=== PATIENT | male | born 1945 | race Caucasian/White ===

== ENCOUNTER 2016-10-26 10:37 | Inpatient (IN) | payer OTHER ==
[2016-10-26] VITALS (12 sets, daily range): BP systolic 69–127; BP diastolic 43–55
[~2016-10-26] VITALS: Ht 170.2 cm; Wt 90.1 kg
--- NOTE | 2016-10-26 15:00 | HP ---
ADMIT DATE: 10/26/2016 CHIEF COMPLAINT: CHF. HISTORY OF PRESENT ILLNESS: The patient is a pleasant 71-year-old male who is a . Basically, he was at the [place] this past week. He has been there for a few days. They were treating him for CHF and I think possibly for a GI bleed, although when they called me from the [place], they told me they are transferring him for CHF. He has now been accepted here. He has just got up to the floor where he is a little hypotensive. We started a little bit of fluid. PAST SURGICAL HISTORY: Per the patient, he had a permanent pacemaker at within the past couple of years. He also had bypass surgery at [facility] within the past few years. PAST MEDICAL HISTORY: He has a history of chronic CHF, diabetes, hypertension, hyperlipidemia. ALLERGIES: None. FAMILY HISTORY: Hypertension. SOCIAL HISTORY: He is a retired . He fought in [place]. He does not smoke or take drugs. MEDICATIONS: Reviewed, please refer to the MRAD. REVIEW OF SYSTEMS: GENERAL: No history of weight change or fevers. He complains of weakness. SKIN: No bruising, hair changes or rashes. EYES: No blurred, double or loss of vision. NOSE AND THROAT: No history of nosebleeds, hoarseness or sore throat. HEART: No history of palpitations, chest pain or shortness of breath on exertion. LUNGS: Denies cough, hemoptysis, or wheezing. He complains of shortness of breath. GASTROINTESTINAL: Denies changes in appetite, nausea, vomiting, diarrhea or constipation. GENITOURINARY: No history of frequency, urgency, hesitancy or nocturia. NEUROLOGIC: Denies history of numbness, tingling, tremor or weakness. PSYCHIATRIC: No history of panic, anxiety or depression. ENDOCRINE: No history of heat or cold intolerance, polyuria or polydipsia. EXTREMITIES: Denies muscle weakness, joint pain, pain on walking or stiffness. PHYSICAL EXAMINATION: VITAL SIGNS: Temperature afebrile, pulse 68, respirations 18, blood pressure 100/80. GENERAL: He is alert, cooperative. HEART: Normal S1, S2 with a soft S3. LUNGS: Clear. GASTROINTESTINAL: Abdomen is soft, decreased bowel sounds, minimal tenderness. EXTREMITIES: 1+ edema. SKIN: No rashes. PSYCHIATRIC: He is a little bit anxious. VASCULAR: Good capillary refill. ENDOCRINE: No thyromegaly. LYMPHATICS: No cervical nodes. HEMATOPOIETIC: No bruising. LABORATORY DATA: Pending. ASSESSMENT AND PLAN: Pmezw-lj-tfmsaol systolic and diastolic heart failure and xbmvc-bx-tofpuga anemia. The patient ____. We will try to give him diuretics, but he is hypotensive, so we are actually having to give him some fluids at this point. Consult cardiology, serial enzymes, serial EKGs, echocardiogram, consult GI. We will check a CBC and a CMP. PROGNOSIS: Guarded. ARGENIS BURT DO DR: ERIC/pepper JOB#: [id number] / [id number]
--- NOTE | 2016-10-26 15:35 | PDOC2 ---
CARDIAC CONSULT DATE OF CONSULT Date of Consult DATE: 10/26/16 TIME: 15:28 HISTORY OF PRESENT ILLNESS HISTORY OF PRESENT ILLNESS ALLERGIES ALLERGIES: Coded Allergies: Ppthvsw-Tvj-Ymo Reductase Inhibitor (Verified Allergy, Intermediate, ) bupropion (Verified Allergy, Intermediate, 10/26/16) isosorbide (Verified Allergy, Intermediate, 10/26/16) metformin (Verified Allergy, Intermediate, 10/26/16) mupirocin (Verified Allergy, Intermediate, 10/26/16) terazosin (Verified Allergy, Intermediate, 10/26/16) VITALS VITALS Vital Signs Date Time Temp Pulse Resp B/P Pulse Ox O2 Delivery O2 Flow Rate FiO2 10/26/16 14:56 59 69/43 Nasal Cannula 4.0 MEHDI GALVAN VOCATIONAL NURSE LVN Oct 26, 2016 15:35
[2016-10-26 15:48] LABS: CALCIUM 7.6 mg/dL (8.5-10.1); CREATININE 3.3 mg/dL (0.7-1.3); GFR 18.5; POTASSIUM 4.4 mmol/L (3.5-5.1); TOTAL BILIRUBIN 0.5 mg/dL (0.2-1.0); TOTAL PROTEIN 6.1 g/dL (6.4-8.2)
[2016-10-26 15:59] LABS: MAGNESIUM 2.4 mg/dL (1.8-2.4)
--- NOTE | 2016-10-26 16:01 | EKG ---
[facility] [address] [place] [address] Test Date: 2016-10-26 Test Time: 15:59:19 Pat Name: EMI YIN Department: Room: 205 1 Gender: M Settlement Technician: FLAKITO : 1945 Requested By: MEHDI GALVAN Order Number: [id number] Reading MD: Ventura Singh Measurements Intervals [place] Rate: 60 P: DE: QRS: -85 QRSD: 154 T: -72 QT: 502 QTc: 502 Interpretive Statements V-PACED Electronically Signed On 10-27-2016 17:56:46 CDT by Ventura Singh
[2016-10-26 16:07] LABS: CHOLESTEROL/HDL RATIO 7.8
--- NOTE | 2016-10-26 16:30 | PDOC2 ---
GI CONSULT Reason For Consult: GI Bleed? HPI: HPI: Seen earlier this afternoon just before transfer to ICU for hypotension. 71 y/ o transferred from [facility], admitted diagnosis CHF. Was apparently admitted there for CHF, had chest pain and elevated troponin, and was hypotensive on nitro drip. EGD and cardiac cath discussed, neither performed. History from pt , daughter, RN, and records. GI-ghosh, has been anemic on Plavix and ASA since CABGx5 in 08/2016 w/o obvious bleeding. Reports last EGD and colonoscopy in 2016 at [facility], unsure why performed or results. H/o GERD controlled w / omeprazole. Currently has some abd discomfort, vaguely describes. Denies chest pain currently. Thinks has been eating okay w/o n/v. No weight loss. Has had some diarrhea (can't tell me consistently of stools or frequency) x 3 days. Per daughter, has been confused at home; found sleeping on box springs instead of mattress, another time found naked. 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) Drugs: None ROS: GEN: Denies fevers, chills, sweats HEENT: Denies blurred vision, sore throat CV: CP resolved RESP: Denies shortness of air, cough GI: Per HPI : Denies hematuria, dysuria ENDO: Denies weight changes NEURO: confusion MSK: weakness SKIN: Denies jaundice, pruritus VItals: Vitals: Vital Signs Date Time Temp Pulse Resp B/P Pulse Ox O2 Delivery O2 Flow Rate FiO2 10/26/16 14:56 59 69/43 Nasal Cannula 4.0 Labs: Labs: Laboratory Tests Test 10/26/16 15:10 Sodium Level 129mmol/L (136-145) Potassium Level 4.4mmol/L (3.5-5.1) Chloride Level 97mmol/L (98-107) Carbon Dioxide Level 18mmol/L (21-32) Anion Gap 14 (6-14) Blood Urea Nitrogen 80mg/dL (8-26) Creatinine 3.3mg/dL (0.7-1.3) Estimated GFR (Cockcroft-Gault) 18.5 BUN/Creatinine Ratio 24 (6-20) Glucose Level 168mg/dL (70-99) Calcium Level 7.6mg/dL (8.5-10.1) Magnesium Level 2.4mg/dL (1.8-2.4) Total Bilirubin 0.5mg/dL (0.2-1.0) Aspartate Amino Transf (AST/SGOT) 62U/L (15-37) Alanine Aminotransferase (ALT/SGPT) 47U/L (16-63) Alkaline Phosphatase 40U/L (46-116) Troponin I Quantitative 0.051ng/mL (0.000-0.055) Total Protein 6.1g/dL (6.4-8.2) Albumin 3.0g/dL (3.4-5.0) Albumin/Globulin Ratio 1.0 (1.0-1.7) Triglycerides Level 184mg/dL (0-150) Cholesterol Level 109mg/dL (0-200) LDL Cholesterol, Calculated 58mg/dL (0-100) VLDL Cholesterol, Calculated 37mg/dL (0-40) Non-HDL Cholesterol Calculated 95mg/dL (0-129) HDL Cholesterol 14mg/dL (40-60) Cholesterol/HDL Ratio 7.8 Allergies: Coded Allergies: Mmzivyr-Hxt-Iro Reductase Inhibitor (Verified Allergy, Intermediate, ) bupropion (Verified Allergy, Intermediate, 10/26/16) isosorbide (Verified Allergy, Intermediate, 10/26/16) metformin (Verified Allergy, Intermediate, 10/26/16) mupirocin (Verified Allergy, Intermediate, 10/26/16) terazosin (Verified Allergy, Intermediate, 10/26/16) Medications: Please see EMR. Imaging: Imaging: - PE: GEN: NAD HEENT: atraumatic, PERRL LUNGS: clear anteriorly HEART: distant ABD: BS+, diffuse discomfort EXTREMITY: no edema SKIN: no rashes, no jaundice NEURO/PSYCH: A & O 3 A/P: A/P: Hypotension CHF, CAD s/p CABG -had chest pain and elevated troponin at [place], transferred here Anemia -apparently history of since 08/2016, since on Plavix after CABG -denies overt bleeding GERD -controlled w/ PPI, reports EGD in 08/2016, unsure results CRC screen -reports colonoscopy in 08/2016, unsure results ?AMS -per family -- Labs and cardiology consult pending, [facility] H[facility] 9.6. Will start IV PPI. Observe w/ recent EGD and colonoscopy - will request records. CECILIA DOWD Oct 26, 2016 16:30
--- NOTE | 2016-10-26 16:51 | RAD ---
Portable chest, 10/26/2016: History: Congestive heart failure No previous chest radiographs are available at this time for comparison purposes. There has been a previous median sternotomy. A right-sided transvenous pacemaker is in place with a single lead extending into the right ventricle. The heart size and pulmonary vascularity are normal. No pulmonary infiltrates are seen. There is no evidence of pleural fluid. IMPRESSION: No acute cardiopulmonary abnormality is detected.
[2016-10-26] MEDS: PANTOPRAZOLE IV PUSH 40 MG VIAL. IVP SCH (17:18)
[2016-10-27] VITALS (24 sets, daily range): BP systolic 82–153; BP diastolic 33–76
[2016-10-27 04:50] LABS: BASO % 0 % (0-3); EOS % 0 % (0-3); HEMATOCRIT 29.6 % (39.0-53.0); HEMOGLOBIN 9.4 g/dL (13.0-17.5); LYMPH # 0.7 x10^3/uL (1.0-4.8); LYMPH % 9 % (24-48); MEAN CORPUSCULAR HEMOGLOBIN 26 pg (25-35); MEAN CORPUSCULAR HGB CONC 32 g/dL (31-37); MEAN CORPUSCULAR VOLUME 81 fL (79-100); MONO % 16 % (0-9); NEUT % 75 % (31-73); PLATELET COUNT 110 x10^3/uL (140-400); RED BLOOD COUNT 3.64 x10^6/uL (4.30-5.70); WHITE BLOOD COUNT 8.3 x10^3/uL (4.0-11.0)
[2016-10-27] MEDS: PANTOPRAZOLE IV PUSH 40 MG VIAL. IVP SCH (07:47)
[2016-10-27] MEDS ORDERED: FUROSEMIDE 20 MG/2 ML VIAL. IVP ONE (08:30)
[2016-10-27 08:32] LABS: HCO3 ABG 13 mmol/L (21-28); PH ABG 7.46 (7.35-7.45); PO2 ABG 84 mmHg (65-108); SAT O2 ABG 96 % (92-99)
[2016-10-27 08:41] LABS: % BLASTS 1 % (0-0); ANISOCYTOSIS SLIGHT; PLT ESTIMATE DECREASED (ADEQUATE)
[2016-10-27 08:42] LABS: BURR CELLS FEW; OVALOCYTES FEW
[2016-10-27 08:44] LABS: PCO2 ABG 19 mmHg (35-46)
[2016-10-27 08:45] LABS: FIO2 ABG 5 lpm cpap
--- NOTE | 2016-10-27 09:49 | PDOC2 ---
CONSULT Date of Consult Date of Consult DATE: 10/27/16 TIME: 09:16 Reason for Consult Reason for Consult: BELINDA/ CKD III Referring Physician Referring Physician: Dr Soto Identification/Chief Complaint Chief Complaint SOB/ GI BLeed Problems: Source Source: Chart review, Patient History of Present Illness Reason for Visit: Transfer from [place]; Records reviewed Past Medical History Cardiovascular: CAD, CHF, HTN, Hyperlipidemia Endocrine: Diabetes (2) Past Surgical History Past Surgical History: Pacemaker, CABG Social History Social History [place] Vet Quit ALCOHOL: other (previously drank heavily, 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) Drugs: None Current Medications Current Medications Current Medications Pantoprazole Sodium 40 mg 40 mg DAILYAC IVP Last administered on 10/27/16 07: 47; Start 10/26/16 at 17:00 Dobutamine HCl/ Dextrose 250 ml @ 0 mls/hr CONT PRN IV SEE I/O RECORD Last administered on 10/27/16 08:15; Start 10/26/16 at 17:00 Furosemide (Lasix) 60 mg 1X ONCE IVP Last administered on 10/27/16 08:15; Start 10/27/16 at 08:30; Stop 10/27/16 at 08:31; Status DC Allergies Allergies: Coded Allergies: Iyikmta-Noa-Qrd Reductase Inhibitor (Verified Allergy, Intermediate, ) bupropion (Verified Allergy, Intermediate, 10/26/16) isosorbide (Verified Allergy, Intermediate, 10/26/16) metformin (Verified Allergy, Intermediate, 10/26/16) mupirocin (Verified Allergy, Intermediate, 10/26/16) terazosin (Verified Allergy, Intermediate, 10/26/16) ROS Review of System GEN: no Fevers no Chills EYES: no Visual Complaints ENT: no EN Drainage no Hearing deficiets CVS: ? Orthopnea no CP RESP: ++ SOB + RAPHAEL GI: no Nausea no Vomiting : no Dysuria no Urgency HEME: no easy bruising no Palp Ly Nodes NEURO no Focal Weakness no Sz PSYCH: no Suicidal Ideation no Depression SKIN: no Rashes ENDO: no Polyuria or Polydipsia no Hot/Cold Intolerance MU SK: ch Back Arthraigia no Myalgia Physical Exam Physical Exam General Appearance: Awake Alert Oriented x 3 In mod Distress Eyes: VIsion Unchanged Conjunctiva Normal EN: No EN Drainage Mucous Memb. dry Neck: no JVD min JVP Supple no Thyromegaly CVS: S1 S2 no audible Murmur No Gallop No Rub no Edema Resp: no Rales end exp Rhonchi + Acc. Muscle use GI: BAS +ve NO Bruit Non Tender Non Distended : no CVA tenderness; no Suprapubic Tenderness SKIN: no Rashes Breast Exam deferred Mu.Sk: Adequate ROM no Muscle Atrophy Heme: Unable to palpate Obvious LAD no palp Splenomegaly NEURO: Good Strength and Tone Cranial Nerves II - XII grossly intact Psych: not Depressed no Active hallucination Vital Signs Vital Signs Date Time Temp Pulse Resp B/P Pulse Ox O2 Delivery O2 Flow Rate FiO2 10/27/16 09:05 67 33 136/45 93 BiPAP/CPAP 10/27/16 08:20 4.0 10/27/16 04:00 98.3 98.3 Assessment & Plan ARF/ ATN ? : May still be somewhat pre-renal from [facility] (not [facility] ) Lasix and Cmyopathy too. Current FLuid and E-lyte status does not necessitate emergent need for Dialysis. Will re-evaluate for Dialysis in am. ? BELINDA due to Saxagliptin Oliguria - better with IVF - suspect intrvascularly dry. CmyoPahty with ^ed BNP - now on Doubtamine Met ACidosis - may be contributing to SOB. IV Bicarb (Current ABG was done on CPAP and hence may be overcompensated from resp standpoint) SOB/ ? Orthopnea - Consider Pulm Eval; Nebs for possible COPD exac; nebs ordered hypoNatremia - reval after IV Bicarb - may need IVF Anemia: GI eval ongoing h/o HTN with recent Hypotension: Current BP meds reviewed. defer to cardiology to optmize Discussed Plan of Care and prognosis etc. at length with pt and RN Labs Labs Laboratory Tests Test 10/26/16 15:10 10/27/16 03:30 10/27/16 08:25 Sodium Level 129mmol/L (136-145) Potassium Level 4.4mmol/L (3.5-5.1) Chloride Level 97mmol/L (98-107) Carbon Dioxide Level 18mmol/L (21-32) Anion Gap 14 (6-14) Blood Urea Nitrogen 80mg/dL (8-26) Creatinine 3.3mg/dL (0.7-1.3) Estimated GFR (Cockcroft-Gault) 18.5 BUN/Creatinine Ratio 24 (6-20) Glucose Level 168mg/dL (70-99) Calcium Level 7.6mg/dL (8.5-10.1) Magnesium Level 2.4mg/dL (1.8-2.4) Total Bilirubin 0.5mg/dL (0.2-1.0) Aspartate Amino Transf (AST/SGOT) 62U/L (15-37) Alanine Aminotransferase (ALT/SGPT) 47U/L (16-63) Alkaline Phosphatase 40U/L (46-116) Creatine Kinase 220U/L (39-308) Creatine Kinase MB (Mass) 1.0ng/mL (0.0-3.6) Creatine Kinase MB Relative Index 0.5% (0-4) Troponin I Quantitative 0.051ng/mL (0.000-0.055) YS-Mpv-F-Type Natriuretic Peptide 7777pg/mL (0-124) Total Protein 6.1g/dL (6.4-8.2) Albumin 3.0g/dL (3.4-5.0) Albumin/Globulin Ratio 1.0 (1.0-1.7) Triglycerides Level 184mg/dL (0-150) Cholesterol Level 109mg/dL (0-200) LDL Cholesterol, Calculated 58mg/dL (0-100) VLDL Cholesterol, Calculated 37mg/dL (0-40) Non-HDL Cholesterol Calculated 95mg/dL (0-129) HDL Cholesterol 14mg/dL (40-60) Cholesterol/HDL Ratio 7.8 White Blood Count 8.3x10^3/uL (4.0-11.0) Red Blood Count 3.64x10^6/uL (4.30-5.70) Hemoglobin 9.4g/dL (13.0-17.5) Hematocrit 29.6% (39.0-53.0) Mean Corpuscular Volume 81fL (79-100) Mean Corpuscular Hemoglobin 26pg (25-35) Mean Corpuscular Hemoglobin Concent 32g/dL (31-37) Red Cell Distribution Width 19.0% (11.5-14.5) Platelet Count 110x10^3/uL (140-400) Neutrophils (%) (Auto) 75% (31-73) Lymphocytes (%) (Auto) 9% (24-48) Monocytes (%) (Auto) 16% (0-9) Eosinophils (%) (Auto) 0% (0-3) Basophils (%) (Auto) 0% (0-3) Neutrophils # (Auto) 6.2x10^3uL (1.8-7.7) Lymphocytes # (Auto) 0.7x10^3/uL (1.0-4.8) Monocytes # (Auto) 1.4x10^3/uL (0.0-1.1) Eosinophils # (Auto) 0.0x10^3/uL (0.0-0.7) Basophils # (Auto) 0.0x10^3/uL (0.0-0.2) Segmented Neutrophils % 80% (35-66) Lymphocytes % 8% (24-48) Monocytes % 10% (0-10) Metamyelocytes % 1% (0-0) Blast Cells % (Manual) 1% (0-0) Platelet Estimate Decreased (ADEQUATE) Anisocytosis Slight Ovalocytes Few [place] Cells Few O2 Saturation 96% (92-99) Arterial Blood pH 7.46 (7.35-7.45) Arterial Blood pCO2 at Patient Temp 19mmHg (35-46) Arterial Blood pO2 at Patient Temp 84mmHg (65-108) Arterial Blood HCO3 13mmol/L (21-28) Arterial Blood Base Excess -9mmol/L (-3-3) FiO2 5 lpm cpap Laboratory Tests Test 10/26/16 15:10 10/27/16 03:30 10/27/16 08:25 Sodium Level 129mmol/L (136-145) Potassium Level 4.4mmol/L (3.5-5.1) Chloride Level 97mmol/L (98-107) Carbon Dioxide Level 18mmol/L (21-32) Anion Gap 14 (6-14) Blood Urea Nitrogen 80mg/dL (8-26) Creatinine 3.3mg/dL (0.7-1.3) Estimated GFR (Cockcroft-Gault) 18.5 BUN/Creatinine Ratio 24 (6-20) Glucose Level 168mg/dL (70-99) Calcium Level 7.6mg/dL (8.5-10.1) Magnesium Level 2.4mg/dL (1.8-2.4) Total Bilirubin 0.5mg/dL (0.2-1.0) Aspartate Amino Transf (AST/SGOT) 62U/L (15-37) Alanine Aminotransferase (ALT/SGPT) 47U/L (16-63) Alkaline Phosphatase 40U/L (46-116) Creatine Kinase 220U/L (39-308) Creatine Kinase MB (Mass) 1.0ng/mL (0.0-3.6) Creatine Kinase MB Relative Index 0.5% (0-4) Troponin I Quantitative 0.051ng/mL (0.000-0.055) WD-Dav-N-Type Natriuretic Peptide 7777pg/mL (0-124) Total Protein 6.1g/dL (6.4-8.2) Albumin 3.0g/dL (3.4-5.0) Albumin/Globulin Ratio 1.0 (1.0-1.7) Triglycerides Level 184mg/dL (0-150) Cholesterol Level 109mg/dL (0-200) LDL Cholesterol, Calculated 58mg/dL (0-100) VLDL Cholesterol, Calculated 37mg/dL (0-40) Non-HDL Cholesterol Calculated 95mg/dL (0-129) HDL Cholesterol 14mg/dL (40-60) Cholesterol/HDL Ratio 7.8 White Blood Count 8.3x10^3/uL (4.0-11.0) Red Blood Count 3.64x10^6/uL (4.30-5.70) Hemoglobin 9.4g/dL (13.0-17.5) Hematocrit 29.6% (39.0-53.0) Mean Corpuscular Volume 81fL (79-100) Mean Corpuscular Hemoglobin 26pg (25-35) Mean Corpuscular Hemoglobin Concent 32g/dL (31-37) Red Cell Distribution Width 19.0% (11.5-14.5) Platelet Count 110x10^3/uL (140-400) Neutrophils (%) (Auto) 75% (31-73) Lymphocytes (%) (Auto) 9% (24-48) Monocytes (%) (Auto) 16% (0-9) Eosinophils (%) (Auto) 0% (0-3) Basophils (%) (Auto) 0% (0-3) Neutrophils # (Auto) 6.2x10^3uL (1.8-7.7) Lymphocytes # (Auto) 0.7x10^3/uL (1.0-4.8) Monocytes # (Auto) 1.4x10^3/uL (0.0-1.1) Eosinophils # (Auto) 0.0x10^3/uL (0.0-0.7) Basophils # (Auto) 0.0x10^3/uL (0.0-0.2) Segmented Neutrophils % 80% (35-66) Lymphocytes % 8% (24-48) Monocytes % 10% (0-10) Metamyelocytes % 1% (0-0) Blast Cells % (Manual) 1% (0-0) Platelet Estimate Decreased (ADEQUATE) Anisocytosis Slight Ovalocytes Few [place] Cells Few O2 Saturation 96% (92-99) Arterial Blood pH 7.46 (7.35-7.45) Arterial Blood pCO2 at Patient Temp 19mmHg (35-46) Arterial Blood pO2 at Patient Temp 84mmHg (65-108) Arterial Blood HCO3 13mmol/L (21-28) Arterial Blood Base Excess -9mmol/L (-3-3) FiO2 5 lpm cpap AILIN MCBRIDE MD Oct 27, 2016 09:49
[2016-10-27] MEDS ORDERED: FERR324T5 PO (10:00)
[2016-10-27] MEDS ORDERED: OMEP20TA PO (10:00)
[2016-10-27] MEDS ORDERED: LISI40TA PO (10:00)
[2016-10-27] MEDS ORDERED: POTA20TA82 PO (10:00)
[2016-10-27] MEDS ORDERED: CHOL10003 PO (10:00)
[2016-10-27] MEDS ORDERED: CRESTOR10 MG PO (10:00)
[2016-10-27] MEDS ORDERED: TAMS0.4C2 PO (10:00)
[2016-10-27] MEDS ORDERED: MENT1ADH29 TP (10:00)
[2016-10-27] MEDS ORDERED: NITR0.3T SL (10:00)
[2016-10-27] MEDS ORDERED: SAXA5TAB PO (10:00)
[2016-10-27] MEDS ORDERED: IPRA4AER IH (10:00)
[2016-10-27] MEDS ORDERED: LEVO125T5 PO (10:00)
[2016-10-27] MEDS ORDERED: INSU100I17 SQ (10:00)
[2016-10-27] MEDS ORDERED: ALBU2.5V14 NEB (10:00)
[2016-10-27] MEDS ORDERED: METH500T7 PO (10:00)
[2016-10-27] MEDS ORDERED: CARB10DR OP (10:00)
[2016-10-27] MEDS ORDERED: BRIM5DRO3 EACHEYE (10:00)
[2016-10-27] MEDS ORDERED: FURO40TA4 PO (10:00)
[2016-10-27] MEDS ORDERED: DILT300C2 PO (10:00)
[2016-10-27] MEDS ORDERED: GABA-586 PO (10:00)
[2016-10-27] MEDS ORDERED: ASPI325T4 PO (10:00)
[2016-10-27] MEDS ORDERED: LIDOCAINE 1% / SOD BICARB 8.4% 20 ML VIAL. IJ ONE ×2 (10:01→10:15)
[2016-10-27] MEDS ORDERED: HEPARIN for IV BOLUS 10,000 UNIT/10 ML VIAL. ONE (10:01)
--- NOTE | 2016-10-27 10:57 | ACF ---
Admit Criteria Forms Admit Criteria Forms Admit Criteria Forms HEART FAILURE: COMMON COMPLICATIONS Clinical Indications for Inpatient Care (Place 'X' for any and all applicable criteria): Ongoing inpatient care may be indicated for heart failure with ANY ONE of the following (1)(2)(3)(4)(5): [ ]I. Ongoing need for care for primary condition requiring frequent therapy adjustments because of changes in cardiac function (eg, drug dosage changes for drugs that are renally metabolized) [ ]II. New-onset heart failure [ ]III. Heart failure with decreased urine output not responsive to attempts to optimize volume status [ ]IV. Acute cardiac ischemia causing or associated with failure [ ]V. Complications of heart failure, including ANY ONE of the following: [ ]a) Pericardial effusion [ ]b) Symptomatic pleural effusion [ ]c) O2 saturation <90% or PO2 < 60 mm Hg (8.0 kPa) on room air or require baseline supplemental O2 [ ]d) Tachypnea [ ]e) Dyspnea [ ]f) Syncope [ ]g) Change in mental status [ ]h) Acute renal insufficiency that is severe (reduction of more than 50% in estimated glomerular filtration rate from baseline) or progressive reduction of more than 25% in estimated glomerular filtration rate from baseline, with creatinine continuing to rise) [ ]i) Hemodynamic instability [ ]j) Anasarca [ ]k) Clinically significant metabolic abnormalities due to heart failure (eg, new-onset metabolic acidosis) Extended stay beyond goal length of stay for primary condition may be needed until ALL of the following are present(1)(3): [ ]a) Stable and effective diuretic regimen established (or patient on stable dialysis regimen if in chronic renal failure) [ ]b) Breathing comfortably at rest [ ]c) Saturation of arterial oxygen greater than 90% or at acceptable baseline [ ]d) Pulmonary edema absent or improved [ ]e) Hemodynamic stability [ ]f) Volume status acceptable on oral medication [ ]g) Peripheral or sacral edema absent or improved [ ]h) Renal function stable and manageable at a lower level of care [ ]i) Complications (eg, pleural effusion) resolved or manageable at a lower level of care [ ]j) Patient or caregiver has received written discharge instructions or educational material addressing activity level, diet, discharge medications, follow-up appointment, weight monitoring, and what to do if symptoms worsen The original [facility] content created by [employer]ade [employer]ar has been revised. The portions of the content which have been revised are identified through the use of italic text or in bold, and Sade Tobar has neither reviewed nor approved the modified material.All other unmodified content is copyright Sade Tobar. Please see references footnoted in the original Sade Tobar edition 2016 KIA AGUILLON Oct 27, 2016 10:57
[2016-10-27] MEDS: SODIUM BICARB ADULT 8.4% 50 MEQ/50 ML DISP.SYRIN. IV SCH ×2 (11:05→12:38)
--- NOTE | 2016-10-27 11:15 | PDOC ---
Subjective: Subjective: No abd pain. Objective: Objective: Per RN - 1 stool, brownish/greenish, liquid. Tolerating clears. [facility] re: [facility]. ?dialysis cath insertion today Vital Signs: Vital Signs Date Time Temp Pulse Resp B/P Pulse Ox O2 Delivery O2 Flow Rate FiO2 10/27/16 11:03 67 30 140/50 92 BiPAP/CPAP 10/27/16 10:35 98.8 98.8 10/27/16 09:49 5.0 Labs: Laboratory Tests Test 10/26/16 15:10 10/27/16 03:30 10/27/16 08:25 Sodium Level 129mmol/L Potassium Level 4.4mmol/L Chloride Level 97mmol/L Carbon Dioxide Level 18mmol/L Anion Gap 14 Blood Urea Nitrogen 80mg/dL Creatinine 3.3mg/dL Estimated GFR (Cockcroft-Gault) 18.5 BUN/Creatinine Ratio 24 Glucose Level 168mg/dL Calcium Level 7.6mg/dL Magnesium Level 2.4mg/dL Total Bilirubin 0.5mg/dL Aspartate Amino Transf (AST/SGOT) 62U/L Alanine Aminotransferase (ALT/SGPT) 47U/L Alkaline Phosphatase 40U/L Creatine Kinase 220U/L Creatine Kinase MB (Mass) 1.0ng/mL Creatine Kinase MB Relative Index 0.5% Troponin I Quantitative 0.051ng/mL IA-Boa-J-Type Natriuretic Peptide 7777pg/mL Total Protein 6.1g/dL Albumin 3.0g/dL Albumin/Globulin Ratio 1.0 Triglycerides Level 184mg/dL Cholesterol Level 109mg/dL LDL Cholesterol, Calculated 58mg/dL VLDL Cholesterol, Calculated 37mg/dL Non-HDL Cholesterol Calculated 95mg/dL HDL Cholesterol 14mg/dL Cholesterol/HDL Ratio 7.8 White Blood Count 8.3x10^3/uL Red Blood Count 3.64x10^6/uL Hemoglobin 9.4g/dL Hematocrit 29.6% Mean Corpuscular Volume 81fL Mean Corpuscular Hemoglobin 26pg Mean Corpuscular Hemoglobin Concent 32g/dL Red Cell Distribution Width 19.0% Platelet Count 110x10^3/uL Neutrophils (%) (Auto) 75% Lymphocytes (%) (Auto) 9% Monocytes (%) (Auto) 16% Eosinophils (%) (Auto) 0% Basophils (%) (Auto) 0% Neutrophils # (Auto) 6.2x10^3uL Lymphocytes # (Auto) 0.7x10^3/uL Monocytes # (Auto) 1.4x10^3/uL Eosinophils # (Auto) 0.0x10^3/uL Basophils # (Auto) 0.0x10^3/uL Segmented Neutrophils % 80% Lymphocytes % 8% Monocytes % 10% Metamyelocytes % 1% Blast Cells % (Manual) 1% Platelet Estimate Decreased Anisocytosis Slight Ovalocytes Few [place] Cells Few O2 Saturation 96% Arterial Blood pH 7.46 Arterial Blood pCO2 at Patient Temp 19mmHg Arterial Blood pO2 at Patient Temp 84mmHg Arterial Blood HCO3 13mmol/L Arterial Blood Base Excess -9mmol/L FiO2 5 lpm cpap Imaging: CXR 10/26/16 IMPRESSION: No acute cardiopulmonary abnormality is detected. PE: GEN: BiPAP LUNGS: CTAB HEART: distant ABD: S/ND/NT NEURO/PSYCH: A & O 3 OTHER: stool on floor, liquid, dark brown/green A/P: CHF Resp failure on BiPAP BELINDA/CKD Anemia -apparently history of since 08/2016, previously on Plavix -no obvious bleeding -h/o GERD on PPI -EGD and colonoscopy at [facility] in 07/2016 ---> recs requested -- Await records, continue PPI. Will check Hgb again. CECILIA DOWD Oct 27, 2016 11:14
[2016-10-27] MEDS ORDERED: POLYVINYL ALCOHOL 1.4% OPHTH SOLUTION 15ML BOTTLE. OU PRN (11:30)
[2016-10-27] MEDS ORDERED: ALBUTEROL SULFATE 2.5 MG/3 ML NEBU. NEB PRN (11:30)
[2016-10-27] MEDS: INSULIN ASPART 300 UNITS/3 ML INSULN.PEN SQ SCH ×2 (12:00→17:00)
[2016-10-27] MEDS: FUROSEMIDE 40 MG TABLET. PO SCH ×3 (12:00→16:29)
[2016-10-27] MEDS: IPRATRPIUM/ALBUTEROL 0.5/2.5MG 3 ML NEBU. NEB SCH ×3 (12:00→19:49)
--- NOTE | 2016-10-27 12:27 | PDOC ---
Exam Web Applications Developer Web Applications Developer Leida Recreation Therapy Aide Recreation Therapy Aide V Merry Pre-Procedure Diagnosis Pre-Procedure Diagnosis 71 YO male ICU patient with respiratory failure on BiPAP and with BELINDA on CKD, with oliguria. Bedside ICU temp HDC requested by Renal. Post-Procedure Diagnosis Post-Procedure Diagnosis Same Procedure Performed Procedure Performed Bedside ICU sono guided temp HDC insertion. Type of Anesthesia Type of Anesthesia Local Estimated Blood Loss EBL: Minimal Drain/Tubes Drains/Tubes Left IJ 14F 24cm Schon Temp HDC Condition of Patient Condition of Patient No change. No apparent complication. Disposition Disposition STAT pCXR requested for HDC position. Full report to follow. LIANE KENNY MD Oct 27, 2016 12:27
[2016-10-27] MEDS ORDERED: NON FORMULARY ITEM (Ipratropium/Albuterol Sulfate (Combivent Respimat Inhal) 1 INH) IH SCH (13:00)
--- NOTE | 2016-10-27 13:09 | RAD ---
Exam: AP portable chest. History: Status post temporary hemodialysis catheter insertion. Comparison: 10/26/2016. Findings: The heart and mediastinal structures are within normal limits for size. Lungs are without infiltrate. No pneumothorax or pleural effusion is appreciated. Median sternotomy wires are present. Single lead pacemaker right subclavian approach is present. There has been interval placement of left internal jugular dialysis catheter with tip projecting at the superior aspect of the right atrium. Impression: 1. No acute cardiopulmonary process. 2. Left internal jugular dialysis catheter tip projects at the superior aspect of the right atrium.
[2016-10-27] MEDS: LINAGLIPTIN 5 MG TABLET PO SCH (13:21)
[2016-10-27] MEDS: CHOLECALCIFEROL (VITAMIN D3) 1,000 UNIT TABLET PO SCH (13:21)
[2016-10-27] MEDS: FERROUS SULFATE 325 MG TABLET. PO SCH ×2 (13:21→17:01)
[2016-10-27] MEDS: GABAPENTIN 300 MG CAPSULE. PO SCH ×2 (13:22→20:58)
[2016-10-27] MEDS: ASPIRIN 325 MG TABLET PO SCH (13:22)
[2016-10-27] MEDS: LISINOPRIL 40 MG TABLET. PO SCH (13:22)
[2016-10-27] MEDS: LEVOTHYROXINE 125 MCG TABLET PO SCH (13:22)
[2016-10-27] MEDS: BRIMONIDINE 0.2% OPHTH SOLUTION 5ML BOTTLE. OU SCH ×2 (13:22→20:58)
--- NOTE | 2016-10-27 13:24 | PDOC ---
PULMONARY PROGRESS NOTES Vitals Vital Signs Date Time Temp Pulse Resp B/P Pulse Ox O2 Delivery O2 Flow Rate FiO2 10/27/16 12:24 67 29 126/47 89 BiPAP/CPAP 10/27/16 11:50 5.0 10/27/16 10:35 98.8 98.8 Labs Laboratory Tests Test 10/26/16 15:10 10/27/16 03:30 10/27/16 08:25 Sodium Level 129mmol/L (136-145) Potassium Level 4.4mmol/L (3.5-5.1) Chloride Level 97mmol/L (98-107) Carbon Dioxide Level 18mmol/L (21-32) Anion Gap 14 (6-14) Blood Urea Nitrogen 80mg/dL (8-26) Creatinine 3.3mg/dL (0.7-1.3) Estimated GFR (Cockcroft-Gault) 18.5 BUN/Creatinine Ratio 24 (6-20) Glucose Level 168mg/dL (70-99) Calcium Level 7.6mg/dL (8.5-10.1) Magnesium Level 2.4mg/dL (1.8-2.4) Total Bilirubin 0.5mg/dL (0.2-1.0) Aspartate Amino Transf (AST/SGOT) 62U/L (15-37) Alanine Aminotransferase (ALT/SGPT) 47U/L (16-63) Alkaline Phosphatase 40U/L (46-116) Creatine Kinase 220U/L (39-308) Creatine Kinase MB (Mass) 1.0ng/mL (0.0-3.6) Creatine Kinase MB Relative Index 0.5% (0-4) Troponin I Quantitative 0.051ng/mL (0.000-0.055) US-Ohz-V-Type Natriuretic Peptide 7777pg/mL (0-124) Total Protein 6.1g/dL (6.4-8.2) Albumin 3.0g/dL (3.4-5.0) Albumin/Globulin Ratio 1.0 (1.0-1.7) Triglycerides Level 184mg/dL (0-150) Cholesterol Level 109mg/dL (0-200) LDL Cholesterol, Calculated 58mg/dL (0-100) VLDL Cholesterol, Calculated 37mg/dL (0-40) Non-HDL Cholesterol Calculated 95mg/dL (0-129) HDL Cholesterol 14mg/dL (40-60) Cholesterol/HDL Ratio 7.8 White Blood Count 8.3x10^3/uL (4.0-11.0) Red Blood Count 3.64x10^6/uL (4.30-5.70) Hemoglobin 9.4g/dL (13.0-17.5) Hematocrit 29.6% (39.0-53.0) Mean Corpuscular Volume 81fL (79-100) Mean Corpuscular Hemoglobin 26pg (25-35) Mean Corpuscular Hemoglobin Concent 32g/dL (31-37) Red Cell Distribution Width 19.0% (11.5-14.5) Platelet Count 110x10^3/uL (140-400) Neutrophils (%) (Auto) 75% (31-73) Lymphocytes (%) (Auto) 9% (24-48) Monocytes (%) (Auto) 16% (0-9) Eosinophils (%) (Auto) 0% (0-3) Basophils (%) (Auto) 0% (0-3) Neutrophils # (Auto) 6.2x10^3uL (1.8-7.7) Lymphocytes # (Auto) 0.7x10^3/uL (1.0-4.8) Monocytes # (Auto) 1.4x10^3/uL (0.0-1.1) Eosinophils # (Auto) 0.0x10^3/uL (0.0-0.7) Basophils # (Auto) 0.0x10^3/uL (0.0-0.2) Segmented Neutrophils % 80% (35-66) Lymphocytes % 8% (24-48) Monocytes % 10% (0-10) Metamyelocytes % 1% (0-0) Blast Cells % (Manual) 1% (0-0) Platelet Estimate Decreased (ADEQUATE) Anisocytosis Slight Ovalocytes Few [place] Cells Few O2 Saturation 96% (92-99) Arterial Blood pH 7.46 (7.35-7.45) Arterial Blood pCO2 at Patient Temp 19mmHg (35-46) Arterial Blood pO2 at Patient Temp 84mmHg (65-108) Arterial Blood HCO3 13mmol/L (21-28) Arterial Blood Base Excess -9mmol/L (-3-3) FiO2 5 lpm cpap Laboratory Tests Test 10/26/16 15:10 10/27/16 03:30 10/27/16 08:25 Sodium Level 129mmol/L (136-145) Potassium Level 4.4mmol/L (3.5-5.1) Chloride Level 97mmol/L (98-107) Carbon Dioxide Level 18mmol/L (21-32) Anion Gap 14 (6-14) Blood Urea Nitrogen 80mg/dL (8-26) Creatinine 3.3mg/dL (0.7-1.3) Estimated GFR (Cockcroft-Gault) 18.5 BUN/Creatinine Ratio 24 (6-20) Glucose Level 168mg/dL (70-99) Calcium Level 7.6mg/dL (8.5-10.1) Magnesium Level 2.4mg/dL (1.8-2.4) Total Bilirubin 0.5mg/dL (0.2-1.0) Aspartate Amino Transf (AST/SGOT) 62U/L (15-37) Alanine Aminotransferase (ALT/SGPT) 47U/L (16-63) Alkaline Phosphatase 40U/L (46-116) Creatine Kinase 220U/L (39-308) Creatine Kinase MB (Mass) 1.0ng/mL (0.0-3.6) Creatine Kinase MB Relative Index 0.5% (0-4) Troponin I Quantitative 0.051ng/mL (0.000-0.055) OX-Wkt-Z-Type Natriuretic Peptide 7777pg/mL (0-124) Total Protein 6.1g/dL (6.4-8.2) Albumin 3.0g/dL (3.4-5.0) Albumin/Globulin Ratio 1.0 (1.0-1.7) Triglycerides Level 184mg/dL (0-150) Cholesterol Level 109mg/dL (0-200) LDL Cholesterol, Calculated 58mg/dL (0-100) VLDL Cholesterol, Calculated 37mg/dL (0-40) Non-HDL Cholesterol Calculated 95mg/dL (0-129) HDL Cholesterol 14mg/dL (40-60) Cholesterol/HDL Ratio 7.8 White Blood Count 8.3x10^3/uL (4.0-11.0) Red Blood Count 3.64x10^6/uL (4.30-5.70) Hemoglobin 9.4g/dL (13.0-17.5) Hematocrit 29.6% (39.0-53.0) Mean Corpuscular Volume 81fL (79-100) Mean Corpuscular Hemoglobin 26pg (25-35) Mean Corpuscular Hemoglobin Concent 32g/dL (31-37) Red Cell Distribution Width 19.0% (11.5-14.5) Platelet Count 110x10^3/uL (140-400) Neutrophils (%) (Auto) 75% (31-73) Lymphocytes (%) (Auto) 9% (24-48) Monocytes (%) (Auto) 16% (0-9) Eosinophils (%) (Auto) 0% (0-3) Basophils (%) (Auto) 0% (0-3) Neutrophils # (Auto) 6.2x10^3uL (1.8-7.7) Lymphocytes # (Auto) 0.7x10^3/uL (1.0-4.8) Monocytes # (Auto) 1.4x10^3/uL (0.0-1.1) Eosinophils # (Auto) 0.0x10^3/uL (0.0-0.7) Basophils # (Auto) 0.0x10^3/uL (0.0-0.2) Segmented Neutrophils % 80% (35-66) Lymphocytes % 8% (24-48) Monocytes % 10% (0-10) Metamyelocytes % 1% (0-0) Blast Cells % (Manual) 1% (0-0) Platelet Estimate Decreased (ADEQUATE) Anisocytosis Slight Ovalocytes Few [place] Cells Few O2 Saturation 96% (92-99) Arterial Blood pH 7.46 (7.35-7.45) Arterial Blood pCO2 at Patient Temp 19mmHg (35-46) Arterial Blood pO2 at Patient Temp 84mmHg (65-108) Arterial Blood HCO3 13mmol/L (21-28) Arterial Blood Base Excess -9mmol/L (-3-3) FiO2 5 lpm cpap Medications Active Scripts Medications Dose Route/Sig Days Date Category Tamsulosin Hcl 0.4 Mg Cap.er.24h 0.4 Mg PO QHS 10/27/16 Reported Onglyza (Saxagliptin Hcl) 5 Mg Tablet 1 Tab PO DAILY 10/27/16 Reported Crestor (Rosuvastatin Calcium) 10 Mg Tablet 0.5 Tab PO DAILY 10/27/16 Reported Potassium Chloride 20 Meq Tablet.er 10 Meq PO DAILY 10/27/16 Reported Omeprazole 20 Mg Tablet.dr 1 Tab PO BID 10/27/16 Reported Nitrostat (Nitroglycerin) 0.3 Mg Tab.subl 0.3 Mg SL PRN Q5MIN PRN 10/27/16 Reported Methocarbamol 500 Mg Tablet 500 Mg PO PRN TID PRN 10/27/16 Reported [place] Ultra Strength (Menthol) 1 Each Adh..patch 1 Each TP TID 10/27/16 Reported Lisinopril 40 Mg Tablet 1 Tab PO DAILY 10/27/16 Reported Levothyroxine Sodium 125 Mcg Tablet 1 Tab PO DAILY 10/27/16 Reported Novolog Flexpen (Insulin Aspart) 100 Unit/1 Ml Insuln.pen 11 Unit SQ TIDWMEALS 10/27/16 Reported Gabapentin 300 Mg Capsule 300 Mg PO TID 10/27/16 Reported Furosemide 40 Mg Tablet 40 Mg PO BID 10/27/16 Reported Ferrous Sulfate 324 Mg Tablet. 324 Mg PO BID 10/27/16 Reported Cardizem Cd (Diltiazem Hcl) 300 Mg Cap.er.24h 300 Mg PO DAILY 10/27/16 Reported Vitamin D3 (Cholecalciferol (Vitamin D3)) 1,000 Unit Tablet 1 Tab PO DAILY 10/27/16 Reported Refresh Optive Advanced Drops (Carboxymethyl/Glycerin/Poly80) 10 Ml Drops 1 Drop OP PRN QID PRN 10/27/16 Reported Alphagan P (Brimonidine Tartrate) 5 Ml Drops 1 Drop EACHEYE BID 10/27/16 Reported Aspirin 325 Mg Tablet 1 Tab PO DAILY 10/27/16 Reported Albuterol Sulfate Conc Neb Soln (Albuterol Sulfate) 2.5 Mg/0.5 Ml Vial.neb 1 Vial NEB Q4HRS 10/27/16 Reported Combivent Respimat Inhal (Ipratropium/Albuterol Sulfate) 4 Gm Aer.w.adap 1 Inh IH QID 10/27/16 Reported Impression . FULL NOTE DICTATED SEE ORDERS JANEE MAYBERRY MD Oct 27, 2016 13:24
--- NOTE | 2016-10-27 13:26 | RAD ---
Abdominal ultrasound - limited to the kidneys Indication: Acute renal insufficiency. Comparison: None. Procedure: Transabdominal ultrasound images are obtained of the kidneys and bladder. Findings: Left kidney measures 11.3 cm in length. Left kidney is without obstruction or stone. Parenchymal echogenicity appears appropriate. Right kidney measures 11.6 cm in length. Right kidney is without evidence of obstruction or stone. Parenchymal echogenicity appears appropriate. Toro catheter is present in the urinary bladder. Urinary bladder wall is not well evaluated as urinary bladder is collapsed. Impression: Unremarkable renal ultrasound.
[2016-10-27] MEDS ORDERED: MENTHOL TP SCH (14:00)
--- NOTE | 2016-10-27 15:52 | PDOC2 ---
CONSULT Date of Consult Date of Consult DATE: 10/27/16 TIME: 15:46 Reason for Consult Reason for Consult: CHF Referring Physician Referring Physician: Dr. Soto Identification/Chief Complaint Chief Complaint CHF Source Source: Chart review, Patient History of Present Illness Reason for Visit: Mr. Hanks is a 66 year old male who was transferred [facility] for CHF and GI bleed. He was transferred because of his CHF. At the [facility], the pt was complaining of chest pain and had an elevated troponin level. He became hypotensive on a nitro drip. Pt reports he is feeling a little better since arriving. His BP's have stabilized. Pt complains of SOB and has been on BiPAP most the day. 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) Drugs: None Current Problem List Problem List Problems Medical Problems: (1) CHF exacerbation Status: Acute Current Medications Current Medications Current Medications Pantoprazole Sodium 40 mg 40 mg DAILYAC IVP Last administered on 10/27/16 07: 47; Start 10/26/16 at 17:00 Dobutamine HCl/ Dextrose 250 ml @ 0 mls/hr CONT PRN IV SEE I/O RECORD Last administered on 10/27/16 08:15; Start 10/26/16 at 17:00 Furosemide (Lasix) 60 mg 1X ONCE IVP Last administered on 10/27/16 08:15; Start 10/27/16 at 08:30; Stop 10/27/16 at 08:31; Status DC Sodium Bicarbonate 50 meq Q2HR IV Last administered on 10/27/16 12:38; Start 10/27/16 at 10:00; Stop 10/27/16 at 12:01; Status DC Albuterol/ Ipratropium (Duoneb) 3 ml RTQID NEB Last administered on 10/27/16 15:37; Start 10/27/16 at 12:00 Heparin Sodium (Porcine) (Heparin Sodium) 10,000 unit STK-MED ONCE .ROUTE ; Start 10/27/16 at 10:01; Stop 10/27/16 at 10:02; Status DC Lidocaine/Sodium Bicarbonate 20 ml 20 ml STK-MED ONCE IJ ; Start 10/27/16 at 10: 01; Stop 10/27/16 at 10:02; Status DC Heparin Sodium/ Sodium Chloride 500 ml @ As Directed STK-MED ONCE .ROUTE ; Start 10/27/16 at 10:01; Stop 10/27/16 at 10:02; Status DC Lidocaine/Sodium Bicarbonate (Buffered Lidocaine 1%) 3 ml 1X ONCE IJ Last administered on 10/27/16 12:16; Start 10/27/16 at 10:15; Stop 10/27/16 at 10:16 ; Status DC Heparin Sodium/ Sodium Chloride 60 unit 1X ONCE IV Last administered on 12:14; Start 10/27/16 at 10:15; Stop 10/27/16 at 10:16; Status DC Heparin Sodium (Porcine) (Heparin Sodium) 2,500 unit 1X ONCE INT CAT Last administered on 10/27/16 12:16; Start 10/27/16 at 10:15; Stop 10/27/16 at 10:16 ; Status DC Aspirin (Krystian Aspirin) 325 mg DAILY PO Last administered on 10/27/16 13:22; Start 10/27/16 at 12:00 Vitamin D (Vitamin D3) 1,000 unit DAILY PO Last administered on 10/27/16 13:21 ; Start 10/27/16 at 12:00 Diltiazem HCl (Cardizem Cd) 300 mg DAILY PO Last administered on 10/27/16 13: 21; Start 10/27/16 at 12:00 Furosemide (Lasix) 40 mg BID94 PO ; Start 10/27/16 at 12:00 Insulin Aspart (Novolog) 11 units TIDWMEALS SQ ; Start 10/27/16 at 12:00 Levothyroxine Sodium (Synthroid) 125 mcg DAILY07 PO Last administered on 13:22; Start 10/27/16 at 12:00 Lisinopril (Prinivil) 40 mg DAILY PO Last administered on 10/27/16 13:22; Start 10/27/16 at 12:00 Methocarbamol (Robaxin) 500 mg PRN TID PRN PO MUSCLE SPASMS; Start 10/27/16 at 11:15 Tamsulosin HCl (Flomax) 0.4 mg QHS PO ; Start 10/27/16 at 21:00 Albuterol Sulfate (Ventolin Neb Soln) 2.5 mg PRN Q4HRS PRN NEB SHORTNESS OF BREATH; Start 10/27/16 at 11:30 Brimonidine Tartrate (Alphagan) 1 drop BID OU Last administered on 10/27/16 13 :22; Start 10/27/16 at 12:00 Artificial Tears (Artificial Tears) 1 drop PRN Q15MIN PRN OU DRY EYE; Start at 11:30 Ferrous Sulfate (Feosol) 325 mg BIDWMEALS PO Last administered on 10/27/16 13: 21; Start 10/27/16 at 12:00 Gabapentin (Neurontin) 300 mg BID PO Last administered on 10/27/16 13:22; Start 10/27/16 at 12:00 Non-Formulary Medication 1 inh QID IH ; Start 10/27/16 at 13:00; Status UNV Non-Formulary Medication 1 each TID TP ; Start 10/27/16 at 14:00; Status UNV Non-Formulary Medication 1 tab BID PO ; Start 10/27/16 at 21:00; Status UNV Potassium Chloride (Klor-Con) 10 meq DAILYWBKFT PO ; Start 10/28/16 at 08:00 Atorvastatin Calcium (Lipitor) 20 mg QHS PO ; Start 10/27/16 at 21:00 Linagliptin (Tradjenta) 5 mg DAILY PO Last administered on 10/27/16 13:21; Start 10/27/16 at 12:00 Active Scripts Active Reported Tamsulosin Hcl 0.4 Mg Cap.er.24h 0.4 Mg PO QHS Onglyza (Saxagliptin Hcl) 5 Mg Tablet 1 Tab PO DAILY Crestor (Rosuvastatin Calcium) 10 Mg Tablet 0.5 Tab PO DAILY Potassium Chloride 20 Meq Tablet.er 10 Meq PO DAILY Omeprazole 20 Mg Tablet.dr 1 Tab PO BID Nitrostat (Nitroglycerin) 0.3 Mg Tab.subl 0.3 Mg SL PRN Q5MIN PRN Methocarbamol 500 Mg Tablet 500 Mg PO PRN TID PRN [place] Ultra Strength (Menthol) 1 Each Adh..patch 1 Each TP TID Lisinopril 40 Mg Tablet 1 Tab PO DAILY Levothyroxine Sodium 125 Mcg Tablet 1 Tab PO DAILY Novolog Flexpen (Insulin Aspart) 100 Unit/1 Ml Insuln.pen 11 Unit SQ TIDWMEALS Gabapentin 300 Mg Capsule 300 Mg PO TID Furosemide 40 Mg Tablet 40 Mg PO BID Ferrous Sulfate 324 Mg Tablet.dr 324 Mg PO BID Cardizem Cd (Diltiazem Hcl) 300 Mg Cap.er.24h 300 Mg PO DAILY Vitamin D3 (Cholecalciferol (Vitamin D3)) 1,000 Unit Tablet 1 Tab PO DAILY Refresh Optive Advanced Drops (Carboxymethyl/Glycerin/Poly80) 10 Ml Drops 1 Drop OP PRN QID PRN Alphagan P (Brimonidine Tartrate) 5 Ml Drops 1 Drop EACHEYE BID Aspirin 325 Mg Tablet 1 Tab PO DAILY Albuterol Sulfate Conc Neb Soln (Albuterol Sulfate) 2.5 Mg/0.5 Ml Vial.neb 1 Vial NEB Q4HRS Combivent Respimat Inhal (Ipratropium/Albuterol Sulfate) 4 Gm Aer.w.adap 1 Inh IH QID Allergies Allergies: Coded Allergies: Ibatshr-Uix-Uwj Reductase Inhibitor (Verified Allergy, Intermediate, ) bupropion (Verified Allergy, Intermediate, 10/26/16) colestipol (Verified Allergy, Intermediate, 10/27/16) dabigatran etexilate (Verified Allergy, Intermediate, 10/27/16) isosorbide (Verified Allergy, Intermediate, 10/26/16) lovastatin (Verified Allergy, Intermediate, 10/27/16) metformin (Verified Allergy, Intermediate, 10/26/16) mupirocin (Verified Allergy, Intermediate, 10/26/16) niacin (Verified Allergy, Intermediate, 10/27/16) pravastatin (Verified Allergy, Intermediate, 10/27/16) rosuvastatin (Verified Allergy, Intermediate, 10/27/16) simvastatin (Verified Allergy, Intermediate, 10/27/16) terazosin (Verified Allergy, Intermediate, 10/26/16) ROS General: No: Appetite, Chills, Fatigue, Malaise, Night Sweats, Other Respiratory: YES: Shortness of breath, No: Cough, Hemoptysis, Orthopnea, Other, Pleuritic Pain, SOB with excertion, Sputum Changes, Stridor, Tachypnea, Wheezing Cardiovascular: yes Chest Pain Gastrointestinal: No Abdominal Pain, No Constipation, No Diarrhea, No Hematochezia, No Melena, No Nausea, No Other, No Vomiting Genitourinary: No , No , No , No , No , No , No , No Discharge, No Dysuria, No Flank Pain, No Frequency, No Hematuria, No Incontinence, No Other, No Pain, No Retention, No Urgency Neurological: No Behavorial Changes, No Bowel/Bladder ControlChng, No Confusion , No Dizziness, No Gait Disturbance, No Headaches, No Impaired Coord/balance, No Memory Loss, No Numbness/Tingling, No Other, No Seizures, No Speech Problems , No Tremors, No Visual Changes, No Weakness Physical Exam General: Alert, Cooperative HEENT: Atraumatic, PERRLA Lungs: Other (Crackles heard throughout) Heart: Normal S1, Normal S2, Other (soft S3 ) Abdomen: Normal bowel sounds, Soft, No tenderness Extremities: Other (+1 edema) Vitals VITALS Vital Signs Date Time Temp Pulse Resp B/P Pulse Ox O2 Delivery O2 Flow Rate FiO2 10/27/16 15:43 Nasal Cannula 3.5 10/27/16 15:43 99 10/27/16 15:00 66 25 82/39 10/27/16 10:35 98.8 98.8 Labs Labs Laboratory Tests Test 10/26/16 15:10 10/27/16 03:30 10/27/16 08:25 10/27/16 13:24 Sodium Level 129mmol/L (136-145) Potassium Level 4.4mmol/L (3.5-5.1) Chloride Level 97mmol/L (98-107) Carbon Dioxide Level 18mmol/L (21-32) Anion Gap 14 (6-14) Blood Urea Nitrogen 80mg/dL (8-26) Creatinine 3.3mg/dL (0.7-1.3) Estimated GFR (Cockcroft-Gault) 18.5 BUN/Creatinine Ratio 24 (6-20) Glucose Level 168mg/dL (70-99) Calcium Level 7.6mg/dL (8.5-10.1) Magnesium Level 2.4mg/dL (1.8-2.4) Total Bilirubin 0.5mg/dL (0.2-1.0) Aspartate Amino Transf (AST/SGOT) 62U/L (15-37) Alanine Aminotransferase (ALT/SGPT) 47U/L (16-63) Alkaline Phosphatase 40U/L (46-116) Creatine Kinase 220U/L (39-308) Creatine Kinase MB (Mass) 1.0ng/mL (0.0-3.6) Creatine Kinase MB Relative Index 0.5% (0-4) Troponin I Quantitative 0.051ng/mL (0.000-0.055) KR-Omj-V-Type Natriuretic Peptide 7777pg/mL (0-124) Total Protein 6.1g/dL (6.4-8.2) Albumin 3.0g/dL (3.4-5.0) Albumin/Globulin Ratio 1.0 (1.0-1.7) Triglycerides Level 184mg/dL (0-150) Cholesterol Level 109mg/dL (0-200) LDL Cholesterol, Calculated 58mg/dL (0-100) VLDL Cholesterol, Calculated 37mg/dL (0-40) Non-HDL Cholesterol Calculated 95mg/dL (0-129) HDL Cholesterol 14mg/dL (40-60) Cholesterol/HDL Ratio 7.8 White Blood Count 8.3x10^3/uL (4.0-11.0) Red Blood Count 3.64x10^6/uL (4.30-5.70) Hemoglobin 9.4g/dL (13.0-17.5) Hematocrit 29.6% (39.0-53.0) Mean Corpuscular Volume 81fL (79-100) Mean Corpuscular Hemoglobin 26pg (25-35) Mean Corpuscular Hemoglobin Concent 32g/dL (31-37) Red Cell Distribution Width 19.0% (11.5-14.5) Platelet Count 110x10^3/uL (140-400) Neutrophils (%) (Auto) 75% (31-73) Lymphocytes (%) (Auto) 9% (24-48) Monocytes (%) (Auto) 16% (0-9) Eosinophils (%) (Auto) 0% (0-3) Basophils (%) (Auto) 0% (0-3) Neutrophils # (Auto) 6.2x10^3uL (1.8-7.7) Lymphocytes # (Auto) 0.7x10^3/uL (1.0-4.8) Monocytes # (Auto) 1.4x10^3/uL (0.0-1.1) Eosinophils # (Auto) 0.0x10^3/uL (0.0-0.7) Basophils # (Auto) 0.0x10^3/uL (0.0-0.2) Segmented Neutrophils % 80% (35-66) Lymphocytes % 8% (24-48) Monocytes % 10% (0-10) Metamyelocytes % 1% (0-0) Blast Cells % (Manual) 1% (0-0) Platelet Estimate Decreased (ADEQUATE) Anisocytosis Slight Ovalocytes Few [place] Cells Few O2 Saturation 96% (92-99) Arterial Blood pH 7.46 (7.35-7.45) Arterial Blood pCO2 at Patient Temp 19mmHg (35-46) Arterial Blood pO2 at Patient Temp 84mmHg (65-108) Arterial Blood HCO3 13mmol/L (21-28) Arterial Blood Base Excess -9mmol/L (-3-3) FiO2 5 lpm cpap Glucose (Fingerstick) 134mg/dL (70-99) Laboratory Tests Test 10/27/16 03:30 10/27/16 08:25 10/27/16 13:24 White Blood Count 8.3x10^3/uL (4.0-11.0) Red Blood Count 3.64x10^6/uL (4.30-5.70) Hemoglobin 9.4g/dL (13.0-17.5) Hematocrit 29.6% (39.0-53.0) Mean Corpuscular Volume 81fL (79-100) Mean Corpuscular Hemoglobin 26pg (25-35) Mean Corpuscular Hemoglobin Concent 32g/dL (31-37) Red Cell Distribution Width 19.0% (11.5-14.5) Platelet Count 110x10^3/uL (140-400) Neutrophils (%) (Auto) 75% (31-73) Lymphocytes (%) (Auto) 9% (24-48) Monocytes (%) (Auto) 16% (0-9) Eosinophils (%) (Auto) 0% (0-3) Basophils (%) (Auto) 0% (0-3) Neutrophils # (Auto) 6.2x10^3uL (1.8-7.7) Lymphocytes # (Auto) 0.7x10^3/uL (1.0-4.8) Monocytes # (Auto) 1.4x10^3/uL (0.0-1.1) Eosinophils # (Auto) 0.0x10^3/uL (0.0-0.7) Basophils # (Auto) 0.0x10^3/uL (0.0-0.2) Segmented Neutrophils % 80% (35-66) Lymphocytes % 8% (24-48) Monocytes % 10% (0-10) Metamyelocytes % 1% (0-0) Blast Cells % (Manual) 1% (0-0) Platelet Estimate Decreased (ADEQUATE) Anisocytosis Slight Ovalocytes Few [place] Cells Few O2 Saturation 96% (92-99) Arterial Blood pH 7.46 (7.35-7.45) Arterial Blood pCO2 at Patient Temp 19mmHg (35-46) Arterial Blood pO2 at Patient Temp 84mmHg (65-108) Arterial Blood HCO3 13mmol/L (21-28) Arterial Blood Base Excess -9mmol/L (-3-3) FiO2 5 lpm cpap Glucose (Fingerstick) 134mg/dL (70-99) Assessment/Plan Assessment/Plan A/P: - Acute on chronic heart failure exacerbation - Formal echo performed this morning - Continue dobutamine drip - Received 60 mg IV lasix instead of his daily 40 for increase in work of breathing will continue to monitor while in the hospital At some point he will need a R & L Heart Cath but he needs to be in better condition. No chest pains at this time. Thank you for your consultation and allowing me to participate in the care of this patient! WENDIE ANGEL MD Oct 27, 2016 15:52
[2016-10-27 16:00] LABS: BILIRUBIN,URINE NEGATIVE (NEG); GLUCOSE,URINE NEGATIVE (NEG); NITRITE,URINE NEGATIVE (NEG); PH,URINE 5.5; PROTEIN,URINE 30 mg/dL (NEG-TRACE); UROBILINOGEN,URINE 0.2 mg/dL (0.2 mg/dL)
[2016-10-27 16:16] LABS: BACTERIA,URINE 0 /HPF (0-FEW); RBC,URINE 20-40 /HPF (0-2); WBC,URINE 0 /HPF (0-4)
--- NOTE | 2016-10-27 17:34 | CARD ---
APPROVED REPORT EXAM: Two-dimensional and M-mode echocardiogram with Doppler and color Doppler. Other Information Quality : GoodHR: 58bpm Rhythm : Arrhythmia INDICATION Congestive Heart Failure 2D DIMENSIONS RVDd2.9 (2.9-3.5cm)Left Atrium(2D)5.5 (1.6-4.0cm) IVSd1.0 (0.7-1.1cm)Aortic Root(2D)3.9 (2.0-3.7cm) LVDd4.5 (3.9-5.9cm)LVOT Diameter2.3 (1.8-2.4cm) PWd1.0 (0.7-1.1cm)LVDs2.6 (2.5-4.0cm) FS (%) 42.9 %SV69.3 ml Aortic Valve AoV Peak Christophe.250.0cm/sAoV VTI37.0cm AO Peak GR.25.0mmHgLVOT Peak Christophe.129.3cm/s AO Mean GR.14mmHgAVA (VMAX)2.07cm2 Mitral Valve MV E Peak Gr.8mmHgMV E Mean Gr.2mmHg Pulmonary Valve PV Peak Brxzahfn160.6cm/s Tricuspid Valve TR P. [id number] Peak Gr.54mmHg LEFT VENTRICLE The left ventricle is mildly dilated There is normal left ventricular wall thickness. The left ventri cular systolic function is markedly increased from the echo done yesterday before the dobutamine drip was started, it was 25% yesterday and over 50% today after 24 hrs of the drip There is normal LV seg mental wall motion. Arrhythmia noted, unable to assess left ventricular diastolic function. RIGHT VENTRICLE The right ventricle is normal size. There is normal right ventricular wall thickness. The right ventr icular systolic function is normal. ATRIA The left atrium is severely dilated. The right atrium size is normal. The interatrial septum is intac t with no evidence for an atrial septal defect or patent foramen ovale as noted on 2-D or Doppler nandini ging. AORTIC VALVE The aortic valve is not well visualized. The aortic valve is mildly sclerotic. Doppler and Color Flow revealed no significant aortic regurgitation. There is no significant aortic valvular stenosis. MITRAL VALVE Mitral annular calcification is mild. The mitral valve leaflets are thickened. There is no evidence o f mitral valve prolapse. There is no mitral valve stenosis. Doppler and Color Flow revealed mild mitr al regurgitation. TRICUSPID VALVE Doppler and Color Flow revealed moderate tricuspid regurgitation. The pulmonary artery systolic press ure is estimated at 62 mmHg. There is severe pulmonary hypertension. PULMONIC VALVE The pulmonary valve was obscured, unable to assess. GREAT VESSELS The aortic root is normal in size. The ascending aorta is normal in size. The IVC is normal in size a nd collapses >50% with inspiration. PERICARDIAL EFFUSION There is no evidence of significant pericardial effusion. Critical Notification Critical Value: No <Conclusion> The left ventricle is mildly dilated Arrhythmia noted, unable to assess left ventricular diastolic function. The left atrium is severely dilated. The right atrium size is normal. The aortic valve is not well visualized. The aortic valve is mildly sclerotic. Doppler and Color Flow revealed mild mitral regurgitation. Doppler and Color Flow revealed moderate tricuspid regurgitation. The pulmonary artery systolic pressure is estimated at 62 mmHg. There is severe pulmonary hypertension. The pulmonary valve was obscured, unable to assess. There is no evidence of significant pericardial effusion. The left ventricular systolic function is markedly increased from the echo done yesterday before the dobutamine drip was started, it was 25% yesterday and over 50% today after 24 hrs of the drip
[2016-10-27] MEDS: ATORVASTATIN CALCIUM 20 MG TABLET PO SCH (20:58)
[2016-10-27] MEDS: TAMSULOSIN 0.4 MG CAP.ER.24H. PO SCH (20:58)
[2016-10-27] MEDS ORDERED: NON FORMULARY ITEM (Omeprazole 1 TAB) PO SCH (21:00)
--- NOTE | 2016-10-27 22:55 | PDOC ---
PROGRESS NOTES Chief Complaint Chief Complaint GI bleed Critical Hypotention CHF PPM CABG Diabetes, Hypertension, Hyperlipidemia. Debility History of Present Illness History of Present Illness Pt on face mask O2. Pleasantly confused. Very weak DW RN Pt has a large BM while I was there. Appears dark and liquid. Smells of Iron. Over all he is extremely ill. . Vitals Vitals Vital Signs Date Time Temp Pulse Resp B/P Pulse Ox O2 Delivery O2 Flow Rate FiO2 10/27/16 22:00 60 22 125/76 100 Nasal Cannula 3.5 10/27/16 20:00 100.2 100.2 Physical Exam General: Other (Extremely ill, weak) Heart: Normal S1, Normal S2, Other (soft S3 ) Lungs: Crackles Abdomen: Normal bowel sounds, Soft, No tenderness Extremities: Other (+1 edema) Skin: No rashes, Other (thin , frail) Labs LABS Laboratory Tests Test 10/27/16 03:30 10/27/16 08:25 10/27/16 13:24 10/27/16 15:00 White Blood Count 8.3x10^3/uL (4.0-11.0) Red Blood Count 3.64x10^6/uL (4.30-5.70) Hemoglobin 9.4g/dL (13.0-17.5) Hematocrit 29.6% (39.0-53.0) Mean Corpuscular Volume 81fL (79-100) Mean Corpuscular Hemoglobin 26pg (25-35) Mean Corpuscular Hemoglobin Concent 32g/dL (31-37) Red Cell Distribution Width 19.0% (11.5-14.5) Platelet Count 110x10^3/uL (140-400) Neutrophils (%) (Auto) 75% (31-73) Lymphocytes (%) (Auto) 9% (24-48) Monocytes (%) (Auto) 16% (0-9) Eosinophils (%) (Auto) 0% (0-3) Basophils (%) (Auto) 0% (0-3) Neutrophils # (Auto) 6.2x10^3uL (1.8-7.7) Lymphocytes # (Auto) 0.7x10^3/uL (1.0-4.8) Monocytes # (Auto) 1.4x10^3/uL (0.0-1.1) Eosinophils # (Auto) 0.0x10^3/uL (0.0-0.7) Basophils # (Auto) 0.0x10^3/uL (0.0-0.2) Segmented Neutrophils % 80% (35-66) Lymphocytes % 8% (24-48) Monocytes % 10% (0-10) Metamyelocytes % 1% (0-0) Blast Cells % (Manual) 1% (0-0) Platelet Estimate Decreased (ADEQUATE) Anisocytosis Slight Ovalocytes Few [place] Cells Few O2 Saturation 96% (92-99) Arterial Blood pH 7.46 (7.35-7.45) Arterial Blood pCO2 at Patient Temp 19mmHg (35-46) Arterial Blood pO2 at Patient Temp 84mmHg (65-108) Arterial Blood HCO3 13mmol/L (21-28) Arterial Blood Base Excess -9mmol/L (-3-3) FiO2 5 lpm cpap Glucose (Fingerstick) 134mg/dL (70-99) Urine Collection Type Unknown Urine Color Yellow Urine Clarity Turbid Urine pH 5.5 Urine Specific [place] 1.015 Urine Protein 30mg/dL (NEG-TRACE) Urine Glucose (UA) Negativemg/dL (NEG) Urine Ketones (Stick) Negativemg/dL (NEG) Urine Blood Large (NEG) Urine Nitrite Negative (NEG) Urine Bilirubin Negative (NEG) Urine Urobilinogen Dipstick 0.2mg/dL (0.2 mg/dL) Urine Leukocyte Esterase Trace (NEG) Urine RBC 20-40/HPF (0-2) Urine WBC 0/HPF (0-4) Urine Amorphous Sediment Present/HPF Urine Bacteria 0/HPF (0-FEW) Urine Hyaline Casts Many/HPF Urine Granular Casts Moderate/HPF Urine Mucus Marked/LPF Test 10/27/16 17:01 Glucose (Fingerstick) 162mg/dL (70-99) Review of Systems Review of Systems Unobtainable Assessment and Plan Assessmemt and Plan Problems Medical Problems: (1) CHF exacerbation Status: Acute Severe GI bleed Critical Hypotention CHF PPM CABG Diabetes, Hypertension, Hyperlipidemia. Debility Plan ICU monitoring Follow HgB closely Transfuse O2 to keep sat >90% Home meds GI and Cards and Pulm following Prognosis poor ferry terminal agent Total time 32 minutes Problems: Comment Review of Relevant I have reviewed the following items dorian (where applicable) has been applied. Labs Laboratory Tests Test 10/26/16 15:10 10/26/16 17:30 10/27/16 03:30 10/27/16 08:25 Sodium Level 129mmol/L (136-145) Potassium Level 4.4mmol/L (3.5-5.1) Chloride Level 97mmol/L (98-107) Carbon Dioxide Level 18mmol/L (21-32) Anion Gap 14 (6-14) Blood Urea Nitrogen 80mg/dL (8-26) Creatinine 3.3mg/dL (0.7-1.3) Estimated GFR (Cockcroft-Gault) 18.5 BUN/Creatinine Ratio 24 (6-20) Glucose Level 168mg/dL (70-99) Calcium Level 7.6mg/dL (8.5-10.1) Magnesium Level 2.4mg/dL (1.8-2.4) Total Bilirubin 0.5mg/dL (0.2-1.0) Aspartate Amino Transf (AST/SGOT) 62U/L (15-37) Alanine Aminotransferase (ALT/SGPT) 47U/L (16-63) Alkaline Phosphatase 40U/L (46-116) Creatine Kinase 220U/L (39-308) Creatine Kinase MB (Mass) 1.0ng/mL (0.0-3.6) Creatine Kinase MB Relative Index 0.5% (0-4) Troponin I Quantitative 0.051ng/mL (0.000-0.055) LQ-Qxr-X-Type Natriuretic Peptide 7777pg/mL (0-124) Total Protein 6.1g/dL (6.4-8.2) Albumin 3.0g/dL (3.4-5.0) Albumin/Globulin Ratio 1.0 (1.0-1.7) Triglycerides Level 184mg/dL (0-150) Cholesterol Level 109mg/dL (0-200) LDL Cholesterol, Calculated 58mg/dL (0-100) VLDL Cholesterol, Calculated 37mg/dL (0-40) Non-HDL Cholesterol Calculated 95mg/dL (0-129) HDL Cholesterol 14mg/dL (40-60) Cholesterol/HDL Ratio 7.8 Nasal Screen MRSA (PCR) Negative (Negative) White Blood Count 8.3x10^3/uL (4.0-11.0) Red Blood Count 3.64x10^6/uL (4.30-5.70) Hemoglobin 9.4g/dL (13.0-17.5) Hematocrit 29.6% (39.0-53.0) Mean Corpuscular Volume 81fL (79-100) Mean Corpuscular Hemoglobin 26pg (25-35) Mean Corpuscular Hemoglobin Concent 32g/dL (31-37) Red Cell Distribution Width 19.0% (11.5-14.5) Platelet Count 110x10^3/uL (140-400) Neutrophils (%) (Auto) 75% (31-73) Lymphocytes (%) (Auto) 9% (24-48) Monocytes (%) (Auto) 16% (0-9) Eosinophils (%) (Auto) 0% (0-3) Basophils (%) (Auto) 0% (0-3) Neutrophils # (Auto) 6.2x10^3uL (1.8-7.7) Lymphocytes # (Auto) 0.7x10^3/uL (1.0-4.8) Monocytes # (Auto) 1.4x10^3/uL (0.0-1.1) Eosinophils # (Auto) 0.0x10^3/uL (0.0-0.7) Basophils # (Auto) 0.0x10^3/uL (0.0-0.2) Segmented Neutrophils % 80% (35-66) Lymphocytes % 8% (24-48) Monocytes % 10% (0-10) Metamyelocytes % 1% (0-0) Blast Cells % (Manual) 1% (0-0) Platelet Estimate Decreased (ADEQUATE) Anisocytosis Slight Ovalocytes Few [place] Cells Few O2 Saturation 96% (92-99) Arterial Blood pH 7.46 (7.35-7.45) Arterial Blood pCO2 at Patient Temp 19mmHg (35-46) Arterial Blood pO2 at Patient Temp 84mmHg (65-108) Arterial Blood HCO3 13mmol/L (21-28) Arterial Blood Base Excess -9mmol/L (-3-3) FiO2 5 lpm cpap Test 10/27/16 13:24 10/27/16 15:00 10/27/16 17:01 Glucose (Fingerstick) 134mg/dL (70-99) 162mg/dL (70-99) Urine Collection Type Unknown Urine Color Yellow Urine Clarity Turbid Urine pH 5.5 Urine Specific [place] 1.015 Urine Protein 30mg/dL (NEG-TRACE) Urine Glucose (UA) Negativemg/dL (NEG) Urine Ketones (Stick) Negativemg/dL (NEG) Urine Blood Large (NEG) Urine Nitrite Negative (NEG) Urine Bilirubin Negative (NEG) Urine Urobilinogen Dipstick 0.2mg/dL (0.2 mg/dL) Urine Leukocyte Esterase Trace (NEG) Urine RBC 20-40/HPF (0-2) Urine WBC 0/HPF (0-4) Urine Amorphous Sediment Present/HPF Urine Bacteria 0/HPF (0-FEW) Urine Hyaline Casts Many/HPF Urine Granular Casts Moderate/HPF Urine Mucus Marked/LPF Laboratory Tests Test 10/27/16 03:30 10/27/16 08:25 10/27/16 13:24 10/27/16 15:00 White Blood Count 8.3x10^3/uL (4.0-11.0) Red Blood Count 3.64x10^6/uL (4.30-5.70) Hemoglobin 9.4g/dL (13.0-17.5) Hematocrit 29.6% (39.0-53.0) Mean Corpuscular Volume 81fL (79-100) Mean Corpuscular Hemoglobin 26pg (25-35) Mean Corpuscular Hemoglobin Concent 32g/dL (31-37) Red Cell Distribution Width 19.0% (11.5-14.5) Platelet Count 110x10^3/uL (140-400) Neutrophils (%) (Auto) 75% (31-73) Lymphocytes (%) (Auto) 9% (24-48) Monocytes (%) (Auto) 16% (0-9) Eosinophils (%) (Auto) 0% (0-3) Basophils (%) (Auto) 0% (0-3) Neutrophils # (Auto) 6.2x10^3uL (1.8-7.7) Lymphocytes # (Auto) 0.7x10^3/uL (1.0-4.8) Monocytes # (Auto) 1.4x10^3/uL (0.0-1.1) Eosinophils # (Auto) 0.0x10^3/uL (0.0-0.7) Basophils # (Auto) 0.0x10^3/uL (0.0-0.2) Segmented Neutrophils % 80% (35-66) Lymphocytes % 8% (24-48) Monocytes % 10% (0-10) Metamyelocytes % 1% (0-0) Blast Cells % (Manual) 1% (0-0) Platelet Estimate Decreased (ADEQUATE) Anisocytosis Slight Ovalocytes Few [place] Cells Few O2 Saturation 96% (92-99) Arterial Blood pH 7.46 (7.35-7.45) Arterial Blood pCO2 at Patient Temp 19mmHg (35-46) Arterial Blood pO2 at Patient Temp 84mmHg (65-108) Arterial Blood HCO3 13mmol/L (21-28) Arterial Blood Base Excess -9mmol/L (-3-3) FiO2 5 lpm cpap Glucose (Fingerstick) 134mg/dL (70-99) Urine Collection Type Unknown Urine Color Yellow Urine Clarity Turbid Urine pH 5.5 Urine Specific [place] 1.015 Urine Protein 30mg/dL (NEG-TRACE) Urine Glucose (UA) Negativemg/dL (NEG) Urine Ketones (Stick) Negativemg/dL (NEG) Urine Blood Large (NEG) Urine Nitrite Negative (NEG) Urine Bilirubin Negative (NEG) Urine Urobilinogen Dipstick 0.2mg/dL (0.2 mg/dL) Urine Leukocyte Esterase Trace (NEG) Urine RBC 20-40/HPF (0-2) Urine WBC 0/HPF (0-4) Urine Amorphous Sediment Present/HPF Urine Bacteria 0/HPF (0-FEW) Urine Hyaline Casts Many/HPF Urine Granular Casts Moderate/HPF Urine Mucus Marked/LPF Test 10/27/16 17:01 Glucose (Fingerstick) 162mg/dL (70-99) Medications Current Medications Pantoprazole Sodium 40 mg 40 mg DAILYAC IVP Last administered on 10/27/16 07: 47; Start 10/26/16 at 17:00 Dobutamine HCl/ Dextrose 250 ml @ 0 mls/hr CONT PRN IV SEE I/O RECORD Last administered on 10/27/16 08:15; Start 10/26/16 at 17:00 Furosemide (Lasix) 60 mg 1X ONCE IVP Last administered on 10/27/16 08:15; Start 10/27/16 at 08:30; Stop 10/27/16 at 08:31; Status DC Sodium Bicarbonate 50 meq Q2HR IV Last administered on 10/27/16 12:38; Start 10/27/16 at 10:00; Stop 10/27/16 at 12:01; Status DC Albuterol/ Ipratropium (Duoneb) 3 ml RTQID NEB Last administered on 10/27/16 19:49; Start 10/27/16 at 12:00 Heparin Sodium (Porcine) (Heparin Sodium) 10,000 unit STK-MED ONCE .ROUTE ; Start 10/27/16 at 10:01; Stop 10/27/16 at 10:02; Status DC Lidocaine/Sodium Bicarbonate 20 ml 20 ml STK-MED ONCE IJ ; Start 10/27/16 at 10: 01; Stop 10/27/16 at 10:02; Status DC Heparin Sodium/ Sodium Chloride 500 ml @ As Directed STK-MED ONCE .ROUTE ; Start 10/27/16 at 10:01; Stop 10/27/16 at 10:02; Status DC Lidocaine/Sodium Bicarbonate (Buffered Lidocaine 1%) 3 ml 1X ONCE IJ Last administered on 10/27/16 12:16; Start 10/27/16 at 10:15; Stop 10/27/16 at 10:16 ; Status DC Heparin Sodium/ Sodium Chloride 60 unit 1X ONCE IV Last administered on 12:14; Start 10/27/16 at 10:15; Stop 10/27/16 at 10:16; Status DC Heparin Sodium (Porcine) (Heparin Sodium) 2,500 unit 1X ONCE INT CAT Last administered on 10/27/16 12:16; Start 10/27/16 at 10:15; Stop 10/27/16 at 10:16 ; Status DC Aspirin (Krystian Aspirin) 325 mg DAILY PO Last administered on 10/27/16 13:22; Start 10/27/16 at 12:00 Vitamin D (Vitamin D3) 1,000 unit DAILY PO Last administered on 10/27/16 13:21 ; Start 10/27/16 at 12:00 Diltiazem HCl (Cardizem Cd) 300 mg DAILY PO Last administered on 10/27/16 13: 21; Start 10/27/16 at 12:00 Furosemide (Lasix) 40 mg BID94 PO ; Start 10/27/16 at 12:00 Insulin Aspart (Novolog) 11 units TIDWMEALS SQ ; Start 10/27/16 at 12:00 Levothyroxine Sodium (Synthroid) 125 mcg DAILY07 PO Last administered on 13:22; Start 10/27/16 at 12:00 Lisinopril (Prinivil) 40 mg DAILY PO Last administered on 10/27/16 13:22; Start 10/27/16 at 12:00 Methocarbamol (Robaxin) 500 mg PRN TID PRN PO MUSCLE SPASMS; Start 10/27/16 at 11:15 Tamsulosin HCl (Flomax) 0.4 mg QHS PO Last administered on 10/27/16 20:58; Start 10/27/16 at 21:00 Albuterol Sulfate (Ventolin Neb Soln) 2.5 mg PRN Q4HRS PRN NEB SHORTNESS OF BREATH; Start 10/27/16 at 11:30 Brimonidine Tartrate (Alphagan) 1 drop BID OU Last administered on 10/27/16 20 :58; Start 10/27/16 at 12:00 Artificial Tears (Artificial Tears) 1 drop PRN Q15MIN PRN OU DRY EYE; Start at 11:30 Ferrous Sulfate (Feosol) 325 mg BIDWMEALS PO Last administered on 10/27/16 17: 01; Start 10/27/16 at 12:00 Gabapentin (Neurontin) 300 mg BID PO Last administered on 10/27/16 20:58; Start 10/27/16 at 12:00 Non-Formulary Medication 1 inh QID IH ; Start 10/27/16 at 13:00; Status UNV Non-Formulary Medication 1 each TID TP ; Start 10/27/16 at 14:00; Status UNV Non-Formulary Medication 1 tab BID PO ; Start 10/27/16 at 21:00; Status UNV Potassium Chloride (Klor-Con) 10 meq DAILYWBKFT PO ; Start 10/28/16 at 08:00 Atorvastatin Calcium (Lipitor) 20 mg QHS PO Last administered on 10/27/16 20: 58; Start 10/27/16 at 21:00 Linagliptin (Tradjenta) 5 mg DAILY PO Last administered on 10/27/16t 13:21; Start 10/27/16 at 12:00 Furosemide (Lasix) 60 mg 1X ONCE IVP ; Start 10/28/16 at 08:00; Stop 10/28/16 at 08:01 Active Scripts Active Reported Tamsulosin Hcl 0.4 Mg Cap.er.24h 0.4 Mg PO QHS Onglyza (Saxagliptin Hcl) 5 Mg Tablet 1 Tab PO DAILY Crestor (Rosuvastatin Calcium) 10 Mg Tablet 0.5 Tab PO DAILY Potassium Chloride 20 Meq Tablet.er 10 Meq PO DAILY Omeprazole 20 Mg Tablet.dr 1 Tab PO BID Nitrostat (Nitroglycerin) 0.3 Mg Tab.subl 0.3 Mg SL PRN Q5MIN PRN Methocarbamol 500 Mg Tablet 500 Mg PO PRN TID PRN [place] Ultra Strength (Menthol) 1 Each Adh..patch 1 Each TP TID Lisinopril 40 Mg Tablet 1 Tab PO DAILY Levothyroxine Sodium 125 Mcg Tablet 1 Tab PO DAILY Novolog Flexpen (Insulin Aspart) 100 Unit/1 Ml Insuln.pen 11 Unit SQ TIDWMEALS Gabapentin 300 Mg Capsule 300 Mg PO TID Furosemide 40 Mg Tablet 40 Mg PO BID Ferrous Sulfate 324 Mg Tablet.dr 324 Mg PO BID Cardizem Cd (Diltiazem Hcl) 300 Mg Cap.er.24h 300 Mg PO DAILY Vitamin D3 (Cholecalciferol (Vitamin D3)) 1,000 Unit Tablet 1 Tab PO DAILY Refresh Optive Advanced Drops (Carboxymethyl/Glycerin/Poly80) 10 Ml Drops 1 Drop OP PRN QID PRN Alphagan P (Brimonidine Tartrate) 5 Ml Drops 1 Drop EACHEYE BID Aspirin 325 Mg Tablet 1 Tab PO DAILY Albuterol Sulfate Conc Neb Soln (Albuterol Sulfate) 2.5 Mg/0.5 Ml Vial.neb 1 Vial NEB Q4HRS Combivent Respimat Inhal (Ipratropium/Albuterol Sulfate) 4 Gm Aer.w.adap 1 Inh IH QID Vitals/I & O Vital Sign - Last 24 Hours 10/26/16 10/27/16 10/27/16 10/27/16 23:00 00:00 00:00 01:00 Temp 97.7 97.7 Pulse 62 62 62 Resp 30 27 28 B/P 111/55 113/46 137/47 O2 Delivery BiPAP/CPAP Bi-pap BiPAP/CPAP BiPAP/CPAP 10/27/16 10/27/16 10/27/16 10/27/16 02:00 03:06 04:00 04:00 Temp 98.3 98.3 Pulse 63 63 63 Resp 37 30 B/P 142/51 136/59 153/56 O2 Delivery BiPAP/CPAP BiPAP/CPAP Bi-pap BiPAP/CPAP 10/27/16 10/27/16 10/27/16 10/27/16 05:00 06:00 07:25 08:20 Pulse 63 68 63 Resp B/P 149/60 125/50 135/62 Pulse Ox 93 O2 Delivery BiPAP/CPAP BiPAP/CPAP BiPAP/CPAP Bi-pap O2 Flow Rate 4.0 10/27/16 10/27/16 10/27/16 10/27/16 08:22 09:05 09:49 10:35 Temp 98.8 98.8 Pulse 63 67 67 Resp 33 31 B/P 125/42 136/45 132/50 Pulse Ox 100 93 89 O2 Delivery BiPAP/CPAP BiPAP/CPAP Nasal Cannula BiPAP/CPAP O2 Flow Rate 5.0 10/27/16 10/27/16 10/27/16 10/27/16 11:03 11:50 12:24 13:21 Pulse 67 67 68 Resp 29 B/P 140/50 126/47 126/47 Pulse Ox 92 89 O2 Delivery BiPAP/CPAP Bi-pap BiPAP/CPAP O2 Flow Rate 5.0 10/27/16 10/27/16 10/27/16 10/27/16 13:22 13:35 14:00 15:00 Pulse 67 67 66 66 Resp 30 25 B/P 126/47 135/52 107/35 82/39 Pulse Ox 93 93 99 O2 Delivery Nasal Cannula Nasal Cannula Nasal Cannula O2 Flow Rate 3.5 3.5 3.5 10/27/16 10/27/16 10/27/16 10/27/16 15:43 15:43 15:50 17:05 Temp 99.5 99.5 Pulse 67 67 Resp 22 B/P 93/35 102/44 Pulse Ox 99 99 98 O2 Delivery Nasal Cannula Nasal Cannula Nasal Cannula Nasal Cannula O2 Flow Rate 3.0 3.5 3.5 3.5 10/27/16 10/27/16 10/27/16 10/27/16 17:59 19:00 19:49 20:00 Pulse 60 60 Resp 22 B/P 103/41 89/35 Pulse Ox 98 100 100 O2 Delivery Nasal Cannula Nasal Cannula Nasal Cannula Nasal Cannula O2 Flow Rate 3.5 3.5 3.0 3.5 10/27/16 10/27/16 10/27/16 20:00 21:00 22:00 Temp 100.2 100.2 Pulse 60 60 60 Resp 20 22 B/P 85/33 90/36 125/76 Pulse Ox 100 100 100 O2 Delivery Nasal Cannula Nasal Cannula Nasal Cannula O2 Flow Rate 3.5 3.5 3.5 Intake and Output 10/26/16 10/26/16 10/27/16 15:00 23:00 07:00 Intake Total 599.2 ml 371 ml Output Total 375 ml 420 ml Balance 224.2 ml -49 ml ARGENIS BURT III DO Oct 27, 2016 22:55
[2016-10-28] VITALS (24 sets, daily range): BP systolic 90–147; BP diastolic 32–59
--- NOTE | 2016-10-28 00:13 | CONS ---
DATE OF CONSULTATION: PRIMARY PHYSICIAN: Dr. Soto. REASON FOR CONSULTATION: [id number] renal insufficiency. HISTORY OF PRESENT ILLNESS: The patient is a 71-year-old gentleman from the [place]. He was transferred to [facility] for further evaluation of possible GI bleed and ____ potentially needing heart catheterization. On my conversation with the patient, it appears that he was extremely short of breath and was unable to function due to that and presented to the ER. He was initially diagnosed with CHF exacerbation at the [place]. He has had mild increase in his troponins and did have some hypotension overnight also. He is currently not hypotensive. He is noted to have an EF of 25% when echo was done here. He was placed on dobutamine drip by Dr. Ceballos who was his regular signal circuit designer. He has also had a recent CABG and is known to have a history of atrial fibrillation with biventricular pacemaker placement. His baseline creatinine runs about 1.69 as of 10/12/2016. His creatinine was 2.9 at the [place] and is up to 3.3 this morning. Attempts of diuresis have been made. PAST MEDICAL HISTORY: Significant for dyslipidemia, hypertension, GERD, gallbladder stone, type 2 diabetes, hypothyroidism, bilateral pseudophakia, diabetic renal disease including CKD stage 3, if not mentioned previously, sleep apnea, lumbar radiculopathy, carpal tunnel syndrome, BPH, shoulder bursitis, amaurosis fugax, glaucoma, history of epistaxis in the past, secondary osteoarthritis, anemia of unknown etiology, obstructive sleep apnea, coronary artery disease status post CABG, atrial fibrillation, diastolic heart failure, systolic heart failure based on most recent EF, chronic atrial fibrillation and atherosclerotic heart disease, angina pectoris, chronic anticoagulation and BiV ____ ICD placement. FAMILY HISTORY: Negative for known kidney problems that the patient admits to at this time. SOCIAL HISTORY: Previous smoker, lives by himself. He is a [employer] vet. Denies drug use, no heavy alcohol use. For rest of details, see electronic records. AILIN MCBRIDE MD DR: MARANDA/pepper JOB#: [id number] / [id number]
--- NOTE | 2016-10-28 01:50 | CONS ---
DATE OF CONSULTATION: 10/27/2016 ATTENDING PHYSICIAN: Dr. Soto. REASON FOR CONSULTATION: The patient was seen in pulmonary consultation at the request of Dr. Soto for acute respiratory failure. HISTORY OF PRESENT ILLNESS: The patient is a 71-year-old that was transferred from the [facility]. He has been having periods of dyspnea, O2 saturations that are low. He normally wears CPAP at home with no oxygen supplementation. He is currently on CPAP. When he is taken off the CPAP, his O2 sats dropped into the 70s and 80s. The patient is somewhat of a poor historian. He had been short of breath for quite sometime. Some of his shortness of breath is acute. He does have a history of cardiomyopathy with low ejection fraction. He also has chronic renal insufficiency. He was transferred with initial arterial blood gas revealing pH of 7.46, PaCO2 of 19, pO2 of 84 on 5 liters with CPAP. His white count was normal. I reviewed his chest x-ray, there is no acute infiltrate. There is previous sternotomy, a right-sided pacemaker. PAST MEDICAL HISTORY: Coronary artery disease, status post coronary artery bypass grafting, previous permanent pacemaker implantation, cardiomyopathy, chronic renal insufficiency, diabetes, hypertension. PAST SURGICAL HISTORY: As above. ALLERGIES: No known drug allergies. FAMILY HISTORY: Hypertension. SOCIAL HISTORY: He is retired, , quit tobacco many years ago. Denies any alcohol intake. REVIEW OF SYSTEMS: As indicated above, otherwise, a 10-point system was reviewed and negative. CURRENT MEDICATIONS: List was reviewed. PHYSICAL EXAMINATION: GENERAL: On exam, the patient is currently in the intensive care unit. If he is taken off his CPAP, his saturations drop. HEENT: Eyes, the sclerae were nonicteric. NECK: Jugular venous distention was not elevated. No lymphadenopathy. CHEST: Full expansion. LUNGS: Poor airway flow with no wheezes. CARDIOVASCULAR: Regular rate and rhythm with S1, S2, no S3. ABDOMEN: Soft, nontender, nondistended. EXTREMITIES: No clubbing, cyanosis or edema. NEUROLOGIC: The patient was awake, alert, following commands. A detailed neuro exam was not performed. LABORATORY DATA: Reviewed as indicated above. Chest x-ray as indicated above. IMPRESSION: 1. Acute hypoxemic respiratory failure. 2. Acute on chronic kidney failure. 3. Chronic heart failure, possible acute systolic heart failure. 4. Cardiomyopathy. 5. Status post pacemaker. 6. Coronary artery disease, status post coronary artery bypass grafting. 7. Hypertension. 8. Obstructive sleep apnea. 9. Acute on chronic blood-loss anemia. 10. Metabolic acidosis, suspect secondary to renal tubular acidosis, chronic kidney disease. PLAN: 1. We will switch from CPAP to BiPAP with oxygen supplementation. 2. Venous Dopplers of the lower extremities. 3. Consult Cardiology, already performed. 4. No need for antibiotics. 5. Monitor hemoglobin and hematocrit. I do appreciate the privilege in sharing in the patient's care. Total cumulative critical care time of 40 minutes, case discussed with Dr. Soto. JANEE MAYBERRY MD DR: SHANTHI/pepper JOB#: [id number] / [id number]
[2016-10-28 05:52] LABS: BASO % 0 % (0-3); EOS % 0 % (0-3); HEMATOCRIT 26.1 % (39.0-53.0); HEMOGLOBIN 8.9 g/dL (13.0-17.5); LYMPH # 1.5 x10^3/uL (1.0-4.8); LYMPH % 22 % (24-48); MEAN CORPUSCULAR HEMOGLOBIN 27 pg (25-35); MEAN CORPUSCULAR HGB CONC 34 g/dL (31-37); MEAN CORPUSCULAR VOLUME 78 fL (79-100); MONO % 9 % (0-9); NEUT % 69 % (31-73); PLATELET COUNT 99 x10^3/uL (140-400); RED BLOOD COUNT 3.33 x10^6/uL (4.30-5.70); WHITE BLOOD COUNT 6.8 x10^3/uL (4.0-11.0)
[2016-10-28] MEDS: LEVOTHYROXINE 125 MCG TABLET PO SCH (06:25)
[2016-10-28] MEDS: INSULIN ASPART 300 UNITS/3 ML INSULN.PEN SQ SCH ×3 (08:00→17:00)
[2016-10-28] MEDS ORDERED: FUROSEMIDE 20 MG/2 ML VIAL. IVP ONE (08:00)
[2016-10-28] MEDS: LISINOPRIL 40 MG TABLET. PO SCH (09:00)
[2016-10-28] MEDS: IPRATRPIUM/ALBUTEROL 0.5/2.5MG 3 ML NEBU. NEB SCH ×4 (09:01→19:36)
[2016-10-28] MEDS: GABAPENTIN 300 MG CAPSULE. PO SCH ×2 (09:07→20:55)
[2016-10-28] MEDS: ASPIRIN 325 MG TABLET PO SCH (09:07)
[2016-10-28] MEDS: POTASSIUM CHLORIDE 10 MEQ TABLET.ER. PO SCH (09:07)
[2016-10-28] MEDS: PANTOPRAZOLE IV PUSH 40 MG VIAL. IVP SCH (09:07)
[2016-10-28] MEDS: FERROUS SULFATE 325 MG TABLET. PO SCH ×2 (09:08→17:13)
[2016-10-28] MEDS: CHOLECALCIFEROL (VITAMIN D3) 1,000 UNIT TABLET PO SCH (09:08)
[2016-10-28] MEDS: LINAGLIPTIN 5 MG TABLET PO SCH (09:08)
[2016-10-28] MEDS: BRIMONIDINE 0.2% OPHTH SOLUTION 5ML BOTTLE. OU SCH ×2 (09:09→20:55)
[2016-10-28] MEDS: FUROSEMIDE 40 MG TABLET. PO SCH ×2 (09:11→17:13)
--- NOTE | 2016-10-28 11:08 | RAD ---
Bedside ultrasound-guided left IJ temporary hemodialysis catheter insertion Indication: 71-year-old male with acute respiratory failure and with acute kidney injury on chronic kidney disease. Oliguria. Bedside ICU temporary dialysis catheter insertion has been requested by renal.. Anesthesia: Local only Sterility: All elements of maximal sterile barrier technique, including the use of a cap, mask, sterile gown, sterile gloves, large sterile sheet, appropriate hand hygiene, and 2% chlorhexidine for cutaneous antisepsis (or acceptable alternative antiseptic per current guidelines) were utilized. Procedure: Informed consent was obtained from the patient. This procedure was performed bedside in ICU. Preliminary ultrasound examination of left neck revealed wide patency of left internal jugular vein, which was documented with a single hard copy ultrasound image. Left neck was then prepped and draped in the usual sterile fashion, utilizing all elements of maximal sterile barrier technique, as described above. Using aseptic technique, local anesthesia, direct ultrasound guidance, and the micropuncture system, successful percutaneous entry was achieved into left internal jugular vein. The left IJ venostomy tract was then dilated and a 14 [place] 24 cm temporary hemodialysis catheter was easily advanced centrally over an angiographic guidewire. The catheter was documented to flush and aspirate normally, was packed, and was secured at the left neck exit site utilizing suture and sterile dressing. Patient tolerated the procedure well without apparent complication. A stat portable chest x-ray was requested for line position. Impression: Successful, uneventful ultrasound guided placement of left IJ 14 [place] 24 cm temporary hemodialysis catheter, bedside in ICU, as described.
--- NOTE | 2016-10-28 15:40 | PDOC ---
PROGRESS NOTES Subjective Subjective Patient mildly confused. No cardiac complaints. The pacemaker was interrogated and it showed a normal function and to be programmed to VVI. The underlying rhythm is atrial fibrillation and the patient is pacer dependent Objective Objective Vital Signs Date Time Temp Pulse Resp B/P Pulse Ox O2 Delivery O2 Flow Rate FiO2 10/28/16 15:00 60 22 116/50 100 Nasal Cannula 3.5 10/28/16 12:00 98.1 98.1 Intake and Output 10/28/16 07:00 Intake Total 368 ml Output Total 1453 ml Balance -1085 ml Intake Oral 75 ml IV Total 120 ml Other 173 ml Output Urine Total 1453 ml Physical Exam Physical Exam Moving air a little better. No other changes in cardiac exam Assessment Assessment Patient hemodynamically is unchanged. I would continue with the current dobutamine drip. The GI bleed situation is being followed. At this time I don't think that he should undergo a heart catheterization. If he is doing better may wean off the dobutamine drip tomorrow. Problems Medical Problems: (1) CHF exacerbation Status: Acute Comment Review of Relevant I have reviewed the following items dorian (where applicable) has been applied. Labs Laboratory Tests Test 10/26/16 17:30 10/27/16 03:30 10/27/16 08:25 10/27/16 13:24 Nasal Screen MRSA (PCR) Negative (Negative) White Blood Count 8.3x10^3/uL (4.0-11.0) Red Blood Count 3.64x10^6/uL (4.30-5.70) Hemoglobin 9.4g/dL (13.0-17.5) Hematocrit 29.6% (39.0-53.0) Mean Corpuscular Volume 81fL (79-100) Mean Corpuscular Hemoglobin 26pg (25-35) Mean Corpuscular Hemoglobin Concent 32g/dL (31-37) Red Cell Distribution Width 19.0% (11.5-14.5) Platelet Count 110x10^3/uL (140-400) Neutrophils (%) (Auto) 75% (31-73) Lymphocytes (%) (Auto) 9% (24-48) Monocytes (%) (Auto) 16% (0-9) Eosinophils (%) (Auto) 0% (0-3) Basophils (%) (Auto) 0% (0-3) Neutrophils # (Auto) 6.2x10^3uL (1.8-7.7) Lymphocytes # (Auto) 0.7x10^3/uL (1.0-4.8) Monocytes # (Auto) 1.4x10^3/uL (0.0-1.1) Eosinophils # (Auto) 0.0x10^3/uL (0.0-0.7) Basophils # (Auto) 0.0x10^3/uL (0.0-0.2) Segmented Neutrophils % 80% (35-66) Lymphocytes % 8% (24-48) Monocytes % 10% (0-10) Metamyelocytes % 1% (0-0) Blast Cells % (Manual) 1% (0-0) Platelet Estimate Decreased (ADEQUATE) Anisocytosis Slight Ovalocytes Few [place] Cells Few O2 Saturation 96% (92-99) Arterial Blood pH 7.46 (7.35-7.45) Arterial Blood pCO2 at Patient Temp 19mmHg (35-46) Arterial Blood pO2 at Patient Temp 84mmHg (65-108) Arterial Blood HCO3 13mmol/L (21-28) Arterial Blood Base Excess -9mmol/L (-3-3) FiO2 5 lpm cpap Glucose (Fingerstick) 134mg/dL (70-99) Test 10/27/16 15:00 10/27/16 17:01 10/28/16 05:00 10/28/16 09:14 Urine Collection Type Unknown Urine Color Yellow Urine Clarity Turbid Urine pH 5.5 Urine Specific [place] 1.015 Urine Protein 30mg/dL (NEG-TRACE) Urine Glucose (UA) Negativemg/dL (NEG) Urine Ketones (Stick) Negativemg/dL (NEG) Urine Blood Large (NEG) Urine Nitrite Negative (NEG) Urine Bilirubin Negative (NEG) Urine Urobilinogen Dipstick 0.2mg/dL (0.2 mg/dL) Urine Leukocyte Esterase Trace (NEG) Urine RBC 20-40/HPF (0-2) Urine WBC 0/HPF (0-4) Urine Amorphous Sediment Present/HPF Urine Bacteria 0/HPF (0-FEW) Urine Hyaline Casts Many/HPF Urine Granular Casts Moderate/HPF Urine Mucus Marked/LPF Glucose (Fingerstick) 162mg/dL (70-99) 133mg/dL (70-99) White Blood Count 6.8x10^3/uL (4.0-11.0) Red Blood Count 3.33x10^6/uL (4.30-5.70) Hemoglobin 8.9g/dL (13.0-17.5) Hematocrit 26.1% (39.0-53.0) Mean Corpuscular Volume 78fL (79-100) Mean Corpuscular Hemoglobin 27pg (25-35) Mean Corpuscular Hemoglobin Concent 34g/dL (31-37) Red Cell Distribution Width 19.0% (11.5-14.5) Platelet Count 99x10^3/uL (140-400) Neutrophils (%) (Auto) 69% (31-73) Lymphocytes (%) (Auto) 22% (24-48) Monocytes (%) (Auto) 9% (0-9) Eosinophils (%) (Auto) 0% (0-3) Basophils (%) (Auto) 0% (0-3) Neutrophils # (Auto) 4.6x10^3uL (1.8-7.7) Lymphocytes # (Auto) 1.5x10^3/uL (1.0-4.8) Monocytes # (Auto) 0.6x10^3/uL (0.0-1.1) Eosinophils # (Auto) 0.0x10^3/uL (0.0-0.7) Basophils # (Auto) 0.0x10^3/uL (0.0-0.2) Lactic Acid Level 1.8mmol/L (0.4-2.0) Test 10/28/16 12:56 Glucose (Fingerstick) 175mg/dL (70-99) Laboratory Tests Test 10/27/16 17:01 10/28/16 05:00 10/28/16 09:14 10/28/16 12:56 Glucose (Fingerstick) 162mg/dL (70-99) 133mg/dL (70-99) 175mg/dL (70-99) White Blood Count 6.8x10^3/uL (4.0-11.0) Red Blood Count 3.33x10^6/uL (4.30-5.70) Hemoglobin 8.9g/dL (13.0-17.5) Hematocrit 26.1% (39.0-53.0) Mean Corpuscular Volume 78fL (79-100) Mean Corpuscular Hemoglobin 27pg (25-35) Mean Corpuscular Hemoglobin Concent 34g/dL (31-37) Red Cell Distribution Width 19.0% (11.5-14.5) Platelet Count 99x10^3/uL (140-400) Neutrophils (%) (Auto) 69% (31-73) Lymphocytes (%) (Auto) 22% (24-48) Monocytes (%) (Auto) 9% (0-9) Eosinophils (%) (Auto) 0% (0-3) Basophils (%) (Auto) 0% (0-3) Neutrophils # (Auto) 4.6x10^3uL (1.8-7.7) Lymphocytes # (Auto) 1.5x10^3/uL (1.0-4.8) Monocytes # (Auto) 0.6x10^3/uL (0.0-1.1) Eosinophils # (Auto) 0.0x10^3/uL (0.0-0.7) Basophils # (Auto) 0.0x10^3/uL (0.0-0.2) Lactic Acid Level 1.8mmol/L (0.4-2.0) Medications Current Medications Pantoprazole Sodium 40 mg 40 mg DAILYAC IVP Last administered on 10/28/16 09: 07; Start 10/26/16 at 17:00 Dobutamine HCl/ Dextrose 250 ml @ 0 mls/hr CONT PRN IV SEE I/O RECORD Last administered on 10/28/16 05:20; Start 10/26/16 at 17:00 Furosemide (Lasix) 60 mg 1X ONCE IVP Last administered on 10/27/16 08:15; Start 10/27/16 at 08:30; Stop 10/27/16 at 08:31; Status DC Sodium Bicarbonate 50 meq Q2HR IV Last administered on 10/27/16 12:38; Start 10/27/16 at 10:00; Stop 10/27/16 at 12:01; Status DC Albuterol/ Ipratropium (Duoneb) 3 ml RTQID NEB Last administered on 10/28/16 12:02; Start 10/27/16 at 12:00 Heparin Sodium (Porcine) (Heparin Sodium) 10,000 unit STK-MED ONCE .ROUTE ; Start 10/27/16 at 10:01; Stop 10/27/16 at 10:02; Status DC Lidocaine/Sodium Bicarbonate 20 ml 20 ml STK-MED ONCE IJ ; Start 10/27/16 at 10: 01; Stop 10/27/16 at 10:02; Status DC Heparin Sodium/ Sodium Chloride 500 ml @ As Directed STK-MED ONCE .ROUTE ; Start 10/27/16 at 10:01; Stop 10/27/16 at 10:02; Status DC Lidocaine/Sodium Bicarbonate (Buffered Lidocaine 1%) 3 ml 1X ONCE IJ Last administered on 10/27/16 12:16; Start 10/27/16 at 10:15; Stop 10/27/16 at 10:16 ; Status DC Heparin Sodium/ Sodium Chloride 60 unit 1X ONCE IV Last administered on 12:14; Start 10/27/16 at 10:15; Stop 10/27/16 at 10:16; Status DC Heparin Sodium (Porcine) (Heparin Sodium) 2,500 unit 1X ONCE INT CAT Last administered on 10/27/16 12:16; Start 10/27/16 at 10:15; Stop 10/27/16 at 10:16 ; Status DC Aspirin (Krystian Aspirin) 325 mg DAILY PO Last administered on 10/28/16 09:07; Start 10/27/16 at 12:00 Vitamin D (Vitamin D3) 1,000 unit DAILY PO Last administered on 10/28/16 09:08 ; Start 10/27/16 at 12:00 Diltiazem HCl (Cardizem Cd) 300 mg DAILY PO Last administered on 10/27/16 13: 21; Start 10/27/16 at 12:00 Furosemide (Lasix) 40 mg BID94 PO Last administered on 10/28/16 09:11; Start 10/27/16 at 12:00 Insulin Aspart (Novolog) 11 units TIDWMEALS SQ ; Start 10/27/16 at 12:00 Levothyroxine Sodium (Synthroid) 125 mcg DAILY07 PO Last administered on 06:25; Start 10/27/16 at 12:00 Lisinopril (Prinivil) 40 mg DAILY PO Last administered on 10/27/16 13:22; Start 10/27/16 at 12:00 Methocarbamol (Robaxin) 500 mg PRN TID PRN PO MUSCLE SPASMS; Start 10/27/16 at 11:15 Tamsulosin HCl (Flomax) 0.4 mg QHS PO Last administered on 10/27/16 20:58; Start 10/27/16 at 21:00 Albuterol Sulfate (Ventolin Neb Soln) 2.5 mg PRN Q4HRS PRN NEB SHORTNESS OF BREATH; Start 10/27/16 at 11:30 Brimonidine Tartrate (Alphagan) 1 drop BID OU Last administered on 10/28/16 09 :09; Start 10/27/16 at 12:00 Artificial Tears (Artificial Tears) 1 drop PRN Q15MIN PRN OU DRY EYE; Start at 11:30 Ferrous Sulfate (Feosol) 325 mg BIDWMEALS PO Last administered on 10/28/16 09: 08; Start 10/27/16 at 12:00 Gabapentin (Neurontin) 300 mg BID PO Last administered on 10/28/16 09:07; Start 10/27/16 at 12:00 Non-Formulary Medication 1 inh QID IH ; Start 10/27/16 at 13:00; Status UNV Non-Formulary Medication 1 each TID TP ; Start 10/27/16 at 14:00; Status UNV Non-Formulary Medication 1 tab BID PO ; Start 10/27/16 at 21:00; Status UNV Potassium Chloride (Klor-Con) 10 meq DAILYWBKFT PO Last administered on 09:07; Start 10/28/16 at 08:00 Atorvastatin Calcium (Lipitor) 20 mg QHS PO Last administered on 10/27/16 20: 58; Start 10/27/16 at 21:00 Linagliptin (Tradjenta) 5 mg DAILY PO Last administered on 10/28/16 09:08; Start 10/27/16 at 12:00 Furosemide (Lasix) 60 mg 1X ONCE IVP ; Start 10/28/16 at 08:00; Stop 10/28/16 at 08:01; Status DC Active Scripts Active Reported Tamsulosin Hcl 0.4 Mg Cap.er.24h 0.4 Mg PO QHS Onglyza (Saxagliptin Hcl) 5 Mg Tablet 1 Tab PO DAILY Crestor (Rosuvastatin Calcium) 10 Mg Tablet 0.5 Tab PO DAILY Potassium Chloride 20 Meq Tablet.er 10 Meq PO DAILY Omeprazole 20 Mg Tablet.dr 1 Tab PO BID Nitrostat (Nitroglycerin) 0.3 Mg Tab.subl 0.3 Mg SL PRN Q5MIN PRN Methocarbamol 500 Mg Tablet 500 Mg PO PRN TID PRN [place] Ultra Strength (Menthol) 1 Each Adh..patch 1 Each TP TID Lisinopril 40 Mg Tablet 1 Tab PO DAILY Levothyroxine Sodium 125 Mcg Tablet 1 Tab PO DAILY Novolog Flexpen (Insulin Aspart) 100 Unit/1 Ml Insuln.pen 11 Unit SQ TIDWMEALS Gabapentin 300 Mg Capsule 300 Mg PO TID Furosemide 40 Mg Tablet 40 Mg PO BID Ferrous Sulfate 324 Mg Tablet.dr 324 Mg PO BID Cardizem Cd (Diltiazem Hcl) 300 Mg Cap.er.24h 300 Mg PO DAILY Vitamin D3 (Cholecalciferol (Vitamin D3)) 1,000 Unit Tablet 1 Tab PO DAILY Refresh Optive Advanced Drops (Carboxymethyl/Glycerin/Poly80) 10 Ml Drops 1 Drop OP PRN QID PRN Alphagan P (Brimonidine Tartrate) 5 Ml Drops 1 Drop EACHEYE BID Aspirin 325 Mg Tablet 1 Tab PO DAILY Albuterol Sulfate Conc Neb Soln (Albuterol Sulfate) 2.5 Mg/0.5 Ml Vial.neb 1 Vial NEB Q4HRS Combivent Respimat Inhal (Ipratropium/Albuterol Sulfate) 4 Gm Aer.w.adap 1 Inh IH QID Vitals/I & O Vital Sign - Last 24 Hours 10/27/16 10/27/16 10/27/16 10/27/16 15:43 15:43 15:50 17:05 Temp 99.5 99.5 Pulse 67 67 Resp 25 22 B/P 93/35 102/44 Pulse Ox 99 99 98 O2 Delivery Nasal Cannula Nasal Cannula Nasal Cannula Nasal Cannula O2 Flow Rate 3.0 3.5 3.5 3.5 10/27/16 10/27/16 10/27/16 10/27/16 17:59 19:00 19:49 20:00 Pulse 60 60 Resp 26 22 B/P 103/41 89/35 Pulse Ox 98 100 100 O2 Delivery Nasal Cannula Nasal Cannula Nasal Cannula Nasal Cannula O2 Flow Rate 3.5 3.5 3.0 3.5 10/27/16 10/27/16 10/27/16 10/27/16 20:00 21:00 22:00 23:00 Temp 100.2 100.2 Pulse 60 60 60 60 Resp 20 24 22 21 B/P 85/33 90/36 125/76 110/42 Pulse Ox 100 100 100 100 O2 Delivery Nasal Cannula Nasal Cannula Nasal Cannula Nasal Cannula O2 Flow Rate 3.5 3.5 3.5 3.5 10/27/16 10/28/16 10/28/16 10/28/16 23:57 00:00 01:00 02:00 Temp 98.5 98.5 Pulse 60 60 60 Resp 20 20 20 B/P 98/35 93/41 90/38 Pulse Ox 100 95 97 O2 Delivery Nasal Cannula Nasal Cannula Nasal Cannula Nasal Cannula O2 Flow Rate 3.5 3.5 3.5 3.5 10/28/16 10/28/16 10/28/16 10/28/16 03:00 03:49 04:00 05:00 Temp 98.8 98.8 Pulse 60 60 60 Resp 20 20 20 B/P 103/43 110/38 90/32 Pulse Ox 96 98 98 O2 Delivery Nasal Cannula Nasal Cannula Nasal Cannula Nasal Cannula O2 Flow Rate 3.5 3.5 3.5 3.5 10/28/16 10/28/16 10/28/16 10/28/16 06:00 07:00 08:00 08:00 Temp 98.1 98.1 Pulse 60 60 60 Resp 20 25 30 B/P 104/41 95/32 130/50 Pulse Ox 99 100 99 O2 Delivery Nasal Cannula Nasal Cannula Nasal Cannula Nasal Cannula O2 Flow Rate 3.5 3.5 3.5 3.5 10/28/16 10/28/16 10/28/16 10/28/16 09:00 09:00 09:00 09:02 Pulse 60 60 60 Resp 27 B/P 85/31 95/31 133/49 Pulse Ox 99 100 O2 Delivery Nasal Cannula Nasal Cannula O2 Flow Rate 3.5 3.0 10/28/16 10/28/16 10/28/16 10/28/16 10:00 11:00 12:00 12:00 Temp 98.1 98.1 Pulse 60 60 60 Resp 20 22 22 B/P 113/44 102/45 98/48 Pulse Ox 97 99 99 O2 Delivery Nasal Cannula Nasal Cannula Nasal Cannula Nasal Cannula O2 Flow Rate 3.5 3.5 3.5 3.5 10/28/16 10/28/16 10/28/16 10/28/16 12:03 13:00 14:00 15:00 Pulse 60 60 60 Resp 16 22 B/P 101/47 118/55 116/50 Pulse Ox 97 99 100 100 O2 Delivery Nasal Cannula Nasal Cannula Nasal Cannula Nasal Cannula O2 Flow Rate 3.0 3.5 3.5 3.5 Intake and Output 10/27/16 10/27/16 10/28/16 15:00 23:00 07:00 Intake Total 75 ml 173 ml 120 ml Output Total 810 ml 324 ml 319 ml Balance -735 ml -151 ml -199 ml WENDIE ANGEL MD Oct 28, 2016 15:39
--- NOTE | 2016-10-28 17:10 | PDOC ---
PULMONARY PROGRESS NOTES Subjective PT OFF BIPAP FEELS LESS SOA Vitals Vital Signs Date Time Temp Pulse Resp B/P Pulse Ox O2 Delivery O2 Flow Rate FiO2 10/28/16 16:17 97 Nasal Cannula 3.0 10/28/16 16:00 98.2 60 27 130/48 98.2 ROS: No Nausea, No Chest Pain, No Abdominal Pain, No Increase Cough Lungs: Crackles Cardiovascular: S1, S2 Abdomen: Soft Neuro Exam: Alert Extremities: No Edema Skin: Warm Labs Laboratory Tests Test 10/26/16 17:30 10/27/16 03:30 10/27/16 08:25 10/27/16 13:24 Nasal Screen MRSA (PCR) Negative (Negative) White Blood Count 8.3x10^3/uL (4.0-11.0) Red Blood Count 3.64x10^6/uL (4.30-5.70) Hemoglobin 9.4g/dL (13.0-17.5) Hematocrit 29.6% (39.0-53.0) Mean Corpuscular Volume 81fL (79-100) Mean Corpuscular Hemoglobin 26pg (25-35) Mean Corpuscular Hemoglobin Concent 32g/dL (31-37) Red Cell Distribution Width 19.0% (11.5-14.5) Platelet Count 110x10^3/uL (140-400) Neutrophils (%) (Auto) 75% (31-73) Lymphocytes (%) (Auto) 9% (24-48) Monocytes (%) (Auto) 16% (0-9) Eosinophils (%) (Auto) 0% (0-3) Basophils (%) (Auto) 0% (0-3) Neutrophils # (Auto) 6.2x10^3uL (1.8-7.7) Lymphocytes # (Auto) 0.7x10^3/uL (1.0-4.8) Monocytes # (Auto) 1.4x10^3/uL (0.0-1.1) Eosinophils # (Auto) 0.0x10^3/uL (0.0-0.7) Basophils # (Auto) 0.0x10^3/uL (0.0-0.2) Segmented Neutrophils % 80% (35-66) Lymphocytes % 8% (24-48) Monocytes % 10% (0-10) Metamyelocytes % 1% (0-0) Blast Cells % (Manual) 1% (0-0) Platelet Estimate Decreased (ADEQUATE) Anisocytosis Slight Ovalocytes Few [place] Cells Few O2 Saturation 96% (92-99) Arterial Blood pH 7.46 (7.35-7.45) Arterial Blood pCO2 at Patient Temp 19mmHg (35-46) Arterial Blood pO2 at Patient Temp 84mmHg (65-108) Arterial Blood HCO3 13mmol/L (21-28) Arterial Blood Base Excess -9mmol/L (-3-3) FiO2 5 lpm cpap Glucose (Fingerstick) 134mg/dL (70-99) Test 10/27/16 15:00 10/27/16 17:01 10/28/16 05:00 10/28/16 09:14 Urine Collection Type Unknown Urine Color Yellow Urine Clarity Turbid Urine pH 5.5 Urine Specific [place] 1.015 Urine Protein 30mg/dL (NEG-TRACE) Urine Glucose (UA) Negativemg/dL (NEG) Urine Ketones (Stick) Negativemg/dL (NEG) Urine Blood Large (NEG) Urine Nitrite Negative (NEG) Urine Bilirubin Negative (NEG) Urine Urobilinogen Dipstick 0.2mg/dL (0.2 mg/dL) Urine Leukocyte Esterase Trace (NEG) Urine RBC 20-40/HPF (0-2) Urine WBC 0/HPF (0-4) Urine Amorphous Sediment Present/HPF Urine Bacteria 0/HPF (0-FEW) Urine Hyaline Casts Many/HPF Urine Granular Casts Moderate/HPF Urine Mucus Marked/LPF Glucose (Fingerstick) 162mg/dL (70-99) 133mg/dL (70-99) White Blood Count 6.8x10^3/uL (4.0-11.0) Red Blood Count 3.33x10^6/uL (4.30-5.70) Hemoglobin 8.9g/dL (13.0-17.5) Hematocrit 26.1% (39.0-53.0) Mean Corpuscular Volume 78fL (79-100) Mean Corpuscular Hemoglobin 27pg (25-35) Mean Corpuscular Hemoglobin Concent 34g/dL (31-37) Red Cell Distribution Width 19.0% (11.5-14.5) Platelet Count 99x10^3/uL (140-400) Neutrophils (%) (Auto) 69% (31-73) Lymphocytes (%) (Auto) 22% (24-48) Monocytes (%) (Auto) 9% (0-9) Eosinophils (%) (Auto) 0% (0-3) Basophils (%) (Auto) 0% (0-3) Neutrophils # (Auto) 4.6x10^3uL (1.8-7.7) Lymphocytes # (Auto) 1.5x10^3/uL (1.0-4.8) Monocytes # (Auto) 0.6x10^3/uL (0.0-1.1) Eosinophils # (Auto) 0.0x10^3/uL (0.0-0.7) Basophils # (Auto) 0.0x10^3/uL (0.0-0.2) Lactic Acid Level 1.8mmol/L (0.4-2.0) Test 10/28/16 12:56 Glucose (Fingerstick) 175mg/dL (70-99) Laboratory Tests Test 10/28/16 05:00 10/28/16 09:14 10/28/16 12:56 White Blood Count 6.8x10^3/uL (4.0-11.0) Red Blood Count 3.33x10^6/uL (4.30-5.70) Hemoglobin 8.9g/dL (13.0-17.5) Hematocrit 26.1% (39.0-53.0) Mean Corpuscular Volume 78fL (79-100) Mean Corpuscular Hemoglobin 27pg (25-35) Mean Corpuscular Hemoglobin Concent 34g/dL (31-37) Red Cell Distribution Width 19.0% (11.5-14.5) Platelet Count 99x10^3/uL (140-400) Neutrophils (%) (Auto) 69% (31-73) Lymphocytes (%) (Auto) 22% (24-48) Monocytes (%) (Auto) 9% (0-9) Eosinophils (%) (Auto) 0% (0-3) Basophils (%) (Auto) 0% (0-3) Neutrophils # (Auto) 4.6x10^3uL (1.8-7.7) Lymphocytes # (Auto) 1.5x10^3/uL (1.0-4.8) Monocytes # (Auto) 0.6x10^3/uL (0.0-1.1) Eosinophils # (Auto) 0.0x10^3/uL (0.0-0.7) Basophils # (Auto) 0.0x10^3/uL (0.0-0.2) Lactic Acid Level 1.8mmol/L (0.4-2.0) Glucose (Fingerstick) 133mg/dL (70-99) 175mg/dL (70-99) Medications Active Scripts Medications Dose Route/Sig Days Date Category Tamsulosin Hcl 0.4 Mg Cap.er.24h 0.4 Mg PO QHS 10/27/16 Reported Onglyza (Saxagliptin Hcl) 5 Mg Tablet 1 Tab PO DAILY 10/27/16 Reported Crestor (Rosuvastatin Calcium) 10 Mg Tablet 0.5 Tab PO DAILY 10/27/16 Reported Potassium Chloride 20 Meq Tablet.er 10 Meq PO DAILY 10/27/16 Reported Omeprazole 20 Mg Tablet.dr 1 Tab PO BID 10/27/16 Reported Nitrostat (Nitroglycerin) 0.3 Mg Tab.subl 0.3 Mg SL PRN Q5MIN PRN 10/27/16 Reported Methocarbamol 500 Mg Tablet 500 Mg PO PRN TID PRN 10/27/16 Reported [place] Ultra Strength (Menthol) 1 Each Adh..patch 1 Each TP TID 10/27/16 Reported Lisinopril 40 Mg Tablet 1 Tab PO DAILY 10/27/16 Reported Levothyroxine Sodium 125 Mcg Tablet 1 Tab PO DAILY 10/27/16 Reported Novolog Flexpen (Insulin Aspart) 100 Unit/1 Ml Insuln.pen 11 Unit SQ TIDWMEALS 10/27/16 Reported Gabapentin 300 Mg Capsule 300 Mg PO TID 10/27/16 Reported Furosemide 40 Mg Tablet 40 Mg PO BID 10/27/16 Reported Ferrous Sulfate 324 Mg Tablet.dr 324 Mg PO BID 10/27/16 Reported Cardizem Cd (Diltiazem Hcl) 300 Mg Cap.er.24h 300 Mg PO DAILY 10/27/16 Reported Vitamin D3 (Cholecalciferol (Vitamin D3)) 1,000 Unit Tablet 1 Tab PO DAILY 4/28/17 Reported Refresh Optive Advanced Drops (Carboxymethyl/Glycerin/Poly80) 10 Ml Drops 1 Drop OP PRN QID PRN 10/27/16 Reported Alphagan P (Brimonidine Tartrate) 5 Ml Drops 1 Drop EACHEYE BID 10/27/16 Reported Aspirin 325 Mg Tablet 1 Tab PO DAILY 10/27/16 Reported Albuterol Sulfate Conc Neb Soln (Albuterol Sulfate) 2.5 Mg/0.5 Ml Vial.neb 1 Vial NEB Q4HRS 10/27/16 Reported Combivent Respimat Inhal (Ipratropium/Albuterol Sulfate) 4 Gm Aer.w.adap 1 Inh IH QID 10/27/16 Reported Impression . 1. Acute hypoxemic respiratory failure/AECOPD 2. Acute on chronic kidney failure. 3. Chronic heart failure, possible acute systolic heart failure. 4. Cardiomyopathy. 5. Status post pacemaker. 6. Coronary artery disease, status post coronary artery bypass grafting. 7. Hypertension. 8. Obstructive sleep apnea. 9. Acute on chronic blood-loss anemia. 10. Metabolic acidosis, suspect secondary to renal tubular acidosis, chronic kidney disease. Plan . FEELS BETTER WILL TREAT FOR AECOPD 1. We will switch from CPAP to BiPAP with oxygen supplementation. 2. Venous Dopplers of the lower extremities. 3. Follow card input 4. No need for antibiotics. 5. Monitor hemoglobin and hematocrit. JANEE MAYBERRY MD Oct 28, 2016 17:10
--- NOTE | 2016-10-28 17:29 | PDOC ---
Provider Note Provider Note RENAL F/U : HEATHER S : Doing better. No new issues reported. O : VSS Afebrile. Neck : Supple Lungs : Non labored. Few rhonchi. CVS : RRR Abd : Benign appearing. No major distention. Ext: No edema. Neuro : Intact Labs and meds reviewed. A/P : ARF : No labs today. Renal hypoperfusion. HTN w CKD. CKD : Stage III/IV. CHF : On inotropes. Per cardiology. CPM. Supportive care. Aiden Romero M.D. AIEDN ROMERO MD Oct 28, 2016 17:29
[2016-10-28] MEDS: TAMSULOSIN 0.4 MG CAP.ER.24H. PO SCH (20:55)
[2016-10-28] MEDS: ATORVASTATIN CALCIUM 20 MG TABLET PO SCH (20:55)
--- NOTE | 2016-10-28 21:32 | PDOC ---
PROGRESS NOTES Chief Complaint Chief Complaint GI bleed Critical Hypotention CHF PPM CABG Diabetes, Hypertension, Hyperlipidemia. Debility History of Present Illness History of Present Illness Up in chair Extremely weak Pt on face mask O2. Pleasantly confused. DW RN Reviewed labs and notes Over all he is extremely ill. . Vitals Vitals Vital Signs Date Time Temp Pulse Resp B/P Pulse Ox O2 Delivery O2 Flow Rate FiO2 10/28/16 21:10 100 BiPAP/CPAP 10/28/16 21:00 72 28 137/56 10/28/16 20:00 99.0 99.0 10/28/16 19:30 3.5 Physical Exam General: Other (Extremely ill, weak) Heart: Normal S1, Normal S2, Other (soft S3 ) Lungs: Crackles Abdomen: Normal bowel sounds, Soft, No tenderness Extremities: Other (+1 edema) Skin: No rashes, Other (thin , frail) Labs LABS Laboratory Tests Test 10/28/16 05:00 10/28/16 09:14 10/28/16 12:56 10/28/16 18:07 White Blood Count 6.8x10^3/uL (4.0-11.0) Red Blood Count 3.33x10^6/uL (4.30-5.70) Hemoglobin 8.9g/dL (13.0-17.5) Hematocrit 26.1% (39.0-53.0) Mean Corpuscular Volume 78fL (79-100) Mean Corpuscular Hemoglobin 27pg (25-35) Mean Corpuscular Hemoglobin Concent 34g/dL (31-37) Red Cell Distribution Width 19.0% (11.5-14.5) Platelet Count 99x10^3/uL (140-400) Neutrophils (%) (Auto) 69% (31-73) Lymphocytes (%) (Auto) 22% (24-48) Monocytes (%) (Auto) 9% (0-9) Eosinophils (%) (Auto) 0% (0-3) Basophils (%) (Auto) 0% (0-3) Neutrophils # (Auto) 4.6x10^3uL (1.8-7.7) Lymphocytes # (Auto) 1.5x10^3/uL (1.0-4.8) Monocytes # (Auto) 0.6x10^3/uL (0.0-1.1) Eosinophils # (Auto) 0.0x10^3/uL (0.0-0.7) Basophils # (Auto) 0.0x10^3/uL (0.0-0.2) Lactic Acid Level 1.8mmol/L (0.4-2.0) Glucose (Fingerstick) 133mg/dL (70-99) 175mg/dL (70-99) 148mg/dL (70-99) Review of Systems Review of Systems unreliable Assessment and Plan Assessmemt and Plan Problems Medical Problems: (1) CHF exacerbation Status: Acute GI bleed Critical Hypotention CHF PPM CABG Diabetes, Hypertension, Hyperlipidemia. Debility Plan Follow HgB ICU monitoring IV PPI Cardiac monitoring PRN transfusions Prog guarded Problems: Comment Review of Relevant I have reviewed the following items dorian (where applicable) has been applied. Labs Laboratory Tests Test 10/27/16 03:30 10/27/16 08:25 10/27/16 13:24 10/27/16 15:00 White Blood Count 8.3x10^3/uL (4.0-11.0) Red Blood Count 3.64x10^6/uL (4.30-5.70) Hemoglobin 9.4g/dL (13.0-17.5) Hematocrit 29.6% (39.0-53.0) Mean Corpuscular Volume 81fL (79-100) Mean Corpuscular Hemoglobin 26pg (25-35) Mean Corpuscular Hemoglobin Concent 32g/dL (31-37) Red Cell Distribution Width 19.0% (11.5-14.5) Platelet Count 110x10^3/uL (140-400) Neutrophils (%) (Auto) 75% (31-73) Lymphocytes (%) (Auto) 9% (24-48) Monocytes (%) (Auto) 16% (0-9) Eosinophils (%) (Auto) 0% (0-3) Basophils (%) (Auto) 0% (0-3) Neutrophils # (Auto) 6.2x10^3uL (1.8-7.7) Lymphocytes # (Auto) 0.7x10^3/uL (1.0-4.8) Monocytes # (Auto) 1.4x10^3/uL (0.0-1.1) Eosinophils # (Auto) 0.0x10^3/uL (0.0-0.7) Basophils # (Auto) 0.0x10^3/uL (0.0-0.2) Segmented Neutrophils % 80% (35-66) Lymphocytes % 8% (24-48) Monocytes % 10% (0-10) Metamyelocytes % 1% (0-0) Blast Cells % (Manual) 1% (0-0) Platelet Estimate Decreased (ADEQUATE) Anisocytosis Slight Ovalocytes Few Shaye Cells Few O2 Saturation 96% (92-99) Arterial Blood pH 7.46 (7.35-7.45) Arterial Blood pCO2 at Patient Temp 19mmHg (35-46) Arterial Blood pO2 at Patient Temp 84mmHg (65-108) Arterial Blood HCO3 13mmol/L (21-28) Arterial Blood Base Excess -9mmol/L (-3-3) FiO2 5 lpm cpap Glucose (Fingerstick) 134mg/dL (70-99) Urine Collection Type Unknown Urine Color Yellow Urine Clarity Turbid Urine pH 5.5 Urine Specific [place] 1.015 Urine Protein 30mg/dL (NEG-TRACE) Urine Glucose (UA) Negativemg/dL (NEG) Urine Ketones (Stick) Negativemg/dL (NEG) Urine Blood Large (NEG) Urine Nitrite Negative (NEG) Urine Bilirubin Negative (NEG) Urine Urobilinogen Dipstick 0.2mg/dL (0.2 mg/dL) Urine Leukocyte Esterase Trace (NEG) Urine RBC 20-40/HPF (0-2) Urine WBC 0/HPF (0-4) Urine Amorphous Sediment Present/HPF Urine Bacteria 0/HPF (0-FEW) Urine Hyaline Casts Many/HPF Urine Granular Casts Moderate/HPF Urine Mucus Marked/LPF Test 10/27/16 17:01 10/28/16 05:00 10/28/16 09:14 10/28/16 12:56 Glucose (Fingerstick) 162mg/dL (70-99) 133mg/dL (70-99) 175mg/dL (70-99) White Blood Count 6.8x10^3/uL (4.0-11.0) Red Blood Count 3.33x10^6/uL (4.30-5.70) Hemoglobin 8.9g/dL (13.0-17.5) Hematocrit 26.1% (39.0-53.0) Mean Corpuscular Volume 78fL (79-100) Mean Corpuscular Hemoglobin 27pg (25-35) Mean Corpuscular Hemoglobin Concent 34g/dL (31-37) Red Cell Distribution Width 19.0% (11.5-14.5) Platelet Count 99x10^3/uL (140-400) Neutrophils (%) (Auto) 69% (31-73) Lymphocytes (%) (Auto) 22% (24-48) Monocytes (%) (Auto) 9% (0-9) Eosinophils (%) (Auto) 0% (0-3) Basophils (%) (Auto) 0% (0-3) Neutrophils # (Auto) 4.6x10^3uL (1.8-7.7) Lymphocytes # (Auto) 1.5x10^3/uL (1.0-4.8) Monocytes # (Auto) 0.6x10^3/uL (0.0-1.1) Eosinophils # (Auto) 0.0x10^3/uL (0.0-0.7) Basophils # (Auto) 0.0x10^3/uL (0.0-0.2) Lactic Acid Level 1.8mmol/L (0.4-2.0) Test 10/28/16 18:07 Glucose (Fingerstick) 148mg/dL (70-99) Laboratory Tests Test 10/28/16 05:00 10/28/16 09:14 10/28/16 12:56 10/28/16 18:07 White Blood Count 6.8x10^3/uL (4.0-11.0) Red Blood Count 3.33x10^6/uL (4.30-5.70) Hemoglobin 8.9g/dL (13.0-17.5) Hematocrit 26.1% (39.0-53.0) Mean Corpuscular Volume 78fL (79-100) Mean Corpuscular Hemoglobin 27pg (25-35) Mean Corpuscular Hemoglobin Concent 34g/dL (31-37) Red Cell Distribution Width 19.0% (11.5-14.5) Platelet Count 99x10^3/uL (140-400) Neutrophils (%) (Auto) 69% (31-73) Lymphocytes (%) (Auto) 22% (24-48) Monocytes (%) (Auto) 9% (0-9) Eosinophils (%) (Auto) 0% (0-3) Basophils (%) (Auto) 0% (0-3) Neutrophils # (Auto) 4.6x10^3uL (1.8-7.7) Lymphocytes # (Auto) 1.5x10^3/uL (1.0-4.8) Monocytes # (Auto) 0.6x10^3/uL (0.0-1.1) Eosinophils # (Auto) 0.0x10^3/uL (0.0-0.7) Basophils # (Auto) 0.0x10^3/uL (0.0-0.2) Lactic Acid Level 1.8mmol/L (0.4-2.0) Glucose (Fingerstick) 133mg/dL (70-99) 175mg/dL (70-99) 148mg/dL (70-99) Microbiology 10/27/16 Urine Culture - Preliminary, Resulted 10/27/16 Urine Culture Result 1 (JANEL) - Preliminary, Resulted Medications Current Medications Pantoprazole Sodium 40 mg 40 mg DAILYAC IVP Last administered on 10/28/16 09: 07; Start 10/26/16 at 17:00 Dobutamine HCl/ Dextrose 250 ml @ 0 mls/hr CONT PRN IV SEE I/O RECORD Last administered on 10/28/16 05:20; Start 10/26/16 at 17:00 Furosemide (Lasix) 60 mg 1X ONCE IVP Last administered on 10/27/16 08:15; Start 10/27/16 at 08:30; Stop 10/27/16 at 08:31; Status DC Sodium Bicarbonate 50 meq Q2HR IV Last administered on 10/27/16 12:38; Start 10/27/16 at 10:00; Stop 10/27/16 at 12:01; Status DC Albuterol/ Ipratropium (Duoneb) 3 ml RTQID NEB Last administered on 10/28/16 19:36; Start 10/27/16 at 12:00 Heparin Sodium (Porcine) (Heparin Sodium) 10,000 unit STK-MED ONCE .ROUTE ; Start 10/27/16 at 10:01; Stop 10/27/16 at 10:02; Status DC Lidocaine/Sodium Bicarbonate 20 ml 20 ml STK-MED ONCE IJ ; Start 10/27/16 at 10: 01; Stop 10/27/16 at 10:02; Status DC Heparin Sodium/ Sodium Chloride 500 ml @ As Directed STK-MED ONCE .ROUTE ; Start 10/27/16 at 10:01; Stop 10/27/16 at 10:02; Status DC Lidocaine/Sodium Bicarbonate (Buffered Lidocaine 1%) 3 ml 1X ONCE IJ Last administered on 10/27/16 12:16; Start 10/27/16 at 10:15; Stop 10/27/16 at 10:16 ; Status DC Heparin Sodium/ Sodium Chloride 60 unit 1X ONCE IV Last administered on 12:14; Start 10/27/16 at 10:15; Stop 10/27/16 at 10:16; Status DC Heparin Sodium (Porcine) (Heparin Sodium) 2,500 unit 1X ONCE INT CAT Last administered on 10/27/16 12:16; Start 10/27/16 at 10:15; Stop 10/27/16 at 10:16 ; Status DC Aspirin (Krystian Aspirin) 325 mg DAILY PO Last administered on 10/28/16 09:07; Start 10/27/16 at 12:00 Vitamin D (Vitamin D3) 1,000 unit DAILY PO Last administered on 10/28/16 09:08 ; Start 10/27/16 at 12:00 Diltiazem HCl (Cardizem Cd) 300 mg DAILY PO Last administered on 10/27/16 13: 21; Start 10/27/16 at 12:00 Furosemide (Lasix) 40 mg BID94 PO Last administered on 10/28/16 17:13; Start 10/27/16 at 12:00 Insulin Aspart (Novolog) 11 units TIDWMEALS SQ ; Start 10/27/16 at 12:00 Levothyroxine Sodium (Synthroid) 125 mcg DAILY07 PO Last administered on 06:25; Start 10/27/16 at 12:00 Lisinopril (Prinivil) 40 mg DAILY PO Last administered on 10/27/16 13:22; Start 10/27/16 at 12:00 Methocarbamol (Robaxin) 500 mg PRN TID PRN PO MUSCLE SPASMS; Start 10/27/16 at 11:15 Tamsulosin HCl (Flomax) 0.4 mg QHS PO Last administered on 10/28/16 20:55; Start 10/27/16 at 21:00 Albuterol Sulfate (Ventolin Neb Soln) 2.5 mg PRN Q4HRS PRN NEB SHORTNESS OF BREATH; Start 10/27/16 at 11:30 Brimonidine Tartrate (Alphagan) 1 drop BID OU Last administered on 10/28/16 20 :55; Start 10/27/16 at 12:00 Artificial Tears (Artificial Tears) 1 drop PRN Q15MIN PRN OU DRY EYE; Start at 11:30 Ferrous Sulfate (Feosol) 325 mg BIDWMEALS PO Last administered on 10/28/16 17: 13; Start 10/27/16 at 12:00 Gabapentin (Neurontin) 300 mg BID PO Last administered on 10/28/16 20:55; Start 10/27/16 at 12:00 Non-Formulary Medication 1 inh QID IH ; Start 10/27/16 at 13:00; Status UNV Non-Formulary Medication 1 each TID TP ; Start 10/27/16 at 14:00; Status UNV Non-Formulary Medication 1 tab BID PO ; Start 10/27/16 at 21:00; Status UNV Potassium Chloride (Klor-Con) 10 meq DAILYWBKFT PO Last administered on 09:07; Start 10/28/16 at 08:00 Atorvastatin Calcium (Lipitor) 20 mg QHS PO Last administered on 10/28/16 20: 55; Start 10/27/16 at 21:00 Linagliptin (Tradjenta) 5 mg DAILY PO Last administered on 10/28/16 09:08; Start 10/27/16 at 12:00 Furosemide (Lasix) 60 mg 1X ONCE IVP ; Start 10/28/16 at 08:00; Stop 10/28/16 at 08:01; Status DC Active Scripts Active Reported Tamsulosin Hcl 0.4 Mg Cap.er.24h 0.4 Mg PO QHS Onglyza (Saxagliptin Hcl) 5 Mg Tablet 1 Tab PO DAILY Crestor (Rosuvastatin Calcium) 10 Mg Tablet 0.5 Tab PO DAILY Potassium Chloride 20 Meq Tablet.er 10 Meq PO DAILY Omeprazole 20 Mg Tablet.dr 1 Tab PO BID Nitrostat (Nitroglycerin) 0.3 Mg Tab.subl 0.3 Mg SL PRN Q5MIN PRN Methocarbamol 500 Mg Tablet 500 Mg PO PRN TID PRN [place] Ultra Strength (Menthol) 1 Each Adh..patch 1 Each TP TID Lisinopril 40 Mg Tablet 1 Tab PO DAILY Levothyroxine Sodium 125 Mcg Tablet 1 Tab PO DAILY Novolog Flexpen (Insulin Aspart) 100 Unit/1 Ml Insuln.pen 11 Unit SQ TIDWMEALS Gabapentin 300 Mg Capsule 300 Mg PO TID Furosemide 40 Mg Tablet 40 Mg PO BID Ferrous Sulfate 324 Mg Tablet.dr 324 Mg PO BID Cardizem Cd (Diltiazem Hcl) 300 Mg Cap.er.24h 300 Mg PO DAILY Vitamin D3 (Cholecalciferol (Vitamin D3)) 1,000 Unit Tablet 1 Tab PO DAILY Refresh Optive Advanced Drops (Carboxymethyl/Glycerin/Poly80) 10 Ml Drops 1 Drop OP PRN QID PRN Alphagan P (Brimonidine Tartrate) 5 Ml Drops 1 Drop EACHEYE BID Aspirin 325 Mg Tablet 1 Tab PO DAILY Albuterol Sulfate Conc Neb Soln (Albuterol Sulfate) 2.5 Mg/0.5 Ml Vial.neb 1 Vial NEB Q4HRS Combivent Respimat Inhal (Ipratropium/Albuterol Sulfate) 4 Gm Aer.w.adap 1 Inh IH QID Vitals/I & O Vital Sign - Last 24 Hours 10/27/16 10/27/16 10/27/16 10/28/16 22:00 23:00 23:57 00:00 Temp 98.5 98.5 Pulse 60 60 60 Resp 22 21 20 B/P 125/76 110/42 98/35 Pulse Ox 100 100 100 O2 Delivery Nasal Cannula Nasal Cannula Nasal Cannula Nasal Cannula O2 Flow Rate 3.5 3.5 3.5 3.5 10/28/16 10/28/16 10/28/16 10/28/16 01:00 02:00 03:00 03:49 Pulse 60 60 60 Resp 20 20 20 B/P 93/41 90/38 103/43 Pulse Ox 95 97 96 O2 Delivery Nasal Cannula Nasal Cannula Nasal Cannula Nasal Cannula O2 Flow Rate 3.5 3.5 3.5 3.5 10/28/16 10/28/16 10/28/16 10/28/16 04:00 05:00 06:00 07:00 Temp 98.8 98.8 Pulse 60 60 60 60 Resp 20 20 20 25 B/P 110/38 90/32 104/41 95/32 Pulse Ox 98 98 99 100 O2 Delivery Nasal Cannula Nasal Cannula Nasal Cannula Nasal Cannula O2 Flow Rate 3.5 3.5 3.5 3.5 10/28/16 10/28/16 10/28/16 10/28/16 08:00 08:00 09:00 09:00 Temp 98.1 98.1 Pulse 60 60 60 Resp 30 B/P 130/50 85/31 95/31 Pulse Ox 99 O2 Delivery Nasal Cannula Nasal Cannula O2 Flow Rate 3.5 3.5 10/28/16 10/28/16 10/28/16 10/28/16 09:00 09:02 10:00 11:00 Pulse 60 60 60 Resp 27 20 22 B/P 133/49 113/44 102/45 Pulse Ox 99 100 97 99 O2 Delivery Nasal Cannula Nasal Cannula Nasal Cannula Nasal Cannula O2 Flow Rate 3.5 3.0 3.5 3.5 10/28/16 10/28/16 10/28/16 10/28/16 12:00 12:00 12:03 13:00 Temp 98.1 98.1 Pulse 60 60 Resp 22 16 B/P 98/48 101/47 Pulse Ox 99 97 99 O2 Delivery Nasal Cannula Nasal Cannula Nasal Cannula Nasal Cannula O2 Flow Rate 3.5 3.5 3.0 3.5 10/28/16 10/28/16 10/28/16 10/28/16 14:00 15:00 16:00 16:00 Temp 98.2 98.2 Pulse 60 60 60 Resp 23 22 27 B/P 118/55 116/50 130/48 Pulse Ox 100 100 97 O2 Delivery Nasal Cannula Nasal Cannula Nasal Cannula Nasal Cannula O2 Flow Rate 3.5 3.5 3.5 3.5 10/28/16 10/28/16 10/28/16 10/28/16 16:17 17:00 18:00 19:00 Pulse 60 64 63 Resp 30 34 26 B/P 111/47 106/51 121/48 Pulse Ox 97 97 98 98 O2 Delivery Nasal Cannula Nasal Cannula Nasal Cannula Nasal Cannula O2 Flow Rate 3.0 3.5 3.5 3.5 10/28/16 10/28/16 10/28/16 10/28/16 19:30 19:46 20:00 21:00 Temp 99.0 99.0 Pulse 63 72 Resp 28 28 B/P 147/59 137/56 Pulse Ox 99 100 100 O2 Delivery Nasal Cannula BiPAP/CPAP BiPAP/CPAP BiPAP/CPAP O2 Flow Rate 3.5 10/28/16 21:10 Pulse Ox 100 O2 Delivery BiPAP/CPAP Intake and Output 10/27/16 10/27/16 10/28/16 14:59 22:59 06:59 Intake Total 75 ml 173 ml 120 ml Output Total 810 ml 292 ml 281 ml Balance -735 ml -119 ml -161 ml ARGENIS BURT III DO Oct 28, 2016 21:32
[2016-10-29] VITALS (23 sets, daily range): BP systolic 74–133; BP diastolic 39–84
[2016-10-29 05:24] LABS: BASO % 0 % (0-3); EOS % 0 % (0-3); HEMATOCRIT 27.3 % (39.0-53.0); LYMPH # 1.8 x10^3/uL (1.0-4.8); LYMPH % 26 % (24-48); MEAN CORPUSCULAR HEMOGLOBIN 26 pg (25-35); MEAN CORPUSCULAR HGB CONC 33 g/dL (31-37); MEAN CORPUSCULAR VOLUME 79 fL (79-100); MONO % 8 % (0-9); NEUT % 66 % (31-73); PLATELET COUNT 106 x10^3/uL (140-400); RED BLOOD COUNT 3.46 x10^6/uL (4.30-5.70); RED CELL DISTRIBUTION WIDTH 18.8 % (11.5-14.5)
[2016-10-29 05:36] LABS: ALBUMIN 2.8 g/dL (3.4-5.0); ALBUMIN/GLOBULIN RATIO 0.9 (1.0-1.7); CALCIUM 7.9 mg/dL (8.5-10.1); GFR 20.7; MAGNESIUM 2.1 mg/dL (1.8-2.4); POTASSIUM 4.3 mmol/L (3.5-5.1); TOTAL BILIRUBIN 0.8 mg/dL (0.2-1.0)
[2016-10-29] MEDS: LEVOTHYROXINE 125 MCG TABLET PO SCH (06:37)
--- NOTE | 2016-10-29 07:11 | PDOC ---
SUBJECTIVE ROS BELINDA/ CK DIII - with AECOPD Doing and feeling much better CVS: no Orthopnea, no CP RESP: min SOB, ? RAPHAEL GI: no Nausea, no Vomiting : no Dysuria, no Urgency OBJECTIVE Vital Signs Vital Signs Date Time Temp Pulse Resp B/P Pulse Ox O2 Delivery O2 Flow Rate FiO2 10/29/16 06:00 67 26 121/51 99 Nasal Cannula 3.5 10/29/16 04:00 99.1 99.1 I & 0 Intake and Output 10/29/16 07:00 Intake Total 1037 ml Output Total 2342 ml Balance -1305 ml Intake Oral 750 ml IV Total 287 ml Output Urine Total 2342 ml # Bowel Movements 1 PHYSICAL EXAM Physical Exam General Appearance: Awake Alert Oriented x 3 In mod Distress Eyes: VIsion Unchanged Conjunctiva Normal EN: No EN Drainage Mucous Memb. dry Neck: no JVD min JVP Supple no Thyromegaly CVS: S1 S2 no audible Murmur No Gallop No Rub no Edema Resp: no Rales end exp Rhonchi + Acc. Muscle use GI: BS +ve NO Bruit Non Tender Non Distended : no CVA tenderness; no Suprapubic Tenderness SKIN: no Rashes Breast Exam deferred Mu.Sk: Adequate ROM no Muscle Atrophy Heme: Unable to palpate Obvious LAD no palp Splenomegaly NEURO: Good Strength and Tone Cranial Nerves II - XII grossly intact Psych: not Depressed no Active hallucination Assessment & Plan ARF/ ATN ? : May still be somewhat pre-renal from Previous hypotension AND Lasix and Cmyopathy too. I expect him to ct to improve gradually. Cannot r/o element of ATN. recehck US and Cara. Current FLuid and E-lyte status does not necessitate emergent need for Dialysis. Will re-evaluate for Dialysis in am. ? BELINDA due to Saxagliptin Oliguria - better with IVF - suspect still somewhat intrvascularly dry. UO is better with Dobutamine. CmyoPahty with ^ed BNP - now on Doubtamine and much improved LV Function Met ACidosis - min Gap but Lactate is WNL. ? due to renal dysfunction and ongoing diarrhea. IV Bicarb x 1 (Current ABG was done on CPAP and hence may be overcompensated from resp standpoint) Low Na - pt admits to drinking a lot of water. - follow levels. Isotonic IVF and may need 3% SOB/ ? Orthopnea - Consider Pulm Eval; Nebs for possible COPD exac; nebs ordered Anemia: GI eval noted. [facility] h/o HTN : Currently normotensive hypoAlbuminemia - check Urine for Proteinuria Discussed Plan of Care and prognosis etc. at length with pt and RN COMMENT/RELEVANT DATA Meds Current Medications Medications (Trade) Dose Ordered Sig/Jcarlos Start Time Stop Time Status Last Admin Dose Admin Albuterol Sulfate (Ventolin Neb Soln) 2.5 mg PRN Q4HRS PRN 10/27/16 11:30 Albuterol/ Ipratropium (Duoneb) 3 ml RTQID 10/27/16 12:00 10/28/16 19:36 3 ML Artificial Tears (Artificial Tears) 1 drop PRN Q15MIN PRN 10/27/16 11:30 Aspirin (Krystian Aspirin) 325 mg DAILY 10/27/16 12:00 10/28/16 09:07 325 MG Atorvastatin Calcium (Lipitor) 20 mg QHS 10/27/16 21:00 10/28/16 20:55 20 MG Brimonidine Tartrate (Alphagan) 1 drop BID 10/27/16 12:00 10/28/16 20:55 1 DROP Diltiazem HCl (Cardizem Cd) 300 mg DAILY 10/27/16 12:00 10/27/16 13:21 300 MG Dobutamine HCl/ Dextrose 250 ml @ 0 mls/hr CONT PRN 10/26/16 17:00 10/29/16 03:02 10.951 MLS/HR Ferrous Sulfate (Feosol) 325 mg BIDWMEALS 10/27/16 12:00 10/28/16 17:13 325 MG Furosemide (Lasix) 60 mg 1X ONCE 10/28/16 08:00 10/28/16 08:01 DC Gabapentin (Neurontin) 300 mg BID 10/27/16 12:00 10/28/16 20:55 300 MG Heparin Sodium (Porcine) (Heparin Sodium) 2,500 unit 1X ONCE 10/27/16 10:15 10/27/16 10:16 DC 10/27/16 12:16 2,800 UNIT Heparin Sodium/ Sodium Chloride 60 unit 1X ONCE 10/27/16 10:15 10/27/16 10:16 DC 10/27/16 12:14 60 UNIT Insulin Aspart (Novolog) 11 units TIDWMEALS 10/27/16 12:00 Levothyroxine Sodium (Synthroid) 125 mcg DAILY07 10/27/16 12:00 10/29/16 06:37 125 MCG Lidocaine/Sodium Bicarbonate (Buffered Lidocaine 1%) 3 ml 1X ONCE 10/27/16 10:15 10/27/16 10:16 DC 10/27/16 12:16 3 ML Linagliptin (Tradjenta) 5 mg DAILY 10/27/16 12:00 10/28/16 09:08 5 MG Lisinopril (Prinivil) 40 mg DAILY 10/27/16 12:00 10/27/16 13:22 40 MG Methocarbamol (Robaxin) 500 mg PRN TID PRN 10/27/16 11:15 Non-Formulary Medication 1 tab BID 10/27/16 21:00 UNV Pantoprazole Sodium 40 mg 40 mg DAILYAC 10/26/16 17:00 10/28/16 09:07 40 MG Potassium Chloride (Klor-Con) 10 meq DAILYWBKFT 10/28/16 08:00 10/28/16 09:07 10 MEQ Sodium Bicarbonate 50 meq Q2HR 10/27/16 10:00 10/27/16 12:01 DC 10/27/16 12:38 50 MEQ Tamsulosin HCl (Flomax) 0.4 mg QHS 10/27/16 21:00 10/28/16 20:55 0.4 MG Vitamin D (Vitamin D3) 1,000 unit DAILY 10/27/16 12:00 10/28/16 09:08 1,000 UNIT Lab Laboratory Tests Test 10/28/16 09:14 10/28/16 12:56 10/28/16 18:07 10/29/16 04:30 Glucose (Fingerstick) 133mg/dL (70-99) 175mg/dL (70-99) 148mg/dL (70-99) White Blood Count 7.0x10^3/uL (4.0-11.0) Red Blood Count 3.46x10^6/uL (4.30-5.70) Hemoglobin 9.0g/dL (13.0-17.5) Hematocrit 27.3% (39.0-53.0) Mean Corpuscular Volume 79fL (79-100) Mean Corpuscular Hemoglobin 26pg (25-35) Mean Corpuscular Hemoglobin Concent 33g/dL (31-37) Red Cell Distribution Width 18.8% (11.5-14.5) Platelet Count 106x10^3/uL (140-400) Neutrophils (%) (Auto) 66% (31-73) Lymphocytes (%) (Auto) 26% (24-48) Monocytes (%) (Auto) 8% (0-9) Eosinophils (%) (Auto) 0% (0-3) Basophils (%) (Auto) 0% (0-3) Neutrophils # (Auto) 4.6x10^3uL (1.8-7.7) Lymphocytes # (Auto) 1.8x10^3/uL (1.0-4.8) Monocytes # (Auto) 0.5x10^3/uL (0.0-1.1) Eosinophils # (Auto) 0.0x10^3/uL (0.0-0.7) Basophils # (Auto) 0.0x10^3/uL (0.0-0.2) Sodium Level 123mmol/L (136-145) Potassium Level 4.3mmol/L (3.5-5.1) Chloride Level 90mmol/L (98-107) Carbon Dioxide Level 18mmol/L (21-32) Anion Gap 15 (6-14) Blood Urea Nitrogen 88mg/dL (8-26) Creatinine 3.0mg/dL (0.7-1.3) Estimated GFR (Cockcroft-Gault) 20.7 BUN/Creatinine Ratio 29 (6-20) Glucose Level 141mg/dL (70-99) Lactic Acid Level 1.0mmol/L (0.4-2.0) Calcium Level 7.9mg/dL (8.5-10.1) Magnesium Level 2.1mg/dL (1.8-2.4) Total Bilirubin 0.8mg/dL (0.2-1.0) Aspartate Amino Transf (AST/SGOT) 86U/L (15-37) Alanine Aminotransferase (ALT/SGPT) 50U/L (16-63) Alkaline Phosphatase 53U/L (46-116) Total Protein 6.0g/dL (6.4-8.2) Albumin 2.8g/dL (3.4-5.0) Albumin/Globulin Ratio 0.9 (1.0-1.7) AILIN MCBRIDE MD Oct 29, 2016 07:11
[2016-10-29] MEDS: SODIUM BICARB ADULT 8.4% 50 MEQ/50 ML DISP.SYRIN. IV SCH ×2 (07:40→10:14)
[2016-10-29] MEDS: PANTOPRAZOLE IV PUSH 40 MG VIAL. IVP SCH (07:42)
[2016-10-29] MEDS ORDERED: SODIUM BICARBONATE VIAL 150 MEQ in IV STERILE WATER 1,000 ML IV PRN (07:45)
[2016-10-29] MEDS ORDERED: SODIUM CHLORIDE 3 % 500 ML IV PRN (07:45)
[2016-10-29] MEDS: INSULIN ASPART 300 UNITS/3 ML INSULN.PEN SQ SCH ×3 (08:00→17:00)
[2016-10-29] MEDS: IPRATRPIUM/ALBUTEROL 0.5/2.5MG 3 ML NEBU. NEB SCH ×4 (08:48→20:02)
[2016-10-29] MEDS: LISINOPRIL 40 MG TABLET. PO SCH (09:00)
[2016-10-29] MEDS: CHOLECALCIFEROL (VITAMIN D3) 1,000 UNIT TABLET PO SCH (09:26)
[2016-10-29] MEDS: POTASSIUM CHLORIDE 10 MEQ TABLET.ER. PO SCH (09:26)
[2016-10-29] MEDS: GABAPENTIN 300 MG CAPSULE. PO SCH ×2 (09:28→20:55)
[2016-10-29] MEDS: FERROUS SULFATE 325 MG TABLET. PO SCH ×2 (09:28→17:38)
[2016-10-29] MEDS: BRIMONIDINE 0.2% OPHTH SOLUTION 5ML BOTTLE. OU SCH ×2 (09:30→20:55)
[2016-10-29] MEDS: ASPIRIN 325 MG TABLET PO SCH (09:30)
[2016-10-29] MEDS: LINAGLIPTIN 5 MG TABLET PO SCH (09:30)
--- NOTE | 2016-10-29 11:00 | RAD ---
Single AP view of the chest with comparison of 10/27/2016. Indication: Shortness of breath. Findings: Left internal jugular hemodialysis catheter is identified. There appears to be placement of a right internal jugular venous sheath which was not seen on the previous days examination. Sternotomy wires and CABG clips as well as right clavian pacemaker are identified. The heart is enlarged stable. There is mild pulmonary vascular prominence. No pneumothorax or effusion or focal consolidation. Impression: 1. Findings of very mild pulmonary vascular congestion and cardiomegaly.
[2016-10-29] MEDS ORDERED: NYSTATIN TOPICAL POWDER 15GM BOTTLE. TP PRN (11:15)
[2016-10-29] MEDS: ACETAMINOPHEN 325 MG TABLET. PO PRN ×2 (12:26→19:25)
--- NOTE | 2016-10-29 13:58 | PDOC ---
PULMONARY PROGRESS NOTES Subjective PT OFF BIPAP, SITTING UP FEELS LESS SOA Vitals Vital Signs Date Time Temp Pulse Resp B/P Pulse Ox O2 Delivery O2 Flow Rate FiO2 10/29/16 13:00 70 24 78/42 100 Ventilator 10/29/16 12:37 3.0 10/29/16 12:00 97.7 97.7 ROS: No Nausea, No Chest Pain, No Abdominal Pain, No Increase Cough Lungs: Crackles Cardiovascular: S1, S2 Abdomen: Soft Neuro Exam: Alert Extremities: No Edema Skin: Warm Labs Laboratory Tests Test 10/27/16 15:00 10/27/16 17:01 10/28/16 05:00 10/28/16 09:14 Urine Collection Type Unknown Urine Color Yellow Urine Clarity Turbid Urine pH 5.5 Urine Specific [place] 1.015 Urine Protein 30mg/dL (NEG-TRACE) Urine Glucose (UA) Negativemg/dL (NEG) Urine Ketones (Stick) Negativemg/dL (NEG) Urine Blood Large (NEG) Urine Nitrite Negative (NEG) Urine Bilirubin Negative (NEG) Urine Urobilinogen Dipstick 0.2mg/dL (0.2 mg/dL) Urine Leukocyte Esterase Trace (NEG) Urine RBC 20-40/HPF (0-2) Urine WBC 0/HPF (0-4) Urine Amorphous Sediment Present/HPF Urine Bacteria 0/HPF (0-FEW) Urine Hyaline Casts Many/HPF Urine Granular Casts Moderate/HPF Urine Mucus Marked/LPF Glucose (Fingerstick) 162mg/dL (70-99) 133mg/dL (70-99) White Blood Count 6.8x10^3/uL (4.0-11.0) Red Blood Count 3.33x10^6/uL (4.30-5.70) Hemoglobin 8.9g/dL (13.0-17.5) Hematocrit 26.1% (39.0-53.0) Mean Corpuscular Volume 78fL (79-100) Mean Corpuscular Hemoglobin 27pg (25-35) Mean Corpuscular Hemoglobin Concent 34g/dL (31-37) Red Cell Distribution Width 19.0% (11.5-14.5) Platelet Count 99x10^3/uL (140-400) Neutrophils (%) (Auto) 69% (31-73) Lymphocytes (%) (Auto) 22% (24-48) Monocytes (%) (Auto) 9% (0-9) Eosinophils (%) (Auto) 0% (0-3) Basophils (%) (Auto) 0% (0-3) Neutrophils # (Auto) 4.6x10^3uL (1.8-7.7) Lymphocytes # (Auto) 1.5x10^3/uL (1.0-4.8) Monocytes # (Auto) 0.6x10^3/uL (0.0-1.1) Eosinophils # (Auto) 0.0x10^3/uL (0.0-0.7) Basophils # (Auto) 0.0x10^3/uL (0.0-0.2) Lactic Acid Level 1.8mmol/L (0.4-2.0) Test 10/28/16 12:56 10/28/16 18:07 10/29/16 04:30 10/29/16 05:00 Glucose (Fingerstick) 175mg/dL (70-99) 148mg/dL (70-99) White Blood Count 7.0x10^3/uL (4.0-11.0) Red Blood Count 3.46x10^6/uL (4.30-5.70) Hemoglobin 9.0g/dL (13.0-17.5) Hematocrit 27.3% (39.0-53.0) Mean Corpuscular Volume 79fL (79-100) Mean Corpuscular Hemoglobin 26pg (25-35) Mean Corpuscular Hemoglobin Concent 33g/dL (31-37) Red Cell Distribution Width 18.8% (11.5-14.5) Platelet Count 106x10^3/uL (140-400) Neutrophils (%) (Auto) 66% (31-73) Lymphocytes (%) (Auto) 26% (24-48) Monocytes (%) (Auto) 8% (0-9) Eosinophils (%) (Auto) 0% (0-3) Basophils (%) (Auto) 0% (0-3) Neutrophils # (Auto) 4.6x10^3uL (1.8-7.7) Lymphocytes # (Auto) 1.8x10^3/uL (1.0-4.8) Monocytes # (Auto) 0.5x10^3/uL (0.0-1.1) Eosinophils # (Auto) 0.0x10^3/uL (0.0-0.7) Basophils # (Auto) 0.0x10^3/uL (0.0-0.2) Sodium Level 123mmol/L (136-145) Potassium Level 4.3mmol/L (3.5-5.1) Chloride Level 90mmol/L (98-107) Carbon Dioxide Level 18mmol/L (21-32) Anion Gap 15 (6-14) Blood Urea Nitrogen 88mg/dL (8-26) Creatinine 3.0mg/dL (0.7-1.3) Estimated GFR (Cockcroft-Gault) 20.7 BUN/Creatinine Ratio 29 (6-20) Glucose Level 141mg/dL (70-99) Serum Osmolality 285mOsm/Kg (279-304) Lactic Acid Level 1.0mmol/L (0.4-2.0) Calcium Level 7.9mg/dL (8.5-10.1) Magnesium Level 2.1mg/dL (1.8-2.4) Total Bilirubin 0.8mg/dL (0.2-1.0) Aspartate Amino Transf (AST/SGOT) 86U/L (15-37) Alanine Aminotransferase (ALT/SGPT) 50U/L (16-63) Alkaline Phosphatase 53U/L (46-116) Total Protein 6.0g/dL (6.4-8.2) Albumin 2.8g/dL (3.4-5.0) Albumin/Globulin Ratio 0.9 (1.0-1.7) Uric Acid 12.7mg/dL (3.5-7.2) Test 10/29/16 07:50 10/29/16 08:00 10/29/16 09:03 10/29/16 11:36 Urine Random Sodium 35mmol/L (Not Estab.) Sodium Level 125mmol/L (136-145) 125mmol/L (136-145) Thyroid Stimulating Hormone (TSH) 3.141uIU/mL (0.358-3.74) Glucose (Fingerstick) 135mg/dL (70-99) Test 10/29/16 12:29 Glucose (Fingerstick) 144mg/dL (70-99) Laboratory Tests Test 10/28/16 18:07 10/29/16 04:30 10/29/16 05:00 10/29/16 07:50 Glucose (Fingerstick) 148mg/dL (70-99) White Blood Count 7.0x10^3/uL (4.0-11.0) Red Blood Count 3.46x10^6/uL (4.30-5.70) Hemoglobin 9.0g/dL (13.0-17.5) Hematocrit 27.3% (39.0-53.0) Mean Corpuscular Volume 79fL (79-100) Mean Corpuscular Hemoglobin 26pg (25-35) Mean Corpuscular Hemoglobin Concent 33g/dL (31-37) Red Cell Distribution Width 18.8% (11.5-14.5) Platelet Count 106x10^3/uL (140-400) Neutrophils (%) (Auto) 66% (31-73) Lymphocytes (%) (Auto) 26% (24-48) Monocytes (%) (Auto) 8% (0-9) Eosinophils (%) (Auto) 0% (0-3) Basophils (%) (Auto) 0% (0-3) Neutrophils # (Auto) 4.6x10^3uL (1.8-7.7) Lymphocytes # (Auto) 1.8x10^3/uL (1.0-4.8) Monocytes # (Auto) 0.5x10^3/uL (0.0-1.1) Eosinophils # (Auto) 0.0x10^3/uL (0.0-0.7) Basophils # (Auto) 0.0x10^3/uL (0.0-0.2) Sodium Level 123mmol/L (136-145) Potassium Level 4.3mmol/L (3.5-5.1) Chloride Level 90mmol/L (98-107) Carbon Dioxide Level 18mmol/L (21-32) Anion Gap 15 (6-14) Blood Urea Nitrogen 88mg/dL (8-26) Creatinine 3.0mg/dL (0.7-1.3) Estimated GFR (Cockcroft-Gault) 20.7 BUN/Creatinine Ratio 29 (6-20) Glucose Level 141mg/dL (70-99) Serum Osmolality 285mOsm/Kg (279-304) Lactic Acid Level 1.0mmol/L (0.4-2.0) Calcium Level 7.9mg/dL (8.5-10.1) Magnesium Level 2.1mg/dL (1.8-2.4) Total Bilirubin 0.8mg/dL (0.2-1.0) Aspartate Amino Transf (AST/SGOT) 86U/L (15-37) Alanine Aminotransferase (ALT/SGPT) 50U/L (16-63) Alkaline Phosphatase 53U/L (46-116) Total Protein 6.0g/dL (6.4-8.2) Albumin 2.8g/dL (3.4-5.0) Albumin/Globulin Ratio 0.9 (1.0-1.7) Uric Acid 12.7mg/dL (3.5-7.2) Urine Random Sodium 35mmol/L (Not Estab.) Test 10/29/16 08:00 10/29/16 09:03 10/29/16 11:36 10/29/16 12:29 Sodium Level 125mmol/L (136-145) 125mmol/L (136-145) Thyroid Stimulating Hormone (TSH) 3.141uIU/mL (0.358-3.74) Glucose (Fingerstick) 135mg/dL (70-99) 144mg/dL (70-99) Medications Active Scripts Medications Dose Route/Sig Days Date Category Tamsulosin Hcl 0.4 Mg Cap.er.24h 0.4 Mg PO QHS 10/27/16 Reported Onglyza (Saxagliptin Hcl) 5 Mg Tablet 1 Tab PO DAILY 10/27/16 Reported Crestor (Rosuvastatin Calcium) 10 Mg Tablet 0.5 Tab PO DAILY 10/27/16 Reported Potassium Chloride 20 Meq Tablet.er 10 Meq PO DAILY 10/27/16 Reported Omeprazole 20 Mg Tablet.dr 1 Tab PO BID 10/27/16 Reported Nitrostat (Nitroglycerin) 0.3 Mg Tab.subl 0.3 Mg SL PRN Q5MIN PRN 10/27/16 Reported Methocarbamol 500 Mg Tablet 500 Mg PO PRN TID PRN 10/27/16 Reported [place] Ultra Strength (Menthol) 1 Each Adh..patch 1 Each TP TID 10/27/16 Reported Lisinopril 40 Mg Tablet 1 Tab PO DAILY 10/27/16 Reported Levothyroxine Sodium 125 Mcg Tablet 1 Tab PO DAILY 10/27/16 Reported Novolog Flexpen (Insulin Aspart) 100 Unit/1 Ml Insuln.pen 11 Unit SQ TIDWMEALS 10/27/16 Reported Gabapentin 300 Mg Capsule 300 Mg PO TID 10/27/16 Reported Furosemide 40 Mg Tablet 40 Mg PO BID 10/27/16 Reported Ferrous Sulfate 324 Mg Tablet.dr 324 Mg PO BID 10/27/16 Reported Cardizem Cd (Diltiazem Hcl) 300 Mg Cap.er.24h 300 Mg PO DAILY 10/27/16 Reported Vitamin D3 (Cholecalciferol (Vitamin D3)) 1,000 Unit Tablet 1 Tab PO DAILY 10/27/16 Reported Refresh Optive Advanced Drops (Carboxymethyl/Glycerin/Poly80) 10 Ml Drops 1 Drop OP PRN QID PRN 10/27/16 Reported Alphagan P (Brimonidine Tartrate) 5 Ml Drops 1 Drop EACHEYE BID 10/27/16 Reported Aspirin 325 Mg Tablet 1 Tab PO DAILY 10/27/16 Reported Albuterol Sulfate Conc Neb Soln (Albuterol Sulfate) 2.5 Mg/0.5 Ml Vial.neb 1 Vial NEB Q4HRS 10/27/16 Reported Combivent Respimat Inhal (Ipratropium/Albuterol Sulfate) 4 Gm Aer.w.adap 1 Inh IH QID 10/27/16 Reported Impression . 1. Acute hypoxemic respiratory failure/AECOPD 2. Acute on chronic kidney failure. 3. Chronic heart failure, possible acute systolic heart failure. 4. Cardiomyopathy. 5. Status post pacemaker. 6. Coronary artery disease, status post coronary artery bypass grafting. 7. Hypertension. 8. Obstructive sleep apnea. 9. Acute on chronic blood-loss anemia. 10. Metabolic acidosis, suspect secondary to renal tubular acidosis, chronic kidney disease. Plan . FEELS BETTER WILL TREAT FOR AECOPD PRN BIPAP 1. We will switch from CPAP to BiPAP with oxygen supplementation. 2. Venous Dopplers of the lower extremities, PENDING 3. Follow card input 4. No need for antibiotics. 5. Monitor hemoglobin and hematocrit. JANEE MAYBERRY MD Oct 29, 2016 13:58
--- NOTE | 2016-10-29 14:44 | PDOC ---
PROGRESS NOTES Chief Complaint Chief Complaint GI bleed Critical Hypotention CHF PPM CABG Diabetes, Hypertension, Hyperlipidemia. Debility History of Present Illness History of Present Illness Mr. Hanks was up in a chair and was able to converse with us today. He had his daughter and grandson there as well, and we spoke about the case with them. His SpO2% was at 100, and he reports he was feeling good without any major difficulties with breathing. He had a CPAP at his bedside. . Vitals Vitals Vital Signs Date Time Temp Pulse Resp B/P Pulse Ox O2 Delivery O2 Flow Rate FiO2 10/29/16 13:00 70 24 78/42 100 Ventilator 10/29/16 12:37 3.0 10/29/16 12:00 97.7 97.7 Physical Exam General: Alert, Cooperative Heart: Normal S1, Normal S2, No murmurs Lungs: Clear, Other (No chest retractions or accessory muscle use were present. ) Abdomen: Normal bowel sounds, Soft Extremities: No clubbing, Normal pulses Skin: No rashes, No breakdown Labs LABS Laboratory Tests Test 10/28/16 18:07 10/29/16 04:30 10/29/16 05:00 10/29/16 07:50 Glucose (Fingerstick) 148mg/dL (70-99) White Blood Count 7.0x10^3/uL (4.0-11.0) Red Blood Count 3.46x10^6/uL (4.30-5.70) Hemoglobin 9.0g/dL (13.0-17.5) Hematocrit 27.3% (39.0-53.0) Mean Corpuscular Volume 79fL (79-100) Mean Corpuscular Hemoglobin 26pg (25-35) Mean Corpuscular Hemoglobin Concent 33g/dL (31-37) Red Cell Distribution Width 18.8% (11.5-14.5) Platelet Count 106x10^3/uL (140-400) Neutrophils (%) (Auto) 66% (31-73) Lymphocytes (%) (Auto) 26% (24-48) Monocytes (%) (Auto) 8% (0-9) Eosinophils (%) (Auto) 0% (0-3) Basophils (%) (Auto) 0% (0-3) Neutrophils # (Auto) 4.6x10^3uL (1.8-7.7) Lymphocytes # (Auto) 1.8x10^3/uL (1.0-4.8) Monocytes # (Auto) 0.5x10^3/uL (0.0-1.1) Eosinophils # (Auto) 0.0x10^3/uL (0.0-0.7) Basophils # (Auto) 0.0x10^3/uL (0.0-0.2) Sodium Level 123mmol/L (136-145) Potassium Level 4.3mmol/L (3.5-5.1) Chloride Level 90mmol/L (98-107) Carbon Dioxide Level 18mmol/L (21-32) Anion Gap 15 (6-14) Blood Urea Nitrogen 88mg/dL (8-26) Creatinine 3.0mg/dL (0.7-1.3) Estimated GFR (Cockcroft-Gault) 20.7 BUN/Creatinine Ratio 29 (6-20) Glucose Level 141mg/dL (70-99) Serum Osmolality 285mOsm/Kg (279-304) Lactic Acid Level 1.0mmol/L (0.4-2.0) Calcium Level 7.9mg/dL (8.5-10.1) Magnesium Level 2.1mg/dL (1.8-2.4) Total Bilirubin 0.8mg/dL (0.2-1.0) Aspartate Amino Transf (AST/SGOT) 86U/L (15-37) Alanine Aminotransferase (ALT/SGPT) 50U/L (16-63) Alkaline Phosphatase 53U/L (46-116) Total Protein 6.0g/dL (6.4-8.2) Albumin 2.8g/dL (3.4-5.0) Albumin/Globulin Ratio 0.9 (1.0-1.7) Uric Acid 12.7mg/dL (3.5-7.2) Urine Random Sodium 35mmol/L (Not Estab.) Test 10/29/16 08:00 10/29/16 09:03 10/29/16 11:36 10/29/16 12:29 Sodium Level 125mmol/L (136-145) 125mmol/L (136-145) Thyroid Stimulating Hormone (TSH) 3.141uIU/mL (0.358-3.74) Glucose (Fingerstick) 135mg/dL (70-99) 144mg/dL (70-99) Review of Systems Review of Systems Mr. Hanks does say after prompting from his family that he has experienced chest pain recently. However, that pain has not persisted. He has not had any problems with breathing. Assessment and Plan Assessmemt and Plan Problems Medical Problems: (1) CHF exacerbation Status: Acute Assessment: Mr. Hanks is a 71 year old male who presented as a transfer for CHF. GI bleed Critical Hypotention CHF PPM CABG Diabetes, Hypertension, Hyperlipidemia. Debility Plan: 1. Continue breathing treatments 2. Continue home medications 3. Continue linagliptin for blood glucose management 4. PT/OT 5. Recheck labs 6. Monitor vitals for hypotension 7. Monitor hyponatremia 8. Appreciate subspecialists' input Problems: Comment Review of Relevant I have reviewed the following items dorian (where applicable) has been applied. Labs Laboratory Tests Test 10/27/16 15:00 10/27/16 17:01 10/28/16 05:00 10/28/16 09:14 Urine Collection Type Unknown Urine Color Yellow Urine Clarity Turbid Urine pH 5.5 Urine Specific Deport 1.015 Urine Protein 30mg/dL (NEG-TRACE) Urine Glucose (UA) Negativemg/dL (NEG) Urine Ketones (Stick) Negativemg/dL (NEG) Urine Blood Large (NEG) Urine Nitrite Negative (NEG) Urine Bilirubin Negative (NEG) Urine Urobilinogen Dipstick 0.2mg/dL (0.2 mg/dL) Urine Leukocyte Esterase Trace (NEG) Urine RBC 20-40/HPF (0-2) Urine WBC 0/HPF (0-4) Urine Amorphous Sediment Present/HPF Urine Bacteria 0/HPF (0-FEW) Urine Hyaline Casts Many/HPF Urine Granular Casts Moderate/HPF Urine Mucus Marked/LPF Glucose (Fingerstick) 162mg/dL (70-99) 133mg/dL (70-99) White Blood Count 6.8x10^3/uL (4.0-11.0) Red Blood Count 3.33x10^6/uL (4.30-5.70) Hemoglobin 8.9g/dL (13.0-17.5) Hematocrit 26.1% (39.0-53.0) Mean Corpuscular Volume 78fL (79-100) Mean Corpuscular Hemoglobin 27pg (25-35) Mean Corpuscular Hemoglobin Concent 34g/dL (31-37) Red Cell Distribution Width 19.0% (11.5-14.5) Platelet Count 99x10^3/uL (140-400) Neutrophils (%) (Auto) 69% (31-73) Lymphocytes (%) (Auto) 22% (24-48) Monocytes (%) (Auto) 9% (0-9) Eosinophils (%) (Auto) 0% (0-3) Basophils (%) (Auto) 0% (0-3) Neutrophils # (Auto) 4.6x10^3uL (1.8-7.7) Lymphocytes # (Auto) 1.5x10^3/uL (1.0-4.8) Monocytes # (Auto) 0.6x10^3/uL (0.0-1.1) Eosinophils # (Auto) 0.0x10^3/uL (0.0-0.7) Basophils # (Auto) 0.0x10^3/uL (0.0-0.2) Lactic Acid Level 1.8mmol/L (0.4-2.0) Test 10/28/16 12:56 10/28/16 18:07 10/29/16 04:30 10/29/16 05:00 Glucose (Fingerstick) 175mg/dL (70-99) 148mg/dL (70-99) White Blood Count 7.0x10^3/uL (4.0-11.0) Red Blood Count 3.46x10^6/uL (4.30-5.70) Hemoglobin 9.0g/dL (13.0-17.5) Hematocrit 27.3% (39.0-53.0) Mean Corpuscular Volume 79fL (79-100) Mean Corpuscular Hemoglobin 26pg (25-35) Mean Corpuscular Hemoglobin Concent 33g/dL (31-37) Red Cell Distribution Width 18.8% (11.5-14.5) Platelet Count 106x10^3/uL (140-400) Neutrophils (%) (Auto) 66% (31-73) Lymphocytes (%) (Auto) 26% (24-48) Monocytes (%) (Auto) 8% (0-9) Eosinophils (%) (Auto) 0% (0-3) Basophils (%) (Auto) 0% (0-3) Neutrophils # (Auto) 4.6x10^3uL (1.8-7.7) Lymphocytes # (Auto) 1.8x10^3/uL (1.0-4.8) Monocytes # (Auto) 0.5x10^3/uL (0.0-1.1) Eosinophils # (Auto) 0.0x10^3/uL (0.0-0.7) Basophils # (Auto) 0.0x10^3/uL (0.0-0.2) Sodium Level 123mmol/L (136-145) Potassium Level 4.3mmol/L (3.5-5.1) Chloride Level 90mmol/L (98-107) Carbon Dioxide Level 18mmol/L (21-32) Anion Gap 15 (6-14) Blood Urea Nitrogen 88mg/dL (8-26) Creatinine 3.0mg/dL (0.7-1.3) Estimated GFR (Cockcroft-Gault) 20.7 BUN/Creatinine Ratio 29 (6-20) Glucose Level 141mg/dL (70-99) Serum Osmolality 285mOsm/Kg (279-304) Lactic Acid Level 1.0mmol/L (0.4-2.0) Calcium Level 7.9mg/dL (8.5-10.1) Magnesium Level 2.1mg/dL (1.8-2.4) Total Bilirubin 0.8mg/dL (0.2-1.0) Aspartate Amino Transf (AST/SGOT) 86U/L (15-37) Alanine Aminotransferase (ALT/SGPT) 50U/L (16-63) Alkaline Phosphatase 53U/L (46-116) Total Protein 6.0g/dL (6.4-8.2) Albumin 2.8g/dL (3.4-5.0) Albumin/Globulin Ratio 0.9 (1.0-1.7) Uric Acid 12.7mg/dL (3.5-7.2) Test 10/29/16 07:50 10/29/16 08:00 10/29/16 09:03 10/29/16 11:36 Urine Random Sodium 35mmol/L (Not Estab.) Sodium Level 125mmol/L (136-145) 125mmol/L (136-145) Thyroid Stimulating Hormone (TSH) 3.141uIU/mL (0.358-3.74) Glucose (Fingerstick) 135mg/dL (70-99) Test 10/29/16 12:29 Glucose (Fingerstick) 144mg/dL (70-99) Laboratory Tests Test 10/28/16 18:07 10/29/16 04:30 10/29/16 05:00 10/29/16 07:50 Glucose (Fingerstick) 148mg/dL (70-99) White Blood Count 7.0x10^3/uL (4.0-11.0) Red Blood Count 3.46x10^6/uL (4.30-5.70) Hemoglobin 9.0g/dL (13.0-17.5) Hematocrit 27.3% (39.0-53.0) Mean Corpuscular Volume 79fL (79-100) Mean Corpuscular Hemoglobin 26pg (25-35) Mean Corpuscular Hemoglobin Concent 33g/dL (31-37) Red Cell Distribution Width 18.8% (11.5-14.5) Platelet Count 106x10^3/uL (140-400) Neutrophils (%) (Auto) 66% (31-73) Lymphocytes (%) (Auto) 26% (24-48) Monocytes (%) (Auto) 8% (0-9) Eosinophils (%) (Auto) 0% (0-3) Basophils (%) (Auto) 0% (0-3) Neutrophils # (Auto) 4.6x10^3uL (1.8-7.7) Lymphocytes # (Auto) 1.8x10^3/uL (1.0-4.8) Monocytes # (Auto) 0.5x10^3/uL (0.0-1.1) Eosinophils # (Auto) 0.0x10^3/uL (0.0-0.7) Basophils # (Auto) 0.0x10^3/uL (0.0-0.2) Sodium Level 123mmol/L (136-145) Potassium Level 4.3mmol/L (3.5-5.1) Chloride Level 90mmol/L (98-107) Carbon Dioxide Level 18mmol/L (21-32) Anion Gap 15 (6-14) Blood Urea Nitrogen 88mg/dL (8-26) Creatinine 3.0mg/dL (0.7-1.3) Estimated GFR (Cockcroft-Gault) 20.7 BUN/Creatinine Ratio 29 (6-20) Glucose Level 141mg/dL (70-99) Serum Osmolality 285mOsm/Kg (279-304) Lactic Acid Level 1.0mmol/L (0.4-2.0) Calcium Level 7.9mg/dL (8.5-10.1) Magnesium Level 2.1mg/dL (1.8-2.4) Total Bilirubin 0.8mg/dL (0.2-1.0) Aspartate Amino Transf (AST/SGOT) 86U/L (15-37) Alanine Aminotransferase (ALT/SGPT) 50U/L (16-63) Alkaline Phosphatase 53U/L (46-116) Total Protein 6.0g/dL (6.4-8.2) Albumin 2.8g/dL (3.4-5.0) Albumin/Globulin Ratio 0.9 (1.0-1.7) Uric Acid 12.7mg/dL (3.5-7.2) Urine Random Sodium 35mmol/L (Not Estab.) Test 10/29/16 08:00 10/29/16 09:03 10/29/16 11:36 10/29/16 12:29 Sodium Level 125mmol/L (136-145) 125mmol/L (136-145) Thyroid Stimulating Hormone (TSH) 3.141uIU/mL (0.358-3.74) Glucose (Fingerstick) 135mg/dL (70-99) 144mg/dL (70-99) Microbiology 10/27/16 Urine Culture - Final, Complete 10/27/16 Urine Culture Result 1 (JANEL) - Final, Complete Medications Current Medications Pantoprazole Sodium 40 mg 40 mg DAILYAC IVP Last administered on 10/29/16t 07: 42; Start 10/26/16 at 17:00 Dobutamine HCl/ Dextrose 250 ml @ 0 mls/hr CONT PRN IV SEE I/O RECORD Last administered on 10/29/16 03:02; Start 10/26/16 at 17:00 Furosemide (Lasix) 60 mg 1X ONCE IVP Last administered on 10/27/16 08:15; Start 10/27/16 at 08:30; Stop 10/27/16 at 08:31; Status DC Sodium Bicarbonate 50 meq Q2HR IV Last administered on 10/27/16 12:38; Start 10/27/16 at 10:00; Stop 10/27/16 at 12:01; Status DC Albuterol/ Ipratropium (Duoneb) 3 ml RTQID NEB Last administered on 10/29/16 12:37; Start 10/27/16 at 12:00 Heparin Sodium (Porcine) (Heparin Sodium) 10,000 unit STK-MED ONCE .ROUTE ; Start 10/27/16 at 10:01; Stop 10/27/16 at 10:02; Status DC Lidocaine/Sodium Bicarbonate 20 ml 20 ml STK-MED ONCE IJ ; Start 10/27/16 at 10: 01; Stop 10/27/16 at 10:02; Status DC Heparin Sodium/ Sodium Chloride 500 ml @ As Directed STK-MED ONCE .ROUTE ; Start 10/27/16 at 10:01; Stop 10/27/16 at 10:02; Status DC Lidocaine/Sodium Bicarbonate (Buffered Lidocaine 1%) 3 ml 1X ONCE IJ Last administered on 10/27/16 12:16; Start 10/27/16 at 10:15; Stop 10/27/16 at 10:16 ; Status DC Heparin Sodium/ Sodium Chloride 60 unit 1X ONCE IV Last administered on 12:14; Start 10/27/16 at 10:15; Stop 10/27/16 at 10:16; Status DC Heparin Sodium (Porcine) (Heparin Sodium) 2,500 unit 1X ONCE INT CAT Last administered on 10/27/16 12:16; Start 10/27/16 at 10:15; Stop 10/27/16 at 10:16 ; Status DC Aspirin (Krystian Aspirin) 325 mg DAILY PO Last administered on 10/29/16 09:30; Start 10/27/16 at 12:00 Vitamin D (Vitamin D3) 1,000 unit DAILY PO Last administered on 10/29/16 09:26 ; Start 10/27/16 at 12:00 Diltiazem HCl (Cardizem Cd) 300 mg DAILY PO Last administered on 10/29/16 09: 25; Start 10/27/16 at 12:00 Furosemide (Lasix) 40 mg [id number] PO Last administered on 10/28/16 17:13; Start 10/27/16 at 12:00; Stop 10/29/16 at 07:12; Status DC Insulin Aspart (Novolog) 11 units TIDWMEALS SQ ; Start 10/27/16 at 12:00 Levothyroxine Sodium (Synthroid) 125 mcg DAILY07 PO Last administered on 06:37; Start 10/27/16 at 12:00 Lisinopril (Prinivil) 40 mg DAILY PO Last administered on 10/27/16 13:22; Start 10/27/16 at 12:00 Methocarbamol (Robaxin) 500 mg PRN TID PRN PO MUSCLE SPASMS; Start 10/27/16 at 11:15 Tamsulosin HCl (Flomax) 0.4 mg QHS PO Last administered on 10/28/16 20:55; Start 10/27/16 at 21:00 Albuterol Sulfate (Ventolin Neb Soln) 2.5 mg PRN Q4HRS PRN NEB SHORTNESS OF BREATH; Start 10/27/16 at 11:30 Brimonidine Tartrate (Alphagan) 1 drop BID OU Last administered on 10/29/16 09 :30; Start 10/27/16 at 12:00 Artificial Tears (Artificial Tears) 1 drop PRN Q15MIN PRN OU DRY EYE; Start at 11:30 Ferrous Sulfate (Feosol) 325 mg BIDWMEALS PO Last administered on 10/29/16 09: 28; Start 10/27/16 at 12:00 Gabapentin (Neurontin) 300 mg BID PO Last administered on 10/29/16 09:28; Start 10/27/16 at 12:00 Non-Formulary Medication 1 inh QID IH ; Start 10/27/16 at 13:00; Status UNV Non-Formulary Medication 1 each TID TP ; Start 10/27/16 at 14:00; Status UNV Non-Formulary Medication 1 tab BID PO ; Start 10/27/16 at 21:00; Status UNV Potassium Chloride (Klor-Con) 10 meq [id number] PO Last administered on 09:26; Start 10/28/16 at 08:00 Atorvastatin Calcium (Lipitor) 20 mg QHS PO Last administered on 10/28/16 20: 55; Start 10/27/16 at 21:00 Linagliptin (Tradjenta) 5 mg DAILY PO Last administered on 10/29/16 09:30; Start 10/27/16 at 12:00 Furosemide (Lasix) 60 mg 1X ONCE IVP ; Start 10/28/16 at 08:00; Stop 10/28/16 at 08:01; Status DC Sodium Bicarbonate 50 meq 50 meq Q2HR IV Last administered on 10/29/16 10:14; Start 10/29/16 at 08:00; Stop 10/29/16 at 10:01; Status DC Sodium Bicarbonate 150 meq/Sterile Water 1,150 ml @ 80 mls/hr [id number] PRN IV . ; Start 10/29/16 at 07:45 Sodium Chloride (Hypertonic Saline) 500 ml @ 30 mls/hr CONT PRN PRN IV see comments; Start 10/29/16 at 07:45 Acetaminophen (Tylenol) 650 mg PRN Q6HRS PRN PO PAIN Last administered on 12:26; Start 10/29/16 at 11:15 Nystatin (Nystop) 1 summer TID PRN PRN TP REDNESS; Start 10/29/16 at 11:15 Multi-Ingredient Ointment (Analgesic [place]) 1 summer PRN QID PRN TP MUSCLE PAIN; Start 10/29/16 at 11:15 Active Scripts Active Reported Tamsulosin Hcl 0.4 Mg Cap.er.24h 0.4 Mg PO QHS Onglyza (Saxagliptin Hcl) 5 Mg Tablet 1 Tab PO DAILY Crestor (Rosuvastatin Calcium) 10 Mg Tablet 0.5 Tab PO DAILY Potassium Chloride 20 Meq Tablet.er 10 Meq PO DAILY Omeprazole 20 Mg Tablet.dr 1 Tab PO BID Nitrostat (Nitroglycerin) 0.3 Mg Tab.subl 0.3 Mg SL PRN Q5MIN PRN Methocarbamol 500 Mg Tablet 500 Mg PO PRN TID PRN [place] Ultra Strength (Menthol) 1 Each Adh..patch 1 Each TP TID Lisinopril 40 Mg Tablet 1 Tab PO DAILY Levothyroxine Sodium 125 Mcg Tablet 1 Tab PO DAILY Novolog Flexpen (Insulin Aspart) 100 Unit/1 Ml Insuln.pen 11 Unit SQ TIDWMEALS Gabapentin 300 Mg Capsule 300 Mg PO TID Furosemide 40 Mg Tablet 40 Mg PO BID Ferrous Sulfate 324 Mg Tablet.dr 324 Mg PO BID Cardizem Cd (Diltiazem Hcl) 300 Mg Cap.er.24h 300 Mg PO DAILY Vitamin D3 (Cholecalciferol (Vitamin D3)) 1,000 Unit Tablet 1 Tab PO DAILY Refresh Optive Advanced Drops (Carboxymethyl/Glycerin/Poly80) 10 Ml Drops 1 Drop OP PRN QID PRN Alphagan P (Brimonidine Tartrate) 5 Ml Drops 1 Drop EACHEYE BID Aspirin 325 Mg Tablet 1 Tab PO DAILY Albuterol Sulfate Conc Neb Soln (Albuterol Sulfate) 2.5 Mg/0.5 Ml Vial.neb 1 Vial NEB Q4HRS Combivent Respimat Inhal (Ipratropium/Albuterol Sulfate) 4 Gm Aer.w.adap 1 Inh IH QID Vitals/I & O Vital Sign - Last 24 Hours 10/28/16 10/28/16 10/28/16 10/28/16 15:00 16:00 16:00 16:17 Temp 98.2 98.2 Pulse 60 60 Resp 22 27 B/P 116/50 130/48 Pulse Ox 100 97 97 O2 Delivery Nasal Cannula Nasal Cannula Nasal Cannula Nasal Cannula O2 Flow Rate 3.5 3.5 3.5 3.0 10/28/16 10/28/16 10/28/16 10/28/16 17:00 18:00 19:00 19:30 Pulse 60 64 63 Resp 30 34 26 B/P 111/47 106/51 121/48 Pulse Ox 97 98 98 O2 Delivery Nasal Cannula Nasal Cannula Nasal Cannula Nasal Cannula O2 Flow Rate 3.5 3.5 3.5 3.5 10/28/16 10/28/16 10/28/16 10/28/16 19:46 20:00 21:00 21:10 Temp 99.0 99.0 Pulse 63 72 Resp 28 28 B/P 147/59 137/56 Pulse Ox 99 100 100 100 O2 Delivery BiPAP/CPAP BiPAP/CPAP BiPAP/CPAP BiPAP/CPAP 10/28/16 10/28/16 10/28/16 10/29/16 22:00 23:00 23:08 00:00 Temp 99.3 99.3 Pulse 63 63 64 Resp 28 28 26 B/P 106/52 140/56 124/51 Pulse Ox 100 100 100 100 O2 Delivery BiPAP/CPAP BiPAP/CPAP BiPAP/CPAP BiPAP/CPAP 10/29/16 10/29/16 10/29/16 10/29/16 00:00 01:00 02:00 03:00 Pulse 67 67 67 Resp B/P 111/48 99/46 126/84 Pulse Ox 97 97 98 O2 Delivery Bi-pap Nasal Cannula Nasal Cannula Nasal Cannula O2 Flow Rate 3.5 3.5 3.5 10/29/16 10/29/16 10/29/16 10/29/16 03:52 04:00 05:00 06:00 Temp 99.1 99.1 Pulse 66 67 67 Resp 26 B/P 126/51 117/49 121/51 Pulse Ox 98 97 99 O2 Delivery Nasal Cannula Nasal Cannula Nasal Cannula Nasal Cannula O2 Flow Rate 3.5 3.5 3.5 3.5 10/29/16 10/29/16 10/29/16 10/29/16 07:00 08:00 08:00 08:10 Temp 99.1 99.1 Pulse 67 71 Resp 31 B/P 131/54 133/51 Pulse Ox 98 95 98 O2 Delivery Nasal Cannula Nasal Cannula Nasal Cannula O2 Flow Rate 3.5 3.5 3.5 3.0 10/29/16 10/29/16 10/29/16 10/29/16 09:00 09:00 09:25 10:00 Pulse 67 66 67 66 Resp 28 B/P 127/53 120/52 120/52 127/53 Pulse Ox 99 97 O2 Delivery Nasal Cannula Nasal Cannula O2 Flow Rate 3.5 3.5 10/29/16 10/29/16 10/29/16 10/29/16 11:00 12:00 12:00 12:37 Temp 97.7 97.7 Pulse 71 70 Resp 22 21 B/P 108/50 101/47 Pulse Ox 97 96 96 O2 Delivery Nasal Cannula Nasal Cannula Nasal Cannula Nasal Cannula O2 Flow Rate 3.5 3.5 3.5 3.0 10/29/16 13:00 Pulse 70 Resp 24 B/P 78/42 Pulse Ox 100 O2 Delivery Ventilator Intake and Output 10/28/16 10/28/16 10/29/16 15:00 23:00 07:00 Intake Total 896 ml 141 ml Output Total 380 ml 862 ml 1100 ml Balance -380 ml 34 ml -959 ml ARGENIS BURT III DO Oct 29, 2016 14:44
--- NOTE | 2016-10-29 15:26 | PDOC ---
PROGRESS NOTES Subjective Subjective Patient up in chair. No new complaints. BP has been labile. Objective Objective Vital Signs Date Time Temp Pulse Resp B/P Pulse Ox O2 Delivery O2 Flow Rate FiO2 10/29/16 13:00 70 24 78/42 100 Ventilator 10/29/16 12:37 3.0 10/29/16 12:00 97.7 97.7 Intake and Output 10/29/16 07:00 Intake Total 1037 ml Output Total 2342 ml Balance -1305 ml Intake Oral 750 ml IV Total 287 ml Output Urine Total 2342 ml # Bowel Movements 1 Physical Exam Physical Exam Few Rales. No changes in cardiac exam. Assessment Assessment Patient seems to be doing a little better. I agree with present plan. Waiting to see if a source of bleeding is identified. Problems Medical Problems: (1) CHF exacerbation Status: Acute Comment Review of Relevant I have reviewed the following items dorian (where applicable) has been applied. Labs Laboratory Tests Test 10/27/16 17:01 10/28/16 05:00 10/28/16 09:14 10/28/16 12:56 Glucose (Fingerstick) 162mg/dL (70-99) 133mg/dL (70-99) 175mg/dL (70-99) White Blood Count 6.8x10^3/uL (4.0-11.0) Red Blood Count 3.33x10^6/uL (4.30-5.70) Hemoglobin 8.9g/dL (13.0-17.5) Hematocrit 26.1% (39.0-53.0) Mean Corpuscular Volume 78fL (79-100) Mean Corpuscular Hemoglobin 27pg (25-35) Mean Corpuscular Hemoglobin Concent 34g/dL (31-37) Red Cell Distribution Width 19.0% (11.5-14.5) Platelet Count 99x10^3/uL (140-400) Neutrophils (%) (Auto) 69% (31-73) Lymphocytes (%) (Auto) 22% (24-48) Monocytes (%) (Auto) 9% (0-9) Eosinophils (%) (Auto) 0% (0-3) Basophils (%) (Auto) 0% (0-3) Neutrophils # (Auto) 4.6x10^3uL (1.8-7.7) Lymphocytes # (Auto) 1.5x10^3/uL (1.0-4.8) Monocytes # (Auto) 0.6x10^3/uL (0.0-1.1) Eosinophils # (Auto) 0.0x10^3/uL (0.0-0.7) Basophils # (Auto) 0.0x10^3/uL (0.0-0.2) Lactic Acid Level 1.8mmol/L (0.4-2.0) Test 10/28/16 18:07 10/29/16 04:30 10/29/16 05:00 10/29/16 07:50 Glucose (Fingerstick) 148mg/dL (70-99) White Blood Count 7.0x10^3/uL (4.0-11.0) Red Blood Count 3.46x10^6/uL (4.30-5.70) Hemoglobin 9.0g/dL (13.0-17.5) Hematocrit 27.3% (39.0-53.0) Mean Corpuscular Volume 79fL (79-100) Mean Corpuscular Hemoglobin 26pg (25-35) Mean Corpuscular Hemoglobin Concent 33g/dL (31-37) Red Cell Distribution Width 18.8% (11.5-14.5) Platelet Count 106x10^3/uL (140-400) Neutrophils (%) (Auto) 66% (31-73) Lymphocytes (%) (Auto) 26% (24-48) Monocytes (%) (Auto) 8% (0-9) Eosinophils (%) (Auto) 0% (0-3) Basophils (%) (Auto) 0% (0-3) Neutrophils # (Auto) 4.6x10^3uL (1.8-7.7) Lymphocytes # (Auto) 1.8x10^3/uL (1.0-4.8) Monocytes # (Auto) 0.5x10^3/uL (0.0-1.1) Eosinophils # (Auto) 0.0x10^3/uL (0.0-0.7) Basophils # (Auto) 0.0x10^3/uL (0.0-0.2) Sodium Level 123mmol/L (136-145) Potassium Level 4.3mmol/L (3.5-5.1) Chloride Level 90mmol/L (98-107) Carbon Dioxide Level 18mmol/L (21-32) Anion Gap 15 (6-14) Blood Urea Nitrogen 88mg/dL (8-26) Creatinine 3.0mg/dL (0.7-1.3) Estimated GFR (Cockcroft-Gault) 20.7 BUN/Creatinine Ratio 29 (6-20) Glucose Level 141mg/dL (70-99) Serum Osmolality 285mOsm/Kg (279-304) Lactic Acid Level 1.0mmol/L (0.4-2.0) Calcium Level 7.9mg/dL (8.5-10.1) Magnesium Level 2.1mg/dL (1.8-2.4) Total Bilirubin 0.8mg/dL (0.2-1.0) Aspartate Amino Transf (AST/SGOT) 86U/L (15-37) Alanine Aminotransferase (ALT/SGPT) 50U/L (16-63) Alkaline Phosphatase 53U/L (46-116) Total Protein 6.0g/dL (6.4-8.2) Albumin 2.8g/dL (3.4-5.0) Albumin/Globulin Ratio 0.9 (1.0-1.7) Uric Acid 12.7mg/dL (3.5-7.2) Urine Random Sodium 35mmol/L (Not Estab.) Test 10/29/16 08:00 10/29/16 09:03 10/29/16 11:36 10/29/16 12:29 Sodium Level 125mmol/L (136-145) 125mmol/L (136-145) Thyroid Stimulating Hormone (TSH) 3.141uIU/mL (0.358-3.74) Glucose (Fingerstick) 135mg/dL (70-99) 144mg/dL (70-99) Laboratory Tests Test 10/28/16 18:07 10/29/16 04:30 10/29/16 05:00 10/29/16 07:50 Glucose (Fingerstick) 148mg/dL (70-99) White Blood Count 7.0x10^3/uL (4.0-11.0) Red Blood Count 3.46x10^6/uL (4.30-5.70) Hemoglobin 9.0g/dL (13.0-17.5) Hematocrit 27.3% (39.0-53.0) Mean Corpuscular Volume 79fL (79-100) Mean Corpuscular Hemoglobin 26pg (25-35) Mean Corpuscular Hemoglobin Concent 33g/dL (31-37) Red Cell Distribution Width 18.8% (11.5-14.5) Platelet Count 106x10^3/uL (140-400) Neutrophils (%) (Auto) 66% (31-73) Lymphocytes (%) (Auto) 26% (24-48) Monocytes (%) (Auto) 8% (0-9) Eosinophils (%) (Auto) 0% (0-3) Basophils (%) (Auto) 0% (0-3) Neutrophils # (Auto) 4.6x10^3uL (1.8-7.7) Lymphocytes # (Auto) 1.8x10^3/uL (1.0-4.8) Monocytes # (Auto) 0.5x10^3/uL (0.0-1.1) Eosinophils # (Auto) 0.0x10^3/uL (0.0-0.7) Basophils # (Auto) 0.0x10^3/uL (0.0-0.2) Sodium Level 123mmol/L (136-145) Potassium Level 4.3mmol/L (3.5-5.1) Chloride Level 90mmol/L (98-107) Carbon Dioxide Level 18mmol/L (21-32) Anion Gap 15 (6-14) Blood Urea Nitrogen 88mg/dL (8-26) Creatinine 3.0mg/dL (0.7-1.3) Estimated GFR (Cockcroft-Gault) 20.7 BUN/Creatinine Ratio 29 (6-20) Glucose Level 141mg/dL (70-99) Serum Osmolality 285mOsm/Kg (279-304) Lactic Acid Level 1.0mmol/L (0.4-2.0) Calcium Level 7.9mg/dL (8.5-10.1) Magnesium Level 2.1mg/dL (1.8-2.4) Total Bilirubin 0.8mg/dL (0.2-1.0) Aspartate Amino Transf (AST/SGOT) 86U/L (15-37) Alanine Aminotransferase (ALT/SGPT) 50U/L (16-63) Alkaline Phosphatase 53U/L (46-116) Total Protein 6.0g/dL (6.4-8.2) Albumin 2.8g/dL (3.4-5.0) Albumin/Globulin Ratio 0.9 (1.0-1.7) Uric Acid 12.7mg/dL (3.5-7.2) Urine Random Sodium 35mmol/L (Not Estab.) Test 10/29/16 08:00 10/29/16 09:03 10/29/16 11:36 10/29/16 12:29 Sodium Level 125mmol/L (136-145) 125mmol/L (136-145) Thyroid Stimulating Hormone (TSH) 3.141uIU/mL (0.358-3.74) Glucose (Fingerstick) 135mg/dL (70-99) 144mg/dL (70-99) Microbiology 10/27/16 Urine Culture - Final, Complete 10/27/16 Urine Culture Result 1 (JANEL) - Final, Complete Medications Current Medications Pantoprazole Sodium 40 mg 40 mg DAILYAC IVP Last administered on 10/29/16 07: 42; Start 10/26/16 at 17:00 Dobutamine HCl/ Dextrose 250 ml @ 0 mls/hr CONT PRN IV SEE I/O RECORD Last administered on 10/29/16 03:02; Start 10/26/16 at 17:00 Furosemide (Lasix) 60 mg 1X ONCE IVP Last administered on 10/27/16 08:15; Start 10/27/16 at 08:30; Stop 10/27/16 at 08:31; Status DC Sodium Bicarbonate 50 meq Q2HR IV Last administered on 10/27/16 12:38; Start 10/27/16 at 10:00; Stop 10/27/16 at 12:01; Status DC Albuterol/ Ipratropium (Duoneb) 3 ml RTQID NEB Last administered on 10/29/16 12:37; Start 10/27/16 at 12:00 Heparin Sodium (Porcine) (Heparin Sodium) 10,000 unit Ku ONCE .ROUTE ; Start 10/27/16 at 10:01; Stop 10/27/16 at 10:02; Status DC Lidocaine/Sodium Bicarbonate 20 ml 20 ml STK-MED ONCE IJ ; Start 10/27/16 at 10: 01; Stop 10/27/16 at 10:02; Status DC Heparin Sodium/ Sodium Chloride 500 ml @ As Directed STK-MED ONCE .ROUTE ; Start 10/27/16 at 10:01; Stop 10/27/16 at 10:02; Status DC Lidocaine/Sodium Bicarbonate (Buffered Lidocaine 1%) 3 ml 1X ONCE IJ Last administered on 10/27/16 12:16; Start 10/27/16 at 10:15; Stop 10/27/16 at 10:16 ; Status DC Heparin Sodium/ Sodium Chloride 60 unit 1X ONCE IV Last administered on 12:14; Start 10/27/16 at 10:15; Stop 10/27/16 at 10:16; Status DC Heparin Sodium (Porcine) (Heparin Sodium) 2,500 unit 1X ONCE INT CAT Last administered on 10/27/16 12:16; Start 10/27/16 at 10:15; Stop 10/27/16 at 10:16 ; Status DC Aspirin (Krystian Aspirin) 325 mg DAILY PO Last administered on 10/29/16 09:30; Start 10/27/16 at 12:00 Vitamin D (Vitamin D3) 1,000 unit DAILY PO Last administered on 10/29/16 09:26 ; Start 10/27/16 at 12:00 Diltiazem HCl (Cardizem Cd) 300 mg DAILY PO Last administered on 10/29/16 09: 25; Start 10/27/16 at 12:00 Furosemide (Lasix) 40 mg BID94 PO Last administered on 10/28/16 17:13; Start 10/27/16 at 12:00; Stop 10/29/16 at 07:12; Status DC Insulin Aspart (Novolog) 11 units TIDWMEALS SQ ; Start 10/27/16 at 12:00 Levothyroxine Sodium (Synthroid) 125 mcg DAILY07 PO Last administered on 06:37; Start 10/27/16 at 12:00 Lisinopril (Prinivil) 40 mg DAILY PO Last administered on 10/27/16 13:22; Start 10/27/16 at 12:00 Methocarbamol (Robaxin) 500 mg PRN TID PRN PO MUSCLE SPASMS; Start 10/27/16 at 11:15 Tamsulosin HCl (Flomax) 0.4 mg QHS PO Last administered on 10/28/16 20:55; Start 10/27/16 at 21:00 Albuterol Sulfate (Ventolin Neb Soln) 2.5 mg PRN Q4HRS PRN NEB SHORTNESS OF BREATH; Start 10/27/16 at 11:30 Brimonidine Tartrate (Alphagan) 1 drop BID OU Last administered on 10/29/16 09 :30; Start 10/27/16 at 12:00 Artificial Tears (Artificial Tears) 1 drop PRN Q15MIN PRN OU DRY EYE; Start at 11:30 Ferrous Sulfate (Feosol) 325 mg BIDWMEALS PO Last administered on 10/29/16 09: 28; Start 10/27/16 at 12:00 Gabapentin (Neurontin) 300 mg BID PO Last administered on 10/29/16 09:28; Start 10/27/16 at 12:00 Non-Formulary Medication 1 inh QID IH ; Start 10/27/16 at 13:00; Status UNV Non-Formulary Medication 1 each TID TP ; Start 10/27/16 at 14:00; Status UNV Non-Formulary Medication 1 tab BID PO ; Start 10/27/16 at 21:00; Status UNV Potassium Chloride (Klor-Con) 10 meq DAILYWBKFT PO Last administered on 09:26; Start 10/28/16 at 08:00 Atorvastatin Calcium (Lipitor) 20 mg QHS PO Last administered on 10/28/16 20: 55; Start 10/27/16 at 21:00 Linagliptin (Tradjenta) 5 mg DAILY PO Last administered on 10/29/16 09:30; Start 10/27/16 at 12:00 Furosemide (Lasix) 60 mg 1X ONCE IVP ; Start 10/28/16 at 08:00; Stop 10/28/16 at 08:01; Status DC Sodium Bicarbonate 50 meq 50 meq Q2HR IV Last administered on 10/29/16 10:14; Start 10/29/16 at 08:00; Stop 10/29/16 at 10:01; Status DC Sodium Bicarbonate 150 meq/Sterile Water 1,150 ml @ 80 mls/hr [id number] PRN IV . ; Start 10/29/16 at 07:45 Sodium Chloride (Hypertonic Saline) 500 ml @ 30 mls/hr CONT PRN PRN IV see comments; Start 10/29/16 at 07:45 Acetaminophen (Tylenol) 650 mg PRN Q6HRS PRN PO PAIN Last administered on t 12:26; Start 10/29/16 at 11:15 Nystatin (Nystop) 1 summer TID PRN PRN TP REDNESS; Start 10/29/16 at 11:15 Multi-Ingredient Ointment (Analgesic [place]) 1 summer PRN QID PRN TP MUSCLE PAIN; Start 10/29/16 at 11:15 Active Scripts Active Reported Tamsulosin Hcl 0.4 Mg Cap.er.24h 0.4 Mg PO QHS Onglyza (Saxagliptin Hcl) 5 Mg Tablet 1 Tab PO DAILY Crestor (Rosuvastatin Calcium) 10 Mg Tablet 0.5 Tab PO DAILY Potassium Chloride 20 Meq Tablet.er 10 Meq PO DAILY Omeprazole 20 Mg Tablet.dr 1 Tab PO BID Nitrostat (Nitroglycerin) 0.3 Mg Tab.subl 0.3 Mg SL PRN Q5MIN PRN Methocarbamol 500 Mg Tablet 500 Mg PO PRN TID PRN [place] Ultra Strength (Menthol) 1 Each Adh..patch 1 Each TP TID Lisinopril 40 Mg Tablet 1 Tab PO DAILY Levothyroxine Sodium 125 Mcg Tablet 1 Tab PO DAILY Novolog Flexpen (Insulin Aspart) 100 Unit/1 Ml Insuln.pen 11 Unit SQ TIDWMEALS Gabapentin 300 Mg Capsule 300 Mg PO TID Furosemide 40 Mg Tablet 40 Mg PO BID Ferrous Sulfate 324 Mg Tablet.dr 324 Mg PO BID Cardizem Cd (Diltiazem Hcl) 300 Mg Cap.er.24h 300 Mg PO DAILY Vitamin D3 (Cholecalciferol (Vitamin D3)) 1,000 Unit Tablet 1 Tab PO DAILY Refresh Optive Advanced Drops (Carboxymethyl/Glycerin/Poly80) 10 Ml Drops 1 Drop OP PRN QID PRN Alphagan P (Brimonidine Tartrate) 5 Ml Drops 1 Drop EACHEYE BID Aspirin 325 Mg Tablet 1 Tab PO DAILY Albuterol Sulfate Conc Neb Soln (Albuterol Sulfate) 2.5 Mg/0.5 Ml Vial.neb 1 Vial NEB Q4HRS Combivent Respimat Inhal (Ipratropium/Albuterol Sulfate) 4 Gm Aer.w.adap 1 Inh IH QID Vitals/I & O Vital Sign - Last 24 Hours 10/28/16 10/28/16 10/28/16 10/28/16 16:00 16:00 16:17 17:00 Temp 98.2 98.2 Pulse 60 60 Resp 27 30 B/P 130/48 111/47 Pulse Ox 97 97 97 O2 Delivery Nasal Cannula Nasal Cannula Nasal Cannula Nasal Cannula O2 Flow Rate 3.5 3.5 3.0 3.5 10/28/16 10/28/16 10/28/16 10/28/16 18:00 19:00 19:30 19:46 Pulse 64 63 Resp 34 26 B/P 106/51 121/48 Pulse Ox 98 98 99 O2 Delivery Nasal Cannula Nasal Cannula Nasal Cannula BiPAP/CPAP O2 Flow Rate 3.5 3.5 3.5 10/28/16 10/28/16 10/28/16 10/28/16 20:00 21:00 21:10 22:00 Temp 99.0 99.0 Pulse 63 72 63 Resp 28 B/P 147/59 137/56 106/52 Pulse Ox 100 100 100 100 O2 Delivery BiPAP/CPAP BiPAP/CPAP BiPAP/CPAP BiPAP/CPAP 10/28/16 10/28/16 10/29/16 10/29/16 23:00 23:08 00:00 00:00 Temp 99.3 99.3 Pulse 63 64 Resp 28 26 B/P 140/56 124/51 Pulse Ox 100 100 100 O2 Delivery BiPAP/CPAP BiPAP/CPAP BiPAP/CPAP Bi-pap 10/29/16 10/29/16 10/29/16 10/29/16 01:00 02:00 03:00 03:52 Pulse 67 67 67 Resp 30 29 26 B/P 111/48 99/46 126/84 Pulse Ox 97 97 98 O2 Delivery Nasal Cannula Nasal Cannula Nasal Cannula Nasal Cannula O2 Flow Rate 3.5 3.5 3.5 3.5 10/29/16 10/29/16 10/29/16 10/29/16 04:00 05:00 06:00 07:00 Temp 99.1 99.1 Pulse 66 67 67 67 Resp 23 26 26 27 B/P 126/51 117/49 121/51 131/54 Pulse Ox 98 97 99 98 O2 Delivery Nasal Cannula Nasal Cannula Nasal Cannula Nasal Cannula O2 Flow Rate 3.5 3.5 3.5 3.5 10/29/16 10/29/16 10/29/16 10/29/16 08:00 08:00 08:10 09:00 Temp 99.1 99.1 Pulse 71 67 Resp 31 B/P 133/51 127/53 Pulse Ox 95 98 O2 Delivery Nasal Cannula Nasal Cannula O2 Flow Rate 3.5 3.5 3.0 10/29/16 10/29/16 10/29/16 10/29/16 09:00 09:25 10:00 11:00 Pulse 66 67 66 71 Resp 29 28 22 B/P 120/52 120/52 127/53 108/50 Pulse Ox 99 97 97 O2 Delivery Nasal Cannula Nasal Cannula Nasal Cannula O2 Flow Rate 3.5 3.5 3.5 10/29/16 10/29/16 10/29/16 10/29/16 12:00 12:00 12:37 13:00 Temp 97.7 97.7 Pulse 70 70 Resp 21 24 B/P 101/47 78/42 Pulse Ox 96 96 100 O2 Delivery Nasal Cannula Nasal Cannula Nasal Cannula Ventilator O2 Flow Rate 3.5 3.5 3.0 Intake and Output 10/28/16 10/28/16 10/29/16 15:00 23:00 07:00 Intake Total 896 ml 141 ml Output Total 380 ml 862 ml 1100 ml Balance -380 ml 34 ml -959 ml WENDIE ANGEL MD Oct 29, 2016 15:26
[2016-10-29] MEDS: METHYL SALICYLATE/MENTHOL TOPICAL OINTMENT 29GM TUBE. TP PRN (19:25)
[2016-10-29] MEDS: TAMSULOSIN 0.4 MG CAP.ER.24H. PO SCH (20:55)
[2016-10-29] MEDS: ATORVASTATIN CALCIUM 20 MG TABLET PO SCH (20:55)
[2016-10-30] VITALS (21 sets, daily range): BP systolic 80–134; BP diastolic 40–79
[2016-10-30] MEDS: METHOCARBAMOL 500 MG TABLET PO PRN (01:25)
[2016-10-30 05:11] LABS: BASO # 0.1 x10^3/uL (0.0-0.2); BASO % 1 % (0-3); EOS % 0 % (0-3); HEMATOCRIT 27.7 % (39.0-53.0); HEMOGLOBIN 9.1 g/dL (13.0-17.5); LYMPH # 1.3 x10^3/uL (1.0-4.8); LYMPH % 19 % (24-48); MEAN CORPUSCULAR HEMOGLOBIN 26 pg (25-35); MEAN CORPUSCULAR HGB CONC 33 g/dL (31-37); MEAN CORPUSCULAR VOLUME 79 fL (79-100); MONO % 8 % (0-9); NEUT % 72 % (31-73); PLATELET COUNT 130 x10^3/uL (140-400); RED BLOOD COUNT 3.52 x10^6/uL (4.30-5.70); RED CELL DISTRIBUTION WIDTH 18.7 % (11.5-14.5)
[2016-10-30] MEDS: LEVOTHYROXINE 125 MCG TABLET PO SCH (06:58)
[2016-10-30] MEDS: POTASSIUM CHLORIDE 10 MEQ TABLET.ER. PO SCH (08:00)
[2016-10-30] MEDS: GABAPENTIN 300 MG CAPSULE. PO SCH ×2 (08:23→20:23)
[2016-10-30] MEDS: LINAGLIPTIN 5 MG TABLET PO SCH (08:23)
[2016-10-30] MEDS: CHOLECALCIFEROL (VITAMIN D3) 1,000 UNIT TABLET PO SCH (08:24)
[2016-10-30] MEDS: FERROUS SULFATE 325 MG TABLET. PO SCH ×2 (08:24→16:54)
[2016-10-30] MEDS: INSULIN ASPART 300 UNITS/3 ML INSULN.PEN SQ SCH ×3 (08:29→17:46)
[2016-10-30] MEDS: ASPIRIN 325 MG TABLET PO SCH (08:29)
[2016-10-30] MEDS: LISINOPRIL 40 MG TABLET. PO SCH (08:31)
[2016-10-30] MEDS: IPRATRPIUM/ALBUTEROL 0.5/2.5MG 3 ML NEBU. NEB SCH ×4 (08:32→19:49)
[2016-10-30] MEDS: PANTOPRAZOLE IV PUSH 40 MG VIAL. IVP SCH (08:32)
--- NOTE | 2016-10-30 08:42 | RAD ---
Bilateral lower extremity venous ultrasound, 10/29/2016: History: Shortness of breath Duplex evaluation of the deep veins in the lower extremities was performed including grayscale, color-flow and spectral Doppler analysis. The femoral and popliteal veins demonstrate normal compressibility and normal responses to distal augmentation maneuvers. Color imaging of those vessels shows no evidence of intraluminal clot. The visualized deep veins in both calves are patent. IMPRESSION: There is no sonographic evidence of deep vein thrombosis in either lower extremity.
[2016-10-30] MEDS: BRIMONIDINE 0.2% OPHTH SOLUTION 5ML BOTTLE. OU SCH ×2 (09:27→20:22)
--- NOTE | 2016-10-30 09:38 | PDOC ---
SUBJECTIVE ROS BELINDA Feels much better this am carina from resp standpoint. Off Dobutamine since last pm. CVS: no Orthopnea, no CP RESP: no SOB, no RAPHAEL - when on biPAP GI: no Nausea, no Vomiting : no Dysuria, no Urgency - coffey in palce OBJECTIVE Vital Signs Vital Signs Date Time Temp Pulse Resp B/P Pulse Ox O2 Delivery O2 Flow Rate FiO2 10/30/16 08:32 93 Nasal Cannula 3.0 10/30/16 08:31 76 124/54 10/30/16 06:57 19 10/30/16 04:15 98.5 98.5 I & 0 Intake and Output 10/30/16 07:00 Intake Total 2610 ml Output Total 3110 ml Balance -500 ml Intake Oral 1525 ml IV Total 1085 ml Output Urine Total 3110 ml PHYSICAL EXAM Physical Exam General Appearance: Awake Alert Oriented x 3 In no resp Distress currently (he had a good phone conversation) Eyes: VIsion Unchanged Conjunctiva Normal EN: No EN Drainage Mucous Memb. moist Neck: no JVD min JVP Supple no Thyromegaly CVS: S1 S2 no audible Murmur No Gallop No Rub no Edema Resp: no Rales no wheezing per se + Acc. Muscle use + Cough and Upper resp coarse rhonchi GI: BS +ve NO Bruit Non Tender Non Distended : no CVA tenderness; no Suprapubic Tenderness SKIN: no Rashes Breast Exam deferred Mu.Sk: Adequate ROM no Muscle Atrophy Heme: Unable to palpate Obvious LAD no palp Splenomegaly NEURO: Good Strength and Tone Cranial Nerves II - XII grossly intact Psych: not Depressed no Active hallucination Assessment & Plan ARF/ ATN ? : Appears to be somewhat pre-renal and responded to IVF well. Creat is down. I expect him to ct to improve gradually with IVF however ability to given IVF is restricted by Cmyoaphty and Resp status (for which he goes back and forth on BiPAP) . Cannot r/o element of ATN. Renal US is WNL. Current FLuid and E-lyte status does not necessitate emergent need for Dialysis. Will re-evaluate for Dialysis in am. ? BELINDA due to Saxagliptin Known CKD III with Creat ~ 1.9ish at [facility] CmyoPahty with ^ed BNP - now on Dobutamine and much improved LV Function; EF off of Dobutamin is 30% per recheck ECHO (Dw Dr Reyes) Met ACidosis - appears to have resolved - some due to diarrhea too; now resolved Low Na - pt admits to drinking a lot of water. - follow levels. Isotonic IVF and may need 3% if symptomatic; U Osm Pending currenlty. SOB/ ? Orthopnea - defer to Pulm; suspect COPD exac; D/w Dr Cota Anemia: GI eval noted. 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 at length with pt COMMENT/RELEVANT DATA Meds Current Medications Medications (Trade) Dose Ordered Sig/Jcarlos Start Time Stop Time Status Last Admin Dose Admin Acetaminophen (Tylenol) 650 mg PRN Q6HRS PRN 10/29/16 11:15 10/29/16 19:25 650 MG Albuterol Sulfate (Ventolin Neb Soln) 2.5 mg PRN Q4HRS PRN 10/27/16 11:30 10/30/16 01:38 2.5 MG Albuterol/ Ipratropium (Duoneb) 3 ml RTQID 10/27/16 12:00 10/30/16 08:32 3 ML Artificial Tears (Artificial Tears) 1 drop PRN Q15MIN PRN 10/27/16 11:30 Aspirin (Krystian Aspirin) 325 mg DAILY 10/27/16 12:00 10/30/16 08:29 325 MG Atorvastatin Calcium (Lipitor) 20 mg QHS 10/27/16 21:00 10/29/16 20:55 20 MG Brimonidine Tartrate (Alphagan) 1 drop BID 10/27/16 12:00 10/30/16 09:27 1 DROP Diltiazem HCl (Cardizem Cd) 300 mg DAILY 10/27/16 12:00 10/30/16 08:23 300 MG Dobutamine HCl/ Dextrose 250 ml @ 0 mls/hr CONT PRN 10/26/16 17:00 10/29/16 03:02 10.951 MLS/HR Ferrous Sulfate (Feosol) 325 mg BIDWMEALS 10/27/16 12:00 10/30/16 08:24 325 MG Furosemide (Lasix) 60 mg 1X ONCE 10/28/16 08:00 10/28/16 08:01 DC Gabapentin (Neurontin) 300 mg BID 10/27/16 12:00 10/30/16 08:23 300 MG Heparin Sodium (Porcine) (Heparin Sodium) 2,500 unit 1X ONCE 10/27/16 10:15 10/27/16 10:16 DC 10/27/16 12:16 2,800 UNIT Heparin Sodium/ Sodium Chloride 60 unit 1X ONCE 10/27/16 10:15 10/27/16 10:16 DC 10/27/16 12:14 60 UNIT Insulin Aspart (Novolog) 11 units TIDWMEALS 10/27/16 12:00 10/30/16 08:29 11 UNITS Levothyroxine Sodium (Synthroid) 125 mcg DAILY07 10/27/16 12:00 10/30/16 06:58 125 MCG Lidocaine/Sodium Bicarbonate (Buffered Lidocaine 1%) 3 ml 1X ONCE 10/27/16 10:15 10/27/16 10:16 DC 10/27/16 12:16 3 ML Linagliptin (Tradjenta) 5 mg DAILY 10/27/16 12:00 10/30/16 08:23 5 MG Lisinopril (Prinivil) 40 mg DAILY 10/27/16 12:00 10/27/16 13:22 40 MG Methocarbamol (Robaxin) 500 mg PRN TID PRN 10/27/16 11:15 10/30/16 01:25 500 MG Multi-Ingredient Ointment (Analgesic [place]) 1 summer PRN QID PRN 10/29/16 11:15 10/29/16 19:25 1 SUMMER Non-Formulary Medication 1 tab BID 10/27/16 21:00 UNV Nystatin (Nystop) 1 summer TID PRN PRN 10/29/16 11:15 Pantoprazole Sodium 40 mg 40 mg DAILYAC 10/26/16 17:00 10/30/16 08:32 40 MG Potassium Chloride (Klor-Con) 10 meq [id number] 10/28/16 08:00 10/29/16 09:26 10 MEQ Sodium Bicarbonate 150 meq/Sterile Water 1,150 ml @ 80 mls/hr [id number] PRN 10/29/16 07:45 10/29/16 16:41 80 MLS/HR Sodium Bicarbonate 50 meq 50 meq Q2HR 10/29/16 08:00 10/29/16 10:01 DC 10/29/16 10:14 50 MEQ Sodium Bicarbonate 50 meq Q2HR 10/27/16 10:00 10/27/16 12:01 DC 10/27/16 12:38 50 MEQ Sodium Chloride (Hypertonic Saline) 500 ml @ 30 mls/hr CONT PRN PRN 10/29/16 07:45 Tamsulosin HCl (Flomax) 0.4 mg QHS 10/27/16 21:00 10/29/16 20:55 0.4 MG Vitamin D (Vitamin D3) 1,000 unit DAILY 10/27/16 12:00 10/30/16 08:24 1,000 UNIT Lab Laboratory Tests Test 10/29/16 11:36 10/29/16 12:29 10/29/16 15:35 10/29/16 17:36 Sodium Level 125mmol/L (136-145) 124mmol/L (136-145) Glucose (Fingerstick) 144mg/dL (70-99) 155mg/dL (70-99) Test 10/29/16 20:20 10/30/16 00:00 10/30/16 04:45 10/30/16 07:21 Sodium Level 124mmol/L (136-145) 125mmol/L (136-145) 125mmol/L (136-145) White Blood Count 7.0x10^3/uL (4.0-11.0) Red Blood Count 3.52x10^6/uL (4.30-5.70) Hemoglobin 9.1g/dL (13.0-17.5) Hematocrit 27.7% (39.0-53.0) Mean Corpuscular Volume 79fL (79-100) Mean Corpuscular Hemoglobin 26pg (25-35) Mean Corpuscular Hemoglobin Concent 33g/dL (31-37) Red Cell Distribution Width 18.7% (11.5-14.5) Platelet Count 130x10^3/uL (140-400) Neutrophils (%) (Auto) 72% (31-73) Lymphocytes (%) (Auto) 19% (24-48) Monocytes (%) (Auto) 8% (0-9) Eosinophils (%) (Auto) 0% (0-3) Basophils (%) (Auto) 1% (0-3) Neutrophils # (Auto) 5.1x10^3uL (1.8-7.7) Lymphocytes # (Auto) 1.3x10^3/uL (1.0-4.8) Monocytes # (Auto) 0.5x10^3/uL (0.0-1.1) Eosinophils # (Auto) 0.0x10^3/uL (0.0-0.7) Basophils # (Auto) 0.1x10^3/uL (0.0-0.2) Lactic Acid Level 1.2mmol/L (0.4-2.0) Glucose (Fingerstick) 161mg/dL (70-99) AILIN MCBRIDE MD October 30, 2016 09:37
[2016-10-30] MEDS ORDERED: MAGNESIUM SULFATE 2GM 50 ML IV PRN (09:45)
--- NOTE | 2016-10-30 10:40 | PDOC ---
PULMONARY PROGRESS NOTES Subjective PT ON BIPAP, FEELS LESS SOA Vitals Vital Signs Date Time Temp Pulse Resp B/P Pulse Ox O2 Delivery O2 Flow Rate FiO2 10/30/16 08:32 93 Nasal Cannula 3.0 10/30/16 08:31 76 124/54 10/30/16 06:57 19 10/30/16 04:15 98.5 98.5 ROS: No Nausea, No Chest Pain, No Abdominal Pain, No Increase Cough General: Alert Lungs: Other (COARSE BS) Cardiovascular: S1, S2 Abdomen: Soft Neuro Exam: Alert Extremities: Other (1+edema) Skin: Warm Labs Laboratory Tests Test 10/28/16 12:56 10/28/16 18:07 10/29/16 04:30 10/29/16 05:00 Glucose (Fingerstick) 175mg/dL (70-99) 148mg/dL (70-99) White Blood Count 7.0x10^3/uL (4.0-11.0) Red Blood Count 3.46x10^6/uL (4.30-5.70) Hemoglobin 9.0g/dL (13.0-17.5) Hematocrit 27.3% (39.0-53.0) Mean Corpuscular Volume 79fL (79-100) Mean Corpuscular Hemoglobin 26pg (25-35) Mean Corpuscular Hemoglobin Concent 33g/dL (31-37) Red Cell Distribution Width 18.8% (11.5-14.5) Platelet Count 106x10^3/uL (140-400) Neutrophils (%) (Auto) 66% (31-73) Lymphocytes (%) (Auto) 26% (24-48) Monocytes (%) (Auto) 8% (0-9) Eosinophils (%) (Auto) 0% (0-3) Basophils (%) (Auto) 0% (0-3) Neutrophils # (Auto) 4.6x10^3uL (1.8-7.7) Lymphocytes # (Auto) 1.8x10^3/uL (1.0-4.8) Monocytes # (Auto) 0.5x10^3/uL (0.0-1.1) Eosinophils # (Auto) 0.0x10^3/uL (0.0-0.7) Basophils # (Auto) 0.0x10^3/uL (0.0-0.2) Sodium Level 123mmol/L (136-145) Potassium Level 4.3mmol/L (3.5-5.1) Chloride Level 90mmol/L (98-107) Carbon Dioxide Level 18mmol/L (21-32) Anion Gap 15 (6-14) Blood Urea Nitrogen 88mg/dL (8-26) Creatinine 3.0mg/dL (0.7-1.3) Estimated GFR (Cockcroft-Gault) 20.7 BUN/Creatinine Ratio 29 (6-20) Glucose Level 141mg/dL (70-99) Serum Osmolality 285mOsm/Kg (279-304) Lactic Acid Level 1.0mmol/L (0.4-2.0) Calcium Level 7.9mg/dL (8.5-10.1) Magnesium Level 2.1mg/dL (1.8-2.4) Total Bilirubin 0.8mg/dL (0.2-1.0) Aspartate Amino Transf (AST/SGOT) 86U/L (15-37) Alanine Aminotransferase (ALT/SGPT) 50U/L (16-63) Alkaline Phosphatase 53U/L (46-116) Total Protein 6.0g/dL (6.4-8.2) Albumin 2.8g/dL (3.4-5.0) Albumin/Globulin Ratio 0.9 (1.0-1.7) Uric Acid 12.7mg/dL (3.5-7.2) Test 10/29/16 07:50 10/29/16 08:00 10/29/16 09:03 10/29/16 11:36 Urine Random Sodium 35mmol/L (Not Estab.) Sodium Level 125mmol/L (136-145) 125mmol/L (136-145) Thyroid Stimulating Hormone (TSH) 3.141uIU/mL (0.358-3.74) Glucose (Fingerstick) 135mg/dL (70-99) Test 10/29/16 12:29 10/29/16 15:35 10/29/16 17:36 10/29/16 20:20 Glucose (Fingerstick) 144mg/dL (70-99) 155mg/dL (70-99) Sodium Level 124mmol/L (136-145) 124mmol/L (136-145) Test 10/30/16 00:00 10/30/16 04:45 10/30/16 07:21 Sodium Level 125mmol/L (136-145) 125mmol/L (136-145) White Blood Count 7.0x10^3/uL (4.0-11.0) Red Blood Count 3.52x10^6/uL (4.30-5.70) Hemoglobin 9.1g/dL (13.0-17.5) Hematocrit 27.7% (39.0-53.0) Mean Corpuscular Volume 79fL (79-100) Mean Corpuscular Hemoglobin 26pg (25-35) Mean Corpuscular Hemoglobin Concent 33g/dL (31-37) Red Cell Distribution Width 18.7% (11.5-14.5) Platelet Count 130x10^3/uL (140-400) Neutrophils (%) (Auto) 72% (31-73) Lymphocytes (%) (Auto) 19% (24-48) Monocytes (%) (Auto) 8% (0-9) Eosinophils (%) (Auto) 0% (0-3) Basophils (%) (Auto) 1% (0-3) Neutrophils # (Auto) 5.1x10^3uL (1.8-7.7) Lymphocytes # (Auto) 1.3x10^3/uL (1.0-4.8) Monocytes # (Auto) 0.5x10^3/uL (0.0-1.1) Eosinophils # (Auto) 0.0x10^3/uL (0.0-0.7) Basophils # (Auto) 0.1x10^3/uL (0.0-0.2) Lactic Acid Level 1.2mmol/L (0.4-2.0) Glucose (Fingerstick) 161mg/dL (70-99) Laboratory Tests Test 10/29/16 11:36 10/29/16 12:29 10/29/16 15:35 10/29/16 17:36 Sodium Level 125mmol/L (136-145) 124mmol/L (136-145) Glucose (Fingerstick) 144mg/dL (70-99) 155mg/dL (70-99) Test 10/29/16 20:20 10/30/16 00:00 10/30/16 04:45 10/30/16 07:21 Sodium Level 124mmol/L (136-145) 125mmol/L (136-145) 125mmol/L (136-145) White Blood Count 7.0x10^3/uL (4.0-11.0) Red Blood Count 3.52x10^6/uL (4.30-5.70) Hemoglobin 9.1g/dL (13.0-17.5) Hematocrit 27.7% (39.0-53.0) Mean Corpuscular Volume 79fL (79-100) Mean Corpuscular Hemoglobin 26pg (25-35) Mean Corpuscular Hemoglobin Concent 33g/dL (31-37) Red Cell Distribution Width 18.7% (11.5-14.5) Platelet Count 130x10^3/uL (140-400) Neutrophils (%) (Auto) 72% (31-73) Lymphocytes (%) (Auto) 19% (24-48) Monocytes (%) (Auto) 8% (0-9) Eosinophils (%) (Auto) 0% (0-3) Basophils (%) (Auto) 1% (0-3) Neutrophils # (Auto) 5.1x10^3uL (1.8-7.7) Lymphocytes # (Auto) 1.3x10^3/uL (1.0-4.8) Monocytes # (Auto) 0.5x10^3/uL (0.0-1.1) Eosinophils # (Auto) 0.0x10^3/uL (0.0-0.7) Basophils # (Auto) 0.1x10^3/uL (0.0-0.2) Lactic Acid Level 1.2mmol/L (0.4-2.0) Glucose (Fingerstick) 161mg/dL (70-99) Medications Active Scripts Medications Dose Route/Sig Days Date Category Tamsulosin Hcl 0.4 Mg Cap.er.24h 0.4 Mg PO QHS 10/27/16 Reported Onglyza (Saxagliptin Hcl) 5 Mg Tablet 1 Tab PO DAILY 10/27/16 Reported Crestor (Rosuvastatin Calcium) 10 Mg Tablet 0.5 Tab PO DAILY 10/27/16 Reported Potassium Chloride 20 Meq Tablet.er 10 Meq PO DAILY 10/27/16 Reported Omeprazole 20 Mg Tablet. 1 Tab PO BID 10/27/16 Reported Nitrostat (Nitroglycerin) 0.3 Mg Tab.subl 0.3 Mg SL PRN Q5MIN PRN 10/27/16 Reported Methocarbamol 500 Mg Tablet 500 Mg PO PRN TID PRN 10/27/16 Reported Bengay Ultra Strength (Menthol) 1 Each Adh..patch 1 Each TP TID 10/27/16 Reported Lisinopril 40 Mg Tablet 1 Tab PO DAILY 10/27/16 Reported Levothyroxine Sodium 125 Mcg Tablet 1 Tab PO DAILY 10/27/16 Reported Novolog Flexpen (Insulin Aspart) 100 Unit/1 Ml Insuln.pen 11 Unit SQ TIDWMEALS 10/27/16 Reported Gabapentin 300 Mg Capsule 300 Mg PO TID 10/27/16 Reported Furosemide 40 Mg Tablet 40 Mg PO BID 10/27/16 Reported Ferrous Sulfate 324 Mg Tablet. 324 Mg PO BID 10/27/16 Reported Cardizem Cd (Diltiazem Hcl) 300 Mg Cap.er.24h 300 Mg PO DAILY 10/27/16 Reported Vitamin D3 (Cholecalciferol (Vitamin D3)) 1,000 Unit Tablet 1 Tab PO DAILY 10/27/16 Reported Refresh Optive Advanced Drops (Carboxymethyl/Glycerin/Poly80) 10 Ml Drops 1 Drop OP PRN QID PRN 10/27/16 Reported Alphagan P (Brimonidine Tartrate) 5 Ml Drops 1 Drop EACHEYE BID 10/27/16 Reported Aspirin 325 Mg Tablet 1 Tab PO DAILY 10/27/16 Reported Albuterol Sulfate Conc Neb Soln (Albuterol Sulfate) 2.5 Mg/0.5 Ml Vial.neb 1 Vial NEB Q4HRS 10/27/16 Reported Combivent Respimat Inhal (Ipratropium/Albuterol Sulfate) 4 Gm Aer.w.adap 1 Inh IH QID 10/27/16 Reported Impression . 1. Acute hypoxemic respiratory failure/AECOPD/ Acute on chronic Diastolic HF 2. Acute on chronic kidney failure. 3. Chronic heart failure, Acute on chronic diastolic heart failure. 4. Cardiomyopathy. (EF improved from 25 to 50%) 5. Status post pacemaker. 6. Coronary artery disease, status post coronary artery bypass grafting. 7. Hypertension. 8. Obstructive sleep apnea. 9. Acute on chronic blood-loss anemia. 10. Metabolic acidosis, suspect secondary to renal tubular acidosis, chronic kidney disease. Plan . 1. BiPAP with oxygen supplementation. 2. Venous Dopplers of the lower extremities, neg 3. Follow cardiology input 4. No need for antibiotics. 5. Monitor hemoglobin and hematocrit. 6. repeat cxr today to r/o CHF REFUGIO SALAZAR MD October 30, 2016 10:40
[2016-10-30 10:54] LABS: ALBUMIN 2.6 g/dL (3.4-5.0); CALCIUM 7.6 mg/dL (8.5-10.1); CREATININE 2.1 mg/dL (0.7-1.3); GFR 31.2; POTASSIUM 4.1 mmol/L (3.5-5.1)
--- NOTE | 2016-10-30 11:16 | RAD ---
Indication congestive heart failure. Shortness of breath. A single view of the chest was obtained. Comparison is made to a study 2 days earlier. Heart size is within normal limits. There is no evidence of gross congestive heart failure on today's exam. There is no consolidated pneumonia. There may be a tiny right pleural effusion. Postoperative changes and a unipolar cardiac pacing device is noted. Left-sided dialysis catheter also noted IMPRESSION: No acute or focal process. No gross congestive heart failure.
--- NOTE | 2016-10-30 11:54 | PDOC ---
PROGRESS NOTES Chief Complaint Chief Complaint cc:CHF exacerbation GI bleed Critical Hypotention PPM CABG Diabetes, Hypertension, Hyperlipidemia. Debility History of Present Illness History of Present Illness Mr. Hanks was sleeping in the room when we saw him. His SpO2% was at 100 with a CPAP at bedside. He had a double lumen central line in L neck. . Vitals Vitals Vital Signs Date Time Temp Pulse Resp B/P Pulse Ox O2 Delivery O2 Flow Rate FiO2 10/30/16 11:00 75 80/49 93 BiPAP/CPAP 10/30/16 09:00 4.0 10/30/16 08:00 98.4 98.4 10/30/16 06:57 19 Physical Exam General: No acute distress, Other (sleeping) Heart: Regular rate, Normal S1, Normal S2, No murmurs Lungs: Other (COARSE BS) Abdomen: Normal bowel sounds, Soft Extremities: No clubbing, Normal pulses Skin: No rashes, No breakdown Labs LABS Laboratory Tests Test 10/29/16 12:29 10/29/16 15:35 10/29/16 17:36 10/29/16 20:20 Glucose (Fingerstick) 144mg/dL (70-99) 155mg/dL (70-99) Sodium Level 124mmol/L (136-145) 124mmol/L (136-145) Test 10/30/16 00:00 10/30/16 04:45 10/30/16 07:21 Sodium Level 125mmol/L (136-145) 125mmol/L (136-145) White Blood Count 7.0x10^3/uL (4.0-11.0) Red Blood Count 3.52x10^6/uL (4.30-5.70) Hemoglobin 9.1g/dL (13.0-17.5) Hematocrit 27.7% (39.0-53.0) Mean Corpuscular Volume 79fL (79-100) Mean Corpuscular Hemoglobin 26pg (25-35) Mean Corpuscular Hemoglobin Concent 33g/dL (31-37) Red Cell Distribution Width 18.7% (11.5-14.5) Platelet Count 130x10^3/uL (140-400) Neutrophils (%) (Auto) 72% (31-73) Lymphocytes (%) (Auto) 19% (24-48) Monocytes (%) (Auto) 8% (0-9) Eosinophils (%) (Auto) 0% (0-3) Basophils (%) (Auto) 1% (0-3) Neutrophils # (Auto) 5.1x10^3uL (1.8-7.7) Lymphocytes # (Auto) 1.3x10^3/uL (1.0-4.8) Monocytes # (Auto) 0.5x10^3/uL (0.0-1.1) Eosinophils # (Auto) 0.0x10^3/uL (0.0-0.7) Basophils # (Auto) 0.1x10^3/uL (0.0-0.2) Potassium Level 4.1mmol/L (3.5-5.1) Chloride Level 90mmol/L (98-107) Carbon Dioxide Level 24mmol/L (21-32) Anion Gap 11 (6-14) Blood Urea Nitrogen 75mg/dL (8-26) Creatinine 2.1mg/dL (0.7-1.3) Estimated GFR (Cockcroft-Gault) 31.2 Glucose Level 166mg/dL (70-99) Lactic Acid Level 1.2mmol/L (0.4-2.0) Calcium Level 7.6mg/dL (8.5-10.1) Phosphorus Level 4.0mg/dL (2.6-4.7) Albumin 2.6g/dL (3.4-5.0) Glucose (Fingerstick) 161mg/dL (70-99) Review of Systems Review of Systems General: weakness GI: Denies nausea, vomiting, diarrhea, constipation Assessment and Plan Assessmemt and Plan Problems Medical Problems: (1) CHF exacerbation Status: Acute CHF exacerbation GI bleed Critical Hypotension PPM CABG Diabetes Hypertension Hyperlipidemia Debility Plan: 1. Continue airway support 2. No diuresis per renal consult - suspecting intravascularly dry 3. Monitor Hg/Hct 4. Recheck labs in AM 5. PT/OT Problems: Comment Review of Relevant I have reviewed the following items dorian (where applicable) has been applied. Labs Laboratory Tests Test 10/28/16 12:56 10/28/16 18:07 10/29/16 04:30 10/29/16 05:00 Glucose (Fingerstick) 175mg/dL (70-99) 148mg/dL (70-99) White Blood Count 7.0x10^3/uL (4.0-11.0) Red Blood Count 3.46x10^6/uL (4.30-5.70) Hemoglobin 9.0g/dL (13.0-17.5) Hematocrit 27.3% (39.0-53.0) Mean Corpuscular Volume 79fL (79-100) Mean Corpuscular Hemoglobin 26pg (25-35) Mean Corpuscular Hemoglobin Concent 33g/dL (31-37) Red Cell Distribution Width 18.8% (11.5-14.5) Platelet Count 106x10^3/uL (140-400) Neutrophils (%) (Auto) 66% (31-73) Lymphocytes (%) (Auto) 26% (24-48) Monocytes (%) (Auto) 8% (0-9) Eosinophils (%) (Auto) 0% (0-3) Basophils (%) (Auto) 0% (0-3) Neutrophils # (Auto) 4.6x10^3uL (1.8-7.7) Lymphocytes # (Auto) 1.8x10^3/uL (1.0-4.8) Monocytes # (Auto) 0.5x10^3/uL (0.0-1.1) Eosinophils # (Auto) 0.0x10^3/uL (0.0-0.7) Basophils # (Auto) 0.0x10^3/uL (0.0-0.2) Sodium Level 123mmol/L (136-145) Potassium Level 4.3mmol/L (3.5-5.1) Chloride Level 90mmol/L (98-107) Carbon Dioxide Level 18mmol/L (21-32) Anion Gap 15 (6-14) Blood Urea Nitrogen 88mg/dL (8-26) Creatinine 3.0mg/dL (0.7-1.3) Estimated GFR (Cockcroft-Gault) 20.7 BUN/Creatinine Ratio 29 (6-20) Glucose Level 141mg/dL (70-99) Serum Osmolality 285mOsm/Kg (279-304) Lactic Acid Level 1.0mmol/L (0.4-2.0) Calcium Level 7.9mg/dL (8.5-10.1) Magnesium Level 2.1mg/dL (1.8-2.4) Total Bilirubin 0.8mg/dL (0.2-1.0) Aspartate Amino Transf (AST/SGOT) 86U/L (15-37) Alanine Aminotransferase (ALT/SGPT) 50U/L (16-63) Alkaline Phosphatase 53U/L (46-116) Total Protein 6.0g/dL (6.4-8.2) Albumin 2.8g/dL (3.4-5.0) Albumin/Globulin Ratio 0.9 (1.0-1.7) Uric Acid 12.7mg/dL (3.5-7.2) Test 10/29/16 07:50 10/29/16 08:00 10/29/16 09:03 10/29/16 11:36 Urine Random Sodium 35mmol/L (Not Estab.) Sodium Level 125mmol/L (136-145) 125mmol/L (136-145) Thyroid Stimulating Hormone (TSH) 3.141uIU/mL (0.358-3.74) Glucose (Fingerstick) 135mg/dL (70-99) Test 10/29/16 12:29 10/29/16 15:35 10/29/16 17:36 10/29/16 20:20 Glucose (Fingerstick) 144mg/dL (70-99) 155mg/dL (70-99) Sodium Level 124mmol/L (136-145) 124mmol/L (136-145) Test 10/30/16 00:00 10/30/16 04:45 10/30/16 07:21 Sodium Level 125mmol/L (136-145) 125mmol/L (136-145) White Blood Count 7.0x10^3/uL (4.0-11.0) Red Blood Count 3.52x10^6/uL (4.30-5.70) Hemoglobin 9.1g/dL (13.0-17.5) Hematocrit 27.7% (39.0-53.0) Mean Corpuscular Volume 79fL (79-100) Mean Corpuscular Hemoglobin 26pg (25-35) Mean Corpuscular Hemoglobin Concent 33g/dL (31-37) Red Cell Distribution Width 18.7% (11.5-14.5) Platelet Count 130x10^3/uL (140-400) Neutrophils (%) (Auto) 72% (31-73) Lymphocytes (%) (Auto) 19% (24-48) Monocytes (%) (Auto) 8% (0-9) Eosinophils (%) (Auto) 0% (0-3) Basophils (%) (Auto) 1% (0-3) Neutrophils # (Auto) 5.1x10^3uL (1.8-7.7) Lymphocytes # (Auto) 1.3x10^3/uL (1.0-4.8) Monocytes # (Auto) 0.5x10^3/uL (0.0-1.1) Eosinophils # (Auto) 0.0x10^3/uL (0.0-0.7) Basophils # (Auto) 0.1x10^3/uL (0.0-0.2) Potassium Level 4.1mmol/L (3.5-5.1) Chloride Level 90mmol/L (98-107) Carbon Dioxide Level 24mmol/L (21-32) Anion Gap 11 (6-14) Blood Urea Nitrogen 75mg/dL (8-26) Creatinine 2.1mg/dL (0.7-1.3) Estimated GFR (Cockcroft-Gault) 31.2 Glucose Level 166mg/dL (70-99) Lactic Acid Level 1.2mmol/L (0.4-2.0) Calcium Level 7.6mg/dL (8.5-10.1) Phosphorus Level 4.0mg/dL (2.6-4.7) Albumin 2.6g/dL (3.4-5.0) Glucose (Fingerstick) 161mg/dL (70-99) Laboratory Tests Test 10/29/16 12:29 10/29/16 15:35 10/29/16 17:36 10/29/16 20:20 Glucose (Fingerstick) 144mg/dL (70-99) 155mg/dL (70-99) Sodium Level 124mmol/L (136-145) 124mmol/L (136-145) Test 10/30/16 00:00 10/30/16 04:45 10/30/16 07:21 Sodium Level 125mmol/L (136-145) 125mmol/L (136-145) White Blood Count 7.0x10^3/uL (4.0-11.0) Red Blood Count 3.52x10^6/uL (4.30-5.70) Hemoglobin 9.1g/dL (13.0-17.5) Hematocrit 27.7% (39.0-53.0) Mean Corpuscular Volume 79fL (79-100) Mean Corpuscular Hemoglobin 26pg (25-35) Mean Corpuscular Hemoglobin Concent 33g/dL (31-37) Red Cell Distribution Width 18.7% (11.5-14.5) Platelet Count 130x10^3/uL (140-400) Neutrophils (%) (Auto) 72% (31-73) Lymphocytes (%) (Auto) 19% (24-48) Monocytes (%) (Auto) 8% (0-9) Eosinophils (%) (Auto) 0% (0-3) Basophils (%) (Auto) 1% (0-3) Neutrophils # (Auto) 5.1x10^3uL (1.8-7.7) Lymphocytes # (Auto) 1.3x10^3/uL (1.0-4.8) Monocytes # (Auto) 0.5x10^3/uL (0.0-1.1) Eosinophils # (Auto) 0.0x10^3/uL (0.0-0.7) Basophils # (Auto) 0.1x10^3/uL (0.0-0.2) Potassium Level 4.1mmol/L (3.5-5.1) Chloride Level 90mmol/L (98-107) Carbon Dioxide Level 24mmol/L (21-32) Anion Gap 11 (6-14) Blood Urea Nitrogen 75mg/dL (8-26) Creatinine 2.1mg/dL (0.7-1.3) Estimated GFR (Cockcroft-Gault) 31.2 Glucose Level 166mg/dL (70-99) Lactic Acid Level 1.2mmol/L (0.4-2.0) Calcium Level 7.6mg/dL (8.5-10.1) Phosphorus Level 4.0mg/dL (2.6-4.7) Albumin 2.6g/dL (3.4-5.0) Glucose (Fingerstick) 161mg/dL (70-99) Microbiology 10/27/16 Urine Culture - Final, Complete 10/27/16 Urine Culture Result 1 (JANEL) - Final, Complete Medications Current Medications Pantoprazole Sodium 40 mg 40 mg DAILYAC IVP Last administered on 10/30/16 08:32 ; Start 10/26/16 at 17:00 Dobutamine HCl/ Dextrose 250 ml @ 0 mls/hr CONT PRN IV SEE I/O RECORD Last administered on 10/29/16 03:02; Start 10/26/16 at 17:00; Stop 10/30/16 at 10:57 ; Status DC Furosemide (Lasix) 60 mg 1X ONCE IVP Last administered on 10/27/16 08:15; Start 10/27/16 at 08:30; Stop 10/27/16 at 08:31; Status DC Sodium Bicarbonate 50 meq Q2HR IV Last administered on 10/27/16 12:38; Start 10/27/16 at 10:00; Stop 10/27/16 at 12:01; Status DC Albuterol/ Ipratropium (Duoneb) 3 ml RTQID NEB Last administered on 10/30/16 08 :32; Start 10/27/16 at 12:00 Heparin Sodium (Porcine) (Heparin Sodium) 10,000 unit STK-MED ONCE .ROUTE ; Start 10/27/16 at 10:01; Stop 10/27/16 at 10:02; Status DC Lidocaine/Sodium Bicarbonate 20 ml 20 ml STK-MED ONCE IJ ; Start 10/27/16 at 10: 01; Stop 10/27/16 at 10:02; Status DC Heparin Sodium/ Sodium Chloride 500 ml @ As Directed STK-MED ONCE .ROUTE ; Start 10/27/16 at 10:01; Stop 10/27/16 at 10:02; Status DC Lidocaine/Sodium Bicarbonate (Buffered Lidocaine 1%) 3 ml 1X ONCE IJ Last administered on 10/27/16 12:16; Start 10/27/16 at 10:15; Stop 10/27/16 at 10:16 ; Status DC Heparin Sodium/ Sodium Chloride 60 unit 1X ONCE IV Last administered on 12:14; Start 10/27/16 at 10:15; Stop 10/27/16 at 10:16; Status DC Heparin Sodium (Porcine) (Heparin Sodium) 2,500 unit 1X ONCE INT CAT Last administered on 10/27/16 12:16; Start 10/27/16 at 10:15; Stop 10/27/16 at 10:16 ; Status DC Aspirin (Krystian Aspirin) 325 mg DAILY PO Last administered on 10/30/16 08:29; Start 10/27/16 at 12:00 Vitamin D (Vitamin D3) 1,000 unit DAILY PO Last administered on 10/30/16 08:24 ; Start 10/27/16 at 12:00 Diltiazem HCl (Cardizem Cd) 300 mg DAILY PO Last administered on 10/30/16 08:23 ; Start 10/27/16 at 12:00 Furosemide (Lasix) 40 mg [id number] PO Last administered on 10/28/16 17:13; Start 10/27/16 at 12:00; Stop 10/29/16 at 07:12; Status DC Insulin Aspart (Novolog) 11 units TIDWMEALS SQ Last administered on 10/30/16 08 :29; Start 10/27/16 at 12:00 Levothyroxine Sodium (Synthroid) 125 mcg DAILY07 PO Last administered on 06:58; Start 10/27/16 at 12:00 Lisinopril (Prinivil) 40 mg DAILY PO Last administered on 10/27/16 13:22; Start 10/27/16 at 12:00 Methocarbamol (Robaxin) 500 mg PRN TID PRN PO MUSCLE SPASMS Last administered on 10/30/16 01:25; Start 10/27/16 at 11:15 Tamsulosin HCl (Flomax) 0.4 mg QHS PO Last administered on 10/29/16 20:55; Start 10/27/16 at 21:00 Albuterol Sulfate (Ventolin Neb Soln) 2.5 mg PRN Q4HRS PRN NEB SHORTNESS OF BREATH Last administered on 10/30/16 01:38; Start 10/27/16 at 11:30 Brimonidine Tartrate (Alphagan) 1 drop BID OU Last administered on 10/30/16 09: 27; Start 10/27/16 at 12:00 Artificial Tears (Artificial Tears) 1 drop PRN Q15MIN PRN OU DRY EYE; Start at 11:30 Ferrous Sulfate (Feosol) 325 mg BIDWMEALS PO Last administered on 10/30/16 08: 24; Start 10/27/16 at 12:00 Gabapentin (Neurontin) 300 mg BID PO Last administered on 10/30/16 08:23; Start 10/27/16 at 12:00 Non-Formulary Medication 1 inh QID IH ; Start 10/27/16 at 13:00; Status UNV Non-Formulary Medication 1 each TID TP ; Start 10/27/16 at 14:00; Status UNV Non-Formulary Medication 1 tab BID PO ; Start 10/27/16 at 21:00; Status UNV Potassium Chloride (Klor-Con) 10 meq [id number] PO Last administered on 09:26; Start 10/28/16 at 08:00 Atorvastatin Calcium (Lipitor) 20 mg QHS PO Last administered on 10/29/16 20: 55; Start 10/27/16 at 21:00 Linagliptin (Tradjenta) 5 mg DAILY PO Last administered on 10/30/16 08:23; Start 10/27/16 at 12:00 Furosemide (Lasix) 60 mg 1X ONCE IVP ; Start 10/28/16 at 08:00; Stop 10/28/16 at 08:01; Status DC Sodium Bicarbonate 50 meq 50 meq Q2HR IV Last administered on 10/29/16 10:14; Start 10/29/16 at 08:00; Stop 10/29/16 at 10:01; Status DC Sodium Bicarbonate 150 meq/Sterile Water 1,150 ml @ 80 mls/hr [id number] PRN IV . Last administered on 10/29/16 16:41; Start 10/29/16 at 07:45 Sodium Chloride (Hypertonic Saline) 500 ml @ 30 mls/hr CONT PRN PRN IV see comments; Start 10/29/16 at 07:45 Acetaminophen (Tylenol) 650 mg PRN Q6HRS PRN PO PAIN Last administered on 19:25; Start 10/29/16 at 11:15 Nystatin (Nystop) 1 summer TID PRN PRN TP REDNESS; Start 10/29/16 at 11:15 Multi-Ingredient Ointment 1 summer 1 summer PRN QID PRN TP MUSCLE PAIN Last administered on 10/29/16t 19:25; Start 10/29/16 at 11:15 Magnesium Sulfate/ Dextrose 50 ml @ 25 mls/hr PRN DAILY PRN IV for Mag < 1.7 on am labs; Start 10/30/16 at 09:45 Dobutamine HCl/ Dextrose 250 ml @ 0 mls/hr CONT PRN IV SEE I/O RECORD; Start at 11:00 Active Scripts Active Reported Tamsulosin Hcl 0.4 Mg Cap.er.24h 0.4 Mg PO QHS Onglyza (Saxagliptin Hcl) 5 Mg Tablet 1 Tab PO DAILY Crestor (Rosuvastatin Calcium) 10 Mg Tablet 0.5 Tab PO DAILY Potassium Chloride 20 Meq Tablet.er 10 Meq PO DAILY Omeprazole 20 Mg Tablet.dr 1 Tab PO BID Nitrostat (Nitroglycerin) 0.3 Mg Tab.subl 0.3 Mg SL PRN Q5MIN PRN Methocarbamol 500 Mg Tablet 500 Mg PO PRN TID PRN Bengay Ultra Strength (Menthol) 1 Each Adh..patch 1 Each TP TID Lisinopril 40 Mg Tablet 1 Tab PO DAILY Levothyroxine Sodium 125 Mcg Tablet 1 Tab PO DAILY Novolog Flexpen (Insulin Aspart) 100 Unit/1 Ml Insuln.pen 11 Unit SQ TIDWMEALS Gabapentin 300 Mg Capsule 300 Mg PO TID Furosemide 40 Mg Tablet 40 Mg PO BID Ferrous Sulfate 324 Mg Tablet.dr 324 Mg PO BID Cardizem Cd (Diltiazem Hcl) 300 Mg Cap.er.24h 300 Mg PO DAILY Vitamin D3 (Cholecalciferol (Vitamin D3)) 1,000 Unit Tablet 1 Tab PO DAILY Refresh Optive Advanced Drops (Carboxymethyl/Glycerin/Poly80) 10 Ml Drops 1 Drop OP PRN QID PRN Alphagan P (Brimonidine Tartrate) 5 Ml Drops 1 Drop EACHEYE BID Aspirin 325 Mg Tablet 1 Tab PO DAILY Albuterol Sulfate Conc Neb Soln (Albuterol Sulfate) 2.5 Mg/0.5 Ml Vial.neb 1 Vial NEB Q4HRS Combivent Respimat Inhal (Ipratropium/Albuterol Sulfate) 4 Gm Aer.w.adap 1 Inh IH QID Vitals/I & O Vital Sign - Last 24 Hours 10/29/16 10/29/16 10/29/16 10/29/16 12:00 12:00 12:37 13:00 Temp 97.7 97.7 Pulse 70 70 Resp 24 B/P 101/47 78/42 Pulse Ox 96 96 100 O2 Delivery Nasal Cannula Nasal Cannula Nasal Cannula Ventilator O2 Flow Rate 3.5 3.5 3.0 10/29/16 10/29/16 10/29/16 10/29/16 14:00 15:00 16:00 16:00 Temp 97.6 97.6 Pulse 70 70 70 Resp 18 B/P 79/40 74/39 78/44 Pulse Ox 100 100 99 O2 Delivery Nasal Cannula Nasal Cannula Nasal Cannula Nasal Cannula O2 Flow Rate 3.5 3.5 3.5 3.5 10/29/16 10/29/16 10/29/16 10/29/16 16:14 17:00 18:00 19:26 Temp 97.7 97.7 Pulse 70 70 75 Resp 24 B/P 100/52 95/45 101/50 Pulse Ox 95 99 99 98 O2 Delivery Nasal Cannula Nasal Cannula Nasal Cannula Nasal Cannula O2 Flow Rate 3.0 3.5 3.5 3.5 10/29/16 10/29/16 10/29/16 10/29/16 19:38 20:02 20:58 21:45 Pulse 75 Resp 22 B/P 112/51 Pulse Ox 100 100 100 O2 Delivery Nasal Cannula Nasal Cannula Nasal Cannula BiPAP/CPAP O2 Flow Rate 3.5 3.0 3.5 10/29/16 10/29/16 10/29/16 10/29/16 22:02 23:14 23:23 23:35 Temp 98.3 98.3 Pulse 71 71 Resp 19 24 B/P 96/54 103/58 Pulse Ox 97 96 96 O2 Delivery BiPAP/CPAP BiPAP/CPAP Bi-pap BiPAP/CPAP 10/30/16 10/30/16 10/30/16 10/30/16 00:06 01:04 01:38 01:44 Pulse 71 72 Resp 24 27 B/P 103/55 118/58 Pulse Ox 100 98 92 96 O2 Delivery BiPAP/CPAP BiPAP/CPAP Nasal Cannula BiPAP/CPAP O2 Flow Rate 3.0 10/30/16 10/30/16 10/30/16 10/30/16 02:09 02:37 03:00 04:15 Temp 98.5 98.5 Pulse 76 76 76 Resp B/P 93/53 112/48 133/60 Pulse Ox 96 96 94 97 O2 Delivery BiPAP/CPAP BiPAP/CPAP BiPAP/CPAP BiPAP/CPAP 10/30/16 10/30/16 10/30/16 10/30/16 04:17 05:42 06:02 06:57 Pulse 71 71 76 Resp B/P 128/62 134/56 134/55 Pulse Ox 96 92 97 O2 Delivery Bi-pap Nasal Cannula Nasal Cannula BiPAP/CPAP O2 Flow Rate 4.0 4.0 10/30/16 10/30/16 10/30/16 10/30/16 07:41 08:00 08:23 08:31 Temp 98.4 98.4 Pulse 76 76 76 B/P 126/54 126/54 124/54 Pulse Ox 92 O2 Delivery Nasal Cannula Nasal Cannula O2 Flow Rate 3.5 4.0 10/30/16 10/30/16 10/30/16 10/30/16 08:32 09:00 10:00 11:00 Pulse 76 70 75 B/P 119/43 113/49 80/49 Pulse Ox 93 86 96 93 O2 Delivery Nasal Cannula Nasal Cannula BiPAP/CPAP BiPAP/CPAP O2 Flow Rate 3.0 4.0 Intake and Output 10/29/16 10/29/16 10/30/16 15:00 23:00 07:00 Intake Total 400 ml 575 ml 1635 ml Output Total 1425 ml 530 ml 1155 ml Balance -1025 ml 45 ml 480 ml CASTLE,NIAL K III DO October 30, 2016 11:54
--- NOTE | 2016-10-30 11:58 | PDOC ---
Subjective: Subjective: Denies GI complaints. Objective: Objective: Per RN - doing well GI-ghosh, tolerating ADA. Repeating echocardiogram today. Vital Signs: Vital Signs Date Time Temp Pulse Resp B/P Pulse Ox O2 Delivery O2 Flow Rate FiO2 10/30/16 11:00 75 80/49 93 BiPAP/CPAP 10/30/16 09:00 4.0 10/30/16 08:00 98.4 98.4 10/30/16 06:57 19 Labs: Laboratory Tests Test 10/29/16 12:29 10/29/16 17:36 10/30/16 07:21 Glucose (Fingerstick) 144mg/dL (70-99) 155mg/dL (70-99) 161mg/dL (70-99) PE: GEN: NAD LUNGS: BiPAP HEART: echocardiogram in process ABD: NABS, S/ND/NT NEURO/PSYCH: A & O 3 A/P: CHF, resp failure, BELINDA Anemia - Hgb stable -h/o since 08/2016, previously on Plavix -no obvious bleeding -h/o GERD on PPI -EGD and colonoscopy at [facility] in 07/2016 -- Change to PO PPI. Other per Dr. Hayden. CECILIA DOWD October 30, 2016 11:58
[2016-10-30 12:41] LABS: % SAT IRON 4 % (15-34); IRON,SERUM 11 ug/dL (65-175)
[2016-10-30 12:54] LABS: BILIRUBIN,URINE NEGATIVE (NEG); GLUCOSE,URINE NEGATIVE (NEG); NITRITE,URINE NEGATIVE (NEG); PH,URINE 5.5; PROTEIN,URINE NEGATIVE (NEG-TRACE)
[2016-10-30 13:19] LABS: RBC,URINE 20-40 /HPF (0-2)
[2016-10-30 13:20] LABS: BACTERIA,URINE 0 /HPF (0-FEW); SQUAMOUS EPITHELIAL CELL,UR FEW /LPF
[2016-10-30] MEDS: METHYL SALICYLATE/MENTHOL TOPICAL OINTMENT 29GM TUBE. TP PRN (16:52)
[2016-10-30] MEDS: ACETAMINOPHEN 325 MG TABLET. PO PRN (16:52)
--- NOTE | 2016-10-30 17:01 | CARD ---
APPROVED REPORT EXAM: LIMITED Two-dimensional echocardiogram. Other Information Quality : Good INDICATION Non STEMI LEFT VENTRICLE The left ventricle is normal size. There is normal left ventricular wall thickness. The Ejection Frac tion is 30% to 35%. This is off the dobutamine drip and it shows a significant decrease in the LV EF. There is global hypokinesis of the left ventricle. Apical motion consistent with pacemaker activatio n. GREAT VESSELS Aortic root was not visualized PERICARDIAL EFFUSION There is no evidence of significant pericardial effusion. Critical Notification Critical Value: No <Conclusion> The Ejection Fraction is 30% to 35%. This is off the dobutamine drip and it shows a significant decre ase in the LV EF. There is global hypokinesis of the left ventricle. Apical motion consistent with pacemaker activation. There is no evidence of significant pericardial effusion.
--- NOTE | 2016-10-30 17:11 | PDOC ---
PROGRESS NOTES Subjective Subjective Patient having more difficulty breathing today. The dobutamine drip was turned off yesterday. A limited echocardiogram was done to evaluate the present left ventricular function. It shows a decreased left ventricular ejection fraction in the 30-35% which is a significant decrease from 50%. Objective Objective Vital Signs Date Time Temp Pulse Resp B/P Pulse Ox O2 Delivery O2 Flow Rate FiO2 10/30/16 16:27 91 Nasal Cannula 5.0 10/30/16 12:02 98.0 71 21 84/43 98.0 Intake and Output 10/30/16 07:00 Intake Total 2610 ml Output Total 3110 ml Balance -500 ml Intake Oral 1525 ml IV Total 1085 ml Output Urine Total 3110 ml Physical Exam Physical Exam Lungs with diffuse rhonchi and Rales and mild wheezing. Heart no changes. Assessment Assessment This patient with severe cardiac pulmonary and renal issues seems to be getting decompensated again since the stoppage of the dobutamine drip. The LVEF has decreased off the dobutamine and I would say that this is also causing a lot of the renal problems due to poor renal perfusion with a low cardiac output. He behaves like someone with a left main or left main equivalent-type profile picture. May need to do a heart catheterization soon to evaluate the coronaries. I would like to be able to talk and communicate with the patient's family to inform them of the patient's situation as well as the prognosis. CODE STATUS is something that needs to be discussed also. Problems Medical Problems: (1) CHF exacerbation Status: Acute Comment Review of Relevant I have reviewed the following items dorian (where applicable) has been applied. Labs Laboratory Tests Test 10/28/16 18:07 10/29/16 04:30 10/29/16 05:00 10/29/16 07:50 Glucose (Fingerstick) 148mg/dL (70-99) White Blood Count 7.0x10^3/uL (4.0-11.0) Red Blood Count 3.46x10^6/uL (4.30-5.70) Hemoglobin 9.0g/dL (13.0-17.5) Hematocrit 27.3% (39.0-53.0) Mean Corpuscular Volume 79fL (79-100) Mean Corpuscular Hemoglobin 26pg (25-35) Mean Corpuscular Hemoglobin Concent 33g/dL (31-37) Red Cell Distribution Width 18.8% (11.5-14.5) Platelet Count 106x10^3/uL (140-400) Neutrophils (%) (Auto) 66% (31-73) Lymphocytes (%) (Auto) 26% (24-48) Monocytes (%) (Auto) 8% (0-9) Eosinophils (%) (Auto) 0% (0-3) Basophils (%) (Auto) 0% (0-3) Neutrophils # (Auto) 4.6x10^3uL (1.8-7.7) Lymphocytes # (Auto) 1.8x10^3/uL (1.0-4.8) Monocytes # (Auto) 0.5x10^3/uL (0.0-1.1) Eosinophils # (Auto) 0.0x10^3/uL (0.0-0.7) Basophils # (Auto) 0.0x10^3/uL (0.0-0.2) Sodium Level 123mmol/L (136-145) Potassium Level 4.3mmol/L (3.5-5.1) Chloride Level 90mmol/L (98-107) Carbon Dioxide Level 18mmol/L (21-32) Anion Gap 15 (6-14) Blood Urea Nitrogen 88mg/dL (8-26) Creatinine 3.0mg/dL (0.7-1.3) Estimated GFR (Cockcroft-Gault) 20.7 BUN/Creatinine Ratio 29 (6-20) Glucose Level 141mg/dL (70-99) Serum Osmolality 285mOsm/Kg (279-304) Lactic Acid Level 1.0mmol/L (0.4-2.0) Calcium Level 7.9mg/dL (8.5-10.1) Magnesium Level 2.1mg/dL (1.8-2.4) Total Bilirubin 0.8mg/dL (0.2-1.0) Aspartate Amino Transf (AST/SGOT) 86U/L (15-37) Alanine Aminotransferase (ALT/SGPT) 50U/L (16-63) Alkaline Phosphatase 53U/L (46-116) Total Protein 6.0g/dL (6.4-8.2) Albumin 2.8g/dL (3.4-5.0) Albumin/Globulin Ratio 0.9 (1.0-1.7) Uric Acid 12.7mg/dL (3.5-7.2) Urine Osmolality 393mOsmol/kg (.) Urine Random Sodium 35mmol/L (Not Estab.) Test 10/29/16 08:00 10/29/16 09:03 10/29/16 11:36 10/29/16 12:29 Sodium Level 125mmol/L (136-145) 125mmol/L (136-145) Thyroid Stimulating Hormone (TSH) 3.141uIU/mL (0.358-3.74) Glucose (Fingerstick) 135mg/dL (70-99) 144mg/dL (70-99) Test 10/29/16 15:35 10/29/16 17:36 10/29/16 20:20 10/30/16 00:00 Sodium Level 124mmol/L (136-145) 124mmol/L (136-145) 125mmol/L (136-145) Glucose (Fingerstick) 155mg/dL (70-99) Test 10/30/16 04:45 10/30/16 07:21 10/30/16 12:35 10/30/16 14:00 White Blood Count 7.0x10^3/uL (4.0-11.0) Red Blood Count 3.52x10^6/uL (4.30-5.70) Hemoglobin 9.1g/dL (13.0-17.5) Hematocrit 27.7% (39.0-53.0) Mean Corpuscular Volume 79fL (79-100) Mean Corpuscular Hemoglobin 26pg (25-35) Mean Corpuscular Hemoglobin Concent 33g/dL (31-37) Red Cell Distribution Width 18.7% (11.5-14.5) Platelet Count 130x10^3/uL (140-400) Neutrophils (%) (Auto) 72% (31-73) Lymphocytes (%) (Auto) 19% (24-48) Monocytes (%) (Auto) 8% (0-9) Eosinophils (%) (Auto) 0% (0-3) Basophils (%) (Auto) 1% (0-3) Neutrophils # (Auto) 5.1x10^3uL (1.8-7.7) Lymphocytes # (Auto) 1.3x10^3/uL (1.0-4.8) Monocytes # (Auto) 0.5x10^3/uL (0.0-1.1) Eosinophils # (Auto) 0.0x10^3/uL (0.0-0.7) Basophils # (Auto) 0.1x10^3/uL (0.0-0.2) Reticulocyte Count (auto) 1.1% (0.5-2.5) Sodium Level 125mmol/L (136-145) Potassium Level 4.1mmol/L (3.5-5.1) Chloride Level 90mmol/L (98-107) Carbon Dioxide Level 24mmol/L (21-32) Anion Gap 11 (6-14) Blood Urea Nitrogen 75mg/dL (8-26) Creatinine 2.1mg/dL (0.7-1.3) Estimated GFR (Cockcroft-Gault) 31.2 Glucose Level 166mg/dL (70-99) Lactic Acid Level 1.2mmol/L (0.4-2.0) Calcium Level 7.6mg/dL (8.5-10.1) Phosphorus Level 4.0mg/dL (2.6-4.7) Iron Level 11ug/dL (65-175) Total Iron Binding Capacity 279ug/dL (250-450) Iron Saturation 4% (15-34) Ferritin 660ng/mL (26-388) Albumin 2.6g/dL (3.4-5.0) Cortisol AM Sample 23.2ug/dL (6.2-19.4) Glucose (Fingerstick) 161mg/dL (70-99) 148mg/dL (70-99) Urine Collection Type U cath Urine Color Yellow Urine Clarity Cloudy Urine pH 5.5 Urine Specific [place] 1.015 Urine Protein Negativemg/dL (NEG-TRACE) Urine Glucose (UA) Negativemg/dL (NEG) Urine Ketones (Stick) Negativemg/dL (NEG) Urine Blood Large (NEG) Urine Nitrite Negative (NEG) Urine Bilirubin Negative (NEG) Urine Urobilinogen Dipstick 1.0mg/dL (0.2 mg/dL) Urine Leukocyte Esterase Negative (NEG) Urine RBC 20-40/HPF (0-2) Urine WBC 1-4/HPF (0-4) Urine Squamous Epithelial Cells Few/LPF Urine Amorphous Sediment Present/HPF Urine Bacteria 0/HPF (0-FEW) Urine Hyaline Casts Few/HPF Urine Granular Casts Few/HPF Urine Mucus Slight/LPF Test 10/30/16 14:10 10/30/16 16:57 Glucose (Fingerstick) 153mg/dL (70-99) 149mg/dL (70-99) Laboratory Tests Test 10/29/16 17:36 10/29/16 20:20 10/30/16 00:00 10/30/16 04:45 Glucose (Fingerstick) 155mg/dL (70-99) Sodium Level 124mmol/L (136-145) 125mmol/L (136-145) 125mmol/L (136-145) White Blood Count 7.0x10^3/uL (4.0-11.0) Red Blood Count 3.52x10^6/uL (4.30-5.70) Hemoglobin 9.1g/dL (13.0-17.5) Hematocrit 27.7% (39.0-53.0) Mean Corpuscular Volume 79fL (79-100) Mean Corpuscular Hemoglobin 26pg (25-35) Mean Corpuscular Hemoglobin Concent 33g/dL (31-37) Red Cell Distribution Width 18.7% (11.5-14.5) Platelet Count 130x10^3/uL (140-400) Neutrophils (%) (Auto) 72% (31-73) Lymphocytes (%) (Auto) 19% (24-48) Monocytes (%) (Auto) 8% (0-9) Eosinophils (%) (Auto) 0% (0-3) Basophils (%) (Auto) 1% (0-3) Neutrophils # (Auto) 5.1x10^3uL (1.8-7.7) Lymphocytes # (Auto) 1.3x10^3/uL (1.0-4.8) Monocytes # (Auto) 0.5x10^3/uL (0.0-1.1) Eosinophils # (Auto) 0.0x10^3/uL (0.0-0.7) Basophils # (Auto) 0.1x10^3/uL (0.0-0.2) Reticulocyte Count (auto) 1.1% (0.5-2.5) Potassium Level 4.1mmol/L (3.5-5.1) Chloride Level 90mmol/L (98-107) Carbon Dioxide Level 24mmol/L (21-32) Anion Gap 11 (6-14) Blood Urea Nitrogen 75mg/dL (8-26) Creatinine 2.1mg/dL (0.7-1.3) Estimated GFR (Cockcroft-Gault) 31.2 Glucose Level 166mg/dL (70-99) Lactic Acid Level 1.2mmol/L (0.4-2.0) Calcium Level 7.6mg/dL (8.5-10.1) Phosphorus Level 4.0mg/dL (2.6-4.7) Iron Level 11ug/dL (65-175) Total Iron Binding Capacity 279ug/dL (250-450) Iron Saturation 4% (15-34) Ferritin 660ng/mL (26-388) Albumin 2.6g/dL (3.4-5.0) Cortisol AM Sample 23.2ug/dL (6.2-19.4) Test 10/30/16 07:21 10/30/16 12:35 10/30/16 14:00 10/30/16 14:10 Glucose (Fingerstick) 161mg/dL (70-99) 148mg/dL (70-99) 153mg/dL (70-99) Urine Collection Type U cath Urine Color Yellow Urine Clarity Cloudy Urine pH 5.5 Urine Specific [place] 1.015 Urine Protein Negativemg/dL (NEG-TRACE) Urine Glucose (UA) Negativemg/dL (NEG) Urine Ketones (Stick) Negativemg/dL (NEG) Urine Blood Large (NEG) Urine Nitrite Negative (NEG) Urine Bilirubin Negative (NEG) Urine Urobilinogen Dipstick 1.0mg/dL (0.2 mg/dL) Urine Leukocyte Esterase Negative (NEG) Urine RBC 20-40/HPF (0-2) Urine WBC 1-4/HPF (0-4) Urine Squamous Epithelial Cells Few/LPF Urine Amorphous Sediment Present/HPF Urine Bacteria 0/HPF (0-FEW) Urine Hyaline Casts Few/HPF Urine Granular Casts Few/HPF Urine Mucus Slight/LPF Test 10/30/16 16:57 Glucose (Fingerstick) 149mg/dL (70-99) Microbiology 10/27/16 Urine Culture - Final, Complete 10/27/16 Urine Culture Result 1 (JANEL) - Final, Complete Medications Current Medications Pantoprazole Sodium 40 mg 40 mg DAILYAC IVP Last administered on 10/30/16 08:32 ; Start 10/26/16 at 17:00; Stop 10/30/16 at 11:57; Status DC Dobutamine HCl/ Dextrose 250 ml @ 0 mls/hr CONT PRN IV SEE I/O RECORD Last administered on 10/29/16 03:02; Start 10/26/16 at 17:00; Stop 10/30/16 at 10:57 ; Status DC Furosemide (Lasix) 60 mg 1X ONCE IVP Last administered on 10/27/16 08:15; Start 10/27/16 at 08:30; Stop 10/27/16 at 08:31; Status DC Sodium Bicarbonate 50 meq Q2HR IV Last administered on 10/27/16 12:38; Start 10/27/16 at 10:00; Stop 10/27/16 at 12:01; Status DC Albuterol/ Ipratropium (Duoneb) 3 ml RTQID NEB Last administered on 10/30/16 16 :25; Start 10/27/16 at 12:00 Heparin Sodium (Porcine) (Heparin Sodium) 10,000 unit STK-MED ONCE .ROUTE ; Start 10/27/16 at 10:01; Stop 10/27/16 at 10:02; Status DC Lidocaine/Sodium Bicarbonate 20 ml 20 ml STK-MED ONCE IJ ; Start 10/27/16 at 10: 01; Stop 10/27/16 at 10:02; Status DC Heparin Sodium/ Sodium Chloride 500 ml @ As Directed STK-MED ONCE .ROUTE ; Start 10/27/16 at 10:01; Stop 10/27/16 at 10:02; Status DC Lidocaine/Sodium Bicarbonate (Buffered Lidocaine 1%) 3 ml 1X ONCE IJ Last administered on 10/27/16 12:16; Start 10/27/16 at 10:15; Stop 10/27/16 at 10:16 ; Status DC Heparin Sodium/ Sodium Chloride 60 unit 1X ONCE IV Last administered on 12:14; Start 10/27/16 at 10:15; Stop 10/27/16 at 10:16; Status DC Heparin Sodium (Porcine) (Heparin Sodium) 2,500 unit 1X ONCE INT CAT Last administered on 10/27/16 12:16; Start 10/27/16 at 10:15; Stop 10/27/16 at 10:16 ; Status DC Aspirin (Krystian Aspirin) 325 mg DAILY PO Last administered on 10/30/16 08:29; Start 10/27/16 at 12:00 Vitamin D (Vitamin D3) 1,000 unit DAILY PO Last administered on 10/30/16 08:24 ; Start 10/27/16 at 12:00 Diltiazem HCl (Cardizem Cd) 300 mg DAILY PO Last administered on 10/30/16 08:23 ; Start 10/27/16 at 12:00 Furosemide (Lasix) 40 mg [id number] PO Last administered on 10/28/16 17:13; Start 10/27/16 at 12:00; Stop 10/29/16 at 07:12; Status DC Insulin Aspart (Novolog) 11 units TIDWMEALS SQ Last administered on 10/30/16 08 :29; Start 10/27/16 at 12:00 Levothyroxine Sodium (Synthroid) 125 mcg DAILY07 PO Last administered on 06:58; Start 10/27/16 at 12:00 Lisinopril (Prinivil) 40 mg DAILY PO Last administered on 10/27/16 13:22; Start 10/27/16 at 12:00 Methocarbamol (Robaxin) 500 mg PRN TID PRN PO MUSCLE SPASMS Last administered on 10/30/16 01:25; Start 10/27/16 at 11:15 Tamsulosin HCl (Flomax) 0.4 mg QHS PO Last administered on 10/29/16 20:55; Start 10/27/16 at 21:00 Albuterol Sulfate (Ventolin Neb Soln) 2.5 mg PRN Q4HRS PRN NEB SHORTNESS OF BREATH Last administered on 10/30/16 01:38; Start 10/27/16 at 11:30 Brimonidine Tartrate (Alphagan) 1 drop BID OU Last administered on 10/30/16 09: 27; Start 10/27/16 at 12:00 Artificial Tears (Artificial Tears) 1 drop PRN Q15MIN PRN OU DRY EYE; Start at 11:30 Ferrous Sulfate (Feosol) 325 mg BIDWMEALS PO Last administered on 10/30/16 08: 24; Start 10/27/16 at 12:00 Gabapentin (Neurontin) 300 mg BID PO Last administered on 10/30/16 08:23; Start 10/27/16 at 12:00 Non-Formulary Medication 1 inh QID IH ; Start 10/27/16 at 13:00; Status UNV Non-Formulary Medication 1 each TID TP ; Start 10/27/16 at 14:00; Status UNV Non-Formulary Medication 1 tab BID PO ; Start 10/27/16 at 21:00; Status UNV Potassium Chloride (Klor-Con) 10 meq [id number] PO Last administered on 09:26; Start 10/28/16 at 08:00 Atorvastatin Calcium (Lipitor) 20 mg QHS PO Last administered on 10/29/16 20: 55; Start 10/27/16 at 21:00 Linagliptin (Tradjenta) 5 mg DAILY PO Last administered on 10/30/16 08:23; Start 10/27/16 at 12:00 Furosemide (Lasix) 60 mg 1X ONCE IVP ; Start 10/28/16 at 08:00; Stop 10/28/16 at 08:01; Status DC Sodium Bicarbonate 50 meq 50 meq Q2HR IV Last administered on 10/29/16 10:14; Start 10/29/16 at 08:00; Stop 10/29/16 at 10:01; Status DC Sodium Bicarbonate 150 meq/Sterile Water 1,150 ml @ 80 mls/hr [id number] PRN IV . Last administered on 10/29/16 16:41; Start 10/29/16 at 07:45; Stop 10/30/16 at 12:28; Status DC Sodium Chloride (Hypertonic Saline) 500 ml @ 30 mls/hr CONT PRN PRN IV see comments; Start 10/29/16 at 07:45; Stop 10/30/16 at 12:28; Status DC Acetaminophen (Tylenol) 650 mg PRN Q6HRS PRN PO PAIN Last administered on 16:52; Start 10/29/16 at 11:15 Nystatin (Nystop) 1 summer TID PRN PRN TP REDNESS; Start 10/29/16 at 11:15 Multi-Ingredient Ointment 1 summer 1 summer PRN QID PRN TP MUSCLE PAIN Last administered on 10/30/16 16:52; Start 10/29/16 at 11:15 Magnesium Sulfate/ Dextrose 50 ml @ 25 mls/hr PRN DAILY PRN IV for Mag < 1.7 on am labs; Start 10/30/16 at 09:45 Dobutamine HCl/ Dextrose 250 ml @ 0 mls/hr CONT PRN IV SEE I/O RECORD; Start at 11:00 Pantoprazole Sodium (Protonix) 40 mg DAILYAC PO ; Start 10/31/16 at 07:30 Active Scripts Active Reported Tamsulosin Hcl 0.4 Mg Cap.er.24h 0.4 Mg PO QHS Onglyza (Saxagliptin Hcl) 5 Mg Tablet 1 Tab PO DAILY Crestor (Rosuvastatin Calcium) 10 Mg Tablet 0.5 Tab PO DAILY Potassium Chloride 20 Meq Tablet.er 10 Meq PO DAILY Omeprazole 20 Mg Tablet.dr 1 Tab PO BID Nitrostat (Nitroglycerin) 0.3 Mg Tab.subl 0.3 Mg SL PRN Q5MIN PRN Methocarbamol 500 Mg Tablet 500 Mg PO PRN TID PRN [place] Ultra Strength (Menthol) 1 Each Adh..patch 1 Each TP TID Lisinopril 40 Mg Tablet 1 Tab PO DAILY Levothyroxine Sodium 125 Mcg Tablet 1 Tab PO DAILY Novolog Flexpen (Insulin Aspart) 100 Unit/1 Ml Insuln.pen 11 Unit SQ TIDWMEALS Gabapentin 300 Mg Capsule 300 Mg PO TID Furosemide 40 Mg Tablet 40 Mg PO BID Ferrous Sulfate 324 Mg Tablet.dr 324 Mg PO BID Cardizem Cd (Diltiazem Hcl) 300 Mg Cap.er.24h 300 Mg PO DAILY Vitamin D3 (Cholecalciferol (Vitamin D3)) 1,000 Unit Tablet 1 Tab PO DAILY Refresh Optive Advanced Drops (Carboxymethyl/Glycerin/Poly80) 10 Ml Drops 1 Drop OP PRN QID PRN Alphagan P (Brimonidine Tartrate) 5 Ml Drops 1 Drop EACHEYE BID Aspirin 325 Mg Tablet 1 Tab PO DAILY Albuterol Sulfate Conc Neb Soln (Albuterol Sulfate) 2.5 Mg/0.5 Ml Vial.neb 1 Vial NEB Q4HRS Combivent Respimat Inhal (Ipratropium/Albuterol Sulfate) 4 Gm Aer.w.adap 1 Inh IH QID Vitals/I & O Vital Sign - Last 24 Hours 10/29/16 10/29/16 10/29/16 10/29/16 18:00 19:26 19:38 20:02 Temp 97.7 97.7 Pulse 70 75 Resp 24 B/P 95/45 101/50 Pulse Ox 99 98 100 O2 Delivery Nasal Cannula Nasal Cannula Nasal Cannula Nasal Cannula O2 Flow Rate 3.5 3.5 3.5 3.0 10/29/16 10/29/16 10/29/16 10/29/16 20:58 21:45 22:02 23:14 Temp 98.3 98.3 Pulse 75 71 71 Resp B/P 112/51 96/54 103/58 Pulse Ox 100 100 97 96 O2 Delivery Nasal Cannula BiPAP/CPAP BiPAP/CPAP BiPAP/CPAP O2 Flow Rate 3.5 10/29/16 10/29/16 10/30/16 10/30/16 23:23 23:35 00:06 01:04 Pulse 71 72 Resp 27 B/P 103/55 118/58 Pulse Ox 96 100 98 O2 Delivery Bi-pap BiPAP/CPAP BiPAP/CPAP BiPAP/CPAP 10/30/16 10/30/16 10/30/16 10/30/16 01:38 01:44 02:09 02:37 Pulse 76 Resp 21 B/P 93/53 Pulse Ox 92 96 96 96 O2 Delivery Nasal Cannula BiPAP/CPAP BiPAP/CPAP BiPAP/CPAP O2 Flow Rate 3.0 10/30/16 10/30/16 10/30/16 10/30/16 03:00 04:15 04:17 05:42 Temp 98.5 98.5 Pulse 76 76 71 Resp 24 B/P 112/48 133/60 128/62 Pulse Ox 94 97 96 O2 Delivery BiPAP/CPAP BiPAP/CPAP Bi-pap Nasal Cannula O2 Flow Rate 4.0 10/30/16 10/30/16 10/30/16 10/30/16 06:02 06:57 07:41 08:00 Temp 98.4 98.4 Pulse 71 76 76 Resp 26 19 B/P 134/56 134/55 126/54 Pulse Ox 92 97 92 O2 Delivery Nasal Cannula BiPAP/CPAP Nasal Cannula Nasal Cannula O2 Flow Rate 4.0 3.5 4.0 10/30/16 10/30/16 10/30/16 10/30/16 08:23 08:31 08:32 09:00 Pulse 76 76 76 B/P 126/54 124/54 119/43 Pulse Ox 93 86 O2 Delivery Nasal Cannula Nasal Cannula O2 Flow Rate 3.0 4.0 10/30/16 10/30/16 10/30/16 10/30/16 10:00 11:00 11:54 12:02 Temp 98.0 98.0 Pulse 70 75 71 Resp 21 B/P 113/49 80/49 84/43 Pulse Ox 96 93 95 O2 Delivery BiPAP/CPAP BiPAP/CPAP Bi-pap BiPAP/CPAP 10/30/16 10/30/16 12:28 16:27 Pulse Ox 96 91 O2 Delivery BiPAP/CPAP Nasal Cannula O2 Flow Rate 5.0 Intake and Output 10/29/16 10/29/16 10/30/16 15:00 23:00 07:00 Intake Total 400 ml 575 ml 1635 ml Output Total 1425 ml 530 ml 1155 ml Balance -1025 ml 45 ml 480 ml WENDIE ANGEL MD October 30, 2016 17:11
[2016-10-30 19:16] LABS: UR PROTEIN RD 28.8 mg/dL (Not Estab.)
[2016-10-30] MEDS: ATORVASTATIN CALCIUM 20 MG TABLET PO SCH (20:23)
[2016-10-30] MEDS: TAMSULOSIN 0.4 MG CAP.ER.24H. PO SCH (20:23)
[2016-10-31] VITALS (22 sets, daily range): BP systolic 78–123; BP diastolic 38–75
[2016-10-31 05:12] LABS: BASO % 0 % (0-3); EOS % 0 % (0-3); HEMATOCRIT 27.7 % (39.0-53.0); HEMOGLOBIN 9.1 g/dL (13.0-17.5); LYMPH # 1.6 x10^3/uL (1.0-4.8); LYMPH % 16 % (24-48); MEAN CORPUSCULAR HEMOGLOBIN 26 pg (25-35); MEAN CORPUSCULAR HGB CONC 33 g/dL (31-37); MEAN CORPUSCULAR VOLUME 78 fL (79-100); MONO % 7 % (0-9); NEUT % 77 % (31-73); PLATELET COUNT 156 x10^3/uL (140-400); RED BLOOD COUNT 3.54 x10^6/uL (4.30-5.70); RED CELL DISTRIBUTION WIDTH 18.8 % (11.5-14.5); WHITE BLOOD COUNT 9.7 x10^3/uL (4.0-11.0)
[2016-10-31] MEDS: LEVOTHYROXINE 125 MCG TABLET PO SCH (05:27)
[2016-10-31 05:39] LABS: ALBUMIN 2.6 g/dL (3.4-5.0); CALCIUM 7.7 mg/dL (8.5-10.1); CREATININE 1.5 mg/dL (0.7-1.3); PHOSPHORUS 3.3 mg/dL (2.6-4.7); POTASSIUM 4.2 mmol/L (3.5-5.1)
[2016-10-31] MEDS: IPRATRPIUM/ALBUTEROL 0.5/2.5MG 3 ML NEBU. NEB SCH ×4 (08:01→19:44)
[2016-10-31] MEDS: INSULIN ASPART 300 UNITS/3 ML INSULN.PEN SQ SCH ×3 (08:28→17:57)
[2016-10-31] MEDS: FERROUS SULFATE 325 MG TABLET. PO SCH ×2 (08:31→18:01)
[2016-10-31] MEDS: PANTOPRAZOLE 40 MG TABLET.DR. PO SCH (08:31)
[2016-10-31] MEDS: POTASSIUM CHLORIDE 10 MEQ TABLET.ER. PO SCH (08:31)
[2016-10-31] MEDS: CHOLECALCIFEROL (VITAMIN D3) 1,000 UNIT TABLET PO SCH (08:37)
[2016-10-31] MEDS: ASPIRIN 325 MG TABLET PO SCH (08:38)
[2016-10-31] MEDS: BRIMONIDINE 0.2% OPHTH SOLUTION 5ML BOTTLE. OU SCH ×2 (08:38→20:40)
[2016-10-31] MEDS: LINAGLIPTIN 5 MG TABLET PO SCH (08:38)
[2016-10-31] MEDS: GABAPENTIN 300 MG CAPSULE. PO SCH ×2 (08:40→20:40)
[2016-10-31] MEDS: LISINOPRIL 40 MG TABLET. PO SCH ×2 (09:00→18:02)
--- NOTE | 2016-10-31 09:02 | PDOC ---
SUBJECTIVE ROS BELINDA/ CKD III Doing and feeling better today but no apetite yet, denies excessive water intake CVS: no Orthopnea, no CP RESP: no SOB, no RAPHAEL GI: no Nausea, no Vomiting : no Dysuria, no Urgency OBJECTIVE Vital Signs Vital Signs Date Time Temp Pulse Resp B/P Pulse Ox O2 Delivery O2 Flow Rate FiO2 10/31/16 08:04 93 Nasal Cannula 5.0 10/31/16 07:16 98.7 71 16 100/53 98.7 I & 0 Intake and Output 10/31/16 07:00 Intake Total 1590 ml Output Total 2875 ml Balance -1285 ml Intake Oral 1547 ml IV Total 43 ml Output Urine Total 2875 ml PHYSICAL EXAM Physical Exam General Appearance: Awake Alert Oriented x 3 In no resp Distress currently (he had a good phone conversation) Eyes: VIsion Unchanged Conjunctiva Normal EN: No EN Drainage Mucous Memb. moist Neck: no JVD min JVP Supple no Thyromegaly CVS: S1 S2 no audible Murmur No Gallop No Rub no Edema Resp: no Rales no wheezing no Acc. Muscle use GI: BS +ve NO Bruit Non Tender Non Distended : no CVA tenderness; no Suprapubic Tenderness SKIN: no Rashes Breast Exam deferred Mu.Sk: Adequate ROM no Muscle Atrophy Heme: Unable to palpate Obvious LAD no palp Splenomegaly NEURO: Good Strength and Tone Cranial Nerves II - XII grossly intact Psych: not Depressed no Active hallucination Assessment & Plan ARF/ ATN ? : much improved today Known CKD III with Creat ~ 1.9ish at [facility] and now probably close to his basline. Anticipate Creat will ^ once off Ionotropes CmyoPahty with ^ed BNP (no CHF on CXR per report) - now on Dobutamine and much improved LV Function; EF off of Dobutamin is 30% per recheck ECHO (Allen Reyes) ? CAD - plans for [facility] in the next 48 hrs - vivienne no lasix use Low Na - start 3% ; U Osm noted. partially due to poor PO intake SOB - much improved today Anemia: GI eval noted. 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 Discussed Plan of Care and prognosis etc. at length with pt COMMENT/RELEVANT DATA Meds Current Medications Medications (Trade) Dose Ordered Sig/Jcarlos Start Time Stop Time Status Last Admin Dose Admin Acetaminophen (Tylenol) 650 mg PRN Q6HRS PRN 10/29/16 11:15 10/30/16 16:52 650 MG Albuterol Sulfate (Ventolin Neb Soln) 2.5 mg PRN Q4HRS PRN 10/27/16 11:30 10/30/16 01:38 2.5 MG Albuterol/ Ipratropium (Duoneb) 3 ml RTQID 10/27/16 12:00 10/31/16 08:01 3 ML Artificial Tears (Artificial Tears) 1 drop PRN Q15MIN PRN 10/27/16 11:30 Aspirin (Krystian Aspirin) 325 mg DAILY 10/27/16 12:00 10/31/16 08:38 325 MG Atorvastatin Calcium (Lipitor) 20 mg QHS 10/27/16 21:00 10/30/16 20:23 20 MG Brimonidine Tartrate (Alphagan) 1 drop BID 10/27/16 12:00 10/31/16 08:38 1 DROP Diltiazem HCl (Cardizem Cd) 300 mg DAILY 10/27/16 12:00 10/30/16 08:23 300 MG Dobutamine HCl/ Dextrose 250 ml @ 0 mls/hr CONT PRN 10/30/16 11:00 Ferrous Sulfate (Feosol) 325 mg BIDWMEALS 10/27/16 12:00 10/31/16 08:31 325 MG Furosemide (Lasix) 60 mg 1X ONCE 10/28/16 08:00 10/28/16 08:01 DC Gabapentin (Neurontin) 300 mg BID 10/27/16 12:00 10/31/16 08:40 300 MG Heparin Sodium (Porcine) (Heparin Sodium) 2,500 unit 1X ONCE 10/27/16 10:15 10/27/16 10:16 DC 10/27/16 12:16 2,800 UNIT Heparin Sodium/ Sodium Chloride 60 unit 1X ONCE 10/27/16 10:15 10/27/16 10:16 DC 10/27/16 12:14 60 UNIT Insulin Aspart (Novolog) 11 units TIDWMEALS 10/27/16 12:00 10/31/16 08:28 11 UNITS Levothyroxine Sodium (Synthroid) 125 mcg DAILY07 10/27/16 12:00 10/31/16 05:27 125 MCG Lidocaine/Sodium Bicarbonate (Buffered Lidocaine 1%) 3 ml 1X ONCE 10/27/16 10:15 10/27/16 10:16 DC 10/27/16 12:16 3 ML Linagliptin (Tradjenta) 5 mg DAILY 10/27/16 12:00 10/31/16 08:38 5 MG Lisinopril (Prinivil) 40 mg DAILY 10/27/16 12:00 10/27/16 13:22 40 MG Magnesium Sulfate/ Dextrose 50 ml @ 25 mls/hr PRN DAILY PRN 10/30/16 09:45 Methocarbamol (Robaxin) 500 mg PRN TID PRN 10/27/16 11:15 10/30/16 01:25 500 MG Multi-Ingredient Ointment 1 summer 1 summer PRN QID PRN 10/29/16 11:15 10/30/16 16:52 1 SUMMER Non-Formulary Medication 1 tab BID 10/27/16 21:00 UNV Nystatin (Nystop) 1 summer TID PRN PRN 10/29/16 11:15 Pantoprazole Sodium (Protonix Vial) 40 mg DAILYAC 10/26/16 17:00 10/30/16 11:57 DC 10/30/16 08:32 40 MG Pantoprazole Sodium (Protonix) 40 mg DAILYAC 10/31/16 07:30 10/31/16 08:31 40 MG Potassium Chloride (Klor-Con) 10 meq [id number] 10/28/16 08:00 10/31/16 08:31 10 MEQ Sodium Bicarbonate 150 meq/Sterile Water 1,150 ml @ 80 mls/hr [id number] PRN 10/29/16 07:45 10/30/16 12:28 DC 10/29/16 16:41 80 MLS/HR Sodium Bicarbonate 50 meq 50 meq Q2HR 10/29/16 08:00 10/29/16 10:01 DC 10/29/16 10:14 50 MEQ Sodium Bicarbonate 50 meq Q2HR 10/27/16 10:00 10/27/16 12:01 DC 10/27/16 12:38 50 MEQ Sodium Chloride (Hypertonic Saline) 500 ml @ 30 mls/hr CONT PRN PRN 10/29/16 07:45 10/30/16 12:28 DC Tamsulosin HCl (Flomax) 0.4 mg QHS 10/27/16 21:00 10/30/16 20:23 0.4 MG Vitamin D (Vitamin D3) 1,000 unit DAILY 10/27/16 12:00 10/31/16 08:37 1,000 UNIT Lab Laboratory Tests Test 10/30/16 12:35 10/30/16 12:40 10/30/16 14:00 10/30/16 14:10 Urine Collection Type U cath Urine Color Yellow Urine Clarity Cloudy Urine pH 5.5 Urine Specific [place] 1.015 Urine Protein Negativemg/dL (NEG-TRACE) 28.8mg/dL (Not Estab.) Urine Glucose (UA) Negativemg/dL (NEG) Urine Ketones (Stick) Negativemg/dL (NEG) Urine Blood Large (NEG) Urine Nitrite Negative (NEG) Urine Bilirubin Negative (NEG) Urine Urobilinogen Dipstick 1.0mg/dL (0.2 mg/dL) Urine Leukocyte Esterase Negative (NEG) Urine RBC 20-40/HPF (0-2) Urine WBC 1-4/HPF (0-4) Urine Squamous Epithelial Cells Few/LPF Urine Amorphous Sediment Present/HPF Urine Bacteria 0/HPF (0-FEW) Urine Hyaline Casts Few/HPF Urine Granular Casts Few/HPF Urine Mucus Slight/LPF Urine Creatinine 87.6mg/dL (Not Estab.) Urine Protein/Creatinine Ratio 329mg/g creat (0-200) Glucose (Fingerstick) 148mg/dL (70-99) 153mg/dL (70-99) Test 10/30/16 16:57 10/30/16 20:21 10/31/16 04:40 10/31/16 04:45 Glucose (Fingerstick) 149mg/dL (70-99) 173mg/dL (70-99) Lactic Acid Level 1.3mmol/L (0.4-2.0) Magnesium Level 2.1mg/dL (1.8-2.4) White Blood Count 9.7x10^3/uL (4.0-11.0) Red Blood Count 3.54x10^6/uL (4.30-5.70) Hemoglobin 9.1g/dL (13.0-17.5) Hematocrit 27.7% (39.0-53.0) Mean Corpuscular Volume 78fL (79-100) Mean Corpuscular Hemoglobin 26pg (25-35) Mean Corpuscular Hemoglobin Concent 33g/dL (31-37) Red Cell Distribution Width 18.8% (11.5-14.5) Platelet Count 156x10^3/uL (140-400) Neutrophils (%) (Auto) 77% (31-73) Lymphocytes (%) (Auto) 16% (24-48) Monocytes (%) (Auto) 7% (0-9) Eosinophils (%) (Auto) 0% (0-3) Basophils (%) (Auto) 0% (0-3) Neutrophils # (Auto) 7.4x10^3uL (1.8-7.7) Lymphocytes # (Auto) 1.6x10^3/uL (1.0-4.8) Monocytes # (Auto) 0.6x10^3/uL (0.0-1.1) Eosinophils # (Auto) 0.0x10^3/uL (0.0-0.7) Basophils # (Auto) 0.0x10^3/uL (0.0-0.2) Sodium Level 124mmol/L (136-145) Potassium Level 4.2mmol/L (3.5-5.1) Chloride Level 90mmol/L (98-107) Carbon Dioxide Level 27mmol/L (21-32) Anion Gap 7 (6-14) Blood Urea Nitrogen 53mg/dL (8-26) Creatinine 1.5mg/dL (0.7-1.3) Estimated GFR (Cockcroft-Gault) 46.0 Glucose Level 135mg/dL (70-99) Calcium Level 7.7mg/dL (8.5-10.1) Phosphorus Level 3.3mg/dL (2.6-4.7) Albumin 2.6g/dL (3.4-5.0) Test 10/31/16 08:25 Glucose (Fingerstick) 143mg/dL (70-99) AILIN MCBRIDE MD October 31, 2016 09:02
[2016-10-31] MEDS: SODIUM CHLORIDE 3 % 500 ML IV PRN (09:22)
--- NOTE | 2016-10-31 10:49 | PDOC ---
G I PROGRESS NOTE Subjective No GI complaints. Says eating and stooling OK. Discouraged re: other issues. Objective Reviewed records from [facility]; no GI stuff in there. Physical Exam Lungs with coarse sounds bilaterally. RRR Abdomen soft, not distended nor tender. Review of Relevant I have reviewed the following items dorian (where applicable) has been applied. Labs Laboratory Tests Test 10/29/16 11:36 10/29/16 12:29 10/29/16 15:35 10/29/16 17:36 Sodium Level 125mmol/L (136-145) 124mmol/L (136-145) Glucose (Fingerstick) 144mg/dL (70-99) 155mg/dL (70-99) Test 10/29/16 20:20 10/30/16 00:00 10/30/16 04:45 10/30/16 07:21 Sodium Level 124mmol/L (136-145) 125mmol/L (136-145) 125mmol/L (136-145) White Blood Count 7.0x10^3/uL (4.0-11.0) Red Blood Count 3.52x10^6/uL (4.30-5.70) Hemoglobin 9.1g/dL (13.0-17.5) Hematocrit 27.7% (39.0-53.0) Mean Corpuscular Volume 79fL (79-100) Mean Corpuscular Hemoglobin 26pg (25-35) Mean Corpuscular Hemoglobin Concent 33g/dL (31-37) Red Cell Distribution Width 18.7% (11.5-14.5) Platelet Count 130x10^3/uL (140-400) Neutrophils (%) (Auto) 72% (31-73) Lymphocytes (%) (Auto) 19% (24-48) Monocytes (%) (Auto) 8% (0-9) Eosinophils (%) (Auto) 0% (0-3) Basophils (%) (Auto) 1% (0-3) Neutrophils # (Auto) 5.1x10^3uL (1.8-7.7) Lymphocytes # (Auto) 1.3x10^3/uL (1.0-4.8) Monocytes # (Auto) 0.5x10^3/uL (0.0-1.1) Eosinophils # (Auto) 0.0x10^3/uL (0.0-0.7) Basophils # (Auto) 0.1x10^3/uL (0.0-0.2) Reticulocyte Count (auto) 1.1% (0.5-2.5) Potassium Level 4.1mmol/L (3.5-5.1) Chloride Level 90mmol/L (98-107) Carbon Dioxide Level 24mmol/L (21-32) Anion Gap 11 (6-14) Blood Urea Nitrogen 75mg/dL (8-26) Creatinine 2.1mg/dL (0.7-1.3) Estimated GFR (Cockcroft-Gault) 31.2 Glucose Level 166mg/dL (70-99) Lactic Acid Level 1.2mmol/L (0.4-2.0) Calcium Level 7.6mg/dL (8.5-10.1) Phosphorus Level 4.0mg/dL (2.6-4.7) Iron Level 11ug/dL (65-175) Total Iron Binding Capacity 279ug/dL (250-450) Iron Saturation 4% (15-34) Ferritin 660ng/mL (26-388) Albumin 2.6g/dL (3.4-5.0) Cortisol AM Sample 23.2ug/dL (6.2-19.4) Glucose (Fingerstick) 161mg/dL (70-99) Test 10/30/16 12:35 10/30/16 12:40 10/30/16 14:00 10/30/16 14:10 Urine Collection Type U cath Urine Color Yellow Urine Clarity Cloudy Urine pH 5.5 Urine Specific [place] 1.015 Urine Protein Negativemg/dL (NEG-TRACE) 28.8mg/dL (Not Estab.) Urine Glucose (UA) Negativemg/dL (NEG) Urine Ketones (Stick) Negativemg/dL (NEG) Urine Blood Large (NEG) Urine Nitrite Negative (NEG) Urine Bilirubin Negative (NEG) Urine Urobilinogen Dipstick 1.0mg/dL (0.2 mg/dL) Urine Leukocyte Esterase Negative (NEG) Urine RBC 20-40/HPF (0-2) Urine WBC 1-4/HPF (0-4) Urine Squamous Epithelial Cells Few/LPF Urine Amorphous Sediment Present/HPF Urine Bacteria 0/HPF (0-FEW) Urine Hyaline Casts Few/HPF Urine Granular Casts Few/HPF Urine Mucus Slight/LPF Urine Creatinine 87.6mg/dL (Not Estab.) Urine Protein/Creatinine Ratio 329mg/g creat (0-200) Glucose (Fingerstick) 148mg/dL (70-99) 153mg/dL (70-99) Test 10/30/16 16:57 10/30/16 20:21 10/31/16 04:40 10/31/16 04:45 Glucose (Fingerstick) 149mg/dL (70-99) 173mg/dL (70-99) Lactic Acid Level 1.3mmol/L (0.4-2.0) Magnesium Level 2.1mg/dL (1.8-2.4) White Blood Count 9.7x10^3/uL (4.0-11.0) Red Blood Count 3.54x10^6/uL (4.30-5.70) Hemoglobin 9.1g/dL (13.0-17.5) Hematocrit 27.7% (39.0-53.0) Mean Corpuscular Volume 78fL (79-100) Mean Corpuscular Hemoglobin 26pg (25-35) Mean Corpuscular Hemoglobin Concent 33g/dL (31-37) Red Cell Distribution Width 18.8% (11.5-14.5) Platelet Count 156x10^3/uL (140-400) Neutrophils (%) (Auto) 77% (31-73) Lymphocytes (%) (Auto) 16% (24-48) Monocytes (%) (Auto) 7% (0-9) Eosinophils (%) (Auto) 0% (0-3) Basophils (%) (Auto) 0% (0-3) Neutrophils # (Auto) 7.4x10^3uL (1.8-7.7) Lymphocytes # (Auto) 1.6x10^3/uL (1.0-4.8) Monocytes # (Auto) 0.6x10^3/uL (0.0-1.1) Eosinophils # (Auto) 0.0x10^3/uL (0.0-0.7) Basophils # (Auto) 0.0x10^3/uL (0.0-0.2) Sodium Level 124mmol/L (136-145) Potassium Level 4.2mmol/L (3.5-5.1) Chloride Level 90mmol/L (98-107) Carbon Dioxide Level 27mmol/L (21-32) Anion Gap 7 (6-14) Blood Urea Nitrogen 53mg/dL (8-26) Creatinine 1.5mg/dL (0.7-1.3) Estimated GFR (Cockcroft-Gault) 46.0 Glucose Level 135mg/dL (70-99) Uric Acid 9.0mg/dL (3.5-7.2) Calcium Level 7.7mg/dL (8.5-10.1) Phosphorus Level 3.3mg/dL (2.6-4.7) Albumin 2.6g/dL (3.4-5.0) Test 10/31/16 08:25 Glucose (Fingerstick) 143mg/dL (70-99) Laboratory Tests Test 10/30/16 12:35 10/30/16 12:40 10/30/16 14:00 10/30/16 14:10 Urine Collection Type U cath Urine Color Yellow Urine Clarity Cloudy Urine pH 5.5 Urine Specific [place] 1.015 Urine Protein Negativemg/dL (NEG-TRACE) 28.8mg/dL (Not Estab.) Urine Glucose (UA) Negativemg/dL (NEG) Urine Ketones (Stick) Negativemg/dL (NEG) Urine Blood Large (NEG) Urine Nitrite Negative (NEG) Urine Bilirubin Negative (NEG) Urine Urobilinogen Dipstick 1.0mg/dL (0.2 mg/dL) Urine Leukocyte Esterase Negative (NEG) Urine RBC 20-40/HPF (0-2) Urine WBC 1-4/HPF (0-4) Urine Squamous Epithelial Cells Few/LPF Urine Amorphous Sediment Present/HPF Urine Bacteria 0/HPF (0-FEW) Urine Hyaline Casts Few/HPF Urine Granular Casts Few/HPF Urine Mucus Slight/LPF Urine Creatinine 87.6mg/dL (Not Estab.) Urine Protein/Creatinine Ratio 329mg/g creat (0-200) Glucose (Fingerstick) 148mg/dL (70-99) 153mg/dL (70-99) Test 10/30/16 16:57 10/30/16 20:21 10/31/16 04:40 10/31/16 04:45 Glucose (Fingerstick) 149mg/dL (70-99) 173mg/dL (70-99) Lactic Acid Level 1.3mmol/L (0.4-2.0) Magnesium Level 2.1mg/dL (1.8-2.4) White Blood Count 9.7x10^3/uL (4.0-11.0) Red Blood Count 3.54x10^6/uL (4.30-5.70) Hemoglobin 9.1g/dL (13.0-17.5) Hematocrit 27.7% (39.0-53.0) Mean Corpuscular Volume 78fL (79-100) Mean Corpuscular Hemoglobin 26pg (25-35) Mean Corpuscular Hemoglobin Concent 33g/dL (31-37) Red Cell Distribution Width 18.8% (11.5-14.5) Platelet Count 156x10^3/uL (140-400) Neutrophils (%) (Auto) 77% (31-73) Lymphocytes (%) (Auto) 16% (24-48) Monocytes (%) (Auto) 7% (0-9) Eosinophils (%) (Auto) 0% (0-3) Basophils (%) (Auto) 0% (0-3) Neutrophils # (Auto) 7.4x10^3uL (1.8-7.7) Lymphocytes # (Auto) 1.6x10^3/uL (1.0-4.8) Monocytes # (Auto) 0.6x10^3/uL (0.0-1.1) Eosinophils # (Auto) 0.0x10^3/uL (0.0-0.7) Basophils # (Auto) 0.0x10^3/uL (0.0-0.2) Sodium Level 124mmol/L (136-145) Potassium Level 4.2mmol/L (3.5-5.1) Chloride Level 90mmol/L (98-107) Carbon Dioxide Level 27mmol/L (21-32) Anion Gap 7 (6-14) Blood Urea Nitrogen 53mg/dL (8-26) Creatinine 1.5mg/dL (0.7-1.3) Estimated GFR (Cockcroft-Gault) 46.0 Glucose Level 135mg/dL (70-99) Uric Acid 9.0mg/dL (3.5-7.2) Calcium Level 7.7mg/dL (8.5-10.1) Phosphorus Level 3.3mg/dL (2.6-4.7) Albumin 2.6g/dL (3.4-5.0) Test 10/31/16 08:25 Glucose (Fingerstick) 143mg/dL (70-99) Microbiology 10/27/16 Urine Culture - Final, Complete 10/27/16 Urine Culture Result 1 (JANEL) - Final, Complete Hemoglobin stable. Iron deficient as expected. Medications Current Medications Pantoprazole Sodium 40 mg 40 mg DAILYAC IVP Last administered on 10/30/16 08:32 ; Start 10/26/16 at 17:00; Stop 10/30/16 at 11:57; Status DC Dobutamine HCl/ Dextrose 250 ml @ 0 mls/hr CONT PRN IV SEE I/O RECORD Last administered on 10/29/16 03:02; Start 10/26/16 at 17:00; Stop 10/30/16 at 10:57 ; Status DC Furosemide (Lasix) 60 mg 1X ONCE IVP Last administered on 10/27/16 08:15; Start 10/27/16 at 08:30; Stop 10/27/16 at 08:31; Status DC Sodium Bicarbonate 50 meq Q2HR IV Last administered on 10/27/16 12:38; Start 10/27/16 at 10:00; Stop 10/27/16 at 12:01; Status DC Albuterol/ Ipratropium (Duoneb) 3 ml RTQID NEB Last administered on 10/31/16 08 :01; Start 10/27/16 at 12:00 Heparin Sodium (Porcine) (Heparin Sodium) 10,000 unit STK-MED ONCE .ROUTE ; Start 10/27/16 at 10:01; Stop 10/27/16 at 10:02; Status DC Lidocaine/Sodium Bicarbonate 20 ml 20 ml STK-MED ONCE IJ ; Start 10/27/16 at 10: 01; Stop 10/27/16 at 10:02; Status DC Heparin Sodium/ Sodium Chloride 500 ml @ As Directed STK-MED ONCE .ROUTE ; Start 10/27/16 at 10:01; Stop 10/27/16 at 10:02; Status DC Lidocaine/Sodium Bicarbonate (Buffered Lidocaine 1%) 3 ml 1X ONCE IJ Last administered on 10/27/16 12:16; Start 10/27/16 at 10:15; Stop 10/27/16 at 10:16 ; Status DC Heparin Sodium/ Sodium Chloride 60 unit 1X ONCE IV Last administered on 12:14; Start 10/27/16 at 10:15; Stop 10/27/16 at 10:16; Status DC Heparin Sodium (Porcine) (Heparin Sodium) 2,500 unit 1X ONCE INT CAT Last administered on 10/27/16 12:16; Start 10/27/16 at 10:15; Stop 10/27/16 at 10:16 ; Status DC Aspirin (Krystian Aspirin) 325 mg DAILY PO Last administered on 10/31/16 08:38; Start 10/27/16 at 12:00 Vitamin D (Vitamin D3) 1,000 unit DAILY PO Last administered on 10/31/16 08:37 ; Start 10/27/16 at 12:00 Diltiazem HCl (Cardizem Cd) 300 mg DAILY PO Last administered on 10/30/16 08:23 ; Start 10/27/16 at 12:00 Furosemide (Lasix) 40 mg [id number] PO Last administered on 10/28/16 17:13; Start 10/27/16 at 12:00; Stop 10/29/16 at 07:12; Status DC Insulin Aspart (Novolog) 11 units TIDWMEALS SQ Last administered on 10/31/16 08 :28; Start 10/27/16 at 12:00 Levothyroxine Sodium (Synthroid) 125 mcg DAILY07 PO Last administered on 05:27; Start 10/27/16 at 12:00 Lisinopril (Prinivil) 40 mg DAILY PO Last administered on 10/27/16 13:22; Start 10/27/16 at 12:00 Methocarbamol (Robaxin) 500 mg PRN TID PRN PO MUSCLE SPASMS Last administered on 10/30/16 01:25; Start 10/27/16 at 11:15 Tamsulosin HCl (Flomax) 0.4 mg QHS PO Last administered on 10/30/16 20:23; Start 10/27/16 at 21:00 Albuterol Sulfate (Ventolin Neb Soln) 2.5 mg PRN Q4HRS PRN NEB SHORTNESS OF BREATH Last administered on 10/30/16 01:38; Start 10/27/16 at 11:30 Brimonidine Tartrate (Alphagan) 1 drop BID OU Last administered on 10/31/16 08: 38; Start 10/27/16 at 12:00 Artificial Tears (Artificial Tears) 1 drop PRN Q15MIN PRN OU DRY EYE; Start at 11:30 Ferrous Sulfate (Feosol) 325 mg BIDWMEALS PO Last administered on 10/31/16 08: 31; Start 10/27/16 at 12:00 Gabapentin (Neurontin) 300 mg BID PO Last administered on 10/31/16 08:40; Start 10/27/16 at 12:00 Non-Formulary Medication 1 inh QID IH ; Start 10/27/16 at 13:00; Status UNV Non-Formulary Medication 1 each TID TP ; Start 10/27/16 at 14:00; Status UNV Non-Formulary Medication 1 tab BID PO ; Start 10/27/16 at 21:00; Status UNV Potassium Chloride (Klor-Con) 10 meq [id number] PO Last administered on 08:31; Start 10/28/16 at 08:00 Atorvastatin Calcium (Lipitor) 20 mg QHS PO Last administered on 10/30/16 20:23 ; Start 10/27/16 at 21:00 Linagliptin (Tradjenta) 5 mg DAILY PO Last administered on 10/31/16 08:38; Start 10/27/16 at 12:00 Furosemide (Lasix) 60 mg 1X ONCE IVP ; Start 10/28/16 at 08:00; Stop 10/28/16 at 08:01; Status DC Sodium Bicarbonate 50 meq 50 meq Q2HR IV Last administered on 10/29/16 10:14; Start 10/29/16 at 08:00; Stop 10/29/16 at 10:01; Status DC Sodium Bicarbonate 150 meq/Sterile Water 1,150 ml @ 80 mls/hr [id number] PRN IV . Last administered on 10/29/16 16:41; Start 10/29/16 at 07:45; Stop 10/30/16 at 12:28; Status DC Sodium Chloride (Hypertonic Saline) 500 ml @ 30 mls/hr CONT PRN PRN IV see comments; Start 10/29/16 at 07:45; Stop 10/30/16 at 12:28; Status DC Acetaminophen (Tylenol) 650 mg PRN Q6HRS PRN PO PAIN Last administered on 16:52; Start 10/29/16 at 11:15 Nystatin (Nystop) 1 summer TID PRN PRN TP REDNESS; Start 10/29/16 at 11:15 Multi-Ingredient Ointment 1 summer 1 summer PRN QID PRN TP MUSCLE PAIN Last administered on 10/30/16 16:52; Start 10/29/16 at 11:15 Magnesium Sulfate/ Dextrose 50 ml @ 25 mls/hr PRN DAILY PRN IV for Mag < 1.7 on am labs; Start 10/30/16 at 09:45 Dobutamine HCl/ Dextrose 250 ml @ 0 mls/hr CONT PRN IV SEE I/O RECORD; Start at 11:00 Pantoprazole Sodium 40 mg 40 mg DAILYAC PO Last administered on 10/31/16 08:31 ; Start 10/31/16 at 07:30 Iron Sucrose 200 mg/Sodium Chloride 110 ml @ 55 mls/hr 3X/WEEK IV ; Start at 09:00; Stop 11/10/16 at 10:59 Sodium Chloride (Hypertonic Saline) 500 ml @ 30 mls/hr CONT PRN PRN IV see comments Last administered on 10/31/16 09:22; Start 10/31/16 at 09:00 Active Scripts Active Reported Tamsulosin Hcl 0.4 Mg Cap.er.24h 0.4 Mg PO QHS Onglyza (Saxagliptin Hcl) 5 Mg Tablet 1 Tab PO DAILY Crestor (Rosuvastatin Calcium) 10 Mg Tablet 0.5 Tab PO DAILY Potassium Chloride 20 Meq Tablet.er 10 Meq PO DAILY Omeprazole 20 Mg Tablet.dr 1 Tab PO BID Nitrostat (Nitroglycerin) 0.3 Mg Tab.subl 0.3 Mg SL PRN Q5MIN PRN Methocarbamol 500 Mg Tablet 500 Mg PO PRN TID PRN [place] Ultra Strength (Menthol) 1 Each Adh..patch 1 Each TP TID Lisinopril 40 Mg Tablet 1 Tab PO DAILY Levothyroxine Sodium 125 Mcg Tablet 1 Tab PO DAILY Novolog Flexpen (Insulin Aspart) 100 Unit/1 Ml Insuln.pen 11 Unit SQ TIDWMEALS Gabapentin 300 Mg Capsule 300 Mg PO TID Furosemide 40 Mg Tablet 40 Mg PO BID Ferrous Sulfate 324 Mg Tablet.dr 324 Mg PO BID Cardizem Cd (Diltiazem Hcl) 300 Mg Cap.er.24h 300 Mg PO DAILY Vitamin D3 (Cholecalciferol (Vitamin D3)) 1,000 Unit Tablet 1 Tab PO DAILY Refresh Optive Advanced Drops (Carboxymethyl/Glycerin/Poly80) 10 Ml Drops 1 Drop OP PRN QID PRN Alphagan P (Brimonidine Tartrate) 5 Ml Drops 1 Drop EACHEYE BID Aspirin 325 Mg Tablet 1 Tab PO DAILY Albuterol Sulfate Conc Neb Soln (Albuterol Sulfate) 2.5 Mg/0.5 Ml Vial.neb 1 Vial NEB Q4HRS Combivent Respimat Inhal (Ipratropium/Albuterol Sulfate) 4 Gm Aer.w.adap 1 Inh IH QID Vitals/I & O Vital Sign - Last 24 Hours 10/30/16 10/30/16 10/30/16 10/30/16 11:00 11:54 12:02 12:28 Temp 98.0 98.0 Pulse 75 71 Resp 21 B/P 80/49 84/43 Pulse Ox 93 95 96 O2 Delivery BiPAP/CPAP Bi-pap BiPAP/CPAP BiPAP/CPAP 10/30/16 10/30/16 10/30/16 10/30/16 14:00 16:00 16:00 16:27 Temp 98.0 98.0 98.0 98.0 Pulse 75 75 Resp 18 15 B/P 99/41 117/48 Pulse Ox 96 96 91 O2 Delivery Bi-pap Nasal Cannula O2 Flow Rate 4.0 4.0 5.0 10/30/16 10/30/16 10/30/16 10/30/16 18:00 19:00 19:47 19:49 Temp 98.0 98.2 98.0 98.2 Pulse 85 71 Resp 16 20 B/P 99/40 90/43 Pulse Ox 91 93 93 O2 Delivery Nasal Cannula Nasal Cannula Nasal Cannula O2 Flow Rate 5.0 5.0 4.0 5.0 10/30/16 10/30/16 10/30/16 10/30/16 20:03 21:11 22:13 22:57 Pulse 76 71 70 Resp 18 20 18 B/P 101/52 112/49 112/52 Pulse Ox 94 96 93 94 O2 Delivery BiPAP/CPAP BiPAP/CPAP BiPAP/CPAP BiPAP/CPAP 10/30/16 10/31/16 10/31/16 10/31/16 23:09 00:03 00:04 01:00 Temp 98.7 98.7 Pulse 71 71 Resp 18 20 B/P 114/79 114/56 Pulse Ox 96 93 93 O2 Delivery BiPAP/CPAP BiPAP/CPAP Bi-pap BiPAP/CPAP O2 Flow Rate 10/31/16 10/31/16 10/31/16 10/31/16 01:00 02:00 03:00 03:40 Temp 98.7 98.7 Pulse 76 71 76 Resp 20 18 B/P 123/59 119/56 107/55 Pulse Ox 94 91 90 92 O2 Delivery BiPAP/CPAP Nasal Cannula Nasal Cannula BiPAP/CPAP O2 Flow Rate 4.0 4.0 10/31/16 10/31/16 10/31/16 10/31/16 04:00 04:00 04:55 05:10 Pulse 92 71 Resp 18 18 B/P 112/57 106/55 Pulse Ox 94 94 95 O2 Delivery BiPAP/CPAP Bi-pap BiPAP/CPAP BiPAP/CPAP 10/31/16 10/31/16 10/31/16 10/31/16 06:00 07:16 08:00 08:00 Temp 98.7 98.7 98.7 98.7 Pulse 71 71 76 Resp 16 B/P 104/54 100/53 95/53 Pulse Ox 94 94 94 O2 Delivery BiPAP/CPAP Nasal Cannula Bi-pap O2 Flow Rate 4.0 5.0 10/31/16 10/31/16 10/31/16 08:04 09:07 10:15 Temp 97.9 97.9 97.9 97.9 Pulse 75 75 Resp 18 18 B/P 98/75 95/54 Pulse Ox 93 93 93 O2 Delivery Nasal Cannula O2 Flow Rate 5.0 5.0 5.0 Intake and Output 5/07/1810/30/16 10/31/16 15:00 23:00 07:00 Intake Total 447 ml 250 ml 893 ml Output Total 725 ml 1050 ml 1100 ml Balance -278 ml -800 ml -207 ml Problem List Problems Medical Problems: (1) CHF exacerbation Status: Acute Assessment Chronic NEHEMIAH; given historically negative w/u, 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 Plan of Care: Continue current Tx, Mgmt Plan of Care Note Chronic po iron. Transfuse prn. Since no SBCE here, no further meaningful w/u can be done re: the anemia. NIKKI GREENE MD October 31, 2016 10:49
--- NOTE | 2016-10-31 11:10 | PDOC ---
PULMONARY PROGRESS NOTES Subjective BACK ON DOBUTAMINE FEELS LESS SOA Vitals Vital Signs Date Time Temp Pulse Resp B/P Pulse Ox O2 Delivery O2 Flow Rate FiO2 10/31/16 10:15 97.9 75 18 95/54 93 5.0 97.9 10/31/16 08:04 Nasal Cannula ROS: No Nausea, No Chest Pain, No Abdominal Pain, No Increase Cough General: Alert, No acute distress Lungs: Other (fe rhonchi) Cardiovascular: S1, S2 Abdomen: Soft Neuro Exam: Alert Extremities: Other (1+edema) Skin: Warm Labs Laboratory Tests Test 10/29/16 11:36 10/29/16 12:29 10/29/16 15:35 10/29/16 17:36 Sodium Level 125mmol/L (136-145) 124mmol/L (136-145) Glucose (Fingerstick) 144mg/dL (70-99) 155mg/dL (70-99) Test 10/29/16 20:20 10/30/16 00:00 10/30/16 04:45 10/30/16 07:21 Sodium Level 124mmol/L (136-145) 125mmol/L (136-145) 125mmol/L (136-145) White Blood Count 7.0x10^3/uL (4.0-11.0) Red Blood Count 3.52x10^6/uL (4.30-5.70) Hemoglobin 9.1g/dL (13.0-17.5) Hematocrit 27.7% (39.0-53.0) Mean Corpuscular Volume 79fL (79-100) Mean Corpuscular Hemoglobin 26pg (25-35) Mean Corpuscular Hemoglobin Concent 33g/dL (31-37) Red Cell Distribution Width 18.7% (11.5-14.5) Platelet Count 130x10^3/uL (140-400) Neutrophils (%) (Auto) 72% (31-73) Lymphocytes (%) (Auto) 19% (24-48) Monocytes (%) (Auto) 8% (0-9) Eosinophils (%) (Auto) 0% (0-3) Basophils (%) (Auto) 1% (0-3) Neutrophils # (Auto) 5.1x10^3uL (1.8-7.7) Lymphocytes # (Auto) 1.3x10^3/uL (1.0-4.8) Monocytes # (Auto) 0.5x10^3/uL (0.0-1.1) Eosinophils # (Auto) 0.0x10^3/uL (0.0-0.7) Basophils # (Auto) 0.1x10^3/uL (0.0-0.2) Reticulocyte Count (auto) 1.1% (0.5-2.5) Potassium Level 4.1mmol/L (3.5-5.1) Chloride Level 90mmol/L (98-107) Carbon Dioxide Level 24mmol/L (21-32) Anion Gap 11 (6-14) Blood Urea Nitrogen 75mg/dL (8-26) Creatinine 2.1mg/dL (0.7-1.3) Estimated GFR (Cockcroft-Gault) 31.2 Glucose Level 166mg/dL (70-99) Lactic Acid Level 1.2mmol/L (0.4-2.0) Calcium Level 7.6mg/dL (8.5-10.1) Phosphorus Level 4.0mg/dL (2.6-4.7) Iron Level 11ug/dL (65-175) Total Iron Binding Capacity 279ug/dL (250-450) Iron Saturation 4% (15-34) Ferritin 660ng/mL (26-388) Albumin 2.6g/dL (3.4-5.0) Cortisol AM Sample 23.2ug/dL (6.2-19.4) Glucose (Fingerstick) 161mg/dL (70-99) Test 10/30/16 12:35 10/30/16 12:40 10/30/16 14:00 10/30/16 14:10 Urine Collection Type U cath Urine Color Yellow Urine Clarity Cloudy Urine pH 5.5 Urine Specific [place] 1.015 Urine Protein Negativemg/dL (NEG-TRACE) 28.8mg/dL (Not Estab.) Urine Glucose (UA) Negativemg/dL (NEG) Urine Ketones (Stick) Negativemg/dL (NEG) Urine Blood Large (NEG) Urine Nitrite Negative (NEG) Urine Bilirubin Negative (NEG) Urine Urobilinogen Dipstick 1.0mg/dL (0.2 mg/dL) Urine Leukocyte Esterase Negative (NEG) Urine RBC 20-40/HPF (0-2) Urine WBC 1-4/HPF (0-4) Urine Squamous Epithelial Cells Few/LPF Urine Amorphous Sediment Present/HPF Urine Bacteria 0/HPF (0-FEW) Urine Hyaline Casts Few/HPF Urine Granular Casts Few/HPF Urine Mucus Slight/LPF Urine Creatinine 87.6mg/dL (Not Estab.) Urine Protein/Creatinine Ratio 329mg/g creat (0-200) Glucose (Fingerstick) 148mg/dL (70-99) 153mg/dL (70-99) Test 10/30/16 16:57 10/30/16 20:21 10/31/16 04:40 10/31/16 04:45 Glucose (Fingerstick) 149mg/dL (70-99) 173mg/dL (70-99) Lactic Acid Level 1.3mmol/L (0.4-2.0) Magnesium Level 2.1mg/dL (1.8-2.4) White Blood Count 9.7x10^3/uL (4.0-11.0) Red Blood Count 3.54x10^6/uL (4.30-5.70) Hemoglobin 9.1g/dL (13.0-17.5) Hematocrit 27.7% (39.0-53.0) Mean Corpuscular Volume 78fL (79-100) Mean Corpuscular Hemoglobin 26pg (25-35) Mean Corpuscular Hemoglobin Concent 33g/dL (31-37) Red Cell Distribution Width 18.8% (11.5-14.5) Platelet Count 156x10^3/uL (140-400) Neutrophils (%) (Auto) 77% (31-73) Lymphocytes (%) (Auto) 16% (24-48) Monocytes (%) (Auto) 7% (0-9) Eosinophils (%) (Auto) 0% (0-3) Basophils (%) (Auto) 0% (0-3) Neutrophils # (Auto) 7.4x10^3uL (1.8-7.7) Lymphocytes # (Auto) 1.6x10^3/uL (1.0-4.8) Monocytes # (Auto) 0.6x10^3/uL (0.0-1.1) Eosinophils # (Auto) 0.0x10^3/uL (0.0-0.7) Basophils # (Auto) 0.0x10^3/uL (0.0-0.2) Sodium Level 124mmol/L (136-145) Potassium Level 4.2mmol/L (3.5-5.1) Chloride Level 90mmol/L (98-107) Carbon Dioxide Level 27mmol/L (21-32) Anion Gap 7 (6-14) Blood Urea Nitrogen 53mg/dL (8-26) Creatinine 1.5mg/dL (0.7-1.3) Estimated GFR (Cockcroft-Gault) 46.0 Glucose Level 135mg/dL (70-99) Uric Acid 9.0mg/dL (3.5-7.2) Calcium Level 7.7mg/dL (8.5-10.1) Phosphorus Level 3.3mg/dL (2.6-4.7) Albumin 2.6g/dL (3.4-5.0) Test 10/31/16 08:25 Glucose (Fingerstick) 143mg/dL (70-99) Laboratory Tests Test 10/30/16 12:35 10/30/16 12:40 10/30/16 14:00 10/30/16 14:10 Urine Collection Type U cath Urine Color Yellow Urine Clarity Cloudy Urine pH 5.5 Urine Specific [place] 1.015 Urine Protein Negativemg/dL (NEG-TRACE) 28.8mg/dL (Not Estab.) Urine Glucose (UA) Negativemg/dL (NEG) Urine Ketones (Stick) Negativemg/dL (NEG) Urine Blood Large (NEG) Urine Nitrite Negative (NEG) Urine Bilirubin Negative (NEG) Urine Urobilinogen Dipstick 1.0mg/dL (0.2 mg/dL) Urine Leukocyte Esterase Negative (NEG) Urine RBC 20-40/HPF (0-2) Urine WBC 1-4/HPF (0-4) Urine Squamous Epithelial Cells Few/LPF Urine Amorphous Sediment Present/HPF Urine Bacteria 0/HPF (0-FEW) Urine Hyaline Casts Few/HPF Urine Granular Casts Few/HPF Urine Mucus Slight/LPF Urine Creatinine 87.6mg/dL (Not Estab.) Urine Protein/Creatinine Ratio 329mg/g creat (0-200) Glucose (Fingerstick) 148mg/dL (70-99) 153mg/dL (70-99) Test 10/30/16 16:57 10/30/16 20:21 10/31/16 04:40 10/31/16 04:45 Glucose (Fingerstick) 149mg/dL (70-99) 173mg/dL (70-99) Lactic Acid Level 1.3mmol/L (0.4-2.0) Magnesium Level 2.1mg/dL (1.8-2.4) White Blood Count 9.7x10^3/uL (4.0-11.0) Red Blood Count 3.54x10^6/uL (4.30-5.70) Hemoglobin 9.1g/dL (13.0-17.5) Hematocrit 27.7% (39.0-53.0) Mean Corpuscular Volume 78fL (79-100) Mean Corpuscular Hemoglobin 26pg (25-35) Mean Corpuscular Hemoglobin Concent 33g/dL (31-37) Red Cell Distribution Width 18.8% (11.5-14.5) Platelet Count 156x10^3/uL (140-400) Neutrophils (%) (Auto) 77% (31-73) Lymphocytes (%) (Auto) 16% (24-48) Monocytes (%) (Auto) 7% (0-9) Eosinophils (%) (Auto) 0% (0-3) Basophils (%) (Auto) 0% (0-3) Neutrophils # (Auto) 7.4x10^3uL (1.8-7.7) Lymphocytes # (Auto) 1.6x10^3/uL (1.0-4.8) Monocytes # (Auto) 0.6x10^3/uL (0.0-1.1) Eosinophils # (Auto) 0.0x10^3/uL (0.0-0.7) Basophils # (Auto) 0.0x10^3/uL (0.0-0.2) Sodium Level 124mmol/L (136-145) Potassium Level 4.2mmol/L (3.5-5.1) Chloride Level 90mmol/L (98-107) Carbon Dioxide Level 27mmol/L (21-32) Anion Gap 7 (6-14) Blood Urea Nitrogen 53mg/dL (8-26) Creatinine 1.5mg/dL (0.7-1.3) Estimated GFR (Cockcroft-Gault) 46.0 Glucose Level 135mg/dL (70-99) Uric Acid 9.0mg/dL (3.5-7.2) Calcium Level 7.7mg/dL (8.5-10.1) Phosphorus Level 3.3mg/dL (2.6-4.7) Albumin 2.6g/dL (3.4-5.0) Test 10/31/16 08:25 Glucose (Fingerstick) 143mg/dL (70-99) Medications Active Scripts Medications Dose Route/Sig Days Date Category Tamsulosin Hcl 0.4 Mg Cap.er.24h 0.4 Mg PO QHS 10/27/16 Reported Onglyza (Saxagliptin Hcl) 5 Mg Tablet 1 Tab PO DAILY 10/27/16 Reported Crestor (Rosuvastatin Calcium) 10 Mg Tablet 0.5 Tab PO DAILY 10/27/16 Reported Potassium Chloride 20 Meq Tablet.er 10 Meq PO DAILY 10/27/16 Reported Omeprazole 20 Mg Tablet. 1 Tab PO BID 10/27/16 Reported Nitrostat (Nitroglycerin) 0.3 Mg Tab.subl 0.3 Mg SL PRN Q5MIN PRN 10/27/16 Reported Methocarbamol 500 Mg Tablet 500 Mg PO PRN TID PRN 10/27/16 Reported [place]ay Ultra Strength (Menthol) 1 Each Adh..patch 1 Each TP TID 10/27/16 Reported Lisinopril 40 Mg Tablet 1 Tab PO DAILY 10/27/16 Reported Levothyroxine Sodium 125 Mcg Tablet 1 Tab PO DAILY 10/27/16 Reported Novolog Flexpen (Insulin Aspart) 100 Unit/1 Ml Insuln.pen 11 Unit SQ TIDWMEALS 10/27/16 Reported Gabapentin 300 Mg Capsule 300 Mg PO TID 10/27/16 Reported Furosemide 40 Mg Tablet 40 Mg PO BID 10/27/16 Reported Ferrous Sulfate 324 Mg Tablet.dr 324 Mg PO BID 10/27/16 Reported Cardizem Cd (Diltiazem Hcl) 300 Mg Cap.er.24h 300 Mg PO DAILY 10/27/16 Reported Vitamin D3 (Cholecalciferol (Vitamin D3)) 1,000 Unit Tablet 1 Tab PO DAILY 10/27/16 Reported Refresh Optive Advanced Drops (Carboxymethyl/Glycerin/Poly80) 10 Ml Drops 1 Drop OP PRN QID PRN 10/27/16 Reported Alphagan P (Brimonidine Tartrate) 5 Ml Drops 1 Drop EACHEYE BID 10/27/16 Reported Aspirin 325 Mg Tablet 1 Tab PO DAILY 10/27/16 Reported Albuterol Sulfate Conc Neb Soln (Albuterol Sulfate) 2.5 Mg/0.5 Ml Vial.neb 1 Vial NEB Q4HRS 10/27/16 Reported Combivent Respimat Inhal (Ipratropium/Albuterol Sulfate) 4 Gm Aer.w.adap 1 Inh IH QID 10/27/16 Reported Impression . 1. Acute hypoxemic respiratory failure/AECOPD/ Acute on chronic systolic/ Diastolic HF 2. Acute on chronic kidney failure. 3. Chronic heart failure, Acute on chronic systolic/ diastolic heart failure. 4. Cardiomyopathy. (EF improved from 25 to 50%) 5. Status post pacemaker. 6. Coronary artery disease, status post coronary artery bypass grafting. 7. Hypertension. 8. Obstructive sleep apnea. 9. Acute on chronic blood-loss anemia. 10. Metabolic acidosis, suspect secondary to renal tubular acidosis, chronic kidney disease. Plan . 1. BiPAP with oxygen supplementation prn 2. Venous Dopplers of the lower extremities, neg 3. Follow cardiology input 4. No need for antibiotics. 5. Monitor hemoglobin and hematocrit. 6. repeat cxr with no CHF REFUGIO SALAZAR MD October 31, 2016 11:09
--- NOTE | 2016-10-31 12:57 | PDOC ---
PROGRESS NOTES Chief Complaint Chief Complaint cc:CHF exacerbation GI bleed Critical Hypotension PPM CABG Diabetes Hypertension Hyperlipidemia Debility History of Present Illness History of Present Illness Mr. Hanks was receiving hypertonic saline treatment when we saw him. His SpO2% was at 100 with a CPAP at bedside. He had a double lumen central line in L neck. We discussed care with his nurse. . Vitals Vitals Vital Signs Date Time Temp Pulse Resp B/P Pulse Ox O2 Delivery O2 Flow Rate FiO2 10/31/16 11:18 97.9 76 18 78/38 93 BiPAP/CPAP 5.0 97.9 Physical Exam General: Alert, No acute distress Heart: Regular rate, Normal S1, Normal S2, No murmurs Lungs: Other (few rhonchi) Abdomen: Normal bowel sounds, Soft Extremities: No clubbing, Normal pulses Skin: No rashes, No breakdown Labs LABS Laboratory Tests Test 10/30/16 14:00 10/30/16 14:10 10/30/16 16:57 10/30/16 20:21 Glucose (Fingerstick) 148mg/dL (70-99) 153mg/dL (70-99) 149mg/dL (70-99) 173mg/dL (70-99) Test 10/31/16 04:40 10/31/16 04:45 10/31/16 08:25 10/31/16 11:55 Lactic Acid Level 1.3mmol/L (0.4-2.0) Magnesium Level 2.1mg/dL (1.8-2.4) White Blood Count 9.7x10^3/uL (4.0-11.0) Red Blood Count 3.54x10^6/uL (4.30-5.70) Hemoglobin 9.1g/dL (13.0-17.5) Hematocrit 27.7% (39.0-53.0) Mean Corpuscular Volume 78fL (79-100) Mean Corpuscular Hemoglobin 26pg (25-35) Mean Corpuscular Hemoglobin Concent 33g/dL (31-37) Red Cell Distribution Width 18.8% (11.5-14.5) Platelet Count 156x10^3/uL (140-400) Neutrophils (%) (Auto) 77% (31-73) Lymphocytes (%) (Auto) 16% (24-48) Monocytes (%) (Auto) 7% (0-9) Eosinophils (%) (Auto) 0% (0-3) Basophils (%) (Auto) 0% (0-3) Neutrophils # (Auto) 7.4x10^3uL (1.8-7.7) Lymphocytes # (Auto) 1.6x10^3/uL (1.0-4.8) Monocytes # (Auto) 0.6x10^3/uL (0.0-1.1) Eosinophils # (Auto) 0.0x10^3/uL (0.0-0.7) Basophils # (Auto) 0.0x10^3/uL (0.0-0.2) Sodium Level 124mmol/L (136-145) 124mmol/L (136-145) Potassium Level 4.2mmol/L (3.5-5.1) Chloride Level 90mmol/L (98-107) Carbon Dioxide Level 27mmol/L (21-32) Anion Gap 7 (6-14) Blood Urea Nitrogen 53mg/dL (8-26) Creatinine 1.5mg/dL (0.7-1.3) Estimated GFR (Cockcroft-Gault) 46.0 Glucose Level 135mg/dL (70-99) Uric Acid 9.0mg/dL (3.5-7.2) Calcium Level 7.7mg/dL (8.5-10.1) Phosphorus Level 3.3mg/dL (2.6-4.7) Albumin 2.6g/dL (3.4-5.0) Glucose (Fingerstick) 143mg/dL (70-99) Review of Systems Review of Systems General: complains of weakness GI: denies N/V/D/C Assessment and Plan Assessmemt and Plan Problems Medical Problems: (1) CHF exacerbation Status: Acute Assessment: CHF exacerbation GI bleed Critical Hypotension PPM CABG Diabetes Hypertension Hyperlipidemia Debility Plan: -Monitor Na closely with 3% hypertonic saline infusion -Monitor Hg/Hct due to GI bleed -PT/OT if appropriate -Recheck AM labs -Subspecialty input appreciated Problems: Comment Review of Relevant I have reviewed the following items dorian (where applicable) has been applied. Labs Laboratory Tests Test 10/29/16 15:35 10/29/16 17:36 10/29/16 20:20 10/30/16 00:00 Sodium Level 124mmol/L (136-145) 124mmol/L (136-145) 125mmol/L (136-145) Glucose (Fingerstick) 155mg/dL (70-99) Test 10/30/16 04:45 10/30/16 07:21 10/30/16 12:35 10/30/16 12:40 White Blood Count 7.0x10^3/uL (4.0-11.0) Red Blood Count 3.52x10^6/uL (4.30-5.70) Hemoglobin 9.1g/dL (13.0-17.5) Hematocrit 27.7% (39.0-53.0) Mean Corpuscular Volume 79fL (79-100) Mean Corpuscular Hemoglobin 26pg (25-35) Mean Corpuscular Hemoglobin Concent 33g/dL (31-37) Red Cell Distribution Width 18.7% (11.5-14.5) Platelet Count 130x10^3/uL (140-400) Neutrophils (%) (Auto) 72% (31-73) Lymphocytes (%) (Auto) 19% (24-48) Monocytes (%) (Auto) 8% (0-9) Eosinophils (%) (Auto) 0% (0-3) Basophils (%) (Auto) 1% (0-3) Neutrophils # (Auto) 5.1x10^3uL (1.8-7.7) Lymphocytes # (Auto) 1.3x10^3/uL (1.0-4.8) Monocytes # (Auto) 0.5x10^3/uL (0.0-1.1) Eosinophils # (Auto) 0.0x10^3/uL (0.0-0.7) Basophils # (Auto) 0.1x10^3/uL (0.0-0.2) Reticulocyte Count (auto) 1.1% (0.5-2.5) Sodium Level 125mmol/L (136-145) Potassium Level 4.1mmol/L (3.5-5.1) Chloride Level 90mmol/L (98-107) Carbon Dioxide Level 24mmol/L (21-32) Anion Gap 11 (6-14) Blood Urea Nitrogen 75mg/dL (8-26) Creatinine 2.1mg/dL (0.7-1.3) Estimated GFR (Cockcroft-Gault) 31.2 Glucose Level 166mg/dL (70-99) Lactic Acid Level 1.2mmol/L (0.4-2.0) Calcium Level 7.6mg/dL (8.5-10.1) Phosphorus Level 4.0mg/dL (2.6-4.7) Iron Level 11ug/dL (65-175) Total Iron Binding Capacity 279ug/dL (250-450) Iron Saturation 4% (15-34) Ferritin 660ng/mL (26-388) Albumin 2.6g/dL (3.4-5.0) Cortisol AM Sample 23.2ug/dL (6.2-19.4) Glucose (Fingerstick) 161mg/dL (70-99) Urine Collection Type U cath Urine Color Yellow Urine Clarity Cloudy Urine pH 5.5 Urine Specific Elizabeth 1.015 Urine Protein Negativemg/dL (NEG-TRACE) 28.8mg/dL (Not Estab.) Urine Glucose (UA) Negativemg/dL (NEG) Urine Ketones (Stick) Negativemg/dL (NEG) Urine Blood Large (NEG) Urine Nitrite Negative (NEG) Urine Bilirubin Negative (NEG) Urine Urobilinogen Dipstick 1.0mg/dL (0.2 mg/dL) Urine Leukocyte Esterase Negative (NEG) Urine RBC 20-40/HPF (0-2) Urine WBC 1-4/HPF (0-4) Urine Squamous Epithelial Cells Few/LPF Urine Amorphous Sediment Present/HPF Urine Bacteria 0/HPF (0-FEW) Urine Hyaline Casts Few/HPF Urine Granular Casts Few/HPF Urine Mucus Slight/LPF Urine Creatinine 87.6mg/dL (Not Estab.) Urine Protein/Creatinine Ratio 329mg/g creat (0-200) Test 10/30/16 14:00 10/30/16 14:10 10/30/16 16:57 10/30/16 20:21 Glucose (Fingerstick) 148mg/dL (70-99) 153mg/dL (70-99) 149mg/dL (70-99) 173mg/dL (70-99) Test 10/31/16 04:40 10/31/16 04:45 10/31/16 08:25 10/31/16 11:55 Lactic Acid Level 1.3mmol/L (0.4-2.0) Magnesium Level 2.1mg/dL (1.8-2.4) White Blood Count 9.7x10^3/uL (4.0-11.0) Red Blood Count 3.54x10^6/uL (4.30-5.70) Hemoglobin 9.1g/dL (13.0-17.5) Hematocrit 27.7% (39.0-53.0) Mean Corpuscular Volume 78fL (79-100) Mean Corpuscular Hemoglobin 26pg (25-35) Mean Corpuscular Hemoglobin Concent 33g/dL (31-37) Red Cell Distribution Width 18.8% (11.5-14.5) Platelet Count 156x10^3/uL (140-400) Neutrophils (%) (Auto) 77% (31-73) Lymphocytes (%) (Auto) 16% (24-48) Monocytes (%) (Auto) 7% (0-9) Eosinophils (%) (Auto) 0% (0-3) Basophils (%) (Auto) 0% (0-3) Neutrophils # (Auto) 7.4x10^3uL (1.8-7.7) Lymphocytes # (Auto) 1.6x10^3/uL (1.0-4.8) Monocytes # (Auto) 0.6x10^3/uL (0.0-1.1) Eosinophils # (Auto) 0.0x10^3/uL (0.0-0.7) Basophils # (Auto) 0.0x10^3/uL (0.0-0.2) Sodium Level 124mmol/L (136-145) 124mmol/L (136-145) Potassium Level 4.2mmol/L (3.5-5.1) Chloride Level 90mmol/L (98-107) Carbon Dioxide Level 27mmol/L (21-32) Anion Gap 7 (6-14) Blood Urea Nitrogen 53mg/dL (8-26) Creatinine 1.5mg/dL (0.7-1.3) Estimated GFR (Cockcroft-Gault) 46.0 Glucose Level 135mg/dL (70-99) Uric Acid 9.0mg/dL (3.5-7.2) Calcium Level 7.7mg/dL (8.5-10.1) Phosphorus Level 3.3mg/dL (2.6-4.7) Albumin 2.6g/dL (3.4-5.0) Glucose (Fingerstick) 143mg/dL (70-99) Laboratory Tests Test 10/30/16 14:00 10/30/16 14:10 10/30/16 16:57 10/30/16 20:21 Glucose (Fingerstick) 148mg/dL (70-99) 153mg/dL (70-99) 149mg/dL (70-99) 173mg/dL (70-99) Test 10/31/16 04:40 10/31/16 04:45 10/31/16 08:25 10/31/16 11:55 Lactic Acid Level 1.3mmol/L (0.4-2.0) Magnesium Level 2.1mg/dL (1.8-2.4) White Blood Count 9.7x10^3/uL (4.0-11.0) Red Blood Count 3.54x10^6/uL (4.30-5.70) Hemoglobin 9.1g/dL (13.0-17.5) Hematocrit 27.7% (39.0-53.0) Mean Corpuscular Volume 78fL (79-100) Mean Corpuscular Hemoglobin 26pg (25-35) Mean Corpuscular Hemoglobin Concent 33g/dL (31-37) Red Cell Distribution Width 18.8% (11.5-14.5) Platelet Count 156x10^3/uL (140-400) Neutrophils (%) (Auto) 77% (31-73) Lymphocytes (%) (Auto) 16% (24-48) Monocytes (%) (Auto) 7% (0-9) Eosinophils (%) (Auto) 0% (0-3) Basophils (%) (Auto) 0% (0-3) Neutrophils # (Auto) 7.4x10^3uL (1.8-7.7) Lymphocytes # (Auto) 1.6x10^3/uL (1.0-4.8) Monocytes # (Auto) 0.6x10^3/uL (0.0-1.1) Eosinophils # (Auto) 0.0x10^3/uL (0.0-0.7) Basophils # (Auto) 0.0x10^3/uL (0.0-0.2) Sodium Level 124mmol/L (136-145) 124mmol/L (136-145) Potassium Level 4.2mmol/L (3.5-5.1) Chloride Level 90mmol/L (98-107) Carbon Dioxide Level 27mmol/L (21-32) Anion Gap 7 (6-14) Blood Urea Nitrogen 53mg/dL (8-26) Creatinine 1.5mg/dL (0.7-1.3) Estimated GFR (Cockcroft-Gault) 46.0 Glucose Level 135mg/dL (70-99) Uric Acid 9.0mg/dL (3.5-7.2) Calcium Level 7.7mg/dL (8.5-10.1) Phosphorus Level 3.3mg/dL (2.6-4.7) Albumin 2.6g/dL (3.4-5.0) Glucose (Fingerstick) 143mg/dL (70-99) Microbiology 10/27/16 Urine Culture - Final, Complete 10/27/16 Urine Culture Result 1 (JANEL) - Final, Complete Medications Current Medications Pantoprazole Sodium 40 mg 40 mg DAILYAC IVP Last administered on 10/30/16 08:32 ; Start 10/26/16 at 17:00; Stop 10/30/16 at 11:57; Status DC Dobutamine HCl/ Dextrose 250 ml @ 0 mls/hr CONT PRN IV SEE I/O RECORD Last administered on 10/29/16 03:02; Start 10/26/16 at 17:00; Stop 10/30/16 at 10:57 ; Status DC Furosemide (Lasix) 60 mg 1X ONCE IVP Last administered on 10/27/16 08:15; Start 10/27/16 at 08:30; Stop 10/27/16 at 08:31; Status DC Sodium Bicarbonate 50 meq Q2HR IV Last administered on 10/27/16 12:38; Start 10/27/16 at 10:00; Stop 10/27/16 at 12:01; Status DC Albuterol/ Ipratropium (Duoneb) 3 ml RTQID NEB Last administered on 10/31/16 11 :05; Start 10/27/16 at 12:00 Heparin Sodium (Porcine) (Heparin Sodium) 10,000 unit STK-MED ONCE .ROUTE ; Start 10/27/16 at 10:01; Stop 10/27/16 at 10:02; Status DC Lidocaine/Sodium Bicarbonate 20 ml 20 ml STK-MED ONCE IJ ; Start 10/27/16 at 10: 01; Stop 10/27/16 at 10:02; Status DC Heparin Sodium/ Sodium Chloride 500 ml @ As Directed STK-MED ONCE .ROUTE ; Start 10/27/16 at 10:01; Stop 10/27/16 at 10:02; Status DC Lidocaine/Sodium Bicarbonate (Buffered Lidocaine 1%) 3 ml 1X ONCE IJ Last administered on 10/27/16 12:16; Start 10/27/16 at 10:15; Stop 10/27/16 at 10:16 ; Status DC Heparin Sodium/ Sodium Chloride 60 unit 1X ONCE IV Last administered on 12:14; Start 10/27/16 at 10:15; Stop 10/27/16 at 10:16; Status DC Heparin Sodium (Porcine) (Heparin Sodium) 2,500 unit 1X ONCE INT CAT Last administered on 10/27/16 12:16; Start 10/27/16 at 10:15; Stop 10/27/16 at 10:16 ; Status DC Aspirin (Krystian Aspirin) 325 mg DAILY PO Last administered on 10/31/16 08:38; Start 10/27/16 at 12:00 Vitamin D (Vitamin D3) 1,000 unit DAILY PO Last administered on 10/31/16 08:37 ; Start 10/27/16 at 12:00 Diltiazem HCl (Cardizem Cd) 300 mg DAILY PO Last administered on 10/30/16 08:23 ; Start 10/27/16 at 12:00 Furosemide (Lasix) 40 mg [id number] PO Last administered on 10/28/16 17:13; Start 10/27/16 at 12:00; Stop 10/29/16 at 07:12; Status DC Insulin Aspart (Novolog) 11 units TIDWMEALS SQ Last administered on 10/31/16 08 :28; Start 10/27/16 at 12:00 Levothyroxine Sodium (Synthroid) 125 mcg DAILY07 PO Last administered on 05:27; Start 10/27/16 at 12:00 Lisinopril (Prinivil) 40 mg DAILY PO Last administered on 10/27/16 13:22; Start 10/27/16 at 12:00 Methocarbamol (Robaxin) 500 mg PRN TID PRN PO MUSCLE SPASMS Last administered on 10/30/16 01:25; Start 10/27/16 at 11:15 Tamsulosin HCl (Flomax) 0.4 mg QHS PO Last administered on 10/30/16 20:23; Start 10/27/16 at 21:00 Albuterol Sulfate (Ventolin Neb Soln) 2.5 mg PRN Q4HRS PRN NEB SHORTNESS OF BREATH Last administered on 10/30/16 01:38; Start 10/27/16 at 11:30 Brimonidine Tartrate (Alphagan) 1 drop BID OU Last administered on 10/31/16 08: 38; Start 10/27/16 at 12:00 Artificial Tears (Artificial Tears) 1 drop PRN Q15MIN PRN OU DRY EYE; Start at 11:30 Ferrous Sulfate (Feosol) 325 mg BIDWMEALS PO Last administered on 10/31/16 08: 31; Start 10/27/16 at 12:00 Gabapentin (Neurontin) 300 mg BID PO Last administered on 10/31/16 08:40; Start 10/27/16 at 12:00 Non-Formulary Medication 1 inh QID IH ; Start 10/27/16 at 13:00; Status UNV Non-Formulary Medication 1 each TID TP ; Start 10/27/16 at 14:00; Status UNV Non-Formulary Medication 1 tab BID PO ; Start 10/27/16 at 21:00; Status UNV Potassium Chloride (Klor-Con) 10 meq [id number] PO Last administered on 08:31; Start 10/28/16 at 08:00 Atorvastatin Calcium (Lipitor) 20 mg QHS PO Last administered on 10/30/16 20:23 ; Start 10/27/16 at 21:00 Linagliptin (Tradjenta) 5 mg DAILY PO Last administered on 10/31/16 08:38; Start 10/27/16 at 12:00 Furosemide (Lasix) 60 mg 1X ONCE IVP ; Start 10/28/16 at 08:00; Stop 10/28/16 at 08:01; Status DC Sodium Bicarbonate 50 meq 50 meq Q2HR IV Last administered on 10/29/16 10:14; Start 10/29/16 at 08:00; Stop 10/29/16 at 10:01; Status DC Sodium Bicarbonate 150 meq/Sterile Water 1,150 ml @ 80 mls/hr [id number] PRN IV . Last administered on 10/29/16 16:41; Start 10/29/16 at 07:45; Stop 10/30/16 at 12:28; Status DC Sodium Chloride (Hypertonic Saline) 500 ml @ 30 mls/hr CONT PRN PRN IV see comments; Start 10/29/16 at 07:45; Stop 10/30/16 at 12:28; Status DC Acetaminophen (Tylenol) 650 mg PRN Q6HRS PRN PO PAIN Last administered on 16:52; Start 10/29/16 at 11:15 Nystatin (Nystop) 1 summer TID PRN PRN TP REDNESS; Start 10/29/16 at 11:15 Multi-Ingredient Ointment 1 summer 1 summer PRN QID PRN TP MUSCLE PAIN Last administered on 10/30/16 16:52; Start 10/29/16 at 11:15 Magnesium Sulfate/ Dextrose 50 ml @ 25 mls/hr PRN DAILY PRN IV for Mag < 1.7 on am labs; Start 10/30/16 at 09:45 Dobutamine HCl/ Dextrose 250 ml @ 0 mls/hr CONT PRN IV SEE I/O RECORD; Start at 11:00 Pantoprazole Sodium 40 mg 40 mg DAILYAC PO Last administered on 10/31/16 08:31 ; Start 10/31/16 at 07:30 Iron Sucrose 200 mg/Sodium Chloride 110 ml @ 55 mls/hr 3X/WEEK IV ; Start at 09:00; Stop 11/10/16 at 10:59 Sodium Chloride (Hypertonic Saline) 500 ml @ 30 mls/hr CONT PRN PRN IV see comments Last administered on 10/31/16t 09:22; Start 10/31/16 at 09:00 Active Scripts Active Reported Tamsulosin Hcl 0.4 Mg Cap.er.24h 0.4 Mg PO QHS Onglyza (Saxagliptin Hcl) 5 Mg Tablet 1 Tab PO DAILY Crestor (Rosuvastatin Calcium) 10 Mg Tablet 0.5 Tab PO DAILY Potassium Chloride 20 Meq Tablet.er 10 Meq PO DAILY Omeprazole 20 Mg Tablet.dr 1 Tab PO BID Nitrostat (Nitroglycerin) 0.3 Mg Tab.subl 0.3 Mg SL PRN Q5MIN PRN Methocarbamol 500 Mg Tablet 500 Mg PO PRN TID PRN Bengay Ultra Strength (Menthol) 1 Each Adh..patch 1 Each TP TID Lisinopril 40 Mg Tablet 1 Tab PO DAILY Levothyroxine Sodium 125 Mcg Tablet 1 Tab PO DAILY Novolog Flexpen (Insulin Aspart) 100 Unit/1 Ml Insuln.pen 11 Unit SQ TIDWMEALS Gabapentin 300 Mg Capsule 300 Mg PO TID Furosemide 40 Mg Tablet 40 Mg PO BID Ferrous Sulfate 324 Mg Tablet.dr 324 Mg PO BID Cardizem Cd (Diltiazem Hcl) 300 Mg Cap.er.24h 300 Mg PO DAILY Vitamin D3 (Cholecalciferol (Vitamin D3)) 1,000 Unit Tablet 1 Tab PO DAILY Refresh Optive Advanced Drops (Carboxymethyl/Glycerin/Poly80) 10 Ml Drops 1 Drop OP PRN QID PRN Alphagan P (Brimonidine Tartrate) 5 Ml Drops 1 Drop EACHEYE BID Aspirin 325 Mg Tablet 1 Tab PO DAILY Albuterol Sulfate Conc Neb Soln (Albuterol Sulfate) 2.5 Mg/0.5 Ml Vial.neb 1 Vial NEB Q4HRS Combivent Respimat Inhal (Ipratropium/Albuterol Sulfate) 4 Gm Aer.w.adap 1 Inh IH QID Vitals/I & O Vital Sign - Last 24 Hours 10/30/16 10/30/16 10/30/16 10/30/16 14:00 16:00 16:00 16:27 Temp 98.0 98.0 98.0 98.0 Pulse 75 75 Resp 18 15 B/P 99/41 117/48 Pulse Ox 96 96 91 O2 Delivery Bi-pap Nasal Cannula O2 Flow Rate 4.0 4.0 5.0 10/30/16 10/30/16 10/30/16 10/30/16 18:00 19:00 19:47 19:49 Temp 98.0 98.2 98.0 98.2 Pulse 85 71 Resp 16 20 B/P 99/40 90/43 Pulse Ox 91 93 93 O2 Delivery Nasal Cannula Nasal Cannula Nasal Cannula O2 Flow Rate 5.0 5.0 4.0 5.0 10/30/16 10/30/16 10/30/16 10/30/16 20:03 21:11 22:13 22:57 Pulse 76 71 70 Resp 18 20 18 B/P 101/52 112/49 112/52 Pulse Ox 94 96 93 94 O2 Delivery BiPAP/CPAP BiPAP/CPAP BiPAP/CPAP BiPAP/CPAP 10/30/16 10/31/16 10/31/16 10/31/16 23:09 00:03 00:04 01:00 Temp 98.7 98.7 Pulse 71 71 Resp 18 20 B/P 114/79 114/56 Pulse Ox 96 93 93 O2 Delivery BiPAP/CPAP BiPAP/CPAP Bi-pap BiPAP/CPAP O2 Flow Rate 10/31/16 10/31/16 10/31/16 10/31/16 01:00 02:00 03:00 03:40 Temp 98.7 98.7 Pulse 76 71 76 Resp 20 18 18 B/P 123/59 119/56 107/55 Pulse Ox 94 91 90 92 O2 Delivery BiPAP/CPAP Nasal Cannula Nasal Cannula BiPAP/CPAP O2 Flow Rate 4.0 4.0 10/31/16 10/31/16 10/31/16 10/31/16 04:00 04:00 04:55 05:10 Pulse 92 71 Resp 18 18 B/P 112/57 106/55 Pulse Ox 94 94 95 O2 Delivery BiPAP/CPAP Bi-pap BiPAP/CPAP BiPAP/CPAP 10/31/16 10/31/16 10/31/16 10/31/16 06:00 07:16 08:00 08:00 Temp 98.7 98.7 98.7 98.7 Pulse 71 71 76 Resp 20 16 B/P 104/54 100/53 95/53 Pulse Ox 94 94 94 O2 Delivery BiPAP/CPAP Nasal Cannula Bi-pap O2 Flow Rate 4.0 5.0 10/31/16 10/31/16 10/31/16 10/31/16 08:04 09:00 09:00 09:07 Temp 97.9 97.9 Pulse 75 75 75 Resp 18 B/P 95/54 95/54 98/75 Pulse Ox 93 93 O2 Delivery Nasal Cannula O2 Flow Rate 5.0 5.0 10/31/16 10/31/16 10:15 11:18 Temp 97.9 97.9 97.9 97.9 Pulse 75 76 Resp 18 18 B/P 95/54 78/38 Pulse Ox 93 93 O2 Delivery BiPAP/CPAP O2 Flow Rate 5.0 5.0 Intake and Output 10/30/16 10/30/16 10/31/16 15:00 23:00 07:00 Intake Total 447 ml 250 ml 893 ml Output Total 725 ml 1050 ml 1100 ml Balance -278 ml -800 ml -207 ml ARGENIS BURT III DO October 31, 2016 12:57
--- NOTE | 2016-10-31 17:35 | PDOC ---
PROGRESS NOTES Subjective Subjective Pt feels a little better today. No new cardiac complaints Objective Objective Vital Signs Date Time Temp Pulse Resp B/P Pulse Ox O2 Delivery O2 Flow Rate FiO2 10/31/16 17:20 97.9 72 17 118/58 91 Nasal Cannula 5.0 97.9 Intake and Output 10/31/16 07:00 Intake Total 1590 ml Output Total 2875 ml Balance -1285 ml Intake Oral 1547 ml IV Total 43 ml Output Urine Total 2875 ml Physical Exam Physical Exam Moving air little better. No changes in cardiac exam Assessment Assessment We have discussed the situation. Patient agrees to go for a heart catheterization in the morning. Problems Medical Problems: (1) CHF exacerbation Status: Acute Comment Review of Relevant I have reviewed the following items dorian (where applicable) has been applied. Labs Laboratory Tests Test 10/29/16 17:36 10/29/16 20:20 10/30/16 00:00 10/30/16 04:45 Glucose (Fingerstick) 155mg/dL (70-99) Sodium Level 124mmol/L (136-145) 125mmol/L (136-145) 125mmol/L (136-145) White Blood Count 7.0x10^3/uL (4.0-11.0) Red Blood Count 3.52x10^6/uL (4.30-5.70) Hemoglobin 9.1g/dL (13.0-17.5) Hematocrit 27.7% (39.0-53.0) Mean Corpuscular Volume 79fL (79-100) Mean Corpuscular Hemoglobin 26pg (25-35) Mean Corpuscular Hemoglobin Concent 33g/dL (31-37) Red Cell Distribution Width 18.7% (11.5-14.5) Platelet Count 130x10^3/uL (140-400) Neutrophils (%) (Auto) 72% (31-73) Lymphocytes (%) (Auto) 19% (24-48) Monocytes (%) (Auto) 8% (0-9) Eosinophils (%) (Auto) 0% (0-3) Basophils (%) (Auto) 1% (0-3) Neutrophils # (Auto) 5.1x10^3uL (1.8-7.7) Lymphocytes # (Auto) 1.3x10^3/uL (1.0-4.8) Monocytes # (Auto) 0.5x10^3/uL (0.0-1.1) Eosinophils # (Auto) 0.0x10^3/uL (0.0-0.7) Basophils # (Auto) 0.1x10^3/uL (0.0-0.2) Reticulocyte Count (auto) 1.1% (0.5-2.5) Potassium Level 4.1mmol/L (3.5-5.1) Chloride Level 90mmol/L (98-107) Carbon Dioxide Level 24mmol/L (21-32) Anion Gap 11 (6-14) Blood Urea Nitrogen 75mg/dL (8-26) Creatinine 2.1mg/dL (0.7-1.3) Estimated GFR (Cockcroft-Gault) 31.2 Glucose Level 166mg/dL (70-99) Lactic Acid Level 1.2mmol/L (0.4-2.0) Calcium Level 7.6mg/dL (8.5-10.1) Phosphorus Level 4.0mg/dL (2.6-4.7) Iron Level 11ug/dL (65-175) Total Iron Binding Capacity 279ug/dL (250-450) Iron Saturation 4% (15-34) Ferritin 660ng/mL (26-388) Albumin 2.6g/dL (3.4-5.0) Cortisol AM Sample 23.2ug/dL (6.2-19.4) Test 10/30/16 07:21 10/30/16 12:35 10/30/16 12:40 10/30/16 14:00 Glucose (Fingerstick) 161mg/dL (70-99) 148mg/dL (70-99) Urine Collection Type U cath Urine Color Yellow Urine Clarity Cloudy Urine pH 5.5 Urine Specific [place] 1.015 Urine Protein Negativemg/dL (NEG-TRACE) 28.8mg/dL (Not Estab.) Urine Glucose (UA) Negativemg/dL (NEG) Urine Ketones (Stick) Negativemg/dL (NEG) Urine Blood Large (NEG) Urine Nitrite Negative (NEG) Urine Bilirubin Negative (NEG) Urine Urobilinogen Dipstick 1.0mg/dL (0.2 mg/dL) Urine Leukocyte Esterase Negative (NEG) Urine RBC 20-40/HPF (0-2) Urine WBC 1-4/HPF (0-4) Urine Squamous Epithelial Cells Few/LPF Urine Amorphous Sediment Present/HPF Urine Bacteria 0/HPF (0-FEW) Urine Hyaline Casts Few/HPF Urine Granular Casts Few/HPF Urine Mucus Slight/LPF Urine Creatinine 87.6mg/dL (Not Estab.) Urine Protein/Creatinine Ratio 329mg/g creat (0-200) Test 10/30/16 14:10 10/30/16 16:57 10/30/16 20:21 10/31/16 04:40 Glucose (Fingerstick) 153mg/dL (70-99) 149mg/dL (70-99) 173mg/dL (70-99) Lactic Acid Level 1.3mmol/L (0.4-2.0) Magnesium Level 2.1mg/dL (1.8-2.4) Test 10/31/16 04:45 10/31/16 08:25 10/31/16 11:55 10/31/16 13:02 White Blood Count 9.7x10^3/uL (4.0-11.0) Red Blood Count 3.54x10^6/uL (4.30-5.70) Hemoglobin 9.1g/dL (13.0-17.5) Hematocrit 27.7% (39.0-53.0) Mean Corpuscular Volume 78fL (79-100) Mean Corpuscular Hemoglobin 26pg (25-35) Mean Corpuscular Hemoglobin Concent 33g/dL (31-37) Red Cell Distribution Width 18.8% (11.5-14.5) Platelet Count 156x10^3/uL (140-400) Neutrophils (%) (Auto) 77% (31-73) Lymphocytes (%) (Auto) 16% (24-48) Monocytes (%) (Auto) 7% (0-9) Eosinophils (%) (Auto) 0% (0-3) Basophils (%) (Auto) 0% (0-3) Neutrophils # (Auto) 7.4x10^3uL (1.8-7.7) Lymphocytes # (Auto) 1.6x10^3/uL (1.0-4.8) Monocytes # (Auto) 0.6x10^3/uL (0.0-1.1) Eosinophils # (Auto) 0.0x10^3/uL (0.0-0.7) Basophils # (Auto) 0.0x10^3/uL (0.0-0.2) Sodium Level 124mmol/L (136-145) 124mmol/L (136-145) Potassium Level 4.2mmol/L (3.5-5.1) Chloride Level 90mmol/L (98-107) Carbon Dioxide Level 27mmol/L (21-32) Anion Gap 7 (6-14) Blood Urea Nitrogen 53mg/dL (8-26) Creatinine 1.5mg/dL (0.7-1.3) Estimated GFR (Cockcroft-Gault) 46.0 Glucose Level 135mg/dL (70-99) Uric Acid 9.0mg/dL (3.5-7.2) Calcium Level 7.7mg/dL (8.5-10.1) Phosphorus Level 3.3mg/dL (2.6-4.7) Albumin 2.6g/dL (3.4-5.0) Glucose (Fingerstick) 143mg/dL (70-99) 152mg/dL (70-99) Test 10/31/16 16:00 Sodium Level 126mmol/L (136-145) Laboratory Tests Test 10/30/16 20:21 10/31/16 04:40 10/31/16 04:45 10/31/16 08:25 Glucose (Fingerstick) 173mg/dL (70-99) 143mg/dL (70-99) Lactic Acid Level 1.3mmol/L (0.4-2.0) Magnesium Level 2.1mg/dL (1.8-2.4) White Blood Count 9.7x10^3/uL (4.0-11.0) Red Blood Count 3.54x10^6/uL (4.30-5.70) Hemoglobin 9.1g/dL (13.0-17.5) Hematocrit 27.7% (39.0-53.0) Mean Corpuscular Volume 78fL (79-100) Mean Corpuscular Hemoglobin 26pg (25-35) Mean Corpuscular Hemoglobin Concent 33g/dL (31-37) Red Cell Distribution Width 18.8% (11.5-14.5) Platelet Count 156x10^3/uL (140-400) Neutrophils (%) (Auto) 77% (31-73) Lymphocytes (%) (Auto) 16% (24-48) Monocytes (%) (Auto) 7% (0-9) Eosinophils (%) (Auto) 0% (0-3) Basophils (%) (Auto) 0% (0-3) Neutrophils # (Auto) 7.4x10^3uL (1.8-7.7) Lymphocytes # (Auto) 1.6x10^3/uL (1.0-4.8) Monocytes # (Auto) 0.6x10^3/uL (0.0-1.1) Eosinophils # (Auto) 0.0x10^3/uL (0.0-0.7) Basophils # (Auto) 0.0x10^3/uL (0.0-0.2) Sodium Level 124mmol/L (136-145) Potassium Level 4.2mmol/L (3.5-5.1) Chloride Level 90mmol/L (98-107) Carbon Dioxide Level 27mmol/L (21-32) Anion Gap 7 (6-14) Blood Urea Nitrogen 53mg/dL (8-26) Creatinine 1.5mg/dL (0.7-1.3) Estimated GFR (Cockcroft-Gault) 46.0 Glucose Level 135mg/dL (70-99) Uric Acid 9.0mg/dL (3.5-7.2) Calcium Level 7.7mg/dL (8.5-10.1) Phosphorus Level 3.3mg/dL (2.6-4.7) Albumin 2.6g/dL (3.4-5.0) Test 10/31/16 11:55 10/31/16 13:02 10/31/16 16:00 Sodium Level 124mmol/L (136-145) 126mmol/L (136-145) Glucose (Fingerstick) 152mg/dL (70-99) Microbiology 10/27/16 Urine Culture - Final, Complete 10/27/16 Urine Culture Result 1 (JANEL) - Final, Complete Medications Current Medications Pantoprazole Sodium 40 mg 40 mg DAILYAC IVP Last administered on 10/30/16 08:32 ; Start 10/26/16 at 17:00; Stop 10/30/16 at 11:57; Status DC Dobutamine HCl/ Dextrose 250 ml @ 0 mls/hr CONT PRN IV SEE I/O RECORD Last administered on 10/29/16 03:02; Start 10/26/16 at 17:00; Stop 10/30/16 at 10:57 ; Status DC Furosemide (Lasix) 60 mg 1X ONCE IVP Last administered on 10/27/16 08:15; Start 10/27/16 at 08:30; Stop 10/27/16 at 08:31; Status DC Sodium Bicarbonate 50 meq Q2HR IV Last administered on 10/27/16 12:38; Start 10/27/16 at 10:00; Stop 10/27/16 at 12:01; Status DC Albuterol/ Ipratropium (Duoneb) 3 ml RTQID NEB Last administered on 10/31/16 15 :27; Start 10/27/16 at 12:00 Heparin Sodium (Porcine) (Heparin Sodium) 10,000 unit STK-MED ONCE .ROUTE ; Start 10/27/16 at 10:01; Stop 10/27/16 at 10:02; Status DC Lidocaine/Sodium Bicarbonate 20 ml 20 ml STK-MED ONCE IJ ; Start 10/27/16 at 10: 01; Stop 10/27/16 at 10:02; Status DC Heparin Sodium/ Sodium Chloride 500 ml @ As Directed STK-MED ONCE .ROUTE ; Start 10/27/16 at 10:01; Stop 10/27/16 at 10:02; Status DC Lidocaine/Sodium Bicarbonate (Buffered Lidocaine 1%) 3 ml 1X ONCE IJ Last administered on 10/27/16 12:16; Start 10/27/16 at 10:15; Stop 10/27/16 at 10:16 ; Status DC Heparin Sodium/ Sodium Chloride 60 unit 1X ONCE IV Last administered on 12:14; Start 10/27/16 at 10:15; Stop 10/27/16 at 10:16; Status DC Heparin Sodium (Porcine) (Heparin Sodium) 2,500 unit 1X ONCE INT CAT Last administered on 10/27/16 12:16; Start 10/27/16 at 10:15; Stop 10/27/16 at 10:16 ; Status DC Aspirin (Krystian Aspirin) 325 mg DAILY PO Last administered on 10/31/16 08:38; Start 10/27/16 at 12:00 Vitamin D (Vitamin D3) 1,000 unit DAILY PO Last administered on 10/31/16 08:37 ; Start 10/27/16 at 12:00 Diltiazem HCl (Cardizem Cd) 300 mg DAILY PO Last administered on 10/30/16 08:23 ; Start 10/27/16 at 12:00 Furosemide (Lasix) 40 mg [id number] PO Last administered on 10/28/16 17:13; Start 10/27/16 at 12:00; Stop 10/29/16 at 07:12; Status DC Insulin Aspart (Novolog) 11 units TIDWMEALS SQ Last administered on 10/31/16 13 :09; Start 10/27/16 at 12:00 Levothyroxine Sodium (Synthroid) 125 mcg DAILY07 PO Last administered on 05:27; Start 10/27/16 at 12:00 Lisinopril (Prinivil) 40 mg DAILY PO Last administered on 10/27/16 13:22; Start 10/27/16 at 12:00 Methocarbamol (Robaxin) 500 mg PRN TID PRN PO MUSCLE SPASMS Last administered on 10/30/16 01:25; Start 10/27/16 at 11:15 Tamsulosin HCl (Flomax) 0.4 mg QHS PO Last administered on 10/30/16 20:23; Start 10/27/16 at 21:00 Albuterol Sulfate (Ventolin Neb Soln) 2.5 mg PRN Q4HRS PRN NEB SHORTNESS OF BREATH Last administered on 10/30/16 01:38; Start 10/27/16 at 11:30 Brimonidine Tartrate (Alphagan) 1 drop BID OU Last administered on 10/31/16 08: 38; Start 10/27/16 at 12:00 Artificial Tears (Artificial Tears) 1 drop PRN Q15MIN PRN OU DRY EYE; Start at 11:30 Ferrous Sulfate (Feosol) 325 mg BIDWMEALS PO Last administered on 10/31/16 08: 31; Start 10/27/16 at 12:00 Gabapentin (Neurontin) 300 mg BID PO Last administered on 10/31/16 08:40; Start 10/27/16 at 12:00 Non-Formulary Medication 1 inh QID IH ; Start 10/27/16 at 13:00; Status UNV Non-Formulary Medication 1 each TID TP ; Start 10/27/16 at 14:00; Status UNV Non-Formulary Medication 1 tab BID PO ; Start 10/27/16 at 21:00; Status UNV Potassium Chloride (Klor-Con) 10 meq [id number] PO Last administered on 08:31; Start 10/28/16 at 08:00 Atorvastatin Calcium (Lipitor) 20 mg QHS PO Last administered on 10/30/16 20:23 ; Start 10/27/16 at 21:00 Linagliptin (Tradjenta) 5 mg DAILY PO Last administered on 10/31/16 08:38; Start 10/27/16 at 12:00 Furosemide (Lasix) 60 mg 1X ONCE IVP ; Start 10/28/16 at 08:00; Stop 10/28/16 at 08:01; Status DC Sodium Bicarbonate 50 meq 50 meq Q2HR IV Last administered on 10/29/16 10:14; Start 10/29/16 at 08:00; Stop 10/29/16 at 10:01; Status DC Sodium Bicarbonate 150 meq/Sterile Water 1,150 ml @ 80 mls/hr [id number] PRN IV . Last administered on 10/29/16 16:41; Start 10/29/16 at 07:45; Stop 10/30/16 at 12:28; Status DC Sodium Chloride (Hypertonic Saline) 500 ml @ 30 mls/hr CONT PRN PRN IV see comments; Start 10/29/16 at 07:45; Stop 10/30/16 at 12:28; Status DC Acetaminophen (Tylenol) 650 mg PRN Q6HRS PRN PO PAIN Last administered on 16:52; Start 10/29/16 at 11:15 Nystatin (Nystop) 1 summer TID PRN PRN TP REDNESS; Start 10/29/16 at 11:15 Multi-Ingredient Ointment 1 summer 1 summer PRN QID PRN TP MUSCLE PAIN Last administered on 10/30/16 16:52; Start 10/29/16 at 11:15 Magnesium Sulfate/ Dextrose 50 ml @ 25 mls/hr PRN DAILY PRN IV for Mag < 1.7 on am labs; Start 10/30/16 at 09:45 Dobutamine HCl/ Dextrose 250 ml @ 0 mls/hr CONT PRN IV SEE I/O RECORD; Start at 11:00 Pantoprazole Sodium 40 mg 40 mg DAILYAC PO Last administered on 10/31/16 08:31 ; Start 10/31/16 at 07:30 Iron Sucrose 200 mg/Sodium Chloride 110 ml @ 55 mls/hr 3X/WEEK IV ; Start at 09:00; Stop 11/10/16 at 10:59 Sodium Chloride (Hypertonic Saline) 500 ml @ 30 mls/hr CONT PRN PRN IV see comments Last administered on 10/31/16 09:22; Start 10/31/16 at 09:00 Active Scripts Active Reported Tamsulosin Hcl 0.4 Mg Cap.er.24h 0.4 Mg PO QHS Onglyza (Saxagliptin Hcl) 5 Mg Tablet 1 Tab PO DAILY Crestor (Rosuvastatin Calcium) 10 Mg Tablet 0.5 Tab PO DAILY Potassium Chloride 20 Meq Tablet.er 10 Meq PO DAILY Omeprazole 20 Mg Tablet.dr 1 Tab PO BID Nitrostat (Nitroglycerin) 0.3 Mg Tab.subl 0.3 Mg SL PRN Q5MIN PRN Methocarbamol 500 Mg Tablet 500 Mg PO PRN TID PRN Bengay Ultra Strength (Menthol) 1 Each Adh..patch 1 Each TP TID Lisinopril 40 Mg Tablet 1 Tab PO DAILY Levothyroxine Sodium 125 Mcg Tablet 1 Tab PO DAILY Novolog Flexpen (Insulin Aspart) 100 Unit/1 Ml Insuln.pen 11 Unit SQ TIDWMEALS Gabapentin 300 Mg Capsule 300 Mg PO TID Furosemide 40 Mg Tablet 40 Mg PO BID Ferrous Sulfate 324 Mg Tablet.dr 324 Mg PO BID Cardizem Cd (Diltiazem Hcl) 300 Mg Cap.er.24h 300 Mg PO DAILY Vitamin D3 (Cholecalciferol (Vitamin D3)) 1,000 Unit Tablet 1 Tab PO DAILY Refresh Optive Advanced Drops (Carboxymethyl/Glycerin/Poly80) 10 Ml Drops 1 Drop OP PRN QID PRN Alphagan P (Brimonidine Tartrate) 5 Ml Drops 1 Drop EACHEYE BID Aspirin 325 Mg Tablet 1 Tab PO DAILY Albuterol Sulfate Conc Neb Soln (Albuterol Sulfate) 2.5 Mg/0.5 Ml Vial.neb 1 Vial NEB Q4HRS Combivent Respimat Inhal (Ipratropium/Albuterol Sulfate) 4 Gm Aer.w.adap 1 Inh IH QID Vitals/I & O Vital Sign - Last 24 Hours 10/30/16 10/30/16 10/30/16 10/30/16 18:00 19:00 19:47 19:49 Temp 98.0 98.2 98.0 98.2 Pulse 85 71 Resp 16 20 B/P 99/40 90/43 Pulse Ox 91 93 93 O2 Delivery Nasal Cannula Nasal Cannula Nasal Cannula O2 Flow Rate 5.0 5.0 4.0 5.0 10/30/16 10/30/16 10/30/16 10/30/16 20:03 21:11 22:13 22:57 Pulse 76 71 70 Resp 18 20 18 B/P 101/52 112/49 112/52 Pulse Ox 94 96 93 94 O2 Delivery BiPAP/CPAP BiPAP/CPAP BiPAP/CPAP BiPAP/CPAP 10/30/16 10/31/16 10/31/16 10/31/16 23:09 00:03 00:04 01:00 Temp 98.7 98.7 Pulse 71 71 Resp 18 20 B/P 114/79 114/56 Pulse Ox 96 93 93 O2 Delivery BiPAP/CPAP BiPAP/CPAP Bi-pap BiPAP/CPAP O2 Flow Rate 10/31/16 10/31/16 10/31/16 10/31/16 01:00 02:00 03:00 03:40 Temp 98.7 98.7 Pulse 76 71 76 Resp 20 18 18 B/P 123/59 119/56 107/55 Pulse Ox 94 91 90 92 O2 Delivery BiPAP/CPAP Nasal Cannula Nasal Cannula BiPAP/CPAP O2 Flow Rate 4.0 4.0 10/31/16 10/31/16 10/31/16 10/31/16 04:00 04:00 04:55 05:10 Pulse 92 71 Resp 18 18 B/P 112/57 106/55 Pulse Ox 94 94 95 O2 Delivery BiPAP/CPAP Bi-pap BiPAP/CPAP BiPAP/CPAP 10/31/16 10/31/16 10/31/16 10/31/16 06:00 07:16 08:00 08:00 Temp 98.7 98.7 98.7 98.7 Pulse 71 71 76 Resp 20 16 16 B/P 104/54 100/53 95/53 Pulse Ox 94 94 94 O2 Delivery BiPAP/CPAP Nasal Cannula Bi-pap O2 Flow Rate 4.0 5.0 10/31/16 10/31/16 10/31/16 10/31/16 08:04 09:07 10:15 10:56 Temp 97.9 97.9 97.9 97.9 Pulse 75 75 Resp 18 18 B/P 98/75 95/54 Pulse Ox 93 93 93 93 O2 Delivery Nasal Cannula Nasal Cannula O2 Flow Rate 5.0 5.0 5.0 5.0 10/31/16 10/31/16 10/31/16 10/31/16 11:18 12:00 12:00 13:19 Temp 97.9 97.9 97.9 97.9 Pulse 76 76 Resp 18 B/P 78/38 89/53 Pulse Ox 93 93 O2 Delivery BiPAP/CPAP Bi-pap O2 Flow Rate 5.0 5.0 5.0 10/31/16 10/31/16 10/31/16 10/31/16 14:30 15:28 16:05 16:05 Temp 97.9 97.9 97.9 97.9 Pulse 71 72 Resp 16 B/P 114/59 117/63 Pulse Ox 93 91 91 O2 Delivery Nasal Cannula Nasal Cannula Nasal Cannula Bi-pap O2 Flow Rate 5.0 5.0 5.0 10/31/16 10/31/16 16:12 17:20 Temp 97.9 97.9 Pulse 72 Resp 17 B/P 118/58 Pulse Ox 91 O2 Delivery Nasal Cannula O2 Flow Rate 5.0 5.0 Intake and Output 10/30/16 10/30/16 10/31/16 15:00 23:00 07:00 Intake Total 447 ml 250 ml 893 ml Output Total 725 ml 1050 ml 1100 ml Balance -278 ml -800 ml -207 ml WENDIE ANGEL MD October 31, 2016 17:35
[2016-10-31] MEDS: TAMSULOSIN 0.4 MG CAP.ER.24H. PO SCH (20:40)
[2016-10-31] MEDS: ATORVASTATIN CALCIUM 20 MG TABLET PO SCH (20:40)
[2016-10-31] MEDS: HYDROcodone/APAP 5/325MG 1 TAB TABLET PO PRN (20:41)
[2016-11-01] VITALS (28 sets, daily range): BP systolic 76–116; BP diastolic 43–60
[2016-11-01] MEDS: SODIUM CHLORIDE 3 % 500 ML IV PRN (03:29)
[2016-11-01 04:46] LABS: BASO % 0 % (0-3); EOS % 0 % (0-3); HEMATOCRIT 27.2 % (39.0-53.0); HEMOGLOBIN 8.8 g/dL (13.0-17.5); LYMPH # 1.3 x10^3/uL (1.0-4.8); LYMPH % 12 % (24-48); MEAN CORPUSCULAR HEMOGLOBIN 26 pg (25-35); MEAN CORPUSCULAR HGB CONC 32 g/dL (31-37); MEAN CORPUSCULAR VOLUME 79 fL (79-100); MONO % 6 % (0-9); NEUT % 81 % (31-73); PLATELET COUNT 183 x10^3/uL (140-400); RED BLOOD COUNT 3.43 x10^6/uL (4.30-5.70); RED CELL DISTRIBUTION WIDTH 19.1 % (11.5-14.5); WHITE BLOOD COUNT 10.3 x10^3/uL (4.0-11.0)
[2016-11-01 05:08] LABS: ALBUMIN 2.4 g/dL (3.4-5.0); CALCIUM 7.7 mg/dL (8.5-10.1); CREATININE 1.3 mg/dL (0.7-1.3); GFR 54.3; POTASSIUM 4.4 mmol/L (3.5-5.1)
[2016-11-01] MEDS: INSULIN ASPART 300 UNITS/3 ML INSULN.PEN SQ SCH ×3 (08:00→17:00)
[2016-11-01] MEDS: POTASSIUM CHLORIDE 10 MEQ TABLET.ER. PO SCH (08:00)
[2016-11-01] MEDS: IPRATRPIUM/ALBUTEROL 0.5/2.5MG 3 ML NEBU. NEB SCH ×4 (08:17→20:06)
[2016-11-01] MEDS: ASPIRIN 325 MG TABLET PO SCH (08:25)
[2016-11-01] MEDS: LEVOTHYROXINE 125 MCG TABLET PO SCH (08:26)
[2016-11-01] MEDS: CHOLECALCIFEROL (VITAMIN D3) 1,000 UNIT TABLET PO SCH (08:26)
[2016-11-01] MEDS: FERROUS SULFATE 325 MG TABLET. PO SCH ×2 (08:26→18:04)
[2016-11-01] MEDS: PANTOPRAZOLE 40 MG TABLET.DR. PO SCH (08:26)
[2016-11-01] MEDS: LINAGLIPTIN 5 MG TABLET PO SCH (08:26)
[2016-11-01] MEDS: LISINOPRIL 40 MG TABLET. PO SCH (08:27)
[2016-11-01] MEDS: BRIMONIDINE 0.2% OPHTH SOLUTION 5ML BOTTLE. OU SCH ×2 (08:27→21:16)
[2016-11-01] MEDS: GABAPENTIN 300 MG CAPSULE. PO SCH ×2 (08:27→21:15)
--- NOTE | 2016-11-01 08:46 | PDOC ---
G I PROGRESS NOTE Subjective No GI complaints. NPO for testing. Physical Exam Lungs with coarse sounds bilaterally. RRR Abdomen soft, not tender nor distended. Review of Relevant I have reviewed the following items dorian (where applicable) has been applied. Labs Laboratory Tests Test 10/30/16 12:35 10/30/16 12:40 10/30/16 14:00 10/30/16 14:10 Urine Collection Type U cath Urine Color Yellow Urine Clarity Cloudy Urine pH 5.5 Urine Specific Enola 1.015 Urine Protein Negativemg/dL (NEG-TRACE) 28.8mg/dL (Not Estab.) Urine Glucose (UA) Negativemg/dL (NEG) Urine Ketones (Stick) Negativemg/dL (NEG) Urine Blood Large (NEG) Urine Nitrite Negative (NEG) Urine Bilirubin Negative (NEG) Urine Urobilinogen Dipstick 1.0mg/dL (0.2 mg/dL) Urine Leukocyte Esterase Negative (NEG) Urine RBC 20-40/HPF (0-2) Urine WBC 1-4/HPF (0-4) Urine Squamous Epithelial Cells Few/LPF Urine Amorphous Sediment Present/HPF Urine Bacteria 0/HPF (0-FEW) Urine Hyaline Casts Few/HPF Urine Granular Casts Few/HPF Urine Mucus Slight/LPF Urine Creatinine 87.6mg/dL (Not Estab.) Urine Protein/Creatinine Ratio 329mg/g creat (0-200) Glucose (Fingerstick) 148mg/dL (70-99) 153mg/dL (70-99) Test 10/30/16 16:57 10/30/16 20:21 10/31/16 04:40 10/31/16 04:45 Glucose (Fingerstick) 149mg/dL (70-99) 173mg/dL (70-99) Lactic Acid Level 1.3mmol/L (0.4-2.0) Magnesium Level 2.1mg/dL (1.8-2.4) White Blood Count 9.7x10^3/uL (4.0-11.0) Red Blood Count 3.54x10^6/uL (4.30-5.70) Hemoglobin 9.1g/dL (13.0-17.5) Hematocrit 27.7% (39.0-53.0) Mean Corpuscular Volume 78fL (79-100) Mean Corpuscular Hemoglobin 26pg (25-35) Mean Corpuscular Hemoglobin Concent 33g/dL (31-37) Red Cell Distribution Width 18.8% (11.5-14.5) Platelet Count 156x10^3/uL (140-400) Neutrophils (%) (Auto) 77% (31-73) Lymphocytes (%) (Auto) 16% (24-48) Monocytes (%) (Auto) 7% (0-9) Eosinophils (%) (Auto) 0% (0-3) Basophils (%) (Auto) 0% (0-3) Neutrophils # (Auto) 7.4x10^3uL (1.8-7.7) Lymphocytes # (Auto) 1.6x10^3/uL (1.0-4.8) Monocytes # (Auto) 0.6x10^3/uL (0.0-1.1) Eosinophils # (Auto) 0.0x10^3/uL (0.0-0.7) Basophils # (Auto) 0.0x10^3/uL (0.0-0.2) Sodium Level 124mmol/L (136-145) Potassium Level 4.2mmol/L (3.5-5.1) Chloride Level 90mmol/L (98-107) Carbon Dioxide Level 27mmol/L (21-32) Anion Gap 7 (6-14) Blood Urea Nitrogen 53mg/dL (8-26) Creatinine 1.5mg/dL (0.7-1.3) Estimated GFR (Cockcroft-Gault) 46.0 Glucose Level 135mg/dL (70-99) Uric Acid 9.0mg/dL (3.5-7.2) Calcium Level 7.7mg/dL (8.5-10.1) Phosphorus Level 3.3mg/dL (2.6-4.7) Albumin 2.6g/dL (3.4-5.0) Test 10/31/16 08:25 10/31/16 11:55 10/31/16 13:02 10/31/16 16:00 Glucose (Fingerstick) 143mg/dL (70-99) 152mg/dL (70-99) Sodium Level 124mmol/L (136-145) 126mmol/L (136-145) Test 10/31/16 17:34 10/31/16 19:53 10/31/16 20:44 11/01/16 00:15 Glucose (Fingerstick) 160mg/dL (70-99) 123mg/dL (70-99) Sodium Level 127mmol/L (136-145) 128mmol/L (136-145) Test 11/01/16 04:20 11/01/16 08:05 White Blood Count 10.3x10^3/uL (4.0-11.0) Red Blood Count 3.43x10^6/uL (4.30-5.70) Hemoglobin 8.8g/dL (13.0-17.5) Hematocrit 27.2% (39.0-53.0) Mean Corpuscular Volume 79fL (79-100) Mean Corpuscular Hemoglobin 26pg (25-35) Mean Corpuscular Hemoglobin Concent 32g/dL (31-37) Red Cell Distribution Width 19.1% (11.5-14.5) Platelet Count 183x10^3/uL (140-400) Neutrophils (%) (Auto) 81% (31-73) Lymphocytes (%) (Auto) 12% (24-48) Monocytes (%) (Auto) 6% (0-9) Eosinophils (%) (Auto) 0% (0-3) Basophils (%) (Auto) 0% (0-3) Neutrophils # (Auto) 8.3x10^3uL (1.8-7.7) Lymphocytes # (Auto) 1.3x10^3/uL (1.0-4.8) Monocytes # (Auto) 0.6x10^3/uL (0.0-1.1) Eosinophils # (Auto) 0.0x10^3/uL (0.0-0.7) Basophils # (Auto) 0.0x10^3/uL (0.0-0.2) Sodium Level 129mmol/L (136-145) Potassium Level 4.4mmol/L (3.5-5.1) Chloride Level 96mmol/L (98-107) Carbon Dioxide Level 28mmol/L (21-32) Anion Gap 5 (6-14) Blood Urea Nitrogen 36mg/dL (8-26) Creatinine 1.3mg/dL (0.7-1.3) Estimated GFR (Cockcroft-Gault) 54.3 Glucose Level 135mg/dL (70-99) Lactic Acid Level 1.1mmol/L (0.4-2.0) Calcium Level 7.7mg/dL (8.5-10.1) Phosphorus Level 3.0mg/dL (2.6-4.7) Magnesium Level 2.0mg/dL (1.8-2.4) Albumin 2.4g/dL (3.4-5.0) Glucose (Fingerstick) 137mg/dL (70-99) Laboratory Tests Test 10/31/16 11:55 10/31/16 13:02 10/31/16 16:00 10/31/16 17:34 Sodium Level 124mmol/L (136-145) 126mmol/L (136-145) Glucose (Fingerstick) 152mg/dL (70-99) 160mg/dL (70-99) Test 10/31/16 19:53 10/31/16 20:44 11/01/16 00:15 11/01/16 04:20 Sodium Level 127mmol/L (136-145) 128mmol/L (136-145) 129mmol/L (136-145) Glucose (Fingerstick) 123mg/dL (70-99) White Blood Count 10.3x10^3/uL (4.0-11.0) Red Blood Count 3.43x10^6/uL (4.30-5.70) Hemoglobin 8.8g/dL (13.0-17.5) Hematocrit 27.2% (39.0-53.0) Mean Corpuscular Volume 79fL (79-100) Mean Corpuscular Hemoglobin 26pg (25-35) Mean Corpuscular Hemoglobin Concent 32g/dL (31-37) Red Cell Distribution Width 19.1% (11.5-14.5) Platelet Count 183x10^3/uL (140-400) Neutrophils (%) (Auto) 81% (31-73) Lymphocytes (%) (Auto) 12% (24-48) Monocytes (%) (Auto) 6% (0-9) Eosinophils (%) (Auto) 0% (0-3) Basophils (%) (Auto) 0% (0-3) Neutrophils # (Auto) 8.3x10^3uL (1.8-7.7) Lymphocytes # (Auto) 1.3x10^3/uL (1.0-4.8) Monocytes # (Auto) 0.6x10^3/uL (0.0-1.1) Eosinophils # (Auto) 0.0x10^3/uL (0.0-0.7) Basophils # (Auto) 0.0x10^3/uL (0.0-0.2) Potassium Level 4.4mmol/L (3.5-5.1) Chloride Level 96mmol/L (98-107) Carbon Dioxide Level 28mmol/L (21-32) Anion Gap 5 (6-14) Blood Urea Nitrogen 36mg/dL (8-26) Creatinine 1.3mg/dL (0.7-1.3) Estimated GFR (Cockcroft-Gault) 54.3 Glucose Level 135mg/dL (70-99) Lactic Acid Level 1.1mmol/L (0.4-2.0) Calcium Level 7.7mg/dL (8.5-10.1) Phosphorus Level 3.0mg/dL (2.6-4.7) Magnesium Level 2.0mg/dL (1.8-2.4) Albumin 2.4g/dL (3.4-5.0) Test 11/01/16 08:05 Glucose (Fingerstick) 137mg/dL (70-99) Microbiology 10/27/16 Urine Culture - Final, Complete 10/27/16 Urine Culture Result 1 (JANEL) - Final, Complete Hemoglobin stable. Medications Current Medications Pantoprazole Sodium 40 mg 40 mg DAILYAC IVP Last administered on 10/30/16 08:32 ; Start 10/26/16 at 17:00; Stop 10/30/16 at 11:57; Status DC Dobutamine HCl/ Dextrose 250 ml @ 0 mls/hr CONT PRN IV SEE I/O RECORD Last administered on 10/29/16 03:02; Start 10/26/16 at 17:00; Stop 10/30/16 at 10:57 ; Status DC Furosemide (Lasix) 60 mg 1X ONCE IVP Last administered on 10/27/16 08:15; Start 10/27/16 at 08:30; Stop 10/27/16 at 08:31; Status DC Sodium Bicarbonate 50 meq Q2HR IV Last administered on 10/27/16 12:38; Start 10/27/16 at 10:00; Stop 10/27/16 at 12:01; Status DC Albuterol/ Ipratropium (Duoneb) 3 ml RTQID NEB Last administered on 11/01/16 08 :17; Start 10/27/16 at 12:00 Heparin Sodium (Porcine) (Heparin Sodium) 10,000 unit STK-MED ONCE .ROUTE ; Start 10/27/16 at 10:01; Stop 10/27/16 at 10:02; Status DC Lidocaine/Sodium Bicarbonate 20 ml 20 ml STK-MED ONCE IJ ; Start 10/27/16 at 10: 01; Stop 10/27/16 at 10:02; Status DC Heparin Sodium/ Sodium Chloride 500 ml @ As Directed STK-MED ONCE .ROUTE ; Start 10/27/16 at 10:01; Stop 10/27/16 at 10:02; Status DC Lidocaine/Sodium Bicarbonate (Buffered Lidocaine 1%) 3 ml 1X ONCE IJ Last administered on 10/27/16 12:16; Start 10/27/16 at 10:15; Stop 10/27/16 at 10:16 ; Status DC Heparin Sodium/ Sodium Chloride 60 unit 1X ONCE IV Last administered on 12:14; Start 10/27/16 at 10:15; Stop 10/27/16 at 10:16; Status DC Heparin Sodium (Porcine) (Heparin Sodium) 2,500 unit 1X ONCE INT CAT Last administered on 10/27/16 12:16; Start 10/27/16 at 10:15; Stop 10/27/16 at 10:16 ; Status DC Aspirin (Krystian Aspirin) 325 mg DAILY PO Last administered on 11/01/16 08:25; Start 10/27/16 at 12:00 Vitamin D (Vitamin D3) 1,000 unit DAILY PO Last administered on 11/01/16 08:26 ; Start 10/27/16 at 12:00 Diltiazem HCl (Cardizem Cd) 300 mg DAILY PO Last administered on 11/01/16 08:26 ; Start 10/27/16 at 12:00 Furosemide (Lasix) 40 mg [id number] PO Last administered on 10/28/16 17:13; Start 10/27/16 at 12:00; Stop 10/29/16 at 07:12; Status DC Insulin Aspart (Novolog) 11 units TIDWMEALS SQ Last administered on 10/31/16 17 :57; Start 10/27/16 at 12:00 Levothyroxine Sodium (Synthroid) 125 mcg DAILY07 PO Last administered on 08:26; Start 10/27/16 at 12:00 Lisinopril (Prinivil) 40 mg DAILY PO Last administered on 10/31/16 18:02; Start 10/27/16 at 12:00 Methocarbamol (Robaxin) 500 mg PRN TID PRN PO MUSCLE SPASMS Last administered on 10/30/16 01:25; Start 10/27/16 at 11:15 Tamsulosin HCl (Flomax) 0.4 mg QHS PO Last administered on 10/31/16 20:40; Start 10/27/16 at 21:00 Albuterol Sulfate (Ventolin Neb Soln) 2.5 mg PRN Q4HRS PRN NEB SHORTNESS OF BREATH Last administered on 10/30/16 01:38; Start 10/27/16 at 11:30 Brimonidine Tartrate (Alphagan) 1 drop BID OU Last administered on 11/01/16 08: 27; Start 10/27/16 at 12:00 Artificial Tears (Artificial Tears) 1 drop PRN Q15MIN PRN OU DRY EYE; Start at 11:30 Ferrous Sulfate (Feosol) 325 mg BIDWMEALS PO Last administered on 11/01/16 08: 26; Start 10/27/16 at 12:00 Gabapentin (Neurontin) 300 mg BID PO Last administered on 11/01/16 08:27; Start 10/27/16 at 12:00 Non-Formulary Medication 1 inh QID IH ; Start 10/27/16 at 13:00; Status UNV Non-Formulary Medication 1 each TID TP ; Start 10/27/16 at 14:00; Status UNV Non-Formulary Medication 1 tab BID PO ; Start 10/27/16 at 21:00; Status UNV Potassium Chloride (Klor-Con) 10 meq [id number] PO Last administered on 08:31; Start 10/28/16 at 08:00 Atorvastatin Calcium (Lipitor) 20 mg QHS PO Last administered on 10/31/16 20:40 ; Start 10/27/16 at 21:00 Linagliptin (Tradjenta) 5 mg DAILY PO Last administered on 11/01/16 08:26; Start 10/27/16 at 12:00 Furosemide (Lasix) 60 mg 1X ONCE IVP ; Start 10/28/16 at 08:00; Stop 10/28/16 at 08:01; Status DC Sodium Bicarbonate 50 meq 50 meq Q2HR IV Last administered on 10/29/16 10:14; Start 10/29/16 at 08:00; Stop 10/29/16 at 10:01; Status DC Sodium Bicarbonate 150 meq/Sterile Water 1,150 ml @ 80 mls/hr [id number] PRN IV . Last administered on 10/29/16 16:41; Start 10/29/16 at 07:45; Stop 10/30/16 at 12:28; Status DC Sodium Chloride (Hypertonic Saline) 500 ml @ 30 mls/hr CONT PRN PRN IV see comments; Start 10/29/16 at 07:45; Stop 10/30/16 at 12:28; Status DC Acetaminophen (Tylenol) 650 mg PRN Q6HRS PRN PO PAIN Last administered on 16:52; Start 10/29/16 at 11:15 Nystatin (Nystop) 1 summer TID PRN PRN TP REDNESS; Start 10/29/16 at 11:15 Multi-Ingredient Ointment 1 summer 1 summer PRN QID PRN TP MUSCLE PAIN Last administered on 10/30/16 16:52; Start 10/29/16 at 11:15 Magnesium Sulfate/ Dextrose 50 ml @ 25 mls/hr PRN DAILY PRN IV for Mag < 1.7 on am labs; Start 10/30/16 at 09:45 Dobutamine HCl/ Dextrose 250 ml @ 0 mls/hr CONT PRN IV SEE I/O RECORD; Start at 11:00 Pantoprazole Sodium 40 mg 40 mg DAILYAC PO Last administered on 11/01/16 08:26 ; Start 10/31/16 at 07:30 Iron Sucrose 200 mg/Sodium Chloride 110 ml @ 55 mls/hr 3X/WEEK IV ; Start at 09:00; Stop 11/10/16 at 10:59 Sodium Chloride (Hypertonic Saline) 500 ml @ 30 mls/hr CONT PRN PRN IV see comments Last administered on 11/01/16 03:29; Start 10/31/16 at 09:00 Acetaminophen/ Hydrocodone Bitart (Lortab 5/325) 1 tab PRN Q4HRS PRN PO PAIN Last administered on 10/31/16 20:41; Start 10/31/16 at 20:30 Active Scripts Active Reported Tamsulosin Hcl 0.4 Mg Cap.er.24h 0.4 Mg PO QHS Onglyza (Saxagliptin Hcl) 5 Mg Tablet 1 Tab PO DAILY Crestor (Rosuvastatin Calcium) 10 Mg Tablet 0.5 Tab PO DAILY Potassium Chloride 20 Meq Tablet.er 10 Meq PO DAILY Omeprazole 20 Mg Tablet.dr 1 Tab PO BID Nitrostat (Nitroglycerin) 0.3 Mg Tab.subl 0.3 Mg SL PRN Q5MIN PRN Methocarbamol 500 Mg Tablet 500 Mg PO PRN TID PRN Bengay Ultra Strength (Menthol) 1 Each Adh..patch 1 Each TP TID Lisinopril 40 Mg Tablet 1 Tab PO DAILY Levothyroxine Sodium 125 Mcg Tablet 1 Tab PO DAILY Novolog Flexpen (Insulin Aspart) 100 Unit/1 Ml Insuln.pen 11 Unit SQ TIDWMEALS Gabapentin 300 Mg Capsule 300 Mg PO TID Furosemide 40 Mg Tablet 40 Mg PO BID Ferrous Sulfate 324 Mg Tablet.dr 324 Mg PO BID Cardizem Cd (Diltiazem Hcl) 300 Mg Cap.er.24h 300 Mg PO DAILY Vitamin D3 (Cholecalciferol (Vitamin D3)) 1,000 Unit Tablet 1 Tab PO DAILY Refresh Optive Advanced Drops (Carboxymethyl/Glycerin/Poly80) 10 Ml Drops 1 Drop OP PRN QID PRN Alphagan P (Brimonidine Tartrate) 5 Ml Drops 1 Drop EACHEYE BID Aspirin 325 Mg Tablet 1 Tab PO DAILY Albuterol Sulfate Conc Neb Soln (Albuterol Sulfate) 2.5 Mg/0.5 Ml Vial.neb 1 Vial NEB Q4HRS Combivent Respimat Inhal (Ipratropium/Albuterol Sulfate) 4 Gm Aer.w.adap 1 Inh IH QID Vitals/I & O Vital Sign - Last 24 Hours 10/31/16 10/31/16 10/31/16 10/31/16 09:07 10:15 10:56 11:18 Temp 97.9 97.9 97.9 97.9 97.9 97.9 Pulse 75 75 76 Resp 18 18 18 B/P 98/75 95/54 78/38 Pulse Ox 93 93 93 93 O2 Delivery Nasal Cannula BiPAP/CPAP O2 Flow Rate 5.0 5.0 5.0 5.0 10/31/16 10/31/16 10/31/16 10/31/16 12:00 12:00 13:19 14:30 Temp 97.9 97.9 97.9 97.9 Pulse 76 71 Resp 16 B/P 89/53 114/59 Pulse Ox 93 93 O2 Delivery Bi-pap Nasal Cannula O2 Flow Rate 5.0 5.0 5.0 10/31/16 10/31/16 10/31/16 10/31/16 15:28 16:05 16:05 16:12 Temp 97.9 97.9 Pulse 72 B/P 117/63 Pulse Ox 91 91 O2 Delivery Nasal Cannula Nasal Cannula Bi-pap O2 Flow Rate 5.0 5.0 5.0 10/31/16 10/31/16 10/31/16 10/31/16 17:20 18:00 18:01 18:02 Temp 97.9 97.9 97.9 97.9 Pulse 72 72 71 72 Resp B/P 118/58 108/58 118/58 118/58 Pulse Ox 91 91 O2 Delivery Nasal Cannula Nasal Cannula O2 Flow Rate 5.0 5.0 10/31/16 10/31/16 10/31/16 10/31/16 19:00 19:44 19:57 20:03 Temp 98.7 98.7 Pulse 71 75 Resp 18 20 B/P 101/43 106/48 Pulse Ox 92 94 92 O2 Delivery Nasal Cannula Nasal Cannula Nasal Cannula Nasal Cannula O2 Flow Rate 5.0 5.0 5.0 5.0 10/31/16 10/31/16 10/31/16 10/31/16 20:41 21:07 21:34 21:41 Pulse 76 Resp 20 18 B/P 96/52 Pulse Ox 92 95 96 95 O2 Delivery Nasal Cannula BiPAP/CPAP BiPAP/CPAP BiPAP/CPAP O2 Flow Rate 5.0 10/31/16 10/31/16 10/31/16 11/01/16 22:03 23:09 23:41 00:03 Temp 97.9 97.9 Pulse 71 71 71 Resp 18 B/P 81/46 92/44 92/52 Pulse Ox 96 92 94 95 O2 Delivery BiPAP/CPAP BiPAP/CPAP BiPAP/CPAP BiPAP/CPAP 11/01/16 11/01/16 11/01/16 11/01/16 00:04 01:03 01:20 02:00 Pulse 71 72 Resp 20 B/P 84/49 80/49 Pulse Ox 93 94 93 O2 Delivery Nasal Cannula BiPAP/CPAP BiPAP/CPAP BiPAP/CPAP O2 Flow Rate 5.0 11/01/16 11/01/16 11/01/16 11/01/16 03:11 04:00 04:19 05:02 Temp 98.7 98.7 Pulse 76 67 71 Resp 20 B/P 88/57 113/55 96/51 Pulse Ox 93 92 92 O2 Delivery Nasal Cannula Nasal Cannula Nasal Cannula Nasal Cannula O2 Flow Rate 4.0 4.0 4.0 4.0 11/01/16 11/01/16 11/01/16 11/01/16 06:04 07:00 08:00 08:00 Temp 98.9 98.9 Pulse 72 72 71 Resp 28 B/P 108/50 116/54 112/48 Pulse Ox 92 95 93 O2 Delivery Nasal Cannula BiPAP/CPAP Nasal Cannula Nasal Cannula O2 Flow Rate 4.0 4.0 4.0 11/01/16 11/01/16 08:18 08:26 Pulse 76 B/P 112/48 Pulse Ox 91 O2 Delivery Nasal Cannula O2 Flow Rate 5.0 Intake and Output 10/31/16 10/31/16 11/01/16 14:59 22:59 06:59 Intake Total 550 ml 350 ml 633 ml Output Total 670 ml 400 ml 1100 ml Balance -120 ml -50 ml -467 ml Problem List Problems Medical Problems: (1) CHF exacerbation Status: Acute Assessment Chronic NEHEMIAH, 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 Ongoing cardiac issues. Plan of Care: Continue current Tx, Mgmt Plan of Care Note Await outcome of testing. NIKKI GREENE MD November 01, 2016 08:46
[2016-11-01] MEDS: IRON SUCROSE COMPLEX 200 MG in IV NORMAL SALINE 100ML 100 ML IV SCH (09:00)
[2016-11-01] MEDS: HYDROcodone/APAP 5/325MG 1 TAB TABLET PO PRN (10:20)
--- NOTE | 2016-11-01 11:14 | PDOC ---
PROGRESS NOTES Chief Complaint Chief Complaint cc:CHF exacerbation GI bleed, anemia malnutrition acute renal failure on CKD 3 , w/ iron deficiency CAD, angina, Hx CABG DM2, Hypertension Hyperlipidemia weakness and debility History of Present Illness History of Present Illness asleep on Bipap, easily aroused and talkative His SpO2% was at 100 daughter was here this AM, discussed with Dr. Cota briefly discussed with Dr. Reyes, 1 u PRBC Vitals Vitals Vital Signs Date Time Temp Pulse Resp B/P Pulse Ox O2 Delivery O2 Flow Rate FiO2 11/01/16 10:20 91 Nasal Cannula 4.0 11/01/16 10:00 71 25 81/47 11/01/16 08:00 98.9 98.9 Physical Exam General: Alert, No acute distress Heart: Regular rate, Normal S1, Normal S2, No murmurs Lungs: Other (few rhonchi) Abdomen: Normal bowel sounds, Soft Extremities: No clubbing, Normal pulses Skin: No rashes, No breakdown Labs LABS Laboratory Tests Test 10/31/16 11:55 10/31/16 13:02 10/31/16 16:00 10/31/16 17:34 Sodium Level 124mmol/L (136-145) 126mmol/L (136-145) Glucose (Fingerstick) 152mg/dL (70-99) 160mg/dL (70-99) Test 10/31/16 19:53 10/31/16 20:44 11/01/16 00:15 11/01/16 04:20 Sodium Level 127mmol/L (136-145) 128mmol/L (136-145) 129mmol/L (136-145) Glucose (Fingerstick) 123mg/dL (70-99) White Blood Count 10.3x10^3/uL (4.0-11.0) Red Blood Count 3.43x10^6/uL (4.30-5.70) Hemoglobin 8.8g/dL (13.0-17.5) Hematocrit 27.2% (39.0-53.0) Mean Corpuscular Volume 79fL (79-100) Mean Corpuscular Hemoglobin 26pg (25-35) Mean Corpuscular Hemoglobin Concent 32g/dL (31-37) Red Cell Distribution Width 19.1% (11.5-14.5) Platelet Count 183x10^3/uL (140-400) Neutrophils (%) (Auto) 81% (31-73) Lymphocytes (%) (Auto) 12% (24-48) Monocytes (%) (Auto) 6% (0-9) Eosinophils (%) (Auto) 0% (0-3) Basophils (%) (Auto) 0% (0-3) Neutrophils # (Auto) 8.3x10^3uL (1.8-7.7) Lymphocytes # (Auto) 1.3x10^3/uL (1.0-4.8) Monocytes # (Auto) 0.6x10^3/uL (0.0-1.1) Eosinophils # (Auto) 0.0x10^3/uL (0.0-0.7) Basophils # (Auto) 0.0x10^3/uL (0.0-0.2) Potassium Level 4.4mmol/L (3.5-5.1) Chloride Level 96mmol/L (98-107) Carbon Dioxide Level 28mmol/L (21-32) Anion Gap 5 (6-14) Blood Urea Nitrogen 36mg/dL (8-26) Creatinine 1.3mg/dL (0.7-1.3) Estimated GFR (Cockcroft-Gault) 54.3 Glucose Level 135mg/dL (70-99) Lactic Acid Level 1.1mmol/L (0.4-2.0) Calcium Level 7.7mg/dL (8.5-10.1) Phosphorus Level 3.0mg/dL (2.6-4.7) Magnesium Level 2.0mg/dL (1.8-2.4) Albumin 2.4g/dL (3.4-5.0) Test 11/01/16 08:05 Sodium Level 132mmol/L (136-145) Glucose (Fingerstick) 137mg/dL (70-99) Review of Systems Review of Systems weakness dyspnea Assessment and Plan Assessmemt and Plan Problems Medical Problems: (1) CHF exacerbation Status: Acute Problems: Comment Review of Relevant I have reviewed the following items dorian (where applicable) has been applied. Labs Laboratory Tests Test 10/30/16 12:35 10/30/16 12:40 10/30/16 14:00 10/30/16 14:10 Urine Collection Type U cath Urine Color Yellow Urine Clarity Cloudy Urine pH 5.5 Urine Specific [place] 1.015 Urine Protein Negativemg/dL (NEG-TRACE) 28.8mg/dL (Not Estab.) Urine Glucose (UA) Negativemg/dL (NEG) Urine Ketones (Stick) Negativemg/dL (NEG) Urine Blood Large (NEG) Urine Nitrite Negative (NEG) Urine Bilirubin Negative (NEG) Urine Urobilinogen Dipstick 1.0mg/dL (0.2 mg/dL) Urine Leukocyte Esterase Negative (NEG) Urine RBC 20-40/HPF (0-2) Urine WBC 1-4/HPF (0-4) Urine Squamous Epithelial Cells Few/LPF Urine Amorphous Sediment Present/HPF Urine Bacteria 0/HPF (0-FEW) Urine Hyaline Casts Few/HPF Urine Granular Casts Few/HPF Urine Mucus Slight/LPF Urine Creatinine 87.6mg/dL (Not Estab.) Urine Protein/Creatinine Ratio 329mg/g creat (0-200) Glucose (Fingerstick) 148mg/dL (70-99) 153mg/dL (70-99) Test 10/30/16 16:57 10/30/16 20:21 10/31/16 04:40 10/31/16 04:45 Glucose (Fingerstick) 149mg/dL (70-99) 173mg/dL (70-99) Lactic Acid Level 1.3mmol/L (0.4-2.0) Magnesium Level 2.1mg/dL (1.8-2.4) White Blood Count 9.7x10^3/uL (4.0-11.0) Red Blood Count 3.54x10^6/uL (4.30-5.70) Hemoglobin 9.1g/dL (13.0-17.5) Hematocrit 27.7% (39.0-53.0) Mean Corpuscular Volume 78fL (79-100) Mean Corpuscular Hemoglobin 26pg (25-35) Mean Corpuscular Hemoglobin Concent 33g/dL (31-37) Red Cell Distribution Width 18.8% (11.5-14.5) Platelet Count 156x10^3/uL (140-400) Neutrophils (%) (Auto) 77% (31-73) Lymphocytes (%) (Auto) 16% (24-48) Monocytes (%) (Auto) 7% (0-9) Eosinophils (%) (Auto) 0% (0-3) Basophils (%) (Auto) 0% (0-3) Neutrophils # (Auto) 7.4x10^3uL (1.8-7.7) Lymphocytes # (Auto) 1.6x10^3/uL (1.0-4.8) Monocytes # (Auto) 0.6x10^3/uL (0.0-1.1) Eosinophils # (Auto) 0.0x10^3/uL (0.0-0.7) Basophils # (Auto) 0.0x10^3/uL (0.0-0.2) Sodium Level 124mmol/L (136-145) Potassium Level 4.2mmol/L (3.5-5.1) Chloride Level 90mmol/L (98-107) Carbon Dioxide Level 27mmol/L (21-32) Anion Gap 7 (6-14) Blood Urea Nitrogen 53mg/dL (8-26) Creatinine 1.5mg/dL (0.7-1.3) Estimated GFR (Cockcroft-Gault) 46.0 Glucose Level 135mg/dL (70-99) Uric Acid 9.0mg/dL (3.5-7.2) Calcium Level 7.7mg/dL (8.5-10.1) Phosphorus Level 3.3mg/dL (2.6-4.7) Albumin 2.6g/dL (3.4-5.0) Test 10/31/16 08:25 10/31/16 11:55 10/31/16 13:02 10/31/16 16:00 Glucose (Fingerstick) 143mg/dL (70-99) 152mg/dL (70-99) Sodium Level 124mmol/L (136-145) 126mmol/L (136-145) Test 10/31/16 17:34 10/31/16 19:53 10/31/16 20:44 11/01/16 00:15 Glucose (Fingerstick) 160mg/dL (70-99) 123mg/dL (70-99) Sodium Level 127mmol/L (136-145) 128mmol/L (136-145) Test 11/01/16 04:20 11/01/16 08:05 White Blood Count 10.3x10^3/uL (4.0-11.0) Red Blood Count 3.43x10^6/uL (4.30-5.70) Hemoglobin 8.8g/dL (13.0-17.5) Hematocrit 27.2% (39.0-53.0) Mean Corpuscular Volume 79fL (79-100) Mean Corpuscular Hemoglobin 26pg (25-35) Mean Corpuscular Hemoglobin Concent 32g/dL (31-37) Red Cell Distribution Width 19.1% (11.5-14.5) Platelet Count 183x10^3/uL (140-400) Neutrophils (%) (Auto) 81% (31-73) Lymphocytes (%) (Auto) 12% (24-48) Monocytes (%) (Auto) 6% (0-9) Eosinophils (%) (Auto) 0% (0-3) Basophils (%) (Auto) 0% (0-3) Neutrophils # (Auto) 8.3x10^3uL (1.8-7.7) Lymphocytes # (Auto) 1.3x10^3/uL (1.0-4.8) Monocytes # (Auto) 0.6x10^3/uL (0.0-1.1) Eosinophils # (Auto) 0.0x10^3/uL (0.0-0.7) Basophils # (Auto) 0.0x10^3/uL (0.0-0.2) Sodium Level 129mmol/L (136-145) 132mmol/L (136-145) Potassium Level 4.4mmol/L (3.5-5.1) Chloride Level 96mmol/L (98-107) Carbon Dioxide Level 28mmol/L (21-32) Anion Gap 5 (6-14) Blood Urea Nitrogen 36mg/dL (8-26) Creatinine 1.3mg/dL (0.7-1.3) Estimated GFR (Cockcroft-Gault) 54.3 Glucose Level 135mg/dL (70-99) Lactic Acid Level 1.1mmol/L (0.4-2.0) Calcium Level 7.7mg/dL (8.5-10.1) Phosphorus Level 3.0mg/dL (2.6-4.7) Magnesium Level 2.0mg/dL (1.8-2.4) Albumin 2.4g/dL (3.4-5.0) Glucose (Fingerstick) 137mg/dL (70-99) Laboratory Tests Test 10/31/16 11:55 10/31/16 13:02 10/31/16 16:00 10/31/16 17:34 Sodium Level 124mmol/L (136-145) 126mmol/L (136-145) Glucose (Fingerstick) 152mg/dL (70-99) 160mg/dL (70-99) Test 10/31/16 19:53 10/31/16 20:44 11/01/16 00:15 11/01/16 04:20 Sodium Level 127mmol/L (136-145) 128mmol/L (136-145) 129mmol/L (136-145) Glucose (Fingerstick) 123mg/dL (70-99) White Blood Count 10.3x10^3/uL (4.0-11.0) Red Blood Count 3.43x10^6/uL (4.30-5.70) Hemoglobin 8.8g/dL (13.0-17.5) Hematocrit 27.2% (39.0-53.0) Mean Corpuscular Volume 79fL (79-100) Mean Corpuscular Hemoglobin 26pg (25-35) Mean Corpuscular Hemoglobin Concent 32g/dL (31-37) Red Cell Distribution Width 19.1% (11.5-14.5) Platelet Count 183x10^3/uL (140-400) Neutrophils (%) (Auto) 81% (31-73) Lymphocytes (%) (Auto) 12% (24-48) Monocytes (%) (Auto) 6% (0-9) Eosinophils (%) (Auto) 0% (0-3) Basophils (%) (Auto) 0% (0-3) Neutrophils # (Auto) 8.3x10^3uL (1.8-7.7) Lymphocytes # (Auto) 1.3x10^3/uL (1.0-4.8) Monocytes # (Auto) 0.6x10^3/uL (0.0-1.1) Eosinophils # (Auto) 0.0x10^3/uL (0.0-0.7) Basophils # (Auto) 0.0x10^3/uL (0.0-0.2) Potassium Level 4.4mmol/L (3.5-5.1) Chloride Level 96mmol/L (98-107) Carbon Dioxide Level 28mmol/L (21-32) Anion Gap 5 (6-14) Blood Urea Nitrogen 36mg/dL (8-26) Creatinine 1.3mg/dL (0.7-1.3) Estimated GFR (Cockcroft-Gault) 54.3 Glucose Level 135mg/dL (70-99) Lactic Acid Level 1.1mmol/L (0.4-2.0) Calcium Level 7.7mg/dL (8.5-10.1) Phosphorus Level 3.0mg/dL (2.6-4.7) Magnesium Level 2.0mg/dL (1.8-2.4) Albumin 2.4g/dL (3.4-5.0) Test 11/01/16 08:05 Sodium Level 132mmol/L (136-145) Glucose (Fingerstick) 137mg/dL (70-99) Microbiology 10/27/16 Urine Culture - Final, Complete 10/27/16 Urine Culture Result 1 (JANEL) - Final, Complete Medications Current Medications Pantoprazole Sodium 40 mg 40 mg DAILYAC IVP Last administered on 10/30/16 08:32 ; Start 10/26/16 at 17:00; Stop 10/30/16 at 11:57; Status DC Dobutamine HCl/ Dextrose 250 ml @ 0 mls/hr CONT PRN IV SEE I/O RECORD Last administered on 10/29/16 03:02; Start 10/26/16 at 17:00; Stop 10/30/16 at 10:57 ; Status DC Furosemide (Lasix) 60 mg 1X ONCE IVP Last administered on 10/27/16 08:15; Start 10/27/16 at 08:30; Stop 10/27/16 at 08:31; Status DC Sodium Bicarbonate 50 meq Q2HR IV Last administered on 10/27/16 12:38; Start 10/27/16 at 10:00; Stop 10/27/16 at 12:01; Status DC Albuterol/ Ipratropium (Duoneb) 3 ml RTQID NEB Last administered on 11/01/16 08 :17; Start 10/27/16 at 12:00 Heparin Sodium (Porcine) (Heparin Sodium) 10,000 unit STK-MED ONCE .ROUTE ; Start 10/27/16 at 10:01; Stop 10/27/16 at 10:02; Status DC Lidocaine/Sodium Bicarbonate 20 ml 20 ml STK-MED ONCE IJ ; Start 10/27/16 at 10: 01; Stop 10/27/16 at 10:02; Status DC Heparin Sodium/ Sodium Chloride 500 ml @ As Directed STK-MED ONCE .ROUTE ; Start 10/27/16 at 10:01; Stop 10/27/16 at 10:02; Status DC Lidocaine/Sodium Bicarbonate (Buffered Lidocaine 1%) 3 ml 1X ONCE IJ Last administered on 10/27/16 12:16; Start 10/27/16 at 10:15; Stop 10/27/16 at 10:16 ; Status DC Heparin Sodium/ Sodium Chloride 60 unit 1X ONCE IV Last administered on 12:14; Start 10/27/16 at 10:15; Stop 10/27/16 at 10:16; Status DC Heparin Sodium (Porcine) (Heparin Sodium) 2,500 unit 1X ONCE INT CAT Last administered on 10/27/16 12:16; Start 10/27/16 at 10:15; Stop 10/27/16 at 10:16 ; Status DC Aspirin (Krystian Aspirin) 325 mg DAILY PO Last administered on 11/01/16 08:25; Start 10/27/16 at 12:00 Vitamin D (Vitamin D3) 1,000 unit DAILY PO Last administered on 11/01/16 08:26 ; Start 10/27/16 at 12:00 Diltiazem HCl (Cardizem Cd) 300 mg DAILY PO Last administered on 11/01/16 08:26 ; Start 10/27/16 at 12:00 Furosemide (Lasix) 40 mg [id number] PO Last administered on 10/28/16 17:13; Start 10/27/16 at 12:00; Stop 10/29/16 at 07:12; Status DC Insulin Aspart (Novolog) 11 units TIDWMEALS SQ Last administered on 10/31/16 17 :57; Start 10/27/16 at 12:00 Levothyroxine Sodium (Synthroid) 125 mcg DAILY07 PO Last administered on 08:26; Start 10/27/16 at 12:00 Lisinopril (Prinivil) 40 mg DAILY PO Last administered on 10/31/16 18:02; Start 10/27/16 at 12:00 Methocarbamol (Robaxin) 500 mg PRN TID PRN PO MUSCLE SPASMS Last administered on 10/30/16 01:25; Start 10/27/16 at 11:15 Tamsulosin HCl (Flomax) 0.4 mg QHS PO Last administered on 10/31/16 20:40; Start 10/27/16 at 21:00 Albuterol Sulfate (Ventolin Neb Soln) 2.5 mg PRN Q4HRS PRN NEB SHORTNESS OF BREATH Last administered on 10/30/16 01:38; Start 10/27/16 at 11:30 Brimonidine Tartrate (Alphagan) 1 drop BID OU Last administered on 11/01/16 08: 27; Start 10/27/16 at 12:00 Artificial Tears (Artificial Tears) 1 drop PRN Q15MIN PRN OU DRY EYE; Start at 11:30 Ferrous Sulfate (Feosol) 325 mg BIDWMEALS PO Last administered on 11/01/16 08: 26; Start 10/27/16 at 12:00 Gabapentin (Neurontin) 300 mg BID PO Last administered on 11/01/16 08:27; Start 10/27/16 at 12:00 Non-Formulary Medication 1 inh QID IH ; Start 10/27/16 at 13:00; Status UNV Non-Formulary Medication 1 each TID TP ; Start 10/27/16 at 14:00; Status UNV Non-Formulary Medication 1 tab BID PO ; Start 10/27/16 at 21:00; Status UNV Potassium Chloride (Klor-Con) 10 meq [id number] PO Last administered on 08:31; Start 10/28/16 at 08:00 Atorvastatin Calcium (Lipitor) 20 mg QHS PO Last administered on 10/31/16 20:40 ; Start 10/27/16 at 21:00 Linagliptin (Tradjenta) 5 mg DAILY PO Last administered on 11/01/16 08:26; Start 10/27/16 at 12:00 Furosemide (Lasix) 60 mg 1X ONCE IVP ; Start 10/28/16 at 08:00; Stop 10/28/16 at 08:01; Status DC Sodium Bicarbonate 50 meq 50 meq Q2HR IV Last administered on 10/29/16 10:14; Start 10/29/16 at 08:00; Stop 10/29/16 at 10:01; Status DC Sodium Bicarbonate 150 meq/Sterile Water 1,150 ml @ 80 mls/hr [id number] PRN IV . Last administered on 10/29/16 16:41; Start 10/29/16 at 07:45; Stop 10/30/16 at 12:28; Status DC Sodium Chloride (Hypertonic Saline) 500 ml @ 30 mls/hr CONT PRN PRN IV see comments; Start 10/29/16 at 07:45; Stop 10/30/16 at 12:28; Status DC Acetaminophen (Tylenol) 650 mg PRN Q6HRS PRN PO PAIN Last administered on 16:52; Start 10/29/16 at 11:15 Nystatin (Nystop) 1 summer TID PRN PRN TP REDNESS; Start 10/29/16 at 11:15 Multi-Ingredient Ointment 1 summer 1 summer PRN QID PRN TP MUSCLE PAIN Last administered on 10/30/16 16:52; Start 10/29/16 at 11:15 Magnesium Sulfate/ Dextrose 50 ml @ 25 mls/hr PRN DAILY PRN IV for Mag < 1.7 on am labs; Start 10/30/16 at 09:45 Dobutamine HCl/ Dextrose 250 ml @ 0 mls/hr CONT PRN IV SEE I/O RECORD; Start at 11:00 Pantoprazole Sodium 40 mg 40 mg DAILYAC PO Last administered on 11/01/16 08:26 ; Start 10/31/16 at 07:30 Iron Sucrose 200 mg/Sodium Chloride 110 ml @ 55 mls/hr 3X/WEEK IV Last administered on 11/01/16 09:00; Start 11/01/16 at 09:00; Stop 11/10/16 at 10:59 Sodium Chloride (Hypertonic Saline) 500 ml @ 30 mls/hr CONT PRN PRN IV see comments Last administered on 11/01/16 03:29; Start 10/31/16 at 09:00 Acetaminophen/ Hydrocodone Bitart (Lortab 5/325) 1 tab PRN Q4HRS PRN PO PAIN Last administered on 11/01/16 10:20; Start 10/31/16 at 20:30 Active Scripts Active Reported Tamsulosin Hcl 0.4 Mg Cap.er.24h 0.4 Mg PO QHS Onglyza (Saxagliptin Hcl) 5 Mg Tablet 1 Tab PO DAILY Crestor (Rosuvastatin Calcium) 10 Mg Tablet 0.5 Tab PO DAILY Potassium Chloride 20 Meq Tablet.er 10 Meq PO DAILY Omeprazole 20 Mg Tablet.dr 1 Tab PO BID Nitrostat (Nitroglycerin) 0.3 Mg Tab.subl 0.3 Mg SL PRN Q5MIN PRN Methocarbamol 500 Mg Tablet 500 Mg PO PRN TID PRN [place] Ultra Strength (Menthol) 1 Each Adh..patch 1 Each TP TID Lisinopril 40 Mg Tablet 1 Tab PO DAILY Levothyroxine Sodium 125 Mcg Tablet 1 Tab PO DAILY Novolog Flexpen (Insulin Aspart) 100 Unit/1 Ml Insuln.pen 11 Unit SQ TIDWMEALS Gabapentin 300 Mg Capsule 300 Mg PO TID Furosemide 40 Mg Tablet 40 Mg PO BID Ferrous Sulfate 324 Mg Tablet.dr 324 Mg PO BID Cardizem Cd (Diltiazem Hcl) 300 Mg Cap.er.24h 300 Mg PO DAILY Vitamin D3 (Cholecalciferol (Vitamin D3)) 1,000 Unit Tablet 1 Tab PO DAILY Refresh Optive Advanced Drops (Carboxymethyl/Glycerin/Poly80) 10 Ml Drops 1 Drop OP PRN QID PRN Alphagan P (Brimonidine Tartrate) 5 Ml Drops 1 Drop EACHEYE BID Aspirin 325 Mg Tablet 1 Tab PO DAILY Albuterol Sulfate Conc Neb Soln (Albuterol Sulfate) 2.5 Mg/0.5 Ml Vial.neb 1 Vial NEB Q4HRS Combivent Respimat Inhal (Ipratropium/Albuterol Sulfate) 4 Gm Aer.w.adap 1 Inh IH QID Vitals/I & O Vital Sign - Last 24 Hours 5/08/1810/31/16 10/31/16 10/31/16 11:18 12:00 12:00 13:19 Temp 97.9 97.9 97.9 97.9 Pulse 76 76 Resp 18 B/P 78/38 89/53 Pulse Ox 93 93 O2 Delivery BiPAP/CPAP Bi-pap O2 Flow Rate 5.0 5.0 5.0 10/31/16 10/31/16 10/31/16 10/31/16 14:30 15:28 16:05 16:05 Temp 97.9 97.9 97.9 97.9 Pulse 71 72 Resp 16 B/P 114/59 117/63 Pulse Ox 93 91 91 O2 Delivery Nasal Cannula Nasal Cannula Nasal Cannula Bi-pap O2 Flow Rate 5.0 5.0 5.0 10/31/16 10/31/16 10/31/16 10/31/16 16:12 17:20 18:00 18:01 Temp 97.9 97.9 97.9 97.9 Pulse 72 72 71 Resp 17 17 B/P 118/58 108/58 118/58 Pulse Ox 91 91 O2 Delivery Nasal Cannula Nasal Cannula O2 Flow Rate 5.0 5.0 5.0 10/31/16 10/31/16 10/31/16 10/31/16 18:02 19:00 19:44 19:57 Pulse 72 71 Resp 18 B/P 118/58 101/43 Pulse Ox 92 94 O2 Delivery Nasal Cannula Nasal Cannula Nasal Cannula O2 Flow Rate 5.0 5.0 5.0 10/31/16 10/31/16 10/31/16 10/31/16 20:03 20:41 21:07 21:34 Temp 98.7 98.7 Pulse 75 76 Resp 20 20 B/P 106/48 96/52 Pulse Ox 92 92 95 96 O2 Delivery Nasal Cannula Nasal Cannula BiPAP/CPAP BiPAP/CPAP O2 Flow Rate 5.0 5.0 10/31/16 10/31/16 10/31/16 10/31/16 21:41 22:03 23:09 23:41 Pulse 71 71 Resp 18 18 20 B/P 81/46 92/44 Pulse Ox 95 96 92 94 O2 Delivery BiPAP/CPAP BiPAP/CPAP BiPAP/CPAP BiPAP/CPAP 11/01/16 11/01/16 11/01/16 11/01/16 00:03 00:04 01:03 01:20 Temp 97.9 97.9 Pulse 71 71 Resp 18 20 B/P 92/52 84/49 Pulse Ox 95 93 94 O2 Delivery BiPAP/CPAP Nasal Cannula BiPAP/CPAP BiPAP/CPAP O2 Flow Rate 5.0 11/01/16 11/01/16 11/01/16 11/01/16 02:00 03:11 04:00 04:19 Temp 98.7 98.7 Pulse 72 76 67 Resp 20 22 20 B/P 80/49 88/57 113/55 Pulse Ox 93 93 92 O2 Delivery BiPAP/CPAP Nasal Cannula Nasal Cannula Nasal Cannula O2 Flow Rate 4.0 4.0 4.0 11/01/16 11/01/16 11/01/16 11/01/16 05:02 06:04 07:00 08:00 Pulse 71 72 72 Resp 20 20 23 B/P 96/51 108/50 116/54 Pulse Ox 92 92 95 O2 Delivery Nasal Cannula Nasal Cannula BiPAP/CPAP Nasal Cannula O2 Flow Rate 4.0 4.0 4.0 11/01/16 11/01/16 11/01/16 11/01/16 08:00 08:18 08:26 09:00 Temp 98.9 98.9 Pulse 71 76 71 Resp 28 32 B/P 112/48 112/48 96/48 Pulse Ox 93 91 88 O2 Delivery Nasal Cannula Nasal Cannula Nasal Cannula O2 Flow Rate 4.0 5.0 4.0 11/01/16 11/01/16 10:00 10:20 Pulse 71 Resp 25 B/P 81/47 Pulse Ox 91 91 O2 Delivery Nasal Cannula Nasal Cannula O2 Flow Rate 4.0 4.0 Intake and Output 10/31/16 10/31/16 11/01/16 14:59 22:59 06:59 Intake Total 550 ml 350 ml 633 ml Output Total 670 ml 400 ml 1100 ml Balance -120 ml -50 ml -467 ml RADU BAUTISTA MD November 01, 2016 11:14
--- NOTE | 2016-11-01 11:16 | PDOC ---
SUBJECTIVE ROS BELINDA/ CKD III and HypoNatremia Doing and feeling better CVS: no Orthopnea, no CP RESP: no SOB, no RAPHAEL GI: no Nausea, no Vomiting : no Dysuria, no Urgency OBJECTIVE Vital Signs Vital Signs Date Time Temp Pulse Resp B/P Pulse Ox O2 Delivery O2 Flow Rate FiO2 11/01/16 10:20 91 Nasal Cannula 4.0 11/01/16 10:00 71 25 81/47 11/01/16 08:00 98.9 98.9 I & 0 Intake and Output 11/01/16 07:00 Intake Total 1533 ml Output Total 2370 ml Balance -837 ml Intake Oral 1200 ml IV Total 333 ml Output Urine Total 2370 ml PHYSICAL EXAM Physical Exam General Appearance: Awake Alert Oriented x 3 In no resp Distress currently - but remains on biPAP Eyes: VIsion Unchanged Conjunctiva Normal EN: No EN Drainage Mucous Memb. moist Neck: no JVD min JVP Supple no Thyromegaly CVS: S1 S2 no audible Murmur No Gallop No Rub no Edema Resp: no Rales no wheezing no Acc. Muscle use GI: BS +ve NO Bruit Non Tender Non Distended : no CVA tenderness; no Suprapubic Tenderness Assessment & Plan ARF/ ATN ? : now resolved - will leave HD Cath in place due to upcoming C Known CKD III with Creat ~ 1.9ish at [facility] and now much better. CmyoPahty with ^ed BNP (no CHF on CXR per report) - now on Dobutamine ? CAD - plans for LHC in the next 48 hrs Low Na - better after starting 3% ; watch off of same now that he is > 130 Anemia: IV Iron as ordered HyperUricemia - anticipate improvement with vol repletion hypoAlbuminemia - min Proteinuria - suspect due to Poor PO intake. Discussed Plan of Care and prognosis etc. at length with pt COMMENT/RELEVANT DATA Meds Current Medications Medications (Trade) Dose Ordered Sig/Jcarlos Start Time Stop Time Status Last Admin Dose Admin Acetaminophen (Tylenol) 650 mg PRN Q6HRS PRN 10/29/16 11:15 10/30/16 16:52 650 MG Acetaminophen/ Hydrocodone Bitart (Lortab 5/325) 1 tab PRN Q4HRS PRN 10/31/16 20:30 11/01/16 10:20 1 TAB Albuterol Sulfate (Ventolin Neb Soln) 2.5 mg PRN Q4HRS PRN 10/27/16 11:30 10/30/16 01:38 2.5 MG Albuterol/ Ipratropium (Duoneb) 3 ml RTQID 10/27/16 12:00 11/01/16 08:17 3 ML Artificial Tears (Artificial Tears) 1 drop PRN Q15MIN PRN 10/27/16 11:30 Aspirin (Krystian Aspirin) 325 mg DAILY 10/27/16 12:00 11/01/16 08:25 325 MG Atorvastatin Calcium (Lipitor) 20 mg QHS 10/27/16 21:00 10/31/16 20:40 20 MG Brimonidine Tartrate (Alphagan) 1 drop BID 10/27/16 12:00 11/01/16 08:27 1 DROP Diltiazem HCl (Cardizem Cd) 300 mg DAILY 10/27/16 12:00 11/01/16 08:26 300 MG Dobutamine HCl/ Dextrose 250 ml @ 0 mls/hr CONT PRN 10/30/16 11:00 Ferrous Sulfate (Feosol) 325 mg BIDWMEALS 10/27/16 12:00 11/01/16 08:26 325 MG Furosemide (Lasix) 60 mg 1X ONCE 10/28/16 08:00 10/28/16 08:01 DC Gabapentin (Neurontin) 300 mg BID 10/27/16 12:00 11/01/16 08:27 300 MG Heparin Sodium (Porcine) (Heparin Sodium) 2,500 unit 1X ONCE 10/27/16 10:15 10/27/16 10:16 DC 10/27/16 12:16 2,800 UNIT Heparin Sodium/ Sodium Chloride 60 unit 1X ONCE 10/27/16 10:15 10/27/16 10:16 DC 10/27/16 12:14 60 UNIT Insulin Aspart (Novolog) 11 units TIDWMEALS 10/27/16 12:00 10/31/16 17:57 11 UNITS Iron Sucrose 200 mg/Sodium Chloride 110 ml @ 55 mls/hr 3X/WEEK 11/01/16 09:00 11/10/16 10:59 11/01/16 09:00 55 MLS/HR Levothyroxine Sodium (Synthroid) 125 mcg DAILY07 10/27/16 12:00 11/01/16 08:26 125 MCG Lidocaine/Sodium Bicarbonate (Buffered Lidocaine 1%) 3 ml 1X ONCE 10/27/16 10:15 10/27/16 10:16 DC 10/27/16 12:16 3 ML Linagliptin (Tradjenta) 5 mg DAILY 10/27/16 12:00 11/01/16 08:26 5 MG Lisinopril (Prinivil) 40 mg DAILY 10/27/16 12:00 10/31/16 18:02 40 MG Magnesium Sulfate/ Dextrose 50 ml @ 25 mls/hr PRN DAILY PRN 10/30/16 09:45 Methocarbamol (Robaxin) 500 mg PRN TID PRN 10/27/16 11:15 10/30/16 01:25 500 MG Multi-Ingredient Ointment 1 summer 1 summer PRN QID PRN 10/29/16 11:15 10/30/16 16:52 1 SUMMER Non-Formulary Medication 1 tab BID 10/27/16 21:00 UNV Nystatin (Nystop) 1 summer TID PRN PRN 10/29/16 11:15 Pantoprazole Sodium (Protonix Vial) 40 mg DAILYAC 10/26/16 17:00 10/30/16 11:57 DC 10/30/16 08:32 40 MG Pantoprazole Sodium 40 mg 40 mg DAILYAC 10/31/16 07:30 11/01/16 08:26 40 MG Potassium Chloride (Klor-Con) 10 meq [id number] 10/28/16 08:00 10/31/16 08:31 10 MEQ Sodium Bicarbonate 50 meq 50 meq Q2HR 10/29/16 08:00 10/29/16 10:01 DC 10/29/16 10:14 50 MEQ Sodium Bicarbonate/ Sterile Water (Water) 1,150 ml @ 80 mls/hr [id number] PRN 10/29/16 07:45 10/30/16 12:28 DC 10/29/16 16:41 80 MLS/HR Sodium Bicarbonate 50 meq Q2HR 10/27/16 10:00 10/27/16 12:01 DC 10/27/16 12:38 50 MEQ Sodium Chloride (Hypertonic Saline) 500 ml @ 30 mls/hr CONT PRN PRN 10/31/16 09:00 11/01/16 03:29 30 MLS/HR Tamsulosin HCl (Flomax) 0.4 mg QHS 10/27/16 21:00 10/31/16 20:40 0.4 MG Vitamin D (Vitamin D3) 1,000 unit DAILY 10/27/16 12:00 11/01/16 08:26 1,000 UNIT Lab Laboratory Tests Test 10/31/16 11:55 10/31/16 13:02 10/31/16 16:00 10/31/16 17:34 Sodium Level 124mmol/L (136-145) 126mmol/L (136-145) Glucose (Fingerstick) 152mg/dL (70-99) 160mg/dL (70-99) Test 10/31/16 19:53 10/31/16 20:44 11/01/16 00:15 11/01/16 04:20 Sodium Level 127mmol/L (136-145) 128mmol/L (136-145) 129mmol/L (136-145) Glucose (Fingerstick) 123mg/dL (70-99) White Blood Count 10.3x10^3/uL (4.0-11.0) Red Blood Count 3.43x10^6/uL (4.30-5.70) Hemoglobin 8.8g/dL (13.0-17.5) Hematocrit 27.2% (39.0-53.0) Mean Corpuscular Volume 79fL (79-100) Mean Corpuscular Hemoglobin 26pg (25-35) Mean Corpuscular Hemoglobin Concent 32g/dL (31-37) Red Cell Distribution Width 19.1% (11.5-14.5) Platelet Count 183x10^3/uL (140-400) Neutrophils (%) (Auto) 81% (31-73) Lymphocytes (%) (Auto) 12% (24-48) Monocytes (%) (Auto) 6% (0-9) Eosinophils (%) (Auto) 0% (0-3) Basophils (%) (Auto) 0% (0-3) Neutrophils # (Auto) 8.3x10^3uL (1.8-7.7) Lymphocytes # (Auto) 1.3x10^3/uL (1.0-4.8) Monocytes # (Auto) 0.6x10^3/uL (0.0-1.1) Eosinophils # (Auto) 0.0x10^3/uL (0.0-0.7) Basophils # (Auto) 0.0x10^3/uL (0.0-0.2) Potassium Level 4.4mmol/L (3.5-5.1) Chloride Level 96mmol/L (98-107) Carbon Dioxide Level 28mmol/L (21-32) Anion Gap 5 (6-14) Blood Urea Nitrogen 36mg/dL (8-26) Creatinine 1.3mg/dL (0.7-1.3) Estimated GFR (Cockcroft-Gault) 54.3 Glucose Level 135mg/dL (70-99) Lactic Acid Level 1.1mmol/L (0.4-2.0) Calcium Level 7.7mg/dL (8.5-10.1) Phosphorus Level 3.0mg/dL (2.6-4.7) Magnesium Level 2.0mg/dL (1.8-2.4) Albumin 2.4g/dL (3.4-5.0) Test 11/01/16 08:05 Sodium Level 132mmol/L (136-145) Glucose (Fingerstick) 137mg/dL (70-99) AILIN MCBRIDE MD November 01, 2016 11:16
[2016-11-01 12:11] LABS: HCO3 ABG 21 mmol/L (21-28); PCO2 ABG 29 mmHg (35-46); PH ABG 7.49 (7.35-7.45); PO2 ABG 59 mmHg (65-108); SAT O2 ABG 90 % (92-99)
[2016-11-01 12:38] LABS: FIO2 ABG 36
--- NOTE | 2016-11-01 12:45 | PDOC ---
PULMONARY PROGRESS NOTES Subjective BACK ON DOBUTAMINE/ BIPAP Vitals Vital Signs Date Time Temp Pulse Resp B/P Pulse Ox O2 Delivery O2 Flow Rate FiO2 11/01/16 12:12 91 Nasal Cannula 4.0 11/01/16 12:00 98.6 71 30 84/43 98.6 ROS: No Nausea, No Chest Pain, No Abdominal Pain, No Increase Cough General: Alert, No acute distress Lungs: Other (few rhonchi) Cardiovascular: S1, S2 Abdomen: Soft Neuro Exam: Alert Extremities: Other (1+edema) Skin: Warm Labs Laboratory Tests Test 10/30/16 14:00 10/30/16 14:10 10/30/16 16:57 10/30/16 20:21 Glucose (Fingerstick) 148mg/dL (70-99) 153mg/dL (70-99) 149mg/dL (70-99) 173mg/dL (70-99) Test 10/31/16 04:40 10/31/16 04:45 10/31/16 08:25 10/31/16 11:55 Lactic Acid Level 1.3mmol/L (0.4-2.0) Magnesium Level 2.1mg/dL (1.8-2.4) White Blood Count 9.7x10^3/uL (4.0-11.0) Red Blood Count 3.54x10^6/uL (4.30-5.70) Hemoglobin 9.1g/dL (13.0-17.5) Hematocrit 27.7% (39.0-53.0) Mean Corpuscular Volume 78fL (79-100) Mean Corpuscular Hemoglobin 26pg (25-35) Mean Corpuscular Hemoglobin Concent 33g/dL (31-37) Red Cell Distribution Width 18.8% (11.5-14.5) Platelet Count 156x10^3/uL (140-400) Neutrophils (%) (Auto) 77% (31-73) Lymphocytes (%) (Auto) 16% (24-48) Monocytes (%) (Auto) 7% (0-9) Eosinophils (%) (Auto) 0% (0-3) Basophils (%) (Auto) 0% (0-3) Neutrophils # (Auto) 7.4x10^3uL (1.8-7.7) Lymphocytes # (Auto) 1.6x10^3/uL (1.0-4.8) Monocytes # (Auto) 0.6x10^3/uL (0.0-1.1) Eosinophils # (Auto) 0.0x10^3/uL (0.0-0.7) Basophils # (Auto) 0.0x10^3/uL (0.0-0.2) Sodium Level 124mmol/L (136-145) 124mmol/L (136-145) Potassium Level 4.2mmol/L (3.5-5.1) Chloride Level 90mmol/L (98-107) Carbon Dioxide Level 27mmol/L (21-32) Anion Gap 7 (6-14) Blood Urea Nitrogen 53mg/dL (8-26) Creatinine 1.5mg/dL (0.7-1.3) Estimated GFR (Cockcroft-Gault) 46.0 Glucose Level 135mg/dL (70-99) Uric Acid 9.0mg/dL (3.5-7.2) Calcium Level 7.7mg/dL (8.5-10.1) Phosphorus Level 3.3mg/dL (2.6-4.7) Albumin 2.6g/dL (3.4-5.0) Glucose (Fingerstick) 143mg/dL (70-99) Test 10/31/16 13:02 10/31/16 16:00 10/31/16 17:34 10/31/16 19:53 Glucose (Fingerstick) 152mg/dL (70-99) 160mg/dL (70-99) Sodium Level 126mmol/L (136-145) 127mmol/L (136-145) Test 10/31/16 20:44 11/01/16 00:15 11/01/16 04:20 11/01/16 08:05 Glucose (Fingerstick) 123mg/dL (70-99) 137mg/dL (70-99) Sodium Level 128mmol/L (136-145) 129mmol/L (136-145) 132mmol/L (136-145) White Blood Count 10.3x10^3/uL (4.0-11.0) Red Blood Count 3.43x10^6/uL (4.30-5.70) Hemoglobin 8.8g/dL (13.0-17.5) Hematocrit 27.2% (39.0-53.0) Mean Corpuscular Volume 79fL (79-100) Mean Corpuscular Hemoglobin 26pg (25-35) Mean Corpuscular Hemoglobin Concent 32g/dL (31-37) Red Cell Distribution Width 19.1% (11.5-14.5) Platelet Count 183x10^3/uL (140-400) Neutrophils (%) (Auto) 81% (31-73) Lymphocytes (%) (Auto) 12% (24-48) Monocytes (%) (Auto) 6% (0-9) Eosinophils (%) (Auto) 0% (0-3) Basophils (%) (Auto) 0% (0-3) Neutrophils # (Auto) 8.3x10^3uL (1.8-7.7) Lymphocytes # (Auto) 1.3x10^3/uL (1.0-4.8) Monocytes # (Auto) 0.6x10^3/uL (0.0-1.1) Eosinophils # (Auto) 0.0x10^3/uL (0.0-0.7) Basophils # (Auto) 0.0x10^3/uL (0.0-0.2) Potassium Level 4.4mmol/L (3.5-5.1) Chloride Level 96mmol/L (98-107) Carbon Dioxide Level 28mmol/L (21-32) Anion Gap 5 (6-14) Blood Urea Nitrogen 36mg/dL (8-26) Creatinine 1.3mg/dL (0.7-1.3) Estimated GFR (Cockcroft-Gault) 54.3 Glucose Level 135mg/dL (70-99) Lactic Acid Level 1.1mmol/L (0.4-2.0) Calcium Level 7.7mg/dL (8.5-10.1) Phosphorus Level 3.0mg/dL (2.6-4.7) Magnesium Level 2.0mg/dL (1.8-2.4) Albumin 2.4g/dL (3.4-5.0) Test 11/01/16 11:48 11/01/16 11:58 11/01/16 12:10 O2 Saturation 90% (92-99) Arterial Blood pH 7.49 (7.35-7.45) Arterial Blood pCO2 at Patient Temp 29mmHg (35-46) Arterial Blood pO2 at Patient Temp 59mmHg (65-108) Arterial Blood HCO3 21mmol/L (21-28) Arterial Blood Base Excess -1mmol/L (-3-3) FiO2 36 Glucose (Fingerstick) 182mg/dL (70-99) Sodium Level 129mmol/L (136-145) Laboratory Tests Test 10/31/16 13:02 10/31/16 16:00 10/31/16 17:34 10/31/16 19:53 Glucose (Fingerstick) 152mg/dL (70-99) 160mg/dL (70-99) Sodium Level 126mmol/L (136-145) 127mmol/L (136-145) Test 10/31/16 20:44 11/01/16 00:15 11/01/16 04:20 11/01/16 08:05 Glucose (Fingerstick) 123mg/dL (70-99) 137mg/dL (70-99) Sodium Level 128mmol/L (136-145) 129mmol/L (136-145) 132mmol/L (136-145) White Blood Count 10.3x10^3/uL (4.0-11.0) Red Blood Count 3.43x10^6/uL (4.30-5.70) Hemoglobin 8.8g/dL (13.0-17.5) Hematocrit 27.2% (39.0-53.0) Mean Corpuscular Volume 79fL (79-100) Mean Corpuscular Hemoglobin 26pg (25-35) Mean Corpuscular Hemoglobin Concent 32g/dL (31-37) Red Cell Distribution Width 19.1% (11.5-14.5) Platelet Count 183x10^3/uL (140-400) Neutrophils (%) (Auto) 81% (31-73) Lymphocytes (%) (Auto) 12% (24-48) Monocytes (%) (Auto) 6% (0-9) Eosinophils (%) (Auto) 0% (0-3) Basophils (%) (Auto) 0% (0-3) Neutrophils # (Auto) 8.3x10^3uL (1.8-7.7) Lymphocytes # (Auto) 1.3x10^3/uL (1.0-4.8) Monocytes # (Auto) 0.6x10^3/uL (0.0-1.1) Eosinophils # (Auto) 0.0x10^3/uL (0.0-0.7) Basophils # (Auto) 0.0x10^3/uL (0.0-0.2) Potassium Level 4.4mmol/L (3.5-5.1) Chloride Level 96mmol/L (98-107) Carbon Dioxide Level 28mmol/L (21-32) Anion Gap 5 (6-14) Blood Urea Nitrogen 36mg/dL (8-26) Creatinine 1.3mg/dL (0.7-1.3) Estimated GFR (Cockcroft-Gault) 54.3 Glucose Level 135mg/dL (70-99) Lactic Acid Level 1.1mmol/L (0.4-2.0) Calcium Level 7.7mg/dL (8.5-10.1) Phosphorus Level 3.0mg/dL (2.6-4.7) Magnesium Level 2.0mg/dL (1.8-2.4) Albumin 2.4g/dL (3.4-5.0) Test 11/01/16 11:48 11/01/16 11:58 11/01/16 12:10 O2 Saturation 90% (92-99) Arterial Blood pH 7.49 (7.35-7.45) Arterial Blood pCO2 at Patient Temp 29mmHg (35-46) Arterial Blood pO2 at Patient Temp 59mmHg (65-108) Arterial Blood HCO3 21mmol/L (21-28) Arterial Blood Base Excess -1mmol/L (-3-3) FiO2 36 Glucose (Fingerstick) 182mg/dL (70-99) Sodium Level 129mmol/L (136-145) Medications Active Scripts Medications Dose Route/Sig Days Date Category Tamsulosin Hcl 0.4 Mg Cap.er.24h 0.4 Mg PO QHS 10/27/16 Reported Onglyza (Saxagliptin Hcl) 5 Mg Tablet 1 Tab PO DAILY 10/27/16 Reported Crestor (Rosuvastatin Calcium) 10 Mg Tablet 0.5 Tab PO DAILY 10/27/16 Reported Potassium Chloride 20 Meq Tablet.er 10 Meq PO DAILY 10/27/16 Reported Omeprazole 20 Mg Tablet. 1 Tab PO BID 10/27/16 Reported Nitrostat (Nitroglycerin) 0.3 Mg Tab.subl 0.3 Mg SL PRN Q5MIN PRN 10/27/16 Reported Methocarbamol 500 Mg Tablet 500 Mg PO PRN TID PRN 10/27/16 Reported Bengay Ultra Strength (Menthol) 1 Each Adh..patch 1 Each TP TID 10/27/16 Reported Lisinopril 40 Mg Tablet 1 Tab PO DAILY 10/27/16 Reported Levothyroxine Sodium 125 Mcg Tablet 1 Tab PO DAILY 10/27/16 Reported Novolog Flexpen (Insulin Aspart) 100 Unit/1 Ml Insuln.pen 11 Unit SQ TIDWMEALS 10/27/16 Reported Gabapentin 300 Mg Capsule 300 Mg PO TID 10/27/16 Reported Furosemide 40 Mg Tablet 40 Mg PO BID 10/27/16 Reported Ferrous Sulfate 324 Mg Tablet. 324 Mg PO BID 10/27/16 Reported Cardizem Cd (Diltiazem Hcl) 300 Mg Cap.er.24h 300 Mg PO DAILY 10/27/16 Reported Vitamin D3 (Cholecalciferol (Vitamin D3)) 1,000 Unit Tablet 1 Tab PO DAILY 10/27/16 Reported Refresh Optive Advanced Drops (Carboxymethyl/Glycerin/Poly80) 10 Ml Drops 1 Drop OP PRN QID PRN 10/27/16 Reported Alphagan P (Brimonidine Tartrate) 5 Ml Drops 1 Drop EACHEYE BID 10/27/16 Reported Aspirin 325 Mg Tablet 1 Tab PO DAILY 10/27/16 Reported Albuterol Sulfate Conc Neb Soln (Albuterol Sulfate) 2.5 Mg/0.5 Ml Vial.neb 1 Vial NEB Q4HRS 10/27/16 Reported Combivent Respimat Inhal (Ipratropium/Albuterol Sulfate) 4 Gm Aer.w.adap 1 Inh IH QID 10/27/16 Reported Impression . 1. Acute hypoxemic respiratory failure/AECOPD/ Acute on chronic systolic/ Diastolic HF 2. Acute on chronic kidney failure. 3. Chronic heart failure, Acute on chronic systolic/ diastolic heart failure. 4. Cardiomyopathy. (EF improved from 25 to 50%) 5. Status post pacemaker. 6. Coronary artery disease, status post coronary artery bypass grafting. 7. Hypertension. 8. Obstructive sleep apnea. 9. Acute on chronic blood-loss anemia. 10. Metabolic acidosis, suspect secondary to renal tubular acidosis, chronic kidney disease. Plan . 1. BiPAP with oxygen supplementation prn/ ABG with hypoxia, repeat cxr today 2. Venous Dopplers of the lower extremities, neg 3. Follow cardiology input/ cath postpone till am 4. No need for antibiotics. 5. Monitor hemoglobin and hematocrit. d/w RN/RT REFUGIO SALAZAR MD November 01, 2016 12:45
--- NOTE | 2016-11-01 14:07 | RAD ---
Portable chest, 11/01/2016: History: Possible congestive heart failure There has been a previous median sternotomy. A right-sided transvenous pacemaker is unchanged in position. A left jugular central venous catheter extends into the superior aspect of the right atrium. The heart is within normal limits in size and unchanged. There is now blunting of the left lateral costophrenic angle compatible with a small amount of pleural fluid. There is an abnormal density in the left vertebrophrenic angle compatible with infiltrate and/or pleural fluid. There are now minimal patchy parenchymal opacities laterally in the left upper lobe. The right chest remains clear. IMPRESSION: Developing patchy left lung infiltrates suggesting pneumonia with a small amount of associated left-sided pleural fluid.
[2016-11-01] MEDS ORDERED: FUROSEMIDE 20 MG/2 ML VIAL. IVP ONE ×2 (15:45→21:15)
--- NOTE | 2016-11-01 18:44 | PDOC ---
PROGRESS NOTES Subjective Subjective Patient feels a little better today but hemoglobin is in the 8 range. Objective Objective Vital Signs Date Time Temp Pulse Resp B/P Pulse Ox O2 Delivery O2 Flow Rate FiO2 11/01/16 18:00 71 35 95/51 94 Nasal Cannula 4.0 11/01/16 16:00 96.5 96.5 Intake and Output 11/01/16 07:00 Intake Total 1533 ml Output Total 2370 ml Balance -837 ml Intake Oral 1200 ml IV Total 333 ml Output Urine Total 2370 ml Physical Exam Physical Exam No significant changes in cardiac exam Assessment Assessment In view of the patient's overall situation and recent GI bleed with the present anemia and in hemoglobin of 8 I do not feel that we have much of her condition should he have any bleeding problems in the Gas Leak Inspector or following the heart catheterization therefore I would recommend to transfuse the patient at least 1 unit of packed red blood cells and then do the heart catheterization tomorrow. The patient agrees with this approach. This was discussed with nephrology and pulmonary as well as Dr. Garza Problems Medical Problems: (1) CHF exacerbation Status: Acute Comment Review of Relevant I have reviewed the following items dorian (where applicable) has been applied. Labs Laboratory Tests Test 10/30/16 20:21 10/31/16 04:40 10/31/16 04:45 10/31/16 08:25 Glucose (Fingerstick) 173mg/dL (70-99) 143mg/dL (70-99) Lactic Acid Level 1.3mmol/L (0.4-2.0) Magnesium Level 2.1mg/dL (1.8-2.4) White Blood Count 9.7x10^3/uL (4.0-11.0) Red Blood Count 3.54x10^6/uL (4.30-5.70) Hemoglobin 9.1g/dL (13.0-17.5) Hematocrit 27.7% (39.0-53.0) Mean Corpuscular Volume 78fL (79-100) Mean Corpuscular Hemoglobin 26pg (25-35) Mean Corpuscular Hemoglobin Concent 33g/dL (31-37) Red Cell Distribution Width 18.8% (11.5-14.5) Platelet Count 156x10^3/uL (140-400) Neutrophils (%) (Auto) 77% (31-73) Lymphocytes (%) (Auto) 16% (24-48) Monocytes (%) (Auto) 7% (0-9) Eosinophils (%) (Auto) 0% (0-3) Basophils (%) (Auto) 0% (0-3) Neutrophils # (Auto) 7.4x10^3uL (1.8-7.7) Lymphocytes # (Auto) 1.6x10^3/uL (1.0-4.8) Monocytes # (Auto) 0.6x10^3/uL (0.0-1.1) Eosinophils # (Auto) 0.0x10^3/uL (0.0-0.7) Basophils # (Auto) 0.0x10^3/uL (0.0-0.2) Sodium Level 124mmol/L (136-145) Potassium Level 4.2mmol/L (3.5-5.1) Chloride Level 90mmol/L (98-107) Carbon Dioxide Level 27mmol/L (21-32) Anion Gap 7 (6-14) Blood Urea Nitrogen 53mg/dL (8-26) Creatinine 1.5mg/dL (0.7-1.3) Estimated GFR (Cockcroft-Gault) 46.0 Glucose Level 135mg/dL (70-99) Uric Acid 9.0mg/dL (3.5-7.2) Calcium Level 7.7mg/dL (8.5-10.1) Phosphorus Level 3.3mg/dL (2.6-4.7) Albumin 2.6g/dL (3.4-5.0) Test 10/31/16 11:55 10/31/16 13:02 10/31/16 16:00 10/31/16 17:34 Sodium Level 124mmol/L (136-145) 126mmol/L (136-145) Glucose (Fingerstick) 152mg/dL (70-99) 160mg/dL (70-99) Test 10/31/16 19:53 10/31/16 20:44 11/01/16 00:15 11/01/16 04:20 Sodium Level 127mmol/L (136-145) 128mmol/L (136-145) 129mmol/L (136-145) Glucose (Fingerstick) 123mg/dL (70-99) White Blood Count 10.3x10^3/uL (4.0-11.0) Red Blood Count 3.43x10^6/uL (4.30-5.70) Hemoglobin 8.8g/dL (13.0-17.5) Hematocrit 27.2% (39.0-53.0) Mean Corpuscular Volume 79fL (79-100) Mean Corpuscular Hemoglobin 26pg (25-35) Mean Corpuscular Hemoglobin Concent 32g/dL (31-37) Red Cell Distribution Width 19.1% (11.5-14.5) Platelet Count 183x10^3/uL (140-400) Neutrophils (%) (Auto) 81% (31-73) Lymphocytes (%) (Auto) 12% (24-48) Monocytes (%) (Auto) 6% (0-9) Eosinophils (%) (Auto) 0% (0-3) Basophils (%) (Auto) 0% (0-3) Neutrophils # (Auto) 8.3x10^3uL (1.8-7.7) Lymphocytes # (Auto) 1.3x10^3/uL (1.0-4.8) Monocytes # (Auto) 0.6x10^3/uL (0.0-1.1) Eosinophils # (Auto) 0.0x10^3/uL (0.0-0.7) Basophils # (Auto) 0.0x10^3/uL (0.0-0.2) Potassium Level 4.4mmol/L (3.5-5.1) Chloride Level 96mmol/L (98-107) Carbon Dioxide Level 28mmol/L (21-32) Anion Gap 5 (6-14) Blood Urea Nitrogen 36mg/dL (8-26) Creatinine 1.3mg/dL (0.7-1.3) Estimated GFR (Cockcroft-Gault) 54.3 Glucose Level 135mg/dL (70-99) Lactic Acid Level 1.1mmol/L (0.4-2.0) Calcium Level 7.7mg/dL (8.5-10.1) Phosphorus Level 3.0mg/dL (2.6-4.7) Magnesium Level 2.0mg/dL (1.8-2.4) Albumin 2.4g/dL (3.4-5.0) Test 11/01/16 08:05 11/01/16 11:48 11/01/16 11:58 11/01/16 12:10 Sodium Level 132mmol/L (136-145) 129mmol/L (136-145) Glucose (Fingerstick) 137mg/dL (70-99) 182mg/dL (70-99) O2 Saturation 90% (92-99) Arterial Blood pH 7.49 (7.35-7.45) Arterial Blood pCO2 at Patient Temp 29mmHg (35-46) Arterial Blood pO2 at Patient Temp 59mmHg (65-108) Arterial Blood HCO3 21mmol/L (21-28) Arterial Blood Base Excess -1mmol/L (-3-3) FiO2 36 Uric Acid 7.0mg/dL (3.5-7.2) Test 11/01/16 16:35 Glucose (Fingerstick) 224mg/dL (70-99) Laboratory Tests Test 10/31/16 19:53 10/31/16 20:44 11/01/16 00:15 11/01/16 04:20 Sodium Level 127mmol/L (136-145) 128mmol/L (136-145) 129mmol/L (136-145) Glucose (Fingerstick) 123mg/dL (70-99) White Blood Count 10.3x10^3/uL (4.0-11.0) Red Blood Count 3.43x10^6/uL (4.30-5.70) Hemoglobin 8.8g/dL (13.0-17.5) Hematocrit 27.2% (39.0-53.0) Mean Corpuscular Volume 79fL (79-100) Mean Corpuscular Hemoglobin 26pg (25-35) Mean Corpuscular Hemoglobin Concent 32g/dL (31-37) Red Cell Distribution Width 19.1% (11.5-14.5) Platelet Count 183x10^3/uL (140-400) Neutrophils (%) (Auto) 81% (31-73) Lymphocytes (%) (Auto) 12% (24-48) Monocytes (%) (Auto) 6% (0-9) Eosinophils (%) (Auto) 0% (0-3) Basophils (%) (Auto) 0% (0-3) Neutrophils # (Auto) 8.3x10^3uL (1.8-7.7) Lymphocytes # (Auto) 1.3x10^3/uL (1.0-4.8) Monocytes # (Auto) 0.6x10^3/uL (0.0-1.1) Eosinophils # (Auto) 0.0x10^3/uL (0.0-0.7) Basophils # (Auto) 0.0x10^3/uL (0.0-0.2) Potassium Level 4.4mmol/L (3.5-5.1) Chloride Level 96mmol/L (98-107) Carbon Dioxide Level 28mmol/L (21-32) Anion Gap 5 (6-14) Blood Urea Nitrogen 36mg/dL (8-26) Creatinine 1.3mg/dL (0.7-1.3) Estimated GFR (Cockcroft-Gault) 54.3 Glucose Level 135mg/dL (70-99) Lactic Acid Level 1.1mmol/L (0.4-2.0) Calcium Level 7.7mg/dL (8.5-10.1) Phosphorus Level 3.0mg/dL (2.6-4.7) Magnesium Level 2.0mg/dL (1.8-2.4) Albumin 2.4g/dL (3.4-5.0) Test 11/01/16 08:05 11/01/16 11:48 11/01/16 11:58 11/01/16 12:10 Sodium Level 132mmol/L (136-145) 129mmol/L (136-145) Glucose (Fingerstick) 137mg/dL (70-99) 182mg/dL (70-99) O2 Saturation 90% (92-99) Arterial Blood pH 7.49 (7.35-7.45) Arterial Blood pCO2 at Patient Temp 29mmHg (35-46) Arterial Blood pO2 at Patient Temp 59mmHg (65-108) Arterial Blood HCO3 21mmol/L (21-28) Arterial Blood Base Excess -1mmol/L (-3-3) FiO2 36 Uric Acid 7.0mg/dL (3.5-7.2) Test 11/01/16 16:35 Glucose (Fingerstick) 224mg/dL (70-99) Microbiology 10/27/16 Urine Culture - Final, Complete 10/27/16 Urine Culture Result 1 (JANEL) - Final, Complete Medications Current Medications Pantoprazole Sodium 40 mg 40 mg DAILYAC IVP Last administered on 10/30/16 08:32 ; Start 10/26/16 at 17:00; Stop 10/30/16 at 11:57; Status DC Dobutamine HCl/ Dextrose 250 ml @ 0 mls/hr CONT PRN IV SEE I/O RECORD Last administered on 10/29/16 03:02; Start 10/26/16 at 17:00; Stop 10/30/16 at 10:57 ; Status DC Furosemide (Lasix) 60 mg 1X ONCE IVP Last administered on 10/27/16 08:15; Start 10/27/16 at 08:30; Stop 10/27/16 at 08:31; Status DC Sodium Bicarbonate 50 meq Q2HR IV Last administered on 10/27/16 12:38; Start 10/27/16 at 10:00; Stop 10/27/16 at 12:01; Status DC Albuterol/ Ipratropium (Duoneb) 3 ml RTQID NEB Last administered on 11/01/16 15 :33; Start 10/27/16 at 12:00 Heparin Sodium (Porcine) (Heparin Sodium) 10,000 unit STK-MED ONCE .ROUTE ; Start 10/27/16 at 10:01; Stop 10/27/16 at 10:02; Status DC Lidocaine/Sodium Bicarbonate 20 ml 20 ml STK-MED ONCE IJ ; Start 10/27/16 at 10: 01; Stop 10/27/16 at 10:02; Status DC Heparin Sodium/ Sodium Chloride 500 ml @ As Directed STK-MED ONCE .ROUTE ; Start 10/27/16 at 10:01; Stop 10/27/16 at 10:02; Status DC Lidocaine/Sodium Bicarbonate (Buffered Lidocaine 1%) 3 ml 1X ONCE IJ Last administered on 10/27/16 12:16; Start 10/27/16 at 10:15; Stop 10/27/16 at 10:16 ; Status DC Heparin Sodium/ Sodium Chloride 60 unit 1X ONCE IV Last administered on 12:14; Start 10/27/16 at 10:15; Stop 10/27/16 at 10:16; Status DC Heparin Sodium (Porcine) (Heparin Sodium) 2,500 unit 1X ONCE INT CAT Last administered on 10/27/16 12:16; Start 10/27/16 at 10:15; Stop 10/27/16 at 10:16 ; Status DC Aspirin (Krystian Aspirin) 325 mg DAILY PO Last administered on 11/01/16 08:25; Start 10/27/16 at 12:00 Vitamin D (Vitamin D3) 1,000 unit DAILY PO Last administered on 11/01/16 08:26 ; Start 10/27/16 at 12:00 Diltiazem HCl (Cardizem Cd) 300 mg DAILY PO Last administered on 11/01/16 08:26 ; Start 10/27/16 at 12:00 Furosemide (Lasix) 40 mg [id number] PO Last administered on 10/28/16 17:13; Start 10/27/16 at 12:00; Stop 10/29/16 at 07:12; Status DC Insulin Aspart (Novolog) 11 units TIDWMEALS SQ Last administered on 11/01/16 12 :33; Start 10/27/16 at 12:00 Levothyroxine Sodium (Synthroid) 125 mcg DAILY07 PO Last administered on 08:26; Start 10/27/16 at 12:00 Lisinopril (Prinivil) 40 mg DAILY PO Last administered on 10/31/16 18:02; Start 10/27/16 at 12:00 Methocarbamol (Robaxin) 500 mg PRN TID PRN PO MUSCLE SPASMS Last administered on 10/30/16 01:25; Start 10/27/16 at 11:15 Tamsulosin HCl (Flomax) 0.4 mg QHS PO Last administered on 10/31/16 20:40; Start 10/27/16 at 21:00 Albuterol Sulfate (Ventolin Neb Soln) 2.5 mg PRN Q4HRS PRN NEB SHORTNESS OF BREATH Last administered on 10/30/16 01:38; Start 10/27/16 at 11:30 Brimonidine Tartrate (Alphagan) 1 drop BID OU Last administered on 11/01/16 08: 27; Start 10/27/16 at 12:00 Artificial Tears (Artificial Tears) 1 drop PRN Q15MIN PRN OU DRY EYE; Start at 11:30 Ferrous Sulfate (Feosol) 325 mg BIDWMEALS PO Last administered on 11/01/16 18: 04; Start 10/27/16 at 12:00 Gabapentin (Neurontin) 300 mg BID PO Last administered on 11/01/16 08:27; Start 10/27/16 at 12:00 Non-Formulary Medication 1 inh QID IH ; Start 10/27/16 at 13:00; Status UNV Non-Formulary Medication 1 each TID TP ; Start 10/27/16 at 14:00; Status UNV Non-Formulary Medication 1 tab BID PO ; Start 10/27/16 at 21:00; Status UNV Potassium Chloride (Klor-Con) 10 meq [id number] PO Last administered on 08:31; Start 10/28/16 at 08:00 Atorvastatin Calcium (Lipitor) 20 mg QHS PO Last administered on 10/31/16 20:40 ; Start 10/27/16 at 21:00 Linagliptin (Tradjenta) 5 mg DAILY PO Last administered on 11/01/16 08:26; Start 10/27/16 at 12:00 Furosemide (Lasix) 60 mg 1X ONCE IVP ; Start 10/28/16 at 08:00; Stop 10/28/16 at 08:01; Status DC Sodium Bicarbonate 50 meq 50 meq Q2HR IV Last administered on 10/29/16 10:14; Start 10/29/16 at 08:00; Stop 10/29/16 at 10:01; Status DC Sodium Bicarbonate 150 meq/Sterile Water 1,150 ml @ 80 mls/hr [id number] PRN IV . Last administered on 10/29/16 16:41; Start 10/29/16 at 07:45; Stop 10/30/16 at 12:28; Status DC Sodium Chloride (Hypertonic Saline) 500 ml @ 30 mls/hr CONT PRN PRN IV see comments; Start 10/29/16 at 07:45; Stop 10/30/16 at 12:28; Status DC Acetaminophen (Tylenol) 650 mg PRN Q6HRS PRN PO PAIN Last administered on 16:52; Start 10/29/16 at 11:15 Nystatin (Nystop) 1 summer TID PRN PRN TP REDNESS; Start 10/29/16 at 11:15 Multi-Ingredient Ointment 1 summer 1 summer PRN QID PRN TP MUSCLE PAIN Last administered on 10/30/16 16:52; Start 10/29/16 at 11:15 Magnesium Sulfate/ Dextrose 50 ml @ 25 mls/hr PRN DAILY PRN IV for Mag < 1.7 on am labs; Start 10/30/16 at 09:45 Dobutamine HCl/ Dextrose 250 ml @ 0 mls/hr CONT PRN IV SEE I/O RECORD Last administered on 11/01/16 18:04; Start 10/30/16 at 11:00 Pantoprazole Sodium 40 mg 40 mg DAILYAC PO Last administered on 11/01/16 08:26 ; Start 10/31/16 at 07:30 Iron Sucrose 200 mg/Sodium Chloride 110 ml @ 55 mls/hr 3X/WEEK IV Last administered on 11/01/16 09:00; Start 11/01/16 at 09:00; Stop 11/10/16 at 10:59 Sodium Chloride (Hypertonic Saline) 500 ml @ 30 mls/hr CONT PRN PRN IV see comments Last administered on 11/01/16 03:29; Start 10/31/16 at 09:00 Acetaminophen/ Hydrocodone Bitart (Lortab 5/325) 1 tab PRN Q4HRS PRN PO PAIN Last administered on 11/01/16 10:20; Start 10/31/16 at 20:30 Furosemide (Lasix) 20 mg 1X ONCE IVP ; Start 11/01/16 at 15:45; Stop 11/01/16 at 16:05; Status DC Active Scripts Active Reported Tamsulosin Hcl 0.4 Mg Cap.er.24h 0.4 Mg PO QHS Onglyza (Saxagliptin Hcl) 5 Mg Tablet 1 Tab PO DAILY Crestor (Rosuvastatin Calcium) 10 Mg Tablet 0.5 Tab PO DAILY Potassium Chloride 20 Meq Tablet.er 10 Meq PO DAILY Omeprazole 20 Mg Tablet.dr 1 Tab PO BID Nitrostat (Nitroglycerin) 0.3 Mg Tab.subl 0.3 Mg SL PRN Q5MIN PRN Methocarbamol 500 Mg Tablet 500 Mg PO PRN TID PRN Bengay Ultra Strength (Menthol) 1 Each Adh..patch 1 Each TP TID Lisinopril 40 Mg Tablet 1 Tab PO DAILY Levothyroxine Sodium 125 Mcg Tablet 1 Tab PO DAILY Novolog Flexpen (Insulin Aspart) 100 Unit/1 Ml Insuln.pen 11 Unit SQ TIDWMEALS Gabapentin 300 Mg Capsule 300 Mg PO TID Furosemide 40 Mg Tablet 40 Mg PO BID Ferrous Sulfate 324 Mg Tablet.dr 324 Mg PO BID Cardizem Cd (Diltiazem Hcl) 300 Mg Cap.er.24h 300 Mg PO DAILY Vitamin D3 (Cholecalciferol (Vitamin D3)) 1,000 Unit Tablet 1 Tab PO DAILY Refresh Optive Advanced Drops (Carboxymethyl/Glycerin/Poly80) 10 Ml Drops 1 Drop OP PRN QID PRN Alphagan P (Brimonidine Tartrate) 5 Ml Drops 1 Drop EACHEYE BID Aspirin 325 Mg Tablet 1 Tab PO DAILY Albuterol Sulfate Conc Neb Soln (Albuterol Sulfate) 2.5 Mg/0.5 Ml Vial.neb 1 Vial NEB Q4HRS Combivent Respimat Inhal (Ipratropium/Albuterol Sulfate) 4 Gm Aer.w.adap 1 Inh IH QID Vitals/I & O Vital Sign - Last 24 Hours 10/31/16 10/31/16 10/31/16 10/31/16 19:00 19:44 19:57 20:03 Temp 98.7 98.7 Pulse 71 75 Resp 18 20 B/P 101/43 106/48 Pulse Ox 92 94 92 O2 Delivery Nasal Cannula Nasal Cannula Nasal Cannula Nasal Cannula O2 Flow Rate 5.0 5.0 5.0 5.0 10/31/16 10/31/16 10/31/16 10/31/16 20:41 21:07 21:34 21:41 Pulse 76 Resp 20 18 B/P 96/52 Pulse Ox 92 95 96 O2 Delivery Nasal Cannula BiPAP/CPAP BiPAP/CPAP O2 Flow Rate 5.0 10/31/16 10/31/16 10/31/16 11/01/16 22:03 23:09 23:41 00:03 Temp 97.9 97.9 Pulse 71 71 71 Resp 18 20 18 B/P 81/46 92/44 92/52 Pulse Ox 96 92 94 95 O2 Delivery BiPAP/CPAP BiPAP/CPAP BiPAP/CPAP BiPAP/CPAP 11/01/16 11/01/16 11/01/16 11/01/16 00:04 01:03 01:20 02:00 Pulse 71 72 Resp 20 20 B/P 84/49 80/49 Pulse Ox 93 94 93 O2 Delivery Nasal Cannula BiPAP/CPAP BiPAP/CPAP BiPAP/CPAP O2 Flow Rate 5.0 11/01/16 11/01/16 11/01/16 11/01/16 03:11 04:00 04:19 05:02 Temp 98.7 98.7 Pulse 76 67 71 Resp 22 20 20 B/P 88/57 113/55 96/51 Pulse Ox 93 92 92 O2 Delivery Nasal Cannula Nasal Cannula Nasal Cannula Nasal Cannula O2 Flow Rate 4.0 4.0 4.0 4.0 11/01/16 11/01/16 11/01/16 11/01/16 06:04 07:00 08:00 08:00 Temp 98.9 98.9 Pulse 72 72 71 Resp 20 23 28 B/P 108/50 116/54 112/48 Pulse Ox 92 95 93 O2 Delivery Nasal Cannula BiPAP/CPAP Nasal Cannula Nasal Cannula O2 Flow Rate 4.0 4.0 4.0 11/01/16 11/01/16 11/01/16 11/01/16 08:18 08:26 09:00 10:00 Pulse 76 71 71 Resp 32 25 B/P 112/48 96/48 81/47 Pulse Ox 91 88 91 O2 Delivery Nasal Cannula Nasal Cannula Nasal Cannula O2 Flow Rate 5.0 4.0 4.0 11/01/16 11/01/16 11/01/16 11/01/16 10:20 11:00 11:20 12:00 Temp 98.6 98.6 Pulse 71 71 Resp 25 30 B/P 93/47 84/43 Pulse Ox 91 92 92 92 O2 Delivery Nasal Cannula Nasal Cannula Nasal Cannula Nasal Cannula O2 Flow Rate 4.0 4.0 4.0 4.0 11/01/16 11/01/16 11/01/16 11/01/16 12:00 12:12 13:00 13:39 Temp 97.6 97.6 Pulse 71 71 Resp 21 21 B/P 80/49 80/49 Pulse Ox 91 91 O2 Delivery Nasal Cannula Nasal Cannula Nasal Cannula O2 Flow Rate 4.0 4.0 4.0 11/01/16 11/01/16 11/01/16 11/01/16 13:54 14:00 14:39 15:00 Temp 97.7 98.1 97.7 98.1 Pulse 71 71 71 71 Resp 20 21 18 18 B/P 82/49 76/47 78/45 78/45 Pulse Ox 93 94 O2 Delivery Nasal Cannula Nasal Cannula O2 Flow Rate 4.0 4.0 11/01/16 11/01/16 11/01/16 11/01/16 15:37 15:39 16:00 16:00 Temp 96.5 96.5 96.5 96.5 Pulse 75 75 Resp 22 22 B/P 86/51 86/51 Pulse Ox 93 94 O2 Delivery BiPAP/CPAP Bi-pap BiPAP/CPAP 11/01/16 11/01/16 17:00 18:00 Pulse 72 71 Resp 21 35 B/P 102/52 95/51 Pulse Ox 93 94 O2 Delivery Nasal Cannula Nasal Cannula O2 Flow Rate 4.0 4.0 Intake and Output 10/31/16 10/31/16 11/01/16 15:00 23:00 07:00 Intake Total 550 ml 350 ml 633 ml Output Total 670 ml 400 ml 1300 ml Balance -120 ml -50 ml -667 ml WENDIE ANGEL MD November 01, 2016 18:44
--- NOTE | 2016-11-01 18:45 | PDOC ---
MODERATE SEDATION ASSESSMENT RISKS/ALTERNATIVES Risks/Alternatives Risks and alternatives of this type of sedation and procedure discussed with: RISK/ALTERNATIVES: Patient H & P ON CHART H & P H & P on chart and reviewed for co-morbid conditions and appropriate labs. H&P ON CHART: Yes STATUS PREG STATUS ASSESSED: Yes MEDS/ALLERGIES REVIEWED Meds/Allergies Reviewed Medications and Allergies including time and route of recently administered narcotics and sedatives. MEDS/ALLERGIES REVIEWED: Yes ASA RATING ASA RATING: II AIRWAY ASSESSMENT Airway Assessment Airway patency, oral function limitations, presence of caps, crowns, dentures, partials, and ability to extend neck assessed. AIRWAY ASSESSMENT: Yes MALLAMPATI SCORE MALLAMPATI SCORE: II PRE-SEDATION ASSESSMENT PRE-SEDATION ASSESSMENT: Yes WENDIE ANGEL MD November 01, 2016 18:45
[2016-11-01] MEDS: TAMSULOSIN 0.4 MG CAP.ER.24H. PO SCH (21:15)
[2016-11-01] MEDS: ATORVASTATIN CALCIUM 20 MG TABLET PO SCH (21:15)
[2016-11-02] VITALS (23 sets, daily range): BP systolic 92–140; BP diastolic 47–80
[2016-11-02] MEDS: METHOCARBAMOL 500 MG TABLET PO PRN (00:33)
[2016-11-02] MEDS: HYDROcodone/APAP 5/325MG 1 TAB TABLET PO PRN ×2 (00:34→20:27)
[2016-11-02] MEDS: LEVOTHYROXINE 125 MCG TABLET PO SCH (07:00)
[2016-11-02] MEDS: PANTOPRAZOLE 40 MG TABLET.DR. PO SCH (07:30)
[2016-11-02 07:32] LABS: ALBUMIN 2.4 g/dL (3.4-5.0); CALCIUM 7.5 mg/dL (8.5-10.1); CREATININE 1.1 mg/dL (0.7-1.3); GFR 65.8; MAGNESIUM 1.7 mg/dL (1.8-2.4); POTASSIUM 4.6 mmol/L (3.5-5.1)
[2016-11-02] MEDS: POTASSIUM CHLORIDE 10 MEQ TABLET.ER. PO SCH (08:00)
[2016-11-02] MEDS: INSULIN ASPART 300 UNITS/3 ML INSULN.PEN SQ SCH ×3 (08:00→17:30)
[2016-11-02] MEDS: FERROUS SULFATE 325 MG TABLET. PO SCH ×2 (08:00→17:32)
[2016-11-02] MEDS: IPRATRPIUM/ALBUTEROL 0.5/2.5MG 3 ML NEBU. NEB SCH ×4 (08:03→20:13)
--- NOTE | 2016-11-02 08:04 | PDOC ---
G I PROGRESS NOTE Subjective No GI complaints. Cath postponed to today. Physical Exam Lungs clear anteriorly. RRR Abdomen soft, not tender nor distended. Review of Relevant I have reviewed the following items dorian (where applicable) has been applied. Labs Laboratory Tests Test 10/31/16 08:25 10/31/16 11:55 10/31/16 13:02 10/31/16 16:00 Glucose (Fingerstick) 143 mg/dL (70-99) 152 mg/dL (70-99) Sodium Level 124 mmol/L (136-145) 126 mmol/L (136-145) Test 10/31/16 17:34 10/31/16 19:53 10/31/16 20:44 11/01/16 00:15 Glucose (Fingerstick) 160 mg/dL (70-99) 123 mg/dL (70-99) Sodium Level 127 mmol/L (136-145) 128 mmol/L (136-145) Test 11/01/16 04:20 11/01/16 08:05 11/01/16 11:48 11/01/16 11:58 White Blood Count 10.3 x10^3/uL (4.0-11.0) Red Blood Count 3.43 x10^6/uL (4.30-5.70) Hemoglobin 8.8 g/dL (13.0-17.5) Hematocrit 27.2 % (39.0-53.0) Mean Corpuscular Volume 79 fL (79-100) Mean Corpuscular Hemoglobin 26 pg (25-35) Mean Corpuscular Hemoglobin Concent 32 g/dL (31-37) Red Cell Distribution Width 19.1 % (11.5-14.5) Platelet Count 183 x10^3/uL (140-400) Neutrophils (%) (Auto) 81 % (31-73) Lymphocytes (%) (Auto) 12 % (24-48) Monocytes (%) (Auto) 6 % (0-9) Eosinophils (%) (Auto) 0 % (0-3) Basophils (%) (Auto) 0 % (0-3) Neutrophils # (Auto) 8.3 x10^3uL (1.8-7.7) Lymphocytes # (Auto) 1.3 x10^3/uL (1.0-4.8) Monocytes # (Auto) 0.6 x10^3/uL (0.0-1.1) Eosinophils # (Auto) 0.0 x10^3/uL (0.0-0.7) Basophils # (Auto) 0.0 x10^3/uL (0.0-0.2) Sodium Level 129 mmol/L (136-145) 132 mmol/L (136-145) Potassium Level 4.4 mmol/L (3.5-5.1) Chloride Level 96 mmol/L (98-107) Carbon Dioxide Level 28 mmol/L (21-32) Anion Gap 5 (6-14) Blood Urea Nitrogen 36 mg/dL (8-26) Creatinine 1.3 mg/dL (0.7-1.3) Estimated GFR (Cockcroft-Gault) 54.3 Glucose Level 135 mg/dL (70-99) Lactic Acid Level 1.1 mmol/L (0.4-2.0) Calcium Level 7.7 mg/dL (8.5-10.1) Phosphorus Level 3.0 mg/dL (2.6-4.7) Magnesium Level 2.0 mg/dL (1.8-2.4) Albumin 2.4 g/dL (3.4-5.0) Glucose (Fingerstick) 137 mg/dL (70-99) 182 mg/dL (70-99) O2 Saturation 90 % (92-99) Arterial Blood pH 7.49 (7.35-7.45) Arterial Blood pCO2 at Patient Temp 29 mmHg (35-46) Arterial Blood pO2 at Patient Temp 59 mmHg (65-108) Arterial Blood HCO3 21 mmol/L (21-28) Arterial Blood Base Excess -1 mmol/L (-3-3) FiO2 36 Test 11/01/16 12:10 11/01/16 16:35 11/01/16 21:21 11/02/16 05:00 Sodium Level 129 mmol/L (136-145) 130 mmol/L (136-145) Uric Acid 7.0 mg/dL (3.5-7.2) Glucose (Fingerstick) 224 mg/dL (70-99) 127 mg/dL (70-99) Potassium Level 4.6 mmol/L (3.5-5.1) Chloride Level 96 mmol/L (98-107) Carbon Dioxide Level 26 mmol/L (21-32) Anion Gap 8 (6-14) Blood Urea Nitrogen 29 mg/dL (8-26) Creatinine 1.1 mg/dL (0.7-1.3) Estimated GFR (Cockcroft-Gault) 65.8 Glucose Level 140 mg/dL (70-99) Calcium Level 7.5 mg/dL (8.5-10.1) Phosphorus Level 3.0 mg/dL (2.6-4.7) Magnesium Level 1.7 mg/dL (1.8-2.4) Albumin 2.4 g/dL (3.4-5.0) Laboratory Tests Test 11/01/16 08:05 11/01/16 11:48 11/01/16 11:58 11/01/16 12:10 Sodium Level 132 mmol/L (136-145) 129 mmol/L (136-145) Glucose (Fingerstick) 137 mg/dL (70-99) 182 mg/dL (70-99) O2 Saturation 90 % (92-99) Arterial Blood pH 7.49 (7.35-7.45) Arterial Blood pCO2 at Patient Temp 29 mmHg (35-46) Arterial Blood pO2 at Patient Temp 59 mmHg (65-108) Arterial Blood HCO3 21 mmol/L (21-28) Arterial Blood Base Excess -1 mmol/L (-3-3) FiO2 36 Uric Acid 7.0 mg/dL (3.5-7.2) Test 11/01/16 16:35 11/01/16 21:21 11/02/16 05:00 Glucose (Fingerstick) 224 mg/dL (70-99) 127 mg/dL (70-99) Sodium Level 130 mmol/L (136-145) Potassium Level 4.6 mmol/L (3.5-5.1) Chloride Level 96 mmol/L (98-107) Carbon Dioxide Level 26 mmol/L (21-32) Anion Gap 8 (6-14) Blood Urea Nitrogen 29 mg/dL (8-26) Creatinine 1.1 mg/dL (0.7-1.3) Estimated GFR (Cockcroft-Gault) 65.8 Glucose Level 140 mg/dL (70-99) Calcium Level 7.5 mg/dL (8.5-10.1) Phosphorus Level 3.0 mg/dL (2.6-4.7) Magnesium Level 1.7 mg/dL (1.8-2.4) Albumin 2.4 g/dL (3.4-5.0) Microbiology 10/27/16 Urine Culture - Final, Complete 10/27/16 Urine Culture Result 1 (JANEL) - Final, Complete This morning's labs pending. Medications Current Medications Pantoprazole Sodium (Protonix Vial) 40 mg DAILYAC IVP Last administered on 08:32; Start 10/26/16 at 17:00; Stop 10/30/16 at 11:57; Status DC Dobutamine HCl/ Dextrose 250 ml @ 0 mls/hr CONT PRN IV SEE I/O RECORD Last administered on 10/29/16 03:02; Start 10/26/16 at 17:00; Stop 10/30/16 at 10:57 ; Status DC Furosemide (Lasix) 60 mg 1X ONCE IVP Last administered on 10/27/16 08:15; Start 10/27/16 at 08:30; Stop 10/27/16 at 08:31; Status DC Sodium Bicarbonate 50 meq Q2HR IV Last administered on 10/27/16 12:38; Start 10/27/16 at 10:00; Stop 10/27/16 at 12:01; Status DC Albuterol/ Ipratropium (Duoneb) 3 ml RTQID NEB Last administered on 11/01/16 20 :06; Start 10/27/16 at 12:00 Heparin Sodium (Porcine) (Heparin Sodium) 10,000 unit STK-MED ONCE .ROUTE ; Start 10/27/16 at 10:01; Stop 10/27/16 at 10:02; Status DC Lidocaine/Sodium Bicarbonate (Buffered Lidocaine 1%) 20 ml STK-MED ONCE IJ ; Start 10/27/16 at 10:01; Stop 10/27/16 at 10:02; Status DC Heparin Sodium/ Sodium Chloride 500 ml @ As Directed STK-MED ONCE .ROUTE ; Start 10/27/16 at 10:01; Stop 10/27/16 at 10:02; Status DC Lidocaine/Sodium Bicarbonate (Buffered Lidocaine 1%) 3 ml 1X ONCE IJ Last administered on 10/27/16 12:16; Start 10/27/16 at 10:15; Stop 10/27/16 at 10:16 ; Status DC Heparin Sodium/ Sodium Chloride 60 unit 1X ONCE IV Last administered on 12:14; Start 10/27/16 at 10:15; Stop 10/27/16 at 10:16; Status DC Heparin Sodium (Porcine) (Heparin Sodium) 2,500 unit 1X ONCE INT CAT Last administered on 10/27/16 12:16; Start 10/27/16 at 10:15; Stop 10/27/16 at 10:16 ; Status DC Aspirin (Krystian Aspirin) 325 mg DAILY PO Last administered on 11/01/16 08:25; Start 10/27/16 at 12:00 Vitamin D (Vitamin D3) 1,000 unit DAILY PO Last administered on 11/01/16 08:26 ; Start 10/27/16 at 12:00 Diltiazem HCl (Cardizem Cd) 300 mg DAILY PO Last administered on 11/01/16 08:26 ; Start 10/27/16 at 12:00 Furosemide (Lasix) 40 mg [id number] PO Last administered on 10/28/16 17:13; Start 10/27/16 at 12:00; Stop 10/29/16 at 07:12; Status DC Insulin Aspart (Novolog) 11 units TIDWMEALS SQ Last administered on 11/01/16 12 :33; Start 10/27/16 at 12:00 Levothyroxine Sodium (Synthroid) 125 mcg DAILY07 PO Last administered on 08:26; Start 10/27/16 at 12:00 Lisinopril (Prinivil) 40 mg DAILY PO Last administered on 10/31/16 18:02; Start 10/27/16 at 12:00 Methocarbamol (Robaxin) 500 mg PRN TID PRN PO MUSCLE SPASMS Last administered on 11/02/16 00:33; Start 10/27/16 at 11:15 Tamsulosin HCl (Flomax) 0.4 mg QHS PO Last administered on 11/01/16 21:15; Start 10/27/16 at 21:00 Albuterol Sulfate (Ventolin Neb Soln) 2.5 mg PRN Q4HRS PRN NEB SHORTNESS OF BREATH Last administered on 10/30/16 01:38; Start 10/27/16 at 11:30 Brimonidine Tartrate (Alphagan) 1 drop BID OU Last administered on 11/01/16 21: 16; Start 10/27/16 at 12:00 Artificial Tears (Artificial Tears) 1 drop PRN Q15MIN PRN OU DRY EYE; Start at 11:30 Ferrous Sulfate (Feosol) 325 mg BIDWMEALS PO Last administered on 11/01/16 18: 04; Start 10/27/16 at 12:00 Gabapentin (Neurontin) 300 mg BID PO Last administered on 11/01/16 21:15; Start 10/27/16 at 12:00 Non-Formulary Medication 1 inh QID IH ; Start 10/27/16 at 13:00; Status UNV Non-Formulary Medication 1 each TID TP ; Start 10/27/16 at 14:00; Status UNV Non-Formulary Medication 1 tab BID PO ; Start 10/27/16 at 21:00; Status UNV Potassium Chloride (Klor-Con) 10 meq DAILYWBKFT PO Last administered on 08:31; Start 10/28/16 at 08:00 Atorvastatin Calcium (Lipitor) 20 mg QHS PO Last administered on 11/01/16 21:15 ; Start 10/27/16 at 21:00 Linagliptin (Tradjenta) 5 mg DAILY PO Last administered on 11/01/16 08:26; Start 10/27/16 at 12:00 Furosemide (Lasix) 60 mg 1X ONCE IVP ; Start 10/28/16 at 08:00; Stop 10/28/16 at 08:01; Status DC Sodium Bicarbonate 50 meq Q2HR IV Last administered on 10/29/16 10:14; Start 10/29/16 at 08:00; Stop 10/29/16 at 10:01; Status DC Sodium Bicarbonate 150 meq/Sterile Water 1,150 ml @ 80 mls/hr [id number] PRN IV . Last administered on 10/29/16 16:41; Start 10/29/16 at 07:45; Stop 10/30/16 at 12:28; Status DC Sodium Chloride 500 ml @ 30 mls/hr CONT PRN PRN IV see comments; Start at 07:45; Stop 10/30/16 at 12:28; Status DC Acetaminophen (Tylenol) 650 mg PRN Q6HRS PRN PO PAIN Last administered on 16:52; Start 10/29/16 at 11:15 Nystatin (Nystop) 1 summer TID PRN PRN TP REDNESS; Start 10/29/16 at 11:15 Multi-Ingredient Ointment (Analgesic [place]) 1 summer PRN QID PRN TP MUSCLE PAIN Last administered on 10/30/16 16:52; Start 10/29/16 at 11:15 Magnesium Sulfate/ Dextrose 50 ml @ 25 mls/hr PRN DAILY PRN IV for Mag < 1.7 on am labs; Start 10/30/16 at 09:45 Dobutamine HCl/ Dextrose 250 ml @ 0 mls/hr CONT PRN IV SEE I/O RECORD Last administered on 11/01/16 18:04; Start 10/30/16 at 11:00 Pantoprazole Sodium (Protonix) 40 mg DAILYAC PO Last administered on 11/01/16 08:26; Start 10/31/16 at 07:30 Iron Sucrose 200 mg/Sodium Chloride 110 ml @ 55 mls/hr 3X/WEEK IV Last administered on 11/01/16 09:00; Start 11/01/16 at 09:00; Stop 11/10/16 at 10:59 Sodium Chloride 500 ml @ 30 mls/hr CONT PRN PRN IV see comments Last administered on 11/01/16 03:29; Start 10/31/16 at 09:00 Acetaminophen/ Hydrocodone Bitart (Lortab 5/325) 1 tab PRN Q4HRS PRN PO PAIN Last administered on 11/02/16 00:34; Start 10/31/16 at 20:30 Furosemide (Lasix) 20 mg 1X ONCE IVP ; Start 11/01/16 at 15:45; Stop 11/01/16 at 16:05; Status DC Furosemide (Lasix) 20 mg 1X ONCE IVP Last administered on 11/01/16 21:15; Start 11/01/16 at 21:15; Stop 11/01/16 at 21:16; Status DC Active Scripts Active Reported Tamsulosin Hcl 0.4 Mg Cap.er.24h 0.4 Mg PO QHS Onglyza (Saxagliptin Hcl) 5 Mg Tablet 1 Tab PO DAILY Crestor (Rosuvastatin Calcium) 10 Mg Tablet 0.5 Tab PO DAILY Potassium Chloride 20 Meq Tablet.er 10 Meq PO DAILY Omeprazole 20 Mg Tablet.dr 1 Tab PO BID Nitrostat (Nitroglycerin) 0.3 Mg Tab.subl 0.3 Mg SL PRN Q5MIN PRN Methocarbamol 500 Mg Tablet 500 Mg PO PRN TID PRN [place] Ultra Strength (Menthol) 1 Each Adh..patch 1 Each TP TID Lisinopril 40 Mg Tablet 1 Tab PO DAILY Levothyroxine Sodium 125 Mcg Tablet 1 Tab PO DAILY Novolog Flexpen (Insulin Aspart) 100 Unit/1 Ml Insuln.pen 11 Unit SQ TIDWMEALS Gabapentin 300 Mg Capsule 300 Mg PO TID Furosemide 40 Mg Tablet 40 Mg PO BID Ferrous Sulfate 324 Mg Tablet.dr 324 Mg PO BID Cardizem Cd (Diltiazem Hcl) 300 Mg Cap.er.24h 300 Mg PO DAILY Vitamin D3 (Cholecalciferol (Vitamin D3)) 1,000 Unit Tablet 1 Tab PO DAILY Refresh Optive Advanced Drops (Carboxymethyl/Glycerin/Poly80) 10 Ml Drops 1 Drop OP PRN QID PRN Alphagan P (Brimonidine Tartrate) 5 Ml Drops 1 Drop EACHEYE BID Aspirin 325 Mg Tablet 1 Tab PO DAILY Albuterol Sulfate Conc Neb Soln (Albuterol Sulfate) 2.5 Mg/0.5 Ml Vial.neb 1 Vial NEB Q4HRS Combivent Respimat Inhal (Ipratropium/Albuterol Sulfate) 4 Gm Aer.w.adap 1 Inh IH QID Vitals/I & O Vital Sign - Last 24 Hours 11/01/16 11/01/16 11/01/16 11/01/16 08:18 08:26 09:00 10:00 Pulse 76 71 71 Resp 32 25 B/P (MAP) 112/48 96/48 (64) 81/47 (58) Pulse Ox 91 88 91 O2 Delivery Nasal Cannula Nasal Cannula Nasal Cannula O2 Flow Rate 5.0 4.0 4.0 11/01/16 11/01/16 11/01/16 11/01/16 10:20 11:00 11:20 12:00 Temp 98.6 98.6 Pulse 71 71 Resp 25 30 B/P (MAP) 93/47 (62) 84/43 (57) Pulse Ox 91 92 92 O2 Delivery Nasal Cannula Nasal Cannula Nasal Cannula O2 Flow Rate 4.0 4.0 4.0 4.0 11/01/16 11/01/16 11/01/16 11/01/16 12:00 12:12 13:00 13:39 Temp 97.6 97.6 Pulse 71 71 Resp 21 21 B/P (MAP) 80/49 (59) 80/49 Pulse Ox 91 91 O2 Delivery Nasal Cannula Nasal Cannula Nasal Cannula O2 Flow Rate 4.0 4.0 4.0 11/01/16 11/01/16 11/01/16 11/01/16 13:54 14:00 14:39 15:00 Temp 97.7 98.1 97.7 98.1 Pulse 71 71 71 71 Resp 20 21 18 18 B/P (MAP) 82/49 76/47 (57) 78/45 78/45 (56) Pulse Ox 93 94 O2 Delivery Nasal Cannula Nasal Cannula O2 Flow Rate 4.0 4.0 11/01/16 11/01/16 11/01/16 11/01/16 15:37 15:39 16:00 16:00 Temp 96.5 96.5 96.5 96.5 Pulse 75 75 Resp 22 22 B/P (MAP) 86/51 86/51 (63) Pulse Ox 93 94 O2 Delivery BiPAP/CPAP Bi-pap BiPAP/CPAP 11/01/16 11/01/16 11/01/16 11/01/16 17:00 18:00 19:00 20:00 Temp 97.0 97.0 Pulse 72 71 70 70 Resp 21 35 26 33 B/P (MAP) 102/52 (69) 95/51 (66) 83/50 (61) 105/53 (70) Pulse Ox 93 94 95 90 O2 Delivery Nasal Cannula Nasal Cannula Nasal Cannula Nasal Cannula O2 Flow Rate 4.0 4.0 5.0 5.0 11/01/16 11/01/16 11/01/16 11/01/16 20:00 20:06 21:00 21:00 Pulse 74 Resp 32 B/P (MAP) 111/55 (73) Pulse Ox 93 91 93 O2 Delivery Nasal Cannula Nasal Cannula BiPAP/CPAP BiPAP/CPAP O2 Flow Rate 5.0 5.0 11/01/16 11/01/16 11/01/164/17 22:00 23:00 23:00 00:00 Temp 97.3 97.3 Pulse 70 76 76 Resp 26 28 25 B/P (MAP) 104/51 (68) 114/60 (78) 109/60 (76) Pulse Ox 90 91 91 93 O2 Delivery BiPAP/CPAP BiPAP/CPAP BiPAP/CPAP BiPAP/CPAP 11/02/16 11/02/16 11/02/16 11/02/16 00:00 00:34 01:00 01:34 Pulse 76 Resp 28 20 24 B/P (MAP) 104/51 (68) Pulse Ox 92 95 94 O2 Delivery Bi-pap BiPAP/CPAP BiPAP/CPAP BiPAP/CPAP 11/02/16 11/02/16 11/02/16 11/02/16 02:00 03:02 03:05 07:00 Pulse 67 72 75 Resp 18 17 26 B/P (MAP) 95/51 (66) 99/47 (64) 119/58 (78) Pulse Ox 93 95 95 96 O2 Delivery BiPAP/CPAP BiPAP/CPAP BiPAP/CPAP BiPAP/CPAP Intake and Output 11/01/16 11/01/16 11/02/16 14:59 22:59 06:59 Intake Total 640 ml 583 ml 120 ml Output Total 480 ml 610 ml 495 ml Balance 160 ml -27 ml -375 ml Problem List Problems Medical Problems: (1) CHF exacerbation Status: Acute Assessment Chronic NEHEMIAH, stable. Plan of Care: Continue current Tx, NIKKI Arcos MD November 02, 2016 08:04
[2016-11-02 08:11] LABS: BASO % 0 % (0-3); EOS % 1 % (0-3); HEMATOCRIT 28.9 % (39.0-53.0); HEMOGLOBIN 9.4 g/dL (13.0-17.5); LYMPH # 1.3 x10^3/uL (1.0-4.8); LYMPH % 12 % (24-48); MEAN CORPUSCULAR HEMOGLOBIN 26 pg (25-35); MEAN CORPUSCULAR HGB CONC 33 g/dL (31-37); MEAN CORPUSCULAR VOLUME 80 fL (79-100); MONO % 6 % (0-9); NEUT % 81 % (31-73); PLATELET COUNT 216 x10^3/uL (140-400); RED CELL DISTRIBUTION WIDTH 18.5 % (11.5-14.5); WHITE BLOOD COUNT 11.3 x10^3/uL (4.0-11.0)
[2016-11-02] MEDS: LINAGLIPTIN 5 MG TABLET PO SCH (09:00)
[2016-11-02] MEDS: LISINOPRIL 40 MG TABLET. PO SCH (09:00)
[2016-11-02] MEDS: CHOLECALCIFEROL (VITAMIN D3) 1,000 UNIT TABLET PO SCH (09:00)
[2016-11-02] MEDS: GABAPENTIN 300 MG CAPSULE. PO SCH ×2 (09:00→20:27)
[2016-11-02] MEDS: ASPIRIN 325 MG TABLET PO SCH (09:00)
[2016-11-02] MEDS: BRIMONIDINE 0.2% OPHTH SOLUTION 5ML BOTTLE. OU SCH ×2 (09:00→20:26)
--- NOTE | 2016-11-02 09:39 | PDOC ---
SUBJECTIVE ROS BELINDA/ ? CKD III Doing OK overall, Back on BiPAP. for [facility] later today CVS: no Orthopnea, no CP RESP: + SOB, ? RAPHAEL GI: no Nausea, no Vomiting : no Dysuria, no Urgency OBJECTIVE Vital Signs Vital Signs Date Time Temp Pulse Resp B/P (MAP) Pulse Ox O2 Delivery O2 Flow Rate FiO2 11/02/16 08:01 98 BiPAP/CPAP 11/02/16 08:00 99.2 72 21 130/65 (86) 99.2 11/01/16 20:06 5.0 I & 0 Intake and Output 11/02/16 06:59 Intake Total 1343 ml Output Total 1585 ml Balance -242 ml Intake Oral 1000 ml IV Total 343 ml Output Urine Total 1585 ml PHYSICAL EXAM Physical Exam General Appearance: Awake Alert Oriented x 3 In no resp Distress currently - but remains on biPAP Eyes: VIsion Unchanged Conjunctiva Normal EN: No EN Drainage Mucous Memb. dryish Neck: no JVD min JVP Supple no Thyromegaly CVS: S1 S2 no audible Murmur No Gallop No Rub no Edema Resp: no Rales no wheezing no Acc. Muscle use GI: BS +ve NO Bruit Non Tender Non Distended : no CVA tenderness; no Suprapubic Tenderness Assessment & Plan ARF: Resolved Known CKD III with Creat ~ 1.9ish at [facility] and now much better. CmyoPahty with ^ed BNP (no CHF on CXR per report) - now on Dobutamine ? CAD - plans for [facility] so will start gentle IVF and NAC Low Na - better after starting 3% ; watch off of same fo r now. PO intake is poor - ? Need for TPN Anemia: IV Iron as ordered HyperUricemia - improved with vol repletion; Lowish mag - Repalce 1 gm hypoAlbuminemia - min Proteinuria - suspect due to Poor PO intake. Discussed Plan of Care and prognosis etc. at length with pt and daughter COMMENT/RELEVANT DATA Meds Current Medications Medications (Trade) Dose Ordered Sig/Jcarlos Start Time Stop Time Status Last Admin Dose Admin Acetaminophen (Tylenol) 650 mg PRN Q6HRS PRN 10/29/16 11:15 10/30/16 16:52 650 MG Acetaminophen/ Hydrocodone Bitart (Lortab 5/325) 1 tab PRN Q4HRS PRN 10/31/16 20:30 11/02/16 00:34 1 TAB Albuterol Sulfate (Ventolin Neb Soln) 2.5 mg PRN Q4HRS PRN 10/27/16 11:30 10/30/16 01:38 2.5 MG Albuterol/ Ipratropium (Duoneb) 3 ml RTQID 10/27/16 12:00 11/02/16 08:03 3 ML Artificial Tears (Artificial Tears) 1 drop PRN Q15MIN PRN 10/27/16 11:30 Aspirin (Krystian Aspirin) 325 mg DAILY 10/27/16 12:00 11/01/16 08:25 325 MG Atorvastatin Calcium (Lipitor) 20 mg QHS 10/27/16 21:00 11/01/16 21:15 20 MG Brimonidine Tartrate (Alphagan) 1 drop BID 10/27/16 12:00 11/01/16 21:16 1 DROP Diltiazem HCl (Cardizem Cd) 300 mg DAILY 10/27/16 12:00 11/01/16 08:26 300 MG Dobutamine HCl/ Dextrose 250 ml @ 0 mls/hr CONT PRN 10/30/16 11:00 11/01/16 18:04 2.3 MLS/HR Ferrous Sulfate (Feosol) 325 mg BIDWMEALS 10/27/16 12:00 11/01/16 18:04 325 MG Furosemide (Lasix) 20 mg 1X ONCE 11/01/16 21:15 11/01/16 21:16 DC 11/01/16 21:15 20 MG Gabapentin (Neurontin) 300 mg BID 10/27/16 12:00 11/01/16 21:15 300 MG Heparin Sodium (Porcine) (Heparin Sodium) 2,500 unit 1X ONCE 10/27/16 10:15 10/27/16 10:16 DC 10/27/16 12:16 2,800 UNIT Heparin Sodium/ Sodium Chloride 60 unit 1X ONCE 10/27/16 10:15 10/27/16 10:16 DC 10/27/16 12:14 60 UNIT Insulin Aspart (Novolog) 11 units TIDWMEALS 10/27/16 12:00 11/01/16 12:33 11 UNITS Iron Sucrose 200 mg/Sodium Chloride 110 ml @ 55 mls/hr 3X/WEEK 11/01/16 09:00 11/10/16 10:59 11/01/16 09:00 55 MLS/HR Levothyroxine Sodium (Synthroid) 125 mcg DAILY07 10/27/16 12:00 11/01/16 08:26 125 MCG Lidocaine/Sodium Bicarbonate (Buffered Lidocaine 1%) 3 ml 1X ONCE 10/27/16 10:15 10/27/16 10:16 DC 10/27/16 12:16 3 ML Linagliptin (Tradjenta) 5 mg DAILY 10/27/16 12:00 11/01/16 08:26 5 MG Lisinopril (Prinivil) 40 mg DAILY 10/27/16 12:00 10/31/16 18:02 40 MG Magnesium Sulfate/ Dextrose 50 ml @ 25 mls/hr PRN DAILY PRN 10/30/16 09:45 Methocarbamol (Robaxin) 500 mg PRN TID PRN 10/27/16 11:15 11/02/16 00:33 500 MG Multi-Ingredient Ointment (Analgesic [place]) 1 summer PRN QID PRN 10/29/16 11:15 10/30/16 16:52 1 SUMMER Non-Formulary Medication 1 tab BID 10/27/16 21:00 UNV Nystatin (Nystop) 1 summer TID PRN PRN 10/29/16 11:15 Pantoprazole Sodium (Protonix Vial) 40 mg DAILYAC 10/26/16 17:00 10/30/16 11:57 DC 10/30/16 08:32 40 MG Pantoprazole Sodium (Protonix) 40 mg DAILYAC 10/31/16 07:30 11/01/16 08:26 40 MG Potassium Chloride (Klor-Con) 10 meq [id number] 10/28/16 08:00 10/31/16 08:31 10 MEQ Sodium Bicarbonate 150 meq/Sterile Water 1,150 ml @ 80 mls/hr [id number] PRN 10/29/16 07:45 10/30/16 12:28 DC 10/29/16 16:41 80 MLS/HR Sodium Bicarbonate 50 meq Q2HR 10/29/16 08:00 10/29/16 10:01 DC 10/29/16 10:14 50 MEQ Sodium Chloride 500 ml @ 30 mls/hr CONT PRN PRN 10/31/16 09:00 5/3/17 03:29 30 MLS/HR Tamsulosin HCl (Flomax) 0.4 mg QHS 10/27/16 21:00 11/01/16 21:15 0.4 MG Vitamin D (Vitamin D3) 1,000 unit DAILY 10/27/16 12:00 11/01/16 08:26 1,000 UNIT Lab Laboratory Tests Test 11/01/16 11:48 11/01/16 11:58 11/01/16 12:10 11/01/16 16:35 O2 Saturation 90 % (92-99) Arterial Blood pH 7.49 (7.35-7.45) Arterial Blood pCO2 at Patient Temp 29 mmHg (35-46) Arterial Blood pO2 at Patient Temp 59 mmHg (65-108) Arterial Blood HCO3 21 mmol/L (21-28) Arterial Blood Base Excess -1 mmol/L (-3-3) FiO2 36 Glucose (Fingerstick) 182 mg/dL (70-99) 224 mg/dL (70-99) Sodium Level 129 mmol/L (136-145) Uric Acid 7.0 mg/dL (3.5-7.2) Test 11/01/16 21:21 11/02/16 05:00 11/02/16 06:00 Glucose (Fingerstick) 127 mg/dL (70-99) Sodium Level 130 mmol/L (136-145) Potassium Level 4.6 mmol/L (3.5-5.1) Chloride Level 96 mmol/L (98-107) Carbon Dioxide Level 26 mmol/L (21-32) Anion Gap 8 (6-14) Blood Urea Nitrogen 29 mg/dL (8-26) Creatinine 1.1 mg/dL (0.7-1.3) Estimated GFR (Cockcroft-Gault) 65.8 Glucose Level 140 mg/dL (70-99) Calcium Level 7.5 mg/dL (8.5-10.1) Phosphorus Level 3.0 mg/dL (2.6-4.7) Magnesium Level 1.7 mg/dL (1.8-2.4) Albumin 2.4 g/dL (3.4-5.0) White Blood Count 11.3 x10^3/uL (4.0-11.0) Red Blood Count 3.60 x10^6/uL (4.30-5.70) Hemoglobin 9.4 g/dL (13.0-17.5) Hematocrit 28.9 % (39.0-53.0) Mean Corpuscular Volume 80 fL (79-100) Mean Corpuscular Hemoglobin 26 pg (25-35) Mean Corpuscular Hemoglobin Concent 33 g/dL (31-37) Red Cell Distribution Width 18.5 % (11.5-14.5) Platelet Count 216 x10^3/uL (140-400) Neutrophils (%) (Auto) 81 % (31-73) Lymphocytes (%) (Auto) 12 % (24-48) Monocytes (%) (Auto) 6 % (0-9) Eosinophils (%) (Auto) 1 % (0-3) Basophils (%) (Auto) 0 % (0-3) Neutrophils # (Auto) 9.2 x10^3uL (1.8-7.7) Lymphocytes # (Auto) 1.3 x10^3/uL (1.0-4.8) Monocytes # (Auto) 0.7 x10^3/uL (0.0-1.1) Eosinophils # (Auto) 0.1 x10^3/uL (0.0-0.7) Basophils # (Auto) 0.0 x10^3/uL (0.0-0.2) AILIN MCBRIDE MD November 02, 2016 09:39
[2016-11-02] MEDS: ACETYLCYSTEINE 20% ORAL SOLN 600 MG/3 ML SYRINGE. PO SCH ×2 (09:45→20:34)
[2016-11-02] MEDS ORDERED: MAGNESIUM SULFATE 1GM 100 ML IV ONE (09:45)
[2016-11-02] MEDS: SODIUM ACETATE IV SCH (10:00)
[2016-11-02] MEDS: 1/2 NORMAL SALINE IV SCH (10:00)
--- NOTE | 2016-11-02 10:55 | PDOC ---
PROGRESS NOTES Chief Complaint Chief Complaint cc:CHF exacerbation GI bleed, anemia malnutrition acute renal failure on CKD 3 , w/ iron deficiency CAD, angina, Hx CABG DM2, Hypertension Hyperlipidemia weakness and debility History of Present Illness History of Present Illness asleep on Bipap, easily aroused and talkative His SpO2% was at 100 daughter was here this AM, discussed with Dr. Cota briefly Vitals Vitals Vital Signs Date Time Temp Pulse Resp B/P (MAP) Pulse Ox O2 Delivery O2 Flow Rate FiO2 11/02/16 09:00 71 20 118/59 (78) 92 BiPAP/CPAP 11/02/16 08:00 99.2 99.2 11/01/16 20:06 5.0 Physical Exam General: Alert, No acute distress Heart: Regular rate, Normal S1, Normal S2, No murmurs Lungs: Other (few rhonchi) Abdomen: Normal bowel sounds, Soft Extremities: No clubbing, Normal pulses Skin: No rashes, No breakdown Labs LABS Laboratory Tests Test 11/01/16 11:48 11/01/16 11:58 11/01/16 12:10 11/01/16 16:35 O2 Saturation 90 % (92-99) Arterial Blood pH 7.49 (7.35-7.45) Arterial Blood pCO2 at Patient Temp 29 mmHg (35-46) Arterial Blood pO2 at Patient Temp 59 mmHg (65-108) Arterial Blood HCO3 21 mmol/L (21-28) Arterial Blood Base Excess -1 mmol/L (-3-3) FiO2 36 Glucose (Fingerstick) 182 mg/dL (70-99) 224 mg/dL (70-99) Sodium Level 129 mmol/L (136-145) Uric Acid 7.0 mg/dL (3.5-7.2) Test 11/01/16 21:21 11/02/16 05:00 11/02/16 06:00 Glucose (Fingerstick) 127 mg/dL (70-99) Sodium Level 130 mmol/L (136-145) Potassium Level 4.6 mmol/L (3.5-5.1) Chloride Level 96 mmol/L (98-107) Carbon Dioxide Level 26 mmol/L (21-32) Anion Gap 8 (6-14) Blood Urea Nitrogen 29 mg/dL (8-26) Creatinine 1.1 mg/dL (0.7-1.3) Estimated GFR (Cockcroft-Gault) 65.8 Glucose Level 140 mg/dL (70-99) Calcium Level 7.5 mg/dL (8.5-10.1) Phosphorus Level 3.0 mg/dL (2.6-4.7) Magnesium Level 1.7 mg/dL (1.8-2.4) Albumin 2.4 g/dL (3.4-5.0) White Blood Count 11.3 x10^3/uL (4.0-11.0) Red Blood Count 3.60 x10^6/uL (4.30-5.70) Hemoglobin 9.4 g/dL (13.0-17.5) Hematocrit 28.9 % (39.0-53.0) Mean Corpuscular Volume 80 fL (79-100) Mean Corpuscular Hemoglobin 26 pg (25-35) Mean Corpuscular Hemoglobin Concent 33 g/dL (31-37) Red Cell Distribution Width 18.5 % (11.5-14.5) Platelet Count 216 x10^3/uL (140-400) Neutrophils (%) (Auto) 81 % (31-73) Lymphocytes (%) (Auto) 12 % (24-48) Monocytes (%) (Auto) 6 % (0-9) Eosinophils (%) (Auto) 1 % (0-3) Basophils (%) (Auto) 0 % (0-3) Neutrophils # (Auto) 9.2 x10^3uL (1.8-7.7) Lymphocytes # (Auto) 1.3 x10^3/uL (1.0-4.8) Monocytes # (Auto) 0.7 x10^3/uL (0.0-1.1) Eosinophils # (Auto) 0.1 x10^3/uL (0.0-0.7) Basophils # (Auto) 0.0 x10^3/uL (0.0-0.2) Assessment and Plan Assessmemt and Plan Cath today Problems Medical Problems: (1) CHF exacerbation Status: Acute Problems: Comment Review of Relevant I have reviewed the following items dorian (where applicable) has been applied. Labs Laboratory Tests Test 10/31/16 11:55 10/31/16 13:02 10/31/16 16:00 10/31/16 17:34 Sodium Level 124 mmol/L (136-145) 126 mmol/L (136-145) Glucose (Fingerstick) 152 mg/dL (70-99) 160 mg/dL (70-99) Test 10/31/16 19:53 10/31/16 20:44 11/01/16 00:15 11/01/16 04:20 Sodium Level 127 mmol/L (136-145) 128 mmol/L (136-145) 129 mmol/L (136-145) Glucose (Fingerstick) 123 mg/dL (70-99) White Blood Count 10.3 x10^3/uL (4.0-11.0) Red Blood Count 3.43 x10^6/uL (4.30-5.70) Hemoglobin 8.8 g/dL (13.0-17.5) Hematocrit 27.2 % (39.0-53.0) Mean Corpuscular Volume 79 fL (79-100) Mean Corpuscular Hemoglobin 26 pg (25-35) Mean Corpuscular Hemoglobin Concent 32 g/dL (31-37) Red Cell Distribution Width 19.1 % (11.5-14.5) Platelet Count 183 x10^3/uL (140-400) Neutrophils (%) (Auto) 81 % (31-73) Lymphocytes (%) (Auto) 12 % (24-48) Monocytes (%) (Auto) 6 % (0-9) Eosinophils (%) (Auto) 0 % (0-3) Basophils (%) (Auto) 0 % (0-3) Neutrophils # (Auto) 8.3 x10^3uL (1.8-7.7) Lymphocytes # (Auto) 1.3 x10^3/uL (1.0-4.8) Monocytes # (Auto) 0.6 x10^3/uL (0.0-1.1) Eosinophils # (Auto) 0.0 x10^3/uL (0.0-0.7) Basophils # (Auto) 0.0 x10^3/uL (0.0-0.2) Potassium Level 4.4 mmol/L (3.5-5.1) Chloride Level 96 mmol/L (98-107) Carbon Dioxide Level 28 mmol/L (21-32) Anion Gap 5 (6-14) Blood Urea Nitrogen 36 mg/dL (8-26) Creatinine 1.3 mg/dL (0.7-1.3) Estimated GFR (Cockcroft-Gault) 54.3 Glucose Level 135 mg/dL (70-99) Lactic Acid Level 1.1 mmol/L (0.4-2.0) Calcium Level 7.7 mg/dL (8.5-10.1) Phosphorus Level 3.0 mg/dL (2.6-4.7) Magnesium Level 2.0 mg/dL (1.8-2.4) Albumin 2.4 g/dL (3.4-5.0) Test 11/01/16 08:05 11/01/16 11:48 11/01/16 11:58 11/01/16 12:10 Sodium Level 132 mmol/L (136-145) 129 mmol/L (136-145) Glucose (Fingerstick) 137 mg/dL (70-99) 182 mg/dL (70-99) O2 Saturation 90 % (92-99) Arterial Blood pH 7.49 (7.35-7.45) Arterial Blood pCO2 at Patient Temp 29 mmHg (35-46) Arterial Blood pO2 at Patient Temp 59 mmHg (65-108) Arterial Blood HCO3 21 mmol/L (21-28) Arterial Blood Base Excess -1 mmol/L (-3-3) FiO2 36 Uric Acid 7.0 mg/dL (3.5-7.2) Test 11/01/16 16:35 11/01/16 21:21 11/02/16 05:00 11/02/16 06:00 Glucose (Fingerstick) 224 mg/dL (70-99) 127 mg/dL (70-99) Sodium Level 130 mmol/L (136-145) Potassium Level 4.6 mmol/L (3.5-5.1) Chloride Level 96 mmol/L (98-107) Carbon Dioxide Level 26 mmol/L (21-32) Anion Gap 8 (6-14) Blood Urea Nitrogen 29 mg/dL (8-26) Creatinine 1.1 mg/dL (0.7-1.3) Estimated GFR (Cockcroft-Gault) 65.8 Glucose Level 140 mg/dL (70-99) Calcium Level 7.5 mg/dL (8.5-10.1) Phosphorus Level 3.0 mg/dL (2.6-4.7) Magnesium Level 1.7 mg/dL (1.8-2.4) Albumin 2.4 g/dL (3.4-5.0) White Blood Count 11.3 x10^3/uL (4.0-11.0) Red Blood Count 3.60 x10^6/uL (4.30-5.70) Hemoglobin 9.4 g/dL (13.0-17.5) Hematocrit 28.9 % (39.0-53.0) Mean Corpuscular Volume 80 fL (79-100) Mean Corpuscular Hemoglobin 26 pg (25-35) Mean Corpuscular Hemoglobin Concent 33 g/dL (31-37) Red Cell Distribution Width 18.5 % (11.5-14.5) Platelet Count 216 x10^3/uL (140-400) Neutrophils (%) (Auto) 81 % (31-73) Lymphocytes (%) (Auto) 12 % (24-48) Monocytes (%) (Auto) 6 % (0-9) Eosinophils (%) (Auto) 1 % (0-3) Basophils (%) (Auto) 0 % (0-3) Neutrophils # (Auto) 9.2 x10^3uL (1.8-7.7) Lymphocytes # (Auto) 1.3 x10^3/uL (1.0-4.8) Monocytes # (Auto) 0.7 x10^3/uL (0.0-1.1) Eosinophils # (Auto) 0.1 x10^3/uL (0.0-0.7) Basophils # (Auto) 0.0 x10^3/uL (0.0-0.2) Laboratory Tests Test 11/01/16 11:48 11/01/16 11:58 11/01/16 12:10 11/01/16 16:35 O2 Saturation 90 % (92-99) Arterial Blood pH 7.49 (7.35-7.45) Arterial Blood pCO2 at Patient Temp 29 mmHg (35-46) Arterial Blood pO2 at Patient Temp 59 mmHg (65-108) Arterial Blood HCO3 21 mmol/L (21-28) Arterial Blood Base Excess -1 mmol/L (-3-3) FiO2 36 Glucose (Fingerstick) 182 mg/dL (70-99) 224 mg/dL (70-99) Sodium Level 129 mmol/L (136-145) Uric Acid 7.0 mg/dL (3.5-7.2) Test 11/01/16 21:21 11/02/16 05:00 11/02/16 06:00 Glucose (Fingerstick) 127 mg/dL (70-99) Sodium Level 130 mmol/L (136-145) Potassium Level 4.6 mmol/L (3.5-5.1) Chloride Level 96 mmol/L (98-107) Carbon Dioxide Level 26 mmol/L (21-32) Anion Gap 8 (6-14) Blood Urea Nitrogen 29 mg/dL (8-26) Creatinine 1.1 mg/dL (0.7-1.3) Estimated GFR (Cockcroft-Gault) 65.8 Glucose Level 140 mg/dL (70-99) Calcium Level 7.5 mg/dL (8.5-10.1) Phosphorus Level 3.0 mg/dL (2.6-4.7) Magnesium Level 1.7 mg/dL (1.8-2.4) Albumin 2.4 g/dL (3.4-5.0) White Blood Count 11.3 x10^3/uL (4.0-11.0) Red Blood Count 3.60 x10^6/uL (4.30-5.70) Hemoglobin 9.4 g/dL (13.0-17.5) Hematocrit 28.9 % (39.0-53.0) Mean Corpuscular Volume 80 fL (79-100) Mean Corpuscular Hemoglobin 26 pg (25-35) Mean Corpuscular Hemoglobin Concent 33 g/dL (31-37) Red Cell Distribution Width 18.5 % (11.5-14.5) Platelet Count 216 x10^3/uL (140-400) Neutrophils (%) (Auto) 81 % (31-73) Lymphocytes (%) (Auto) 12 % (24-48) Monocytes (%) (Auto) 6 % (0-9) Eosinophils (%) (Auto) 1 % (0-3) Basophils (%) (Auto) 0 % (0-3) Neutrophils # (Auto) 9.2 x10^3uL (1.8-7.7) Lymphocytes # (Auto) 1.3 x10^3/uL (1.0-4.8) Monocytes # (Auto) 0.7 x10^3/uL (0.0-1.1) Eosinophils # (Auto) 0.1 x10^3/uL (0.0-0.7) Basophils # (Auto) 0.0 x10^3/uL (0.0-0.2) Microbiology 10/27/16 Urine Culture - Final, Complete 10/27/16 Urine Culture Result 1 (JANEL) - Final, Complete Medications Current Medications Pantoprazole Sodium (Protonix Vial) 40 mg DAILYAC IVP Last administered on 08:32; Start 10/26/16 at 17:00; Stop 10/30/16 at 11:57; Status DC Dobutamine HCl/ Dextrose 250 ml @ 0 mls/hr CONT PRN IV SEE I/O RECORD Last administered on 10/29/16 03:02; Start 10/26/16 at 17:00; Stop 10/30/16 at 10:57 ; Status DC Furosemide (Lasix) 60 mg 1X ONCE IVP Last administered on 10/27/16 08:15; Start 10/27/16 at 08:30; Stop 10/27/16 at 08:31; Status DC Sodium Bicarbonate 50 meq Q2HR IV Last administered on 10/27/16 12:38; Start 10/27/16 at 10:00; Stop 10/27/16 at 12:01; Status DC Albuterol/ Ipratropium (Duoneb) 3 ml RTQID NEB Last administered on 11/02/16 08 :03; Start 10/27/16 at 12:00 Heparin Sodium (Porcine) (Heparin Sodium) 10,000 unit STK-MED ONCE .ROUTE ; Start 10/27/16 at 10:01; Stop 10/27/16 at 10:02; Status DC Lidocaine/Sodium Bicarbonate (Buffered Lidocaine 1%) 20 ml STK-MED ONCE IJ ; Start 10/27/16 at 10:01; Stop 10/27/16 at 10:02; Status DC Heparin Sodium/ Sodium Chloride 500 ml @ As Directed STK-MED ONCE .ROUTE ; Start 10/27/16 at 10:01; Stop 10/27/16 at 10:02; Status DC Lidocaine/Sodium Bicarbonate (Buffered Lidocaine 1%) 3 ml 1X ONCE IJ Last administered on 10/27/16 12:16; Start 10/27/16 at 10:15; Stop 10/27/16 at 10:16 ; Status DC Heparin Sodium/ Sodium Chloride 60 unit 1X ONCE IV Last administered on 12:14; Start 10/27/16 at 10:15; Stop 10/27/16 at 10:16; Status DC Heparin Sodium (Porcine) (Heparin Sodium) 2,500 unit 1X ONCE INT CAT Last administered on 10/27/16 12:16; Start 10/27/16 at 10:15; Stop 10/27/16 at 10:16 ; Status DC Aspirin (Krystian Aspirin) 325 mg DAILY PO Last administered on 11/01/16 08:25; Start 10/27/16 at 12:00 Vitamin D (Vitamin D3) 1,000 unit DAILY PO Last administered on 11/01/16 08:26 ; Start 10/27/16 at 12:00 Diltiazem HCl (Cardizem Cd) 300 mg DAILY PO Last administered on 11/01/16 08:26 ; Start 10/27/16 at 12:00 Furosemide (Lasix) 40 mg [id number] PO Last administered on 10/28/16 17:13; Start 10/27/16 at 12:00; Stop 10/29/16 at 07:12; Status DC Insulin Aspart (Novolog) 11 units TIDWMEALS SQ Last administered on 11/01/16 12 :33; Start 10/27/16 at 12:00 Levothyroxine Sodium (Synthroid) 125 mcg DAILY07 PO Last administered on 08:26; Start 10/27/16 at 12:00 Lisinopril (Prinivil) 40 mg DAILY PO Last administered on 10/31/16 18:02; Start 10/27/16 at 12:00 Methocarbamol (Robaxin) 500 mg PRN TID PRN PO MUSCLE SPASMS Last administered on 11/02/16 00:33; Start 10/27/16 at 11:15 Tamsulosin HCl (Flomax) 0.4 mg QHS PO Last administered on 11/01/16 21:15; Start 10/27/16 at 21:00 Albuterol Sulfate (Ventolin Neb Soln) 2.5 mg PRN Q4HRS PRN NEB SHORTNESS OF BREATH Last administered on 10/30/16 01:38; Start 10/27/16 at 11:30 Brimonidine Tartrate (Alphagan) 1 drop BID OU Last administered on 11/01/16 21: 16; Start 10/27/16 at 12:00 Artificial Tears (Artificial Tears) 1 drop PRN Q15MIN PRN OU DRY EYE; Start at 11:30 Ferrous Sulfate (Feosol) 325 mg BIDWMEALS PO Last administered on 11/01/16 18: 04; Start 10/27/16 at 12:00 Gabapentin (Neurontin) 300 mg BID PO Last administered on 11/01/16 21:15; Start 10/27/16 at 12:00 Non-Formulary Medication 1 inh QID IH ; Start 10/27/16 at 13:00; Status UNV Non-Formulary Medication 1 each TID TP ; Start 10/27/16 at 14:00; Status UNV Non-Formulary Medication 1 tab BID PO ; Start 10/27/16 at 21:00; Status UNV Potassium Chloride (Klor-Con) 10 meq [id number] PO Last administered on 08:31; Start 10/28/16 at 08:00 Atorvastatin Calcium (Lipitor) 20 mg QHS PO Last administered on 11/01/16 21:15 ; Start 10/27/16 at 21:00 Linagliptin (Tradjenta) 5 mg DAILY PO Last administered on 11/01/16 08:26; Start 10/27/16 at 12:00 Furosemide (Lasix) 60 mg 1X ONCE IVP ; Start 10/28/16 at 08:00; Stop 10/28/16 at 08:01; Status DC Sodium Bicarbonate 50 meq Q2HR IV Last administered on 10/29/16 10:14; Start 10/29/16 at 08:00; Stop 10/29/16 at 10:01; Status DC Sodium Bicarbonate 150 meq/Sterile Water 1,150 ml @ 80 mls/hr [id number] PRN IV . Last administered on 10/29/16 16:41; Start 10/29/16 at 07:45; Stop 10/30/16 at 12:28; Status DC Sodium Chloride 500 ml @ 30 mls/hr CONT PRN PRN IV see comments; Start at 07:45; Stop 10/30/16 at 12:28; Status DC Acetaminophen (Tylenol) 650 mg PRN Q6HRS PRN PO PAIN Last administered on 16:52; Start 10/29/16 at 11:15 Nystatin (Nystop) 1 summer TID PRN PRN TP REDNESS; Start 10/29/16 at 11:15 Multi-Ingredient Ointment (Analgesic Elwell) 1 summer PRN QID PRN TP MUSCLE PAIN Last administered on 10/30/16 16:52; Start 10/29/16 at 11:15 Magnesium Sulfate/ Dextrose 50 ml @ 25 mls/hr PRN DAILY PRN IV for Mag < 1.7 on am labs; Start 10/30/16 at 09:45 Dobutamine HCl/ Dextrose 250 ml @ 0 mls/hr CONT PRN IV SEE I/O RECORD Last administered on 11/01/16 18:04; Start 10/30/16 at 11:00 Pantoprazole Sodium (Protonix) 40 mg DAILYAC PO Last administered on 11/01/16 08:26; Start 10/31/16 at 07:30 Iron Sucrose 200 mg/Sodium Chloride 110 ml @ 55 mls/hr 3X/WEEK IV Last administered on 11/01/16 09:00; Start 11/01/16 at 09:00; Stop 11/10/16 at 10:59 Sodium Chloride 500 ml @ 30 mls/hr CONT PRN PRN IV see comments Last administered on 11/01/16 03:29; Start 10/31/16 at 09:00 Acetaminophen/ Hydrocodone Bitart (Lortab 5/325) 1 tab PRN Q4HRS PRN PO PAIN Last administered on 11/02/16 00:34; Start 10/31/16 at 20:30 Furosemide (Lasix) 20 mg 1X ONCE IVP ; Start 11/01/16 at 15:45; Stop 11/01/16 at 16:05; Status DC Furosemide (Lasix) 20 mg 1X ONCE IVP Last administered on 11/01/16 21:15; Start 5/3/17 at 21:15; Stop 11/01/16 at 21:16; Status DC Magnesium Sulfate/ Dextrose 100 ml @ 100 mls/hr 1X ONCE IV ; Start 11/02/16 at 09:45; Stop 11/02/16 at 10:44; Status DC Sodium Acetate 75 meq/Sodium Chloride 1,037.5 ml @ 75 mls/hr [id number] IV ; Start 11/02/16 at 10:00 Acetylcysteine (Mucomyst 20% Oral Solution) 1,200 mg BID PO ; Start 11/02/16 at 09:45; Stop 11/04/16 at 09:44 Active Scripts Active Reported Tamsulosin Hcl 0.4 Mg Cap.er.24h 0.4 Mg PO QHS Onglyza (Saxagliptin Hcl) 5 Mg Tablet 1 Tab PO DAILY Crestor (Rosuvastatin Calcium) 10 Mg Tablet 0.5 Tab PO DAILY Potassium Chloride 20 Meq Tablet.er 10 Meq PO DAILY Omeprazole 20 Mg Tablet.dr 1 Tab PO BID Nitrostat (Nitroglycerin) 0.3 Mg Tab.subl 0.3 Mg SL PRN Q5MIN PRN Methocarbamol 500 Mg Tablet 500 Mg PO PRN TID PRN Bengay Ultra Strength (Menthol) 1 Each Adh..patch 1 Each TP TID Lisinopril 40 Mg Tablet 1 Tab PO DAILY Levothyroxine Sodium 125 Mcg Tablet 1 Tab PO DAILY Novolog Flexpen (Insulin Aspart) 100 Unit/1 Ml Insuln.pen 11 Unit SQ TIDWMEALS Gabapentin 300 Mg Capsule 300 Mg PO TID Furosemide 40 Mg Tablet 40 Mg PO BID Ferrous Sulfate 324 Mg Tablet. 324 Mg PO BID Cardizem Cd (Diltiazem Hcl) 300 Mg Cap.er.24h 300 Mg PO DAILY Vitamin D3 (Cholecalciferol (Vitamin D3)) 1,000 Unit Tablet 1 Tab PO DAILY Refresh Optive Advanced Drops (Carboxymethyl/Glycerin/Poly80) 10 Ml Drops 1 Drop OP PRN QID PRN Alphagan P (Brimonidine Tartrate) 5 Ml Drops 1 Drop EACHEYE BID Aspirin 325 Mg Tablet 1 Tab PO DAILY Albuterol Sulfate Conc Neb Soln (Albuterol Sulfate) 2.5 Mg/0.5 Ml Vial.neb 1 Vial NEB Q4HRS Combivent Respimat Inhal (Ipratropium/Albuterol Sulfate) 4 Gm Aer.w.adap 1 Inh IH QID Vitals/I & O Vital Sign - Last 24 Hours 11/01/16 11/01/16 11/01/16 11/01/16 11:00 11:20 12:00 12:00 Temp 98.6 98.6 Pulse 71 71 Resp 25 30 B/P (MAP) 93/47 (62) 84/43 (57) Pulse Ox 92 92 O2 Delivery Nasal Cannula Nasal Cannula Nasal Cannula O2 Flow Rate 4.0 4.0 4.0 4.0 11/01/16 11/01/16 11/01/16 11/01/16 12:12 13:00 13:39 13:54 Temp 97.6 97.7 97.6 97.7 Pulse 71 71 71 Resp 21 21 20 B/P (MAP) 80/49 (59) 80/49 82/49 Pulse Ox 91 91 O2 Delivery Nasal Cannula Nasal Cannula O2 Flow Rate 4.0 4.0 11/01/16 11/01/16 11/01/16 11/01/16 14:00 14:39 15:00 15:37 Temp 98.1 98.1 Pulse 71 71 71 Resp 21 18 18 B/P (MAP) 76/47 (57) 78/45 78/45 (56) Pulse Ox 93 94 93 O2 Delivery Nasal Cannula Nasal Cannula BiPAP/CPAP O2 Flow Rate 4.0 4.0 11/01/16 11/01/16 11/01/16 11/01/16 15:39 16:00 16:00 17:00 Temp 96.5 96.5 96.5 96.5 Pulse 75 75 72 Resp 22 22 21 B/P (MAP) 86/51 86/51 (63) 102/52 (69) Pulse Ox 94 93 O2 Delivery Bi-pap BiPAP/CPAP Nasal Cannula O2 Flow Rate 4.0 11/01/16 11/01/16 11/01/16 11/01/16 18:00 19:00 20:00 20:00 Temp 97.0 97.0 Pulse 71 70 70 Resp 35 26 33 B/P (MAP) 95/51 (66) 83/50 (61) 105/53 (70) Pulse Ox 94 95 90 O2 Delivery Nasal Cannula Nasal Cannula Nasal Cannula Nasal Cannula O2 Flow Rate 4.0 5.0 5.0 5.0 5/311/01/16 11/01/16 11/01/16 20:06 21:00 21:00 22:00 Pulse 74 70 Resp 32 26 B/P (MAP) 111/55 (73) 104/51 (68) Pulse Ox 93 91 93 90 O2 Delivery Nasal Cannula BiPAP/CPAP BiPAP/CPAP BiPAP/CPAP O2 Flow Rate 5.0 11/01/16 11/01/16 11/02/16 11/02/16 23:00 23:00 00:00 00:00 Temp 97.3 97.3 Pulse 76 76 Resp 28 25 B/P (MAP) 114/60 (78) 109/60 (76) Pulse Ox 91 91 93 O2 Delivery BiPAP/CPAP BiPAP/CPAP BiPAP/CPAP Bi-pap 11/02/16 11/02/16 11/02/16 11/02/16 00:34 01:00 01:34 02:00 Pulse 76 67 Resp 28 20 24 18 B/P (MAP) 104/51 (68) 95/51 (66) Pulse Ox 92 95 94 93 O2 Delivery BiPAP/CPAP BiPAP/CPAP BiPAP/CPAP BiPAP/CPAP 11/02/16 11/02/16 11/02/16 11/02/16 03:02 03:05 07:00 08:00 Pulse 72 75 Resp 17 26 B/P (MAP) 99/47 (64) 119/58 (78) Pulse Ox 95 95 96 O2 Delivery BiPAP/CPAP BiPAP/CPAP BiPAP/CPAP Bi-pap 11/02/16 11/02/16 11/02/16 08:00 08:01 09:00 Temp 99.2 99.2 Pulse 72 71 Resp 21 20 B/P (MAP) 130/65 (86) 118/59 (78) Pulse Ox 98 98 92 O2 Delivery BiPAP/CPAP BiPAP/CPAP BiPAP/CPAP Intake and Output 11/01/16 11/01/16 11/02/16 15:00 23:00 07:00 Intake Total 640 ml 583 ml 120 ml Output Total 340 ml 550 ml 495 ml Balance 300 ml 33 ml -375 ml RADU BAUTISTA MD November 02, 2016 10:55
--- NOTE | 2016-11-02 11:53 | PDOC ---
PULMONARY PROGRESS NOTES Subjective ON DOBUTAMINE/ BIPAP CXR 11/01 with new mild CHF Vitals Vital Signs Date Time Temp Pulse Resp B/P (MAP) Pulse Ox O2 Delivery O2 Flow Rate FiO2 11/02/16 11:30 97 BiPAP/CPAP 11/02/16 09:00 71 20 118/59 (78) 11/02/16 08:00 99.2 99.2 11/01/16 20:06 5.0 ROS: No Nausea, No Chest Pain, No Abdominal Pain, No Increase Cough General: Alert, No acute distress Lungs: Other (few rhonchi) Cardiovascular: S1, S2 Abdomen: Soft Neuro Exam: Alert Extremities: Other (1+edema) Skin: Warm Labs Laboratory Tests Test 10/31/16 11:55 10/31/16 13:02 10/31/16 16:00 10/31/16 17:34 Sodium Level 124 mmol/L (136-145) 126 mmol/L (136-145) Glucose (Fingerstick) 152 mg/dL (70-99) 160 mg/dL (70-99) Test 10/31/16 19:53 10/31/16 20:44 11/01/16 00:15 11/01/16 04:20 Sodium Level 127 mmol/L (136-145) 128 mmol/L (136-145) 129 mmol/L (136-145) Glucose (Fingerstick) 123 mg/dL (70-99) White Blood Count 10.3 x10^3/uL (4.0-11.0) Red Blood Count 3.43 x10^6/uL (4.30-5.70) Hemoglobin 8.8 g/dL (13.0-17.5) Hematocrit 27.2 % (39.0-53.0) Mean Corpuscular Volume 79 fL (79-100) Mean Corpuscular Hemoglobin 26 pg (25-35) Mean Corpuscular Hemoglobin Concent 32 g/dL (31-37) Red Cell Distribution Width 19.1 % (11.5-14.5) Platelet Count 183 x10^3/uL (140-400) Neutrophils (%) (Auto) 81 % (31-73) Lymphocytes (%) (Auto) 12 % (24-48) Monocytes (%) (Auto) 6 % (0-9) Eosinophils (%) (Auto) 0 % (0-3) Basophils (%) (Auto) 0 % (0-3) Neutrophils # (Auto) 8.3 x10^3uL (1.8-7.7) Lymphocytes # (Auto) 1.3 x10^3/uL (1.0-4.8) Monocytes # (Auto) 0.6 x10^3/uL (0.0-1.1) Eosinophils # (Auto) 0.0 x10^3/uL (0.0-0.7) Basophils # (Auto) 0.0 x10^3/uL (0.0-0.2) Potassium Level 4.4 mmol/L (3.5-5.1) Chloride Level 96 mmol/L (98-107) Carbon Dioxide Level 28 mmol/L (21-32) Anion Gap 5 (6-14) Blood Urea Nitrogen 36 mg/dL (8-26) Creatinine 1.3 mg/dL (0.7-1.3) Estimated GFR (Cockcroft-Gault) 54.3 Glucose Level 135 mg/dL (70-99) Lactic Acid Level 1.1 mmol/L (0.4-2.0) Calcium Level 7.7 mg/dL (8.5-10.1) Phosphorus Level 3.0 mg/dL (2.6-4.7) Magnesium Level 2.0 mg/dL (1.8-2.4) Albumin 2.4 g/dL (3.4-5.0) Test 11/01/16 08:05 11/01/16 11:48 11/01/16 11:58 11/01/16 12:10 Sodium Level 132 mmol/L (136-145) 129 mmol/L (136-145) Glucose (Fingerstick) 137 mg/dL (70-99) 182 mg/dL (70-99) O2 Saturation 90 % (92-99) Arterial Blood pH 7.49 (7.35-7.45) Arterial Blood pCO2 at Patient Temp 29 mmHg (35-46) Arterial Blood pO2 at Patient Temp 59 mmHg (65-108) Arterial Blood HCO3 21 mmol/L (21-28) Arterial Blood Base Excess -1 mmol/L (-3-3) FiO2 36 Uric Acid 7.0 mg/dL (3.5-7.2) Test 11/01/16 16:35 11/01/16 21:21 11/02/16 05:00 11/02/16 06:00 Glucose (Fingerstick) 224 mg/dL (70-99) 127 mg/dL (70-99) Sodium Level 130 mmol/L (136-145) Potassium Level 4.6 mmol/L (3.5-5.1) Chloride Level 96 mmol/L (98-107) Carbon Dioxide Level 26 mmol/L (21-32) Anion Gap 8 (6-14) Blood Urea Nitrogen 29 mg/dL (8-26) Creatinine 1.1 mg/dL (0.7-1.3) Estimated GFR (Cockcroft-Gault) 65.8 Glucose Level 140 mg/dL (70-99) Calcium Level 7.5 mg/dL (8.5-10.1) Phosphorus Level 3.0 mg/dL (2.6-4.7) Magnesium Level 1.7 mg/dL (1.8-2.4) Albumin 2.4 g/dL (3.4-5.0) White Blood Count 11.3 x10^3/uL (4.0-11.0) Red Blood Count 3.60 x10^6/uL (4.30-5.70) Hemoglobin 9.4 g/dL (13.0-17.5) Hematocrit 28.9 % (39.0-53.0) Mean Corpuscular Volume 80 fL (79-100) Mean Corpuscular Hemoglobin 26 pg (25-35) Mean Corpuscular Hemoglobin Concent 33 g/dL (31-37) Red Cell Distribution Width 18.5 % (11.5-14.5) Platelet Count 216 x10^3/uL (140-400) Neutrophils (%) (Auto) 81 % (31-73) Lymphocytes (%) (Auto) 12 % (24-48) Monocytes (%) (Auto) 6 % (0-9) Eosinophils (%) (Auto) 1 % (0-3) Basophils (%) (Auto) 0 % (0-3) Neutrophils # (Auto) 9.2 x10^3uL (1.8-7.7) Lymphocytes # (Auto) 1.3 x10^3/uL (1.0-4.8) Monocytes # (Auto) 0.7 x10^3/uL (0.0-1.1) Eosinophils # (Auto) 0.1 x10^3/uL (0.0-0.7) Basophils # (Auto) 0.0 x10^3/uL (0.0-0.2) Laboratory Tests Test 11/01/16 11:58 11/01/16 12:10 11/01/16 16:35 11/01/16 21:21 Glucose (Fingerstick) 182 mg/dL (70-99) 224 mg/dL (70-99) 127 mg/dL (70-99) Sodium Level 129 mmol/L (136-145) Uric Acid 7.0 mg/dL (3.5-7.2) Test 11/02/16 05:00 11/02/16 06:00 Sodium Level 130 mmol/L (136-145) Potassium Level 4.6 mmol/L (3.5-5.1) Chloride Level 96 mmol/L (98-107) Carbon Dioxide Level 26 mmol/L (21-32) Anion Gap 8 (6-14) Blood Urea Nitrogen 29 mg/dL (8-26) Creatinine 1.1 mg/dL (0.7-1.3) Estimated GFR (Cockcroft-Gault) 65.8 Glucose Level 140 mg/dL (70-99) Calcium Level 7.5 mg/dL (8.5-10.1) Phosphorus Level 3.0 mg/dL (2.6-4.7) Magnesium Level 1.7 mg/dL (1.8-2.4) Albumin 2.4 g/dL (3.4-5.0) White Blood Count 11.3 x10^3/uL (4.0-11.0) Red Blood Count 3.60 x10^6/uL (4.30-5.70) Hemoglobin 9.4 g/dL (13.0-17.5) Hematocrit 28.9 % (39.0-53.0) Mean Corpuscular Volume 80 fL (79-100) Mean Corpuscular Hemoglobin 26 pg (25-35) Mean Corpuscular Hemoglobin Concent 33 g/dL (31-37) Red Cell Distribution Width 18.5 % (11.5-14.5) Platelet Count 216 x10^3/uL (140-400) Neutrophils (%) (Auto) 81 % (31-73) Lymphocytes (%) (Auto) 12 % (24-48) Monocytes (%) (Auto) 6 % (0-9) Eosinophils (%) (Auto) 1 % (0-3) Basophils (%) (Auto) 0 % (0-3) Neutrophils # (Auto) 9.2 x10^3uL (1.8-7.7) Lymphocytes # (Auto) 1.3 x10^3/uL (1.0-4.8) Monocytes # (Auto) 0.7 x10^3/uL (0.0-1.1) Eosinophils # (Auto) 0.1 x10^3/uL (0.0-0.7) Basophils # (Auto) 0.0 x10^3/uL (0.0-0.2) Medications Active Scripts Medications Dose Route/Sig Days Date Category Tamsulosin Hcl 0.4 Mg Cap.er.24h 0.4 Mg PO QHS 10/27/16 Reported Onglyza (Saxagliptin Hcl) 5 Mg Tablet 1 Tab PO DAILY 10/27/16 Reported Crestor (Rosuvastatin Calcium) 10 Mg Tablet 0.5 Tab PO DAILY 10/27/16 Reported Potassium Chloride 20 Meq Tablet.er 10 Meq PO DAILY 10/27/16 Reported Omeprazole 20 Mg Tablet.dr 1 Tab PO BID 10/27/16 Reported Nitrostat (Nitroglycerin) 0.3 Mg Tab.subl 0.3 Mg SL PRN Q5MIN PRN 10/27/16 Reported Methocarbamol 500 Mg Tablet 500 Mg PO PRN TID PRN 10/27/16 Reported Bengay Ultra Strength (Menthol) 1 Each Adh..patch 1 Each TP TID 10/27/16 Reported Lisinopril 40 Mg Tablet 1 Tab PO DAILY 10/27/16 Reported Levothyroxine Sodium 125 Mcg Tablet 1 Tab PO DAILY 10/27/16 Reported Novolog Flexpen (Insulin Aspart) 100 Unit/1 Ml Insuln.pen 11 Unit SQ TIDWMEALS 10/27/16 Reported Gabapentin 300 Mg Capsule 300 Mg PO TID 10/27/16 Reported Furosemide 40 Mg Tablet 40 Mg PO BID 10/27/16 Reported Ferrous Sulfate 324 Mg Tablet.dr 324 Mg PO BID 10/27/16 Reported Cardizem Cd (Diltiazem Hcl) 300 Mg Cap.er.24h 300 Mg PO DAILY 10/27/16 Reported Vitamin D3 (Cholecalciferol (Vitamin D3)) 1,000 Unit Tablet 1 Tab PO DAILY 10/27/16 Reported Refresh Optive Advanced Drops (Carboxymethyl/Glycerin/Poly80) 10 Ml Drops 1 Drop OP PRN QID PRN 10/27/16 Reported Alphagan P (Brimonidine Tartrate) 5 Ml Drops 1 Drop EACHEYE BID 10/27/16 Reported Aspirin 325 Mg Tablet 1 Tab PO DAILY 10/27/16 Reported Albuterol Sulfate Conc Neb Soln (Albuterol Sulfate) 2.5 Mg/0.5 Ml Vial.neb 1 Vial NEB Q4HRS 10/27/16 Reported Combivent Respimat Inhal (Ipratropium/Albuterol Sulfate) 4 Gm Aer.w.adap 1 Inh IH QID 10/27/16 Reported Impression . 1. Acute hypoxemic respiratory failure/AECOPD/ Acute on chronic systolic/ Diastolic HF 2. Acute on chronic kidney failure. 3. Chronic heart failure, Acute on chronic systolic/ diastolic heart failure. 4. Cardiomyopathy. (EF 25 ) 5. Status post pacemaker. 6. Coronary artery disease, status post coronary artery bypass grafting. 7. Hypertension. 8. Obstructive sleep apnea. 9. Acute on chronic blood-loss anemia. 10. Metabolic acidosis, suspect secondary to renal tubular acidosis, chronic kidney disease. improved Plan . 1. BiPAP with oxygen supplementation prn/ ABG with hypoxia, repeat cxr 5/3 mild CHF, extra lasix given 2. Venous Dopplers of the lower extremities, neg 3. Follow cardiology input/ cath today 4. No need for antibiotics. 5. Monitor hemoglobin and hematocrit. d/w RN/RT and REFUGIO SALAZAR MD November 02, 2016 11:53
[2016-11-02] MEDS ORDERED: LIDOCAINE 2% 20 ML VIAL. ONE (12:13)
[2016-11-02] MEDS ORDERED: IODIXANOL 320 MG/ML 100 ML VIAL. ONE ×2 (12:13→13:35)
[2016-11-02] MEDS ORDERED: MIDAZOLAM HCL/PF 2 MG/2 ML VIAL. ONE (13:10)
[2016-11-02] MEDS ORDERED: fentaNYL PF VIAL 100 MCG/2 ML VIAL ONE (13:10)
[2016-11-02] MEDS ORDERED: IODIXANOL 320 MG/ML 100 ML VIAL. IART ONE (13:30)
[2016-11-02] MEDS ORDERED: MIDAZOLAM HCL/PF 2 MG/2 ML VIAL. IV ONE (13:30)
[2016-11-02] MEDS ORDERED: fentaNYL PF VIAL 100 MCG/2 ML VIAL IV ONE (13:30)
[2016-11-02] MEDS ORDERED: LIDOCAINE 2% 20 ML VIAL. IJ ONE (13:30)
[2016-11-02] MEDS ORDERED: CONTRAST GIVEN MC PRN (13:45)
--- NOTE | 2016-11-02 16:38 | CARD ---
APPROVED REPORT HISTORY The patient is a 71 year-old male with a history of : previous VT, renal failure , previous CHF, rayne nary artery disease, chronic lung disease, tobacco history() , previous CABG (The CABG date was ), dy slipidemia. INDICATION The indication(s) include : unstable angina , non-STEMI , chest pain, jugular vein distension, periph eral edema, atrial fibrillation, dyspnea. CASE TECHNIQUE The patient was brought electively into the cardiac catheterization lab. A timeout was performed conf irming the patient's name, date of , procedure, and site of procedure. All necessary parties wer e wearing the appropriate personal protective equipment and radiation monitoring devices. After expla ining the risks and benefits of the procedure, informed consent was obtained.(See nursing notes for m edications administered). The right groin was sterilely prepped and draped. The right femoral groin w as infiltrated with 2% Lidocaine subcutaneous anesthesia. During this case, Fluoroscopy and low osmol ar contrast were used for imaging. A sheath was inserted into the right femoral artery and vein witho ut difficulty. Coronary angiography was performed using coronary diagnostic catheters. The left coron mel system was accessed and visualized with a Diagnostic catheter. The right coronary system was acce ssed and visualized with a Diagnostic catheter. The left ventricle was accessed and visualized with a Diagnostic catheter. The left internal mammary artery was accessed and visualized with a Diagnostic catheter. The saphenous vein graft was accessed and visualized with a Diagnostic catheter. Left ventr icular/Aortic Valve gradient assessed on pullback. Left ventriculogram was performed in [place] projectio n. An aortogram of the ascending aorta was performed. A Right Heart Catheterization was performed wit h a 7.5 Fr. [place]-Shanti catheter and pressure were recorded. Pre-demployment femoral angiogram was perf ormed . Closure device was deployed with a Angioseal without any complications. The patient tolerated the procedure well and there were no complications associated with the procedure. Coronary Angiography The patient's coronary anatomy is co-dominant. The left main coronary artery is a large size vessel with stenosis. There is a 90% stenosis in the di stal segment. The left main bifurcates to the left anterior descending and circumflex. The left anterior descending artery is a large size vessel with stenosis. There is a 100% stenosis in the proximal segment. The first diagonal branch is a small size vessel with mild diffused disease. T he second diagonal branch is a small size vessel with mild diffused disease. The circumflex artery is a large size vessel with stenosis. There is a 100% stenosis in the proximal segment. The first obtuse marginal branch is a medium size vessel with mild diffused disease. The sec ond obtuse marginal branch is a medium size vessel with mild diffused disease. The third obtuse patricia nal branch is a medium size vessel with mild diffused disease. The right coronary artery is a large size vessel with diffuse calcification noted throughout this ves ale and without significant stenosis. The right posterior descending artery is a medium size vessel w ith mild diffused disease. The right posterolateral branch is a small size vessel free of disease. The left internal mammary artery to the mid left anterior descending artery segment is patent . The s aphenous vein graft to the first obtuse marginal branch segment is patent this is a sequential that t hen jumps to the second marginal and to the third marginal is the hold saphenous vein graft appears t o be normal and with good flow there is no significant stenosis in any of the marginals down flow fro m the graft anastomosis. Left Ventriculography The left ventricle is dilated in size with global hypokinesis contractility. The left ventricular eje ction fraction is estimated to be 35%. The left ventricular end diastolic pressure is 22 mmHg. the le ventriculogram was performed while the patient was on a dobutamine drip There was no gradient acro ss the aortic valve upon pullback. Right Heart Cath Findings The Right Atrial Pressure is 16 mmHg. The Right Ventricular Pressure is 58/16 mmHg. The Pulmonary Art lorne Pressure is 56/24 mmHg. The Pulmonary Catheter Wedge Pressure is 20 mmHg. Aorta The ascending aorta was normal in size and no other graft was seen. The pressure in the ascending aor ta was 122/55, the LV pressure was 124/16. Conclusion This patient has a dilated cardiomyopathy with severe coronary artery disease of the habematolel vessels. There is no disease of the grafts at this time. The patient also has significant pulmonary hypertensi on. I would recommend medical treatment for this patient including intermittent dobutamine infusions prob ably at least twice a week. He may need to have dialysis in the near future. We will discuss the case with the other services.
--- NOTE | 2016-11-02 16:53 | PDOC4 ---
PROCEDURE Procedure PROCEDURE NOTE [facility] [address] [place] [address] IMAGING REPORT Signed PATIENT: EMI YIN ACCOUNT: [id number] : 1945 LOCATION: [address] [place] [address] AGE: 71 SEX: M EXAM STATUS: ADM IN ORD. PHYSICIAN: WENDIE ANGEL MD REASON: CHF PROCEDURE: Lt/Rt Heart/ Coros LV Gram/Gra APPROVED REPORT HISTORY The patient is a 71 year-old male with a history of : previous CO, renal failure , previous CHF, coronary artery disease, chronic lung disease, tobacco history() , previous CABG (The CABG date was ), dyslipidemia. INDICATION The indication(s) include : unstable angina , non-STEMI , chest pain, jugular vein distension, peripheral edema, atrial fibrillation, dyspnea. CASE TECHNIQUE The patient was brought electively into the cardiac catheterization lab. A timeout was performed confirming the patient's name, date of , procedure, and site of procedure. All necessary parties were wearing the appropriate personal protective equipment and radiation monitoring devices. After explaining the risks and benefits of the procedure, informed consent was obtained.(See nursing notes for medications administered). The right groin was sterilely prepped and draped. The right femoral groin was infiltrated with 2% Lidocaine subcutaneous anesthesia. During this case, Fluoroscopy and low osmolar contrast were used for imaging. A sheath was inserted into the right femoral artery and vein without difficulty. Coronary angiography was performed using coronary diagnostic catheters. The left coronary system was accessed and visualized with a Diagnostic catheter. The right coronary system was accessed and visualized with a Diagnostic catheter. The left ventricle was accessed and visualized with a Diagnostic catheter. The left internal mammary artery was accessed and visualized with a Diagnostic catheter. The saphenous vein graft was accessed and visualized with a Diagnostic catheter. Left ventricular/Aortic Valve gradient assessed on pullback. Left ventriculogram was performed in WALTERS projection. An aortogram of the ascending aorta was performed. A Right Heart Catheterization was performed with a 7.5 Fr. [place]-Shanti catheter and pressure were recorded. Pre-demployment femoral angiogram was performed . Closure device was deployed with a Angioseal without any complications. The patient tolerated the procedure well and there were no complications associated with the procedure. Coronary Angiography The patient's coronary anatomy is co-dominant. The left main coronary artery is a large size vessel with stenosis. There is a 90% stenosis in the distal segment. The left main bifurcates to the left anterior descending and circumflex. The left anterior descending artery is a large size vessel with stenosis. There is a 100% stenosis in the proximal segment. The first diagonal branch is a small size vessel with mild diffused disease. The second diagonal branch is a small size vessel with mild diffused disease. The circumflex artery is a large size vessel with stenosis. There is a 100% stenosis in the proximal segment. The first obtuse marginal branch is a medium size vessel with mild diffused disease. The second obtuse marginal branch is a medium size vessel with mild diffused disease. The third obtuse marginal branch is a medium size vessel with mild diffused disease. The right coronary artery is a large size vessel with diffuse calcification noted throughout this vessel and without significant stenosis. The right posterior descending artery is a medium size vessel with mild diffused disease. The right posterolateral branch is a small size vessel free of disease. The left internal mammary artery to the mid left anterior descending artery segment is patent . The saphenous vein graft to the first obtuse marginal branch segment is patent this is a sequential that then jumps to the second marginal and to the third marginal is the hold saphenous vein graft appears to be normal and with good flow there is no significant stenosis in any of the marginals down flow from the graft anastomosis. Left Ventriculography The left ventricle is dilated in size with global hypokinesis contractility. The left ventricular ejection fraction is estimated to be 35%. The left ventricular end diastolic pressure is 22 mmHg. the left ventriculogram was performed while the patient was on a dobutamine drip There was no gradient across the aortic valve upon pullback. Right Heart Cath Findings The Right Atrial Pressure is 16 mmHg. The Right Ventricular Pressure is 58/16 mmHg. The Pulmonary Artery Pressure is 56/24 mmHg. The Pulmonary Catheter Wedge Pressure is 20 mmHg. Aorta The ascending aorta was normal in size and no other graft was seen. The pressure in the ascending aorta was 122/55, the LV pressure was 124/16. Conclusion This patient has a dilated cardiomyopathy with severe coronary artery disease of the [place] vessels. There is no disease of the grafts at this time. The patient also has significant pulmonary hypertension. I would recommend medical treatment for this patient including intermittent dobutamine infusions probably at least twice a week. He may need to have dialysis in the near future. We will discuss the case with the other services. DICTATED and SIGNED BY: WENDIE ANGEL MD DATE: 11/02/16 1637 CC: ARGENIS BURT III DO; WENDIE ANGEL MD; UNKNOWN PCP NAME ~ WENDIE ANGEL MD November 02, 2016 16:52
[2016-11-02] MEDS: TAMSULOSIN 0.4 MG CAP.ER.24H. PO SCH (20:26)
[2016-11-02] MEDS: ATORVASTATIN CALCIUM 20 MG TABLET PO SCH (20:26)
[2016-11-03] VITALS (20 sets, daily range): BP systolic 74–143; BP diastolic 46–72
[2016-11-03] MEDS: SODIUM ACETATE IV SCH ×2 (01:24→13:40)
[2016-11-03] MEDS: 1/2 NORMAL SALINE IV SCH ×2 (01:24→13:40)
[2016-11-03] MEDS: LEVOTHYROXINE 125 MCG TABLET PO SCH (06:57)
[2016-11-03 07:03] LABS: HEMATOCRIT 30.9 % (39.0-53.0); HEMOGLOBIN 9.9 g/dL (13.0-17.5); RED BLOOD COUNT 3.84 x10^6/uL (4.30-5.70); RED CELL DISTRIBUTION WIDTH 19.2 % (11.5-14.5); WHITE BLOOD COUNT 9.7 x10^3/uL (4.0-11.0)
[2016-11-03 07:24] LABS: ALBUMIN 2.4 g/dL (3.4-5.0); CALCIUM 7.9 mg/dL (8.5-10.1); CREATININE 0.9 mg/dL (0.7-1.3); GFR 82.9; PHOSPHORUS 2.7 mg/dL (2.6-4.7); POTASSIUM 4.4 mmol/L (3.5-5.1)
[2016-11-03] MEDS: IPRATRPIUM/ALBUTEROL 0.5/2.5MG 3 ML NEBU. NEB SCH ×4 (07:42→20:36)
[2016-11-03] MEDS: BRIMONIDINE 0.2% OPHTH SOLUTION 5ML BOTTLE. OU SCH ×2 (08:49→20:28)
[2016-11-03] MEDS: LISINOPRIL 40 MG TABLET. PO SCH (08:50)
[2016-11-03] MEDS: GABAPENTIN 300 MG CAPSULE. PO SCH ×2 (08:50→20:27)
[2016-11-03] MEDS: ASPIRIN 325 MG TABLET PO SCH (08:50)
[2016-11-03] MEDS: PANTOPRAZOLE 40 MG TABLET.DR. PO SCH (08:51)
[2016-11-03] MEDS: FERROUS SULFATE 325 MG TABLET. PO SCH ×2 (08:51→17:32)
[2016-11-03] MEDS: CHOLECALCIFEROL (VITAMIN D3) 1,000 UNIT TABLET PO SCH (08:51)
[2016-11-03] MEDS: LINAGLIPTIN 5 MG TABLET PO SCH (08:51)
[2016-11-03] MEDS: POTASSIUM CHLORIDE 10 MEQ TABLET.ER. PO SCH (08:51)
[2016-11-03] MEDS: ACETYLCYSTEINE 20% ORAL SOLN 600 MG/3 ML SYRINGE. PO SCH ×2 (08:52→20:27)
[2016-11-03] MEDS: INSULIN ASPART 300 UNITS/3 ML INSULN.PEN SQ SCH ×3 (08:53→17:33)
[2016-11-03] MEDS: IRON SUCROSE COMPLEX 200 MG in IV NORMAL SALINE 100ML 100 ML IV SCH (08:54)
--- NOTE | 2016-11-03 09:36 | PDOC ---
SUBJECTIVE ROS BELINDA and hyponatremia doing better, Breathing is easier, appetite is returning CVS: no Orthopnea, no CP RESP: min ch SOB, no RAPHAEL (not ambulated) GI: no Nausea, no Vomiting : no Dysuria, no Urgency OBJECTIVE Vital Signs Vital Signs Date Time Temp Pulse Resp B/P (MAP) Pulse Ox O2 Delivery O2 Flow Rate FiO2 11/03/16 09:00 71 26 119/53 (75) 95 Nasal Cannula 5.0 11/03/16 08:00 100.6 100.6 I & 0 Intake and Output 11/03/16 07:00 Intake Total 2365.62 ml Output Total 1920 ml Balance 445.62 ml Intake Oral 780 ml IV Total 1585.62 ml Output Urine Total 1920 ml # Bowel Movements 1 PHYSICAL EXAM Physical Exam General Appearance: Awake Alert Oriented x 3 In no resp Distress currently - but remains on biPAP Eyes: VIsion Unchanged Conjunctiva Normal EN: No EN Drainage Mucous Memb. dryish Neck: no JVD min JVP Supple no Thyromegaly CVS: S1 S2 no audible Murmur No Gallop No Rub no Edema Resp: Fel RLL Rales upper resp wheezing/ rhonchi no Acc. Muscle use GI: BS +ve NO Bruit Non Tender Non Distended : no CVA tenderness; no Suprapubic Tenderness Assessment & Plan Known CKD III with Creat ~ 1.9ish at [facility] and now much better with adequate vol repletion CmyoPahty with ^ed BNP (no CHF on CXR per report) - now on Dobutamine gtt ? CAD - LHC noted. Med Mx as outlined Low Na - better after starting 3% ; now trending down again. Restart 3% OR Samsca if Na < 125. PO intake is improving too Anemia: IV Iron as ordered HyperUricemia - improved with vol repletion; Lowish mag - Repalce 2 gm as ordered prn hypoAlbuminemia - min Proteinuria - suspect due to Poor PO intake. PO intake is improving now Low grade temp - D/c Toro and HD Cath Discussed Plan of Care and prognosis etc. at length with pt COMMENT/RELEVANT DATA Meds Current Medications Medications (Trade) Dose Ordered Sig/Jcarlos Start Time Stop Time Status Last Admin Dose Admin Acetaminophen (Tylenol) 650 mg PRN Q6HRS PRN 10/29/16 11:15 10/30/16 16:52 650 MG Acetaminophen/ Hydrocodone Bitart (Lortab 5/325) 1 tab PRN Q4HRS PRN 10/31/16 20:30 11/02/16 20:27 1 TAB Acetylcysteine (Mucomyst 20% Oral Solution) 1,200 mg BID 11/02/16 09:45 11/04/16 09:44 11/03/16 08:52 1,200 MG Albuterol Sulfate (Ventolin Neb Soln) 2.5 mg PRN Q4HRS PRN 10/27/16 11:30 10/30/16 01:38 2.5 MG Albuterol/ Ipratropium (Duoneb) 3 ml RTQID 10/27/16 12:00 11/03/16 07:42 3 ML Artificial Tears (Artificial Tears) 1 drop PRN Q15MIN PRN 10/27/16 11:30 Aspirin (Krystian Aspirin) 325 mg DAILY 10/27/16 12:00 11/03/16 08:50 325 MG Atorvastatin Calcium (Lipitor) 20 mg QHS 10/27/16 21:00 11/02/16 20:26 20 MG Brimonidine Tartrate (Alphagan) 1 drop BID 10/27/16 12:00 11/03/16 08:49 1 DROP Diltiazem HCl (Cardizem Cd) 300 mg DAILY 10/27/16 12:00 11/03/16 08:50 300 MG Dobutamine HCl/ Dextrose 250 ml @ 0 mls/hr CONT PRN 10/30/16 11:00 11/01/16 18:04 2.3 MLS/HR Fentanyl Citrate (Fentanyl 2ml Vial) 25 mcg 1X ONCE 11/02/16 13:30 11/02/16 13:32 DC 11/02/16 13:52 25 MCG Ferrous Sulfate (Feosol) 325 mg BIDWMEALS 10/27/16 12:00 11/03/16 08:51 325 MG Furosemide (Lasix) 20 mg 1X ONCE 11/01/16 21:15 11/01/16 21:16 DC 11/01/16 21:15 20 MG Gabapentin (Neurontin) 300 mg BID 10/27/16 12:00 11/03/16 08:50 300 MG Heparin Sodium (Porcine) (Heparin Sodium) 2,500 unit 1X ONCE 10/27/16 10:15 10/27/16 10:16 DC 10/27/16 12:16 2,800 UNIT Heparin Sodium/ Sodium Chloride 1,000 unit 1X ONCE 11/02/16 13:30 11/02/16 13:32 DC 11/02/16 13:51 1,000 UNIT Info (Do NOT chart on this entry -- for MONITORING) 1 each PRN DAILY PRN 11/02/16 13:45 11/04/16 13:44 Insulin Aspart (Novolog) 11 units TIDWMEALS 10/27/16 12:00 11/03/16 08:53 11 UNITS Iodixanol (Visipaque 320) 100 ml STK-MED ONCE 11/02/16 13:35 11/02/16 13:36 DC Iron Sucrose 200 mg/Sodium Chloride 110 ml @ 55 mls/hr 3X/WEEK 11/01/16 09:00 11/10/16 10:59 11/03/16 08:54 55 MLS/HR Levothyroxine Sodium (Synthroid) 125 mcg DAILY07 10/27/16 12:00 11/03/16 06:57 125 MCG Lidocaine HCl 20 ml 1X ONCE 11/02/16 13:30 11/02/16 13:32 DC 11/02/16 13:51 20 ML Lidocaine/Sodium Bicarbonate (Buffered Lidocaine 1%) 3 ml 1X ONCE 10/27/16 10:15 10/27/16 10:16 DC 10/27/16 12:16 3 ML Linagliptin (Tradjenta) 5 mg DAILY 10/27/16 12:00 11/03/16 08:51 5 MG Lisinopril (Prinivil) 40 mg DAILY 10/27/16 12:00 11/03/16 08:50 40 MG Magnesium Sulfate/ Dextrose 100 ml @ 100 mls/hr 1X ONCE 11/02/16 09:45 11/02/16 10:44 DC 11/02/16 09:45 100 MLS/HR Methocarbamol (Robaxin) 500 mg PRN TID PRN 10/27/16 11:15 11/02/16 00:33 500 MG Midazolam HCl (Versed) 1 mg 1X ONCE 11/02/16 13:30 11/02/16 13:32 DC 11/02/16 13:52 1 MG Multi-Ingredient Ointment (Analgesic [place]) 1 summer PRN QID PRN 10/29/16 11:15 10/30/16 16:52 1 SUMMER Non-Formulary Medication 1 tab BID 10/27/16 21:00 UNV Nystatin (Nystop) 1 summer TID PRN PRN 10/29/16 11:15 Pantoprazole Sodium (Protonix Vial) 40 mg DAILYAC 10/26/16 17:00 10/30/16 11:57 DC 10/30/16 08:32 40 MG Pantoprazole Sodium (Protonix) 40 mg DAILYAC 10/31/16 07:30 11/03/16 08:51 40 MG Potassium Chloride (Klor-Con) 10 meq [id number] 10/28/16 08:00 11/03/16 08:51 10 MEQ Sodium Bicarbonate 150 meq/Sterile Water 1,150 ml @ 80 mls/hr [id number] PRN 10/29/16 07:45 10/30/16 12:28 DC 10/29/16 16:41 80 MLS/HR Sodium Acetate 75 meq/Sodium Chloride 1,037.5 ml @ 75 mls/hr [id number] 11/02/16 10:00 11/03/16 01:24 75 MLS/HR Sodium Bicarbonate 50 meq Q2HR 10/29/16 08:00 10/29/16 10:01 DC 10/29/16 10:14 50 MEQ Sodium Chloride 500 ml @ 30 mls/hr CONT PRN PRN 10/31/16 09:00 11/01/16 03:29 30 MLS/HR Tamsulosin HCl (Flomax) 0.4 mg QHS 10/27/16 21:00 11/02/16 20:26 0.4 MG Vitamin D (Vitamin D3) 1,000 unit DAILY 10/27/16 12:00 11/03/16 08:51 1,000 UNIT Lab Laboratory Tests Test 11/02/16 17:27 11/02/16 21:16 11/03/16 06:30 11/03/16 08:06 Glucose (Fingerstick) 166 mg/dL (70-99) 177 mg/dL (70-99) 120 mg/dL (70-99) White Blood Count 9.7 x10^3/uL (4.0-11.0) Red Blood Count 3.84 x10^6/uL (4.30-5.70) Hemoglobin 9.9 g/dL (13.0-17.5) Hematocrit 30.9 % (39.0-53.0) Mean Corpuscular Volume 81 fL (79-100) Mean Corpuscular Hemoglobin 26 pg (25-35) Mean Corpuscular Hemoglobin Concent 32 g/dL (31-37) Red Cell Distribution Width 19.2 % (11.5-14.5) Platelet Count 259 x10^3/uL (140-400) Sodium Level 128 mmol/L (136-145) Potassium Level 4.4 mmol/L (3.5-5.1) Chloride Level 95 mmol/L (98-107) Carbon Dioxide Level 27 mmol/L (21-32) Anion Gap 6 (6-14) Blood Urea Nitrogen 17 mg/dL (8-26) Creatinine 0.9 mg/dL (0.7-1.3) Estimated GFR (Cockcroft-Gault) 82.9 Glucose Level 127 mg/dL (70-99) Calcium Level 7.9 mg/dL (8.5-10.1) Phosphorus Level 2.7 mg/dL (2.6-4.7) Magnesium Level 1.6 mg/dL (1.8-2.4) Albumin 2.4 g/dL (3.4-5.0) AILIN MCBRIDE MD November 03, 2016 09:36
[2016-11-03] MEDS ORDERED: IV NORMAL SALINE 500ML BAG 500 ML IV ONE (10:45)
[2016-11-03] MEDS ORDERED: MAGNESIUM SULFATE 2GM 50 ML IV ONE (11:00)
[2016-11-03] MEDS ORDERED: ALBUMIN HUMAN 5% 500 ML IV ONE (11:15)
--- NOTE | 2016-11-03 11:25 | PDOC ---
PULMONARY PROGRESS NOTES Subjective used bipap last night. on o2 now no pain, sob,better. has cough, no pain Vitals Vital Signs Date Time Temp Pulse Resp B/P (MAP) Pulse Ox O2 Delivery O2 Flow Rate FiO2 11/03/16 11:00 71 25 80/49 (59) 97 Nasal Cannula 5.0 11/03/16 08:00 100.6 100.6 ROS: No Nausea, No Chest Pain, No Abdominal Pain, No Increase Cough General: Alert, No acute distress HEENT: Other (nc at perrl nose throat clear) Lungs: Crackles, Other (few rhonchi) Cardiovascular: S1, S2 Abdomen: Soft, Non-tender, Other (no mass) Neuro Exam: Alert Extremities: Other (1+edema) Skin: Warm Labs Laboratory Tests Test 11/01/16 11:48 11/01/16 11:58 11/01/16 12:10 11/01/16 16:35 O2 Saturation 90 % (92-99) Arterial Blood pH 7.49 (7.35-7.45) Arterial Blood pCO2 at Patient Temp 29 mmHg (35-46) Arterial Blood pO2 at Patient Temp 59 mmHg (65-108) Arterial Blood HCO3 21 mmol/L (21-28) Arterial Blood Base Excess -1 mmol/L (-3-3) FiO2 36 Glucose (Fingerstick) 182 mg/dL (70-99) 224 mg/dL (70-99) Sodium Level 129 mmol/L (136-145) Uric Acid 7.0 mg/dL (3.5-7.2) Test 11/01/16 21:21 11/02/16 05:00 11/02/16 06:00 11/02/16 17:27 Glucose (Fingerstick) 127 mg/dL (70-99) 166 mg/dL (70-99) Sodium Level 130 mmol/L (136-145) Potassium Level 4.6 mmol/L (3.5-5.1) Chloride Level 96 mmol/L (98-107) Carbon Dioxide Level 26 mmol/L (21-32) Anion Gap 8 (6-14) Blood Urea Nitrogen 29 mg/dL (8-26) Creatinine 1.1 mg/dL (0.7-1.3) Estimated GFR (Cockcroft-Gault) 65.8 Glucose Level 140 mg/dL (70-99) Calcium Level 7.5 mg/dL (8.5-10.1) Phosphorus Level 3.0 mg/dL (2.6-4.7) Magnesium Level 1.7 mg/dL (1.8-2.4) Albumin 2.4 g/dL (3.4-5.0) White Blood Count 11.3 x10^3/uL (4.0-11.0) Red Blood Count 3.60 x10^6/uL (4.30-5.70) Hemoglobin 9.4 g/dL (13.0-17.5) Hematocrit 28.9 % (39.0-53.0) Mean Corpuscular Volume 80 fL (79-100) Mean Corpuscular Hemoglobin 26 pg (25-35) Mean Corpuscular Hemoglobin Concent 33 g/dL (31-37) Red Cell Distribution Width 18.5 % (11.5-14.5) Platelet Count 216 x10^3/uL (140-400) Neutrophils (%) (Auto) 81 % (31-73) Lymphocytes (%) (Auto) 12 % (24-48) Monocytes (%) (Auto) 6 % (0-9) Eosinophils (%) (Auto) 1 % (0-3) Basophils (%) (Auto) 0 % (0-3) Neutrophils # (Auto) 9.2 x10^3uL (1.8-7.7) Lymphocytes # (Auto) 1.3 x10^3/uL (1.0-4.8) Monocytes # (Auto) 0.7 x10^3/uL (0.0-1.1) Eosinophils # (Auto) 0.1 x10^3/uL (0.0-0.7) Basophils # (Auto) 0.0 x10^3/uL (0.0-0.2) Test 11/02/16 21:16 11/03/16 06:30 11/03/16 08:06 Glucose (Fingerstick) 177 mg/dL (70-99) 120 mg/dL (70-99) White Blood Count 9.7 x10^3/uL (4.0-11.0) Red Blood Count 3.84 x10^6/uL (4.30-5.70) Hemoglobin 9.9 g/dL (13.0-17.5) Hematocrit 30.9 % (39.0-53.0) Mean Corpuscular Volume 81 fL (79-100) Mean Corpuscular Hemoglobin 26 pg (25-35) Mean Corpuscular Hemoglobin Concent 32 g/dL (31-37) Red Cell Distribution Width 19.2 % (11.5-14.5) Platelet Count 259 x10^3/uL (140-400) Sodium Level 128 mmol/L (136-145) Potassium Level 4.4 mmol/L (3.5-5.1) Chloride Level 95 mmol/L (98-107) Carbon Dioxide Level 27 mmol/L (21-32) Anion Gap 6 (6-14) Blood Urea Nitrogen 17 mg/dL (8-26) Creatinine 0.9 mg/dL (0.7-1.3) Estimated GFR (Cockcroft-Gault) 82.9 Glucose Level 127 mg/dL (70-99) Calcium Level 7.9 mg/dL (8.5-10.1) Phosphorus Level 2.7 mg/dL (2.6-4.7) Magnesium Level 1.6 mg/dL (1.8-2.4) Albumin 2.4 g/dL (3.4-5.0) Laboratory Tests Test 11/02/16 17:27 11/02/16 21:16 11/03/16 06:30 11/03/16 08:06 Glucose (Fingerstick) 166 mg/dL (70-99) 177 mg/dL (70-99) 120 mg/dL (70-99) White Blood Count 9.7 x10^3/uL (4.0-11.0) Red Blood Count 3.84 x10^6/uL (4.30-5.70) Hemoglobin 9.9 g/dL (13.0-17.5) Hematocrit 30.9 % (39.0-53.0) Mean Corpuscular Volume 81 fL (79-100) Mean Corpuscular Hemoglobin 26 pg (25-35) Mean Corpuscular Hemoglobin Concent 32 g/dL (31-37) Red Cell Distribution Width 19.2 % (11.5-14.5) Platelet Count 259 x10^3/uL (140-400) Sodium Level 128 mmol/L (136-145) Potassium Level 4.4 mmol/L (3.5-5.1) Chloride Level 95 mmol/L (98-107) Carbon Dioxide Level 27 mmol/L (21-32) Anion Gap 6 (6-14) Blood Urea Nitrogen 17 mg/dL (8-26) Creatinine 0.9 mg/dL (0.7-1.3) Estimated GFR (Cockcroft-Gault) 82.9 Glucose Level 127 mg/dL (70-99) Calcium Level 7.9 mg/dL (8.5-10.1) Phosphorus Level 2.7 mg/dL (2.6-4.7) Magnesium Level 1.6 mg/dL (1.8-2.4) Albumin 2.4 g/dL (3.4-5.0) Medications Active Scripts Medications Dose Route/Sig Days Date Category Tamsulosin Hcl 0.4 Mg Cap.er.24h 0.4 Mg PO QHS 10/27/16 Reported Onglyza (Saxagliptin Hcl) 5 Mg Tablet 1 Tab PO DAILY 10/27/16 Reported Crestor (Rosuvastatin Calcium) 10 Mg Tablet 0.5 Tab PO DAILY 10/27/16 Reported Potassium Chloride 20 Meq Tablet.er 10 Meq PO DAILY 10/27/16 Reported Omeprazole 20 Mg Tablet.dr 1 Tab PO BID 10/27/16 Reported Nitrostat (Nitroglycerin) 0.3 Mg Tab.subl 0.3 Mg SL PRN Q5MIN PRN 10/27/16 Reported Methocarbamol 500 Mg Tablet 500 Mg PO PRN TID PRN 10/27/16 Reported [place] Ultra Strength (Menthol) 1 Each Adh..patch 1 Each TP TID 10/27/16 Reported Lisinopril 40 Mg Tablet 1 Tab PO DAILY 10/27/16 Reported Levothyroxine Sodium 125 Mcg Tablet 1 Tab PO DAILY 10/27/16 Reported Novolog Flexpen (Insulin Aspart) 100 Unit/1 Ml Insuln.pen 11 Unit SQ TIDWMEALS 10/27/16 Reported Gabapentin 300 Mg Capsule 300 Mg PO TID 10/27/16 Reported Furosemide 40 Mg Tablet 40 Mg PO BID 10/27/16 Reported Ferrous Sulfate 324 Mg Tablet.dr 324 Mg PO BID 10/27/16 Reported Cardizem Cd (Diltiazem Hcl) 300 Mg Cap.er.24h 300 Mg PO DAILY 10/27/16 Reported Vitamin D3 (Cholecalciferol (Vitamin D3)) 1,000 Unit Tablet 1 Tab PO DAILY 10/27/16 Reported Refresh Optive Advanced Drops (Carboxymethyl/Glycerin/Poly80) 10 Ml Drops 1 Drop OP PRN QID PRN 10/27/16 Reported Alphagan P (Brimonidine Tartrate) 5 Ml Drops 1 Drop EACHEYE BID 10/27/16 Reported Aspirin 325 Mg Tablet 1 Tab PO DAILY 10/27/16 Reported Albuterol Sulfate Conc Neb Soln (Albuterol Sulfate) 2.5 Mg/0.5 Ml Vial.neb 1 Vial NEB Q4HRS 10/27/16 Reported Combivent Respimat Inhal (Ipratropium/Albuterol Sulfate) 4 Gm Aer.w.adap 1 Inh IH QID 10/27/16 Reported Comments cxr reviewed, l small effusion, atelectasis Impression . 1. Acute hypoxemic respiratory failure/AECOPD/ Acute on chronic systolic/ Diastolic HF 2. Acute on chronic kidney failure. 3. Chronic heart failure, Acute on chronic systolic/ diastolic heart failure. 4. Cardiomyopathy. (EF 25 ) 5. Status post pacemaker. 6. Coronary artery disease, status post coronary artery bypass grafting. 7. Hypertension. 8. Obstructive sleep apnea. 9. Acute on chronic blood-loss anemia. 10. Metabolic acidosis, suspect secondary to renal tubular acidosis, chronic kidney disease. improved Plan . 1. BiPAP with oxygen supplementation prn/ ABG with hypoxia, 2. Venous Dopplers of the lower extremities, neg 3. Follow cardiology input/ cath severe cad, cm, pulm htn, dobutamine stopped bc of low bp 4. No need for antibiotics. 5. Monitor hemoglobin and hematocrit. 6. monitor k d/w RN/RT, pt SAIRA GUPTA MD November 03, 2016 11:25
--- NOTE | 2016-11-03 12:38 | PDOC ---
Objective: Objective: Per RN - no GI concerns, has been hypotensive. Vital Signs: Vital Signs Date Time Temp Pulse Resp B/P (MAP) Pulse Ox O2 Delivery O2 Flow Rate FiO2 11/03/16 12:00 98.5 71 21 85/54 (64) 94 Nasal Cannula 4.0 98.5 Labs: Laboratory Tests Test 11/02/16 17:27 11/02/16 21:16 11/03/16 06:30 11/03/16 08:06 Glucose (Fingerstick) 166 mg/dL 177 mg/dL 120 mg/dL White Blood Count 9.7 x10^3/uL Red Blood Count 3.84 x10^6/uL Hemoglobin 9.9 g/dL Hematocrit 30.9 % Mean Corpuscular Volume 81 fL Mean Corpuscular Hemoglobin 26 pg Mean Corpuscular Hemoglobin Concent 32 g/dL Red Cell Distribution Width 19.2 % Platelet Count 259 x10^3/uL Sodium Level 128 mmol/L Potassium Level 4.4 mmol/L Chloride Level 95 mmol/L Carbon Dioxide Level 27 mmol/L Anion Gap 6 Blood Urea Nitrogen 17 mg/dL Creatinine 0.9 mg/dL Estimated GFR (Cockcroft-Gault) 82.9 Glucose Level 127 mg/dL Calcium Level 7.9 mg/dL Phosphorus Level 2.7 mg/dL Magnesium Level 1.6 mg/dL Albumin 2.4 g/dL Test 11/03/16 12:25 Glucose (Fingerstick) 112 mg/dL PE: GEN: NAD LUNGS: coarse HEART: S1S2 ABD: NABS, S/ND/NT NEURO/PSYCH: asleep, did not awaken during exam A/P: NEHEMIAH Heart and resp failure, hypotension -- Continue same per GI. CECILIA DOWD November 03, 2016 12:38
[2016-11-03 13:29] LABS: BILIRUBIN,URINE NEGATIVE (NEG); GLUCOSE,URINE NEGATIVE (NEG); NITRITE,URINE NEGATIVE (NEG); PROTEIN,URINE 30 mg/dL (NEG-TRACE)
[2016-11-03 14:02] LABS: BACTERIA,URINE FEW /HPF (0-FEW); WBC,URINE RARE /HPF (0-4)
--- NOTE | 2016-11-03 15:25 | PDOC ---
PROGRESS NOTES Subjective Subjective The patient has no new complaints today however he has been hypotensive. He has been asymptomatic with the hypotension. 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 In addition to that he has severe pulmonary hypertension and chronic renal insufficiency. This all chronic lifelong problems that are going to significantly affect the patient's long-term prognosis. I would recommend for this patient to be set up for intermittent dobutamine infusions twice a week for life. This is probably going to represent a significant improvement in quality of life. Whether this is going to need to be done in addition to dialysis dependence on his renal function and how he responds some whether or not he may have to be on dialysis for the rest of his life also. The dobutamine drip would be at 5 mics per KG per minute 3 hours twice a week. The patient may be transferred to a telemetry floor. We need to increase his activity and I would like to wean off the dobutamine drip today to see how he does. Problems Medical Problems: (1) CHF exacerbation Status: Acute Comment Review of Relevant I have reviewed the following items dorian (where applicable) has been applied. Labs Laboratory Tests Test 11/01/16 16:35 11/01/16 21:21 11/02/16 05:00 11/02/16 06:00 Glucose (Fingerstick) 224 mg/dL (70-99) 127 mg/dL (70-99) Sodium Level 130 mmol/L (136-145) Potassium Level 4.6 mmol/L (3.5-5.1) Chloride Level 96 mmol/L (98-107) Carbon Dioxide Level 26 mmol/L (21-32) Anion Gap 8 (6-14) Blood Urea Nitrogen 29 mg/dL (8-26) Creatinine 1.1 mg/dL (0.7-1.3) Estimated GFR (Cockcroft-Gault) 65.8 Glucose Level 140 mg/dL (70-99) Calcium Level 7.5 mg/dL (8.5-10.1) Phosphorus Level 3.0 mg/dL (2.6-4.7) Magnesium Level 1.7 mg/dL (1.8-2.4) Albumin 2.4 g/dL (3.4-5.0) White Blood Count 11.3 x10^3/uL (4.0-11.0) Red Blood Count 3.60 x10^6/uL (4.30-5.70) Hemoglobin 9.4 g/dL (13.0-17.5) Hematocrit 28.9 % (39.0-53.0) Mean Corpuscular Volume 80 fL (79-100) Mean Corpuscular Hemoglobin 26 pg (25-35) Mean Corpuscular Hemoglobin Concent 33 g/dL (31-37) Red Cell Distribution Width 18.5 % (11.5-14.5) Platelet Count 216 x10^3/uL (140-400) Neutrophils (%) (Auto) 81 % (31-73) Lymphocytes (%) (Auto) 12 % (24-48) Monocytes (%) (Auto) 6 % (0-9) Eosinophils (%) (Auto) 1 % (0-3) Basophils (%) (Auto) 0 % (0-3) Neutrophils # (Auto) 9.2 x10^3uL (1.8-7.7) Lymphocytes # (Auto) 1.3 x10^3/uL (1.0-4.8) Monocytes # (Auto) 0.7 x10^3/uL (0.0-1.1) Eosinophils # (Auto) 0.1 x10^3/uL (0.0-0.7) Basophils # (Auto) 0.0 x10^3/uL (0.0-0.2) Test 11/02/16 17:27 11/02/16 21:16 11/03/16 06:30 11/03/16 08:06 Glucose (Fingerstick) 166 mg/dL (70-99) 177 mg/dL (70-99) 120 mg/dL (70-99) White Blood Count 9.7 x10^3/uL (4.0-11.0) Red Blood Count 3.84 x10^6/uL (4.30-5.70) Hemoglobin 9.9 g/dL (13.0-17.5) Hematocrit 30.9 % (39.0-53.0) Mean Corpuscular Volume 81 fL (79-100) Mean Corpuscular Hemoglobin 26 pg (25-35) Mean Corpuscular Hemoglobin Concent 32 g/dL (31-37) Red Cell Distribution Width 19.2 % (11.5-14.5) Platelet Count 259 x10^3/uL (140-400) Sodium Level 128 mmol/L (136-145) Potassium Level 4.4 mmol/L (3.5-5.1) Chloride Level 95 mmol/L (98-107) Carbon Dioxide Level 27 mmol/L (21-32) Anion Gap 6 (6-14) Blood Urea Nitrogen 17 mg/dL (8-26) Creatinine 0.9 mg/dL (0.7-1.3) Estimated GFR (Cockcroft-Gault) 82.9 Glucose Level 127 mg/dL (70-99) Calcium Level 7.9 mg/dL (8.5-10.1) Phosphorus Level 2.7 mg/dL (2.6-4.7) Magnesium Level 1.6 mg/dL (1.8-2.4) Albumin 2.4 g/dL (3.4-5.0) Test 11/03/16 12:25 11/03/16 12:42 Glucose (Fingerstick) 112 mg/dL (70-99) Urine Collection Type U cath Urine Color Dk yellow Urine Clarity Clear Urine pH 8.0 Urine Specific Shafer 1.025 Urine Protein 30 mg/dL (NEG-TRACE) Urine Glucose (UA) Negative mg/dL (NEG) Urine Ketones (Stick) Negative mg/dL (NEG) Urine Blood Moderate (NEG) Urine Nitrite Negative (NEG) Urine Bilirubin Negative (NEG) Urine Urobilinogen Dipstick 4.0 mg/dL (0.2 mg/dL) Urine Leukocyte Esterase Negative (NEG) Urine RBC 11-20 /HPF (0-2) Urine WBC Rare /HPF (0-4) Urine Squamous Epithelial Cells None /LPF Urine Bacteria Few /HPF (0-FEW) Urine Mucus Slight /LPF Laboratory Tests Test 11/02/16 17:27 11/02/16 21:16 11/03/16 06:30 11/03/16 08:06 Glucose (Fingerstick) 166 mg/dL (70-99) 177 mg/dL (70-99) 120 mg/dL (70-99) White Blood Count 9.7 x10^3/uL (4.0-11.0) Red Blood Count 3.84 x10^6/uL (4.30-5.70) Hemoglobin 9.9 g/dL (13.0-17.5) Hematocrit 30.9 % (39.0-53.0) Mean Corpuscular Volume 81 fL (79-100) Mean Corpuscular Hemoglobin 26 pg (25-35) Mean Corpuscular Hemoglobin Concent 32 g/dL (31-37) Red Cell Distribution Width 19.2 % (11.5-14.5) Platelet Count 259 x10^3/uL (140-400) Sodium Level 128 mmol/L (136-145) Potassium Level 4.4 mmol/L (3.5-5.1) Chloride Level 95 mmol/L (98-107) Carbon Dioxide Level 27 mmol/L (21-32) Anion Gap 6 (6-14) Blood Urea Nitrogen 17 mg/dL (8-26) Creatinine 0.9 mg/dL (0.7-1.3) Estimated GFR (Cockcroft-Gault) 82.9 Glucose Level 127 mg/dL (70-99) Calcium Level 7.9 mg/dL (8.5-10.1) Phosphorus Level 2.7 mg/dL (2.6-4.7) Magnesium Level 1.6 mg/dL (1.8-2.4) Albumin 2.4 g/dL (3.4-5.0) Test 11/03/16 12:25 11/03/16 12:42 Glucose (Fingerstick) 112 mg/dL (70-99) Urine Collection Type U cath Urine Color Dk yellow Urine Clarity Clear Urine pH 8.0 Urine Specific [place]fer 1.025 Urine Protein 30 mg/dL (NEG-TRACE) Urine Glucose (UA) Negative mg/dL (NEG) Urine Ketones (Stick) Negative mg/dL (NEG) Urine Blood Moderate (NEG) Urine Nitrite Negative (NEG) Urine Bilirubin Negative (NEG) Urine Urobilinogen Dipstick 4.0 mg/dL (0.2 mg/dL) Urine Leukocyte Esterase Negative (NEG) Urine RBC 11-20 /HPF (0-2) Urine WBC Rare /HPF (0-4) Urine Squamous Epithelial Cells None /LPF Urine Bacteria Few /HPF (0-FEW) Urine Mucus Slight /LPF Microbiology 10/27/16 Urine Culture - Final, Complete 10/27/16 Urine Culture Result 1 (JANEL) - Final, Complete Medications Current Medications Pantoprazole Sodium (Protonix Vial) 40 mg DAILYAC IVP Last administered on 08:32; Start 10/26/16 at 17:00; Stop 10/30/16 at 11:57; Status DC Dobutamine HCl/ Dextrose 250 ml @ 0 mls/hr CONT PRN IV SEE I/O RECORD Last administered on 10/29/16 03:02; Start 10/26/16 at 17:00; Stop 10/30/16 at 10:57 ; Status DC Furosemide (Lasix) 60 mg 1X ONCE IVP Last administered on 10/27/16 08:15; Start 10/27/16 at 08:30; Stop 10/27/16 at 08:31; Status DC Sodium Bicarbonate 50 meq Q2HR IV Last administered on 10/27/16 12:38; Start 10/27/16 at 10:00; Stop 10/27/16 at 12:01; Status DC Albuterol/ Ipratropium (Duoneb) 3 ml RTQID NEB Last administered on 11/03/16 11 :45; Start 10/27/16 at 12:00 Heparin Sodium (Porcine) (Heparin Sodium) 10,000 unit STK-MED ONCE .ROUTE ; Start 10/27/16 at 10:01; Stop 10/27/16 at 10:02; Status DC Lidocaine/Sodium Bicarbonate (Buffered Lidocaine 1%) 20 ml STK-MED ONCE IJ ; Start 10/27/16 at 10:01; Stop 10/27/16 at 10:02; Status DC Heparin Sodium/ Sodium Chloride 500 ml @ As Directed STK-MED ONCE .ROUTE ; Start 10/27/16 at 10:01; Stop 10/27/16 at 10:02; Status DC Lidocaine/Sodium Bicarbonate (Buffered Lidocaine 1%) 3 ml 1X ONCE IJ Last administered on 10/27/16 12:16; Start 10/27/16 at 10:15; Stop 10/27/16 at 10:16 ; Status DC Heparin Sodium/ Sodium Chloride 60 unit 1X ONCE IV Last administered on 12:14; Start 10/27/16 at 10:15; Stop 10/27/16 at 10:16; Status DC Heparin Sodium (Porcine) (Heparin Sodium) 2,500 unit 1X ONCE INT CAT Last administered on 10/27/16 12:16; Start 10/27/16 at 10:15; Stop 10/27/16 at 10:16 ; Status DC Aspirin (Krystian Aspirin) 325 mg DAILY PO Last administered on 11/03/16 08:50; Start 10/27/16 at 12:00 Vitamin D (Vitamin D3) 1,000 unit DAILY PO Last administered on 11/03/16 08:51 ; Start 10/27/16 at 12:00 Diltiazem HCl (Cardizem Cd) 300 mg DAILY PO Last administered on 11/03/16 08:50 ; Start 10/27/16 at 12:00 Furosemide (Lasix) 40 mg [id number] PO Last administered on 10/28/16 17:13; Start 10/27/16 at 12:00; Stop 10/29/16 at 07:12; Status DC Insulin Aspart (Novolog) 11 units TIDWMEALS SQ Last administered on 11/03/16 12 :47; Start 10/27/16 at 12:00 Levothyroxine Sodium (Synthroid) 125 mcg DAILY07 PO Last administered on 06:57; Start 10/27/16 at 12:00 Lisinopril (Prinivil) 40 mg DAILY PO Last administered on 11/03/16 08:50; Start 10/27/16 at 12:00 Methocarbamol (Robaxin) 500 mg PRN TID PRN PO MUSCLE SPASMS Last administered on 11/02/16 00:33; Start 10/27/16 at 11:15 Tamsulosin HCl (Flomax) 0.4 mg QHS PO Last administered on 11/02/16 20:26; Start 10/27/16 at 21:00 Albuterol Sulfate (Ventolin Neb Soln) 2.5 mg PRN Q4HRS PRN NEB SHORTNESS OF BREATH Last administered on 10/30/16 01:38; Start 10/27/16 at 11:30 Brimonidine Tartrate (Alphagan) 1 drop BID OU Last administered on 11/03/16 08: 49; Start 10/27/16 at 12:00 Artificial Tears (Artificial Tears) 1 drop PRN Q15MIN PRN OU DRY EYE; Start at 11:30 Ferrous Sulfate (Feosol) 325 mg BIDWMEALS PO Last administered on 11/03/16 08: 51; Start 10/27/16 at 12:00 Gabapentin (Neurontin) 300 mg BID PO Last administered on 11/03/16 08:50; Start 10/27/16 at 12:00 Non-Formulary Medication 1 inh QID IH ; Start 10/27/16 at 13:00; Status UNV Non-Formulary Medication 1 each TID TP ; Start 10/27/16 at 14:00; Status UNV Non-Formulary Medication 1 tab BID PO ; Start 10/27/16 at 21:00; Status UNV Potassium Chloride (Klor-Con) 10 meq [id number] PO Last administered on 08:51; Start 10/28/16 at 08:00 Atorvastatin Calcium (Lipitor) 20 mg QHS PO Last administered on 11/02/16 20:26 ; Start 10/27/16 at 21:00 Linagliptin (Tradjenta) 5 mg DAILY PO Last administered on 11/03/16 08:51; Start 10/27/16 at 12:00 Furosemide (Lasix) 60 mg 1X ONCE IVP ; Start 10/28/16 at 08:00; Stop 10/28/16 at 08:01; Status DC Sodium Bicarbonate 50 meq Q2HR IV Last administered on 10/29/16 10:14; Start 10/29/16 at 08:00; Stop 10/29/16 at 10:01; Status DC Sodium Bicarbonate 150 meq/Sterile Water 1,150 ml @ 80 mls/hr [id number] PRN IV . Last administered on 10/29/16 16:41; Start 10/29/16 at 07:45; Stop 10/30/16 at 12:28; Status DC Sodium Chloride 500 ml @ 30 mls/hr CONT PRN PRN IV see comments; Start at 07:45; Stop 10/30/16 at 12:28; Status DC Acetaminophen (Tylenol) 650 mg PRN Q6HRS PRN PO PAIN Last administered on 16:52; Start 10/29/16 at 11:15 Nystatin (Nystop) 1 summer TID PRN PRN TP REDNESS; Start 10/29/16 at 11:15 Multi-Ingredient Ointment (Analgesic [place]) 1 summer PRN QID PRN TP MUSCLE PAIN Last administered on 10/30/16 16:52; Start 10/29/16 at 11:15 Magnesium Sulfate/ Dextrose 50 ml @ 25 mls/hr PRN DAILY PRN IV for Mag < 1.7 on am labs; Start 10/30/16 at 09:45 Dobutamine HCl/ Dextrose 250 ml @ 0 mls/hr CONT PRN IV SEE I/O RECORD Last administered on 11/01/16 18:04; Start 10/30/16 at 11:00; Stop 11/03/16 at 11:16; Status DC Pantoprazole Sodium (Protonix) 40 mg DAILYAC PO Last administered on 11/03/16 08:51; Start 10/31/16 at 07:30 Iron Sucrose 200 mg/Sodium Chloride 110 ml @ 55 mls/hr 3X/WEEK IV Last administered on 11/03/16 08:54; Start 11/01/16 at 09:00; Stop 11/10/16 at 10:59 Sodium Chloride 500 ml @ 30 mls/hr CONT PRN PRN IV see comments Last administered on 11/01/16 03:29; Start 10/31/16 at 09:00 Acetaminophen/ Hydrocodone Bitart (Lortab 5/325) 1 tab PRN Q4HRS PRN PO PAIN Last administered on 11/02/16 20:27; Start 10/31/16 at 20:30 Furosemide (Lasix) 20 mg 1X ONCE IVP ; Start 11/01/16 at 15:45; Stop 11/01/16 at 16:05; Status DC Furosemide (Lasix) 20 mg 1X ONCE IVP Last administered on 11/01/16 21:15; Start 11/01/16 at 21:15; Stop 11/01/16 at 21:16; Status DC Magnesium Sulfate/ Dextrose 100 ml @ 100 mls/hr 1X ONCE IV Last administered on 11/02/16 09:45; Start 11/02/16 at 09:45; Stop 11/02/16 at 10:44; Status DC Sodium Acetate 75 meq/Sodium Chloride 1,037.5 ml @ 75 mls/hr [id number] IV Last administered on 11/03/16 01:24; Start 11/02/16 at 10:00 Acetylcysteine (Mucomyst 20% Oral Solution) 1,200 mg BID PO Last administered on 11/03/16 08:52; Start 11/02/16 at 09:45; Stop 11/04/16 at 09:44 Heparin Sodium/ Sodium Chloride 500 ml @ As Directed STK-MED ONCE .ROUTE ; Start 11/02/16 at 12:13; Stop 11/02/16 at 12:14; Status DC Lidocaine HCl 20 ml STK-MED ONCE .ROUTE ; Start 11/02/16 at 12:13; Stop 11/02/16 at 12:14; Status DC Iodixanol (Visipaque 320) 100 ml STK-MED ONCE .ROUTE ; Start 11/02/16 at 12:13; Stop 11/02/16 at 12:14; Status DC Midazolam HCl (Versed) 2 mg STK-MED ONCE .ROUTE ; Start 11/02/16 at 13:10; Stop 11/02/16 at 13:11; Status DC Fentanyl Citrate (Fentanyl 2ml Vial) 100 mcg STK-MED ONCE .ROUTE ; Start at 13:10; Stop 11/02/16 at 13:11; Status DC Lidocaine HCl 20 ml 1X ONCE IJ Last administered on 11/02/16 13:51; Start 11/02 at 13:30; Stop 11/02/16 at 13:32; Status DC Heparin Sodium/ Sodium Chloride 1,000 unit 1X ONCE IV Last administered on 11/02 13:51; Start 11/02/16 at 13:30; Stop 11/02/16 at 13:32; Status DC Fentanyl Citrate (Fentanyl 2ml Vial) 25 mcg 1X ONCE IV Last administered on 13:52; Start 11/02/16 at 13:30; Stop 11/02/16 at 13:32; Status DC Midazolam HCl (Versed) 1 mg 1X ONCE IV Last administered on 11/02/16 13:52; Start 11/02/16 at 13:30; Stop 11/02/16 at 13:32; Status DC Iodixanol (Visipaque 320) 100 ml 1X ONCE IART Last administered on 11/02/16 13 :52; Start 11/02/16 at 13:30; Stop 11/02/16 at 13:32; Status DC Info (Do NOT chart on this entry -- for MONITORING) 1 each PRN DAILY PRN MC SEE COMMENTS; Start 11/02/16 at 13:45; Stop 11/04/16 at 13:44 Iodixanol (Visipaque 320) 100 ml STK-MED ONCE .ROUTE ; Start 11/02/16 at 13:35; Stop 11/02/16 at 13:36; Status DC Magnesium Sulfate/ Dextrose 50 ml @ 25 mls/hr 1X ONCE IV Last administered on 11/03/16 11:12; Start 11/03/16 at 11:00; Stop 11/03/16 at 12:59; Status DC Sodium Chloride 500 ml @ 500 mls/hr 1X ONCE IV ; Start 11/03/16 at 10:45; Stop 11/03/16 at 11:44; Status DC Albumin Human 500 ml @ 125 mls/hr 1X ONCE IV Last administered on 11/03/16 12 :23; Start 11/03/16 at 11:15; Stop 11/03/16 at 15:14; Status DC Active Scripts Active Reported Tamsulosin Hcl 0.4 Mg Cap.er.24h 0.4 Mg PO QHS Onglyza (Saxagliptin Hcl) 5 Mg Tablet 1 Tab PO DAILY Crestor (Rosuvastatin Calcium) 10 Mg Tablet 0.5 Tab PO DAILY Potassium Chloride 20 Meq Tablet.er 10 Meq PO DAILY Omeprazole 20 Mg Tablet.dr 1 Tab PO BID Nitrostat (Nitroglycerin) 0.3 Mg Tab.subl 0.3 Mg SL PRN Q5MIN PRN Methocarbamol 500 Mg Tablet 500 Mg PO PRN TID PRN [place] Ultra Strength (Menthol) 1 Each Adh..patch 1 Each TP TID Lisinopril 40 Mg Tablet 1 Tab PO DAILY Levothyroxine Sodium 125 Mcg Tablet 1 Tab PO DAILY Novolog Flexpen (Insulin Aspart) 100 Unit/1 Ml Insuln.pen 11 Unit SQ TIDWMEALS Gabapentin 300 Mg Capsule 300 Mg PO TID Furosemide 40 Mg Tablet 40 Mg PO BID Ferrous Sulfate 324 Mg Tablet.dr 324 Mg PO BID Cardizem Cd (Diltiazem Hcl) 300 Mg Cap.er.24h 300 Mg PO DAILY Vitamin D3 (Cholecalciferol (Vitamin D3)) 1,000 Unit Tablet 1 Tab PO DAILY Refresh Optive Advanced Drops (Carboxymethyl/Glycerin/Poly80) 10 Ml Drops 1 Drop OP PRN QID PRN Alphagan P (Brimonidine Tartrate) 5 Ml Drops 1 Drop EACHEYE BID Aspirin 325 Mg Tablet 1 Tab PO DAILY Albuterol Sulfate Conc Neb Soln (Albuterol Sulfate) 2.5 Mg/0.5 Ml Vial.neb 1 Vial NEB Q4HRS Combivent Respimat Inhal (Ipratropium/Albuterol Sulfate) 4 Gm Aer.w.adap 1 Inh IH QID Vitals/I & O Vital Sign - Last 24 Hours 11/02/16 11/02/16 11/02/16 11/02/16 15:51 16:00 16:00 17:00 Temp 98.4 98.4 Pulse 75 71 Resp 21 20 B/P (MAP) 118/64 (82) 127/64 (85) Pulse Ox 94 95 97 O2 Delivery Nasal Cannula Nasal Cannula Bi-pap Nasal Cannula O2 Flow Rate 7.0 5.0 5.0 11/02/16 11/02/16 11/02/16 11/02/16 18:00 19:00 20:00 20:00 Temp 99.8 99.8 Pulse 76 76 74 Resp 20 36 38 B/P (MAP) 126/67 (86) 125/52 (76) 140/64 (89) Pulse Ox 98 97 95 O2 Delivery Nasal Cannula Nasal Cannula Nasal Cannula Nasal Cannula O2 Flow Rate 5.0 5.0 5.0 5.0 11/02/16 11/02/16 11/02/16 11/02/16 20:14 20:27 21:00 21:27 Pulse 76 Resp 24 40 32 B/P (MAP) 128/64 (85) Pulse Ox 95 98 97 95 O2 Delivery Nasal Cannula Nasal Cannula Nasal Cannula Nasal Cannula O2 Flow Rate 7.0 5.0 5.0 5.0 5/411/02/16 11/03/16 11/03/16 22:00 23:00 00:00 00:00 Temp 99.5 99.5 Pulse 76 76 76 Resp 30 33 22 B/P (MAP) 113/57 (75) 96/47 (63) 100/53 (69) Pulse Ox 95 97 95 O2 Delivery Nasal Cannula Nasal Cannula BiPAP/CPAP Bi-pap O2 Flow Rate 5.0 5.0 11/03/16 11/03/16 11/03/16 11/03/16 01:00 02:00 03:00 03:30 Pulse 75 76 75 Resp 25 26 22 B/P (MAP) 119/62 (81) 110/72 (85) 119/68 (85) Pulse Ox 99 100 98 100 O2 Delivery BiPAP/CPAP BiPAP/CPAP BiPAP/CPAP BiPAP/CPAP 11/03/16 11/03/16 11/03/16 11/03/16 04:00 04:00 05:00 05:42 Pulse 74 66 Resp 35 38 B/P (MAP) 123/65 (84) 127/63 (84) Pulse Ox 98 100 100 O2 Delivery Bi-pap Nasal Cannula Nasal Cannula BiPAP/CPAP O2 Flow Rate 5.0 5.0 11/03/16 11/03/16 11/03/16 11/03/16 06:00 07:00 07:40 08:00 Temp 99.2 100.6 99.2 100.6 Pulse 76 72 71 Resp 30 30 22 B/P (MAP) 138/62 (87) 143/60 (87) 120/64 (82) Pulse Ox 100 100 100 92 O2 Delivery BiPAP/CPAP BiPAP/CPAP BiPAP/CPAP BiPAP/CPAP 11/03/16 11/03/16 11/03/16 11/03/16 08:00 08:50 08:50 09:00 Pulse 71 71 71 Resp 26 B/P (MAP) 120/65 120/65 119/53 (75) Pulse Ox 95 O2 Delivery Bi-pap Nasal Cannula O2 Flow Rate 5.0 11/03/16 11/03/16 11/03/16 11/03/16 10:00 11:00 11:49 12:00 Pulse 71 71 Resp 24 25 B/P (MAP) 74/50 (58) 80/49 (59) Pulse Ox 95 97 95 O2 Delivery Nasal Cannula Nasal Cannula Nasal Cannula Nasal Cannula O2 Flow Rate 5.0 5.0 4.0 4.0 11/03/16 12:00 Temp 98.5 98.5 Pulse 71 Resp 21 B/P (MAP) 85/54 (64) Pulse Ox 94 O2 Delivery Nasal Cannula O2 Flow Rate 4.0 Intake and Output 11/02/16 11/02/16 11/03/16 15:00 23:00 07:00 Intake Total 100 ml 1145.62 ml 1120 ml Output Total 455 ml 855 ml 610 ml Balance -355 ml 290.62 ml 510 ml WENDIE ANGEL MD November 03, 2016 15:25
--- NOTE | 2016-11-03 15:28 | PDOC ---
PROGRESS NOTES Chief Complaint Chief Complaint cc:CHF exacerbation GI bleed, anemia malnutrition acute renal failure on CKD 3 , w/ iron deficiency CAD, angina, Hx CABG DM2, Hypertension Hyperlipidemia weakness and debility History of Present Illness History of Present Illness awake, was up to chair talkative and pleasant, no new complaint feels improved Vitals Vitals Vital Signs Date Time Temp Pulse Resp B/P (MAP) Pulse Ox O2 Delivery O2 Flow Rate FiO2 11/03/16 15:24 96 Nasal Cannula 4.0 11/03/16 12:00 98.5 71 21 85/54 (64) 98.5 Physical Exam General: Alert, Cooperative, No acute distress, Other (oriented 2/3) Heart: Regular rate, Normal S1, Normal S2, No murmurs Lungs: Crackles, Other (few rhonchi) Abdomen: Normal bowel sounds, Soft Extremities: No clubbing, Normal pulses Skin: No rashes, No breakdown Labs LABS Laboratory Tests Test 11/02/16 17:27 11/02/16 21:16 11/03/16 06:30 11/03/16 08:06 Glucose (Fingerstick) 166 mg/dL (70-99) 177 mg/dL (70-99) 120 mg/dL (70-99) White Blood Count 9.7 x10^3/uL (4.0-11.0) Red Blood Count 3.84 x10^6/uL (4.30-5.70) Hemoglobin 9.9 g/dL (13.0-17.5) Hematocrit 30.9 % (39.0-53.0) Mean Corpuscular Volume 81 fL (79-100) Mean Corpuscular Hemoglobin 26 pg (25-35) Mean Corpuscular Hemoglobin Concent 32 g/dL (31-37) Red Cell Distribution Width 19.2 % (11.5-14.5) Platelet Count 259 x10^3/uL (140-400) Sodium Level 128 mmol/L (136-145) Potassium Level 4.4 mmol/L (3.5-5.1) Chloride Level 95 mmol/L (98-107) Carbon Dioxide Level 27 mmol/L (21-32) Anion Gap 6 (6-14) Blood Urea Nitrogen 17 mg/dL (8-26) Creatinine 0.9 mg/dL (0.7-1.3) Estimated GFR (Cockcroft-Gault) 82.9 Glucose Level 127 mg/dL (70-99) Calcium Level 7.9 mg/dL (8.5-10.1) Phosphorus Level 2.7 mg/dL (2.6-4.7) Magnesium Level 1.6 mg/dL (1.8-2.4) Albumin 2.4 g/dL (3.4-5.0) Test 11/03/16 12:25 11/03/16 12:42 Glucose (Fingerstick) 112 mg/dL (70-99) Urine Collection Type U cath Urine Color Dk yellow Urine Clarity Clear Urine pH 8.0 Urine Specific [place] 1.025 Urine Protein 30 mg/dL (NEG-TRACE) Urine Glucose (UA) Negative mg/dL (NEG) Urine Ketones (Stick) Negative mg/dL (NEG) Urine Blood Moderate (NEG) Urine Nitrite Negative (NEG) Urine Bilirubin Negative (NEG) Urine Urobilinogen Dipstick 4.0 mg/dL (0.2 mg/dL) Urine Leukocyte Esterase Negative (NEG) Urine RBC 11-20 /HPF (0-2) Urine WBC Rare /HPF (0-4) Urine Squamous Epithelial Cells None /LPF Urine Bacteria Few /HPF (0-FEW) Urine Mucus Slight /LPF Assessment and Plan Assessmemt and Plan Problems Medical Problems: (1) CHF exacerbation Status: Acute Problems: Comment Review of Relevant I have reviewed the following items dorian (where applicable) has been applied. Labs Laboratory Tests Test 11/01/16 16:35 11/01/16 21:21 11/02/16 05:00 11/02/16 06:00 Glucose (Fingerstick) 224 mg/dL (70-99) 127 mg/dL (70-99) Sodium Level 130 mmol/L (136-145) Potassium Level 4.6 mmol/L (3.5-5.1) Chloride Level 96 mmol/L (98-107) Carbon Dioxide Level 26 mmol/L (21-32) Anion Gap 8 (6-14) Blood Urea Nitrogen 29 mg/dL (8-26) Creatinine 1.1 mg/dL (0.7-1.3) Estimated GFR (Cockcroft-Gault) 65.8 Glucose Level 140 mg/dL (70-99) Calcium Level 7.5 mg/dL (8.5-10.1) Phosphorus Level 3.0 mg/dL (2.6-4.7) Magnesium Level 1.7 mg/dL (1.8-2.4) Albumin 2.4 g/dL (3.4-5.0) White Blood Count 11.3 x10^3/uL (4.0-11.0) Red Blood Count 3.60 x10^6/uL (4.30-5.70) Hemoglobin 9.4 g/dL (13.0-17.5) Hematocrit 28.9 % (39.0-53.0) Mean Corpuscular Volume 80 fL (79-100) Mean Corpuscular Hemoglobin 26 pg (25-35) Mean Corpuscular Hemoglobin Concent 33 g/dL (31-37) Red Cell Distribution Width 18.5 % (11.5-14.5) Platelet Count 216 x10^3/uL (140-400) Neutrophils (%) (Auto) 81 % (31-73) Lymphocytes (%) (Auto) 12 % (24-48) Monocytes (%) (Auto) 6 % (0-9) Eosinophils (%) (Auto) 1 % (0-3) Basophils (%) (Auto) 0 % (0-3) Neutrophils # (Auto) 9.2 x10^3uL (1.8-7.7) Lymphocytes # (Auto) 1.3 x10^3/uL (1.0-4.8) Monocytes # (Auto) 0.7 x10^3/uL (0.0-1.1) Eosinophils # (Auto) 0.1 x10^3/uL (0.0-0.7) Basophils # (Auto) 0.0 x10^3/uL (0.0-0.2) Test 11/02/16 17:27 11/02/16 21:16 11/03/16 06:30 11/03/16 08:06 Glucose (Fingerstick) 166 mg/dL (70-99) 177 mg/dL (70-99) 120 mg/dL (70-99) White Blood Count 9.7 x10^3/uL (4.0-11.0) Red Blood Count 3.84 x10^6/uL (4.30-5.70) Hemoglobin 9.9 g/dL (13.0-17.5) Hematocrit 30.9 % (39.0-53.0) Mean Corpuscular Volume 81 fL (79-100) Mean Corpuscular Hemoglobin 26 pg (25-35) Mean Corpuscular Hemoglobin Concent 32 g/dL (31-37) Red Cell Distribution Width 19.2 % (11.5-14.5) Platelet Count 259 x10^3/uL (140-400) Sodium Level 128 mmol/L (136-145) Potassium Level 4.4 mmol/L (3.5-5.1) Chloride Level 95 mmol/L (98-107) Carbon Dioxide Level 27 mmol/L (21-32) Anion Gap 6 (6-14) Blood Urea Nitrogen 17 mg/dL (8-26) Creatinine 0.9 mg/dL (0.7-1.3) Estimated GFR (Cockcroft-Gault) 82.9 Glucose Level 127 mg/dL (70-99) Calcium Level 7.9 mg/dL (8.5-10.1) Phosphorus Level 2.7 mg/dL (2.6-4.7) Magnesium Level 1.6 mg/dL (1.8-2.4) Albumin 2.4 g/dL (3.4-5.0) Test 11/03/16 12:25 11/03/16 12:42 Glucose (Fingerstick) 112 mg/dL (70-99) Urine Collection Type U cath Urine Color Dk yellow Urine Clarity Clear Urine pH 8.0 Urine Specific [place] 1.025 Urine Protein 30 mg/dL (NEG-TRACE) Urine Glucose (UA) Negative mg/dL (NEG) Urine Ketones (Stick) Negative mg/dL (NEG) Urine Blood Moderate (NEG) Urine Nitrite Negative (NEG) Urine Bilirubin Negative (NEG) Urine Urobilinogen Dipstick 4.0 mg/dL (0.2 mg/dL) Urine Leukocyte Esterase Negative (NEG) Urine RBC 11-20 /HPF (0-2) Urine WBC Rare /HPF (0-4) Urine Squamous Epithelial Cells None /LPF Urine Bacteria Few /HPF (0-FEW) Urine Mucus Slight /LPF Laboratory Tests Test 11/02/16 17:27 11/02/16 21:16 11/03/16 06:30 11/03/16 08:06 Glucose (Fingerstick) 166 mg/dL (70-99) 177 mg/dL (70-99) 120 mg/dL (70-99) White Blood Count 9.7 x10^3/uL (4.0-11.0) Red Blood Count 3.84 x10^6/uL (4.30-5.70) Hemoglobin 9.9 g/dL (13.0-17.5) Hematocrit 30.9 % (39.0-53.0) Mean Corpuscular Volume 81 fL (79-100) Mean Corpuscular Hemoglobin 26 pg (25-35) Mean Corpuscular Hemoglobin Concent 32 g/dL (31-37) Red Cell Distribution Width 19.2 % (11.5-14.5) Platelet Count 259 x10^3/uL (140-400) Sodium Level 128 mmol/L (136-145) Potassium Level 4.4 mmol/L (3.5-5.1) Chloride Level 95 mmol/L (98-107) Carbon Dioxide Level 27 mmol/L (21-32) Anion Gap 6 (6-14) Blood Urea Nitrogen 17 mg/dL (8-26) Creatinine 0.9 mg/dL (0.7-1.3) Estimated GFR (Cockcroft-Gault) 82.9 Glucose Level 127 mg/dL (70-99) Calcium Level 7.9 mg/dL (8.5-10.1) Phosphorus Level 2.7 mg/dL (2.6-4.7) Magnesium Level 1.6 mg/dL (1.8-2.4) Albumin 2.4 g/dL (3.4-5.0) Test 11/03/16 12:25 11/03/16 12:42 Glucose (Fingerstick) 112 mg/dL (70-99) Urine Collection Type U cath Urine Color Dk yellow Urine Clarity Clear Urine pH 8.0 Urine Specific [place] 1.025 Urine Protein 30 mg/dL (NEG-TRACE) Urine Glucose (UA) Negative mg/dL (NEG) Urine Ketones (Stick) Negative mg/dL (NEG) Urine Blood Moderate (NEG) Urine Nitrite Negative (NEG) Urine Bilirubin Negative (NEG) Urine Urobilinogen Dipstick 4.0 mg/dL (0.2 mg/dL) Urine Leukocyte Esterase Negative (NEG) Urine RBC 11-20 /HPF (0-2) Urine WBC Rare /HPF (0-4) Urine Squamous Epithelial Cells None /LPF Urine Bacteria Few /HPF (0-FEW) Urine Mucus Slight /LPF Microbiology 10/27/16 Urine Culture - Final, Complete 10/27/16 Urine Culture Result 1 (JANEL) - Final, Complete Medications Current Medications Pantoprazole Sodium (Protonix Vial) 40 mg DAILYAC IVP Last administered on 08:32; Start 10/26/16 at 17:00; Stop 10/30/16 at 11:57; Status DC Dobutamine HCl/ Dextrose 250 ml @ 0 mls/hr CONT PRN IV SEE I/O RECORD Last administered on 10/29/16 03:02; Start 10/26/16 at 17:00; Stop 10/30/16 at 10:57 ; Status DC Furosemide (Lasix) 60 mg 1X ONCE IVP Last administered on 10/27/16 08:15; Start 10/27/16 at 08:30; Stop 10/27/16 at 08:31; Status DC Sodium Bicarbonate 50 meq Q2HR IV Last administered on 10/27/16 12:38; Start 10/27/16 at 10:00; Stop 10/27/16 at 12:01; Status DC Albuterol/ Ipratropium (Duoneb) 3 ml RTQID NEB Last administered on 11/03/16 15 :23; Start 10/27/16 at 12:00 Heparin Sodium (Porcine) (Heparin Sodium) 10,000 unit STK-MED ONCE .ROUTE ; Start 10/27/16 at 10:01; Stop 10/27/16 at 10:02; Status DC Lidocaine/Sodium Bicarbonate (Buffered Lidocaine 1%) 20 ml STK-MED ONCE IJ ; Start 10/27/16 at 10:01; Stop 10/27/16 at 10:02; Status DC Heparin Sodium/ Sodium Chloride 500 ml @ As Directed STK-MED ONCE .ROUTE ; Start 10/27/16 at 10:01; Stop 10/27/16 at 10:02; Status DC Lidocaine/Sodium Bicarbonate (Buffered Lidocaine 1%) 3 ml 1X ONCE IJ Last administered on 10/27/16 12:16; Start 10/27/16 at 10:15; Stop 10/27/16 at 10:16 ; Status DC Heparin Sodium/ Sodium Chloride 60 unit 1X ONCE IV Last administered on 12:14; Start 10/27/16 at 10:15; Stop 10/27/16 at 10:16; Status DC Heparin Sodium (Porcine) (Heparin Sodium) 2,500 unit 1X ONCE INT CAT Last administered on 10/27/16 12:16; Start 10/27/16 at 10:15; Stop 10/27/16 at 10:16 ; Status DC Aspirin (Krystian Aspirin) 325 mg DAILY PO Last administered on 11/03/16 08:50; Start 10/27/16 at 12:00 Vitamin D (Vitamin D3) 1,000 unit DAILY PO Last administered on 11/03/16 08:51 ; Start 10/27/16 at 12:00 Diltiazem HCl (Cardizem Cd) 300 mg DAILY PO Last administered on 11/03/16 08:50 ; Start 10/27/16 at 12:00 Furosemide (Lasix) 40 mg [id number] PO Last administered on 10/28/16 17:13; Start 10/27/16 at 12:00; Stop 10/29/16 at 07:12; Status DC Insulin Aspart (Novolog) 11 units TIDWMEALS SQ Last administered on 11/03/16 12 :47; Start 10/27/16 at 12:00 Levothyroxine Sodium (Synthroid) 125 mcg DAILY07 PO Last administered on 06:57; Start 10/27/16 at 12:00 Lisinopril (Prinivil) 40 mg DAILY PO Last administered on 11/03/16 08:50; Start 10/27/16 at 12:00 Methocarbamol (Robaxin) 500 mg PRN TID PRN PO MUSCLE SPASMS Last administered on 11/02/16 00:33; Start 10/27/16 at 11:15 Tamsulosin HCl (Flomax) 0.4 mg QHS PO Last administered on 11/02/16 20:26; Start 10/27/16 at 21:00 Albuterol Sulfate (Ventolin Neb Soln) 2.5 mg PRN Q4HRS PRN NEB SHORTNESS OF BREATH Last administered on 10/30/16 01:38; Start 10/27/16 at 11:30 Brimonidine Tartrate (Alphagan) 1 drop BID OU Last administered on 11/03/16 08: 49; Start 10/27/16 at 12:00 Artificial Tears (Artificial Tears) 1 drop PRN Q15MIN PRN OU DRY EYE; Start at 11:30 Ferrous Sulfate (Feosol) 325 mg BIDWMEALS PO Last administered on 11/03/16 08: 51; Start 10/27/16 at 12:00 Gabapentin (Neurontin) 300 mg BID PO Last administered on 11/03/16 08:50; Start 10/27/16 at 12:00 Non-Formulary Medication 1 inh QID IH ; Start 10/27/16 at 13:00; Status UNV Non-Formulary Medication 1 each TID TP ; Start 10/27/16 at 14:00; Status UNV Non-Formulary Medication 1 tab BID PO ; Start 10/27/16 at 21:00; Status UNV Potassium Chloride (Klor-Con) 10 meq [id number] PO Last administered on 08:51; Start 10/28/16 at 08:00 Atorvastatin Calcium (Lipitor) 20 mg QHS PO Last administered on 11/02/16 20:26 ; Start 10/27/16 at 21:00 Linagliptin (Tradjenta) 5 mg DAILY PO Last administered on 11/03/16 08:51; Start 10/27/16 at 12:00 Furosemide (Lasix) 60 mg 1X ONCE IVP ; Start 10/28/16 at 08:00; Stop 10/28/16 at 08:01; Status DC Sodium Bicarbonate 50 meq Q2HR IV Last administered on 10/29/16 10:14; Start 10/29/16 at 08:00; Stop 10/29/16 at 10:01; Status DC Sodium Bicarbonate 150 meq/Sterile Water 1,150 ml @ 80 mls/hr [id number] PRN IV . Last administered on 10/29/16 16:41; Start 10/29/16 at 07:45; Stop 10/30/16 at 12:28; Status DC Sodium Chloride 500 ml @ 30 mls/hr CONT PRN PRN IV see comments; Start at 07:45; Stop 10/30/16 at 12:28; Status DC Acetaminophen (Tylenol) 650 mg PRN Q6HRS PRN PO PAIN Last administered on 16:52; Start 10/29/16 at 11:15 Nystatin (Nystop) 1 summer TID PRN PRN TP REDNESS; Start 10/29/16 at 11:15 Multi-Ingredient Ointment (Analgesic [place]) 1 summer PRN QID PRN TP MUSCLE PAIN Last administered on 10/30/16 16:52; Start 10/29/16 at 11:15 Magnesium Sulfate/ Dextrose 50 ml @ 25 mls/hr PRN DAILY PRN IV for Mag < 1.7 on am labs; Start 10/30/16 at 09:45 Dobutamine HCl/ Dextrose 250 ml @ 0 mls/hr CONT PRN IV SEE I/O RECORD Last administered on 11/01/16 18:04; Start 10/30/16 at 11:00; Stop 11/03/16 at 11:16; Status DC Pantoprazole Sodium (Protonix) 40 mg DAILYAC PO Last administered on 11/03/16 08:51; Start 10/31/16 at 07:30 Iron Sucrose 200 mg/Sodium Chloride 110 ml @ 55 mls/hr 3X/WEEK IV Last administered on 11/03/16 08:54; Start 11/01/16 at 09:00; Stop 11/10/16 at 10:59 Sodium Chloride 500 ml @ 30 mls/hr CONT PRN PRN IV see comments Last administered on 11/01/16 03:29; Start 10/31/16 at 09:00 Acetaminophen/ Hydrocodone Bitart (Lortab 5/325) 1 tab PRN Q4HRS PRN PO PAIN Last administered on 11/02/16 20:27; Start 10/31/16 at 20:30 Furosemide (Lasix) 20 mg 1X ONCE IVP ; Start 11/01/16 at 15:45; Stop 11/01/16 at 16:05; Status DC Furosemide (Lasix) 20 mg 1X ONCE IVP Last administered on 11/01/16 21:15; Start 11/01/16 at 21:15; Stop 11/01/16 at 21:16; Status DC Magnesium Sulfate/ Dextrose 100 ml @ 100 mls/hr 1X ONCE IV Last administered on 11/02/16 09:45; Start 11/02/16 at 09:45; Stop 11/02/16 at 10:44; Status DC Sodium Acetate 75 meq/Sodium Chloride 1,037.5 ml @ 75 mls/hr [id number] IV Last administered on 11/03/16 01:24; Start 11/02/16 at 10:00 Acetylcysteine (Mucomyst 20% Oral Solution) 1,200 mg BID PO Last administered on 11/03/16 08:52; Start 11/02/16 at 09:45; Stop 11/04/16 at 09:44 Heparin Sodium/ Sodium Chloride 500 ml @ As Directed STK-MED ONCE .ROUTE ; Start 11/02/16 at 12:13; Stop 11/02/16 at 12:14; Status DC Lidocaine HCl 20 ml STK-MED ONCE .ROUTE ; Start 11/02/16 at 12:13; Stop 11/02/16 at 12:14; Status DC Iodixanol (Visipaque 320) 100 ml STK-MED ONCE .ROUTE ; Start 11/02/16 at 12:13; Stop 11/02/16 at 12:14; Status DC Midazolam HCl (Versed) 2 mg STK-MED ONCE .ROUTE ; Start 11/02/16 at 13:10; Stop 11/02/16 at 13:11; Status DC Fentanyl Citrate (Fentanyl 2ml Vial) 100 mcg STK-MED ONCE .ROUTE ; Start at 13:10; Stop 11/02/16 at 13:11; Status DC Lidocaine HCl 20 ml 1X ONCE IJ Last administered on 11/02/16 13:51; Start 11/02 at 13:30; Stop 11/02/16 at 13:32; Status DC Heparin Sodium/ Sodium Chloride 1,000 unit 1X ONCE IV Last administered on 11/02 13:51; Start 11/02/16 at 13:30; Stop 11/02/16 at 13:32; Status DC Fentanyl Citrate (Fentanyl 2ml Vial) 25 mcg 1X ONCE IV Last administered on 13:52; Start 11/02/16 at 13:30; Stop 11/02/16 at 13:32; Status DC Midazolam HCl (Versed) 1 mg 1X ONCE IV Last administered on 11/02/16 13:52; Start 11/02/16 at 13:30; Stop 11/02/16 at 13:32; Status DC Iodixanol (Visipaque 320) 100 ml 1X ONCE IART Last administered on 11/02/16 13 :52; Start 11/02/16 at 13:30; Stop 11/02/16 at 13:32; Status DC Info (Do NOT chart on this entry -- for MONITORING) 1 each PRN DAILY PRN MC SEE COMMENTS; Start 11/02/16 at 13:45; Stop 11/04/16 at 13:44 Iodixanol (Visipaque 320) 100 ml STK-MED ONCE .ROUTE ; Start 11/02/16 at 13:35; Stop 11/02/16 at 13:36; Status DC Magnesium Sulfate/ Dextrose 50 ml @ 25 mls/hr 1X ONCE IV Last administered on 11/03/16 11:12; Start 11/03/16 at 11:00; Stop 11/03/16 at 12:59; Status DC Sodium Chloride 500 ml @ 500 mls/hr 1X ONCE IV ; Start 11/03/16 at 10:45; Stop 11/03/16 at 11:44; Status DC Albumin Human 500 ml @ 125 mls/hr 1X ONCE IV Last administered on 11/03/16 12 :23; Start 11/03/16 at 11:15; Stop 11/03/16 at 15:14; Status DC Active Scripts Active Reported Tamsulosin Hcl 0.4 Mg Cap.er.24h 0.4 Mg PO QHS Onglyza (Saxagliptin Hcl) 5 Mg Tablet 1 Tab PO DAILY Crestor (Rosuvastatin Calcium) 10 Mg Tablet 0.5 Tab PO DAILY Potassium Chloride 20 Meq Tablet.er 10 Meq PO DAILY Omeprazole 20 Mg Tablet.dr 1 Tab PO BID Nitrostat (Nitroglycerin) 0.3 Mg Tab.subl 0.3 Mg SL PRN Q5MIN PRN Methocarbamol 500 Mg Tablet 500 Mg PO PRN TID PRN [place] Ultra Strength (Menthol) 1 Each Adh..patch 1 Each TP TID Lisinopril 40 Mg Tablet 1 Tab PO DAILY Levothyroxine Sodium 125 Mcg Tablet 1 Tab PO DAILY Novolog Flexpen (Insulin Aspart) 100 Unit/1 Ml Insuln.pen 11 Unit SQ TIDWMEALS Gabapentin 300 Mg Capsule 300 Mg PO TID Furosemide 40 Mg Tablet 40 Mg PO BID Ferrous Sulfate 324 Mg Tablet.dr 324 Mg PO BID Cardizem Cd (Diltiazem Hcl) 300 Mg Cap.er.24h 300 Mg PO DAILY Vitamin D3 (Cholecalciferol (Vitamin D3)) 1,000 Unit Tablet 1 Tab PO DAILY Refresh Optive Advanced Drops (Carboxymethyl/Glycerin/Poly80) 10 Ml Drops 1 Drop OP PRN QID PRN Alphagan P (Brimonidine Tartrate) 5 Ml Drops 1 Drop EACHEYE BID Aspirin 325 Mg Tablet 1 Tab PO DAILY Albuterol Sulfate Conc Neb Soln (Albuterol Sulfate) 2.5 Mg/0.5 Ml Vial.neb 1 Vial NEB Q4HRS Combivent Respimat Inhal (Ipratropium/Albuterol Sulfate) 4 Gm Aer.w.adap 1 Inh IH QID Vitals/I & O Vital Sign - Last 24 Hours 11/02/16 11/02/16 11/02/16 11/02/16 15:51 16:00 16:00 17:00 Temp 98.4 98.4 Pulse 75 71 Resp 21 20 B/P (MAP) 118/64 (82) 127/64 (85) Pulse Ox 94 95 97 O2 Delivery Nasal Cannula Nasal Cannula Bi-pap Nasal Cannula O2 Flow Rate 7.0 5.0 5.0 11/02/16 11/02/16 11/02/16 11/02/16 18:00 19:00 20:00 20:00 Temp 99.8 99.8 Pulse 76 76 74 Resp 20 36 38 B/P (MAP) 126/67 (86) 125/52 (76) 140/64 (89) Pulse Ox 98 97 95 O2 Delivery Nasal Cannula Nasal Cannula Nasal Cannula Nasal Cannula O2 Flow Rate 5.0 5.0 5.0 5.0 11/02/16 11/02/16 11/02/16 11/02/16 20:14 20:27 21:00 21:27 Pulse 76 Resp 24 40 32 B/P (MAP) 128/64 (85) Pulse Ox 95 98 97 95 O2 Delivery Nasal Cannula Nasal Cannula Nasal Cannula Nasal Cannula O2 Flow Rate 7.0 5.0 5.0 5.0 11/02/16 11/02/16 11/03/16 11/03/16 22:00 23:00 00:00 00:00 Temp 99.5 99.5 Pulse 76 76 76 Resp 30 33 22 B/P (MAP) 113/57 (75) 96/47 (63) 100/53 (69) Pulse Ox 95 97 95 O2 Delivery Nasal Cannula Nasal Cannula BiPAP/CPAP Bi-pap O2 Flow Rate 5.0 5.0 11/03/16 11/03/16/11/1511/03/16 01:00 02:00 03:00 03:30 Pulse 75 76 75 Resp 25 26 22 B/P (MAP) 119/62 (81) 110/72 (85) 119/68 (85) Pulse Ox 99 100 98 100 O2 Delivery BiPAP/CPAP BiPAP/CPAP BiPAP/CPAP BiPAP/CPAP 11/03/16 11/03/16 11/03/16 11/03/16 04:00 04:00 05:00 05:42 Pulse 74 66 Resp 35 38 B/P (MAP) 123/65 (84) 127/63 (84) Pulse Ox 98 100 100 O2 Delivery Bi-pap Nasal Cannula Nasal Cannula BiPAP/CPAP O2 Flow Rate 5.0 5.0 11/03/16 11/03/16 11/03/16 11/03/16 06:00 07:00 07:40 08:00 Temp 99.2 100.6 99.2 100.6 Pulse 76 72 71 Resp 30 30 22 B/P (MAP) 138/62 (87) 143/60 (87) 120/64 (82) Pulse Ox 100 100 100 92 O2 Delivery BiPAP/CPAP BiPAP/CPAP BiPAP/CPAP BiPAP/CPAP 11/03/16 11/03/16 11/03/16 11/03/16 08:00 08:50 08:50 09:00 Pulse 71 71 71 Resp 26 B/P (MAP) 120/65 120/65 119/53 (75) Pulse Ox 95 O2 Delivery Bi-pap Nasal Cannula O2 Flow Rate 5.0 11/03/16 11/03/16/11/1511/03/16 10:00 11:00 11:49 12:00 Pulse 71 71 Resp 24 25 B/P (MAP) 74/50 (58) 80/49 (59) Pulse Ox 95 97 95 O2 Delivery Nasal Cannula Nasal Cannula Nasal Cannula Nasal Cannula O2 Flow Rate 5.0 5.0 4.0 4.0 11/03/16 11/03/16 12:00 15:24 Temp 98.5 98.5 Pulse 71 Resp 21 B/P (MAP) 85/54 (64) Pulse Ox 94 96 O2 Delivery Nasal Cannula Nasal Cannula O2 Flow Rate 4.0 4.0 Intake and Output 11/02/16 11/02/16 11/03/16 15:00 23:00 07:00 Intake Total 100 ml 1145.62 ml 1120 ml Output Total 455 ml 855 ml 610 ml Balance -355 ml 290.62 ml 510 ml RADU BAUTISTA MD November 03, 2016 15:28
[2016-11-03] MEDS: HYDROcodone/APAP 5/325MG 1 TAB TABLET PO PRN (19:09)
[2016-11-03] MEDS: ATORVASTATIN CALCIUM 20 MG TABLET PO SCH (20:27)
[2016-11-03] MEDS: TAMSULOSIN 0.4 MG CAP.ER.24H. PO SCH (20:27)
[2016-11-03] MEDS: METHOCARBAMOL 500 MG TABLET PO PRN (20:50)
[2016-11-04] VITALS (7 sets, daily range): BP systolic 84–146; BP diastolic 41–59
[2016-11-04] MEDS: SODIUM ACETATE IV SCH ×2 (03:30→17:20)
[2016-11-04] MEDS: 1/2 NORMAL SALINE IV SCH ×2 (03:30→17:20)
[2016-11-04 06:12] LABS: ALBUMIN 2.5 g/dL (3.4-5.0); CALCIUM 7.9 mg/dL (8.5-10.1); GFR 73.5; PHOSPHORUS 3.5 mg/dL (2.6-4.7); POTASSIUM 4.5 mmol/L (3.5-5.1)
[2016-11-04] MEDS: LINAGLIPTIN 5 MG TABLET PO SCH (07:29)
[2016-11-04] MEDS: ASPIRIN 325 MG TABLET PO SCH (07:29)
[2016-11-04] MEDS: CHOLECALCIFEROL (VITAMIN D3) 1,000 UNIT TABLET PO SCH (07:29)
[2016-11-04] MEDS: GABAPENTIN 300 MG CAPSULE. PO SCH ×2 (07:29→21:15)
[2016-11-04] MEDS: POTASSIUM CHLORIDE 10 MEQ TABLET.ER. PO SCH (07:30)
[2016-11-04] MEDS: PANTOPRAZOLE 40 MG TABLET.DR. PO SCH (07:30)
[2016-11-04] MEDS: FERROUS SULFATE 325 MG TABLET. PO SCH ×2 (07:30→17:19)
[2016-11-04] MEDS: LEVOTHYROXINE 125 MCG TABLET PO SCH (07:30)
[2016-11-04] MEDS: BRIMONIDINE 0.2% OPHTH SOLUTION 5ML BOTTLE. OU SCH ×2 (07:30→21:13)
[2016-11-04] MEDS: HYDROcodone/APAP 5/325MG 1 TAB TABLET PO PRN ×3 (08:40→21:17)
[2016-11-04] MEDS: LISINOPRIL 40 MG TABLET. PO SCH (08:40)
[2016-11-04] MEDS: IPRATRPIUM/ALBUTEROL 0.5/2.5MG 3 ML NEBU. NEB SCH ×4 (08:41→19:45)
[2016-11-04] MEDS: INSULIN ASPART 300 UNITS/3 ML INSULN.PEN SQ SCH ×3 (08:43→17:20)
--- NOTE | 2016-11-04 09:04 | PDOC ---
PULMONARY PROGRESS NOTES Subjective used bipap last night. on o2 now no pain, sob,better. has cough, chest tightness Vitals Vital Signs Date Time Temp Pulse Resp B/P (MAP) Pulse Ox O2 Delivery O2 Flow Rate FiO2 11/04/16 08:42 95 Nasal Cannula 4.0 11/04/16 08:41 63 137/59 11/04/16 08:00 98.7 20 98.7 ROS: No Nausea, No Chest Pain, No Abdominal Pain, No Increase Cough General: Alert, No acute distress HEENT: Other (nc at perrl nose throat clear) Lungs: Crackles, Other (few rhonchi) Cardiovascular: S1, S2 Abdomen: Soft, Non-tender, Other (no mass) Neuro Exam: Alert Extremities: Other (1+edema) Skin: Warm Labs Laboratory Tests Test 11/02/16 17:27 11/02/16 21:16 11/03/16 06:30 11/03/16 08:06 Glucose (Fingerstick) 166 mg/dL (70-99) 177 mg/dL (70-99) 120 mg/dL (70-99) White Blood Count 9.7 x10^3/uL (4.0-11.0) Red Blood Count 3.84 x10^6/uL (4.30-5.70) Hemoglobin 9.9 g/dL (13.0-17.5) Hematocrit 30.9 % (39.0-53.0) Mean Corpuscular Volume 81 fL (79-100) Mean Corpuscular Hemoglobin 26 pg (25-35) Mean Corpuscular Hemoglobin Concent 32 g/dL (31-37) Red Cell Distribution Width 19.2 % (11.5-14.5) Platelet Count 259 x10^3/uL (140-400) Sodium Level 128 mmol/L (136-145) Potassium Level 4.4 mmol/L (3.5-5.1) Chloride Level 95 mmol/L (98-107) Carbon Dioxide Level 27 mmol/L (21-32) Anion Gap 6 (6-14) Blood Urea Nitrogen 17 mg/dL (8-26) Creatinine 0.9 mg/dL (0.7-1.3) Estimated GFR (Cockcroft-Gault) 82.9 Glucose Level 127 mg/dL (70-99) Calcium Level 7.9 mg/dL (8.5-10.1) Phosphorus Level 2.7 mg/dL (2.6-4.7) Magnesium Level 1.6 mg/dL (1.8-2.4) Albumin 2.4 g/dL (3.4-5.0) Test 11/03/16 12:25 11/03/16 12:42 11/03/16 17:22 11/03/16 21:06 Glucose (Fingerstick) 112 mg/dL (70-99) 139 mg/dL (70-99) 141 mg/dL (70-99) Urine Collection Type U cath Urine Color Dk yellow Urine Clarity Clear Urine pH 8.0 Urine Specific [place] 1.025 Urine Protein 30 mg/dL (NEG-TRACE) Urine Glucose (UA) Negative mg/dL (NEG) Urine Ketones (Stick) Negative mg/dL (NEG) Urine Blood Moderate (NEG) Urine Nitrite Negative (NEG) Urine Bilirubin Negative (NEG) Urine Urobilinogen Dipstick 4.0 mg/dL (0.2 mg/dL) Urine Leukocyte Esterase Negative (NEG) Urine RBC 11-20 /HPF (0-2) Urine WBC Rare /HPF (0-4) Urine Squamous Epithelial Cells None /LPF Urine Bacteria Few /HPF (0-FEW) Urine Mucus Slight /LPF Urine Random Sodium 126 mmol/L (Not Estab.) Test 11/04/16 05:00 11/04/16 08:35 Sodium Level 130 mmol/L (136-145) Potassium Level 4.5 mmol/L (3.5-5.1) Chloride Level 97 mmol/L (98-107) Carbon Dioxide Level 26 mmol/L (21-32) Anion Gap 7 (6-14) Blood Urea Nitrogen 20 mg/dL (8-26) Creatinine 1.0 mg/dL (0.7-1.3) Estimated GFR (Cockcroft-Gault) 73.5 Glucose Level 114 mg/dL (70-99) Calcium Level 7.9 mg/dL (8.5-10.1) Phosphorus Level 3.5 mg/dL (2.6-4.7) Magnesium Level 1.9 mg/dL (1.8-2.4) Albumin 2.5 g/dL (3.4-5.0) Glucose (Fingerstick) 150 mg/dL (70-99) Laboratory Tests Test 11/03/16 12:25 11/03/16 12:42 11/03/16 17:22 11/03/16 21:06 Glucose (Fingerstick) 112 mg/dL (70-99) 139 mg/dL (70-99) 141 mg/dL (70-99) Urine Collection Type U cath Urine Color Dk yellow Urine Clarity Clear Urine pH 8.0 Urine Specific [place] 1.025 Urine Protein 30 mg/dL (NEG-TRACE) Urine Glucose (UA) Negative mg/dL (NEG) Urine Ketones (Stick) Negative mg/dL (NEG) Urine Blood Moderate (NEG) Urine Nitrite Negative (NEG) Urine Bilirubin Negative (NEG) Urine Urobilinogen Dipstick 4.0 mg/dL (0.2 mg/dL) Urine Leukocyte Esterase Negative (NEG) Urine RBC 11-20 /HPF (0-2) Urine WBC Rare /HPF (0-4) Urine Squamous Epithelial Cells None /LPF Urine Bacteria Few /HPF (0-FEW) Urine Mucus Slight /LPF Urine Random Sodium 126 mmol/L (Not Estab.) Test 11/04/16 05:00 11/04/16 08:35 Sodium Level 130 mmol/L (136-145) Potassium Level 4.5 mmol/L (3.5-5.1) Chloride Level 97 mmol/L (98-107) Carbon Dioxide Level 26 mmol/L (21-32) Anion Gap 7 (6-14) Blood Urea Nitrogen 20 mg/dL (8-26) Creatinine 1.0 mg/dL (0.7-1.3) Estimated GFR (Cockcroft-Gault) 73.5 Glucose Level 114 mg/dL (70-99) Calcium Level 7.9 mg/dL (8.5-10.1) Phosphorus Level 3.5 mg/dL (2.6-4.7) Magnesium Level 1.9 mg/dL (1.8-2.4) Albumin 2.5 g/dL (3.4-5.0) Glucose (Fingerstick) 150 mg/dL (70-99) Medications Active Scripts Medications Dose Route/Sig Days Date Category Tamsulosin Hcl 0.4 Mg Cap.er.24h 0.4 Mg PO QHS 10/27/16 Reported Onglyza (Saxagliptin Hcl) 5 Mg Tablet 1 Tab PO DAILY 10/27/16 Reported Crestor (Rosuvastatin Calcium) 10 Mg Tablet 0.5 Tab PO DAILY 10/27/16 Reported Potassium Chloride 20 Meq Tablet.er 10 Meq PO DAILY 10/27/16 Reported Omeprazole 20 Mg Tablet.dr 1 Tab PO BID 10/27/16 Reported Nitrostat (Nitroglycerin) 0.3 Mg Tab.subl 0.3 Mg SL PRN Q5MIN PRN 10/27/16 Reported Methocarbamol 500 Mg Tablet 500 Mg PO PRN TID PRN 10/27/16 Reported [place] Ultra Strength (Menthol) 1 Each Adh..patch 1 Each TP TID 10/27/16 Reported Lisinopril 40 Mg Tablet 1 Tab PO DAILY 10/27/16 Reported Levothyroxine Sodium 125 Mcg Tablet 1 Tab PO DAILY 10/27/16 Reported Novolog Flexpen (Insulin Aspart) 100 Unit/1 Ml Insuln.pen 11 Unit SQ TIDWMEALS 10/27/16 Reported Gabapentin 300 Mg Capsule 300 Mg PO TID 10/27/16 Reported Furosemide 40 Mg Tablet 40 Mg PO BID 10/27/16 Reported Ferrous Sulfate 324 Mg Tablet.dr 324 Mg PO BID 10/27/16 Reported Cardizem Cd (Diltiazem Hcl) 300 Mg Cap.er.24h 300 Mg PO DAILY 10/27/16 Reported Vitamin D3 (Cholecalciferol (Vitamin D3)) 1,000 Unit Tablet 1 Tab PO DAILY 10/27/16 Reported Refresh Optive Advanced Drops (Carboxymethyl/Glycerin/Poly80) 10 Ml Drops 1 Drop OP PRN QID PRN 10/27/16 Reported Alphagan P (Brimonidine Tartrate) 5 Ml Drops 1 Drop EACHEYE BID 10/27/16 Reported Aspirin 325 Mg Tablet 1 Tab PO DAILY 10/27/16 Reported Albuterol Sulfate Conc Neb Soln (Albuterol Sulfate) 2.5 Mg/0.5 Ml Vial.neb 1 Vial NEB Q4HRS 10/27/16 Reported Combivent Respimat Inhal (Ipratropium/Albuterol Sulfate) 4 Gm Aer.w.adap 1 Inh IH QID 10/27/16 Reported Comments cxr reviewed, l small effusion, atelectasis Impression . 1. Acute hypoxemic respiratory failure/AECOPD/ Acute on chronic systolic/ Diastolic HF 2. Acute on chronic kidney failure. 3. Chronic heart failure, Acute on chronic systolic/ diastolic heart failure. 4. Cardiomyopathy. (EF 25 ) 5. Status post pacemaker. 6. Coronary artery disease, status post coronary artery bypass grafting. 7. Hypertension. 8. Obstructive sleep apnea. 9. Acute on chronic blood-loss anemia. Plan . 1. BiPAP prn during day, cont at night 2. Venous Dopplers of the lower extremities, neg 3. Follow cardiology input/ cath severe cad, cm, pulm htn, dobutamine per cardiology 4. No need for antibiotics. 5. Monitor hemoglobin and hematocrit. 6. monitor k d/w RN/RT, pt SAIRA GUPTA MD November 04, 2016 09:04
[2016-11-04] MEDS: ACETYLCYSTEINE 20% ORAL SOLN 600 MG/3 ML SYRINGE. PO SCH (09:21)
--- NOTE | 2016-11-04 09:39 | PDOC ---
SUBJECTIVE ROS BELINDA/ ? CKD IIi Doing much better today feels like he can breathe again. Lying flat in bed OBJECTIVE Vital Signs Vital Signs Date Time Temp Pulse Resp B/P (MAP) Pulse Ox O2 Delivery O2 Flow Rate FiO2 11/04/16 08:42 95 Nasal Cannula 4.0 11/04/16 08:41 63 137/59 11/04/16 08:00 98.7 20 98.7 I & 0 Intake and Output 11/04/16 07:00 Intake Total 1680 ml Output Total 855 ml Balance 825 ml Intake Oral 712 ml IV Total 968 ml Output Urine Total 855 ml PHYSICAL EXAM Physical Exam General Appearance: Awake: Alert Oriented x 3 Neck: No JVD or JVP Chest: CTA [place] x coarse Upper resp sounds Heart: S1 S2 Abdomen - Soft NTND Extremities - No Edema DIAGNOSIS/ASSESSMENT Assessment & Plan ? BELINDA due to Vol dpeltion - now much improved despite contd use of JORDAN-i (off of Diuretics) CmyoPahty with ^ed BNP - optimize Med Mx per Dr Reyes Low Na - better after PO intake has improved Anemia: IV Iron as ordered HyperUricemia - improved with vol repletion; hypoAlbuminemia - min Proteinuria - suspect due to Poor PO intake. PO intake is improving now Discussed Plan of Care and prognosis etc. at length with pt Will sign off - pl call with Qs Problems: COMMENT/RELEVANT DATA Meds Current Medications Medications (Trade) Dose Ordered Sig/Jcarlos Start Time Stop Time Status Last Admin Dose Admin Acetaminophen (Tylenol) 650 mg PRN Q6HRS PRN 10/29/16 11:15 10/30/16 16:52 650 MG Acetaminophen/ Hydrocodone Bitart (Lortab 5/325) 1 tab PRN Q4HRS PRN 10/31/16 20:30 11/04/16 08:40 1 TAB Acetylcysteine (Mucomyst 20% Oral Solution) 1,200 mg BID 11/02/16 09:45 11/04/16 09:44 11/04/16 09:21 1,200 MG Albumin Human 500 ml @ 125 mls/hr 1X ONCE 11/03/16 11:15 11/03/16 15:14 DC 11/03/16 12:23 125 MLS/HR Albuterol Sulfate (Ventolin Neb Soln) 2.5 mg PRN Q4HRS PRN 10/27/16 11:30 10/30/16 01:38 2.5 MG Albuterol/ Ipratropium (Duoneb) 3 ml RTQID 10/27/16 12:00 11/04/16 08:41 3 ML Artificial Tears (Artificial Tears) 1 drop PRN Q15MIN PRN 10/27/16 11:30 Aspirin (Krystian Aspirin) 325 mg DAILY 10/27/16 12:00 11/04/16 07:29 325 MG Atorvastatin Calcium (Lipitor) 20 mg QHS 10/27/16 21:00 11/03/16 20:27 20 MG Brimonidine Tartrate (Alphagan) 1 drop BID 10/27/16 12:00 11/04/16 07:30 1 DROP Diltiazem HCl (Cardizem Cd) 300 mg DAILY 10/27/16 12:00 11/04/16 08:41 300 MG Dobutamine HCl/ Dextrose 250 ml @ 0 mls/hr CONT PRN 10/30/16 11:00 11/03/16 11:16 DC 11/01/16 18:04 2.3 MLS/HR Fentanyl Citrate (Fentanyl 2ml Vial) 25 mcg 1X ONCE 11/02/16 13:30 11/02/16 13:32 DC 11/02/16 13:52 25 MCG Ferrous Sulfate (Feosol) 325 mg BIDWMEALS 10/27/16 12:00 11/04/16 07:30 325 MG Furosemide (Lasix) 20 mg 1X ONCE 11/01/16 21:15 11/01/16 21:16 DC 11/01/16 21:15 20 MG Gabapentin (Neurontin) 300 mg BID 10/27/16 12:00 11/04/16 07:29 300 MG Heparin Sodium (Porcine) (Heparin Sodium) 2,500 unit 1X ONCE 10/27/16 10:15 10/27/16 10:16 DC 10/27/16 12:16 2,800 UNIT Heparin Sodium/ Sodium Chloride 1,000 unit 1X ONCE 11/02/16 13:30 11/02/16 13:32 DC 11/02/16 13:51 1,000 UNIT Info (Do NOT chart on this entry -- for MONITORING) 1 each PRN DAILY PRN 11/02/16 13:45 11/04/16 13:44 Insulin Aspart (Novolog) 11 units TIDWMEALS 10/27/16 12:00 11/04/16 08:43 11 UNITS Iodixanol (Visipaque 320) 100 ml STK-MED ONCE 11/02/16 13:35 11/02/16 13:36 DC Iron Sucrose 200 mg/Sodium Chloride 110 ml @ 55 mls/hr 3X/WEEK 11/01/16 09:00 11/10/16 10:59 11/03/16 08:54 55 MLS/HR Levothyroxine Sodium (Synthroid) 125 mcg DAILY07 10/27/16 12:00 11/04/16 07:30 125 MCG Lidocaine HCl 20 ml 1X ONCE 11/02/16 13:30 11/02/16 13:32 DC 11/02/16 13:51 20 ML Lidocaine/Sodium Bicarbonate (Buffered Lidocaine 1%) 3 ml 1X ONCE 10/27/16 10:15 10/27/16 10:16 DC 10/27/16 12:16 3 ML Linagliptin (Tradjenta) 5 mg DAILY 10/27/16 12:00 11/04/16 07:29 5 MG Lisinopril (Prinivil) 40 mg DAILY 10/27/16 12:00 11/04/16 08:40 40 MG Magnesium Sulfate/ Dextrose 50 ml @ 25 mls/hr 1X ONCE 11/03/16 11:00 11/03/16 12:59 DC 11/03/16 11:12 25 MLS/HR Methocarbamol (Robaxin) 500 mg PRN TID PRN 10/27/16 11:15 11/03/16 20:50 500 MG Midazolam HCl (Versed) 1 mg 1X ONCE 11/02/16 13:30 11/02/16 13:32 DC 11/02/16 13:52 1 MG Multi-Ingredient Ointment (Analgesic [place]) 1 summer PRN QID PRN 10/29/16 11:15 10/30/16 16:52 1 SUMMER Non-Formulary Medication 1 tab BID 10/27/16 21:00 UNV Nystatin (Nystop) 1 summer TID PRN PRN 10/29/16 11:15 Pantoprazole Sodium (Protonix Vial) 40 mg DAILYAC 10/26/16 17:00 10/30/16 11:57 DC 10/30/16 08:32 40 MG Pantoprazole Sodium (Protonix) 40 mg DAILYAC 10/31/16 07:30 11/04/16 07:30 40 MG Potassium Chloride (Klor-Con) 10 meq [id number] 10/28/16 08:00 11/04/16 07:30 10 MEQ Sodium Bicarbonate 150 meq/Sterile Water 1,150 ml @ 80 mls/hr [id number] PRN 10/29/16 07:45 10/30/16 12:28 DC 10/29/16 16:41 80 MLS/HR Sodium Acetate 75 meq/Sodium Chloride 1,037.5 ml @ 75 mls/hr [id number] 11/02/16 10:00 11/03/16 01:24 75 MLS/HR Sodium Bicarbonate 50 meq Q2HR 10/29/16 08:00 10/29/16 10:01 DC 10/29/16 10:14 50 MEQ Sodium Chloride 500 ml @ 500 mls/hr 1X ONCE 11/03/16 10:45 11/03/16 11:44 DC Tamsulosin HCl (Flomax) 0.4 mg QHS 10/27/16 21:00 11/03/16 20:27 0.4 MG Vitamin D (Vitamin D3) 1,000 unit DAILY 10/27/16 12:00 11/04/16 07:29 1,000 UNIT Lab Laboratory Tests Test 11/03/16 12:25 11/03/16 12:42 11/03/16 17:22 11/03/16 21:06 Glucose (Fingerstick) 112 mg/dL (70-99) 139 mg/dL (70-99) 141 mg/dL (70-99) Urine Collection Type U cath Urine Color Dk yellow Urine Clarity Clear Urine pH 8.0 Urine Specific [place] 1.025 Urine Protein 30 mg/dL (NEG-TRACE) Urine Glucose (UA) Negative mg/dL (NEG) Urine Ketones (Stick) Negative mg/dL (NEG) Urine Blood Moderate (NEG) Urine Nitrite Negative (NEG) Urine Bilirubin Negative (NEG) Urine Urobilinogen Dipstick 4.0 mg/dL (0.2 mg/dL) Urine Leukocyte Esterase Negative (NEG) Urine RBC 11-20 /HPF (0-2) Urine WBC Rare /HPF (0-4) Urine Squamous Epithelial Cells None /LPF Urine Bacteria Few /HPF (0-FEW) Urine Mucus Slight /LPF Urine Random Sodium 126 mmol/L (Not Estab.) Test 11/04/16 05:00 11/04/16 08:35 Sodium Level 130 mmol/L (136-145) Potassium Level 4.5 mmol/L (3.5-5.1) Chloride Level 97 mmol/L (98-107) Carbon Dioxide Level 26 mmol/L (21-32) Anion Gap 7 (6-14) Blood Urea Nitrogen 20 mg/dL (8-26) Creatinine 1.0 mg/dL (0.7-1.3) Estimated GFR (Cockcroft-Gault) 73.5 Glucose Level 114 mg/dL (70-99) Calcium Level 7.9 mg/dL (8.5-10.1) Phosphorus Level 3.5 mg/dL (2.6-4.7) Magnesium Level 1.9 mg/dL (1.8-2.4) Albumin 2.5 g/dL (3.4-5.0) Glucose (Fingerstick) 150 mg/dL (70-99) AILIN MCBRIDE MD November 04, 2016 09:39
--- NOTE | 2016-11-04 10:27 | PDOC ---
PROGRESS NOTES Chief Complaint Chief Complaint cc:CHF exacerbation dilated cardiomyopathy, ischemic GI bleed, anemia malnutrition acute renal failure on CKD 3 , w/ iron deficiency CAD, angina, Hx CABG DM2, Hypertension Hyperlipidemia weakness and debility History of Present Illness History of Present Illness awake, was up to chair talkative and pleasant, no new complaint feels improved still, Vitals Vitals Vital Signs Date Time Temp Pulse Resp B/P (MAP) Pulse Ox O2 Delivery O2 Flow Rate FiO2 11/04/16 09:47 95 Nasal Cannula 4.0 11/04/16 08:41 63 137/59 11/04/16 08:00 98.7 20 98.7 Physical Exam General: Alert, Cooperative, No acute distress, Other (oriented 2/3) Heart: Regular rate, Normal S1, Normal S2, No murmurs Lungs: Crackles, Other (few rhonchi) Abdomen: Normal bowel sounds, Soft Extremities: No clubbing, Normal pulses Skin: No rashes, No breakdown Labs LABS Laboratory Tests Test 11/03/16 12:25 11/03/16 12:42 11/03/16 17:22 11/03/16 21:06 Glucose (Fingerstick) 112 mg/dL (70-99) 139 mg/dL (70-99) 141 mg/dL (70-99) Urine Collection Type U cath Urine Color Dk yellow Urine Clarity Clear Urine pH 8.0 Urine Specific [place] 1.025 Urine Protein 30 mg/dL (NEG-TRACE) Urine Glucose (UA) Negative mg/dL (NEG) Urine Ketones (Stick) Negative mg/dL (NEG) Urine Blood Moderate (NEG) Urine Nitrite Negative (NEG) Urine Bilirubin Negative (NEG) Urine Urobilinogen Dipstick 4.0 mg/dL (0.2 mg/dL) Urine Leukocyte Esterase Negative (NEG) Urine RBC 11-20 /HPF (0-2) Urine WBC Rare /HPF (0-4) Urine Squamous Epithelial Cells None /LPF Urine Bacteria Few /HPF (0-FEW) Urine Mucus Slight /LPF Urine Random Sodium 126 mmol/L (Not Estab.) Test 11/04/16 05:00 11/04/16 08:35 Sodium Level 130 mmol/L (136-145) Potassium Level 4.5 mmol/L (3.5-5.1) Chloride Level 97 mmol/L (98-107) Carbon Dioxide Level 26 mmol/L (21-32) Anion Gap 7 (6-14) Blood Urea Nitrogen 20 mg/dL (8-26) Creatinine 1.0 mg/dL (0.7-1.3) Estimated GFR (Cockcroft-Gault) 73.5 Glucose Level 114 mg/dL (70-99) Calcium Level 7.9 mg/dL (8.5-10.1) Phosphorus Level 3.5 mg/dL (2.6-4.7) Magnesium Level 1.9 mg/dL (1.8-2.4) Albumin 2.5 g/dL (3.4-5.0) Glucose (Fingerstick) 150 mg/dL (70-99) Assessment and Plan Assessmemt and Plan Problems Medical Problems: (1) CHF exacerbation Status: Acute Problems: Comment Review of Relevant I have reviewed the following items dorian (where applicable) has been applied. Labs Laboratory Tests Test 11/02/16 17:27 11/02/16 21:16 11/03/16 06:30 11/03/16 08:06 Glucose (Fingerstick) 166 mg/dL (70-99) 177 mg/dL (70-99) 120 mg/dL (70-99) White Blood Count 9.7 x10^3/uL (4.0-11.0) Red Blood Count 3.84 x10^6/uL (4.30-5.70) Hemoglobin 9.9 g/dL (13.0-17.5) Hematocrit 30.9 % (39.0-53.0) Mean Corpuscular Volume 81 fL (79-100) Mean Corpuscular Hemoglobin 26 pg (25-35) Mean Corpuscular Hemoglobin Concent 32 g/dL (31-37) Red Cell Distribution Width 19.2 % (11.5-14.5) Platelet Count 259 x10^3/uL (140-400) Sodium Level 128 mmol/L (136-145) Potassium Level 4.4 mmol/L (3.5-5.1) Chloride Level 95 mmol/L (98-107) Carbon Dioxide Level 27 mmol/L (21-32) Anion Gap 6 (6-14) Blood Urea Nitrogen 17 mg/dL (8-26) Creatinine 0.9 mg/dL (0.7-1.3) Estimated GFR (Cockcroft-Gault) 82.9 Glucose Level 127 mg/dL (70-99) Calcium Level 7.9 mg/dL (8.5-10.1) Phosphorus Level 2.7 mg/dL (2.6-4.7) Magnesium Level 1.6 mg/dL (1.8-2.4) Albumin 2.4 g/dL (3.4-5.0) Test 11/03/16 12:25 11/03/16 12:42 11/03/16 17:22 11/03/16 21:06 Glucose (Fingerstick) 112 mg/dL (70-99) 139 mg/dL (70-99) 141 mg/dL (70-99) Urine Collection Type U cath Urine Color Dk yellow Urine Clarity Clear Urine pH 8.0 Urine Specific [place] 1.025 Urine Protein 30 mg/dL (NEG-TRACE) Urine Glucose (UA) Negative mg/dL (NEG) Urine Ketones (Stick) Negative mg/dL (NEG) Urine Blood Moderate (NEG) Urine Nitrite Negative (NEG) Urine Bilirubin Negative (NEG) Urine Urobilinogen Dipstick 4.0 mg/dL (0.2 mg/dL) Urine Leukocyte Esterase Negative (NEG) Urine RBC 11-20 /HPF (0-2) Urine WBC Rare /HPF (0-4) Urine Squamous Epithelial Cells None /LPF Urine Bacteria Few /HPF (0-FEW) Urine Mucus Slight /LPF Urine Random Sodium 126 mmol/L (Not Estab.) Test 11/04/16 05:00 11/04/16 08:35 Sodium Level 130 mmol/L (136-145) Potassium Level 4.5 mmol/L (3.5-5.1) Chloride Level 97 mmol/L (98-107) Carbon Dioxide Level 26 mmol/L (21-32) Anion Gap 7 (6-14) Blood Urea Nitrogen 20 mg/dL (8-26) Creatinine 1.0 mg/dL (0.7-1.3) Estimated GFR (Cockcroft-Gault) 73.5 Glucose Level 114 mg/dL (70-99) Calcium Level 7.9 mg/dL (8.5-10.1) Phosphorus Level 3.5 mg/dL (2.6-4.7) Magnesium Level 1.9 mg/dL (1.8-2.4) Albumin 2.5 g/dL (3.4-5.0) Glucose (Fingerstick) 150 mg/dL (70-99) Laboratory Tests Test 11/03/16 12:25 11/03/16 12:42 11/03/16 17:22 11/03/16 21:06 Glucose (Fingerstick) 112 mg/dL (70-99) 139 mg/dL (70-99) 141 mg/dL (70-99) Urine Collection Type U cath Urine Color Dk yellow Urine Clarity Clear Urine pH 8.0 Urine Specific [place] 1.025 Urine Protein 30 mg/dL (NEG-TRACE) Urine Glucose (UA) Negative mg/dL (NEG) Urine Ketones (Stick) Negative mg/dL (NEG) Urine Blood Moderate (NEG) Urine Nitrite Negative (NEG) Urine Bilirubin Negative (NEG) Urine Urobilinogen Dipstick 4.0 mg/dL (0.2 mg/dL) Urine Leukocyte Esterase Negative (NEG) Urine RBC 11-20 /HPF (0-2) Urine WBC Rare /HPF (0-4) Urine Squamous Epithelial Cells None /LPF Urine Bacteria Few /HPF (0-FEW) Urine Mucus Slight /LPF Urine Random Sodium 126 mmol/L (Not Estab.) Test 11/04/16 05:00 11/04/16 08:35 Sodium Level 130 mmol/L (136-145) Potassium Level 4.5 mmol/L (3.5-5.1) Chloride Level 97 mmol/L (98-107) Carbon Dioxide Level 26 mmol/L (21-32) Anion Gap 7 (6-14) Blood Urea Nitrogen 20 mg/dL (8-26) Creatinine 1.0 mg/dL (0.7-1.3) Estimated GFR (Cockcroft-Gault) 73.5 Glucose Level 114 mg/dL (70-99) Calcium Level 7.9 mg/dL (8.5-10.1) Phosphorus Level 3.5 mg/dL (2.6-4.7) Magnesium Level 1.9 mg/dL (1.8-2.4) Albumin 2.5 g/dL (3.4-5.0) Glucose (Fingerstick) 150 mg/dL (70-99) Microbiology 11/03/16 Blood Culture - Preliminary, Resulted NO GROWTH AFTER 1 DAY 10/27/16 Urine Culture - Final, Complete 10/27/16 Urine Culture Result 1 (JANEL) - Final, Complete Medications Current Medications Pantoprazole Sodium (Protonix Vial) 40 mg DAILYAC IVP Last administered on 08:32; Start 10/26/16 at 17:00; Stop 10/30/16 at 11:57; Status DC Dobutamine HCl/ Dextrose 250 ml @ 0 mls/hr CONT PRN IV SEE I/O RECORD Last administered on 10/29/16 03:02; Start 10/26/16 at 17:00; Stop 10/30/16 at 10:57 ; Status DC Furosemide (Lasix) 60 mg 1X ONCE IVP Last administered on 10/27/16 08:15; Start 10/27/16 at 08:30; Stop 10/27/16 at 08:31; Status DC Sodium Bicarbonate 50 meq Q2HR IV Last administered on 10/27/16 12:38; Start 10/27/16 at 10:00; Stop 10/27/16 at 12:01; Status DC Albuterol/ Ipratropium (Duoneb) 3 ml RTQID NEB Last administered on 11/04/16 08 :41; Start 10/27/16 at 12:00 Heparin Sodium (Porcine) (Heparin Sodium) 10,000 unit STK-MED ONCE .ROUTE ; Start 10/27/16 at 10:01; Stop 10/27/16 at 10:02; Status DC Lidocaine/Sodium Bicarbonate (Buffered Lidocaine 1%) 20 ml STK-MED ONCE IJ ; Start 10/27/16 at 10:01; Stop 10/27/16 at 10:02; Status DC Heparin Sodium/ Sodium Chloride 500 ml @ As Directed STK-MED ONCE .ROUTE ; Start 10/27/16 at 10:01; Stop 10/27/16 at 10:02; Status DC Lidocaine/Sodium Bicarbonate (Buffered Lidocaine 1%) 3 ml 1X ONCE IJ Last administered on 10/27/16 12:16; Start 10/27/16 at 10:15; Stop 10/27/16 at 10:16 ; Status DC Heparin Sodium/ Sodium Chloride 60 unit 1X ONCE IV Last administered on 12:14; Start 10/27/16 at 10:15; Stop 10/27/16 at 10:16; Status DC Heparin Sodium (Porcine) (Heparin Sodium) 2,500 unit 1X ONCE INT CAT Last administered on 10/27/16 12:16; Start 10/27/16 at 10:15; Stop 10/27/16 at 10:16 ; Status DC Aspirin (Krystian Aspirin) 325 mg DAILY PO Last administered on 11/04/16 07:29; Start 10/27/16 at 12:00 Vitamin D (Vitamin D3) 1,000 unit DAILY PO Last administered on 11/04/16 07:29 ; Start 10/27/16 at 12:00 Diltiazem HCl (Cardizem Cd) 300 mg DAILY PO Last administered on 11/04/16 08:41 ; Start 10/27/16 at 12:00 Furosemide (Lasix) 40 mg [id number] PO Last administered on 10/28/16 17:13; Start 10/27/16 at 12:00; Stop 10/29/16 at 07:12; Status DC Insulin Aspart (Novolog) 11 units TIDWMEALS SQ Last administered on 11/04/16 08 :43; Start 10/27/16 at 12:00 Levothyroxine Sodium (Synthroid) 125 mcg DAILY07 PO Last administered on 07:30; Start 10/27/16 at 12:00 Lisinopril (Prinivil) 40 mg DAILY PO Last administered on 11/04/16 08:40; Start 10/27/16 at 12:00 Methocarbamol (Robaxin) 500 mg PRN TID PRN PO MUSCLE SPASMS Last administered on 11/03/16 20:50; Start 10/27/16 at 11:15 Tamsulosin HCl (Flomax) 0.4 mg QHS PO Last administered on 11/03/16 20:27; Start 10/27/16 at 21:00 Albuterol Sulfate (Ventolin Neb Soln) 2.5 mg PRN Q4HRS PRN NEB SHORTNESS OF BREATH Last administered on 10/30/16 01:38; Start 10/27/16 at 11:30 Brimonidine Tartrate (Alphagan) 1 drop BID OU Last administered on 11/04/16 07: 30; Start 10/27/16 at 12:00 Artificial Tears (Artificial Tears) 1 drop PRN Q15MIN PRN OU DRY EYE; Start at 11:30 Ferrous Sulfate (Feosol) 325 mg BIDWMEALS PO Last administered on 11/04/16 07: 30; Start 10/27/16 at 12:00 Gabapentin (Neurontin) 300 mg BID PO Last administered on 11/04/16 07:29; Start 10/27/16 at 12:00 Non-Formulary Medication 1 inh QID IH ; Start 10/27/16 at 13:00; Status UNV Non-Formulary Medication 1 each TID TP ; Start 10/27/16 at 14:00; Status UNV Non-Formulary Medication 1 tab BID PO ; Start 10/27/16 at 21:00; Status UNV Potassium Chloride (Klor-Con) 10 meq [id number] PO Last administered on 07:30; Start 10/28/16 at 08:00 Atorvastatin Calcium (Lipitor) 20 mg QHS PO Last administered on 11/03/16 20:27 ; Start 10/27/16 at 21:00 Linagliptin (Tradjenta) 5 mg DAILY PO Last administered on 11/04/16 07:29; Start 10/27/16 at 12:00 Furosemide (Lasix) 60 mg 1X ONCE IVP ; Start 10/28/16 at 08:00; Stop 10/28/16 at 08:01; Status DC Sodium Bicarbonate 50 meq Q2HR IV Last administered on 10/29/16 10:14; Start 10/29/16 at 08:00; Stop 10/29/16 at 10:01; Status DC Sodium Bicarbonate 150 meq/Sterile Water 1,150 ml @ 80 mls/hr [id number] PRN IV . Last administered on 10/29/16 16:41; Start 10/29/16 at 07:45; Stop 10/30/16 at 12:28; Status DC Sodium Chloride 500 ml @ 30 mls/hr CONT PRN PRN IV see comments; Start at 07:45; Stop 10/30/16 at 12:28; Status DC Acetaminophen (Tylenol) 650 mg PRN Q6HRS PRN PO PAIN Last administered on 16:52; Start 10/29/16 at 11:15 Nystatin (Nystop) 1 summer TID PRN PRN TP REDNESS; Start 10/29/16 at 11:15 Multi-Ingredient Ointment (Analgesic Rogers) 1 summer PRN QID PRN TP MUSCLE PAIN Last administered on 10/30/16 16:52; Start 10/29/16 at 11:15 Magnesium Sulfate/ Dextrose 50 ml @ 25 mls/hr PRN DAILY PRN IV for Mag < 1.7 on am labs; Start 10/30/16 at 09:45 Dobutamine HCl/ Dextrose 250 ml @ 0 mls/hr CONT PRN IV SEE I/O RECORD Last administered on 11/01/16 18:04; Start 10/30/16 at 11:00; Stop 11/03/16 at 11:16; Status DC Pantoprazole Sodium (Protonix) 40 mg DAILYAC PO Last administered on 11/04/16 07:30; Start 10/31/16 at 07:30 Iron Sucrose 200 mg/Sodium Chloride 110 ml @ 55 mls/hr 3X/WEEK IV Last administered on 11/03/16 08:54; Start 11/01/16 at 09:00; Stop 11/10/16 at 10:59 Sodium Chloride 500 ml @ 30 mls/hr CONT PRN PRN IV see comments Last administered on 11/01/16 03:29; Start 10/31/16 at 09:00; Stop 11/03/16 at 15:31; Status DC Acetaminophen/ Hydrocodone Bitart (Lortab 5/325) 1 tab PRN Q4HRS PRN PO PAIN Last administered on 11/04/16 08:40; Start 10/31/16 at 20:30 Furosemide (Lasix) 20 mg 1X ONCE IVP ; Start 11/01/16 at 15:45; Stop 11/01/16 at 16:05; Status DC Furosemide (Lasix) 20 mg 1X ONCE IVP Last administered on 11/01/16 21:15; Start 11/01/16 at 21:15; Stop 11/01/16 at 21:16; Status DC Magnesium Sulfate/ Dextrose 100 ml @ 100 mls/hr 1X ONCE IV Last administered on 11/02/16 09:45; Start 11/02/16 at 09:45; Stop 11/02/16 at 10:44; Status DC Sodium Acetate 75 meq/Sodium Chloride 1,037.5 ml @ 75 mls/hr [id number] IV Last administered on 11/03/16 01:24; Start 11/02/16 at 10:00 Acetylcysteine (Mucomyst 20% Oral Solution) 1,200 mg BID PO Last administered on 11/04/16 09:21; Start 11/02/16 at 09:45; Stop 11/04/16 at 09:44; Status DC Heparin Sodium/ Sodium Chloride 500 ml @ As Directed STK-MED ONCE .ROUTE ; Start 11/02/16 at 12:13; Stop 11/02/16 at 12:14; Status DC Lidocaine HCl 20 ml STK-MED ONCE .ROUTE ; Start 11/02/16 at 12:13; Stop 11/02/16 at 12:14; Status DC Iodixanol (Visipaque 320) 100 ml STK-MED ONCE .ROUTE ; Start 11/02/16 at 12:13; Stop 11/02/16 at 12:14; Status DC Midazolam HCl (Versed) 2 mg STK-MED ONCE .ROUTE ; Start 11/02/16 at 13:10; Stop 11/02/16 at 13:11; Status DC Fentanyl Citrate (Fentanyl 2ml Vial) 100 mcg STK-MED ONCE .ROUTE ; Start at 13:10; Stop 11/02/16 at 13:11; Status DC Lidocaine HCl 20 ml 1X ONCE IJ Last administered on 11/02/16 13:51; Start 11/02 at 13:30; Stop 11/02/16 at 13:32; Status DC Heparin Sodium/ Sodium Chloride 1,000 unit 1X ONCE IV Last administered on 11/02 13:51; Start 11/02/16 at 13:30; Stop 11/02/16 at 13:32; Status DC Fentanyl Citrate (Fentanyl 2ml Vial) 25 mcg 1X ONCE IV Last administered on 13:52; Start 11/02/16 at 13:30; Stop 11/02/16 at 13:32; Status DC Midazolam HCl (Versed) 1 mg 1X ONCE IV Last administered on 11/02/16 13:52; Start 11/02/16 at 13:30; Stop 11/02/16 at 13:32; Status DC Iodixanol (Visipaque 320) 100 ml 1X ONCE IART Last administered on 11/02/16 13 :52; Start 11/02/16 at 13:30; Stop 11/02/16 at 13:32; Status DC Info (Do NOT chart on this entry -- for MONITORING) 1 each PRN DAILY PRN MC SEE COMMENTS; Start 11/02/16 at 13:45; Stop 11/04/16 at 13:44 Iodixanol (Visipaque 320) 100 ml STK-MED ONCE .ROUTE ; Start 11/02/16 at 13:35; Stop 11/02/16 at 13:36; Status DC Magnesium Sulfate/ Dextrose 50 ml @ 25 mls/hr 1X ONCE IV Last administered on 11/03/16 11:12; Start 11/03/16 at 11:00; Stop 11/03/16 at 12:59; Status DC Sodium Chloride 500 ml @ 500 mls/hr 1X ONCE IV ; Start 11/03/16 at 10:45; Stop 11/03/16 at 11:44; Status DC Albumin Human 500 ml @ 125 mls/hr 1X ONCE IV Last administered on 11/03/16 12 :23; Start 11/03/16 at 11:15; Stop 11/03/16 at 15:14; Status DC Active Scripts Active Reported Tamsulosin Hcl 0.4 Mg Cap.er.24h 0.4 Mg PO QHS Onglyza (Saxagliptin Hcl) 5 Mg Tablet 1 Tab PO DAILY Crestor (Rosuvastatin Calcium) 10 Mg Tablet 0.5 Tab PO DAILY Potassium Chloride 20 Meq Tablet.er 10 Meq PO DAILY Omeprazole 20 Mg Tablet.dr 1 Tab PO BID Nitrostat (Nitroglycerin) 0.3 Mg Tab.subl 0.3 Mg SL PRN Q5MIN PRN Methocarbamol 500 Mg Tablet 500 Mg PO PRN TID PRN [place] Ultra Strength (Menthol) 1 Each Adh..patch 1 Each TP TID Lisinopril 40 Mg Tablet 1 Tab PO DAILY Levothyroxine Sodium 125 Mcg Tablet 1 Tab PO DAILY Novolog Flexpen (Insulin Aspart) 100 Unit/1 Ml Insuln.pen 11 Unit SQ TIDWMEALS Gabapentin 300 Mg Capsule 300 Mg PO TID Furosemide 40 Mg Tablet 40 Mg PO BID Ferrous Sulfate 324 Mg Tablet.dr 324 Mg PO BID Cardizem Cd (Diltiazem Hcl) 300 Mg Cap.er.24h 300 Mg PO DAILY Vitamin D3 (Cholecalciferol (Vitamin D3)) 1,000 Unit Tablet 1 Tab PO DAILY Refresh Optive Advanced Drops (Carboxymethyl/Glycerin/Poly80) 10 Ml Drops 1 Drop OP PRN QID PRN Alphagan P (Brimonidine Tartrate) 5 Ml Drops 1 Drop EACHEYE BID Aspirin 325 Mg Tablet 1 Tab PO DAILY Albuterol Sulfate Conc Neb Soln (Albuterol Sulfate) 2.5 Mg/0.5 Ml Vial.neb 1 Vial NEB Q4HRS Combivent Respimat Inhal (Ipratropium/Albuterol Sulfate) 4 Gm Aer.w.adap 1 Inh IH QID Vitals/I & O Vital Sign - Last 24 Hours 11/03/16 11/03/16 11/03/16 11/03/16 11:00 11:49 12:00 12:00 Temp 98.5 98.5 Pulse 71 71 Resp 25 21 B/P (MAP) 80/49 (59) 85/54 (64) Pulse Ox 97 95 94 O2 Delivery Nasal Cannula Nasal Cannula Nasal Cannula Nasal Cannula O2 Flow Rate 5.0 4.0 4.0 4.0 11/03/16 11/03/16 11/03/16 11/03/16 13:00 14:00 15:00 15:24 Pulse 70 70 70 Resp 20 20 20 B/P (MAP) 78/48 (58) 76/49 (58) 92/51 (65) Pulse Ox 94 94 94 96 O2 Delivery Nasal Cannula Nasal Cannula Nasal Cannula Nasal Cannula O2 Flow Rate 4.0 4.0 4.0 4.0 11/03/16 11/03/16 11/03/16 11/03/16 16:30 18:00 19:09 19:22 Temp 98.6 97.7 98.6 97.7 Pulse 70 70 61 Resp 20 20 22 16 B/P (MAP) 102/59 (73) 105/54 (71) 108/54 (72) Pulse Ox 94 94 91 O2 Delivery Nasal Cannula Nasal Cannula Nasal Cannula Nasal Cannula O2 Flow Rate 4.0 4.0 5.0 5.0 11/03/16 11/03/16 11/03/16 11/03/16 19:23 20:09 20:39 23:07 Resp 22 Pulse Ox 95 100 O2 Delivery Nasal Cannula Nasal Cannula BiPAP/CPAP O2 Flow Rate 5.0 4.0 11/03/16 11/04/16 11/04/16 11/04/16 23:31 00:13 01:57 03:45 Temp 97.5 97.5 Pulse 62 Resp 20 B/P (MAP) 89/46 (60) Pulse Ox 93 99 99 100 O2 Delivery BiPAP/CPAP BiPAP/CPAP BiPAP/CPAP BiPAP/CPAP 11/04/16 11/04/16 11/04/16 11/04/16 03:59 08:00 08:09 08:40 Temp 98.8 98.7 98.8 98.7 Pulse 63 60 63 Resp 18 20 B/P (MAP) 109/57 (74) 137/59 (85) 137/59 Pulse Ox 97 94 O2 Delivery BiPAP/CPAP Nasal Cannula Nasal Cannula O2 Flow Rate 5.0 5.0 11/04/16 11/04/16 11/04/16 11/04/16 08:40 08:41 08:42 09:47 Pulse 63 B/P (MAP) 137/59 Pulse Ox 97 95 95 O2 Delivery Nasal Cannula Nasal Cannula Nasal Cannula O2 Flow Rate 5.0 4.0 4.0 Intake and Output 11/03/16 11/03/16 11/04/16 15:00 23:00 07:00 Intake Total 1330 ml 100 ml 250 ml Output Total 405 ml 225 ml 225 ml Balance 925 ml -125 ml 25 ml RADU BAUTISTA MD November 04, 2016 10:27
--- NOTE | 2016-11-04 14:26 | PDOC ---
PROGRESS NOTES Subjective Subjective Patient has no new complaints. His blood pressure has been low however as usual he is asymptomatic with it. He is off the dobutamine drip now. Objective Objective Vital Signs Date Time Temp Pulse Resp B/P (MAP) Pulse Ox O2 Delivery O2 Flow Rate FiO2 11/04/16 12:00 98.9 61 22 85/50 (62) 92 Nasal Cannula 5.0 98.9 Intake and Output 11/04/16 07:00 Intake Total 1680 ml Output Total 855 ml Balance 825 ml Intake Oral 712 ml IV Total 968 ml Output Urine Total 855 ml Physical Exam Physical Exam No significant changes in cardiac exam Assessment Assessment Problems Medical Problems: This patient seems to be doing a little better in spite of his low blood pressure which is a chronic problem for him. I would recommend the insertion of a long-term IV access such as a Port-A-Cath to be able to do dobutamine infusions twice a week most likely for life. Once the port is inserted patient may be discharged. I we will not be here tomorrow and Dr. Cuellar will be covering. If there are any cardiac issues you may call Dr. Cuellar. Otherwise I will see the patient on Sunday. Comment Review of Relevant I have reviewed the following items dorian (where applicable) has been applied. Labs Laboratory Tests Test 11/02/16 17:27 11/02/16 21:16 11/03/16 06:30 11/03/16 08:06 Glucose (Fingerstick) 166 mg/dL (70-99) 177 mg/dL (70-99) 120 mg/dL (70-99) White Blood Count 9.7 x10^3/uL (4.0-11.0) Red Blood Count 3.84 x10^6/uL (4.30-5.70) Hemoglobin 9.9 g/dL (13.0-17.5) Hematocrit 30.9 % (39.0-53.0) Mean Corpuscular Volume 81 fL (79-100) Mean Corpuscular Hemoglobin 26 pg (25-35) Mean Corpuscular Hemoglobin Concent 32 g/dL (31-37) Red Cell Distribution Width 19.2 % (11.5-14.5) Platelet Count 259 x10^3/uL (140-400) Sodium Level 128 mmol/L (136-145) Potassium Level 4.4 mmol/L (3.5-5.1) Chloride Level 95 mmol/L (98-107) Carbon Dioxide Level 27 mmol/L (21-32) Anion Gap 6 (6-14) Blood Urea Nitrogen 17 mg/dL (8-26) Creatinine 0.9 mg/dL (0.7-1.3) Estimated GFR (Cockcroft-Gault) 82.9 Glucose Level 127 mg/dL (70-99) Calcium Level 7.9 mg/dL (8.5-10.1) Phosphorus Level 2.7 mg/dL (2.6-4.7) Magnesium Level 1.6 mg/dL (1.8-2.4) Albumin 2.4 g/dL (3.4-5.0) Test 11/03/16 12:25 11/03/16 12:42 11/03/16 17:22 11/03/16 21:06 Glucose (Fingerstick) 112 mg/dL (70-99) 139 mg/dL (70-99) 141 mg/dL (70-99) Urine Collection Type U cath Urine Color Dk yellow Urine Clarity Clear Urine pH 8.0 Urine Specific [place] 1.025 Urine Protein 30 mg/dL (NEG-TRACE) Urine Glucose (UA) Negative mg/dL (NEG) Urine Ketones (Stick) Negative mg/dL (NEG) Urine Blood Moderate (NEG) Urine Nitrite Negative (NEG) Urine Bilirubin Negative (NEG) Urine Urobilinogen Dipstick 4.0 mg/dL (0.2 mg/dL) Urine Leukocyte Esterase Negative (NEG) Urine RBC 11-20 /HPF (0-2) Urine WBC Rare /HPF (0-4) Urine Squamous Epithelial Cells None /LPF Urine Bacteria Few /HPF (0-FEW) Urine Mucus Slight /LPF Urine Random Sodium 126 mmol/L (Not Estab.) Test 11/04/16 05:00 11/04/16 08:35 11/04/16 12:09 Sodium Level 130 mmol/L (136-145) Potassium Level 4.5 mmol/L (3.5-5.1) Chloride Level 97 mmol/L (98-107) Carbon Dioxide Level 26 mmol/L (21-32) Anion Gap 7 (6-14) Blood Urea Nitrogen 20 mg/dL (8-26) Creatinine 1.0 mg/dL (0.7-1.3) Estimated GFR (Cockcroft-Gault) 73.5 Glucose Level 114 mg/dL (70-99) Calcium Level 7.9 mg/dL (8.5-10.1) Phosphorus Level 3.5 mg/dL (2.6-4.7) Magnesium Level 1.9 mg/dL (1.8-2.4) Albumin 2.5 g/dL (3.4-5.0) Glucose (Fingerstick) 150 mg/dL (70-99) 226 mg/dL (70-99) Laboratory Tests Test 11/03/16 17:22 11/03/16 21:06 11/04/16 05:00 11/04/16 08:35 Glucose (Fingerstick) 139 mg/dL (70-99) 141 mg/dL (70-99) 150 mg/dL (70-99) Sodium Level 130 mmol/L (136-145) Potassium Level 4.5 mmol/L (3.5-5.1) Chloride Level 97 mmol/L (98-107) Carbon Dioxide Level 26 mmol/L (21-32) Anion Gap 7 (6-14) Blood Urea Nitrogen 20 mg/dL (8-26) Creatinine 1.0 mg/dL (0.7-1.3) Estimated GFR (Cockcroft-Gault) 73.5 Glucose Level 114 mg/dL (70-99) Calcium Level 7.9 mg/dL (8.5-10.1) Phosphorus Level 3.5 mg/dL (2.6-4.7) Magnesium Level 1.9 mg/dL (1.8-2.4) Albumin 2.5 g/dL (3.4-5.0) Test 11/04/16 12:09 Glucose (Fingerstick) 226 mg/dL (70-99) Microbiology 11/03/16 Blood Culture - Preliminary, Resulted NO GROWTH AFTER 1 DAY 10/27/16 Urine Culture - Final, Complete 10/27/16 Urine Culture Result 1 (JANEL) - Final, Complete Medications Current Medications Pantoprazole Sodium (Protonix Vial) 40 mg DAILYAC IVP Last administered on t 08:32; Start 10/26/16 at 17:00; Stop 10/30/16 at 11:57; Status DC Dobutamine HCl/ Dextrose 250 ml @ 0 mls/hr CONT PRN IV SEE I/O RECORD Last administered on 10/29/16 03:02; Start 10/26/16 at 17:00; Stop 10/30/16 at 10:57 ; Status DC Furosemide (Lasix) 60 mg 1X ONCE IVP Last administered on 10/27/16 08:15; Start 10/27/16 at 08:30; Stop 10/27/16 at 08:31; Status DC Sodium Bicarbonate 50 meq Q2HR IV Last administered on 10/27/16 12:38; Start 10/27/16 at 10:00; Stop 10/27/16 at 12:01; Status DC Albuterol/ Ipratropium (Duoneb) 3 ml RTQID NEB Last administered on 11/04/16 11 :51; Start 10/27/16 at 12:00 Heparin Sodium (Porcine) (Heparin Sodium) 10,000 unit STK-MED ONCE .ROUTE ; Start 10/27/16 at 10:01; Stop 10/27/16 at 10:02; Status DC Lidocaine/Sodium Bicarbonate (Buffered Lidocaine 1%) 20 ml STK-MED ONCE IJ ; Start 10/27/16 at 10:01; Stop 10/27/16 at 10:02; Status DC Heparin Sodium/ Sodium Chloride 500 ml @ As Directed STK-MED ONCE .ROUTE ; Start 10/27/16 at 10:01; Stop 10/27/16 at 10:02; Status DC Lidocaine/Sodium Bicarbonate (Buffered Lidocaine 1%) 3 ml 1X ONCE IJ Last administered on 10/27/16 12:16; Start 10/27/16 at 10:15; Stop 10/27/16 at 10:16 ; Status DC Heparin Sodium/ Sodium Chloride 60 unit 1X ONCE IV Last administered on 12:14; Start 10/27/16 at 10:15; Stop 10/27/16 at 10:16; Status DC Heparin Sodium (Porcine) (Heparin Sodium) 2,500 unit 1X ONCE INT CAT Last administered on 10/27/16 12:16; Start 10/27/16 at 10:15; Stop 10/27/16 at 10:16 ; Status DC Aspirin (Krystian Aspirin) 325 mg DAILY PO Last administered on 11/04/16 07:29; Start 10/27/16 at 12:00 Vitamin D (Vitamin D3) 1,000 unit DAILY PO Last administered on 11/04/16 07:29 ; Start 10/27/16 at 12:00 Diltiazem HCl (Cardizem Cd) 300 mg DAILY PO Last administered on 11/04/16 08:41 ; Start 10/27/16 at 12:00 Furosemide (Lasix) 40 mg [id number] PO Last administered on 10/28/16 17:13; Start 10/27/16 at 12:00; Stop 10/29/16 at 07:12; Status DC Insulin Aspart (Novolog) 11 units TIDWMEALS SQ Last administered on 11/04/16 12 :52; Start 10/27/16 at 12:00 Levothyroxine Sodium (Synthroid) 125 mcg DAILY07 PO Last administered on 07:30; Start 10/27/16 at 12:00 Lisinopril (Prinivil) 40 mg DAILY PO Last administered on 11/04/16 08:40; Start 10/27/16 at 12:00 Methocarbamol (Robaxin) 500 mg PRN TID PRN PO MUSCLE SPASMS Last administered on 11/03/16 20:50; Start 10/27/16 at 11:15 Tamsulosin HCl (Flomax) 0.4 mg QHS PO Last administered on 11/03/16 20:27; Start 10/27/16 at 21:00 Albuterol Sulfate (Ventolin Neb Soln) 2.5 mg PRN Q4HRS PRN NEB SHORTNESS OF BREATH Last administered on 10/30/16 01:38; Start 10/27/16 at 11:30 Brimonidine Tartrate (Alphagan) 1 drop BID OU Last administered on 11/04/16 07: 30; Start 10/27/16 at 12:00 Artificial Tears (Artificial Tears) 1 drop PRN Q15MIN PRN OU DRY EYE; Start at 11:30 Ferrous Sulfate (Feosol) 325 mg BIDWMEALS PO Last administered on 11/04/16 07: 30; Start 10/27/16 at 12:00 Gabapentin (Neurontin) 300 mg BID PO Last administered on 11/04/16 07:29; Start 10/27/16 at 12:00 Non-Formulary Medication 1 inh QID IH ; Start 10/27/16 at 13:00; Status UNV Non-Formulary Medication 1 each TID TP ; Start 10/27/16 at 14:00; Status UNV Non-Formulary Medication 1 tab BID PO ; Start 10/27/16 at 21:00; Status UNV Potassium Chloride (Klor-Con) 10 meq [id number] PO Last administered on 07:30; Start 10/28/16 at 08:00 Atorvastatin Calcium (Lipitor) 20 mg QHS PO Last administered on 11/03/16 20:27 ; Start 10/27/16 at 21:00 Linagliptin (Tradjenta) 5 mg DAILY PO Last administered on 11/04/16 07:29; Start 10/27/16 at 12:00 Furosemide (Lasix) 60 mg 1X ONCE IVP ; Start 10/28/16 at 08:00; Stop 10/28/16 at 08:01; Status DC Sodium Bicarbonate 50 meq Q2HR IV Last administered on 10/29/16 10:14; Start 10/29/16 at 08:00; Stop 10/29/16 at 10:01; Status DC Sodium Bicarbonate 150 meq/Sterile Water 1,150 ml @ 80 mls/hr [id number] PRN IV . Last administered on 10/29/16 16:41; Start 10/29/16 at 07:45; Stop 10/30/16 at 12:28; Status DC Sodium Chloride 500 ml @ 30 mls/hr CONT PRN PRN IV see comments; Start at 07:45; Stop 10/30/16 at 12:28; Status DC Acetaminophen (Tylenol) 650 mg PRN Q6HRS PRN PO PAIN Last administered on 16:52; Start 10/29/16 at 11:15 Nystatin (Nystop) 1 summer TID PRN PRN TP REDNESS; Start 10/29/16 at 11:15 Multi-Ingredient Ointment (Analgesic [place]) 1 summer PRN QID PRN TP MUSCLE PAIN Last administered on 10/30/16 16:52; Start 10/29/16 at 11:15 Magnesium Sulfate/ Dextrose 50 ml @ 25 mls/hr PRN DAILY PRN IV for Mag < 1.7 on am labs; Start 10/30/16 at 09:45 Dobutamine HCl/ Dextrose 250 ml @ 0 mls/hr CONT PRN IV SEE I/O RECORD Last administered on 11/01/16 18:04; Start 10/30/16 at 11:00; Stop 11/03/16 at 11:16; Status DC Pantoprazole Sodium (Protonix) 40 mg DAILYAC PO Last administered on 11/04/16 07:30; Start 10/31/16 at 07:30 Iron Sucrose 200 mg/Sodium Chloride 110 ml @ 55 mls/hr 3X/WEEK IV Last administered on 11/03/16 08:54; Start 11/01/16 at 09:00; Stop 11/10/16 at 10:59 Sodium Chloride 500 ml @ 30 mls/hr CONT PRN PRN IV see comments Last administered on 11/01/16 03:29; Start 10/31/16 at 09:00; Stop 11/03/16 at 15:31; Status DC Acetaminophen/ Hydrocodone Bitart (Lortab 5/325) 1 tab PRN Q4HRS PRN PO PAIN Last administered on 11/04/16 08:40; Start 10/31/16 at 20:30 Furosemide (Lasix) 20 mg 1X ONCE IVP ; Start 11/01/16 at 15:45; Stop 11/01/16 at 16:05; Status DC Furosemide (Lasix) 20 mg 1X ONCE IVP Last administered on 11/01/16 21:15; Start 11/01/16 at 21:15; Stop 11/01/16 at 21:16; Status DC Magnesium Sulfate/ Dextrose 100 ml @ 100 mls/hr 1X ONCE IV Last administered on 11/02/16 09:45; Start 11/02/16 at 09:45; Stop 11/02/16 at 10:44; Status DC Sodium Acetate 75 meq/Sodium Chloride 1,037.5 ml @ 75 mls/hr [id number] IV Last administered on 11/03/16 01:24; Start 11/02/16 at 10:00 Acetylcysteine (Mucomyst 20% Oral Solution) 1,200 mg BID PO Last administered on 11/04/16 09:21; Start 11/02/16 at 09:45; Stop 11/04/16 at 09:44; Status DC Heparin Sodium/ Sodium Chloride 500 ml @ As Directed STK-MED ONCE .ROUTE ; Start 11/02/16 at 12:13; Stop 11/02/16 at 12:14; Status DC Lidocaine HCl 20 ml STK-MED ONCE .ROUTE ; Start 11/02/16 at 12:13; Stop 11/02/16 at 12:14; Status DC Iodixanol (Visipaque 320) 100 ml STK-MED ONCE .ROUTE ; Start 11/02/16 at 12:13; Stop 11/02/16 at 12:14; Status DC Midazolam HCl (Versed) 2 mg STK-MED ONCE .ROUTE ; Start 11/02/16 at 13:10; Stop 11/02/16 at 13:11; Status DC Fentanyl Citrate (Fentanyl 2ml Vial) 100 mcg STK-MED ONCE .ROUTE ; Start at 13:10; Stop 11/02/16 at 13:11; Status DC Lidocaine HCl 20 ml 1X ONCE IJ Last administered on 11/02/16 13:51; Start 11/02 at 13:30; Stop 11/02/16 at 13:32; Status DC Heparin Sodium/ Sodium Chloride 1,000 unit 1X ONCE IV Last administered on 11/02 13:51; Start 11/02/16 at 13:30; Stop 11/02/16 at 13:32; Status DC Fentanyl Citrate (Fentanyl 2ml Vial) 25 mcg 1X ONCE IV Last administered on 13:52; Start 11/02/16 at 13:30; Stop 11/02/16 at 13:32; Status DC Midazolam HCl (Versed) 1 mg 1X ONCE IV Last administered on 11/02/16 13:52; Start 11/02/16 at 13:30; Stop 11/02/16 at 13:32; Status DC Iodixanol (Visipaque 320) 100 ml 1X ONCE IART Last administered on 11/02/16 13 :52; Start 11/02/16 at 13:30; Stop 11/02/16 at 13:32; Status DC Info (Do NOT chart on this entry -- for MONITORING) 1 each PRN DAILY PRN MC SEE COMMENTS; Start 11/02/16 at 13:45; Stop 11/04/16 at 13:44; Status DC Iodixanol (Visipaque 320) 100 ml STK-MED ONCE .ROUTE ; Start 11/02/16 at 13:35; Stop 11/02/16 at 13:36; Status DC Magnesium Sulfate/ Dextrose 50 ml @ 25 mls/hr 1X ONCE IV Last administered on 11/03/16 11:12; Start 11/03/16 at 11:00; Stop 11/03/16 at 12:59; Status DC Sodium Chloride 500 ml @ 500 mls/hr 1X ONCE IV ; Start 11/03/16 at 10:45; Stop 11/03/16 at 11:44; Status DC Albumin Human 500 ml @ 125 mls/hr 1X ONCE IV Last administered on 11/03/16 12 :23; Start 11/03/16 at 11:15; Stop 11/03/16 at 15:14; Status DC Active Scripts Active Reported Tamsulosin Hcl 0.4 Mg Cap.er.24h 0.4 Mg PO QHS Onglyza (Saxagliptin Hcl) 5 Mg Tablet 1 Tab PO DAILY Crestor (Rosuvastatin Calcium) 10 Mg Tablet 0.5 Tab PO DAILY Potassium Chloride 20 Meq Tablet.er 10 Meq PO DAILY Omeprazole 20 Mg Tablet.dr 1 Tab PO BID Nitrostat (Nitroglycerin) 0.3 Mg Tab.subl 0.3 Mg SL PRN Q5MIN PRN Methocarbamol 500 Mg Tablet 500 Mg PO PRN TID PRN [place] Ultra Strength (Menthol) 1 Each Adh..patch 1 Each TP TID Lisinopril 40 Mg Tablet 1 Tab PO DAILY Levothyroxine Sodium 125 Mcg Tablet 1 Tab PO DAILY Novolog Flexpen (Insulin Aspart) 100 Unit/1 Ml Insuln.pen 11 Unit SQ TIDWMEALS Gabapentin 300 Mg Capsule 300 Mg PO TID Furosemide 40 Mg Tablet 40 Mg PO BID Ferrous Sulfate 324 Mg Tablet.dr 324 Mg PO BID Cardizem Cd (Diltiazem Hcl) 300 Mg Cap.er.24h 300 Mg PO DAILY Vitamin D3 (Cholecalciferol (Vitamin D3)) 1,000 Unit Tablet 1 Tab PO DAILY Refresh Optive Advanced Drops (Carboxymethyl/Glycerin/Poly80) 10 Ml Drops 1 Drop OP PRN QID PRN Alphagan P (Brimonidine Tartrate) 5 Ml Drops 1 Drop EACHEYE BID Aspirin 325 Mg Tablet 1 Tab PO DAILY Albuterol Sulfate Conc Neb Soln (Albuterol Sulfate) 2.5 Mg/0.5 Ml Vial.neb 1 Vial NEB Q4HRS Combivent Respimat Inhal (Ipratropium/Albuterol Sulfate) 4 Gm Aer.w.adap 1 Inh IH QID Vitals/I & O Vital Sign - Last 24 Hours 11/03/16 11/03/16 11/03/16 11/03/16 15:00 15:24 16:30 18:00 Temp 98.6 98.6 Pulse 70 70 70 Resp 20 20 20 B/P (MAP) 92/51 (65) 102/59 (73) 105/54 (71) Pulse Ox 94 96 94 94 O2 Delivery Nasal Cannula Nasal Cannula Nasal Cannula Nasal Cannula O2 Flow Rate 4.0 4.0 4.0 4.0 11/03/16 11/03/16 11/03/16 11/03/16 19:09 19:22 19:23 20:09 Temp 97.7 97.7 Pulse 61 Resp 22 16 22 B/P (MAP) 108/54 (72) Pulse Ox 91 O2 Delivery Nasal Cannula Nasal Cannula Nasal Cannula O2 Flow Rate 5.0 5.0 5.0 11/03/16 11/03/16 11/03/16 11/04/16 20:39 23:07 23:31 00:13 Temp 97.5 97.5 Pulse 62 Resp 20 B/P (MAP) 89/46 (60) Pulse Ox 95 100 93 99 O2 Delivery Nasal Cannula BiPAP/CPAP BiPAP/CPAP BiPAP/CPAP O2 Flow Rate 4.0 11/04/16 11/04/16 11/04/16 11/04/16 01:57 03:45 03:59 08:00 Temp 98.8 98.7 98.8 98.7 Pulse 63 60 Resp 18 20 B/P (MAP) 109/57 (74) 137/59 (85) Pulse Ox 99 100 97 94 O2 Delivery BiPAP/CPAP BiPAP/CPAP BiPAP/CPAP Nasal Cannula O2 Flow Rate 5.0 11/04/16 11/04/16 11/04/16 11/04/16 08:09 08:40 08:40 08:41 Pulse 63 63 B/P (MAP) 137/59 137/59 Pulse Ox 97 O2 Delivery Nasal Cannula Nasal Cannula O2 Flow Rate 5.0 5.0 11/04/16 11/04/16 11/04/16 11/04/16 08:42 09:47 11:54 12:00 Temp 98.9 98.9 Pulse 61 Resp 22 B/P (MAP) 85/50 (62) Pulse Ox 95 95 97 92 O2 Delivery Nasal Cannula Nasal Cannula Nasal Cannula Nasal Cannula O2 Flow Rate 4.0 4.0 4.0 5.0 Intake and Output 11/03/16 11/03/16 11/04/16 15:00 23:00 07:00 Intake Total 1330 ml 100 ml 250 ml Output Total 405 ml 225 ml 225 ml Balance 925 ml -125 ml 25 ml WENDIE ANGEL MD November 04, 2016 14:26
[2016-11-04] MEDS: ATORVASTATIN CALCIUM 20 MG TABLET PO SCH (21:15)
[2016-11-04] MEDS: TAMSULOSIN 0.4 MG CAP.ER.24H. PO SCH (21:15)
[2016-11-05 04:00] VITALS: BP 115/53
[2016-11-05 05:24] LABS: BASO % 1 % (0-3); EOS % 1 % (0-3); HEMATOCRIT 29.1 % (39.0-53.0); HEMOGLOBIN 9.3 g/dL (13.0-17.5); LYMPH # 1.4 x10^3/uL (1.0-4.8); LYMPH % 19 % (24-48); MEAN CORPUSCULAR HEMOGLOBIN 26 pg (25-35); MEAN CORPUSCULAR HGB CONC 32 g/dL (31-37); MEAN CORPUSCULAR VOLUME 81 fL (79-100); MONO % 9 % (0-9); NEUT % 71 % (31-73); PLATELET COUNT 265 x10^3/uL (140-400); RED BLOOD COUNT 3.59 x10^6/uL (4.30-5.70); RED CELL DISTRIBUTION WIDTH 19.5 % (11.5-14.5); WHITE BLOOD COUNT 7.4 x10^3/uL (4.0-11.0)
[2016-11-05 05:48] LABS: ALBUMIN 2.5 g/dL (3.4-5.0); CALCIUM 7.7 mg/dL (8.5-10.1); CREATININE 1.2 mg/dL (0.7-1.3); GFR 59.5; PHOSPHORUS 3.5 mg/dL (2.6-4.7); POTASSIUM 4.8 mmol/L (3.5-5.1)
[2016-11-05] MEDS: SODIUM ACETATE IV SCH (07:10)
[2016-11-05] MEDS: 1/2 NORMAL SALINE IV SCH (07:10)
[2016-11-05] MEDS: IPRATRPIUM/ALBUTEROL 0.5/2.5MG 3 ML NEBU. NEB SCH ×4 (07:39→19:57)
[2016-11-05 08:00] VITALS: BP 95/38
[2016-11-05] MEDS: ASPIRIN 325 MG TABLET PO SCH (08:24)
[2016-11-05] MEDS: PANTOPRAZOLE 40 MG TABLET.DR. PO SCH (08:25)
[2016-11-05] MEDS: FERROUS SULFATE 325 MG TABLET. PO SCH ×2 (08:25→17:32)
[2016-11-05] MEDS: POTASSIUM CHLORIDE 10 MEQ TABLET.ER. PO SCH (08:25)
[2016-11-05] MEDS: LINAGLIPTIN 5 MG TABLET PO SCH (08:25)
[2016-11-05] MEDS: GABAPENTIN 300 MG CAPSULE. PO SCH ×2 (08:25→21:29)
[2016-11-05] MEDS: LEVOTHYROXINE 125 MCG TABLET PO SCH (08:25)
[2016-11-05] MEDS: CHOLECALCIFEROL (VITAMIN D3) 1,000 UNIT TABLET PO SCH (08:25)
[2016-11-05] MEDS: BRIMONIDINE 0.2% OPHTH SOLUTION 5ML BOTTLE. OU SCH ×2 (08:26→21:30)
[2016-11-05] MEDS: INSULIN ASPART 300 UNITS/3 ML INSULN.PEN SQ SCH ×3 (08:31→17:34)
[2016-11-05] MEDS: LISINOPRIL 40 MG TABLET. PO SCH (09:00)
--- NOTE | 2016-11-05 09:05 | PDOC ---
PULMONARY PROGRESS NOTES Subjective used bipap last night. on o2 now no pain, sob,better. has cough, no cp, has had episodes of low bp Vitals Vital Signs Date Time Temp Pulse Resp B/P (MAP) Pulse Ox O2 Delivery O2 Flow Rate FiO2 11/05/16 08:00 98.9 63 18 95/38 (57) 94 Nasal Cannula 98.9 11/05/16 07:40 4.0 ROS: No Nausea, No Chest Pain, No Abdominal Pain, No Increase Cough General: Alert, No acute distress HEENT: Other (nc at perrl nose throat clear) Lungs: Clear Cardiovascular: S1, S2 Abdomen: Soft, Non-tender, Other (no mass) Neuro Exam: Alert Extremities: Other (1+edema) Skin: Warm Labs Laboratory Tests Test 11/03/16 12:25 11/03/16 12:42 11/03/16 17:22 11/03/16 21:06 Glucose (Fingerstick) 112 mg/dL (70-99) 139 mg/dL (70-99) 141 mg/dL (70-99) Urine Collection Type U cath Urine Color Dk yellow Urine Clarity Clear Urine pH 8.0 Urine Specific [place] 1.025 Urine Protein 30 mg/dL (NEG-TRACE) Urine Glucose (UA) Negative mg/dL (NEG) Urine Ketones (Stick) Negative mg/dL (NEG) Urine Blood Moderate (NEG) Urine Nitrite Negative (NEG) Urine Bilirubin Negative (NEG) Urine Urobilinogen Dipstick 4.0 mg/dL (0.2 mg/dL) Urine Leukocyte Esterase Negative (NEG) Urine RBC 11-20 /HPF (0-2) Urine WBC Rare /HPF (0-4) Urine Squamous Epithelial Cells None /LPF Urine Bacteria Few /HPF (0-FEW) Urine Mucus Slight /LPF Urine Random Sodium 126 mmol/L (Not Estab.) Test 11/04/16 05:00 11/04/16 08:35 11/04/16 12:09 11/04/16 17:09 Sodium Level 130 mmol/L (136-145) Potassium Level 4.5 mmol/L (3.5-5.1) Chloride Level 97 mmol/L (98-107) Carbon Dioxide Level 26 mmol/L (21-32) Anion Gap 7 (6-14) Blood Urea Nitrogen 20 mg/dL (8-26) Creatinine 1.0 mg/dL (0.7-1.3) Estimated GFR (Cockcroft-Gault) 73.5 Glucose Level 114 mg/dL (70-99) Calcium Level 7.9 mg/dL (8.5-10.1) Phosphorus Level 3.5 mg/dL (2.6-4.7) Magnesium Level 1.9 mg/dL (1.8-2.4) Albumin 2.5 g/dL (3.4-5.0) Glucose (Fingerstick) 150 mg/dL (70-99) 226 mg/dL (70-99) 139 mg/dL (70-99) Test 11/04/16 20:58 11/05/16 04:00 11/05/16 07:55 Glucose (Fingerstick) 124 mg/dL (70-99) 126 mg/dL (70-99) White Blood Count 7.4 x10^3/uL (4.0-11.0) Red Blood Count 3.59 x10^6/uL (4.30-5.70) Hemoglobin 9.3 g/dL (13.0-17.5) Hematocrit 29.1 % (39.0-53.0) Mean Corpuscular Volume 81 fL (79-100) Mean Corpuscular Hemoglobin 26 pg (25-35) Mean Corpuscular Hemoglobin Concent 32 g/dL (31-37) Red Cell Distribution Width 19.5 % (11.5-14.5) Platelet Count 265 x10^3/uL (140-400) Neutrophils (%) (Auto) 71 % (31-73) Lymphocytes (%) (Auto) 19 % (24-48) Monocytes (%) (Auto) 9 % (0-9) Eosinophils (%) (Auto) 1 % (0-3) Basophils (%) (Auto) 1 % (0-3) Neutrophils # (Auto) 5.3 x10^3uL (1.8-7.7) Lymphocytes # (Auto) 1.4 x10^3/uL (1.0-4.8) Monocytes # (Auto) 0.6 x10^3/uL (0.0-1.1) Eosinophils # (Auto) 0.1 x10^3/uL (0.0-0.7) Basophils # (Auto) 0.0 x10^3/uL (0.0-0.2) Sodium Level 130 mmol/L (136-145) Potassium Level 4.8 mmol/L (3.5-5.1) Chloride Level 97 mmol/L (98-107) Carbon Dioxide Level 25 mmol/L (21-32) Anion Gap 8 (6-14) Blood Urea Nitrogen 22 mg/dL (8-26) Creatinine 1.2 mg/dL (0.7-1.3) Estimated GFR (Cockcroft-Gault) 59.5 Glucose Level 115 mg/dL (70-99) Calcium Level 7.7 mg/dL (8.5-10.1) Phosphorus Level 3.5 mg/dL (2.6-4.7) Albumin 2.5 g/dL (3.4-5.0) Laboratory Tests Test 11/04/16 12:09 11/04/16 17:09 11/04/16 20:58 11/05/16 04:00 Glucose (Fingerstick) 226 mg/dL (70-99) 139 mg/dL (70-99) 124 mg/dL (70-99) White Blood Count 7.4 x10^3/uL (4.0-11.0) Red Blood Count 3.59 x10^6/uL (4.30-5.70) Hemoglobin 9.3 g/dL (13.0-17.5) Hematocrit 29.1 % (39.0-53.0) Mean Corpuscular Volume 81 fL (79-100) Mean Corpuscular Hemoglobin 26 pg (25-35) Mean Corpuscular Hemoglobin Concent 32 g/dL (31-37) Red Cell Distribution Width 19.5 % (11.5-14.5) Platelet Count 265 x10^3/uL (140-400) Neutrophils (%) (Auto) 71 % (31-73) Lymphocytes (%) (Auto) 19 % (24-48) Monocytes (%) (Auto) 9 % (0-9) Eosinophils (%) (Auto) 1 % (0-3) Basophils (%) (Auto) 1 % (0-3) Neutrophils # (Auto) 5.3 x10^3uL (1.8-7.7) Lymphocytes # (Auto) 1.4 x10^3/uL (1.0-4.8) Monocytes # (Auto) 0.6 x10^3/uL (0.0-1.1) Eosinophils # (Auto) 0.1 x10^3/uL (0.0-0.7) Basophils # (Auto) 0.0 x10^3/uL (0.0-0.2) Sodium Level 130 mmol/L (136-145) Potassium Level 4.8 mmol/L (3.5-5.1) Chloride Level 97 mmol/L (98-107) Carbon Dioxide Level 25 mmol/L (21-32) Anion Gap 8 (6-14) Blood Urea Nitrogen 22 mg/dL (8-26) Creatinine 1.2 mg/dL (0.7-1.3) Estimated GFR (Cockcroft-Gault) 59.5 Glucose Level 115 mg/dL (70-99) Calcium Level 7.7 mg/dL (8.5-10.1) Phosphorus Level 3.5 mg/dL (2.6-4.7) Albumin 2.5 g/dL (3.4-5.0) Test 11/05/16 07:55 Glucose (Fingerstick) 126 mg/dL (70-99) Medications Active Scripts Medications Dose Route/Sig Days Date Category Tamsulosin Hcl 0.4 Mg Cap.er.24h 0.4 Mg PO QHS 10/27/16 Reported Onglyza (Saxagliptin Hcl) 5 Mg Tablet 1 Tab PO DAILY 10/27/16 Reported Crestor (Rosuvastatin Calcium) 10 Mg Tablet 0.5 Tab PO DAILY 10/27/16 Reported Potassium Chloride 20 Meq Tablet.er 10 Meq PO DAILY 10/27/16 Reported Omeprazole 20 Mg Tablet.dr 1 Tab PO BID 10/27/16 Reported Nitrostat (Nitroglycerin) 0.3 Mg Tab.subl 0.3 Mg SL PRN Q5MIN PRN 10/27/16 Reported Methocarbamol 500 Mg Tablet 500 Mg PO PRN TID PRN 10/27/16 Reported Bengay Ultra Strength (Menthol) 1 Each Adh..patch 1 Each TP TID 10/27/16 Reported Lisinopril 40 Mg Tablet 1 Tab PO DAILY 10/27/16 Reported Levothyroxine Sodium 125 Mcg Tablet 1 Tab PO DAILY 10/27/16 Reported Novolog Flexpen (Insulin Aspart) 100 Unit/1 Ml Insuln.pen 11 Unit SQ TIDWMEALS 10/27/16 Reported Gabapentin 300 Mg Capsule 300 Mg PO TID 10/27/16 Reported Furosemide 40 Mg Tablet 40 Mg PO BID 10/27/16 Reported Ferrous Sulfate 324 Mg Tablet.dr 324 Mg PO BID 10/27/16 Reported Cardizem Cd (Diltiazem Hcl) 300 Mg Cap.er.24h 300 Mg PO DAILY 10/27/16 Reported Vitamin D3 (Cholecalciferol (Vitamin D3)) 1,000 Unit Tablet 1 Tab PO DAILY 10/27/16 Reported Refresh Optive Advanced Drops (Carboxymethyl/Glycerin/Poly80) 10 Ml Drops 1 Drop OP PRN QID PRN 10/27/16 Reported Alphagan P (Brimonidine Tartrate) 5 Ml Drops 1 Drop EACHEYE BID 10/27/16 Reported Aspirin 325 Mg Tablet 1 Tab PO DAILY 10/27/16 Reported Albuterol Sulfate Conc Neb Soln (Albuterol Sulfate) 2.5 Mg/0.5 Ml Vial.neb 1 Vial NEB Q4HRS 10/27/16 Reported Combivent Respimat Inhal (Ipratropium/Albuterol Sulfate) 4 Gm Aer.w.adap 1 Inh IH QID 10/27/16 Reported Comments cxr reviewed, l small effusion, atelectasis Impression . 1. Acute hypoxemic respiratory failure/AECOPD/ Acute on chronic systolic/ Diastolic HF 2. Acute on chronic kidney failure. 3. Chronic heart failure, Acute on chronic systolic/ diastolic heart failure. 4. Cardiomyopathy. (EF 25 ) 5. Status post pacemaker. 6. Coronary artery disease, status post coronary artery bypass grafting. 7. Hypertension. 8. Obstructive sleep apnea. 9. Acute on chronic blood-loss anemia. Plan . 1. BiPAP prn during day, cont at night 2. Venous Dopplers of the lower extremities, neg 3. Follow cardiology input/ cath severe cad, cm, pulm htn, dobutamine per cardiology 4. No need for antibiotics. 5. Monitor hemoglobin and hematocrit. 6. monitor k d/w RN/RT, pt SAIRA GUPTA MD November 05, 2016 09:05
[2016-11-05 12:00] VITALS: BP 84/43
--- NOTE | 2016-11-05 12:40 | PDOC ---
PROGRESS NOTES Chief Complaint Chief Complaint cc:CHF exacerbation dilated cardiomyopathy, ischemic GI bleed, anemia malnutrition acute renal failure on CKD 3 , w/ iron deficiency CAD, angina, Hx CABG DM2, Hypertension Hyperlipidemia weakness and debility History of Present Illness History of Present Illness awake, was up to chair talkative and pleasant, no new complaint feels improved still, Vitals Vitals Vital Signs Date Time Temp Pulse Resp B/P (MAP) Pulse Ox O2 Delivery O2 Flow Rate FiO2 11/05/16 12:00 97.9 63 22 84/43 (57) 90 Nasal Cannula 97.9 11/05/16 11:13 4.0 Physical Exam General: Alert, Cooperative, No acute distress, Other (oriented 2/3) Heart: Regular rate, Normal S1, Normal S2, No murmurs Lungs: Clear Abdomen: Normal bowel sounds, Soft Extremities: No clubbing, Normal pulses Skin: No rashes, No breakdown Labs LABS Laboratory Tests Test 11/04/16 17:09 11/04/16 20:58 11/05/16 04:00 11/05/16 07:55 Glucose (Fingerstick) 139 mg/dL (70-99) 124 mg/dL (70-99) 126 mg/dL (70-99) White Blood Count 7.4 x10^3/uL (4.0-11.0) Red Blood Count 3.59 x10^6/uL (4.30-5.70) Hemoglobin 9.3 g/dL (13.0-17.5) Hematocrit 29.1 % (39.0-53.0) Mean Corpuscular Volume 81 fL (79-100) Mean Corpuscular Hemoglobin 26 pg (25-35) Mean Corpuscular Hemoglobin Concent 32 g/dL (31-37) Red Cell Distribution Width 19.5 % (11.5-14.5) Platelet Count 265 x10^3/uL (140-400) Neutrophils (%) (Auto) 71 % (31-73) Lymphocytes (%) (Auto) 19 % (24-48) Monocytes (%) (Auto) 9 % (0-9) Eosinophils (%) (Auto) 1 % (0-3) Basophils (%) (Auto) 1 % (0-3) Neutrophils # (Auto) 5.3 x10^3uL (1.8-7.7) Lymphocytes # (Auto) 1.4 x10^3/uL (1.0-4.8) Monocytes # (Auto) 0.6 x10^3/uL (0.0-1.1) Eosinophils # (Auto) 0.1 x10^3/uL (0.0-0.7) Basophils # (Auto) 0.0 x10^3/uL (0.0-0.2) Sodium Level 130 mmol/L (136-145) Potassium Level 4.8 mmol/L (3.5-5.1) Chloride Level 97 mmol/L (98-107) Carbon Dioxide Level 25 mmol/L (21-32) Anion Gap 8 (6-14) Blood Urea Nitrogen 22 mg/dL (8-26) Creatinine 1.2 mg/dL (0.7-1.3) Estimated GFR (Cockcroft-Gault) 59.5 Glucose Level 115 mg/dL (70-99) Calcium Level 7.7 mg/dL (8.5-10.1) Phosphorus Level 3.5 mg/dL (2.6-4.7) Albumin 2.5 g/dL (3.4-5.0) Test 11/05/16 11:45 Glucose (Fingerstick) 159 mg/dL (70-99) Assessment and Plan Assessmemt and Plan CHF management up to chair PT and ot Problems Medical Problems: (1) CHF exacerbation Status: Acute Problems: Comment Review of Relevant I have reviewed the following items dorian (where applicable) has been applied. Labs Laboratory Tests Test 11/03/16 12:42 11/03/16 17:22 11/03/16 21:06 11/04/16 05:00 Urine Collection Type U cath Urine Color Dk yellow Urine Clarity Clear Urine pH 8.0 Urine Specific [place] 1.025 Urine Protein 30 mg/dL (NEG-TRACE) Urine Glucose (UA) Negative mg/dL (NEG) Urine Ketones (Stick) Negative mg/dL (NEG) Urine Blood Moderate (NEG) Urine Nitrite Negative (NEG) Urine Bilirubin Negative (NEG) Urine Urobilinogen Dipstick 4.0 mg/dL (0.2 mg/dL) Urine Leukocyte Esterase Negative (NEG) Urine RBC 11-20 /HPF (0-2) Urine WBC Rare /HPF (0-4) Urine Squamous Epithelial Cells None /LPF Urine Bacteria Few /HPF (0-FEW) Urine Mucus Slight /LPF Urine Random Sodium 126 mmol/L (Not Estab.) Glucose (Fingerstick) 139 mg/dL (70-99) 141 mg/dL (70-99) Sodium Level 130 mmol/L (136-145) Potassium Level 4.5 mmol/L (3.5-5.1) Chloride Level 97 mmol/L (98-107) Carbon Dioxide Level 26 mmol/L (21-32) Anion Gap 7 (6-14) Blood Urea Nitrogen 20 mg/dL (8-26) Creatinine 1.0 mg/dL (0.7-1.3) Estimated GFR (Cockcroft-Gault) 73.5 Glucose Level 114 mg/dL (70-99) Calcium Level 7.9 mg/dL (8.5-10.1) Phosphorus Level 3.5 mg/dL (2.6-4.7) Magnesium Level 1.9 mg/dL (1.8-2.4) Albumin 2.5 g/dL (3.4-5.0) Test 11/04/16 08:35 11/04/16 12:09 11/04/16 17:09 11/04/16 20:58 Glucose (Fingerstick) 150 mg/dL (70-99) 226 mg/dL (70-99) 139 mg/dL (70-99) 124 mg/dL (70-99) Test 11/05/16 04:00 11/05/16 07:55 11/05/16 11:45 White Blood Count 7.4 x10^3/uL (4.0-11.0) Red Blood Count 3.59 x10^6/uL (4.30-5.70) Hemoglobin 9.3 g/dL (13.0-17.5) Hematocrit 29.1 % (39.0-53.0) Mean Corpuscular Volume 81 fL (79-100) Mean Corpuscular Hemoglobin 26 pg (25-35) Mean Corpuscular Hemoglobin Concent 32 g/dL (31-37) Red Cell Distribution Width 19.5 % (11.5-14.5) Platelet Count 265 x10^3/uL (140-400) Neutrophils (%) (Auto) 71 % (31-73) Lymphocytes (%) (Auto) 19 % (24-48) Monocytes (%) (Auto) 9 % (0-9) Eosinophils (%) (Auto) 1 % (0-3) Basophils (%) (Auto) 1 % (0-3) Neutrophils # (Auto) 5.3 x10^3uL (1.8-7.7) Lymphocytes # (Auto) 1.4 x10^3/uL (1.0-4.8) Monocytes # (Auto) 0.6 x10^3/uL (0.0-1.1) Eosinophils # (Auto) 0.1 x10^3/uL (0.0-0.7) Basophils # (Auto) 0.0 x10^3/uL (0.0-0.2) Sodium Level 130 mmol/L (136-145) Potassium Level 4.8 mmol/L (3.5-5.1) Chloride Level 97 mmol/L (98-107) Carbon Dioxide Level 25 mmol/L (21-32) Anion Gap 8 (6-14) Blood Urea Nitrogen 22 mg/dL (8-26) Creatinine 1.2 mg/dL (0.7-1.3) Estimated GFR (Cockcroft-Gault) 59.5 Glucose Level 115 mg/dL (70-99) Calcium Level 7.7 mg/dL (8.5-10.1) Phosphorus Level 3.5 mg/dL (2.6-4.7) Albumin 2.5 g/dL (3.4-5.0) Glucose (Fingerstick) 126 mg/dL (70-99) 159 mg/dL (70-99) Laboratory Tests Test 11/04/16 17:09 11/04/16 20:58 11/05/16 04:00 11/05/16 07:55 Glucose (Fingerstick) 139 mg/dL (70-99) 124 mg/dL (70-99) 126 mg/dL (70-99) White Blood Count 7.4 x10^3/uL (4.0-11.0) Red Blood Count 3.59 x10^6/uL (4.30-5.70) Hemoglobin 9.3 g/dL (13.0-17.5) Hematocrit 29.1 % (39.0-53.0) Mean Corpuscular Volume 81 fL (79-100) Mean Corpuscular Hemoglobin 26 pg (25-35) Mean Corpuscular Hemoglobin Concent 32 g/dL (31-37) Red Cell Distribution Width 19.5 % (11.5-14.5) Platelet Count 265 x10^3/uL (140-400) Neutrophils (%) (Auto) 71 % (31-73) Lymphocytes (%) (Auto) 19 % (24-48) Monocytes (%) (Auto) 9 % (0-9) Eosinophils (%) (Auto) 1 % (0-3) Basophils (%) (Auto) 1 % (0-3) Neutrophils # (Auto) 5.3 x10^3uL (1.8-7.7) Lymphocytes # (Auto) 1.4 x10^3/uL (1.0-4.8) Monocytes # (Auto) 0.6 x10^3/uL (0.0-1.1) Eosinophils # (Auto) 0.1 x10^3/uL (0.0-0.7) Basophils # (Auto) 0.0 x10^3/uL (0.0-0.2) Sodium Level 130 mmol/L (136-145) Potassium Level 4.8 mmol/L (3.5-5.1) Chloride Level 97 mmol/L (98-107) Carbon Dioxide Level 25 mmol/L (21-32) Anion Gap 8 (6-14) Blood Urea Nitrogen 22 mg/dL (8-26) Creatinine 1.2 mg/dL (0.7-1.3) Estimated GFR (Cockcroft-Gault) 59.5 Glucose Level 115 mg/dL (70-99) Calcium Level 7.7 mg/dL (8.5-10.1) Phosphorus Level 3.5 mg/dL (2.6-4.7) Albumin 2.5 g/dL (3.4-5.0) Test 11/05/16 11:45 Glucose (Fingerstick) 159 mg/dL (70-99) Microbiology 11/03/16 Blood Culture - Preliminary, Resulted NO GROWTH AFTER 2 DAYS 10/27/16 Urine Culture - Final, Complete 10/27/16 Urine Culture Result 1 (JANEL) - Final, Complete Medications Current Medications Pantoprazole Sodium (Protonix Vial) 40 mg DAILYAC IVP Last administered on t 08:32; Start 4/27/17 at 17:00; Stop 10/30/16 at 11:57; Status DC Dobutamine HCl/ Dextrose 250 ml @ 0 mls/hr CONT PRN IV SEE I/O RECORD Last administered on 10/29/16 03:02; Start 10/26/16 at 17:00; Stop 10/30/16 at 10:57 ; Status DC Furosemide (Lasix) 60 mg 1X ONCE IVP Last administered on 10/27/16 08:15; Start 10/27/16 at 08:30; Stop 10/27/16 at 08:31; Status DC Sodium Bicarbonate 50 meq Q2HR IV Last administered on 10/27/16 12:38; Start 10/27/16 at 10:00; Stop 10/27/16 at 12:01; Status DC Albuterol/ Ipratropium (Duoneb) 3 ml RTQID NEB Last administered on 11/05/16 11 :13; Start 10/27/16 at 12:00 Heparin Sodium (Porcine) (Heparin Sodium) 10,000 unit STK-MED ONCE .ROUTE ; Start 10/27/16 at 10:01; Stop 10/27/16 at 10:02; Status DC Lidocaine/Sodium Bicarbonate (Buffered Lidocaine 1%) 20 ml STK-MED ONCE IJ ; Start 10/27/16 at 10:01; Stop 10/27/16 at 10:02; Status DC Heparin Sodium/ Sodium Chloride 500 ml @ As Directed STK-MED ONCE .ROUTE ; Start 10/27/16 at 10:01; Stop 10/27/16 at 10:02; Status DC Lidocaine/Sodium Bicarbonate (Buffered Lidocaine 1%) 3 ml 1X ONCE IJ Last administered on 10/27/16 12:16; Start 10/27/16 at 10:15; Stop 10/27/16 at 10:16 ; Status DC Heparin Sodium/ Sodium Chloride 60 unit 1X ONCE IV Last administered on 12:14; Start 10/27/16 at 10:15; Stop 10/27/16 at 10:16; Status DC Heparin Sodium (Porcine) (Heparin Sodium) 2,500 unit 1X ONCE INT CAT Last administered on 10/27/16 12:16; Start 10/27/16 at 10:15; Stop 10/27/16 at 10:16 ; Status DC Aspirin (Krystian Aspirin) 325 mg DAILY PO Last administered on 11/05/16 08:24; Start 10/27/16 at 12:00 Vitamin D (Vitamin D3) 1,000 unit DAILY PO Last administered on 11/05/16 08:25 ; Start 10/27/16 at 12:00 Diltiazem HCl (Cardizem Cd) 300 mg DAILY PO Last administered on 11/04/16 08:41 ; Start 10/27/16 at 12:00 Furosemide (Lasix) 40 mg [id number] PO Last administered on 10/28/16 17:13; Start 10/27/16 at 12:00; Stop 10/29/16 at 07:12; Status DC Insulin Aspart (Novolog) 11 units TIDWMEALS SQ Last administered on 11/05/16 12 :05; Start 10/27/16 at 12:00 Levothyroxine Sodium (Synthroid) 125 mcg DAILY07 PO Last administered on 08:25; Start 10/27/16 at 12:00 Lisinopril (Prinivil) 40 mg DAILY PO Last administered on 11/04/16 08:40; Start 10/27/16 at 12:00 Methocarbamol (Robaxin) 500 mg PRN TID PRN PO MUSCLE SPASMS Last administered on 11/03/16 20:50; Start 10/27/16 at 11:15 Tamsulosin HCl (Flomax) 0.4 mg QHS PO Last administered on 11/04/16 21:15; Start 10/27/16 at 21:00 Albuterol Sulfate (Ventolin Neb Soln) 2.5 mg PRN Q4HRS PRN NEB SHORTNESS OF BREATH Last administered on 10/30/16 01:38; Start 10/27/16 at 11:30 Brimonidine Tartrate (Alphagan) 1 drop BID OU Last administered on 11/05/16 08: 26; Start 10/27/16 at 12:00 Artificial Tears (Artificial Tears) 1 drop PRN Q15MIN PRN OU DRY EYE; Start at 11:30 Ferrous Sulfate (Feosol) 325 mg BIDWMEALS PO Last administered on 11/05/16 08: 25; Start 10/27/16 at 12:00 Gabapentin (Neurontin) 300 mg BID PO Last administered on 11/05/16 08:25; Start 10/27/16 at 12:00 Non-Formulary Medication 1 inh QID IH ; Start 10/27/16 at 13:00; Status UNV Non-Formulary Medication 1 each TID TP ; Start 10/27/16 at 14:00; Status UNV Non-Formulary Medication 1 tab BID PO ; Start 10/27/16 at 21:00; Status UNV Potassium Chloride (Klor-Con) 10 meq [id number] PO Last administered on 08:25; Start 10/28/16 at 08:00 Atorvastatin Calcium (Lipitor) 20 mg QHS PO Last administered on 11/04/16 21:15 ; Start 10/27/16 at 21:00 Linagliptin (Tradjenta) 5 mg DAILY PO Last administered on 11/05/16 08:25; Start 10/27/16 at 12:00 Furosemide (Lasix) 60 mg 1X ONCE IVP ; Start 10/28/16 at 08:00; Stop 10/28/16 at 08:01; Status DC Sodium Bicarbonate 50 meq Q2HR IV Last administered on 10/29/16 10:14; Start 10/29/16 at 08:00; Stop 10/29/16 at 10:01; Status DC Sodium Bicarbonate 150 meq/Sterile Water 1,150 ml @ 80 mls/hr [id number] PRN IV . Last administered on 10/29/16 16:41; Start 10/29/16 at 07:45; Stop 10/30/16 at 12:28; Status DC Sodium Chloride 500 ml @ 30 mls/hr CONT PRN PRN IV see comments; Start at 07:45; Stop 10/30/16 at 12:28; Status DC Acetaminophen (Tylenol) 650 mg PRN Q6HRS PRN PO PAIN Last administered on 16:52; Start 10/29/16 at 11:15 Nystatin (Nystop) 1 summer TID PRN PRN TP REDNESS; Start 10/29/16 at 11:15 Multi-Ingredient Ointment (Analgesic [place]) 1 summer PRN QID PRN TP MUSCLE PAIN Last administered on 10/30/16 16:52; Start 10/29/16 at 11:15 Magnesium Sulfate/ Dextrose 50 ml @ 25 mls/hr PRN DAILY PRN IV for Mag < 1.7 on am labs; Start 10/30/16 at 09:45 Dobutamine HCl/ Dextrose 250 ml @ 0 mls/hr CONT PRN IV SEE I/O RECORD Last administered on 11/01/16 18:04; Start 10/30/16 at 11:00; Stop 11/03/16 at 11:16; Status DC Pantoprazole Sodium (Protonix) 40 mg DAILYAC PO Last administered on 11/05/16 08:25; Start 10/31/16 at 07:30 Iron Sucrose 200 mg/Sodium Chloride 110 ml @ 55 mls/hr 3X/WEEK IV Last administered on 11/03/16 08:54; Start 11/01/16 at 09:00; Stop 11/10/16 at 10:59 Sodium Chloride 500 ml @ 30 mls/hr CONT PRN PRN IV see comments Last administered on 11/01/16 03:29; Start 10/31/16 at 09:00; Stop 11/03/16 at 15:31; Status DC Acetaminophen/ Hydrocodone Bitart (Lortab 5/325) 1 tab PRN Q4HRS PRN PO PAIN Last administered on 11/04/16 21:17; Start 10/31/16 at 20:30 Furosemide (Lasix) 20 mg 1X ONCE IVP ; Start 11/01/16 at 15:45; Stop 11/01/16 at 16:05; Status DC Furosemide (Lasix) 20 mg 1X ONCE IVP Last administered on 11/01/16 21:15; Start 11/01/16 at 21:15; Stop 11/01/16 at 21:16; Status DC Magnesium Sulfate/ Dextrose 100 ml @ 100 mls/hr 1X ONCE IV Last administered on 11/02/16 09:45; Start 11/02/16 at 09:45; Stop 11/02/16 at 10:44; Status DC Sodium Acetate 75 meq/Sodium Chloride 1,037.5 ml @ 75 mls/hr [id number] IV Last administered on 11/03/16 01:24; Start 11/02/16 at 10:00 Acetylcysteine (Mucomyst 20% Oral Solution) 1,200 mg BID PO Last administered on 11/04/16 09:21; Start 11/02/16 at 09:45; Stop 11/04/16 at 09:44; Status DC Heparin Sodium/ Sodium Chloride 500 ml @ As Directed STK-MED ONCE .ROUTE ; Start 11/02/16 at 12:13; Stop 11/02/16 at 12:14; Status DC Lidocaine HCl 20 ml STK-MED ONCE .ROUTE ; Start 11/02/16 at 12:13; Stop 11/02/16 at 12:14; Status DC Iodixanol (Visipaque 320) 100 ml STK-MED ONCE .ROUTE ; Start 11/02/16 at 12:13; Stop 11/02/16 at 12:14; Status DC Midazolam HCl (Versed) 2 mg STK-MED ONCE .ROUTE ; Start 11/02/16 at 13:10; Stop 11/02/16 at 13:11; Status DC Fentanyl Citrate (Fentanyl 2ml Vial) 100 mcg STK-MED ONCE .ROUTE ; Start at 13:10; Stop 11/02/16 at 13:11; Status DC Lidocaine HCl 20 ml 1X ONCE IJ Last administered on 11/02/16 13:51; Start 11/02 at 13:30; Stop 11/02/16 at 13:32; Status DC Heparin Sodium/ Sodium Chloride 1,000 unit 1X ONCE IV Last administered on 11/02 13:51; Start 11/02/16 at 13:30; Stop 11/02/16 at 13:32; Status DC Fentanyl Citrate (Fentanyl 2ml Vial) 25 mcg 1X ONCE IV Last administered on 13:52; Start 11/02/16 at 13:30; Stop 11/02/16 at 13:32; Status DC Midazolam HCl (Versed) 1 mg 1X ONCE IV Last administered on 11/02/16 13:52; Start 11/02/16 at 13:30; Stop 11/02/16 at 13:32; Status DC Iodixanol (Visipaque 320) 100 ml 1X ONCE IART Last administered on 11/02/16 13 :52; Start 11/02/16 at 13:30; Stop 11/02/16 at 13:32; Status DC Info (Do NOT chart on this entry -- for MONITORING) 1 each PRN DAILY PRN MC SEE COMMENTS; Start 11/02/16 at 13:45; Stop 11/04/16 at 13:44; Status DC Iodixanol (Visipaque 320) 100 ml STK-MED ONCE .ROUTE ; Start 11/02/16 at 13:35; Stop 11/02/16 at 13:36; Status DC Magnesium Sulfate/ Dextrose 50 ml @ 25 mls/hr 1X ONCE IV Last administered on 11/03/16 11:12; Start 11/03/16 at 11:00; Stop 11/03/16 at 12:59; Status DC Sodium Chloride 500 ml @ 500 mls/hr 1X ONCE IV ; Start 11/03/16 at 10:45; Stop 11/03/16 at 11:44; Status DC Albumin Human 500 ml @ 125 mls/hr 1X ONCE IV Last administered on 11/03/16 12 :23; Start 11/03/16 at 11:15; Stop 11/03/16 at 15:14; Status DC Active Scripts Active Reported Tamsulosin Hcl 0.4 Mg Cap.er.24h 0.4 Mg PO QHS Onglyza (Saxagliptin Hcl) 5 Mg Tablet 1 Tab PO DAILY Crestor (Rosuvastatin Calcium) 10 Mg Tablet 0.5 Tab PO DAILY Potassium Chloride 20 Meq Tablet.er 10 Meq PO DAILY Omeprazole 20 Mg Tablet.dr 1 Tab PO BID Nitrostat (Nitroglycerin) 0.3 Mg Tab.subl 0.3 Mg SL PRN Q5MIN PRN Methocarbamol 500 Mg Tablet 500 Mg PO PRN TID PRN [place] Ultra Strength (Menthol) 1 Each Adh..patch 1 Each TP TID Lisinopril 40 Mg Tablet 1 Tab PO DAILY Levothyroxine Sodium 125 Mcg Tablet 1 Tab PO DAILY Novolog Flexpen (Insulin Aspart) 100 Unit/1 Ml Insuln.pen 11 Unit SQ TIDWMEALS Gabapentin 300 Mg Capsule 300 Mg PO TID Furosemide 40 Mg Tablet 40 Mg PO BID Ferrous Sulfate 324 Mg Tablet.dr 324 Mg PO BID Cardizem Cd (Diltiazem Hcl) 300 Mg Cap.er.24h 300 Mg PO DAILY Vitamin D3 (Cholecalciferol (Vitamin D3)) 1,000 Unit Tablet 1 Tab PO DAILY Refresh Optive Advanced Drops (Carboxymethyl/Glycerin/Poly80) 10 Ml Drops 1 Drop OP PRN QID PRN Alphagan P (Brimonidine Tartrate) 5 Ml Drops 1 Drop EACHEYE BID Aspirin 325 Mg Tablet 1 Tab PO DAILY Albuterol Sulfate Conc Neb Soln (Albuterol Sulfate) 2.5 Mg/0.5 Ml Vial.neb 1 Vial NEB Q4HRS Combivent Respimat Inhal (Ipratropium/Albuterol Sulfate) 4 Gm Aer.w.adap 1 Inh IH QID Vitals/I & O Vital Sign - Last 24 Hours 11/04/16 11/04/16 11/04/16 11/04/16 16:00 16:21 17:19 19:46 Temp 97.7 97.7 Pulse 65 Resp 22 B/P (MAP) 99/45 (63) Pulse Ox 93 92 92 92 O2 Delivery Nasal Cannula Nasal Cannula Nasal Cannula Nasal Cannula O2 Flow Rate 5.0 4.0 4.0 4.0 11/04/16 11/04/16 11/04/16 11/04/16 19:53 20:00 20:00 21:17 Temp 98.6 98.6 Pulse 62 Resp 22 22 B/P (MAP) 93/52 (66) Pulse Ox 88 88 O2 Delivery Nasal Cannula Nasal Cannula Nasal Cannula O2 Flow Rate 4.0 4.0 4.0 4.0 11/04/16 11/04/16 11/04/16 11/04/16 22:20 23:02 23:02 23:04 Temp 98.2 98.2 Pulse 61 Resp 24 B/P (MAP) 146/54 (84) 106/41 (62) 84/48 (60) Pulse Ox 92 92 O2 Delivery Nasal Cannula BiPAP/CPAP O2 Flow Rate 4.0 11/05/16 11/05/16 11/05/16 11/05/16 01:02 02:55 04:00 04:30 Temp 98.2 98.2 Pulse 62 Resp 22 B/P (MAP) 115/53 (73) Pulse Ox 93 O2 Delivery BiPAP/CPAP BiPAP/CPAP BiPAP/CPAP BiPAP/CPAP 11/05/16 11/05/16 11/05/16 11/05/16 07:40 08:00 08:30 08:30 Temp 98.9 98.9 Pulse 63 Resp 18 B/P (MAP) 95/38 (57) Pulse Ox 96 94 O2 Delivery Nasal Cannula Nasal Cannula Nasal Cannula O2 Flow Rate 4.0 4.0 4.0 11/05/16 11/05/16 11/05/16 09:00 11:13 12:00 Temp 97.9 97.9 Pulse 63 63 Resp 22 B/P (MAP) 95/38 84/43 (57) Pulse Ox 90 O2 Delivery Nasal Cannula Nasal Cannula O2 Flow Rate 4.0 Intake and Output 11/04/16 11/04/16 11/05/16 15:00 23:00 07:00 Intake Total 60 ml 250 ml Output Total 600 ml 775 ml Balance -600 ml 60 ml -525 ml RADU BAUTISTA MD November 05, 2016 12:40
[2016-11-05 16:00] VITALS: BP 100/65
[2016-11-05 19:54] VITALS: BP 104/35
[2016-11-05] MEDS: HYDROcodone/APAP 5/325MG 1 TAB TABLET PO PRN (19:54)
[2016-11-05] MEDS: ATORVASTATIN CALCIUM 20 MG TABLET PO SCH (21:29)
[2016-11-05] MEDS: TAMSULOSIN 0.4 MG CAP.ER.24H. PO SCH (21:29)
[2016-11-05] MEDS: PROMETH/CODEINE 6.25/10MG 5 ML SYRUP. PO PRN (22:30)
[2016-11-05 23:01] VITALS: BP 97/52
[2016-11-06] VITALS (7 sets, daily range): BP systolic 92–118; BP diastolic 48–68
[2016-11-06 04:26] LABS: ALBUMIN 2.4 g/dL (3.4-5.0); CREATININE 1.1 mg/dL (0.7-1.3); GFR 65.8; PHOSPHORUS 3.7 mg/dL (2.6-4.7); POTASSIUM 4.8 mmol/L (3.5-5.1)
[2016-11-06] MEDS: INSULIN ASPART 300 UNITS/3 ML INSULN.PEN SQ SCH ×3 (08:00→18:19)
[2016-11-06] MEDS: IPRATRPIUM/ALBUTEROL 0.5/2.5MG 3 ML NEBU. NEB SCH ×4 (08:12→20:51)
[2016-11-06] MEDS: LISINOPRIL 40 MG TABLET. PO SCH (08:31)
[2016-11-06] MEDS: POTASSIUM CHLORIDE 10 MEQ TABLET.ER. PO SCH (08:32)
[2016-11-06] MEDS: LEVOTHYROXINE 125 MCG TABLET PO SCH (08:32)
[2016-11-06] MEDS: FERROUS SULFATE 325 MG TABLET. PO SCH ×2 (08:32→18:14)
[2016-11-06] MEDS: PANTOPRAZOLE 40 MG TABLET.DR. PO SCH (08:32)
[2016-11-06] MEDS: CHOLECALCIFEROL (VITAMIN D3) 1,000 UNIT TABLET PO SCH (08:32)
[2016-11-06] MEDS: LINAGLIPTIN 5 MG TABLET PO SCH (08:32)
[2016-11-06] MEDS: GABAPENTIN 300 MG CAPSULE. PO SCH ×2 (08:32→20:56)
[2016-11-06] MEDS: ASPIRIN 325 MG TABLET PO SCH (08:33)
[2016-11-06] MEDS: PROMETH/CODEINE 6.25/10MG 5 ML SYRUP. PO PRN ×2 (08:33→18:20)
[2016-11-06] MEDS: BRIMONIDINE 0.2% OPHTH SOLUTION 5ML BOTTLE. OU SCH ×2 (08:34→20:56)
[2016-11-06 08:39] LABS: INR 1.2 (0.8-1.1); PROTHROMBIN TIME PATIENT 14.1 SEC (11.7-14.0)
[2016-11-06] MEDS: IRON SUCROSE COMPLEX 200 MG in IV NORMAL SALINE 100ML 100 ML IV SCH (09:39)
--- NOTE | 2016-11-06 10:05 | PDOC ---
PULMONARY PROGRESS NOTES Subjective no soa Vitals Vital Signs Date Time Temp Pulse Resp B/P (MAP) Pulse Ox O2 Delivery O2 Flow Rate FiO2 11/06/16 08:33 64 102/63 11/06/16 08:14 95 Nasal Cannula 4.0 11/06/16 07:55 97.5 17 97.5 ROS: No Nausea, No Chest Pain, No Abdominal Pain, No Increase Cough General: Alert, No acute distress HEENT: Other (nc at perrl nose throat clear) Lungs: Clear Cardiovascular: S1, S2 Abdomen: Soft, Non-tender, Other (no mass) Neuro Exam: Alert Extremities: Other (1+edema) Skin: Warm Labs Laboratory Tests Test 11/04/16 12:09 11/04/16 17:09 11/04/16 20:58 11/05/16 04:00 Glucose (Fingerstick) 226 mg/dL (70-99) 139 mg/dL (70-99) 124 mg/dL (70-99) White Blood Count 7.4 x10^3/uL (4.0-11.0) Red Blood Count 3.59 x10^6/uL (4.30-5.70) Hemoglobin 9.3 g/dL (13.0-17.5) Hematocrit 29.1 % (39.0-53.0) Mean Corpuscular Volume 81 fL (79-100) Mean Corpuscular Hemoglobin 26 pg (25-35) Mean Corpuscular Hemoglobin Concent 32 g/dL (31-37) Red Cell Distribution Width 19.5 % (11.5-14.5) Platelet Count 265 x10^3/uL (140-400) Neutrophils (%) (Auto) 71 % (31-73) Lymphocytes (%) (Auto) 19 % (24-48) Monocytes (%) (Auto) 9 % (0-9) Eosinophils (%) (Auto) 1 % (0-3) Basophils (%) (Auto) 1 % (0-3) Neutrophils # (Auto) 5.3 x10^3uL (1.8-7.7) Lymphocytes # (Auto) 1.4 x10^3/uL (1.0-4.8) Monocytes # (Auto) 0.6 x10^3/uL (0.0-1.1) Eosinophils # (Auto) 0.1 x10^3/uL (0.0-0.7) Basophils # (Auto) 0.0 x10^3/uL (0.0-0.2) Sodium Level 130 mmol/L (136-145) Potassium Level 4.8 mmol/L (3.5-5.1) Chloride Level 97 mmol/L (98-107) Carbon Dioxide Level 25 mmol/L (21-32) Anion Gap 8 (6-14) Blood Urea Nitrogen 22 mg/dL (8-26) Creatinine 1.2 mg/dL (0.7-1.3) Estimated GFR (Cockcroft-Gault) 59.5 Glucose Level 115 mg/dL (70-99) Calcium Level 7.7 mg/dL (8.5-10.1) Phosphorus Level 3.5 mg/dL (2.6-4.7) Albumin 2.5 g/dL (3.4-5.0) Test 11/05/16 07:55 11/05/16 11:45 11/05/16 16:52 11/05/16 20:41 Glucose (Fingerstick) 126 mg/dL (70-99) 159 mg/dL (70-99) 143 mg/dL (70-99) 118 mg/dL (70-99) Test 11/06/16 03:07 11/06/16 07:33 11/06/16 08:00 Sodium Level 133 mmol/L (136-145) Potassium Level 4.8 mmol/L (3.5-5.1) Chloride Level 101 mmol/L (98-107) Carbon Dioxide Level 24 mmol/L (21-32) Anion Gap 8 (6-14) Blood Urea Nitrogen 19 mg/dL (8-26) Creatinine 1.1 mg/dL (0.7-1.3) Estimated GFR (Cockcroft-Gault) 65.8 Glucose Level 105 mg/dL (70-99) Calcium Level 8.0 mg/dL (8.5-10.1) Phosphorus Level 3.7 mg/dL (2.6-4.7) Albumin 2.4 g/dL (3.4-5.0) Glucose (Fingerstick) 110 mg/dL (70-99) Prothrombin Time 14.1 SEC (11.7-14.0) Prothromb Time International Ratio 1.2 (0.8-1.1) Laboratory Tests Test 11/05/16 11:45 11/05/16 16:52 11/05/16 20:41 11/06/16 03:07 Glucose (Fingerstick) 159 mg/dL (70-99) 143 mg/dL (70-99) 118 mg/dL (70-99) Sodium Level 133 mmol/L (136-145) Potassium Level 4.8 mmol/L (3.5-5.1) Chloride Level 101 mmol/L (98-107) Carbon Dioxide Level 24 mmol/L (21-32) Anion Gap 8 (6-14) Blood Urea Nitrogen 19 mg/dL (8-26) Creatinine 1.1 mg/dL (0.7-1.3) Estimated GFR (Cockcroft-Gault) 65.8 Glucose Level 105 mg/dL (70-99) Calcium Level 8.0 mg/dL (8.5-10.1) Phosphorus Level 3.7 mg/dL (2.6-4.7) Albumin 2.4 g/dL (3.4-5.0) Test 11/06/16 07:33 11/06/16 08:00 Glucose (Fingerstick) 110 mg/dL (70-99) Prothrombin Time 14.1 SEC (11.7-14.0) Prothromb Time International Ratio 1.2 (0.8-1.1) Medications Active Scripts Medications Dose Route/Sig Days Date Category Tamsulosin Hcl 0.4 Mg Cap.er.24h 0.4 Mg PO QHS 10/27/16 Reported Onglyza (Saxagliptin Hcl) 5 Mg Tablet 1 Tab PO DAILY 10/27/16 Reported Crestor (Rosuvastatin Calcium) 10 Mg Tablet 0.5 Tab PO DAILY 10/27/16 Reported Potassium Chloride 20 Meq Tablet.er 10 Meq PO DAILY 10/27/16 Reported Omeprazole 20 Mg Tablet.dr 1 Tab PO BID 10/27/16 Reported Nitrostat (Nitroglycerin) 0.3 Mg Tab.subl 0.3 Mg SL PRN Q5MIN PRN 10/27/16 Reported Methocarbamol 500 Mg Tablet 500 Mg PO PRN TID PRN 10/27/16 Reported Bengay Ultra Strength (Menthol) 1 Each Adh..patch 1 Each TP TID 10/27/16 Reported Lisinopril 40 Mg Tablet 1 Tab PO DAILY 10/27/16 Reported Levothyroxine Sodium 125 Mcg Tablet 1 Tab PO DAILY 10/27/16 Reported Novolog Flexpen (Insulin Aspart) 100 Unit/1 Ml Insuln.pen 11 Unit SQ TIDWMEALS 10/27/16 Reported Gabapentin 300 Mg Capsule 300 Mg PO TID 10/27/16 Reported Furosemide 40 Mg Tablet 40 Mg PO BID 10/27/16 Reported Ferrous Sulfate 324 Mg Tablet.dr 324 Mg PO BID 10/27/16 Reported Cardizem Cd (Diltiazem Hcl) 300 Mg Cap.er.24h 300 Mg PO DAILY 10/27/16 Reported Vitamin D3 (Cholecalciferol (Vitamin D3)) 1,000 Unit Tablet 1 Tab PO DAILY 10/27/16 Reported Refresh Optive Advanced Drops (Carboxymethyl/Glycerin/Poly80) 10 Ml Drops 1 Drop OP PRN QID PRN 10/27/16 Reported Alphagan P (Brimonidine Tartrate) 5 Ml Drops 1 Drop EACHEYE BID 10/27/16 Reported Aspirin 325 Mg Tablet 1 Tab PO DAILY 10/27/16 Reported Albuterol Sulfate Conc Neb Soln (Albuterol Sulfate) 2.5 Mg/0.5 Ml Vial.neb 1 Vial NEB Q4HRS 10/27/16 Reported Combivent Respimat Inhal (Ipratropium/Albuterol Sulfate) 4 Gm Aer.w.adap 1 Inh IH QID 10/27/16 Reported Comments cxr reviewed, l small effusion, atelectasis Impression . 1. Acute hypoxemic respiratory failure/AECOPD/ Acute on chronic systolic/ Diastolic HF 2. Acute on chronic kidney failure. 3. Chronic heart failure, Acute on chronic systolic/ diastolic heart failure. 4. Cardiomyopathy. (EF 25 ) 5. Status post pacemaker. 6. Coronary artery disease, status post coronary artery bypass grafting. 7. Hypertension. 8. Obstructive sleep apnea. 9. Acute on chronic blood-loss anemia. Plan . 1. BiPAP prn during day, cont at night 2. Venous Dopplers of the lower extremities, neg 3. Follow cardiology input/ cath severe cad, cm, pulm htn, dobutamine per cardiology/ high left heart filling pressures 4. No need for antibiotics. 5. Monitor hemoglobin and hematocrit. 6. monitor k tirso cath per cardiology REFUGIO SALAZAR MD November 06, 2016 10:04
--- NOTE | 2016-11-06 12:13 | PDOC ---
PROGRESS NOTES Chief Complaint Chief Complaint Acute hypoxic respir failure ASSESSMENT AND PLAN: 1. CHF exacerbation: systolic (EF 30-35%), with severe pHTN. dobutamine on O/ P basis per cardiology 2. CAD: acute angina resolved. s/p CABG in Aug 2016. s/p cath on 11/02: grafted vessels clean. 3. Dilated cardiomyopathy, ischemic: hx pacer placement 4. BELINDA on CKD3: acute portion due to CHF/ vasomotor changes. now resolved. at baseline creat 5. HTN, HLD: well controlled on home meds 6. DM2: on trajenta, well controlled 7. GI bleed, chronic: apparently had scopes at [facility] in Jul w/o significant findings 8. Anemia: iron deficiency; s/p IV iron x5. 9. Malnutrition: cardiac diet with protein high 10. Weakness and debility: 2/2 cardiac issues, malnutrition. 11. IV access: with planned long-term dobutamine infusions, requires port placement. planned for today 12. Dispo: prob home in AM, pending port and insurance approval of dobutamine History of Present Illness History of Present Illness no CP or SOB. grumpy about NPO status for port. Vitals Vitals Vital Signs Date Time Temp Pulse Resp B/P (MAP) Pulse Ox O2 Delivery O2 Flow Rate FiO2 11/06/16 11:53 95 Nasal Cannula 4.0 11/06/16 10:45 98.6 71 23 98/56 (70) 98.6 Physical Exam General: Alert, Cooperative, No acute distress Heart: Regular rate, No murmurs Lungs: Clear Abdomen: Normal bowel sounds, Soft Extremities: No clubbing, No edema Skin: No rashes Labs LABS Laboratory Tests Test 11/05/16 16:52 11/05/16 20:41 11/06/16 03:07 11/06/16 07:33 Glucose (Fingerstick) 143 mg/dL (70-99) 118 mg/dL (70-99) 110 mg/dL (70-99) Sodium Level 133 mmol/L (136-145) Potassium Level 4.8 mmol/L (3.5-5.1) Chloride Level 101 mmol/L (98-107) Carbon Dioxide Level 24 mmol/L (21-32) Anion Gap 8 (6-14) Blood Urea Nitrogen 19 mg/dL (8-26) Creatinine 1.1 mg/dL (0.7-1.3) Estimated GFR (Cockcroft-Gault) 65.8 Glucose Level 105 mg/dL (70-99) Calcium Level 8.0 mg/dL (8.5-10.1) Phosphorus Level 3.7 mg/dL (2.6-4.7) Albumin 2.4 g/dL (3.4-5.0) Test 11/06/16 08:00 11/06/16 11:38 Prothrombin Time 14.1 SEC (11.7-14.0) Prothromb Time International Ratio 1.2 (0.8-1.1) Glucose (Fingerstick) 129 mg/dL (70-99) SAUL MENDOZA MD November 06, 2016 12:13
--- NOTE | 2016-11-06 14:02 | PDOC ---
G I PROGRESS NOTE Subjective No GI complaints. To get Christopher-cath today. Objective Family member confirms no meaningful findings at colon/egd in [facility]. Physical Exam Abdomen soft, not tender nor distended. Review of Relevant I have reviewed the following items dorian (where applicable) has been applied. Labs Laboratory Tests Test 11/04/16 17:09 11/04/16 20:58 11/05/16 04:00 11/05/16 07:55 Glucose (Fingerstick) 139 mg/dL (70-99) 124 mg/dL (70-99) 126 mg/dL (70-99) White Blood Count 7.4 x10^3/uL (4.0-11.0) Red Blood Count 3.59 x10^6/uL (4.30-5.70) Hemoglobin 9.3 g/dL (13.0-17.5) Hematocrit 29.1 % (39.0-53.0) Mean Corpuscular Volume 81 fL (79-100) Mean Corpuscular Hemoglobin 26 pg (25-35) Mean Corpuscular Hemoglobin Concent 32 g/dL (31-37) Red Cell Distribution Width 19.5 % (11.5-14.5) Platelet Count 265 x10^3/uL (140-400) Neutrophils (%) (Auto) 71 % (31-73) Lymphocytes (%) (Auto) 19 % (24-48) Monocytes (%) (Auto) 9 % (0-9) Eosinophils (%) (Auto) 1 % (0-3) Basophils (%) (Auto) 1 % (0-3) Neutrophils # (Auto) 5.3 x10^3uL (1.8-7.7) Lymphocytes # (Auto) 1.4 x10^3/uL (1.0-4.8) Monocytes # (Auto) 0.6 x10^3/uL (0.0-1.1) Eosinophils # (Auto) 0.1 x10^3/uL (0.0-0.7) Basophils # (Auto) 0.0 x10^3/uL (0.0-0.2) Sodium Level 130 mmol/L (136-145) Potassium Level 4.8 mmol/L (3.5-5.1) Chloride Level 97 mmol/L (98-107) Carbon Dioxide Level 25 mmol/L (21-32) Anion Gap 8 (6-14) Blood Urea Nitrogen 22 mg/dL (8-26) Creatinine 1.2 mg/dL (0.7-1.3) Estimated GFR (Cockcroft-Gault) 59.5 Glucose Level 115 mg/dL (70-99) Calcium Level 7.7 mg/dL (8.5-10.1) Phosphorus Level 3.5 mg/dL (2.6-4.7) Albumin 2.5 g/dL (3.4-5.0) Test 11/05/16 11:45 11/05/16 16:52 11/05/16 20:41 11/06/16 03:07 Glucose (Fingerstick) 159 mg/dL (70-99) 143 mg/dL (70-99) 118 mg/dL (70-99) Sodium Level 133 mmol/L (136-145) Potassium Level 4.8 mmol/L (3.5-5.1) Chloride Level 101 mmol/L (98-107) Carbon Dioxide Level 24 mmol/L (21-32) Anion Gap 8 (6-14) Blood Urea Nitrogen 19 mg/dL (8-26) Creatinine 1.1 mg/dL (0.7-1.3) Estimated GFR (Cockcroft-Gault) 65.8 Glucose Level 105 mg/dL (70-99) Calcium Level 8.0 mg/dL (8.5-10.1) Phosphorus Level 3.7 mg/dL (2.6-4.7) Albumin 2.4 g/dL (3.4-5.0) Test 11/06/16 07:33 11/06/16 08:00 11/06/16 11:38 Glucose (Fingerstick) 110 mg/dL (70-99) 129 mg/dL (70-99) Prothrombin Time 14.1 SEC (11.7-14.0) Prothromb Time International Ratio 1.2 (0.8-1.1) Laboratory Tests Test 11/05/16 16:52 11/05/16 20:41 11/06/16 03:07 11/06/16 07:33 Glucose (Fingerstick) 143 mg/dL (70-99) 118 mg/dL (70-99) 110 mg/dL (70-99) Sodium Level 133 mmol/L (136-145) Potassium Level 4.8 mmol/L (3.5-5.1) Chloride Level 101 mmol/L (98-107) Carbon Dioxide Level 24 mmol/L (21-32) Anion Gap 8 (6-14) Blood Urea Nitrogen 19 mg/dL (8-26) Creatinine 1.1 mg/dL (0.7-1.3) Estimated GFR (Cockcroft-Gault) 65.8 Glucose Level 105 mg/dL (70-99) Calcium Level 8.0 mg/dL (8.5-10.1) Phosphorus Level 3.7 mg/dL (2.6-4.7) Albumin 2.4 g/dL (3.4-5.0) Test 11/06/16 08:00 11/06/16 11:38 Prothrombin Time 14.1 SEC (11.7-14.0) Prothromb Time International Ratio 1.2 (0.8-1.1) Glucose (Fingerstick) 129 mg/dL (70-99) Microbiology 11/03/16 Blood Culture - Preliminary, Resulted NO GROWTH AFTER 3 DAYS 10/27/16 Urine Culture - Final, Complete 10/27/16 Urine Culture Result 1 (JANEL) - Final, Complete Medications Current Medications Pantoprazole Sodium (Protonix Vial) 40 mg DAILYAC IVP Last administered on 08:32; Start 10/26/16 at 17:00; Stop 10/30/16 at 11:57; Status DC Dobutamine HCl/ Dextrose 250 ml @ 0 mls/hr CONT PRN IV SEE I/O RECORD Last administered on 10/29/16 03:02; Start 10/26/16 at 17:00; Stop 10/30/16 at 10:57 ; Status DC Furosemide (Lasix) 60 mg 1X ONCE IVP Last administered on 10/27/16 08:15; Start 10/27/16 at 08:30; Stop 10/27/16 at 08:31; Status DC Sodium Bicarbonate 50 meq Q2HR IV Last administered on 10/27/16 12:38; Start 10/27/16 at 10:00; Stop 10/27/16 at 12:01; Status DC Albuterol/ Ipratropium (Duoneb) 3 ml RTQID NEB Last administered on 11/06/16 11 :52; Start 10/27/16 at 12:00 Heparin Sodium (Porcine) (Heparin Sodium) 10,000 unit STK-MED ONCE .ROUTE ; Start 10/27/16 at 10:01; Stop 10/27/16 at 10:02; Status DC Lidocaine/Sodium Bicarbonate (Buffered Lidocaine 1%) 20 ml STK-MED ONCE IJ ; Start 10/27/16 at 10:01; Stop 10/27/16 at 10:02; Status DC Heparin Sodium/ Sodium Chloride 500 ml @ As Directed STK-MED ONCE .ROUTE ; Start 10/27/16 at 10:01; Stop 10/27/16 at 10:02; Status DC Lidocaine/Sodium Bicarbonate (Buffered Lidocaine 1%) 3 ml 1X ONCE IJ Last administered on 10/27/16 12:16; Start 10/27/16 at 10:15; Stop 10/27/16 at 10:16 ; Status DC Heparin Sodium/ Sodium Chloride 60 unit 1X ONCE IV Last administered on 12:14; Start 10/27/16 at 10:15; Stop 10/27/16 at 10:16; Status DC Heparin Sodium (Porcine) (Heparin Sodium) 2,500 unit 1X ONCE INT CAT Last administered on 10/27/16 12:16; Start 10/27/16 at 10:15; Stop 10/27/16 at 10:16 ; Status DC Aspirin (Krystian Aspirin) 325 mg DAILY PO Last administered on 11/05/16 08:24; Start 10/27/16 at 12:00 Vitamin D (Vitamin D3) 1,000 unit DAILY PO Last administered on 11/06/16 08:32 ; Start 10/27/16 at 12:00 Diltiazem HCl (Cardizem Cd) 300 mg DAILY PO Last administered on 11/06/16 08:33 ; Start 10/27/16 at 12:00 Furosemide (Lasix) 40 mg BID94 PO Last administered on 10/28/16 17:13; Start 10/27/16 at 12:00; Stop 10/29/16 at 07:12; Status DC Insulin Aspart (Novolog) 11 units TIDWMEALS SQ Last administered on 11/05/16 17 :34; Start 10/27/16 at 12:00 Levothyroxine Sodium (Synthroid) 125 mcg DAILY07 PO Last administered on 08:32; Start 10/27/16 at 12:00 Lisinopril (Prinivil) 40 mg DAILY PO Last administered on 11/06/16 08:31; Start 10/27/16 at 12:00 Methocarbamol (Robaxin) 500 mg PRN TID PRN PO MUSCLE SPASMS Last administered on 11/03/16 20:50; Start 10/27/16 at 11:15 Tamsulosin HCl (Flomax) 0.4 mg QHS PO Last administered on 11/05/16 21:29; Start 10/27/16 at 21:00 Albuterol Sulfate (Ventolin Neb Soln) 2.5 mg PRN Q4HRS PRN NEB SHORTNESS OF BREATH Last administered on 10/30/16 01:38; Start 10/27/16 at 11:30 Brimonidine Tartrate (Alphagan) 1 drop BID OU Last administered on 11/06/16 08: 34; Start 10/27/16 at 12:00 Artificial Tears (Artificial Tears) 1 drop PRN Q15MIN PRN OU DRY EYE; Start at 11:30 Ferrous Sulfate (Feosol) 325 mg BIDWMEALS PO Last administered on 11/06/16 08: 32; Start 10/27/16 at 12:00 Gabapentin (Neurontin) 300 mg BID PO Last administered on 11/06/16 08:32; Start 10/27/16 at 12:00 Non-Formulary Medication 1 inh QID IH ; Start 10/27/16 at 13:00; Status UNV Non-Formulary Medication 1 each TID TP ; Start 10/27/16 at 14:00; Status UNV Non-Formulary Medication 1 tab BID PO ; Start 10/27/16 at 21:00; Status UNV Potassium Chloride (Klor-Con) 10 meq [id number] PO Last administered on 08:32; Start 10/28/16 at 08:00 Atorvastatin Calcium (Lipitor) 20 mg QHS PO Last administered on 11/05/16 21:29 ; Start 10/27/16 at 21:00 Linagliptin (Tradjenta) 5 mg DAILY PO Last administered on 11/06/16 08:32; Start 10/27/16 at 12:00 Furosemide (Lasix) 60 mg 1X ONCE IVP ; Start 10/28/16 at 08:00; Stop 10/28/16 at 08:01; Status DC Sodium Bicarbonate 50 meq Q2HR IV Last administered on 10/29/16 10:14; Start 10/29/16 at 08:00; Stop 10/29/16 at 10:01; Status DC Sodium Bicarbonate 150 meq/Sterile Water 1,150 ml @ 80 mls/hr [id number] PRN IV . Last administered on 10/29/16 16:41; Start 10/29/16 at 07:45; Stop 10/30/16 at 12:28; Status DC Sodium Chloride 500 ml @ 30 mls/hr CONT PRN PRN IV see comments; Start at 07:45; Stop 10/30/16 at 12:28; Status DC Acetaminophen (Tylenol) 650 mg PRN Q6HRS PRN PO PAIN Last administered on 16:52; Start 10/29/16 at 11:15 Nystatin (Nystop) 1 summer TID PRN PRN TP REDNESS; Start 10/29/16 at 11:15 Multi-Ingredient Ointment (Analgesic [place]) 1 summer PRN QID PRN TP MUSCLE PAIN Last administered on 10/30/16 16:52; Start 10/29/16 at 11:15 Magnesium Sulfate/ Dextrose 50 ml @ 25 mls/hr PRN DAILY PRN IV for Mag < 1.7 on am labs; Start 10/30/16 at 09:45 Dobutamine HCl/ Dextrose 250 ml @ 0 mls/hr CONT PRN IV SEE I/O RECORD Last administered on 11/01/16 18:04; Start 10/30/16 at 11:00; Stop 11/03/16 at 11:16; Status DC Pantoprazole Sodium (Protonix) 40 mg DAILYAC PO Last administered on 11/06/16 08:32; Start 10/31/16 at 07:30 Iron Sucrose 200 mg/Sodium Chloride 110 ml @ 55 mls/hr 3X/WEEK IV Last administered on 11/06/16 09:39; Start 11/01/16 at 09:00; Stop 11/10/16 at 10:59 Sodium Chloride 500 ml @ 30 mls/hr CONT PRN PRN IV see comments Last administered on 11/01/16 03:29; Start 10/31/16 at 09:00; Stop 11/03/16 at 15:31; Status DC Acetaminophen/ Hydrocodone Bitart (Lortab 5/325) 1 tab PRN Q4HRS PRN PO PAIN Last administered on 11/05/16 19:54; Start 10/31/16 at 20:30 Furosemide (Lasix) 20 mg 1X ONCE IVP ; Start 11/01/16 at 15:45; Stop 11/01/16 at 16:05; Status DC Furosemide (Lasix) 20 mg 1X ONCE IVP Last administered on 11/01/16 21:15; Start 11/01/16 at 21:15; Stop 11/01/16 at 21:16; Status DC Magnesium Sulfate/ Dextrose 100 ml @ 100 mls/hr 1X ONCE IV Last administered on 11/02/16 09:45; Start 11/02/16 at 09:45; Stop 11/02/16 at 10:44; Status DC Sodium Acetate 75 meq/Sodium Chloride 1,037.5 ml @ 75 mls/hr [id number] IV Last administered on 11/03/16 01:24; Start 11/02/16 at 10:00; Stop 11/05/16 at 21:19; Status DC Acetylcysteine (Mucomyst 20% Oral Solution) 1,200 mg BID PO Last administered on 11/04/16 09:21; Start 11/02/16 at 09:45; Stop 11/04/16 at 09:44; Status DC Heparin Sodium/ Sodium Chloride 500 ml @ As Directed STK-MED ONCE .ROUTE ; Start 11/02/16 at 12:13; Stop 11/02/16 at 12:14; Status DC Lidocaine HCl 20 ml STK-MED ONCE .ROUTE ; Start 11/02/16 at 12:13; Stop 11/02/16 at 12:14; Status DC Iodixanol (Visipaque 320) 100 ml STK-MED ONCE .ROUTE ; Start 11/02/16 at 12:13; Stop 11/02/16 at 12:14; Status DC Midazolam HCl (Versed) 2 mg STK-MED ONCE .ROUTE ; Start 11/02/16 at 13:10; Stop 11/02/16 at 13:11; Status DC Fentanyl Citrate (Fentanyl 2ml Vial) 100 mcg STK-MED ONCE .ROUTE ; Start at 13:10; Stop 11/02/16 at 13:11; Status DC Lidocaine HCl 20 ml 1X ONCE IJ Last administered on 11/02/16 13:51; Start 11/02 at 13:30; Stop 11/02/16 at 13:32; Status DC Heparin Sodium/ Sodium Chloride 1,000 unit 1X ONCE IV Last administered on 11/02 13:51; Start 11/02/16 at 13:30; Stop 11/02/16 at 13:32; Status DC Fentanyl Citrate (Fentanyl 2ml Vial) 25 mcg 1X ONCE IV Last administered on 13:52; Start 11/02/16 at 13:30; Stop 11/02/16 at 13:32; Status DC Midazolam HCl (Versed) 1 mg 1X ONCE IV Last administered on 11/02/16 13:52; Start 11/02/16 at 13:30; Stop 11/02/16 at 13:32; Status DC Iodixanol (Visipaque 320) 100 ml 1X ONCE IART Last administered on 11/02/16 13 :52; Start 11/02/16 at 13:30; Stop 11/02/16 at 13:32; Status DC Info (Do NOT chart on this entry -- for MONITORING) 1 each PRN DAILY PRN MC SEE COMMENTS; Start 11/02/16 at 13:45; Stop 11/04/16 at 13:44; Status DC Iodixanol (Visipaque 320) 100 ml STK-MED ONCE .ROUTE ; Start 11/02/16 at 13:35; Stop 11/02/16 at 13:36; Status DC Magnesium Sulfate/ Dextrose 50 ml @ 25 mls/hr 1X ONCE IV Last administered on 11/03/16 11:12; Start 11/03/16 at 11:00; Stop 11/03/16 at 12:59; Status DC Sodium Chloride 500 ml @ 500 mls/hr 1X ONCE IV ; Start 11/03/16 at 10:45; Stop 11/03/16 at 11:44; Status DC Albumin Human 500 ml @ 125 mls/hr 1X ONCE IV Last administered on 11/03/16 12 :23; Start 11/03/16 at 11:15; Stop 11/03/16 at 15:14; Status DC Guaifenesin (Mucinex) 600 mg BID PO Last administered on 11/06/16 08:31; Start 11/05/16 at 21:00 Promethazine HCl/ Codeine (Phenergan With Codeine) 5 ml PRN Q6HRS PRN PO COUGH Last administered on 11/06/16 08:33; Start 11/05/16 at 22:30 Active Scripts Active Reported Tamsulosin Hcl 0.4 Mg Cap.er.24h 0.4 Mg PO QHS Onglyza (Saxagliptin Hcl) 5 Mg Tablet 1 Tab PO DAILY Crestor (Rosuvastatin Calcium) 10 Mg Tablet 0.5 Tab PO DAILY Potassium Chloride 20 Meq Tablet.er 10 Meq PO DAILY Omeprazole 20 Mg Tablet.dr 1 Tab PO BID Nitrostat (Nitroglycerin) 0.3 Mg Tab.subl 0.3 Mg SL PRN Q5MIN PRN Methocarbamol 500 Mg Tablet 500 Mg PO PRN TID PRN Bengay Ultra Strength (Menthol) 1 Each Adh..patch 1 Each TP TID Lisinopril 40 Mg Tablet 1 Tab PO DAILY Levothyroxine Sodium 125 Mcg Tablet 1 Tab PO DAILY Novolog Flexpen (Insulin Aspart) 100 Unit/1 Ml Insuln.pen 11 Unit SQ TIDWMEALS Gabapentin 300 Mg Capsule 300 Mg PO TID Furosemide 40 Mg Tablet 40 Mg PO BID Ferrous Sulfate 324 Mg Tablet.dr 324 Mg PO BID Cardizem Cd (Diltiazem Hcl) 300 Mg Cap.er.24h 300 Mg PO DAILY Vitamin D3 (Cholecalciferol (Vitamin D3)) 1,000 Unit Tablet 1 Tab PO DAILY Refresh Optive Advanced Drops (Carboxymethyl/Glycerin/Poly80) 10 Ml Drops 1 Drop OP PRN QID PRN Alphagan P (Brimonidine Tartrate) 5 Ml Drops 1 Drop EACHEYE BID Aspirin 325 Mg Tablet 1 Tab PO DAILY Albuterol Sulfate Conc Neb Soln (Albuterol Sulfate) 2.5 Mg/0.5 Ml Vial.neb 1 Vial NEB Q4HRS Combivent Respimat Inhal (Ipratropium/Albuterol Sulfate) 4 Gm Aer.w.adap 1 Inh IH QID Vitals/I & O Vital Sign - Last 24 Hours 11/05/16 11/05/16 11/05/16 11/05/16 14:49 16:00 19:54 19:54 Temp 98.1 98.5 98.1 98.5 Pulse 82 63 Resp 22 22 22 B/P (MAP) 100/65 (77) 104/35 (58) Pulse Ox 95 91 O2 Delivery Nasal Cannula Nasal Cannula Nasal Cannula Nasal Cannula O2 Flow Rate 4.0 4.0 11/05/16 11/05/16 11/05/16 11/05/16 19:58 20:00 20:54 22:30 Resp 22 O2 Delivery Nasal Cannula Nasal Cannula Nasal Cannula O2 Flow Rate 4.0 4.0 4.0 4.0 11/05/16 11/05/16 11/06/16 11/06/16 23:01 23:38 01:47 03:13 Temp 97.9 97.5 97.9 97.5 Pulse 62 67 Resp 22 21 B/P (MAP) 97/52 (67) 118/68 (85) Pulse Ox 92 93 O2 Delivery Nasal Cannula BiPAP/CPAP BiPAP/CPAP BiPAP/CPAP O2 Flow Rate 40.0 11/06/16 11/06/16 11/06/16 11/06/16 03:33 07:55 08:05 08:05 Temp 97.5 97.5 Pulse 64 Resp 17 B/P (MAP) 102/63 (76) Pulse Ox 95 O2 Delivery BiPAP/CPAP Nasal Cannula Nasal Cannula O2 Flow Rate 4.0 40.0 11/06/16 11/06/16 11/06/16 11/06/16 08:14 08:31 08:33 10:45 Temp 98.6 98.6 Pulse 64 64 71 Resp 23 B/P (MAP) 102/63 102/63 98/56 (70) Pulse Ox 95 94 O2 Delivery Nasal Cannula Nasal Cannula O2 Flow Rate 4.0 11/06/16 11:53 Pulse Ox 95 O2 Delivery Nasal Cannula O2 Flow Rate 4.0 Intake and Output 11/05/16 11/05/16 11/06/16 15:00 23:00 07:00 Intake Total 120 ml Output Total 250 ml 200 ml 750 ml Balance -130 ml -200 ml -750 ml Problem List Problems Medical Problems: (1) CHF exacerbation Status: Acute Assessment Stable GI-ghosh. Plan of Care: Continue current Tx, Mgmt NIKKI GREENE MD November 06, 2016 14:02
[2016-11-06] MEDS ORDERED: LIDOCAINE 1%/EPI 1:100,000 20 ML VIAL. ONE (15:59)
[2016-11-06] MEDS ORDERED: HEPARIN PF 500 UNIT/5 ML DISP.SYRIN. IV ONE ×2 (15:59→16:45)
[2016-11-06] MEDS ORDERED: VANCOMYCIN 1GM IVPB FOR OMNI 250 ML ONE (15:59)
[2016-11-06] MEDS ORDERED: fentaNYL PF VIAL 250 MCG/5 ML VIAL ONE (16:27)
[2016-11-06] MEDS ORDERED: MIDAZOLAM HCL/PF 5 MG/5 ML VIAL. ONE (16:27)
[2016-11-06] MEDS ORDERED: fentaNYL PF VIAL 250 MCG/5 ML VIAL IV ONE (16:45)
[2016-11-06] MEDS ORDERED: MIDAZOLAM HCL/PF 5 MG/5 ML VIAL. IV ONE (16:45)
[2016-11-06] MEDS ORDERED: LIDOCAINE 1%/EPI 1:100,000 20 ML VIAL. IJ ONE (16:45)
[2016-11-06] MEDS ORDERED: VANCOMYCIN 1GM IVPB FOR OMNI 250 ML IRR ONE (16:45)
--- NOTE | 2016-11-06 17:21 | PDOC ---
MODERATE SEDATION ASSESSMENT RISKS/ALTERNATIVES Risks/Alternatives Risks and alternatives of this type of sedation and procedure discussed with: RISK/ALTERNATIVES: Patient H & P ON CHART H & P H & P on chart and reviewed for co-morbid conditions and appropriate labs. H&P ON CHART: Yes STATUS PREG STATUS ASSESSED: N/A MEDS/ALLERGIES REVIEWED Meds/Allergies Reviewed Medications and Allergies including time and route of recently administered narcotics and sedatives. MEDS/ALLERGIES REVIEWED: Yes ASA RATING ASA RATING: III AIRWAY ASSESSMENT Airway Assessment Airway patency, oral function limitations, presence of caps, crowns, dentures, partials, and ability to extend neck assessed. AIRWAY ASSESSMENT: Yes MALLAMPATI SCORE MALLAMPATI SCORE: III PRE-SEDATION ASSESSMENT PRE-SEDATION ASSESSMENT: Yes LIANE KENNY MD November 06, 2016 17:21
--- NOTE | 2016-11-06 17:24 | PDOC ---
Exam Channel Cementer Channel Cementer Leida Supervisor/Port Director Supervisor/Port Director Mya Mar Pre-Procedure Diagnosis Pre-Procedure Diagnosis 71 YO male with CHF and cardiomyopathy---frequent dobutamine infusions recommended by cardiology Post-Procedure Diagnosis Post-Procedure Diagnosis Same Procedure Performed Procedure Performed Sono/fluoro guided left IJ tunneled Power Port insertion Type of Anesthesia Type of Anesthesia Local + Mod sedation Estimated Blood Loss EBL: Minimal Drain/Tubes Drains/Tubes Left IJ 8F tunneled Power Port Condition of Patient Condition of Patient Stable. No apparent complication. Disposition Disposition From IR return to [facility] [place]. OK to use Power Port. Full report to follow. LIANE KENNY MD November 06, 2016 17:24
[2016-11-06] MEDS: HYDROcodone/APAP 5/325MG 1 TAB TABLET PO PRN ×2 (18:20→23:02)
--- NOTE | 2016-11-06 19:04 | PDOC ---
PROGRESS NOTES Subjective Subjective The patient had the port insertion done today. He tolerated the procedure well. Objective Objective Vital Signs Date Time Temp Pulse Resp B/P (MAP) Pulse Ox O2 Delivery O2 Flow Rate FiO2 11/06/16 18:20 14 95 Nasal Cannula 4.0 11/06/16 17:19 70 11/06/16 16:00 11/06/16 14:55 97.6 97.6 Intake and Output 11/06/16 07:00 Intake Total 120 ml Output Total 1200 ml Balance -1080 ml Intake Oral 120 ml Output Urine Total 1200 ml Physical Exam Physical Exam No significant changes in cardiac exam Assessment Assessment Problems Patient seems to be compensated at this time. He will have a dobutamine infusion done in the morning and may be discharged after that. Medical Problems: (1) CHF exacerbation Status: Acute Comment Review of Relevant I have reviewed the following items dorian (where applicable) has been applied. Labs Laboratory Tests Test 11/04/16 20:58 11/05/16 04:00 11/05/16 07:55 11/05/16 11:45 Glucose (Fingerstick) 124 mg/dL (70-99) 126 mg/dL (70-99) 159 mg/dL (70-99) White Blood Count 7.4 x10^3/uL (4.0-11.0) Red Blood Count 3.59 x10^6/uL (4.30-5.70) Hemoglobin 9.3 g/dL (13.0-17.5) Hematocrit 29.1 % (39.0-53.0) Mean Corpuscular Volume 81 fL (79-100) Mean Corpuscular Hemoglobin 26 pg (25-35) Mean Corpuscular Hemoglobin Concent 32 g/dL (31-37) Red Cell Distribution Width 19.5 % (11.5-14.5) Platelet Count 265 x10^3/uL (140-400) Neutrophils (%) (Auto) 71 % (31-73) Lymphocytes (%) (Auto) 19 % (24-48) Monocytes (%) (Auto) 9 % (0-9) Eosinophils (%) (Auto) 1 % (0-3) Basophils (%) (Auto) 1 % (0-3) Neutrophils # (Auto) 5.3 x10^3uL (1.8-7.7) Lymphocytes # (Auto) 1.4 x10^3/uL (1.0-4.8) Monocytes # (Auto) 0.6 x10^3/uL (0.0-1.1) Eosinophils # (Auto) 0.1 x10^3/uL (0.0-0.7) Basophils # (Auto) 0.0 x10^3/uL (0.0-0.2) Sodium Level 130 mmol/L (136-145) Potassium Level 4.8 mmol/L (3.5-5.1) Chloride Level 97 mmol/L (98-107) Carbon Dioxide Level 25 mmol/L (21-32) Anion Gap 8 (6-14) Blood Urea Nitrogen 22 mg/dL (8-26) Creatinine 1.2 mg/dL (0.7-1.3) Estimated GFR (Cockcroft-Gault) 59.5 Glucose Level 115 mg/dL (70-99) Calcium Level 7.7 mg/dL (8.5-10.1) Phosphorus Level 3.5 mg/dL (2.6-4.7) Albumin 2.5 g/dL (3.4-5.0) Test 11/05/16 16:52 11/05/16 20:41 11/06/16 03:07 11/06/16 07:33 Glucose (Fingerstick) 143 mg/dL (70-99) 118 mg/dL (70-99) 110 mg/dL (70-99) Sodium Level 133 mmol/L (136-145) Potassium Level 4.8 mmol/L (3.5-5.1) Chloride Level 101 mmol/L (98-107) Carbon Dioxide Level 24 mmol/L (21-32) Anion Gap 8 (6-14) Blood Urea Nitrogen 19 mg/dL (8-26) Creatinine 1.1 mg/dL (0.7-1.3) Estimated GFR (Cockcroft-Gault) 65.8 Glucose Level 105 mg/dL (70-99) Calcium Level 8.0 mg/dL (8.5-10.1) Phosphorus Level 3.7 mg/dL (2.6-4.7) Albumin 2.4 g/dL (3.4-5.0) Test 11/06/16 08:00 11/06/16 11:38 11/06/16 18:06 Prothrombin Time 14.1 SEC (11.7-14.0) Prothromb Time International Ratio 1.2 (0.8-1.1) Glucose (Fingerstick) 129 mg/dL (70-99) 145 mg/dL (70-99) Laboratory Tests Test 11/05/16 20:41 11/06/16 03:07 11/06/16 07:33 11/06/16 08:00 Glucose (Fingerstick) 118 mg/dL (70-99) 110 mg/dL (70-99) Sodium Level 133 mmol/L (136-145) Potassium Level 4.8 mmol/L (3.5-5.1) Chloride Level 101 mmol/L (98-107) Carbon Dioxide Level 24 mmol/L (21-32) Anion Gap 8 (6-14) Blood Urea Nitrogen 19 mg/dL (8-26) Creatinine 1.1 mg/dL (0.7-1.3) Estimated GFR (Cockcroft-Gault) 65.8 Glucose Level 105 mg/dL (70-99) Calcium Level 8.0 mg/dL (8.5-10.1) Phosphorus Level 3.7 mg/dL (2.6-4.7) Albumin 2.4 g/dL (3.4-5.0) Prothrombin Time 14.1 SEC (11.7-14.0) Prothromb Time International Ratio 1.2 (0.8-1.1) Test 11/06/16 11:38 11/06/16 18:06 Glucose (Fingerstick) 129 mg/dL (70-99) 145 mg/dL (70-99) Microbiology 11/03/16 Blood Culture - Preliminary, Resulted NO GROWTH AFTER 3 DAYS 10/27/16 Urine Culture - Final, Complete 10/27/16 Urine Culture Result 1 (JANEL) - Final, Complete Medications Current Medications Pantoprazole Sodium (Protonix Vial) 40 mg DAILYAC IVP Last administered on 08:32; Start 10/26/16 at 17:00; Stop 10/30/16 at 11:57; Status DC Dobutamine HCl/ Dextrose 250 ml @ 0 mls/hr CONT PRN IV SEE I/O RECORD Last administered on 10/29/16 03:02; Start 10/26/16 at 17:00; Stop 10/30/16 at 10:57 ; Status DC Furosemide (Lasix) 60 mg 1X ONCE IVP Last administered on 10/27/16 08:15; Start 10/27/16 at 08:30; Stop 10/27/16 at 08:31; Status DC Sodium Bicarbonate 50 meq Q2HR IV Last administered on 10/27/16 12:38; Start 10/27/16 at 10:00; Stop 10/27/16 at 12:01; Status DC Albuterol/ Ipratropium (Duoneb) 3 ml RTQID NEB Last administered on 11/06/16 15 :51; Start 10/27/16 at 12:00 Heparin Sodium (Porcine) (Heparin Sodium) 10,000 unit STK-MED ONCE .ROUTE ; Start 10/27/16 at 10:01; Stop 10/27/16 at 10:02; Status DC Lidocaine/Sodium Bicarbonate (Buffered Lidocaine 1%) 20 ml STK-MED ONCE IJ ; Start 10/27/16 at 10:01; Stop 10/27/16 at 10:02; Status DC Heparin Sodium/ Sodium Chloride 500 ml @ As Directed STK-MED ONCE .ROUTE ; Start 10/27/16 at 10:01; Stop 10/27/16 at 10:02; Status DC Lidocaine/Sodium Bicarbonate (Buffered Lidocaine 1%) 3 ml 1X ONCE IJ Last administered on 10/27/16 12:16; Start 10/27/16 at 10:15; Stop 10/27/16 at 10:16 ; Status DC Heparin Sodium/ Sodium Chloride 60 unit 1X ONCE IV Last administered on 12:14; Start 10/27/16 at 10:15; Stop 10/27/16 at 10:16; Status DC Heparin Sodium (Porcine) (Heparin Sodium) 2,500 unit 1X ONCE INT CAT Last administered on 10/27/16 12:16; Start 10/27/16 at 10:15; Stop 10/27/16 at 10:16 ; Status DC Aspirin (Krystian Aspirin) 325 mg DAILY PO Last administered on 11/05/16 08:24; Start 10/27/16 at 12:00 Vitamin D (Vitamin D3) 1,000 unit DAILY PO Last administered on 11/06/16 08:32 ; Start 10/27/16 at 12:00 Diltiazem HCl (Cardizem Cd) 300 mg DAILY PO Last administered on 11/06/16 08:33 ; Start 10/27/16 at 12:00 Furosemide (Lasix) 40 mg BID94 PO Last administered on 10/28/16 17:13; Start 10/27/16 at 12:00; Stop 10/29/16 at 07:12; Status DC Insulin Aspart (Novolog) 11 units TIDWMEALS SQ Last administered on 11/06/16 18 :19; Start 10/27/16 at 12:00 Levothyroxine Sodium (Synthroid) 125 mcg DAILY07 PO Last administered on 08:32; Start 10/27/16 at 12:00 Lisinopril (Prinivil) 40 mg DAILY PO Last administered on 11/06/16 08:31; Start 10/27/16 at 12:00 Methocarbamol (Robaxin) 500 mg PRN TID PRN PO MUSCLE SPASMS Last administered on 11/03/16 20:50; Start 10/27/16 at 11:15 Tamsulosin HCl (Flomax) 0.4 mg QHS PO Last administered on 11/05/16 21:29; Start 10/27/16 at 21:00 Albuterol Sulfate (Ventolin Neb Soln) 2.5 mg PRN Q4HRS PRN NEB SHORTNESS OF BREATH Last administered on 10/30/16 01:38; Start 10/27/16 at 11:30 Brimonidine Tartrate (Alphagan) 1 drop BID OU Last administered on 11/06/16 08: 34; Start 10/27/16 at 12:00 Artificial Tears (Artificial Tears) 1 drop PRN Q15MIN PRN OU DRY EYE; Start at 11:30 Ferrous Sulfate (Feosol) 325 mg BIDWMEALS PO Last administered on 11/06/16 18: 14; Start 10/27/16 at 12:00 Gabapentin (Neurontin) 300 mg BID PO Last administered on 11/06/16 08:32; Start 10/27/16 at 12:00 Non-Formulary Medication 1 inh QID IH ; Start 10/27/16 at 13:00; Status UNV Non-Formulary Medication 1 each TID TP ; Start 10/27/16 at 14:00; Status UNV Non-Formulary Medication 1 tab BID PO ; Start 10/27/16 at 21:00; Status UNV Potassium Chloride (Klor-Con) 10 meq [id number] PO Last administered on 08:32; Start 10/28/16 at 08:00 Atorvastatin Calcium (Lipitor) 20 mg QHS PO Last administered on 11/05/16 21:29 ; Start 10/27/16 at 21:00 Linagliptin (Tradjenta) 5 mg DAILY PO Last administered on 11/06/16 08:32; Start 10/27/16 at 12:00 Furosemide (Lasix) 60 mg 1X ONCE IVP ; Start 10/28/16 at 08:00; Stop 10/28/16 at 08:01; Status DC Sodium Bicarbonate 50 meq Q2HR IV Last administered on 10/29/16 10:14; Start 10/29/16 at 08:00; Stop 10/29/16 at 10:01; Status DC Sodium Bicarbonate 150 meq/Sterile Water 1,150 ml @ 80 mls/hr [id number] PRN IV . Last administered on 10/29/16 16:41; Start 10/29/16 at 07:45; Stop 10/30/16 at 12:28; Status DC Sodium Chloride 500 ml @ 30 mls/hr CONT PRN PRN IV see comments; Start at 07:45; Stop 10/30/16 at 12:28; Status DC Acetaminophen (Tylenol) 650 mg PRN Q6HRS PRN PO PAIN Last administered on 16:52; Start 10/29/16 at 11:15 Nystatin (Nystop) 1 summer TID PRN PRN TP REDNESS; Start 10/29/16 at 11:15 Multi-Ingredient Ointment (Analgesic [place]) 1 summer PRN QID PRN TP MUSCLE PAIN Last administered on 10/30/16 16:52; Start 10/29/16 at 11:15 Magnesium Sulfate/ Dextrose 50 ml @ 25 mls/hr PRN DAILY PRN IV for Mag < 1.7 on am labs; Start 10/30/16 at 09:45 Dobutamine HCl/ Dextrose 250 ml @ 0 mls/hr CONT PRN IV SEE I/O RECORD Last administered on 11/01/16 18:04; Start 10/30/16 at 11:00; Stop 11/03/16 at 11:16; Status DC Pantoprazole Sodium (Protonix) 40 mg DAILYAC PO Last administered on 11/06/16 08:32; Start 10/31/16 at 07:30 Iron Sucrose 200 mg/Sodium Chloride 110 ml @ 55 mls/hr 3X/WEEK IV Last administered on 11/06/16 09:39; Start 11/01/16 at 09:00; Stop 11/10/16 at 10:59 Sodium Chloride 500 ml @ 30 mls/hr CONT PRN PRN IV see comments Last administered on 11/01/16 03:29; Start 10/31/16 at 09:00; Stop 11/03/16 at 15:31; Status DC Acetaminophen/ Hydrocodone Bitart (Lortab 5/325) 1 tab PRN Q4HRS PRN PO PAIN Last administered on 11/06/16 18:20; Start 10/31/16 at 20:30 Furosemide (Lasix) 20 mg 1X ONCE IVP ; Start 11/01/16 at 15:45; Stop 11/01/16 at 16:05; Status DC Furosemide (Lasix) 20 mg 1X ONCE IVP Last administered on 11/01/16 21:15; Start 11/01/16 at 21:15; Stop 11/01/16 at 21:16; Status DC Magnesium Sulfate/ Dextrose 100 ml @ 100 mls/hr 1X ONCE IV Last administered on 11/02/16 09:45; Start 11/02/16 at 09:45; Stop 11/02/16 at 10:44; Status DC Sodium Acetate 75 meq/Sodium Chloride 1,037.5 ml @ 75 mls/hr [id number] IV Last administered on 11/03/16 01:24; Start 11/02/16 at 10:00; Stop 11/05/16 at 21:19; Status DC Acetylcysteine (Mucomyst 20% Oral Solution) 1,200 mg BID PO Last administered on 11/04/16 09:21; Start 11/02/16 at 09:45; Stop 11/04/16 at 09:44; Status DC Heparin Sodium/ Sodium Chloride 500 ml @ As Directed STK-MED ONCE .ROUTE ; Start 11/02/16 at 12:13; Stop 11/02/16 at 12:14; Status DC Lidocaine HCl 20 ml STK-MED ONCE .ROUTE ; Start 11/02/16 at 12:13; Stop 11/02/16 at 12:14; Status DC Iodixanol (Visipaque 320) 100 ml STK-MED ONCE .ROUTE ; Start 11/02/16 at 12:13; Stop 11/02/16 at 12:14; Status DC Midazolam HCl (Versed) 2 mg STK-MED ONCE .ROUTE ; Start 11/02/16 at 13:10; Stop 11/02/16 at 13:11; Status DC Fentanyl Citrate (Fentanyl 2ml Vial) 100 mcg STK-MED ONCE .ROUTE ; Start at 13:10; Stop 11/02/16 at 13:11; Status DC Lidocaine HCl 20 ml 1X ONCE IJ Last administered on 11/02/16 13:51; Start 11/02 at 13:30; Stop 11/02/16 at 13:32; Status DC Heparin Sodium/ Sodium Chloride 1,000 unit 1X ONCE IV Last administered on 11/02 13:51; Start 11/02/16 at 13:30; Stop 11/02/16 at 13:32; Status DC Fentanyl Citrate (Fentanyl 2ml Vial) 25 mcg 1X ONCE IV Last administered on 13:52; Start 11/02/16 at 13:30; Stop 11/02/16 at 13:32; Status DC Midazolam HCl (Versed) 1 mg 1X ONCE IV Last administered on 11/02/16 13:52; Start 11/02/16 at 13:30; Stop 11/02/16 at 13:32; Status DC Iodixanol (Visipaque 320) 100 ml 1X ONCE IART Last administered on 11/02/16 13 :52; Start 11/02/16 at 13:30; Stop 11/02/16 at 13:32; Status DC Info (Do NOT chart on this entry -- for MONITORING) 1 each PRN DAILY PRN MC SEE COMMENTS; Start 11/02/16 at 13:45; Stop 11/04/16 at 13:44; Status DC Iodixanol (Visipaque 320) 100 ml STK-MED ONCE .ROUTE ; Start 11/02/16 at 13:35; Stop 11/02/16 at 13:36; Status DC Magnesium Sulfate/ Dextrose 50 ml @ 25 mls/hr 1X ONCE IV Last administered on 11/03/16 11:12; Start 11/03/16 at 11:00; Stop 11/03/16 at 12:59; Status DC Sodium Chloride 500 ml @ 500 mls/hr 1X ONCE IV ; Start 11/03/16 at 10:45; Stop 11/03/16 at 11:44; Status DC Albumin Human 500 ml @ 125 mls/hr 1X ONCE IV Last administered on 11/03/16 12 :23; Start 11/03/16 at 11:15; Stop 11/03/16 at 15:14; Status DC Guaifenesin (Mucinex) 600 mg BID PO Last administered on 11/06/16 08:31; Start 11/05/16 at 21:00 Promethazine HCl/ Codeine (Phenergan With Codeine) 5 ml PRN Q6HRS PRN PO COUGH Last administered on 11/06/16 18:20; Start 11/05/16 at 22:30 Heparin Sodium (Porcine) (Hep Lock Adult) 500 unit STK-MED ONCE IV ; Start at 15:59; Stop 11/06/16 at 16:00; Status DC Lidocaine/ Epinephrine (Xylocaine 1%-Epi 1:100,000) 20 ml STK-MED ONCE .ROUTE ; Start 11/06/16 at 15:59; Stop 11/06/16 at 16:00; Status DC Heparin Sodium/ Sodium Chloride 500 ml @ As Directed STK-MED ONCE .ROUTE ; Start 11/06/16 at 15:59; Stop 11/06/16 at 16:00; Status DC Vancomycin HCl 250 ml @ As Directed STK-MED ONCE .ROUTE ; Start 11/06/16 at 15: 59; Stop 11/06/16 at 16:00; Status DC Midazolam HCl (Versed) 5 mg STK-MED ONCE .ROUTE ; Start 11/06/16 at 16:27; Stop 11/06/16 at 16:28; Status DC Fentanyl Citrate (Fentanyl 5ml Vial) 250 mcg STK-MED ONCE .ROUTE ; Start at 16:27; Stop 11/06/16 at 16:28; Status DC Cefazolin Sodium 50 ml @ As Directed STK-MED ONCE IV ; Start 11/06/16 at 16:27; Stop 11/06/16 at 16:28; Status DC Heparin Sodium/ Sodium Chloride 1,000 unit 1X ONCE IART Last administered on 16:45; Start 11/06/16 at 16:45; Stop 11/06/16 at 16:50; Status DC Midazolam HCl (Versed) 2 mg 1X ONCE IV Last administered on 11/06/16 17:11; Start 11/06/16 at 16:45; Stop 11/06/16 at 16:50; Status DC Fentanyl Citrate (Fentanyl 5ml Vial) 100 mcg 1X ONCE IV Last administered on 17:11; Start 11/06/16 at 16:45; Stop 11/06/16 at 16:50; Status DC Lidocaine/ Epinephrine (Xylocaine 1%-Epi 1:100,000) 20 ml 1X ONCE IJ Last administered on 11/06/16 16:45; Start 11/06/16 at 16:45; Stop 11/06/16 at 16:50; Status DC Cefazolin Sodium 50 ml @ 100 mls/hr 1X ONCE IV Last administered on 11/06/16 17:10; Start 11/06/16 at 16:45; Stop 11/06/16 at 17:14; Status DC Vancomycin HCl 250 ml @ 250 mls/hr 1X ONCE IRR Last administered on 11/06/16 17:10; Start 11/06/16 at 16:45; Stop 11/06/16 at 17:44; Status DC Heparin Sodium (Porcine) (Hep Lock Adult) 500 unit 1X ONCE IV Last administered on 11/06/16 17:12; Start 11/06/16 at 16:45; Stop 11/06/16 at 16:50; Status DC Active Scripts Active Reported Tamsulosin Hcl 0.4 Mg Cap.er.24h 0.4 Mg PO QHS Onglyza (Saxagliptin Hcl) 5 Mg Tablet 1 Tab PO DAILY Crestor (Rosuvastatin Calcium) 10 Mg Tablet 0.5 Tab PO DAILY Potassium Chloride 20 Meq Tablet.er 10 Meq PO DAILY Omeprazole 20 Mg Tablet.dr 1 Tab PO BID Nitrostat (Nitroglycerin) 0.3 Mg Tab.subl 0.3 Mg SL PRN Q5MIN PRN Methocarbamol 500 Mg Tablet 500 Mg PO PRN TID PRN [place] Ultra Strength (Menthol) 1 Each Adh..patch 1 Each TP TID Lisinopril 40 Mg Tablet 1 Tab PO DAILY Levothyroxine Sodium 125 Mcg Tablet 1 Tab PO DAILY Novolog Flexpen (Insulin Aspart) 100 Unit/1 Ml Insuln.pen 11 Unit SQ TIDWMEALS Gabapentin 300 Mg Capsule 300 Mg PO TID Furosemide 40 Mg Tablet 40 Mg PO BID Ferrous Sulfate 324 Mg Tablet.dr 324 Mg PO BID Cardizem Cd (Diltiazem Hcl) 300 Mg Cap.er.24h 300 Mg PO DAILY Vitamin D3 (Cholecalciferol (Vitamin D3)) 1,000 Unit Tablet 1 Tab PO DAILY Refresh Optive Advanced Drops (Carboxymethyl/Glycerin/Poly80) 10 Ml Drops 1 Drop OP PRN QID PRN Alphagan P (Brimonidine Tartrate) 5 Ml Drops 1 Drop EACHEYE BID Aspirin 325 Mg Tablet 1 Tab PO DAILY Albuterol Sulfate Conc Neb Soln (Albuterol Sulfate) 2.5 Mg/0.5 Ml Vial.neb 1 Vial NEB Q4HRS Combivent Respimat Inhal (Ipratropium/Albuterol Sulfate) 4 Gm Aer.w.adap 1 Inh IH QID Vitals/I & O Vital Sign - Last 24 Hours 11/05/16 11/05/16 11/05/16 11/05/16 19:54 19:54 19:58 20:00 Temp 98.5 98.5 Pulse 63 Resp B/P (MAP) 104/35 (58) Pulse Ox 91 O2 Delivery Nasal Cannula Nasal Cannula Nasal Cannula Nasal Cannula O2 Flow Rate 4.0 4.0 4.0 11/05/16 11/05/16 11/05/16 11/05/16 20:54 22:30 23:01 23:38 Temp 97.9 97.9 Pulse 62 Resp B/P (MAP) 97/52 (67) Pulse Ox 92 O2 Delivery Nasal Cannula Nasal Cannula BiPAP/CPAP O2 Flow Rate 4.0 4.0 11/06/16 11/06/16 11/06/16 11/06/16 01:47 03:13 03:33 07:55 Temp 97.5 97.5 97.5 97.5 Pulse 67 64 Resp 21 17 B/P (MAP) 118/68 (85) 102/63 (76) Pulse Ox 93 95 O2 Delivery BiPAP/CPAP BiPAP/CPAP BiPAP/CPAP Nasal Cannula O2 Flow Rate 40.0 11/06/16 11/06/16 11/06/16 11/06/16 08:05 08:05 08:14 08:31 Pulse 64 B/P (MAP) 102/63 Pulse Ox 95 O2 Delivery Nasal Cannula Nasal Cannula O2 Flow Rate 4.0 40.0 4.0 11/06/16 11/06/16 11/06/16 11/06/16 08:33 10:45 11:53 14:55 Temp 98.6 97.6 98.6 97.6 Pulse 64 71 63 Resp 23 20 B/P (MAP) 102/63 98/56 (70) 99/48 (65) Pulse Ox 94 95 91 O2 Delivery Nasal Cannula Nasal Cannula Nasal Cannula O2 Flow Rate 4.0 11/06/16 11/06/16 11/06/16 11/06/16 15:52 16:00 17:11 17:19 Pulse 70 Resp 14 14 B/P (MAP) Pulse Ox 95 94 95 O2 Delivery Nasal Cannula Nasal Cannula Nasal Cannula O2 Flow Rate 4.0 6.0 6.0 11/06/16 11/06/16 17:40 18:20 Resp 14 14 Pulse Ox 95 95 O2 Delivery Nasal Cannula Nasal Cannula O2 Flow Rate 4.0 4.0 Intake and Output 11/05/16 11/05/16 11/06/16 15:00 23:00 07:00 Intake Total 120 ml Output Total 250 ml 200 ml 750 ml Balance -130 ml -200 ml -750 ml WENDIE ANGEL MD November 06, 2016 19:04
[2016-11-06] MEDS: ATORVASTATIN CALCIUM 20 MG TABLET PO SCH (20:56)
[2016-11-06] MEDS: TAMSULOSIN 0.4 MG CAP.ER.24H. PO SCH (20:56)
[2016-11-07 03:17] VITALS: BP 90/54
--- NOTE | 2016-11-07 06:14 | RAD ---
Ultrasound and fluoroscopy guided left IJ power port insertion Indication: 71-year-old male with cardiomyopathy and congestive heart failure. Power port insertion has been requested by cardiology for frequent dobutamine infusions. Fluoroscopy time: 1.5 minutes Kerma-area product: 5 Gycm2 Moderate sedation: 50 minutes moderate sedation was provided utilizing a total of 2.5 mg Versed and 125 mcg fentanyl, IV. The patient was appropriately monitored by a qualified independent observer throughout the course of moderate sedation. Antibiotic: A single dose of Ancef was administered within 1 hour of the procedure start time. Consent: The procedure was explained in its entirety to the patient and/or the patient's designated patient financial representative by a member of the treatment team. This included a discussion of risks and benefits and commonly accepted alternatives to the procedure, as well as expected consequences of no treatment at all. Discussion of risks included, but was not limited to, those that are most frequent and those that are rare, but possibly severe or life-threatening, as well as the possibility of unforeseen complications. Sterility: All elements of maximal sterile barrier technique, including the use of a cap, mask, sterile gown, sterile gloves, large sterile sheet, appropriate hand hygiene, and 2% chlorhexidine for cutaneous antisepsis (or acceptable alternative antiseptic per current guidelines) were utilized. Procedure: Informed consent was obtained from the patient. He was placed supine on the angiography table. Preliminary ultrasound examination of left neck revealed wide patency of left internal jugular vein, which was documented with a single hard copy ultrasound image. Left neck and upper chest were then prepped and draped in the usual sterile fashion, utilizing all elements of maximal sterile barrier technique, as described above. Moderate sedation was provided with IV Versed and fentanyl. 1 g Ancef was given IV, prophylactically. Using aseptic technique and local anesthesia, a small skin incision was made lateral to left internal jugular vein, just above clavicle. Using aseptic technique, local anesthesia, direct ultrasound guidance, and the micropuncture system, successful percutaneous entry was achieved into left internal jugular vein. The left IJ venostomy tract was then dilated and the 8 [place] catheter from a Bard power port system was easily advanced centrally through an 8.5 [place] peel-away sheath, and was positioned with this tip at the level of upper right atrium utilizing fluoroscopic guidance. A skin site suitable for placement of the power port body was then selected and marked along upper anterior aspect of left chest, overlying anterior aspect of left second rib. Using aseptic technique and local anesthesia, a horizontally oriented skin incision was made in this location. A subcutaneous chest wall pocket was then created and was packed with vancomycin soaked gauze. A subcutaneous tunnel was then fashioned between the chest wall pocket and the initial supraclavicular incision. The 8 [place] power port catheter was then pulled through the subcutaneous tunnel from superior to inferior, utilizing the tunneling device provided. The catheter was then trimmed to an appropriate length and was connected to the power port body, which had been previously flushed with, and soaked in, vancomycin solution. The vancomycin soaked gauze was then removed from the chest wall pocket, which was then copiously irrigated with vancomycin solution. The power port body was then easily introduced into the chest wall pocket and was secured in place utilizing two 2-0 Vicryl sutures. The power port was then accessed utilizing a Flores needle, was documented to flush and aspirate normally, and was packed with heparinized saline. The chest incision was then closed with 2-0 Vicryl, 4-0 Vicryl, Steri-Strips, and sterile dressing. The small supraclavicular incision was closed with 4-0 Vicryl, Steri-Strips, and sterile dressing. Patient tolerated the procedure well without apparent complication. Satisfactory position of the power port was confirmed with a single fluoroscopic spot image. Impression: Successful, uneventful ultrasound and fluoroscopy guided placement of left IJ 8 [place] tunneled power port, as described.
[2016-11-07] MEDS: HYDROcodone/APAP 5/325MG 1 TAB TABLET PO PRN ×2 (06:26→15:35)
[2016-11-07] MEDS: LEVOTHYROXINE 125 MCG TABLET PO SCH (06:26)
[2016-11-07 07:00] VITALS: BP 94/57
[2016-11-07] MEDS: IPRATRPIUM/ALBUTEROL 0.5/2.5MG 3 ML NEBU. NEB SCH ×3 (07:41→16:02)
[2016-11-07] MEDS: LINAGLIPTIN 5 MG TABLET PO SCH (08:47)
[2016-11-07] MEDS: CHOLECALCIFEROL (VITAMIN D3) 1,000 UNIT TABLET PO SCH (08:47)
[2016-11-07] MEDS: ASPIRIN 325 MG TABLET PO SCH (08:47)
[2016-11-07] MEDS: PANTOPRAZOLE 40 MG TABLET.DR. PO SCH (08:47)
[2016-11-07] MEDS: POTASSIUM CHLORIDE 10 MEQ TABLET.ER. PO SCH (08:48)
[2016-11-07] MEDS: GABAPENTIN 300 MG CAPSULE. PO SCH (08:48)
[2016-11-07] MEDS: FERROUS SULFATE 325 MG TABLET. PO SCH (08:48)
[2016-11-07] MEDS: LISINOPRIL 40 MG TABLET. PO SCH (08:49)
[2016-11-07] MEDS: PROMETH/CODEINE 6.25/10MG 5 ML SYRUP. PO PRN (08:49)
[2016-11-07] MEDS: BRIMONIDINE 0.2% OPHTH SOLUTION 5ML BOTTLE. OU SCH (08:49)
[2016-11-07] MEDS: INSULIN ASPART 300 UNITS/3 ML INSULN.PEN SQ SCH ×2 (08:53→12:15)
--- NOTE | 2016-11-07 09:02 | PDOC ---
PROGRESS NOTES Chief Complaint Chief Complaint Acute hypoxic respir failure ASSESSMENT AND PLAN: 1. CHF exacerbation: systolic (EF 30-35%), with severe pHTN. dobutamine on O/ P basis per cardiology 2. CAD: acute angina resolved. s/p CABG in Aug 2016. s/p cath on 11/02: grafted vessels clean. 3. Dilated cardiomyopathy, ischemic: hx pacer placement 4. BELINDA on CKD3: acute portion due to CHF/ vasomotor changes. now resolved. at baseline creat 5. HTN, HLD: well controlled on home meds 6. DM2: on trajenta, well controlled 7. GI bleed: chronic. apparently had scopes at [facility] in Jul w/o significant findings 8. Anemia: iron deficiency; s/p IV iron x5. 9. Malnutrition: cardiac diet with protein high 10. Weakness and debility: 2/2 cardiac issues, malnutrition. 11. IV access: with planned long-term dobutamine infusions, requires port placement, accomplished yesterday 12. Dispo: home post IV dobutamine History of Present Illness History of Present Illness feels great, just finished up dobutamine gtt. eager to leave. denies CP, SOB Vitals Vitals Vital Signs Date Time Temp Pulse Resp B/P (MAP) Pulse Ox O2 Delivery O2 Flow Rate FiO2 11/07/16 08:49 63 94/57 11/07/16 07:50 Nasal Cannula 4.0 11/07/16 07:41 93 11/07/16 07:26 16 11/07/16 07:00 98.1 98.1 Physical Exam General: Alert, Cooperative, No acute distress Heart: Regular rate, No murmurs Lungs: Clear Abdomen: Normal bowel sounds, Soft Extremities: No clubbing, No edema Skin: No rashes Labs LABS Laboratory Tests Test 11/06/16 11:38 11/06/16 18:06 11/06/16 21:01 11/07/16 07:30 Glucose (Fingerstick) 129 mg/dL (70-99) 145 mg/dL (70-99) 148 mg/dL (70-99) 117 mg/dL (70-99) SAUL MENDOZA MD November 07, 2016 09:02
[2016-11-07 10:30] VITALS: BP 105/51
--- NOTE | 2016-11-07 10:48 | PDOC ---
G I PROGRESS NOTE Subjective NO GI complaints. Says breathing well. Physical Exam Abdomen soft, not tender nor distended. Review of Relevant I have reviewed the following items dorian (where applicable) has been applied. Labs Laboratory Tests Test 11/05/16 11:45 11/05/16 16:52 11/05/16 20:41 11/06/16 03:07 Glucose (Fingerstick) 159 mg/dL (70-99) 143 mg/dL (70-99) 118 mg/dL (70-99) Sodium Level 133 mmol/L (136-145) Potassium Level 4.8 mmol/L (3.5-5.1) Chloride Level 101 mmol/L (98-107) Carbon Dioxide Level 24 mmol/L (21-32) Anion Gap 8 (6-14) Blood Urea Nitrogen 19 mg/dL (8-26) Creatinine 1.1 mg/dL (0.7-1.3) Estimated GFR (Cockcroft-Gault) 65.8 Glucose Level 105 mg/dL (70-99) Calcium Level 8.0 mg/dL (8.5-10.1) Phosphorus Level 3.7 mg/dL (2.6-4.7) Albumin 2.4 g/dL (3.4-5.0) Test 11/06/16 07:33 11/06/16 08:00 11/06/16 11:38 11/06/16 18:06 Glucose (Fingerstick) 110 mg/dL (70-99) 129 mg/dL (70-99) 145 mg/dL (70-99) Prothrombin Time 14.1 SEC (11.7-14.0) Prothromb Time International Ratio 1.2 (0.8-1.1) Test 11/06/16 21:01 11/07/16 07:30 Glucose (Fingerstick) 148 mg/dL (70-99) 117 mg/dL (70-99) Laboratory Tests Test 11/06/16 11:38 11/06/16 18:06 11/06/16 21:01 11/07/16 07:30 Glucose (Fingerstick) 129 mg/dL (70-99) 145 mg/dL (70-99) 148 mg/dL (70-99) 117 mg/dL (70-99) Microbiology 11/03/16 Blood Culture - Preliminary, Resulted NO GROWTH AFTER 4 DAYS 10/27/16 Urine Culture - Final, Complete 10/27/16 Urine Culture Result 1 (JANEL) - Final, Complete Hemoglobin has светлана stable. Medications Current Medications Pantoprazole Sodium (Protonix Vial) 40 mg DAILYAC IVP Last administered on 08:32; Start 10/26/16 at 17:00; Stop 10/30/16 at 11:57; Status DC Dobutamine HCl/ Dextrose 250 ml @ 0 mls/hr CONT PRN IV SEE I/O RECORD Last administered on 10/29/16 03:02; Start 10/26/16 at 17:00; Stop 10/30/16 at 10:57 ; Status DC Furosemide (Lasix) 60 mg 1X ONCE IVP Last administered on 10/27/16 08:15; Start 10/27/16 at 08:30; Stop 10/27/16 at 08:31; Status DC Sodium Bicarbonate 50 meq Q2HR IV Last administered on 10/27/16 12:38; Start 10/27/16 at 10:00; Stop 10/27/16 at 12:01; Status DC Albuterol/ Ipratropium (Duoneb) 3 ml RTQID NEB Last administered on 11/07/16 07 :41; Start 10/27/16 at 12:00 Heparin Sodium (Porcine) (Heparin Sodium) 10,000 unit STK-MED ONCE .ROUTE ; Start 10/27/16 at 10:01; Stop 10/27/16 at 10:02; Status DC Lidocaine/Sodium Bicarbonate (Buffered Lidocaine 1%) 20 ml STK-MED ONCE IJ ; Start 10/27/16 at 10:01; Stop 10/27/16 at 10:02; Status DC Heparin Sodium/ Sodium Chloride 500 ml @ As Directed STK-MED ONCE .ROUTE ; Start 10/27/16 at 10:01; Stop 10/27/16 at 10:02; Status DC Lidocaine/Sodium Bicarbonate (Buffered Lidocaine 1%) 3 ml 1X ONCE IJ Last administered on 10/27/16 12:16; Start 10/27/16 at 10:15; Stop 10/27/16 at 10:16 ; Status DC Heparin Sodium/ Sodium Chloride 60 unit 1X ONCE IV Last administered on 12:14; Start 10/27/16 at 10:15; Stop 10/27/16 at 10:16; Status DC Heparin Sodium (Porcine) (Heparin Sodium) 2,500 unit 1X ONCE INT CAT Last administered on 10/27/16 12:16; Start 10/27/16 at 10:15; Stop 10/27/16 at 10:16 ; Status DC Aspirin (Krystian Aspirin) 325 mg DAILY PO Last administered on 11/07/16 08:47; Start 10/27/16 at 12:00 Vitamin D (Vitamin D3) 1,000 unit DAILY PO Last administered on 11/07/16 08:47 ; Start 10/27/16 at 12:00 Diltiazem HCl (Cardizem Cd) 300 mg DAILY PO Last administered on 11/07/16 08:47 ; Start 10/27/16 at 12:00 Furosemide (Lasix) 40 mg [id number] PO Last administered on 10/28/16 17:13; Start 10/27/16 at 12:00; Stop 10/29/16 at 07:12; Status DC Insulin Aspart (Novolog) 11 units TIDWMEALS SQ Last administered on 11/07/16 08 :53; Start 10/27/16 at 12:00 Levothyroxine Sodium (Synthroid) 125 mcg DAILY07 PO Last administered on 06:26; Start 10/27/16 at 12:00 Lisinopril (Prinivil) 40 mg DAILY PO Last administered on 11/07/16 08:49; Start 10/27/16 at 12:00 Methocarbamol (Robaxin) 500 mg PRN TID PRN PO MUSCLE SPASMS Last administered on 11/03/16 20:50; Start 10/27/16 at 11:15 Tamsulosin HCl (Flomax) 0.4 mg QHS PO Last administered on 11/06/16 20:56; Start 10/27/16 at 21:00 Albuterol Sulfate (Ventolin Neb Soln) 2.5 mg PRN Q4HRS PRN NEB SHORTNESS OF BREATH Last administered on 10/30/16 01:38; Start 10/27/16 at 11:30 Brimonidine Tartrate (Alphagan) 1 drop BID OU Last administered on 11/07/16 08: 49; Start 10/27/16 at 12:00 Artificial Tears (Artificial Tears) 1 drop PRN Q15MIN PRN OU DRY EYE; Start at 11:30 Ferrous Sulfate (Feosol) 325 mg BIDWMEALS PO Last administered on 11/07/16 08: 48; Start 10/27/16 at 12:00 Gabapentin (Neurontin) 300 mg BID PO Last administered on 11/07/16 08:48; Start 10/27/16 at 12:00 Non-Formulary Medication 1 inh QID IH ; Start 10/27/16 at 13:00; Status UNV Non-Formulary Medication 1 each TID TP ; Start 10/27/16 at 14:00; Status UNV Non-Formulary Medication 1 tab BID PO ; Start 10/27/16 at 21:00; Status UNV Potassium Chloride (Klor-Con) 10 meq [id number] PO Last administered on 08:48; Start 10/28/16 at 08:00 Atorvastatin Calcium (Lipitor) 20 mg QHS PO Last administered on 11/06/16 20:56 ; Start 10/27/16 at 21:00 Linagliptin (Tradjenta) 5 mg DAILY PO Last administered on 11/07/16 08:47; Start 10/27/16 at 12:00 Furosemide (Lasix) 60 mg 1X ONCE IVP ; Start 10/28/16 at 08:00; Stop 10/28/16 at 08:01; Status DC Sodium Bicarbonate 50 meq Q2HR IV Last administered on 10/29/16 10:14; Start 10/29/16 at 08:00; Stop 10/29/16 at 10:01; Status DC Sodium Bicarbonate 150 meq/Sterile Water 1,150 ml @ 80 mls/hr [id number] PRN IV . Last administered on 10/29/16 16:41; Start 10/29/16 at 07:45; Stop 10/30/16 at 12:28; Status DC Sodium Chloride 500 ml @ 30 mls/hr CONT PRN PRN IV see comments; Start at 07:45; Stop 10/30/16 at 12:28; Status DC Acetaminophen (Tylenol) 650 mg PRN Q6HRS PRN PO PAIN Last administered on 16:52; Start 10/29/16 at 11:15 Nystatin (Nystop) 1 summer TID PRN PRN TP REDNESS; Start 10/29/16 at 11:15 Multi-Ingredient Ointment (Analgesic [place]) 1 summer PRN QID PRN TP MUSCLE PAIN Last administered on 10/30/16 16:52; Start 10/29/16 at 11:15 Magnesium Sulfate/ Dextrose 50 ml @ 25 mls/hr PRN DAILY PRN IV for Mag < 1.7 on am labs; Start 10/30/16 at 09:45 Dobutamine HCl/ Dextrose 250 ml @ 0 mls/hr CONT PRN IV SEE I/O RECORD Last administered on 11/01/16 18:04; Start 10/30/16 at 11:00; Stop 11/03/16 at 11:16; Status DC Pantoprazole Sodium (Protonix) 40 mg DAILYAC PO Last administered on 11/07/16 08:47; Start 10/31/16 at 07:30 Iron Sucrose 200 mg/Sodium Chloride 110 ml @ 55 mls/hr 3X/WEEK IV Last administered on 11/06/16 09:39; Start 11/01/16 at 09:00; Stop 11/10/16 at 10:59 Sodium Chloride 500 ml @ 30 mls/hr CONT PRN PRN IV see comments Last administered on 11/01/16 03:29; Start 10/31/16 at 09:00; Stop 11/03/16 at 15:31; Status DC Acetaminophen/ Hydrocodone Bitart (Lortab 5/325) 1 tab PRN Q4HRS PRN PO PAIN Last administered on 11/07/16 06:26; Start 10/31/16 at 20:30 Furosemide (Lasix) 20 mg 1X ONCE IVP ; Start 11/01/16 at 15:45; Stop 11/01/16 at 16:05; Status DC Furosemide (Lasix) 20 mg 1X ONCE IVP Last administered on 11/01/16 21:15; Start 11/01/16 at 21:15; Stop 11/01/16 at 21:16; Status DC Magnesium Sulfate/ Dextrose 100 ml @ 100 mls/hr 1X ONCE IV Last administered on 11/02/16 09:45; Start 11/02/16 at 09:45; Stop 11/02/16 at 10:44; Status DC Sodium Acetate 75 meq/Sodium Chloride 1,037.5 ml @ 75 mls/hr [id number] IV Last administered on 11/03/16 01:24; Start 11/02/16 at 10:00; Stop 11/05/16 at 21:19; Status DC Acetylcysteine (Mucomyst 20% Oral Solution) 1,200 mg BID PO Last administered on 11/04/16 09:21; Start 11/02/16 at 09:45; Stop 11/04/16 at 09:44; Status DC Heparin Sodium/ Sodium Chloride 500 ml @ As Directed STK-MED ONCE .ROUTE ; Start 11/02/16 at 12:13; Stop 11/02/16 at 12:14; Status DC Lidocaine HCl 20 ml STK-MED ONCE .ROUTE ; Start 11/02/16 at 12:13; Stop 11/02/16 at 12:14; Status DC Iodixanol (Visipaque 320) 100 ml STK-MED ONCE .ROUTE ; Start 11/02/16 at 12:13; Stop 11/02/16 at 12:14; Status DC Midazolam HCl (Versed) 2 mg STK-MED ONCE .ROUTE ; Start 11/02/16 at 13:10; Stop 11/02/16 at 13:11; Status DC Fentanyl Citrate (Fentanyl 2ml Vial) 100 mcg STK-MED ONCE .ROUTE ; Start at 13:10; Stop 11/02/16 at 13:11; Status DC Lidocaine HCl 20 ml 1X ONCE IJ Last administered on 11/02/16 13:51; Start 11/02 at 13:30; Stop 11/02/16 at 13:32; Status DC Heparin Sodium/ Sodium Chloride 1,000 unit 1X ONCE IV Last administered on 11/02 13:51; Start 11/02/16 at 13:30; Stop 11/02/16 at 13:32; Status DC Fentanyl Citrate (Fentanyl 2ml Vial) 25 mcg 1X ONCE IV Last administered on 13:52; Start 11/02/16 at 13:30; Stop 11/02/16 at 13:32; Status DC Midazolam HCl (Versed) 1 mg 1X ONCE IV Last administered on 11/02/16 13:52; Start 11/02/16 at 13:30; Stop 11/02/16 at 13:32; Status DC Iodixanol (Visipaque 320) 100 ml 1X ONCE IART Last administered on 11/02/16 13 :52; Start 11/02/16 at 13:30; Stop 11/02/16 at 13:32; Status DC Info (Do NOT chart on this entry -- for MONITORING) 1 each PRN DAILY PRN MC SEE COMMENTS; Start 11/02/16 at 13:45; Stop 11/04/16 at 13:44; Status DC Iodixanol (Visipaque 320) 100 ml STK-MED ONCE .ROUTE ; Start 11/02/16 at 13:35; Stop 11/02/16 at 13:36; Status DC Magnesium Sulfate/ Dextrose 50 ml @ 25 mls/hr 1X ONCE IV Last administered on 11/03/16 11:12; Start 11/03/16 at 11:00; Stop 11/03/16 at 12:59; Status DC Sodium Chloride 500 ml @ 500 mls/hr 1X ONCE IV ; Start 11/03/16 at 10:45; Stop 11/03/16 at 11:44; Status DC Albumin Human 500 ml @ 125 mls/hr 1X ONCE IV Last administered on 11/03/16 12 :23; Start 11/03/16 at 11:15; Stop 11/03/16 at 15:14; Status DC Guaifenesin (Mucinex) 600 mg BID PO Last administered on 11/07/16 08:47; Start 11/05/16 at 21:00 Promethazine HCl/ Codeine (Phenergan With Codeine) 5 ml PRN Q6HRS PRN PO COUGH Last administered on 11/07/16 08:49; Start 11/05/16 at 22:30 Heparin Sodium (Porcine) (Hep Lock Adult) 500 unit STK-MED ONCE IV ; Start at 15:59; Stop 11/06/16 at 16:00; Status DC Lidocaine/ Epinephrine (Xylocaine 1%-Epi 1:100,000) 20 ml STK-MED ONCE .ROUTE ; Start 11/06/16 at 15:59; Stop 11/06/16 at 16:00; Status DC Heparin Sodium/ Sodium Chloride 500 ml @ As Directed STK-MED ONCE .ROUTE ; Start 11/06/16 at 15:59; Stop 11/06/16 at 16:00; Status DC Vancomycin HCl 250 ml @ As Directed STK-MED ONCE .ROUTE ; Start 11/06/16 at 15: 59; Stop 11/06/16 at 16:00; Status DC Midazolam HCl (Versed) 5 mg STK-MED ONCE .ROUTE ; Start 11/06/16 at 16:27; Stop 11/06/16 at 16:28; Status DC Fentanyl Citrate (Fentanyl 5ml Vial) 250 mcg STK-MED ONCE .ROUTE ; Start at 16:27; Stop 11/06/16 at 16:28; Status DC Cefazolin Sodium 50 ml @ As Directed STK-MED ONCE IV ; Start 11/06/16 at 16:27; Stop 11/06/16 at 16:28; Status DC Heparin Sodium/ Sodium Chloride 1,000 unit 1X ONCE IART Last administered on 16:45; Start 11/06/16 at 16:45; Stop 11/06/16 at 16:50; Status DC Midazolam HCl (Versed) 2 mg 1X ONCE IV Last administered on 11/06/16 17:11; Start 11/06/16 at 16:45; Stop 11/06/16 at 16:50; Status DC Fentanyl Citrate (Fentanyl 5ml Vial) 100 mcg 1X ONCE IV Last administered on 17:11; Start 11/06/16 at 16:45; Stop 11/06/16 at 16:50; Status DC Lidocaine/ Epinephrine (Xylocaine 1%-Epi 1:100,000) 20 ml 1X ONCE IJ Last administered on 11/06/16 16:45; Start 11/06/16 at 16:45; Stop 11/06/16 at 16:50; Status DC Cefazolin Sodium 50 ml @ 100 mls/hr 1X ONCE IV Last administered on 11/06/16 17:10; Start 11/06/16 at 16:45; Stop 11/06/16 at 17:14; Status DC Vancomycin HCl 250 ml @ 250 mls/hr 1X ONCE IRR Last administered on 11/06/16 17:10; Start 11/06/16 at 16:45; Stop 11/06/16 at 17:44; Status DC Heparin Sodium (Porcine) (Hep Lock Adult) 500 unit 1X ONCE IV Last administered on 11/06/16 17:12; Start 11/06/16 at 16:45; Stop 11/06/16 at 16:50; Status DC Dobutamine HCl/ Dextrose 250 ml @ 0 mls/hr 1X ONCE IV ; Start 11/07/16 at 08:00 ; Stop 11/07/16 at 08:01; Status Cancel Dobutamine HCl/ Dextrose 250 ml @ 0 mls/hr 1X ONCE IV Last administered on 11/07 09:38; Start 11/07/16 at 09:00; Stop 11/07/16 at 09:03; Status DC Active Scripts Active Reported Tamsulosin Hcl 0.4 Mg Cap.er.24h 0.4 Mg PO QHS Onglyza (Saxagliptin Hcl) 5 Mg Tablet 1 Tab PO DAILY Crestor (Rosuvastatin Calcium) 10 Mg Tablet 0.5 Tab PO DAILY Potassium Chloride 20 Meq Tablet.er 10 Meq PO DAILY Omeprazole 20 Mg Tablet.dr 1 Tab PO BID Nitrostat (Nitroglycerin) 0.3 Mg Tab.subl 0.3 Mg SL PRN Q5MIN PRN Methocarbamol 500 Mg Tablet 500 Mg PO PRN TID PRN [place] Ultra Strength (Menthol) 1 Each Adh..patch 1 Each TP TID Lisinopril 40 Mg Tablet 1 Tab PO DAILY Levothyroxine Sodium 125 Mcg Tablet 1 Tab PO DAILY Novolog Flexpen (Insulin Aspart) 100 Unit/1 Ml Insuln.pen 11 Unit SQ TIDWMEALS Gabapentin 300 Mg Capsule 300 Mg PO TID Furosemide 40 Mg Tablet 40 Mg PO BID Ferrous Sulfate 324 Mg Tablet.dr 324 Mg PO BID Cardizem Cd (Diltiazem Hcl) 300 Mg Cap.er.24h 300 Mg PO DAILY Vitamin D3 (Cholecalciferol (Vitamin D3)) 1,000 Unit Tablet 1 Tab PO DAILY Refresh Optive Advanced Drops (Carboxymethyl/Glycerin/Poly80) 10 Ml Drops 1 Drop OP PRN QID PRN Alphagan P (Brimonidine Tartrate) 5 Ml Drops 1 Drop EACHEYE BID Aspirin 325 Mg Tablet 1 Tab PO DAILY Albuterol Sulfate Conc Neb Soln (Albuterol Sulfate) 2.5 Mg/0.5 Ml Vial.neb 1 Vial NEB Q4HRS Combivent Respimat Inhal (Ipratropium/Albuterol Sulfate) 4 Gm Aer.w.adap 1 Inh IH QID Vitals/I & O Vital Sign - Last 24 Hours 11/06/16 11/06/16 11/06/16 11/06/16 11:53 14:55 15:52 16:00 Temp 97.6 97.6 Pulse 63 Resp 20 B/P (MAP) 99/48 (65) Pulse Ox 95 91 95 O2 Delivery Nasal Cannula Nasal Cannula Nasal Cannula O2 Flow Rate 4.0 4.0 11/06/16 11/06/16 11/06/16 11/06/16 17:11 17:19 17:40 18:20 Pulse 70 Resp 14 14 14 14 Pulse Ox 94 95 95 95 O2 Delivery Nasal Cannula Nasal Cannula Nasal Cannula Nasal Cannula O2 Flow Rate 6.0 6.0 4.0 4.0 11/06/16 11/06/16 11/06/16 11/06/16 19:24 20:00 20:52 23:00 Temp 97.8 98.1 97.8 98.1 Pulse 63 66 Resp 22 18 B/P (MAP) 111/50 (70) 92/51 (65) Pulse Ox 91 90 91 O2 Delivery Nasal Cannula Nasal Cannula Nasal Cannula BiPAP/CPAP O2 Flow Rate 4.0 4.0 4.0 11/06/16 11/06/16 11/07/16 11/07/16 23:02 23:33 01:46 03:17 Temp 97.9 97.9 Pulse 60 Resp 16 18 B/P (MAP) 90/54 (66) Pulse Ox 92 94 O2 Delivery BiPAP/CPAP BiPAP/CPAP BiPAP/CPAP BiPAP/CPAP 11/07/16 11/07/16 11/07/16 11/07/16 03:30 06:26 07:00 07:26 Temp 98.1 98.1 Pulse 63 Resp 20 18 16 B/P (MAP) 94/57 (69) Pulse Ox 94 89 93 O2 Delivery BiPAP/CPAP Nasal Cannula Nasal Cannula Nasal Cannula O2 Flow Rate 4.0 4.0 11/07/16 11/07/16 11/07/16 11/07/16 07:41 07:49 07:50 08:47 Pulse 63 B/P (MAP) 94/57 Pulse Ox 93 O2 Delivery Nasal Cannula Nasal Cannula O2 Flow Rate 4.0 4.0 4.0 11/07/16 11/07/16 08:49 10:30 Temp 98.0 98.0 Pulse 63 64 Resp 20 B/P (MAP) 94/57 105/51 (69) Pulse Ox 91 O2 Delivery Nasal Cannula Intake and Output 11/06/16 11/06/16 11/07/16 15:00 23:00 07:00 Intake Total 510 ml 400 ml Output Total 250 ml 225 ml Balance 510 ml -250 ml 175 ml Problem List Problems Medical Problems: (1) CHF exacerbation Status: Acute Assessment Stable GI-ghosh. Chronic NEHEMIAH. NIKKI GREENE MD November 07, 2016 10:48
--- NOTE | 2016-11-07 11:37 | PDOC ---
PULMONARY PROGRESS NOTES Subjective no soa Vitals Vital Signs Date Time Temp Pulse Resp B/P (MAP) Pulse Ox O2 Delivery O2 Flow Rate FiO2 11/07/16 10:30 98.0 64 20 105/51 (69) 91 Nasal Cannula 98.0 11/07/16 07:50 4.0 ROS: No Nausea, No Chest Pain, No Abdominal Pain, No Increase Cough General: Alert, No acute distress HEENT: Other (nc at perrl nose throat clear) Lungs: Clear Cardiovascular: S1, S2 Abdomen: Soft, Non-tender, Other (no mass) Neuro Exam: Alert Extremities: Other (1+edema) Skin: Warm Labs Laboratory Tests Test 11/05/16 11:45 11/05/16 16:52 11/05/16 20:41 11/06/16 03:07 Glucose (Fingerstick) 159 mg/dL (70-99) 143 mg/dL (70-99) 118 mg/dL (70-99) Sodium Level 133 mmol/L (136-145) Potassium Level 4.8 mmol/L (3.5-5.1) Chloride Level 101 mmol/L (98-107) Carbon Dioxide Level 24 mmol/L (21-32) Anion Gap 8 (6-14) Blood Urea Nitrogen 19 mg/dL (8-26) Creatinine 1.1 mg/dL (0.7-1.3) Estimated GFR (Cockcroft-Gault) 65.8 Glucose Level 105 mg/dL (70-99) Calcium Level 8.0 mg/dL (8.5-10.1) Phosphorus Level 3.7 mg/dL (2.6-4.7) Albumin 2.4 g/dL (3.4-5.0) Test 11/06/16 07:33 11/06/16 08:00 11/06/16 11:38 11/06/16 18:06 Glucose (Fingerstick) 110 mg/dL (70-99) 129 mg/dL (70-99) 145 mg/dL (70-99) Prothrombin Time 14.1 SEC (11.7-14.0) Prothromb Time International Ratio 1.2 (0.8-1.1) Test 11/06/16 21:01 11/07/16 07:30 Glucose (Fingerstick) 148 mg/dL (70-99) 117 mg/dL (70-99) Laboratory Tests Test 11/06/16 11:38 11/06/16 18:06 11/06/16 21:01 11/07/16 07:30 Glucose (Fingerstick) 129 mg/dL (70-99) 145 mg/dL (70-99) 148 mg/dL (70-99) 117 mg/dL (70-99) Medications Active Scripts Medications Dose Route/Sig Days Date Category Tamsulosin Hcl 0.4 Mg Cap.er.24h 0.4 Mg PO QHS 10/27/16 Reported Onglyza (Saxagliptin Hcl) 5 Mg Tablet 1 Tab PO DAILY 10/27/16 Reported Crestor (Rosuvastatin Calcium) 10 Mg Tablet 0.5 Tab PO DAILY 10/27/16 Reported Potassium Chloride 20 Meq Tablet.er 10 Meq PO DAILY 10/27/16 Reported Omeprazole 20 Mg Tablet.dr 1 Tab PO BID 10/27/16 Reported Nitrostat (Nitroglycerin) 0.3 Mg Tab.subl 0.3 Mg SL PRN Q5MIN PRN 10/27/16 Reported Methocarbamol 500 Mg Tablet 500 Mg PO PRN TID PRN 10/27/16 Reported Bengay Ultra Strength (Menthol) 1 Each Adh..patch 1 Each TP TID 10/27/16 Reported Lisinopril 40 Mg Tablet 1 Tab PO DAILY 10/27/16 Reported Levothyroxine Sodium 125 Mcg Tablet 1 Tab PO DAILY 10/27/16 Reported Novolog Flexpen (Insulin Aspart) 100 Unit/1 Ml Insuln.pen 11 Unit SQ TIDWMEALS 10/27/16 Reported Gabapentin 300 Mg Capsule 300 Mg PO TID 10/27/16 Reported Furosemide 40 Mg Tablet 40 Mg PO BID 10/27/16 Reported Ferrous Sulfate 324 Mg Tablet. 324 Mg PO BID 10/27/16 Reported Cardizem Cd (Diltiazem Hcl) 300 Mg Cap.er.24h 300 Mg PO DAILY 10/27/16 Reported Vitamin D3 (Cholecalciferol (Vitamin D3)) 1,000 Unit Tablet 1 Tab PO DAILY 10/27/16 Reported Refresh Optive Advanced Drops (Carboxymethyl/Glycerin/Poly80) 10 Ml Drops 1 Drop OP PRN QID PRN 10/27/16 Reported Alphagan P (Brimonidine Tartrate) 5 Ml Drops 1 Drop EACHEYE BID 10/27/16 Reported Aspirin 325 Mg Tablet 1 Tab PO DAILY 10/27/16 Reported Albuterol Sulfate Conc Neb Soln (Albuterol Sulfate) 2.5 Mg/0.5 Ml Vial.neb 1 Vial NEB Q4HRS 10/27/16 Reported Combivent Respimat Inhal (Ipratropium/Albuterol Sulfate) 4 Gm Aer.w.adap 1 Inh IH QID 10/27/16 Reported Comments cxr reviewed, l small effusion, atelectasis Impression . 1. Acute hypoxemic respiratory failure/AECOPD/ Acute on chronic systolic/ Diastolic HF 2. Acute on chronic kidney failure. 3. Chronic heart failure, Acute on chronic systolic/ diastolic heart failure. 4. Cardiomyopathy. (EF 25 ) 5. Status post pacemaker. 6. Coronary artery disease, status post coronary artery bypass grafting. 7. Hypertension. 8. Obstructive sleep apnea. 9. Acute on chronic blood-loss anemia. Plan . 1. BiPAP prn during day, cont at night 2. Venous Dopplers of the lower extremities, neg 3. Follow cardiology input/ cath severe cad, cm, pulm htn, dobutamine per cardiology/ high left heart filling pressures 4. No need for antibiotics. 5. Monitor hemoglobin and hematocrit. 6. monitor k tirso cath placed for OP dobutamine ok with REFUGIO Apodaca MD November 07, 2016 11:37
[2016-11-07] MEDS ORDERED: FURO40TA4 PO (12:30)
[2016-11-07] MEDS ORDERED: FERR324T5 PO (12:30)
[2016-11-07 15:24] VITALS: BP 107/48
[2016-11-07] MEDS ORDERED: HEPARIN PF 500 UNIT/5 ML DISP.SYRIN. IV ONE (15:30)
--- NOTE | 2016-11-11 01:50 | DS ---
DATE OF DISCHARGE: 11/07/2016 CHIEF COMPLAINT: Acute hypoxic respiratory failure. HOSPITAL COURSE: The patient is a 71-year-old gentleman with significant CAD, status post CABG in 08/2016 as well as CHF with an ejection fraction of 30-35 and severe pulmonary hypertension. He presented to the Emergency Room with acute respiratory failure. He was started with diuresis, required dobutamine and in follow up with Dr. Ceballos, determination was made that he would require chronic dobutamine treatment. This was planned for at least twice a week. He did receive a dose on day of discharge. During his hospitalization, acute kidney injury was noted, which was attributed to CHF. This thankfully resolved back to his baseline CKD, stage 3. Diabetes mellitus remained well controlled on Tradjenta. Hypertension and hyperlipidemia were monitored and well controlled on his home medications. Shortly before his discharge, the patient received port placement to facilitate long-term dobutamine infusions. DISCHARGE DATE: 11/07/2016. DISCHARGE EXAMINATION: Please refer to note from same day. DISCHARGE DISPOSITION: To home. DISCHARGE CONDITION: Improved. DISCHARGE DIAGNOSES: Congestive heart failure, acute hypoxic respiratory failure. DISCHARGE MEDICATIONS: Please refer to MAR. DISCHARGE INSTRUCTIONS: The patient will receive twice weekly dobutamine infusions either at the [facility] or his [facility] in [place]. He will follow up with Dr. Ceballos at the [facility]. SAUL MENDOZA MD DR: UR/nts JOB#: [id number] / [id number] MOISES
== END 2016-11-07 17:00 | disposition home or self-care (01) | DRG 673 ==
LOC: 2 NORTH 13:32 → 1 WEST ICU 16:16 → 2 NORTH 11-03 19:01
PROVIDERS: ADMIT Internal Medicine; ATTEND Internal Medicine
PROC: 30233N1 Transfusion of Nonautologous Red Blood Cells into Peripheral Vein, Percutaneous Approach (ICD-10-PCS; 2016-10-26)
PROC: 4A12XSH Monitoring of Cardiac Vascular Perfusion using Indocyanine Green Dye, External Approach (ICD-10-PCS; 2016-10-26)
PROC: 02H633Z Insertion of Infusion Device into Right Atrium, Percutaneous Approach (ICD-10-PCS; 2016-10-28)
PROC: B2141ZZ Fluoroscopy of Right Heart using Low Osmolar Contrast (ICD-10-PCS; 2016-10-28)
PROC: 5A09457 Assistance with Respiratory Ventilation, 24-96 Consecutive Hours, Continuous Positive Airway Pressure (ICD-10-PCS; 2016-10-29)
PROC: 4A023N8 Measurement of Cardiac Sampling and Pressure, Bilateral, Percutaneous Approach (ICD-10-PCS; principal; 2016-11-02)
PROC: B2111ZZ Fluoroscopy of Multiple Coronary Arteries using Low Osmolar Contrast (ICD-10-PCS; 2016-11-02)
PROC: B2151ZZ Fluoroscopy of Left Heart using Low Osmolar Contrast (ICD-10-PCS; 2016-11-02)
PROC: 0JH63XZ Insertion of Tunneled Vascular Access Device into Chest Subcutaneous Tissue and Fascia, Percutaneous Approach (ICD-10-PCS; 2016-11-07)
PROC: 02H633Z Insertion of Infusion Device into Right Atrium, Percutaneous Approach (ICD-10-PCS; 2016-11-07)
PROC: B2141ZZ Fluoroscopy of Right Heart using Low Osmolar Contrast (ICD-10-PCS; 2016-11-07)
PROC: 3E083GC Introduction of Other Therapeutic Substance into Heart, Percutaneous Approach (ICD-10-PCS; 2016-11-07)
DX: N17.0 Acute kidney failure with tubular necrosis (principal); I50.43 Acute on chronic combined systolic (congestive) and diastolic (congestive) heart failure; J96.01 Acute respiratory failure with hypoxia; I13.0 Hypertensive heart and chronic kidney disease with heart failure and stage 1 through stage 4 chronic kidney disease, or unspecified chronic kidney disease; K92.2 Gastrointestinal hemorrhage, unspecified; E87.1 Hypo-osmolality and hyponatremia; D62 Acute posthemorrhagic anemia; E87.2 Acidosis; J44.1 Chronic obstructive pulmonary disease with (acute) exacerbation; E46 Unspecified protein-calorie malnutrition; I42.0 Dilated cardiomyopathy; I25.110 Atherosclerotic heart disease of native coronary artery with unstable angina pectoris; N18.4 Chronic kidney disease, stage 4 (severe); E11.22 Type 2 diabetes mellitus with diabetic chronic kidney disease; E78.5 Hyperlipidemia, unspecified; Z95.1 Presence of aortocoronary bypass graft; K21.9 Gastro-esophageal reflux disease without esophagitis; G47.33 Obstructive sleep apnea (adult) (pediatric); E03.9 Hypothyroidism, unspecified; N40.0 Benign prostatic hyperplasia without lower urinary tract symptoms; I95.9 Hypotension, unspecified; I27.2 Other secondary pulmonary hypertension; I48.91 Unspecified atrial fibrillation; Z96.1 Presence of intraocular lens; Z82.49 Family history of ischemic heart disease and other diseases of the circulatory system; Z95.0 Presence of cardiac pacemaker; Z88.8 Allergy status to other drugs, medicaments and biological substances; Z87.891 Personal history of nicotine dependence; Z68.31 Body mass index [BMI] 31.0-31.9, adult; I25.2 Old myocardial infarction
CPT/HCPCS: 36415; 36556; 36561; 36600; 71010; 76770; 76937; 77001; 80053; 80061; 80069; 81001; 82533; 82553; 82570; 82728; 82805; 82947; 83540; 83550; 83605; 83735; 83880; 83930; 83935; 84156; 84295; 84300; 84443; 84484; 84550; 85007; 85027; 85045; 85610; 86850; 86900; 86901; 86920; 87040; 87086; 87641; 93005; 93306; 93308; 93461; 93567; 93970; 94250; 94640; 94660; 94760; A4215; C1751; C1769; C1771; C1773; C1892; C9113; G0269; J0690; J1250; J1756; J1815; J2250; J3010; J3370; J3475; J3490; J7060; J7620; P9016; P9045; 97110; 97116; 97530; 97535